=== PATIENT | female | born 1940 ===

== ENCOUNTER 2017-12-05 07:24 | Day surgery (SDC) | payer MEDICARE, OTHER ==
[2017-12-05 07:55] VITALS: BMI 37.1
[2017-12-05] MEDS ORDERED: Propofol 10 mg/ml Inj (20 ML) ONE ×2 (09:05→09:24)
[2017-12-05 10:34] VITALS: TEMP 97.5
[2017-12-05 10:35] VITALS: PULSE 70
[2017-12-05 10:47] VITALS: O2SAT 98
[2017-12-05 11:53] VITALS: BP 149/63; RESP 16
== END 2017-12-05 11:30 | disposition home or self-care (01) ==
LOC: C.ENDO 07:24
PROVIDERS: ATTEND Internal Medicine Gastroenterology
DX: Z12.11 Encounter for screening for malignant neoplasm of colon (principal); D3A.8 Other benign neuroendocrine tumors; K57.30 Diverticulosis of large intestine without perforation or abscess without bleeding; K64.1 Second degree hemorrhoids; K21.0 Gastro-esophageal reflux disease with esophagitis; K29.70 Gastritis, unspecified, without bleeding
CPT/HCPCS: 43239; 45378; 88305; 88312; 88313; 88342; J2001; J2704; J3010

== ENCOUNTER 2017-12-16 06:07 | Inpatient (IN) | payer MEDICARE, OTHER ==
[2017-12-16] MEDS ORDERED: Lactated Ringer's 1,000 ML IV ONE (07:45)
[2017-12-16] MEDS ORDERED: Simethicone 40 mg/0.6 ml Liquid (30 ml) ONE (08:02)
[2017-12-16] MEDS ORDERED: ePHEDrine 50 mg/ml Inj ONE (08:06)
[2017-12-16] MEDS ORDERED: Propofol 10 mg/ml Inj (20 ML) ONE ×2 (08:06→08:45)
[2017-12-16] MEDS ORDERED: Midazolam 2 MG/2 ML VIAL ONE (08:06)
[2017-12-16] MEDS ORDERED: Pantoprazole 80 MG in Sodium Chloride 0.9% 100 ML IV ONE (09:30)
[2017-12-16] MEDS ORDERED: Morphine 4 MG/ML VIAL IV PRN (09:36)
--- NOTE | 2017-12-16 09:48 | CP.PCM.CON ---
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 During the procedure, patient experienced a significant amount of bleeding which was treated with a combination of clipping , electrocautery and epinephrine. Bleeding was significantly reduced however patient was subsequently admitted for close observation. She had underwent EGD/ Colonoscopy on 12/05/17 due to worsening reflux symptoms with progressive substernal burning that started approximately 2 months prior. At that time, EGD/ Colonsocopy was significant for duodenal nodule that was biopsied and revealed well differentiated neuroendocrine tumor. Prior to todays procedure, patient denied chest pain, palpitations, SOB, abdominal pain, nausea, vomiting, fever, chills, cough. 12point ROS as per above otherwise negative PMH: as stated above PSH: lumpectomy Allergies: passion fruit Family hx: no reported family Hx of GI malignancy Social Hx: denies alcohol and illicit drug use Endoscopic Hx: Underwent EGD/Colonoscopy on 12/05/17; Colonoscopy revealed poor prep and diverticulosis; EGD revealed duodenal nodule that was biopsed and significant for well differentiated neuroendocrine tumor Past Patient History - Past Medical History & Family History Past Medical History?: Yes - Past Social History Smoking Status: Former Smoker - CARDIAC Hx Cardiac Disorders: Yes Hx Hypertension: Yes (PT DENIES THOUGH NOT ON MEDS) - PULMONARY Hx Respiratory Disorders: Yes Hx Asthma: Yes Hx Chronic Obstructive Pulmonary Disease (COPD): Yes - NEUROLOGICAL Hx Neurological Disorder: No - HEENT Hx HEENT Problems: Yes Hx Cataracts: Yes (RT EYE) - RENAL Hx Chronic Kidney Disease: No - ENDOCRINE/METABOLIC Hx Endocrine Disorders: No - HEMATOLOGICAL/ONCOLOGICAL Hx Blood Disorders: No - INTEGUMENTARY Hx Dermatological Problems: No - MUSCULOSKELETAL/RHEUMATOLOGICAL Hx Musculoskeletal Disorders: Yes Hx Back Pain: Yes Hx Degenerative Joint Disease: Yes Hx Falls: Yes Hx Fractures: Yes (LEFT FOOT) Other/Comment: SCIATICA - GASTROINTESTINAL Hx Gastrointestinal Disorders: Yes Hx Gall Bladder Disease: Yes - GENITOURINARY/GYNECOLOGICAL Hx Genitourinary Disorders: No - PSYCHIATRIC Hx Psychophysiologic Disorder: Yes Hx Anxiety: Yes Hx Depression: Yes - SURGICAL HISTORY Hx Surgeries: Yes Hx Breast Biopsy: Yes (X2 RT BREAST) Hx [place]: Yes [place] Hx Herniorrhaphy: Yes (RT INGUINAL X3) Hx Joint Replacement: Yes (BILATERAL KNEE ) Hx Orthopedic Surgery: Yes (SCREW RT FOOT) - ANESTHESIA Hx Anesthesia: Yes Hx Anesthesia Reactions: No Hx Malignant Hyperthermia: No Has any member of the family had a problem w/ anesthesia?: No Meds Allergies/Adverse Reactions: Allergies Allergy/AdvReac Type Severity Reaction Status Date / Time PASSION FRUIT Allergy Severe ANAPHYLAXIS Uncoded 11/03/13 11:17 - Medications Medications: Current Medications Piperacillin Sod/Tazobactam Sod (Zosyn 3.375 Gm Iv Premix) 3.375 gm in 50 mls @ 100 mls/hr IVPB Q6H FESTUS PRN Reason: Protocol Sodium Chloride (Sodium Chloride 0.9%) 1,000 mls @ 100 mls/hr IV .Q10H FESTUS Pantoprazole Sodium 80 mg/ (Sodium Chloride) 100 mls @ 10 mls/hr IV .Q10H FESTUS PRN Reason: 8 MG/HR Morphine Sulfate (Morphine) 2 mg IV Q4 PRN PRN Reason: Pain, moderate (4-7) Physical Exam - Constitutional Appears: No Acute Distress - Head Exam Head Exam: ATRAUMATIC, NORMOCEPHALIC - Eye Exam Eye Exam: EOMI Pupil Exam: PERRL - ENT Exam ENT Exam: Mucous Membranes Moist - Respiratory Exam Respiratory Exam: absent: Rales, Rhonchi, Wheezes - Cardiovascular Exam Cardiovascular Exam: +S1, +S2. absent: Gallop, Rubs - GI/Abdominal Exam GI & Abdominal Exam: Soft. absent: Distended, Firm, Rebound, Tenderness - Neurological Exam Neurological exam: Alert, Oriented x3 - Psychiatric Exam Psychiatric exam: Normal Affect, Normal Mood - Skin Skin Exam: Dry, Intact, Normal Color, Warm Results - Vital Signs Recent Vital Signs: Last Vital Signs Temp 97.8 F 12/16/17 08:10 Pulse 76 12/16/17 08:10 Resp 19 12/16/17 08:10 BP 121/52 L 12/16/17 08:10 Pulse Ox 98 12/16/17 08:10 - Labs Labs: Laboratory Results - last 24 hr 12/16/17 09:12 Blood Type O POSITIVE Assessment & Plan - Assessment and Plan (Free Text) Plan: 77yo female with history of HTN, asthma/copd, breast ca s/p lumpectomy admitted for GI bleed s/p 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 Flynn <Andrew Flynn - Last Filed: 12/16/17 14:12> Meds - Medications Medications: Current Medications Albuterol/Ipratropium (Duoneb 3 Mg/0.5 Mg (3 Ml) Ud) 3 ml INH RQ4 PRN PRN Reason: Shortness of Breath Dextrose (Dextrose 50% Inj) 0 ml IV STAT PRN; Protocol PRN Reason: Hypoglycemia Protocol Dextrose (Glutose 15) 15 gm PO ONCE PRN; Protocol PRN Reason: Hypoglycemia Protocol Glucagon (Glucagen Diagnostic Kit) 1 mg IM STAT PRN; Protocol PRN Reason: Hypoglycemia Protocol Hydromorphone HCl (Dilaudid) 1 mg IVP Q4H PRN PRN Reason: Pain, severe (8-10) Piperacillin Sod/Tazobactam Sod (Zosyn 3.375 Gm Iv Premix) 3.375 gm in 50 mls @ 100 mls/hr IVPB Q6H FESTUS PRN Reason: Protocol Sodium Chloride (Sodium Chloride 0.9%) 1,000 mls @ 100 mls/hr IV .Q10H FESTUS Pantoprazole Sodium 80 mg/ (Sodium Chloride) 100 mls @ 10 mls/hr IV .Q10H FESTUS PRN Reason: 8 MG/HR Last Admin: 12/16/17 11:03 Dose: 10 mls/hr Nicardipine HCl 25 mg/ Sodium (Chloride) 250 mls @ 25 mls/hr IV .Q10H FESTUS; 2.5 MG/HR PRN Reason: Protocol Last Titration: 12/16/17 12:43 Dose: 0 mg/hr, 0 mls/hr Dextrose (Dextrose 5% In Water 1000 Ml) 1,000 mls @ 0 mls/hr IV .Q0M PRN; Protocol; Per Protocol PRN Reason: Hypoglycemia Protocol Insulin Human Regular (Novolin R) 0 unit SC ACHS FESTUS PRN Reason: Protocol Results - Vital Signs Recent Vital Signs: Last Vital Signs Temp 97.3 F L 12/16/17 10:20 Pulse 67 12/16/17 10:20 Resp 24 12/16/17 10:20 BP 214/81 H 12/16/17 10:20 Pulse Ox 99 12/16/17 10:20 - Labs Result Diagrams: 12/16/17 11:25 12/16/17 11:25 Labs: Laboratory Results - last 24 hr 12/16/17 12/16/17 12/16/17 09:12 11:25 11:25 WBC 12.5 H D RBC 4.73 Hgb 13.5 Hct 41.6 MCV 88.0 MCH 28.5 MCHC 32.3 L RDW 13.9 Plt Count 135 MPV 10.7 Neut % (Auto) 82.0 H Lymph % (Auto) 11.4 L [place] % (Auto) 5.5 Eos % (Auto) 0.8 Baso % (Auto) 0.3 Neut # (Auto) 10.3 H Lymph # (Auto) 1.4 [place] # (Auto) 0.7 Eos # (Auto) 0.1 Baso # (Auto) 0.0 PT 11.6 INR 1.1 Sodium Potassium Chloride Carbon Dioxide Anion Gap BUN Creatinine Est GFR ( Amer) Est GFR (Non-Af Amer) Random Glucose Calcium Total Bilirubin AST ALT Alkaline Phosphatase Total Protein Albumin Globulin Albumin/Globulin Ratio Blood Type O POSITIVE Antibody Screen Negative 12/16/17 11:25 WBC RBC Hgb Hct MCV MCH MCHC RDW Plt Count MPV Neut % (Auto) Lymph % (Auto) [place] % (Auto) Eos % (Auto) Baso % (Auto) Neut # (Auto) Lymph # (Auto) [place] # (Auto) Eos # (Auto) Baso # (Auto) PT INR Sodium 141 Potassium 4.0 Chloride 104 Carbon Dioxide 25 Anion Gap 16 BUN 18 H Creatinine 1.2 Est GFR ( Amer) 52 Est GFR (Non-Af Amer) 43 Random Glucose 203 H Calcium 8.4 L Total Bilirubin 0.7 AST 56 H ALT 48 Alkaline Phosphatase 78 Total Protein 7.0 Albumin 4.0 Globulin 3.0 Albumin/Globulin Ratio 1.3 Blood Type Antibody Screen Attending/Attestation - Attestation I have personally seen and examined this patient.: Yes I have fully participated in the care of the patient.: Yes I have reviewed all pertinent clinical information: Yes Notes (Text): 12/16/17 14:10 77 year old female with h/o duodenal neuroendoscrine tumor s/p EGD/EUS with EMR today c/b bleeding and perforation s/p clip placement x 7, epi injection, and bipolar cautery. She is now admitted to ICU, she has abdominal pain, but is hemodynamically stable, Hgb was 13.5 on admission. Would repeat cbc at 3 pm. Obtain surgical eval with Dr. Alatorre. Recommend IV zosyn. Pain control. Bowel rest/NPO. IV hydration. Will follow.
[2017-12-16] MEDS ORDERED: HYDROmorphone 0.5 mg/0.5 ml ISec IVP PRN (09:58)
[2017-12-16] MEDS: Piperacill/Tazo 3.375gm in Dex 3.375 GM/50 ML BAG IVPB SCH ×3 (10:00→21:27)
[2017-12-16] MEDS: Pantoprazole 80 MG in Sodium Chloride 0.9% 100 ML IV SCH ×2 (11:03→20:15)
--- NOTE | 2017-12-16 11:21 | CP.PCM.CON ---
History of Present Illness - History of Present Illness History of Present Illness: Critical Care Consult Note History retrieved from GI's consult note, as patient is in immense pain and does not want to answer any questions. 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 During the procedure, patient experienced a significant amount of bleeding which was treated with a combination of clipping , electrocautery and epinephrine. Bleeding was significantly reduced however patient was subsequently admitted to ICU for close observation. She had underwent EGD/Colonoscopy on 12/05/17 due to worsening reflux symptoms with progressive substernal burning that started approximately 2 months prior. At that time, EGD/Colonsocopy was significant for duodenal nodule that was biopsied and revealed well differentiated neuroendocrine tumor. Currently monitoring H/H and BP with a Cardene drip. PMH: as stated above PSH: lumpectomy Allergies: passion fruit Family hx: no reported family Hx of GI malignancy Social Hx: denies alcohol and illicit drug use Endoscopic Hx: Underwent EGD/Colonoscopy on 12/05/17; Colonoscopy revealed poor prep and diverticulosis; EGD revealed duodenal nodule that was biopsed and significant for well differentiated neuroendocrine tumor Past Patient History - Past Medical History & Family History Past Medical History?: Yes - Past Social History Smoking Status: Former Smoker - CARDIAC Hx Cardiac Disorders: Yes Hx Hypertension: Yes (PT DENIES THOUGH NOT ON MEDS) - PULMONARY Hx Respiratory Disorders: Yes Hx Asthma: Yes Hx Chronic Obstructive Pulmonary Disease (COPD): Yes - NEUROLOGICAL Hx Neurological Disorder: No - HEENT Hx HEENT Problems: Yes Hx Cataracts: Yes (RT EYE) - RENAL Hx Chronic Kidney Disease: No - ENDOCRINE/METABOLIC Hx Endocrine Disorders: No - HEMATOLOGICAL/ONCOLOGICAL Hx Blood Disorders: No - INTEGUMENTARY Hx Dermatological Problems: No - MUSCULOSKELETAL/RHEUMATOLOGICAL Hx Musculoskeletal Disorders: Yes Hx Back Pain: Yes Hx Degenerative Joint Disease: Yes Hx Falls: Yes Hx Fractures: Yes (LEFT FOOT) Other/Comment: SCIATICA - GASTROINTESTINAL Hx Gastrointestinal Disorders: Yes Hx Gall Bladder Disease: Yes - GENITOURINARY/GYNECOLOGICAL Hx Genitourinary Disorders: No - PSYCHIATRIC Hx Psychophysiologic Disorder: Yes Hx Anxiety: Yes Hx Depression: Yes - SURGICAL HISTORY Hx Surgeries: Yes Hx Breast Biopsy: Yes (X2 RT BREAST) Hx Cholecystectomy: Yes (IN [place]) Hx Herniorrhaphy: Yes (RT INGUINAL X3) Hx Joint Replacement: Yes (BILATERAL KNEE ) Hx Orthopedic Surgery: Yes (SCREW RT FOOT) - ANESTHESIA Hx Anesthesia: Yes Hx Anesthesia Reactions: No Hx Malignant Hyperthermia: No Has any member of the family had a problem w/ anesthesia?: No Meds Allergies/Adverse Reactions: Allergies Allergy/AdvReac Type Severity Reaction Status Date / Time PASSION FRUIT Allergy Severe ANAPHYLAXIS Uncoded 11/03/13 11:17 - Medications Medications: Current Medications Hydromorphone HCl (Dilaudid) 1 mg IVP Q4H PRN PRN Reason: Pain, severe (8-10) Piperacillin Sod/Tazobactam Sod (Zosyn 3.375 Gm Iv Premix) 3.375 gm in 50 mls @ 100 mls/hr IVPB Q6H FESTUS PRN Reason: Protocol Sodium Chloride (Sodium Chloride 0.9%) 1,000 mls @ 100 mls/hr IV .Q10H FESTUS Pantoprazole Sodium 80 mg/ (Sodium Chloride) 100 mls @ 10 mls/hr IV .Q10H FESTUS PRN Reason: 8 MG/HR Last Admin: 12/16/17 11:03 Dose: 10 mls/hr Nicardipine HCl 25 mg/ Sodium (Chloride) 250 mls @ 25 mls/hr IV .Q10H FESTSU; 2.5 MG/HR PRN Reason: Protocol Physical Exam - Constitutional Appears: No Acute Distress - Head Exam Head Exam: ATRAUMATIC, NORMAL INSPECTION, NORMOCEPHALIC - Eye Exam Eye Exam: EOMI, Normal appearance, PERRL Pupil Exam: NORMAL ACCOMODATION - ENT Exam ENT Exam: Mucous Membranes Moist - Respiratory Exam Respiratory Exam: Clear to Auscultation Bilateral, NORMAL BREATHING PATTERN - Cardiovascular Exam Cardiovascular Exam: Tachycardia - GI/Abdominal Exam GI & Abdominal Exam: Normal Bowel Sounds, Soft, Tenderness - Extremities Exam Extremities exam: Positive for: normal inspection, pedal pulses present. Negative for: pedal edema, tenderness - Neurological Exam Neurological exam: Alert, CN II-XII Intact, Oriented x3 - Psychiatric Exam Psychiatric exam: Normal Affect, Normal Mood - Skin Skin Exam: Dry, Intact, Normal Color, Warm Results - Vital Signs Recent Vital Signs: Last Vital Signs Temp 97.3 F L 12/16/17 10:20 Pulse 67 12/16/17 10:20 Resp 24 12/16/17 10:20 BP 214/81 H 12/16/17 10:20 Pulse Ox 99 12/16/17 10:20 - Labs Result Diagrams: 12/16/17 11:25 12/16/17 11:25 Labs: Laboratory Results - last 24 hr 12/16/17 09:12 Blood Type O POSITIVE Antibody Screen Negative Assessment & Plan - Assessment and Plan (Free Text) Assessment: This is a 77yo female with history of hypertension, COPD, breast cancer s/p lumpectomy that presented to same day 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 During the procedure, patient experienced a significant amount of bleeding which was treated with a combination of clipping , electrocautery and epinephrine. Bleeding was significantly reduced however patient was subsequently admitted to ICU for close observation. She had underwent EGD/Colonoscopy on 12/05/17 due to worsening reflux symptoms with progressive substernal burning that started approximately 2 months prior. At that time, EGD/Colonsocopy was significant for duodenal nodule that was biopsied and revealed well differentiated neuroendocrine tumor. Currently monitoring H/H and BP with a Cardene drip. Plan: Neuro: GCS15 Cardio: A: Hypertension - Started on Cardene Drip - will titrate and continue to monitor Pulm: A: COPD - Duonebs Q4 PRN GI: A: duodenal carcinoid tumor- S/P endoscopic mucosal resection 12/16/17 GI - Dr Flynn - Previous hemorrhage - stabilized with a combination of clipping, electrocautery and epinephrine. - Started on PPI drip, IVF - Zosyn as per GI - Will continue to monitor Heme/ Onc: A: Hx breast cancer s/p lumpectomy Protonix - Protonix Drip - SCDs, VTE c/i post op / concern for bleeding DW Dr. Dao, Estefania Veliz DO, PGY-1
[2017-12-16 11:28] LABS: BASO % 0.3 % (0.0-2.0); EOS # 0.1 K/uL (0.0-0.7); EOS % 0.8 % (0.0-4.0); HEMOGLOBIN 13.5 g/dL (11.0-16.0); LYMPH # 1.4 K/uL (1.0-4.3); LYMPH % 11.4 % (20.0-40.0); MEAN CORPUSCULAR HEMOGLOBIN 28.5 pg (27.0-31.0); MEAN CORPUSCULAR HGB CONC 32.3 g/dL (33.0-37.0); MEAN PLATELET VOLUME 10.7 fL (7.2-11.7); MONO # 0.7 K/uL (0.0-0.8); MONO % 5.5 % (0.0-10.0); NEUT # 10.3 K/uL (1.8-7.0); RBC 4.73 Mil/uL (3.80-5.20); RED CELL DISTRIBUTION WIDTH 13.9 % (11.5-14.5); WHITE BLOOD COUNT 12.5 K/uL (4.8-10.8)
[2017-12-16 11:39] LABS: INR 1.1; PROTHROMBIN TIME 11.6 SECONDS (9.7-12.2)
[2017-12-16 11:42] LABS: ALB/GLOB RATIO 1.3 (1.0-2.1); CALCIUM 8.4 mg/dl (8.6-10.4)
[2017-12-16] MEDS: niCARdipine IV 25 MG in Sodium Chloride 0.9% 240 ML IV SCH ×2 (11:44→21:29)
--- NOTE | 2017-12-16 11:59 | CP.PCM.HP ---
<Estefania Veliz - Last Filed: 12/16/17 12:10> History of Present Illness - History of Present Illness History of Present Illness: History retrieved from GI's consult note, as patient is in immense pain and does not want to answer any questions. 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 During the procedure, patient experienced a significant amount of bleeding which was treated with a combination of clipping , electrocautery and epinephrine. Bleeding was significantly reduced however patient was subsequently admitted to ICU for close observation. She had underwent EGD/Colonoscopy on 12/05/17 due to worsening reflux symptoms with progressive substernal burning that started approximately 2 months prior. At that time, EGD/Colonsocopy was significant for duodenal nodule that was biopsied and revealed well differentiated neuroendocrine tumor. Currently monitoring H/H and BP with a Cardene drip. PMH: as stated above PSH: lumpectomy Allergies: passion fruit Family hx: no reported family Hx of GI malignancy Social Hx: denies alcohol and illicit drug use Endoscopic Hx: Underwent EGD/Colonoscopy on 12/05/17; Colonoscopy revealed poor prep and diverticulosis; EGD revealed duodenal nodule that was biopsed and significant for well differentiated neuroendocrine tumor Present on Admission - Present on Admission Any Indicators Present on Admission: No Past Patient History - Past Medical History & Family History Past Medical History?: Yes - Past Social History Smoking Status: Former Smoker - CARDIAC Hx Cardiac Disorders: Yes Hx Hypertension: Yes (PT DENIES THOUGH NOT ON MEDS) - PULMONARY Hx Respiratory Disorders: Yes Hx Asthma: Yes Hx Chronic Obstructive Pulmonary Disease (COPD): Yes - NEUROLOGICAL Hx Neurological Disorder: No - HEENT Hx HEENT Problems: Yes Hx Cataracts: Yes (RT EYE) - RENAL Hx Chronic Kidney Disease: No - ENDOCRINE/METABOLIC Hx Endocrine Disorders: No - HEMATOLOGICAL/ONCOLOGICAL Hx Blood Disorders: No - INTEGUMENTARY Hx Dermatological Problems: No - MUSCULOSKELETAL/RHEUMATOLOGICAL Hx Musculoskeletal Disorders: Yes Hx Back Pain: Yes Hx Degenerative Joint Disease: Yes Hx Falls: Yes Hx Fractures: Yes (LEFT FOOT) Other/Comment: SCIATICA - GASTROINTESTINAL Hx Gastrointestinal Disorders: Yes Hx Gall Bladder Disease: Yes - GENITOURINARY/GYNECOLOGICAL Hx Genitourinary Disorders: No - PSYCHIATRIC Hx Psychophysiologic Disorder: Yes Hx Anxiety: Yes Hx Depression: Yes - SURGICAL HISTORY Hx Surgeries: Yes Hx Breast Biopsy: Yes (X2 RT BREAST) Hx Cholecystectomy: Yes (IN [place]) Hx Herniorrhaphy: Yes (RT INGUINAL X3) Hx Joint Replacement: Yes (BILATERAL KNEE ) Hx Orthopedic Surgery: Yes (SCREW RT FOOT) - ANESTHESIA Hx Anesthesia: Yes Hx Anesthesia Reactions: No Hx Malignant Hyperthermia: No Has any member of the family had a problem w/ anesthesia?: No Meds Allergies/Adverse Reactions: Allergies Allergy/AdvReac Type Severity Reaction Status Date / Time PASSION FRUIT Allergy Severe ANAPHYLAXIS Uncoded 11/03/13 11:17 Physical Exam - Constitutional Appears: No Acute Distress - Head Exam Head Exam: ATRAUMATIC, NORMAL INSPECTION, NORMOCEPHALIC - Eye Exam Eye Exam: EOMI, Normal appearance, PERRL Pupil Exam: NORMAL ACCOMODATION - ENT Exam ENT Exam: Mucous Membranes Moist - Respiratory Exam Respiratory Exam: Clear to Auscultation Bilateral - Cardiovascular Exam Cardiovascular Exam: Tachycardia - GI/Abdominal Exam GI & Abdominal Exam: Normal Bowel Sounds, Soft, Tenderness. absent: Distended - Extremities Exam Extremities exam: Positive for: normal inspection, pedal pulses present. Negative for: pedal edema, tenderness - Back Exam Back exam: NORMAL INSPECTION - Neurological Exam Neurological exam: Alert, CN II-XII Intact, Oriented x3 - Psychiatric Exam Psychiatric exam: Normal Affect, Normal Mood - Skin Skin Exam: Dry, Intact, Normal Color, Warm Results - Vital Signs Recent Vital Signs: Last Vital Signs Temp 97.3 F L 12/16/17 10:20 Pulse 67 12/16/17 10:20 Resp 24 12/16/17 10:20 BP 214/81 H 12/16/17 10:20 Pulse Ox 99 12/16/17 10:20 - Labs Result Diagrams: 12/16/17 11:25 12/16/17 11:25 Labs: Laboratory Results - last 24 hr 12/16/17 12/16/17 12/16/17 09:12 11:25 11:25 WBC 12.5 H D RBC 4.73 Hgb 13.5 Hct 41.6 MCV 88.0 MCH 28.5 MCHC 32.3 L RDW 13.9 Plt Count 135 MPV 10.7 Neut % (Auto) 82.0 H Lymph % (Auto) 11.4 L [place] % (Auto) 5.5 Eos % (Auto) 0.8 Baso % (Auto) 0.3 Neut # (Auto) 10.3 H Lymph # (Auto) 1.4 [place] # (Auto) 0.7 Eos # (Auto) 0.1 Baso # (Auto) 0.0 PT 11.6 INR 1.1 Sodium Potassium Chloride Carbon Dioxide Anion Gap BUN Creatinine Est GFR ( Amer) Est GFR (Non-Af Amer) Random Glucose Calcium Total Bilirubin AST ALT Alkaline Phosphatase Total Protein Albumin Globulin Albumin/Globulin Ratio Blood Type O POSITIVE Antibody Screen Negative 12/16/17 11:25 WBC RBC Hgb Hct MCV MCH MCHC RDW Plt Count MPV Neut % (Auto) Lymph % (Auto) [place] % (Auto) Eos % (Auto) Baso % (Auto) Neut # (Auto) Lymph # (Auto) [place] # (Auto) Eos # (Auto) Baso # (Auto) PT INR Sodium 141 Potassium 4.0 Chloride 104 Carbon Dioxide 25 Anion Gap 16 BUN 18 H Creatinine 1.2 Est GFR ( Amer) 52 Est GFR (Non-Af Amer) 43 Random Glucose 203 H Calcium 8.4 L Total Bilirubin 0.7 AST 56 H ALT 48 Alkaline Phosphatase 78 Total Protein 7.0 Albumin 4.0 Globulin 3.0 Albumin/Globulin Ratio 1.3 Blood Type Antibody Screen Assessment & Plan - Assessment and Plan (Free Text) Assessment: This is a 77yo female with history of hypertension, COPD, breast cancer s/p lumpectomy that presented to same day 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 During the procedure, patient experienced a significant amount of bleeding which was treated with a combination of clipping , electrocautery and epinephrine. Bleeding was significantly reduced however patient was subsequently admitted to ICU for close observation. She had underwent EGD/Colonoscopy on 12/05/17 due to worsening reflux symptoms with progressive substernal burning that started approximately 2 months prior. At that time, EGD/Colonsocopy was significant for duodenal nodule that was biopsied and revealed well differentiated neuroendocrine tumor. Currently monitoring H/H and BP with a Cardene drip. Plan: Neuro: GCS15 Cardio: A: Hypertension - Started on Cardene Drip - will titrate and continue to monitor Pulm: A: COPD - Duonebs Q4 PRN GI: A: duodenal carcinoid tumor- S/P endoscopic mucosal resection 12/16/17 GI - Dr Flynn - Previous hemorrhage - stabilized with a combination of clipping, electrocautery and epinephrine. - Started on PPI drip, IVF - Zosyn as per GI - Will continue to monitor Heme/ Onc: A: Hx breast cancer s/p lumpectomy Protonix - Protonix Drip - SCDs, VTE c/i post op / concern for bleeding DW Dr. Hong, Estefania Veliz DO, PGY-1 <Silvano Hong - Last Filed: 12/16/17 14:12> Results - Vital Signs Recent Vital Signs: Last Vital Signs Temp 97.3 F L 12/16/17 10:20 Pulse 67 12/16/17 10:20 Resp 24 12/16/17 10:20 BP 214/81 H 12/16/17 10:20 Pulse Ox 99 12/16/17 10:20 - Labs Result Diagrams: 12/16/17 11:25 12/16/17 11:25 Labs: Laboratory Results - last 24 hr 12/16/17 12/16/17 12/16/17 09:12 11:25 11:25 WBC 12.5 H D RBC 4.73 Hgb 13.5 Hct 41.6 MCV 88.0 MCH 28.5 MCHC 32.3 L RDW 13.9 Plt Count 135 MPV 10.7 Neut % (Auto) 82.0 H Lymph % (Auto) 11.4 L [place] % (Auto) 5.5 Eos % (Auto) 0.8 Baso % (Auto) 0.3 Neut # (Auto) 10.3 H Lymph # (Auto) 1.4 [place] # (Auto) 0.7 Eos # (Auto) 0.1 Baso # (Auto) 0.0 PT 11.6 INR 1.1 Sodium Potassium Chloride Carbon Dioxide Anion Gap BUN Creatinine Est GFR ( Amer) Est GFR (Non-Af Amer) Random Glucose Calcium Total Bilirubin AST ALT Alkaline Phosphatase Total Protein Albumin Globulin Albumin/Globulin Ratio Blood Type O POSITIVE Antibody Screen Negative 12/16/17 11:25 WBC RBC Hgb Hct MCV MCH MCHC RDW Plt Count MPV Neut % (Auto) Lymph % (Auto) [place]res % (Auto) Eos % (Auto) Baso % (Auto) Neut # (Auto) Lymph # (Auto) [place] # (Auto) Eos # (Auto) Baso # (Auto) PT INR Sodium 141 Potassium 4.0 Chloride 104 Carbon Dioxide 25 Anion Gap 16 BUN 18 H Creatinine 1.2 Est GFR ( Amer) 52 Est GFR (Non-Af Amer) 43 Random Glucose 203 H Calcium 8.4 L Total Bilirubin 0.7 AST 56 H ALT 48 Alkaline Phosphatase 78 Total Protein 7.0 Albumin 4.0 Globulin 3.0 Albumin/Globulin Ratio 1.3 Blood Type Antibody Screen Attending/Attestation - Attestation I have personally seen and examined this patient.: Yes I have fully participated in the care of the patient.: Yes I have reviewed all pertinent clinical information: Yes Notes (Text): Medical attending: Patient was seen and examined by me. Agree with the medical driver's note The patient was still drowsy when I saw her. She has just came out of same day surgery. The blood pressure is still very high and she is on a cardene ggt at this moment. The patient has just had removal of a carcinoid tumor and probably the elevated HTN is a reflection of this. 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
[2017-12-16] MEDS ORDERED: Glucagon Recombinant 1 mg Inj IM PRN (12:08)
[2017-12-16] MEDS ORDERED: Dextrose 50% SYRINGE Inj (50 ml) IV PRN (12:08)
--- NOTE | 2017-12-16 13:21 | CT ---
PROCEDURE: CT Abdomen and Pelvis without intravenous contrast HISTORY: r/o perforation COMPARISON: None. TECHNIQUE: Without contrast.. Contrast dose: 0 Radiation dose: Total exam DLP = 1144.19 mGy-cm. This CT exam was performed using one or more of the following dose reduction techniques: Automated exposure control, adjustment of the mA and/or kV according to patient size, and/or use of iterative reconstruction technique. FINDINGS: LOWER THORAX: Left lower lobe linear scar/ atelectasis. Minimal bilateral lower lobe dependent pleural thickening. LIVER: Normal size and contour. Mild diffusely diminished attenuation consistent with fatty infiltration. Smooth contour. No mass. No biliary dilatation. GALLBLADDER AND BILE DUCTS: Status post cholecystectomy. Surgical clips in gallbladder fossa. PANCREAS: Unremarkable. No gross lesion or ductal dilatation. SPLEEN: Unremarkable. ADRENALS: Unremarkable. No mass. KIDNEYS AND URETERS: Unremarkable. No hydronephrosis. No solid mass. VASCULATURE: Unremarkable. No aortic aneurysm. BOWEL: No bowel obstruction. Diverticulosis of descending and sigmoid colon without evidence of diverticulitis. APPENDIX: Not identified. No secondary findings to suggest appendicitis peer PERITONEUM: There is free intraperitoneal air seen lateral to the 1st and 2nd portions of the duodenum extending into the gallbladder fossa and nasim hepatis region. There is also some gas seen in the right perinephric space abutting the right kidney, within Gerota's fascia. Question is raised as to whether introitus fascia has been violated. No evidence of hemoperitoneum. No generalized pneumoperitoneum. LYMPH NODES: Unremarkable. No enlarged lymph nodes. BLADDER: Unremarkable. REPRODUCTIVE: Normal postmenopausal uterus BONES: No acute fracture. Grade 1 retrolisthesis at L 2-3 and L3-4, likely degenerative in origin. No spondylolysis. OTHER FINDINGS: None. IMPRESSION: Intraperitoneal air about 1st and 2nd duodenum extending into gallbladder fossa/ nasim hepatis. There is also seen adjacent to the right kidney, laterally, in the perinephric space. See above. No hemoperitoneum. No other acute abnormality. These findings were discussed by telephone with Dr. Bucio at 1:16 p.m. on 12/16/2017.
[2017-12-16] MEDS: Sodium Chloride 0.9% 1,000 ML IV SCH ×2 (13:25→19:37)
[2017-12-16] MEDS: Albuterol-Ipratrop 3 mg / 0.5 (3 ml) UD INH PRN (14:24)
[2017-12-16 15:37] LABS: BASO % 0.3 % (0.0-2.0); EOS % 0.1 % (0.0-4.0); HEMOGLOBIN 13.1 g/dL (11.0-16.0); LYMPH # 0.7 K/uL (1.0-4.3); LYMPH % 7.3 % (20.0-40.0); MEAN CELL VOLUME 87.8 fL (81.0-99.0); MEAN CORPUSCULAR HEMOGLOBIN 28.9 pg (27.0-31.0); MEAN CORPUSCULAR HGB CONC 32.9 g/dL (33.0-37.0); MEAN PLATELET VOLUME 10.2 fL (7.2-11.7); MONO # 0.8 K/uL (0.0-0.8); MONO % 7.5 % (0.0-10.0); NEUT # 8.6 K/uL (1.8-7.0); NEUT % 84.8 % (50.0-75.0); NRBC % 0.1 % (0.0-2.0); PLATELET COUNT 147 K/uL (130-400); RBC 4.55 Mil/uL (3.80-5.20); WHITE BLOOD COUNT 10.2 K/uL (4.8-10.8)
[2017-12-16 15:56] LABS: HDL CHOLESTEROL 53 mg/dL (30-70)
[2017-12-16] MEDS: HYDROmorphone 0.5 mg/0.5 ml ISec IVP PRN ×2 (16:01→20:05)
[2017-12-16 16:03] LABS: LYMPHOCYTE 11 % (20-40); MONOCYTE 6 % (0-10); NEUTROPHIL 83 % (50-75); PLATELET ESTIMATE NORMAL (NORMAL); TOTAL CELLS COUNTED 100
[2017-12-16 16:06] LABS: LDL CHOLESTEROL 114 mg/dL (0-129)
[2017-12-16] MEDS: (Novolin R) Insulin Human Regular 100 units/ml vial SC SCH ×2 (16:30→21:30)
--- NOTE | 2017-12-16 16:43 | CP.PCM.CON ---
<Peewee [place] - Last Filed: 12/16/17 16:40> History of Present Illness - History of Present Illness History of Present Illness: General Surgery Consult for Dr. 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 During the procedure she experienced significant bleeding which was managed through clipping, electrocautery and epinephrine. The carcinoid tumor was discovered on 12/05/17 when she went in for an endoscopy and colonoscopy scheduled for other unrelated reasons. At bedside she is tired and in pain, through agreeable to answering several questions. She describes her pain as being localized to her throat and epigastrium. She also complains of a cough and sciatic pain. She has no other complaints at this time. PMH: HTN, COPD, breast cancer s/p lumpectomy x2, asthma, cataracts of right eye , sciatica, anxiety, depression SMH: Lumpectomy x2 (as stated above), cholecystectomy, right inguinal hernia repair x3, b/l knee replacement FMH: Denies (No history of GI malignancies) Social: ~10 year remote history of tobacco use (quit 25-30 years ago); denies use of alcohol and drugs Allergies: Passion fruit Review of Systems - Review of Systems All systems: reviewed and no additional remarkable complaints except - Constitutional Constitutional: absent: Chills, Fever - EENT Eyes: absent: Blurred Vision, Change in Vision - Cardiovascular Cardiovascular: absent: Chest Pain, Palpitations - Respiratory Respiratory: Dyspnea, Pain on Inspiration - Gastrointestinal Gastrointestinal: Abdominal Pain. absent: Vomiting Past Patient History - Past Medical History & Family History Past Medical History?: Yes - Past Social History Smoking Status: Former Smoker - CARDIAC Hx Cardiac Disorders: Yes Hx Hypertension: Yes (PT DENIES THOUGH NOT ON MEDS) - PULMONARY Hx Respiratory Disorders: Yes Hx Asthma: Yes Hx Chronic Obstructive Pulmonary Disease (COPD): Yes - NEUROLOGICAL Hx Neurological Disorder: No - HEENT Hx HEENT Problems: Yes Hx Cataracts: Yes (RT EYE) - RENAL Hx Chronic Kidney Disease: No - ENDOCRINE/METABOLIC Hx Endocrine Disorders: No - HEMATOLOGICAL/ONCOLOGICAL Hx Blood Disorders: No - INTEGUMENTARY Hx Dermatological Problems: No - MUSCULOSKELETAL/RHEUMATOLOGICAL Hx Musculoskeletal Disorders: Yes Hx Back Pain: Yes Hx Degenerative Joint Disease: Yes Hx Falls: Yes Hx Fractures: Yes (LEFT FOOT) Other/Comment: SCIATICA - GASTROINTESTINAL Hx Gastrointestinal Disorders: Yes Hx Gall Bladder Disease: Yes - GENITOURINARY/GYNECOLOGICAL Hx Genitourinary Disorders: No - PSYCHIATRIC Hx Psychophysiologic Disorder: Yes Hx Anxiety: Yes Hx Depression: Yes - SURGICAL HISTORY Hx Surgeries: Yes Hx Breast Biopsy: Yes (X2 RT BREAST) Hx [place]olecystectomy: Yes ([place]) Hx Herniorrhaphy: Yes (RT INGUINAL X3) Hx Joint Replacement: Yes (BILATERAL KNEE ) Hx Orthopedic Surgery: Yes (SCREW RT FOOT) - ANESTHESIA Hx Anesthesia: Yes Hx Anesthesia Reactions: No Hx Malignant Hyperthermia: No Has any member of the family had a problem w/ anesthesia?: No Meds Allergies/Adverse Reactions: Allergies Allergy/AdvReac Type Severity Reaction Status Date / Time PASSION FRUIT Allergy Severe ANAPHYLAXIS Uncoded 11/03/13 11:17 - Medications Medications: Current Medications Albuterol/Ipratropium (Duoneb 3 Mg/0.5 Mg (3 Ml) Ud) 3 ml INH RQ4 PRN PRN Reason: Shortness of Breath Last Admin: 12/16/17 14:24 Dose: 3 ml Dextrose (Dextrose 50% Inj) 0 ml IV STAT PRN; Protocol PRN Reason: Hypoglycemia Protocol Dextrose (Glutose 15) 15 gm PO ONCE PRN; Protocol PRN Reason: Hypoglycemia Protocol Glucagon (Glucagen Diagnostic Kit) 1 mg IM STAT PRN; Protocol PRN Reason: Hypoglycemia Protocol Hydralazine HCl (Apresoline) 10 mg IVP Q6H PRN PRN Reason: Sore Throat Hydromorphone HCl (Dilaudid) 1 mg IVP Q4H PRN PRN Reason: Pain, severe (8-10) Last Admin: 12/16/17 16:01 Dose: 1 mg Piperacillin Sod/Tazobactam Sod (Zosyn 3.375 Gm Iv Premix) 3.375 gm in 50 mls @ 100 mls/hr IVPB Q6H FESTUS PRN Reason: Protocol Last Admin: 12/16/17 15:36 Dose: 100 mls/hr Sodium Chloride (Sodium Chloride 0.9%) 1,000 mls @ 100 mls/hr IV .Q10H FESTUS Pantoprazole Sodium 80 mg/ (Sodium Chloride) 100 mls @ 10 mls/hr IV .Q10H FESTUS PRN Reason: 8 MG/HR Last Admin: 12/16/17 11:03 Dose: 10 mls/hr Nicardipine HCl 25 mg/ Sodium (Chloride) 250 mls @ 25 mls/hr IV .Q10H FESTUS; 2.5 MG/HR PRN Reason: Protocol Last Titration: 12/16/17 12:43 Dose: 0 mg/hr, 0 mls/hr Dextrose (Dextrose 5% In Water 1000 Ml) 1,000 mls @ 0 mls/hr IV .Q0M PRN; Protocol; Per Protocol PRN Reason: Hypoglycemia Protocol Insulin Human Regular (Novolin R) 0 unit SC ACHS FESTUS PRN Reason: Protocol Physical Exam - Constitutional Appears: No Acute Distress - Head Exam Head Exam: ATRAUMATIC, NORMOCEPHALIC - Eye Exam Eye Exam: EOMI, Normal appearance - ENT Exam ENT Exam: Mucous Membranes Moist - Respiratory Exam Respiratory Exam: NORMAL BREATHING PATTERN - Cardiovascular Exam Cardiovascular Exam: +S1, +S2 - GI/Abdominal Exam GI & Abdominal Exam: Soft. absent: Distended, Firm, Guarding, Hernia Additional comments: Localized tenderness to the epigastrium - Neurological Exam Neurological exam: Alert, Oriented x3 - Psychiatric Exam Psychiatric exam: Normal Affect, Normal Mood - Skin Skin Exam: Intact, Warm Results - Vital Signs Recent Vital Signs: Last Vital Signs Temp 97.3 F L 12/16/17 10:20 Pulse 76 12/16/17 14:25 Resp 24 12/16/17 10:20 BP 214/81 H 12/16/17 10:20 Pulse Ox 99 12/16/17 10:20 - Labs Result Diagrams: 12/16/17 15:34 12/16/17 11:25 Labs: Laboratory Results - last 24 hr 12/16/17 12/16/17 12/16/17 09:12 11:25 11:25 WBC 12.5 H D RBC 4.73 Hgb 13.5 Hct 41.6 MCV 88.0 MCH 28.5 MCHC 32.3 L RDW 13.9 Plt Count 135 MPV 10.7 Neut % (Auto) 82.0 H Lymph % (Auto) 11.4 L Lee % (Auto) 5.5 Eos % (Auto) 0.8 Baso % (Auto) 0.3 Neut # (Auto) 10.3 H Lymph # (Auto) 1.4 Lee # (Auto) 0.7 Eos # (Auto) 0.1 Baso # (Auto) 0.0 Neutrophils % (Manual) Lymphocytes % (Manual) Monocytes % (Manual) Platelet Estimate PT 11.6 INR 1.1 Sodium Potassium Chloride Carbon Dioxide Anion Gap BUN Creatinine Est GFR ( Amer) Est GFR (Non-Af Amer) Random Glucose Hemoglobin A1c Calcium Total Bilirubin AST ALT Alkaline Phosphatase Total Protein Albumin Globulin Albumin/Globulin Ratio Triglycerides Cholesterol LDL Cholesterol Direct HDL Cholesterol Blood Type O POSITIVE Antibody Screen Negative 12/16/17 12/16/17 12/16/17 11:25 15:34 15:34 WBC RBC Hgb Hct MCV MCH MCHC RDW Plt Count MPV Neut % (Auto) Lymph % (Auto) Lee % (Auto) Eos % (Auto) Baso % (Auto) Neut # (Auto) Lymph # (Auto) Lee # (Auto) Eos # (Auto) Baso # (Auto) Neutrophils % (Manual) Lymphocytes % (Manual) Monocytes % (Manual) Platelet Estimate PT INR Sodium 141 Potassium 4.0 Chloride 104 Carbon Dioxide 25 Anion Gap 16 BUN 18 H Creatinine 1.2 Est GFR ( Amer) 52 Est GFR (Non-Af Amer) 43 Random Glucose 203 H Hemoglobin A1c 5.9 Calcium 8.4 L Total Bilirubin 0.7 AST 56 H ALT 48 Alkaline Phosphatase 78 Total Protein 7.0 Albumin 4.0 Globulin 3.0 Albumin/Globulin Ratio 1.3 Triglycerides 78 Cholesterol 183 LDL Cholesterol Direct 114 HDL Cholesterol 53 Blood Type Antibody Screen 12/16/17 15:34 WBC 10.2 RBC 4.55 Hgb 13.1 Hct 39.9 MCV 87.8 MCH 28.9 MCHC 32.9 L RDW 14.0 Plt Count 147 MPV 10.2 Neut % (Auto) 84.8 H Lymph % (Auto) 7.3 L Lee % (Auto) 7.5 Eos % (Auto) 0.1 Baso % (Auto) 0.3 Neut # (Auto) 8.6 H Lymph # (Auto) 0.7 L Lee # (Auto) 0.8 Eos # (Auto) 0.0 Baso # (Auto) 0.0 Neutrophils % (Manual) 83 H Lymphocytes % (Manual) 11 L Monocytes % (Manual) 6 Platelet Estimate Normal PT INR Sodium Potassium Chloride Carbon Dioxide Anion Gap BUN Creatinine Est GFR ( Amer) Est GFR (Non-Af Amer) Random Glucose Hemoglobin A1c Calcium Total Bilirubin AST ALT Alkaline Phosphatase Total Protein Albumin Globulin Albumin/Globulin Ratio Triglycerides Cholesterol LDL Cholesterol Direct HDL Cholesterol Blood Type Antibody Screen - Imaging and Cardiology CT scan - abdomen Status: Image reviewed by me, Report reviewed by me Assessment & Plan - Assessment and Plan (Free Text) Assessment: 77F s/p EMR of carcinoid with free air on CT Plan: NGT to suction NPO Upper GI series 72 hours post proceedure IVF Further recs per Dr. Celi [place] PGY2 <Deion Alatorre B - Last Filed: 12/16/17 21:27> Meds - Medications Medications: Current Medications Albuterol/Ipratropium (Duoneb 3 Mg/0.5 Mg (3 Ml) Ud) 3 ml INH RQ4 PRN PRN Reason: Shortness of Breath Last Admin: 12/16/17 14:24 Dose: 3 ml Dextrose (Dextrose 50% Inj) 0 ml IV STAT PRN; Protocol PRN Reason: Hypoglycemia Protocol Dextrose (Glutose 15) 15 gm PO ONCE PRN; Protocol PRN Reason: Hypoglycemia Protocol Glucagon (Glucagen Diagnostic Kit) 1 mg IM STAT PRN; Protocol PRN Reason: Hypoglycemia Protocol Hydralazine HCl (Apresoline) 10 mg IVP Q6H PRN PRN Reason: Sore Throat Last Admin: 12/16/17 19:24 Dose: 10 mg Hydromorphone HCl (Dilaudid) 1 mg IVP Q4H PRN PRN Reason: Pain, severe (8-10) Piperacillin Sod/Tazobactam Sod (Zosyn 3.375 Gm Iv Premix) 3.375 gm in 50 mls @ 100 mls/hr IVPB Q6H FESTUS PRN Reason: Protocol Last Admin: 12/16/17 15:36 Dose: 100 mls/hr Sodium Chloride (Sodium Chloride 0.9%) 1,000 mls @ 100 mls/hr IV .Q10H FESTUS Last Admin: 12/16/17 19:37 Dose: Not Given Pantoprazole Sodium 80 mg/ (Sodium Chloride) 100 mls @ 10 mls/hr IV .Q10H FESTUS PRN Reason: 8 MG/HR Last Admin: 12/16/17 20:15 Dose: 10 mls/hr Nicardipine HCl 25 mg/ Sodium (Chloride) 250 mls @ 25 mls/hr IV .Q10H FESTUS; 2.5 MG/HR PRN Reason: Protocol Last Titration: 12/16/17 12:43 Dose: 0 mg/hr, 0 mls/hr Dextrose (Dextrose 5% In Water 1000 Ml) 1,000 mls @ 0 mls/hr IV .Q0M PRN; Protocol; Per Protocol PRN Reason: Hypoglycemia Protocol Insulin Human Regular (Novolin R) 0 unit SC ACHS FESTUS PRN Reason: Protocol Last Admin: 12/16/17 16:30 Dose: Not Given Results - Vital Signs Recent Vital Signs: Last Vital Signs Temp 98.4 F 12/16/17 16:00 Pulse 70 12/16/17 18:50 Resp 18 12/16/17 16:00 BP 161/65 H 12/16/17 18:50 Pulse Ox 100 12/16/17 16:00 - Labs Result Diagrams: 12/16/17 21:03 12/16/17 11:25 Labs: Laboratory Results - last 24 hr 12/16/17 12/16/17 12/16/17 09:12 11:25 11:25 WBC 12.5 H D RBC 4.73 Hgb 13.5 Hct 41.6 MCV 88.0 MCH 28.5 MCHC 32.3 L RDW 13.9 Plt Count 135 MPV 10.7 Neut % (Auto) 82.0 H Lymph % (Auto) 11.4 L Lee % (Auto) 5.5 Eos % (Auto) 0.8 Baso % (Auto) 0.3 Neut # (Auto) 10.3 H Lymph # (Auto) 1.4 Lee # (Auto) 0.7 Eos # (Auto) 0.1 Baso # (Auto) 0.0 Neutrophils % (Manual) Lymphocytes % (Manual) Monocytes % (Manual) Platelet Estimate PT 11.6 INR 1.1 Sodium Potassium Chloride Carbon Dioxide Anion Gap BUN Creatinine Est GFR ( Amer) Est GFR (Non-Af Amer) POC Glucose (mg/dL) Random Glucose Hemoglobin A1c Calcium Total Bilirubin AST ALT Alkaline Phosphatase Total Protein Albumin Globulin Albumin/Globulin Ratio Triglycerides Cholesterol LDL Cholesterol Direct HDL Cholesterol Blood Type O POSITIVE Antibody Screen Negative 12/16/17 12/16/17 12/16/17 11:25 15:34 15:34 WBC RBC Hgb Hct MCV MCH MCHC RDW Plt Count MPV Neut % (Auto) Lymph % (Auto) Lee % (Auto) Eos % (Auto) Baso % (Auto) Neut # (Auto) Lymph # (Auto) Lee # (Auto) Eos # (Auto) Baso # (Auto) Neutrophils % (Manual) Lymphocytes % (Manual) Monocytes % (Manual) Platelet Estimate PT INR Sodium 141 Potassium 4.0 Chloride 104 Carbon Dioxide 25 Anion Gap 16 BUN 18 H Creatinine 1.2 Est GFR ( Amer) 52 Est GFR (Non-Af Amer) 43 POC Glucose (mg/dL) Random Glucose 203 H Hemoglobin A1c 5.9 Calcium 8.4 L Total Bilirubin 0.7 AST 56 H ALT 48 Alkaline Phosphatase 78 Total Protein 7.0 Albumin 4.0 Globulin 3.0 Albumin/Globulin Ratio 1.3 Triglycerides 78 Cholesterol 183 LDL Cholesterol Direct 114 HDL Cholesterol 53 Blood Type Antibody Screen 12/16/17 12/16/17 12/16/17 15:34 16:29 21:03 WBC 10.2 12.1 H RBC 4.55 4.86 Hgb 13.1 13.7 Hct 39.9 42.6 MCV 87.8 87.8 MCH 28.9 28.1 MCHC 32.9 L 32.0 L RDW 14.0 13.9 Plt Count 147 153 MPV 10.2 10.2 Neut % (Auto) 84.8 H Lymph % (Auto) 7.3 L Lee % (Auto) 7.5 Eos % (Auto) 0.1 Baso % (Auto) 0.3 Neut # (Auto) 8.6 H Lymph # (Auto) 0.7 L Lee # (Auto) 0.8 Eos # (Auto) 0.0 Baso # (Auto) 0.0 Neutrophils % (Manual) 83 H Lymphocytes % (Manual) 11 L Monocytes % (Manual) 6 Platelet Estimate Normal PT INR Sodium Potassium Chloride Carbon Dioxide Anion Gap BUN Creatinine Est GFR ( Amer) Est GFR (Non-Af Amer) POC Glucose (mg/dL) 136 H Random Glucose Hemoglobin A1c Calcium Total Bilirubin AST ALT Alkaline Phosphatase Total Protein Albumin Globulin Albumin/Globulin Ratio Triglycerides Cholesterol LDL Cholesterol Direct HDL Cholesterol Blood Type Antibody Screen Attending/Attestation - Attestation I have personally seen and examined this patient.: Yes I have fully participated in the care of the patient.: Yes I have reviewed all pertinent clinical information: Yes Notes (Text): Pt was seen and examined at bedside Agree with above note and assessment Pt with abdominal pain and mild tenderness C/o abdominal pain Abdomen: Soft, Mild tender, distended Labs and radiology reviewed Ass: Duodenal perforation s/p EGD and Carcinoid resection Plan: NPO, IVF IV antibiotics Upper GI series after 72 hours. c.w current mx Plan d.w pt in detail Risk and benefit explained in detail.
[2017-12-16 21:08] LABS: HEMOGLOBIN 13.7 g/dL (11.0-16.0); MEAN CELL VOLUME 87.8 fL (81.0-99.0); MEAN CORPUSCULAR HEMOGLOBIN 28.1 pg (27.0-31.0); MEAN PLATELET VOLUME 10.2 fL (7.2-11.7); RBC 4.86 Mil/uL (3.80-5.20); RED CELL DISTRIBUTION WIDTH 13.9 % (11.5-14.5); WHITE BLOOD COUNT 12.1 K/uL (4.8-10.8)
[2017-12-17] MEDS: HYDROmorphone 1 mg/ml ISec IVP PRN ×2 (00:15→04:50)
[2017-12-17] MEDS: Piperacill/Tazo 3.375gm in Dex 3.375 GM/50 ML BAG IVPB SCH ×4 (03:03→21:19)
[2017-12-17] MEDS: Sodium Chloride 0.9% 1,000 ML IV SCH ×4 (06:03→20:15)
[2017-12-17] MEDS: Pantoprazole 80 MG in Sodium Chloride 0.9% 100 ML IV SCH ×2 (06:04→16:13)
[2017-12-17 06:36] LABS: BASO % 0.1 % (0.0-2.0); LYMPH # 0.4 K/uL (1.0-4.3); LYMPH % 5.2 % (20.0-40.0); MEAN CELL VOLUME 88.2 fL (81.0-99.0); MEAN CORPUSCULAR HEMOGLOBIN 29.2 pg (27.0-31.0); MEAN CORPUSCULAR HGB CONC 33.2 g/dL (33.0-37.0); MONO # 0.7 K/uL (0.0-0.8); MONO % 8.2 % (0.0-10.0); NEUT # 7.2 K/uL (1.8-7.0); NEUT % 86.5 % (50.0-75.0); PLATELET COUNT 176 K/uL (130-400); RBC 5.12 Mil/uL (3.80-5.20); WHITE BLOOD COUNT 8.3 K/uL (4.8-10.8)
[2017-12-17 06:56] LABS: ALB/GLOB RATIO 1.4 (1.0-2.1); ALBUMIN 3.9 g/dL (3.5-5.0); CALCIUM 7.4 mg/dl (8.6-10.4)
[2017-12-17] MEDS: niCARdipine IV 25 MG in Sodium Chloride 0.9% 240 ML IV SCH (07:02)
[2017-12-17 08:34] LABS: BANDS 10 % (0-2); LYMPHOCYTE 6 % (20-40); MONOCYTE 9 % (0-10); NEUTROPHIL 75 % (50-75); PLATELET ESTIMATE NORMAL (NORMAL); TOTAL CELLS COUNTED 100
[2017-12-17] MEDS: (Novolin R) Insulin Human Regular 100 units/ml vial SC SCH ×4 (08:41→23:08)
--- NOTE | 2017-12-17 09:18 | CP.PCM.PN ---
<Benita Hurst - Last Filed: 12/17/17 09:29> Subjective - Date & Time of Evaluation Date of Evaluation: 12/17/17 Time of Evaluation: 07:30 - Subjective Subjective: GI Fellow PGY4 Progress Note Pt seen and evaluated at bedside, pt doing okay and reports abdominal pain with any movement. Per nursing, pt required increased dosing of Dilaudid q4hrs for abdominal pain. No BM, no flatus per pt. Pt hemodynamically stable, BP elevated only during episodes of pain. No GI bleeding. NGT placed by surgery this am. ROS:A 12pt ROS was negative except as above. Objective - Vital Signs/Intake and Output Vital Signs (last 24 hours): Temp Pulse Resp BP Pulse Ox 99 F 102 H 21 109/65 96 12/17/17 08:00 12/17/17 09:00 12/17/17 09:00 12/17/17 09:00 12/17/17 09:00 Intake and Output: 12/17/17 12/17/17 06:59 18:59 Intake Total 1320 220 Output Total 500 Balance 820 220 - Medications Medications: Current Medications Albuterol/Ipratropium (Duoneb 3 Mg/0.5 Mg (3 Ml) Ud) 3 ml INH RQ4 PRN PRN Reason: Shortness of Breath Last Admin: 12/16/17 14:24 Dose: 3 ml Dextrose (Dextrose 50% Inj) 0 ml IV STAT PRN; Protocol PRN Reason: Hypoglycemia Protocol Dextrose (Glutose 15) 15 gm PO ONCE PRN; Protocol PRN Reason: Hypoglycemia Protocol Glucagon (Glucagen Diagnostic Kit) 1 mg IM STAT PRN; Protocol PRN Reason: Hypoglycemia Protocol Hydralazine HCl (Apresoline) 10 mg IVP Q6H PRN PRN Reason: Sore Throat Last Admin: 12/16/17 19:24 Dose: 10 mg Hydromorphone HCl (Dilaudid) 1 mg IVP Q4H PRN PRN Reason: Pain, severe (8-10) Last Admin: 12/17/17 04:50 Dose: 1 mg Piperacillin Sod/Tazobactam Sod (Zosyn 3.375 Gm Iv Premix) 3.375 gm in 50 mls @ 100 mls/hr IVPB Q6H FESTUS PRN Reason: Protocol Last Admin: 12/17/17 03:03 Dose: 100 mls/hr Sodium Chloride (Sodium Chloride 0.9%) 1,000 mls @ 100 mls/hr IV .Q10H FESTUS Last Admin: 12/17/17 06:03 Dose: Not Given Pantoprazole Sodium 80 mg/ (Sodium Chloride) 100 mls @ 10 mls/hr IV .Q10H FESTUS PRN Reason: 8 MG/HR Last Admin: 12/17/17 06:04 Dose: 10 mls/hr Nicardipine HCl 25 mg/ Sodium (Chloride) 250 mls @ 25 mls/hr IV .Q10H FESTUS; 2.5 MG/HR PRN Reason: Protocol Last Admin: 12/17/17 07:02 Dose: Not Given Dextrose (Dextrose 5% In Water 1000 Ml) 1,000 mls @ 0 mls/hr IV .Q0M PRN; Protocol; Per Protocol PRN Reason: Hypoglycemia Protocol Insulin Human Regular (Novolin R) 0 unit SC ACHS FESTUS PRN Reason: Protocol Last Admin: 12/17/17 08:41 Dose: Not Given - Labs Labs: 12/17/17 06:28 12/17/17 06:27 PT 11.6 SECONDS (9.7-12.2) 12/16/17 11:25 INR 1.1 12/16/17 11:25 - Constitutional Appears: Non-toxic, No Acute Distress - Head Exam Head Exam: ATRAUMATIC, NORMAL INSPECTION, NORMOCEPHALIC - Eye Exam Eye Exam: EOMI, Normal appearance, PERRL Pupil Exam: PERRL - ENT Exam ENT Exam: Mucous Membranes Dry Additional comments: NGT - Neck Exam Neck Exam: Full ROM - Respiratory Exam Respiratory Exam: Decreased Breath Sounds, NORMAL BREATHING PATTERN - Cardiovascular Exam Cardiovascular Exam: Tachycardia, REGULAR RHYTHM, +S1 - GI/Abdominal Exam GI & Abdominal Exam: Distended, Soft, Tenderness, Hypoactive Bowel Sounds. absent: Organomegaly - Rectal Exam Rectal Exam: Deferred - Neurological Exam Neurological Exam: Alert, Awake, Oriented x3 - Psychiatric Exam Psychiatric exam: Normal Affect, Normal Mood - Skin Skin Exam: Dry, Intact, Normal Color, Warm Assessment and Plan - Assessment and Plan (Free Text) Assessment: This is a 77 year old female with past medical history of hypertension, COPD, breast cancer s/p lumpectomy that presented to same day 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 Pt is s/p EGD/EUS with EMR complicated by bleeding and perforation s/p clip placement x 7, epi injection, and bipolar cautery. 1. Duodenal perforation 2. GI bleeding 3. EMR of carcinoid tumor in duodenum Plan: -Continue supportive care with pain control - Pt with NGT, will discuss with surgery for possible discontinuation of NGT with no bilious outpt - EMR of duodenal carcinoid tumor complicated by bleed that was treated with a combination of clipping, electrocautery and epinephrine - CT A/P reviewed with free intraperitoneal air, consistent with duodenal perforation - Pt clinically and hemodynamically stable - Hgb stable with no acute blood loss anemia, not requiring transfusion - Monitor Hgb, labs daily - Protonix drip - IV abx Zosyn - IVF hydration - NPO - Appreciate surgical consult, plan for upper GI series within 72 hrs - Will continue to follow pt closely <Thomas Cline - Last Filed: 12/17/17 11:55> Objective - Vital Signs/Intake and Output Vital Signs (last 24 hours): Temp Pulse Resp BP Pulse Ox 99 F 102 H 21 109/65 96 12/17/17 08:00 12/17/17 09:00 12/17/17 09:00 12/17/17 09:00 12/17/17 09:00 Intake and Output: 12/17/17 12/17/17 06:59 18:59 Intake Total 1320 220 Output Total 500 Balance 820 220 - Medications Medications: Current Medications Albuterol/Ipratropium (Duoneb 3 Mg/0.5 Mg (3 Ml) Ud) 3 ml INH RQ4 PRN PRN Reason: Shortness of Breath Last Admin: 12/16/17 14:24 Dose: 3 ml Dextrose (Dextrose 50% Inj) 0 ml IV STAT PRN; Protocol PRN Reason: Hypoglycemia Protocol Dextrose (Glutose 15) 15 gm PO ONCE PRN; Protocol PRN Reason: Hypoglycemia Protocol Glucagon (Glucagen Diagnostic Kit) 1 mg IM STAT PRN; Protocol PRN Reason: Hypoglycemia Protocol Hydralazine HCl (Apresoline) 10 mg IVP Q6H PRN PRN Reason: Sore Throat Last Admin: 12/16/17 19:24 Dose: 10 mg Hydromorphone HCl (Dilaudid) 0.5 mg IVP Q4H PRN PRN Reason: Pain, severe (8-10) Last Admin: 12/17/17 10:27 Dose: 0.5 mg Piperacillin Sod/Tazobactam Sod (Zosyn 3.375 Gm Iv Premix) 3.375 gm in 50 mls @ 100 mls/hr IVPB Q6H FESTUS PRN Reason: Protocol Last Admin: 12/17/17 10:05 Dose: 100 mls/hr Sodium Chloride (Sodium Chloride 0.9%) 1,000 mls @ 100 mls/hr IV .Q10H FESTUS Last Admin: 12/17/17 10:04 Dose: 100 mls/hr Pantoprazole Sodium 80 mg/ (Sodium Chloride) 100 mls @ 10 mls/hr IV .Q10H FESTUS PRN Reason: 8 MG/HR Last Admin: 12/17/17 06:04 Dose: 10 mls/hr Dextrose (Dextrose 5% In Water 1000 Ml) 1,000 mls @ 0 mls/hr IV .Q0M PRN; Protocol; Per Protocol PRN Reason: Hypoglycemia Protocol Insulin Human Regular (Novolin R) 0 unit SC ACHS FESTUS PRN Reason: Protocol Last Admin: 12/17/17 08:41 Dose: Not Given - Labs Labs: 12/17/17 06:28 12/17/17 06:27 PT 11.6 SECONDS (9.7-12.2) 12/16/17 11:25 INR 1.1 12/16/17 11:25 Attending/Attestation - Attestation I have personally seen and examined this patient.: Yes I have fully participated in the care of the patient.: Yes I have reviewed all pertinent clinical information, including history, physical exam and plan: Yes Notes (Text): 12/17/17 11:48 I have seen and examined patient with GI fellow and medical administrative assistant. She is seen resting in bed comfortably, though continues to endorse epigastric abdominal pain requiring constant medication. She denies nausea, vomiting, fever/chills, bowel movements. Review of vitals from today shows tachycardia. COPD HTN History of breast cancer Duodenal carcinoid tumor s/p EMR yesterday complicated by perforation s/p endoclip placement - NPO - H/H stable, continue to monitor - Continue with PPI therapy - Continue with antibiotic therapy - Follow up surgical recommendations, can likely remove NGT - no clear clinical indication - Transaminitis noted, obtain viral hepatitis panel and continue to monitor LFTs - Obtain abdominal US
--- NOTE | 2017-12-17 09:21 | CP.PCM.PN ---
<Peewee [place] - Last Filed: 12/17/17 09:18> Subjective - Date & Time of Evaluation Date of Evaluation: 12/17/17 Time of Evaluation: 06:00 - Subjective Subjective: general Surgery Progress Note for Dr. Alatorre This 77F was seen and examined this AM at bedside. Yesterday nurse reports the patinet refused NGT. One was placed this AM during morning rounds. She reports that her pain is improving. She denies any flatus or BM. She deneis any chest pain or SOB. Objective - Vital Signs/Intake and Output Vital Signs (last 24 hours): Temp Pulse Resp BP Pulse Ox 99 F 102 H 21 109/65 96 12/17/17 08:00 12/17/17 09:00 12/17/17 09:00 12/17/17 09:00 12/17/17 09:00 Intake and Output: 12/17/17 12/17/17 06:59 18:59 Intake Total 1320 220 Output Total 500 Balance 820 220 - Medications Medications: Current Medications Albuterol/Ipratropium (Duoneb 3 Mg/0.5 Mg (3 Ml) Ud) 3 ml INH RQ4 PRN PRN Reason: Shortness of Breath Last Admin: 12/16/17 14:24 Dose: 3 ml Dextrose (Dextrose 50% Inj) 0 ml IV STAT PRN; Protocol PRN Reason: Hypoglycemia Protocol Dextrose (Glutose 15) 15 gm PO ONCE PRN; Protocol PRN Reason: Hypoglycemia Protocol Glucagon (Glucagen Diagnostic Kit) 1 mg IM STAT PRN; Protocol PRN Reason: Hypoglycemia Protocol Hydralazine HCl (Apresoline) 10 mg IVP Q6H PRN PRN Reason: Sore Throat Last Admin: 12/16/17 19:24 Dose: 10 mg Hydromorphone HCl (Dilaudid) 1 mg IVP Q4H PRN PRN Reason: Pain, severe (8-10) Last Admin: 12/17/17 04:50 Dose: 1 mg Piperacillin Sod/Tazobactam Sod (Zosyn 3.375 Gm Iv Premix) 3.375 gm in 50 mls @ 100 mls/hr IVPB Q6H FESTUS PRN Reason: Protocol Last Admin: 12/17/17 03:03 Dose: 100 mls/hr Sodium Chloride (Sodium Chloride 0.9%) 1,000 mls @ 100 mls/hr IV .Q10H FESTUS Last Admin: 12/17/17 06:03 Dose: Not Given Pantoprazole Sodium 80 mg/ (Sodium Chloride) 100 mls @ 10 mls/hr IV .Q10H FESTUS PRN Reason: 8 MG/HR Last Admin: 12/17/17 06:04 Dose: 10 mls/hr Nicardipine HCl 25 mg/ Sodium (Chloride) 250 mls @ 25 mls/hr IV .Q10H FESTUS; 2.5 MG/HR PRN Reason: Protocol Last Admin: 12/17/17 07:02 Dose: Not Given Dextrose (Dextrose 5% In Water 1000 Ml) 1,000 mls @ 0 mls/hr IV .Q0M PRN; Protocol; Per Protocol PRN Reason: Hypoglycemia Protocol Insulin Human Regular (Novolin R) 0 unit SC ACHS FESTUS PRN Reason: Protocol Last Admin: 12/17/17 08:41 Dose: Not Given - Labs Labs: 12/17/17 06:28 12/17/17 06:27 PT 11.6 SECONDS (9.7-12.2) 12/16/17 11:25 INR 1.1 12/16/17 11:25 - Constitutional Appears: Non-toxic, No Acute Distress - Head Exam Head Exam: ATRAUMATIC, NORMOCEPHALIC - Eye Exam Eye Exam: EOMI - ENT Exam ENT Exam: Mucous Membranes Moist - Cardiovascular Exam Cardiovascular Exam: +S1, +S2 - GI/Abdominal Exam GI & Abdominal Exam: Soft. 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 Celi [place] PGY2 <Deion Alatorre - Last Filed: 12/21/17 00:18> Objective - Vital Signs/Intake and Output Vital Signs (last 24 hours): Temp Pulse Resp BP Pulse Ox 98.8 F 108 H 13 101/53 L 100 12/20/17 19:00 12/21/17 00:00 12/20/17 19:00 12/20/17 23:54 12/21/17 00:00 Intake and Output: 12/20/17 12/21/17 18:59 06:59 Intake Total 2356.4 1758.2 Output Total 515 65 Balance 1841.4 1693.2 - Medications Medications: Current Medications Acetaminophen (Tylenol 650 Mg Supp) 650 mg TN Q4 PRN PRN Reason: Fever >100.4 F Albuterol/Ipratropium (Duoneb 3 Mg/0.5 Mg (3 Ml) Ud) 3 ml INH RQ4 PRN PRN Reason: Shortness of Breath Last Admin: 12/18/17 20:12 Dose: 3 ml Dextrose (Dextrose 50% Inj) 0 ml IV STAT PRN; Protocol PRN Reason: Hypoglycemia Protocol Dextrose (Glutose 15) 15 gm PO ONCE PRN; Protocol PRN Reason: Hypoglycemia Protocol Glucagon (Glucagen Diagnostic Kit) 1 mg IM STAT PRN; Protocol PRN Reason: Hypoglycemia Protocol Heparin Sodium (Porcine) (Heparin) 5,000 units SC Q8 FESTUS Last Admin: 12/20/17 14:30 Dose: Not Given Hydromorphone HCl (Dilaudid) 0.5 mg IVP Q4H PRN PRN Reason: Pain, severe (8-10) Last Admin: 12/18/17 13:04 Dose: 0.5 mg Pantoprazole Sodium 80 mg/ (Sodium Chloride) 100 mls @ 10 mls/hr IV .Q10H FESTUS PRN Reason: 8 MG/HR Last Admin: 12/20/17 17:49 Dose: 10 mls/hr Dextrose (Dextrose 5% In Water 1000 Ml) 1,000 mls @ 0 mls/hr IV .Q0M PRN; Protocol; Per Protocol PRN Reason: Hypoglycemia Protocol Meropenem 500 mg/ Sodium (Chloride) 100 mls @ 100 mls/hr IVPB Q12 FESTUS PRN Reason: Protocol Last Admin: 12/20/17 21:02 Dose: 100 mls/hr BUPIVACAINE 0.125%/0.9% NACL (Bupivacaine-Ns 0.125% On-Q Intranet Developer) 600 mls @ 4 mls/ hr IJ ONCE ONE Stop: 12/24/17 21:59 Last Admin: 12/18/17 18:20 Dose: Not Given Sodium Bicarbonate 150 meq/ (Dextrose) 1,150 mls @ 80 mls/hr IV .[id number] FESTUS Last Admin: 12/20/17 18:03 Dose: 80 mls/hr Fentanyl Citrate 2,500 mcg/ (Sodium Chloride) 250 mls @ 21.31 mls/hr IV .[id number] FESTUS; 2 MCG/KG/HR PRN Reason: Protocol Last Admin: 12/20/17 20:59 Dose: 1 mcg/kg/hr, 10.65 mls/hr Multivitamins/Vitamin C 10 ml/ (Amino Acids) 1,010 mls @ 84 mls/hr IV .Q12H2M FESTUS Stop: 12/21/17 06:00 Last Admin: 12/20/17 17:50 Dose: 84 mls/hr Amino Acids (Clinimix 4.25/5 % "E" (1000 Ml)) 1,000 mls @ 84 mls/hr IV .[id number] ONE Stop: 12/21/17 18:24 Micafungin Sodium 100 mg/ (Sodium Chloride) 100 mls @ 100 mls/hr IV Q24H FESTUS PRN Reason: Protocol Linezolid (Zyvox 600mg/300ml D5w) 600 mg in 300 mls @ 200 mls/hr IVPB Q12 FESTUS PRN Reason: Protocol Last Admin: 12/20/17 21:00 Dose: 200 mls/hr Insulin Human Regular (Novolin R) 0 unit SC Q6 EFSTUS PRN Reason: Protocol Last Admin: 12/20/17 18:07 Dose: Not Given Ondansetron HCl (Zofran Inj) 4 mg IVP Q4 PRN PRN Reason: Nausea/Vomiting - Labs Labs: 12/20/17 07:46 12/20/17 06:30 PT 15.9 SECONDS (9.7-12.2) H 12/18/17 12:39 INR 1.5 12/18/17 12:39 APTT 40 SECONDS (21-34) H 12/18/17 12:39 Attending/Attestation - Attestation I have personally seen and examined this patient.: Yes I have fully participated in the care of the patient.: Yes I have reviewed all pertinent clinical information, including history, physical exam and plan: Yes Notes (Text): Pt was seen and examined at bedside Agree with above note and assessment Pt with Duodenal perforation s/o endoscopic clip placement At present pt is stable with no abdominal pain and mild tenderness Labs and radiology reviewed Plan: Upper GI series tomorrow NPO, IVF IV antibiotics C/w current ICU management Plan d.w pt in detail Risk and benefit explained in detail.
[2017-12-17] MEDS: HYDROmorphone 0.5 mg/0.5 ml ISec IVP PRN ×2 (10:27→20:12)
--- NOTE | 2017-12-17 11:37 | RAD ---
HISTORY: NGT placement COMPARISON: Comparison chest wall 09/25/2015 FINDINGS: In situ NGT, the tip of which is not included on this film though distal aspect does lie well below EG junction at Poor to the right of midline. LUNGS: Mild bibasilar atelectasis left greater than right. Developing lower lobe infiltrate could be excluded followup radiographs. PLEURA: No significant pleural effusion identified, no pneumothorax apparent. CARDIOVASCULAR: Cardiomegaly. OSSEOUS STRUCTURES: No significant abnormalities. VISUALIZED UPPER ABDOMEN: Normal. OTHER FINDINGS: None. IMPRESSION: Mild bibasilar atelectasis left greater than right. Developing lower lobe infiltrate could be excluded followup radiographs.
--- NOTE | 2017-12-17 12:05 | CP.CCUPN ---
Addendum entered and electronically signed by Estefania Veliz DO 12/17/17 13:55 : Renal: A: Acute Renal Failure - 1.4--> 2.3 - Renal US to rule out obstruction - Urine electrolytes Original Note: <Estefania Veliz - Last Filed: 12/17/17 12:02> CCU Subjective - Physician Review Subjective (Free Text): Patient seen and examined at bedside. Patient reports she has not passed flatus or had a BM. Her pain is well controlled. CCU Objective - Vital Signs / Intake & Output Vital Signs (Last 4 hours): Vital Signs Pulse Resp BP Pulse Ox 12/17/17 09:00 102 H 21 109/65 96 Intake and Output (Last 8hrs): Intake & Output 12/16/17 12/17/17 12/17/17 22:59 06:59 14:59 Intake Total 880 880 220 Output Total 500 Balance 880 380 220 Weight 225 lb Intake: Intake, IV Amount 880 880 220 Left Hand 400 Right Antecubital 80 80 20 Rt AC 400 800 200 Oral 0 0 0 Output: Urine 500 Urine, Voided 500 Other: # Voids Urine, Voided 0 1 # Bowel Movements 0 - Physical Exam Head: Positive for: Atraumatic, Normocephalic, Ecchymosis Extroacular Muscles: Positive for: EOMI Conjunctiva: Positive for: Normal Mouth: Positive for: Other (NGT in place with 0 output ) Respiratory/Chest: Positive for: Clear to Auscultation. Negative for: Decreased Breath Sounds Cardiovascular: Positive for: Regular Rate and Rhythm Abdomen: Positive for: Tenderness, Normal Bowel Sounds. Negative for: Distention Upper Extremity: Positive for: Normal Inspection, NORMAL PULSES, Neurovascularly Intact, Capillary Refill < 2s Lower Extremity: Positive for: Normal Inspection, NORMAL PULSES, Neurovascularly Intact, Capillary Refill < 2 s Neurological: Positive for: GCS=15, CN II-XII Intact Skin: Positive for: Warm, Dry, Normal Color Psychiatric: Positive for: Alert, Oriented x 3, Normal Insight, Normal Concentration - Medications Active Medications: Active Medications Generic Name Dose Route Start Last Admin Trade Name Freq PRN Reason Stop Dose Admin Albuterol/Ipratropium 3 ml 12/16/17 12:03 12/16/17 14:24 Duoneb 3 Mg/0.5 Mg (3 Ml) Ud INH 3 ml RQ4 PRN Administration Shortness of Breath Dextrose 0 ml 12/16/17 12:08 Dextrose 50% Inj IV STAT PRN Hypoglycemia Protocol Protocol Dextrose 15 gm 12/16/17 12:08 Glutose 15 PO ONCE PRN Hypoglycemia Protocol Protocol Glucagon 1 mg 12/16/17 12:08 Glucagen Diagnostic Kit IM STAT PRN Hypoglycemia Protocol Protocol Hydralazine HCl 10 mg 12/16/17 15:00 12/16/17 19:24 Apresoline IVP 10 mg Q6H PRN Administration Sore Throat Hydromorphone HCl 0.5 mg 12/17/17 09:53 12/17/17 10:27 Dilaudid IVP 0.5 mg Q4H PRN Administration Pain, severe (8-10) Piperacillin Sod/Tazobactam Sod 3.375 gm in 50 mls @ 100 mls/hr 12/16/17 10: 00 12/17/17 10:05 Zosyn 3.375 Gm Iv Premix IVPB 100 mls/hr Q6H FESTUS Administration Protocol Sodium Chloride 1,000 mls @ 100 mls/hr 12/16/17 09:30 12/17/17 10:04 Sodium Chloride 0.9% IV 100 mls/hr .Q10H FESTUS Administration Pantoprazole Sodium 80 mg/ 100 mls @ 10 mls/hr 12/16/17 09:35 12/17/17 06:04 Sodium Chloride IV 10 mls/hr .Q10H FESTUS Administration 8 MG/HR Dextrose 1,000 mls @ 0 mls/hr 12/16/17 12:08 Dextrose 5% In Water 1000 Ml IV .Q0M PRN Hypoglycemia Protocol Protocol Per Protocol Insulin Human Regular 0 unit 12/16/17 16:30 12/17/17 08:41 Novolin R SC Not Given ACHS FESTUS Protocol - Patient Studies Lab Studies: Lab Studies 12/17/17 12/17/17 12/17/17 Range/Units 07:32 06:28 06:27 WBC 8.3 (4.8-10.8) K/uL RBC 5.12 (3.80-5.20) Mil/uL Hgb 15.0 (11.0-16.0) g/dL Hct 45.1 (34.0-47.0) % MCV 88.2 (81.0-99.0) fL MCH 29.2 (27.0-31.0) pg MCHC 33.2 (33.0-37.0) g/dL RDW 14.0 (11.5-14.5) % Plt Count 176 (130-400) K/uL MPV 11.0 (7.2-11.7) fL Neut % (Auto) 86.5 H (50.0-75.0) % Lymph % (Auto) 5.2 L (20.0-40.0) % Antelope % (Auto) 8.2 (0.0-10.0) % Eos % (Auto) 0.0 (0.0-4.0) % Baso % (Auto) 0.1 (0.0-2.0) % Neut # (Auto) 7.2 H (1.8-7.0) K/uL Lymph # (Auto) 0.4 L (1.0-4.3) K/uL Antelope # (Auto) 0.7 (0.0-0.8) K/uL Eos # (Auto) 0.0 (0.0-0.7) K/uL Baso # (Auto) 0.0 (0.0-0.2) K/uL Neutrophils % (Manual) 75 (50-75) % Band Neutrophils % 10 H (0-2) % Lymphocytes % (Manual) 6 L (20-40) % Monocytes % (Manual) 9 (0-10) % Platelet Estimate Normal (NORMAL) Sodium 140 (132-148) mmol/L Potassium 4.5 (3.6-5.2) mmol/L Chloride 104 (98-107) mmol/L Carbon Dioxide 20 L (22-30) mmol/L Anion Gap 21 H (10-20) BUN 26 H (7-17) mg/dL Creatinine 1.4 H (0.7-1.2) mg/dL Est GFR ( Amer) 44 Est GFR (Non-Af Amer) 36 POC Glucose (mg/dL) 154 H (65-110) mg/dL Random Glucose 143 H (65-105) mg/dL Hemoglobin A1c (4.2-6.5) % Calcium 7.4 L (8.6-10.4) mg/dl Phosphorus 3.4 (2.5-4.5) mg/dL Magnesium 1.7 (1.6-2.3) mg/dL Total Bilirubin 1.5 H (0.2-1.3) mg/dL AST 129 H D (14-36) U/L ALT 155 H D (9-52) U/L Alkaline Phosphatase 75 (38-126) U/L Total Protein 6.6 (6.3-8.3) g/dL Albumin 3.9 (3.5-5.0) g/dL Globulin 2.8 (2.2-3.9) gm/dL Albumin/Globulin Ratio 1.4 (1.0-2.1) Triglycerides (0-149) mg/dL Cholesterol (0-199) mg/dL LDL Cholesterol Direct (0-129) mg/dL HDL Cholesterol (30-70) mg/dL 12/16/17 12/16/17 12/16/17 Range/Units 21:05 21:03 16:29 WBC 12.1 H (4.8-10.8) K/uL RBC 4.86 (3.80-5.20) Mil/uL Hgb 13.7 (11.0-16.0) g/dL Hct 42.6 (34.0-47.0) % MCV 87.8 (81.0-99.0) fL MCH 28.1 (27.0-31.0) pg MCHC 32.0 L (33.0-37.0) g/dL RDW 13.9 (11.5-14.5) % Plt Count 153 (130-400) K/uL MPV 10.2 (7.2-11.7) fL Neut % (Auto) (50.0-75.0) % Lymph % (Auto) (20.0-40.0) % Antelope % (Auto) (0.0-10.0) % Eos % (Auto) (0.0-4.0) % Baso % (Auto) (0.0-2.0) % Neut # (Auto) (1.8-7.0) K/uL Lymph # (Auto) (1.0-4.3) K/uL Antelope # (Auto) (0.0-0.8) K/uL Eos # (Auto) (0.0-0.7) K/uL Baso # (Auto) (0.0-0.2) K/uL Neutrophils % (Manual) (50-75) % Band Neutrophils % (0-2) % Lymphocytes % (Manual) (20-40) % Monocytes % (Manual) (0-10) % Platelet Estimate (NORMAL) Sodium (132-148) mmol/L Potassium (3.6-5.2) mmol/L Chloride (98-107) mmol/L Carbon Dioxide (22-30) mmol/L Anion Gap (10-20) BUN (7-17) mg/dL Creatinine (0.7-1.2) mg/dL Est GFR ( Amer) Est GFR (Non-Af Amer) POC Glucose (mg/dL) 129 H 136 H (65-110) mg/dL Random Glucose (65-105) mg/dL Hemoglobin A1c (4.2-6.5) % Calcium (8.6-10.4) mg/dl Phosphorus (2.5-4.5) mg/dL Magnesium (1.6-2.3) mg/dL Total Bilirubin (0.2-1.3) mg/dL AST (14-36) U/L ALT (9-52) U/L Alkaline Phosphatase (38-126) U/L Total Protein (6.3-8.3) g/dL Albumin (3.5-5.0) g/dL Globulin (2.2-3.9) gm/dL Albumin/Globulin Ratio (1.0-2.1) Triglycerides (0-149) mg/dL Cholesterol (0-199) mg/dL LDL Cholesterol Direct (0-129) mg/dL HDL Cholesterol (30-70) mg/dL 12/16/17 12/16/17 12/16/17 Range/Units 15:34 15:34 15:34 WBC 10.2 (4.8-10.8) K/uL RBC 4.55 (3.80-5.20) Mil/uL Hgb 13.1 (11.0-16.0) g/dL Hct 39.9 (34.0-47.0) % MCV 87.8 (81.0-99.0) fL MCH 28.9 (27.0-31.0) pg MCHC 32.9 L (33.0-37.0) g/dL RDW 14.0 (11.5-14.5) % Plt Count 147 (130-400) K/uL MPV 10.2 (7.2-11.7) fL Neut % (Auto) 84.8 H (50.0-75.0) % Lymph % (Auto) 7.3 L (20.0-40.0) % Antelope % (Auto) 7.5 (0.0-10.0) % Eos % (Auto) 0.1 (0.0-4.0) % Baso % (Auto) 0.3 (0.0-2.0) % Neut # (Auto) 8.6 H (1.8-7.0) K/uL Lymph # (Auto) 0.7 L (1.0-4.3) K/uL Antelope # (Auto) 0.8 (0.0-0.8) K/uL Eos # (Auto) 0.0 (0.0-0.7) K/uL Baso # (Auto) 0.0 (0.0-0.2) K/uL Neutrophils % (Manual) 83 H (50-75) % Band Neutrophils % (0-2) % Lymphocytes % (Manual) 11 L (20-40) % Monocytes % (Manual) 6 (0-10) % Platelet Estimate Normal (NORMAL) Sodium (132-148) mmol/L Potassium (3.6-5.2) mmol/L Chloride (98-107) mmol/L Carbon Dioxide (22-30) mmol/L Anion Gap (10-20) BUN (7-17) mg/dL Creatinine (0.7-1.2) mg/dL Est GFR ( Amer) Est GFR (Non-Af Amer) POC Glucose (mg/dL) (65-110) mg/dL Random Glucose (65-105) mg/dL Hemoglobin A1c 5.9 (4.2-6.5) % Calcium (8.6-10.4) mg/dl Phosphorus (2.5-4.5) mg/dL Magnesium (1.6-2.3) mg/dL Total Bilirubin (0.2-1.3) mg/dL AST (14-36) U/L ALT (9-52) U/L Alkaline Phosphatase (38-126) U/L Total Protein (6.3-8.3) g/dL Albumin (3.5-5.0) g/dL Globulin (2.2-3.9) gm/dL Albumin/Globulin Ratio (1.0-2.1) Triglycerides 78 (0-149) mg/dL Cholesterol 183 (0-199) mg/dL LDL Cholesterol Direct 114 (0-129) mg/dL HDL Cholesterol 53 (30-70) mg/dL Laboratory Results - last 24 hr 12/16/17 12/16/17 12/16/17 15:34 15:34 15:34 WBC 10.2 RBC 4.55 Hgb 13.1 Hct 39.9 MCV 87.8 MCH 28.9 MCHC 32.9 L RDW 14.0 Plt Count 147 MPV 10.2 Neut % (Auto) 84.8 H Lymph % (Auto) 7.3 L Antelope % (Auto) 7.5 Eos % (Auto) 0.1 Baso % (Auto) 0.3 Neut # (Auto) 8.6 H Lymph # (Auto) 0.7 L Antelope # (Auto) 0.8 Eos # (Auto) 0.0 Baso # (Auto) 0.0 Neutrophils % (Manual) 83 H Band Neutrophils % Lymphocytes % (Manual) 11 L Monocytes % (Manual) 6 Platelet Estimate Normal Sodium Potassium Chloride Carbon Dioxide Anion Gap BUN Creatinine Est GFR ( Amer) Est GFR (Non-Af Amer) POC Glucose (mg/dL) Random Glucose Hemoglobin A1c 5.9 Calcium Phosphorus Magnesium Total Bilirubin AST ALT Alkaline Phosphatase Total Protein Albumin Globulin Albumin/Globulin Ratio Triglycerides 78 Cholesterol 183 LDL Cholesterol Direct 114 HDL Cholesterol 53 12/16/17 12/16/17 12/16/17 16:29 21:03 21:05 WBC 12.1 H RBC 4.86 Hgb 13.7 Hct 42.6 MCV 87.8 MCH 28.1 MCHC 32.0 L RDW 13.9 Plt Count 153 MPV 10.2 Neut % (Auto) Lymph % (Auto) Antelope % (Auto) Eos % (Auto) Baso % (Auto) Neut # (Auto) Lymph # (Auto) Antelope # (Auto) Eos # (Auto) Baso # (Auto) Neutrophils % (Manual) Band Neutrophils % Lymphocytes % (Manual) Monocytes % (Manual) Platelet Estimate Sodium Potassium Chloride Carbon Dioxide Anion Gap BUN Creatinine Est GFR ( Amer) Est GFR (Non-Af Amer) POC Glucose (mg/dL) 136 H 129 H Random Glucose Hemoglobin A1c Calcium Phosphorus Magnesium Total Bilirubin AST ALT Alkaline Phosphatase Total Protein Albumin Globulin Albumin/Globulin Ratio Triglycerides Cholesterol LDL Cholesterol Direct HDL Cholesterol 12/17/17 12/17/17 12/17/17 06:27 06:28 07:32 WBC 8.3 RBC 5.12 Hgb 15.0 Hct 45.1 MCV 88.2 MCH 29.2 MCHC 33.2 RDW 14.0 Plt Count 176 MPV 11.0 Neut % (Auto) 86.5 H Lymph % (Auto) 5.2 L Antelope % (Auto) 8.2 Eos % (Auto) 0.0 Baso % (Auto) 0.1 Neut # (Auto) 7.2 H Lymph # (Auto) 0.4 L Antelope # (Auto) 0.7 Eos # (Auto) 0.0 Baso # (Auto) 0.0 Neutrophils % (Manual) 75 Band Neutrophils % 10 H Lymphocytes % (Manual) 6 L Monocytes % (Manual) 9 Platelet Estimate Normal Sodium 140 Potassium 4.5 Chloride 104 Carbon Dioxide 20 L Anion Gap 21 H BUN 26 H Creatinine 1.4 H Est GFR ( Amer) 44 Est GFR (Non-Af Amer) 36 POC Glucose (mg/dL) 154 H Random Glucose 143 H Hemoglobin A1c Calcium 7.4 L Phosphorus 3.4 Magnesium 1.7 Total Bilirubin 1.5 H AST 129 H D ALT 155 H D Alkaline Phosphatase 75 Total Protein 6.6 Albumin 3.9 Globulin 2.8 Albumin/Globulin Ratio 1.4 Triglycerides Cholesterol LDL Cholesterol Direct HDL Cholesterol Fingerstick Blood Sugar Results: 136 Critical Care Progress Note - Nutrition Nutrition: Nutrition Category Date Time Status NPO Diet [DIET] Diets 12/16/17 Breakfast Active Assessment/Plan - Assessment and Plan (Free Text) Assessment: This is a 77yo female with history of hypertension, COPD, breast cancer s/p lumpectomy that presented to same day 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 During the procedure, patient experienced a significant amount of bleeding which was treated with a combination of clipping , electrocautery and epinephrine. Bleeding was significantly reduced however patient was subsequently admitted to ICU for close observation. She had underwent EGD/Colonoscopy on 12/05/17 due to worsening reflux symptoms with progressive substernal burning that started approximately 2 months prior. At that time, EGD/Colonsocopy was significant for duodenal nodule that was biopsied and revealed well differentiated neuroendocrine tumor. 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 Alatorre - Previous hemorrhage - stabilized with a combination of clipping, electrocautery and epinephrine. - Started on PPI drip, IVF - Zosyn as per GI - Plan for Upper GI series 12/18/17 - Will continue to monitor A: Transaminitis, Elevated T. Bili - Viral panel ordered - Abominal US A: IGT - HgA1c 5.9 ID: A: Bandemia - Afebrile, vitals stable, no leukocytosis, no source of infection - Procal, pending repeat labs Heme/ Onc: A: Hx breast cancer s/p lumpectomy Protonix - Protonix Drip - SCDs, VTE c/i post op / concern for bleeding DW Dr. Ferrera, Estefania Veliz DO, PGY-1 <Tom Ferrera - Last Filed: 12/17/17 14:15> CCU Objective - Vital Signs / Intake & Output Intake and Output (Last 8hrs): Intake & Output 12/16/17 12/17/17 12/17/17 22:59 06:59 14:59 Intake Total 880 880 220 Output Total 500 Balance 880 380 220 Weight 225 lb Intake: Intake, IV Amount 880 880 220 Left Hand 400 Right Antecubital 80 80 20 Rt AC 400 800 200 Oral 0 0 0 Output: Urine 500 Urine, Voided 500 Other: # Voids Urine, Voided 0 1 # Bowel Movements 0 - Medications Active Medications: Active Medications Generic Name Dose Route Start Last Admin Trade Name Freq PRN Reason Stop Dose Admin Albuterol/Ipratropium 3 ml 12/16/17 12:03 12/16/17 14:24 Duoneb 3 Mg/0.5 Mg (3 Ml) Ud INH 3 ml RQ4 PRN Administration Shortness of Breath Dextrose 0 ml 12/16/17 12:08 Dextrose 50% Inj IV STAT PRN Hypoglycemia Protocol Protocol Dextrose 15 gm 12/16/17 12:08 Glutose 15 PO ONCE PRN Hypoglycemia Protocol Protocol Glucagon 1 mg 12/16/17 12:08 Glucagen Diagnostic Kit IM STAT PRN Hypoglycemia Protocol Protocol Hydralazine HCl 10 mg 12/17/17 12:05 Apresoline IVP Q6H PRN Systolic Blood Pressure Hydromorphone HCl 0.5 mg 12/17/17 09:53 12/17/17 10:27 Dilaudid IVP 0.5 mg Q4H PRN Administration Pain, severe (8-10) Piperacillin Sod/Tazobactam Sod 3.375 gm in 50 mls @ 100 mls/hr 12/16/17 10: 00 12/17/17 10:05 Zosyn 3.375 Gm Iv Premix IVPB 100 mls/hr Q6H FESTUS Administration Protocol Sodium Chloride 1,000 mls @ 100 mls/hr 12/16/17 09:30 12/17/17 10:04 Sodium Chloride 0.9% IV 100 mls/hr .Q10H FESTUS Administration Pantoprazole Sodium 80 mg/ 100 mls @ 10 mls/hr 12/16/17 09:35 12/17/17 06:04 Sodium Chloride IV 10 mls/hr .Q10H FESTUS Administration 8 MG/HR Dextrose 1,000 mls @ 0 mls/hr 12/16/17 12:08 Dextrose 5% In Water 1000 Ml IV .Q0M PRN Hypoglycemia Protocol Protocol Per Protocol Insulin Human Regular 0 unit 12/16/17 16:30 12/17/17 08:41 Novolin R SC Not Given ACHS FESTUS Protocol - Patient Studies Lab Studies: Microbiology Studies 12/16/17 11:33 MRSA Culture (Admit) - Final Naris MRSA NOT DETECTED Lab Studies 12/17/17 12/17/17 12/17/17 Range/Units 12:37 12:37 12:37 WBC 7.5 (4.8-10.8) K/uL RBC 5.15 (3.80-5.20) Mil/uL Hgb 14.8 (11.0-16.0) g/dL Hct 45.2 (34.0-47.0) % MCV 87.8 (81.0-99.0) fL MCH 28.8 (27.0-31.0) pg MCHC 32.8 L (33.0-37.0) g/dL RDW 14.1 (11.5-14.5) % Plt Count 177 (130-400) K/uL MPV 10.9 (7.2-11.7) fL Neut % (Auto) 83.1 H (50.0-75.0) % Lymph % (Auto) 7.2 L (20.0-40.0) % Antelope % (Auto) 9.6 (0.0-10.0) % Eos % (Auto) 0.0 (0.0-4.0) % Baso % (Auto) 0.1 (0.0-2.0) % Neut # (Auto) 6.2 (1.8-7.0) K/uL Lymph # (Auto) 0.5 L (1.0-4.3) K/uL Antelope # (Auto) 0.7 (0.0-0.8) K/uL Eos # (Auto) 0.0 (0.0-0.7) K/uL Baso # (Auto) 0.0 (0.0-0.2) K/uL Neutrophils % (Manual) 40 L (50-75) % Band Neutrophils % 37 H* (0-2) % Lymphocytes % (Manual) 10 L (20-40) % Monocytes % (Manual) 12 H (0-10) % Basophils % (Manual) 1 (0-2) % Platelet Estimate Normal (NORMAL) Sodium 142 (132-148) mmol/L Potassium 4.7 (3.6-5.2) mmol/L Chloride 106 (98-107) mmol/L Carbon Dioxide 22 (22-30) mmol/L Anion Gap 19 (10-20) BUN 36 H (7-17) mg/dL Creatinine 2.3 H (0.7-1.2) mg/dL Est GFR ( Amer) 25 Est GFR (Non-Af Amer) 20 POC Glucose (mg/dL) (65-110) mg/dL Random Glucose 143 H (65-105) mg/dL Hemoglobin A1c (4.2-6.5) % Calcium 6.9 L (8.6-10.4) mg/dl Phosphorus 3.2 (2.5-4.5) mg/dL Magnesium 1.7 (1.6-2.3) mg/dL Total Bilirubin 1.6 H (0.2-1.3) mg/dL AST 103 H D (14-36) U/L ALT 126 H (9-52) U/L Alkaline Phosphatase 65 (38-126) U/L Total Protein 6.6 (6.3-8.3) g/dL Albumin 3.7 (3.5-5.0) g/dL Globulin 2.9 (2.2-3.9) gm/dL Albumin/Globulin Ratio 1.3 (1.0-2.1) Triglycerides (0-149) mg/dL Cholesterol (0-199) mg/dL LDL Cholesterol Direct (0-129) mg/dL HDL Cholesterol (30-70) mg/dL Hepatitis A IgM Ab Negative (NEGATIVE) Hep Bs Antigen Negative (NEGATIVE) Hep B Core IgM Ab Negative (NEGATIVE) Hepatitis C Antibody Negative (NEGATIVE) 12/17/17 12/17/17 12/17/17 Range/Units 11:55 07:32 06:28 WBC 8.3 (4.8-10.8) K/uL RBC 5.12 (3.80-5.20) Mil/uL Hgb 15.0 (11.0-16.0) g/dL Hct 45.1 (34.0-47.0) % MCV 88.2 (81.0-99.0) fL MCH 29.2 (27.0-31.0) pg MCHC 33.2 (33.0-37.0) g/dL RDW 14.0 (11.5-14.5) % Plt Count 176 (130-400) K/uL MPV 11.0 (7.2-11.7) fL Neut % (Auto) 86.5 H (50.0-75.0) % Lymph % (Auto) 5.2 L (20.0-40.0) % Antelope % (Auto) 8.2 (0.0-10.0) % Eos % (Auto) 0.0 (0.0-4.0) % Baso % (Auto) 0.1 (0.0-2.0) % Neut # (Auto) 7.2 H (1.8-7.0) K/uL Lymph # (Auto) 0.4 L (1.0-4.3) K/uL Antelope # (Auto) 0.7 (0.0-0.8) K/uL Eos # (Auto) 0.0 (0.0-0.7) K/uL Baso # (Auto) 0.0 (0.0-0.2) K/uL Neutrophils % (Manual) 75 (50-75) % Band Neutrophils % 10 H (0-2) % Lymphocytes % (Manual) 6 L (20-40) % Monocytes % (Manual) 9 (0-10) % Basophils % (Manual) (0-2) % Platelet Estimate Normal (NORMAL) Sodium (132-148) mmol/L Potassium (3.6-5.2) mmol/L Chloride (98-107) mmol/L Carbon Dioxide (22-30) mmol/L Anion Gap (10-20) BUN (7-17) mg/dL Creatinine (0.7-1.2) mg/dL Est GFR ( Amer) Est GFR (Non-Af Amer) POC Glucose (mg/dL) 157 H 154 H (65-110) mg/dL Random Glucose (65-105) mg/dL Hemoglobin A1c (4.2-6.5) % Calcium (8.6-10.4) mg/dl Phosphorus (2.5-4.5) mg/dL Magnesium (1.6-2.3) mg/dL Total Bilirubin (0.2-1.3) mg/dL AST (14-36) U/L ALT (9-52) U/L Alkaline Phosphatase (38-126) U/L Total Protein (6.3-8.3) g/dL Albumin (3.5-5.0) g/dL Globulin (2.2-3.9) gm/dL Albumin/Globulin Ratio (1.0-2.1) Triglycerides (0-149) mg/dL Cholesterol (0-199) mg/dL LDL Cholesterol Direct (0-129) mg/dL HDL Cholesterol (30-70) mg/dL Hepatitis A IgM Ab (NEGATIVE) Hep Bs Antigen (NEGATIVE) Hep B Core IgM Ab (NEGATIVE) Hepatitis C Antibody (NEGATIVE) 12/17/17 12/16/1718 Range/Units 06:27 21:05 21:03 WBC 12.1 H (4.8-10.8) K/uL RBC 4.86 (3.80-5.20) Mil/uL Hgb 13.7 (11.0-16.0) g/dL Hct 42.6 (34.0-47.0) % MCV 87.8 (81.0-99.0) fL MCH 28.1 (27.0-31.0) pg MCHC 32.0 L (33.0-37.0) g/dL RDW 13.9 (11.5-14.5) % Plt Count 153 (130-400) K/uL MPV 10.2 (7.2-11.7) fL Neut % (Auto) (50.0-75.0) % Lymph % (Auto) (20.0-40.0) % Antelope % (Auto) (0.0-10.0) % Eos % (Auto) (0.0-4.0) % Baso % (Auto) (0.0-2.0) % Neut # (Auto) (1.8-7.0) K/uL Lymph # (Auto) (1.0-4.3) K/uL Antelope # (Auto) (0.0-0.8) K/uL Eos # (Auto) (0.0-0.7) K/uL Baso # (Auto) (0.0-0.2) K/uL Neutrophils % (Manual) (50-75) % Band Neutrophils % (0-2) % Lymphocytes % (Manual) (20-40) % Monocytes % (Manual) (0-10) % Basophils % (Manual) (0-2) % Platelet Estimate (NORMAL) Sodium 140 (132-148) mmol/L Potassium 4.5 (3.6-5.2) mmol/L Chloride 104 (98-107) mmol/L Carbon Dioxide 20 L (22-30) mmol/L Anion Gap 21 H (10-20) BUN 26 H (7-17) mg/dL Creatinine 1.4 H (0.7-1.2) mg/dL Est GFR ( Amer) 44 Est GFR (Non-Af Amer) 36 POC Glucose (mg/dL) 129 H (65-110) mg/dL Random Glucose 143 H (65-105) mg/dL Hemoglobin A1c (4.2-6.5) % Calcium 7.4 L (8.6-10.4) mg/dl Phosphorus 3.4 (2.5-4.5) mg/dL Magnesium 1.7 (1.6-2.3) mg/dL Total Bilirubin 1.5 H (0.2-1.3) mg/dL AST 129 H D (14-36) U/L ALT 155 H D (9-52) U/L Alkaline Phosphatase 75 (38-126) U/L Total Protein 6.6 (6.3-8.3) g/dL Albumin 3.9 (3.5-5.0) g/dL Globulin 2.8 (2.2-3.9) gm/dL Albumin/Globulin Ratio 1.4 (1.0-2.1) Triglycerides (0-149) mg/dL Cholesterol (0-199) mg/dL LDL Cholesterol Direct (0-129) mg/dL HDL Cholesterol (30-70) mg/dL Hepatitis A IgM Ab (NEGATIVE) Hep Bs Antigen (NEGATIVE) Hep B Core IgM Ab (NEGATIVE) Hepatitis C Antibody (NEGATIVE) 12/16/17 12/16/17 12/16/17 Range/Units 16:29 15:34 15:34 WBC 10.2 (4.8-10.8) K/uL RBC 4.55 (3.80-5.20) Mil/uL Hgb 13.1 (11.0-16.0) g/dL Hct 39.9 (34.0-47.0) % MCV 87.8 (81.0-99.0) fL MCH 28.9 (27.0-31.0) pg MCHC 32.9 L (33.0-37.0) g/dL RDW 14.0 (11.5-14.5) % Plt Count 147 (130-400) K/uL MPV 10.2 (7.2-11.7) fL Neut % (Auto) 84.8 H (50.0-75.0) % Lymph % (Auto) 7.3 L (20.0-40.0) % Antelope % (Auto) 7.5 (0.0-10.0) % Eos % (Auto) 0.1 (0.0-4.0) % Baso % (Auto) 0.3 (0.0-2.0) % Neut # (Auto) 8.6 H (1.8-7.0) K/uL Lymph # (Auto) 0.7 L (1.0-4.3) K/uL Antelope # (Auto) 0.8 (0.0-0.8) K/uL Eos # (Auto) 0.0 (0.0-0.7) K/uL Baso # (Auto) 0.0 (0.0-0.2) K/uL Neutrophils % (Manual) 83 H (50-75) % Band Neutrophils % (0-2) % Lymphocytes % (Manual) 11 L (20-40) % Monocytes % (Manual) 6 (0-10) % Basophils % (Manual) (0-2) % Platelet Estimate Normal (NORMAL) Sodium (132-148) mmol/L Potassium (3.6-5.2) mmol/L Chloride (98-107) mmol/L Carbon Dioxide (22-30) mmol/L Anion Gap (10-20) BUN (7-17) mg/dL Creatinine (0.7-1.2) mg/dL Est GFR ( Amer) Est GFR (Non-Af Amer) POC Glucose (mg/dL) 136 H (65-110) mg/dL Random Glucose (65-105) mg/dL Hemoglobin A1c 5.9 (4.2-6.5) % Calcium (8.6-10.4) mg/dl Phosphorus (2.5-4.5) mg/dL Magnesium (1.6-2.3) mg/dL Total Bilirubin (0.2-1.3) mg/dL AST (14-36) U/L ALT (9-52) U/L Alkaline Phosphatase (38-126) U/L Total Protein (6.3-8.3) g/dL Albumin (3.5-5.0) g/dL Globulin (2.2-3.9) gm/dL Albumin/Globulin Ratio (1.0-2.1) Triglycerides (0-149) mg/dL Cholesterol (0-199) mg/dL LDL Cholesterol Direct (0-129) mg/dL HDL Cholesterol (30-70) mg/dL Hepatitis A IgM Ab (NEGATIVE) Hep Bs Antigen (NEGATIVE) Hep B Core IgM Ab (NEGATIVE) Hepatitis C Antibody (NEGATIVE) 12/16/17 Range/Units 15:34 WBC (4.8-10.8) K/uL RBC (3.80-5.20) Mil/uL Hgb (11.0-16.0) g/dL Hct (34.0-47.0) % MCV (81.0-99.0) fL MCH (27.0-31.0) pg MCHC (33.0-37.0) g/dL RDW (11.5-14.5) % Plt Count (130-400) K/uL MPV (7.2-11.7) fL Neut % (Auto) (50.0-75.0) % Lymph % (Auto) (20.0-40.0) % Antelope % (Auto) (0.0-10.0) % Eos % (Auto) (0.0-4.0) % Baso % (Auto) (0.0-2.0) % Neut # (Auto) (1.8-7.0) K/uL Lymph # (Auto) (1.0-4.3) K/uL Antelope # (Auto) (0.0-0.8) K/uL Eos # (Auto) (0.0-0.7) K/uL Baso # (Auto) (0.0-0.2) K/uL Neutrophils % (Manual) (50-75) % Band Neutrophils % (0-2) % Lymphocytes % (Manual) (20-40) % Monocytes % (Manual) (0-10) % Basophils % (Manual) (0-2) % Platelet Estimate (NORMAL) Sodium (132-148) mmol/L Potassium (3.6-5.2) mmol/L Chloride (98-107) mmol/L Carbon Dioxide (22-30) mmol/L Anion Gap (10-20) BUN (7-17) mg/dL Creatinine (0.7-1.2) mg/dL Est GFR ( Amer) Est GFR (Non-Af Amer) POC Glucose (mg/dL) (65-110) mg/dL Random Glucose (65-105) mg/dL Hemoglobin A1c (4.2-6.5) % Calcium (8.6-10.4) mg/dl Phosphorus (2.5-4.5) mg/dL Magnesium (1.6-2.3) mg/dL Total Bilirubin (0.2-1.3) mg/dL AST (14-36) U/L ALT (9-52) U/L Alkaline Phosphatase (38-126) U/L Total Protein (6.3-8.3) g/dL Albumin (3.5-5.0) g/dL Globulin (2.2-3.9) gm/dL Albumin/Globulin Ratio (1.0-2.1) Triglycerides 78 (0-149) mg/dL Cholesterol 183 (0-199) mg/dL LDL Cholesterol Direct 114 (0-129) mg/dL HDL Cholesterol 53 (30-70) mg/dL Hepatitis A IgM Ab (NEGATIVE) Hep Bs Antigen (NEGATIVE) Hep B Core IgM Ab (NEGATIVE) Hepatitis C Antibody (NEGATIVE) Laboratory Results - last 24 hr 12/16/17 12/16/17 12/16/17 15:34 15:34 15:34 WBC 10.2 RBC 4.55 Hgb 13.1 Hct 39.9 MCV 87.8 MCH 28.9 MCHC 32.9 L RDW 14.0 Plt Count 147 MPV 10.2 Neut % (Auto) 84.8 H Lymph % (Auto) 7.3 L Antelope % (Auto) 7.5 Eos % (Auto) 0.1 Baso % (Auto) 0.3 Neut # (Auto) 8.6 H Lymph # (Auto) 0.7 L Antelope # (Auto) 0.8 Eos # (Auto) 0.0 Baso # (Auto) 0.0 Neutrophils % (Manual) 83 H Band Neutrophils % Lymphocytes % (Manual) 11 L Monocytes % (Manual) 6 Basophils % (Manual) Platelet Estimate Normal Sodium Potassium Chloride Carbon Dioxide Anion Gap BUN Creatinine Est GFR ( Amer) Est GFR (Non-Af Amer) POC Glucose (mg/dL) Random Glucose Hemoglobin A1c 5.9 Calcium Phosphorus Magnesium Total Bilirubin AST ALT Alkaline Phosphatase Total Protein Albumin Globulin Albumin/Globulin Ratio Triglycerides 78 Cholesterol 183 LDL Cholesterol Direct 114 HDL Cholesterol 53 Hepatitis A IgM Ab Hep Bs Antigen Hep B Core IgM Ab Hepatitis C Antibody 12/16/17 12/16/17 12/16/17 16:29 21:03 21:05 WBC 12.1 H RBC 4.86 Hgb 13.7 Hct 42.6 MCV 87.8 MCH 28.1 MCHC 32.0 L RDW 13.9 Plt Count 153 MPV 10.2 Neut % (Auto) Lymph % (Auto) Antelope % (Auto) Eos % (Auto) Baso % (Auto) Neut # (Auto) Lymph # (Auto) Antelope # (Auto) Eos # (Auto) Baso # (Auto) Neutrophils % (Manual) Band Neutrophils % Lymphocytes % (Manual) Monocytes % (Manual) Basophils % (Manual) Platelet Estimate Sodium Potassium Chloride Carbon Dioxide Anion Gap BUN Creatinine Est GFR ( Amer) Est GFR (Non-Af Amer) POC Glucose (mg/dL) 136 H 129 H Random Glucose Hemoglobin A1c Calcium Phosphorus Magnesium Total Bilirubin AST ALT Alkaline Phosphatase Total Protein Albumin Globulin Albumin/Globulin Ratio Triglycerides Cholesterol LDL Cholesterol Direct HDL Cholesterol Hepatitis A IgM Ab Hep Bs Antigen Hep B Core IgM Ab Hepatitis C Antibody 12/17/17 12/17/17 12/17/17 06:27 06:28 07:32 WBC 8.3 RBC 5.12 Hgb 15.0 Hct 45.1 MCV 88.2 MCH 29.2 MCHC 33.2 RDW 14.0 Plt Count 176 MPV 11.0 Neut % (Auto) 86.5 H Lymph % (Auto) 5.2 L Antelope % (Auto) 8.2 Eos % (Auto) 0.0 Baso % (Auto) 0.1 Neut # (Auto) 7.2 H Lymph # (Auto) 0.4 L Antelope # (Auto) 0.7 Eos # (Auto) 0.0 Baso # (Auto) 0.0 Neutrophils % (Manual) 75 Band Neutrophils % 10 H Lymphocytes % (Manual) 6 L Monocytes % (Manual) 9 Basophils % (Manual) Platelet Estimate Normal Sodium 140 Potassium 4.5 Chloride 104 Carbon Dioxide 20 L Anion Gap 21 H BUN 26 H Creatinine 1.4 H Est GFR ( Amer) 44 Est GFR (Non-Af Amer) 36 POC Glucose (mg/dL) 154 H Random Glucose 143 H Hemoglobin A1c Calcium 7.4 L Phosphorus 3.4 Magnesium 1.7 Total Bilirubin 1.5 H AST 129 H D ALT 155 H D Alkaline Phosphatase 75 Total Protein 6.6 Albumin 3.9 Globulin 2.8 Albumin/Globulin Ratio 1.4 Triglycerides Cholesterol LDL Cholesterol Direct HDL Cholesterol Hepatitis A IgM Ab Hep Bs Antigen Hep B Core IgM Ab Hepatitis C Antibody 12/17/17 12/17/17 12/17/17 11:55 12:37 12:37 WBC 7.5 RBC 5.15 Hgb 14.8 Hct 45.2 MCV 87.8 MCH 28.8 MCHC 32.8 L RDW 14.1 Plt Count 177 MPV 10.9 Neut % (Auto) 83.1 H Lymph % (Auto) 7.2 L Antelope % (Auto) 9.6 Eos % (Auto) 0.0 Baso % (Auto) 0.1 Neut # (Auto) 6.2 Lymph # (Auto) 0.5 L Antelope # (Auto) 0.7 Eos # (Auto) 0.0 Baso # (Auto) 0.0 Neutrophils % (Manual) 40 L Band Neutrophils % 37 H* Lymphocytes % (Manual) 10 L Monocytes % (Manual) 12 H Basophils % (Manual) 1 Platelet Estimate Normal Sodium 142 Potassium 4.7 Chloride 106 Carbon Dioxide 22 Anion Gap 19 BUN 36 H Creatinine 2.3 H Est GFR ( Amer) 25 Est GFR (Non-Af Amer) 20 POC Glucose (mg/dL) 157 H Random Glucose 143 H Hemoglobin A1c Calcium 6.9 L Phosphorus 3.2 Magnesium 1.7 Total Bilirubin 1.6 H AST 103 H D ALT 126 H Alkaline Phosphatase 65 Total Protein 6.6 Albumin 3.7 Globulin 2.9 Albumin/Globulin Ratio 1.3 Triglycerides Cholesterol LDL Cholesterol Direct HDL Cholesterol Hepatitis A IgM Ab Hep Bs Antigen Hep B Core IgM Ab Hepatitis C Antibody 12/17/17 12:37 WBC RBC Hgb Hct MCV MCH MCHC RDW Plt Count MPV Neut % (Auto) Lymph % (Auto) Antelope % (Auto) Eos % (Auto) Baso % (Auto) Neut # (Auto) Lymph # (Auto) Antelope # (Auto) Eos # (Auto) Baso # (Auto) Neutrophils % (Manual) Band Neutrophils % Lymphocytes % (Manual) Monocytes % (Manual) Basophils % (Manual) Platelet Estimate Sodium Potassium Chloride Carbon Dioxide Anion Gap BUN Creatinine Est GFR ( Amer) Est GFR (Non-Af Amer) POC Glucose (mg/dL) Random Glucose Hemoglobin A1c Calcium Phosphorus Magnesium Total Bilirubin AST ALT Alkaline Phosphatase Total Protein Albumin Globulin Albumin/Globulin Ratio Triglycerides Cholesterol LDL Cholesterol Direct HDL Cholesterol Hepatitis A IgM Ab Negative Hep Bs Antigen Negative Hep B Core IgM Ab Negative Hepatitis C Antibody Negative Critical Care Progress Note - Nutrition Nutrition: Nutrition Category Date Time Status NPO Diet [DIET] Diets 12/16/17 Breakfast Active Attending/Attestation - Attestation I have personally seen and examined this patient.: Yes I have fully participated in the care of the patient.: Yes I have reviewed all pertinent clinical information: Yes Notes (Text): 12/17/17 14:10 Today: Sunday, December 17, 2017 The Patient was seen and examined at the bedside, Medical records reviewed, and management issues were discussed and formulated with the house staff. I have reviewed all the relevant clinical, laboratory, hemodynamic, radiographic data and medications Events reviewed Patient admitted for post operative care Pain better controlled Sepsis and acute kidney injury in progress Agree with above resident's assessment and treatment plans of care as transcribed in Dr. Veliz note.
[2017-12-17 12:45] LABS: BASO % 0.1 % (0.0-2.0); HEMOGLOBIN 14.8 g/dL (11.0-16.0); LYMPH # 0.5 K/uL (1.0-4.3); LYMPH % 7.2 % (20.0-40.0); MEAN CELL VOLUME 87.8 fL (81.0-99.0); MEAN CORPUSCULAR HEMOGLOBIN 28.8 pg (27.0-31.0); MEAN CORPUSCULAR HGB CONC 32.8 g/dL (33.0-37.0); MEAN PLATELET VOLUME 10.9 fL (7.2-11.7); MONO # 0.7 K/uL (0.0-0.8); MONO % 9.6 % (0.0-10.0); NEUT # 6.2 K/uL (1.8-7.0); NEUT % 83.1 % (50.0-75.0); PLATELET COUNT 177 K/uL (130-400); RBC 5.15 Mil/uL (3.80-5.20); RED CELL DISTRIBUTION WIDTH 14.1 % (11.5-14.5); WHITE BLOOD COUNT 7.5 K/uL (4.8-10.8)
[2017-12-17 13:07] LABS: BANDS 37 % (0-2); BASOPHIL 1 % (0-2); MONOCYTE 12 % (0-10); TOTAL CELLS COUNTED 100
[2017-12-17 13:08] LABS: LYMPHOCYTE 10 % (20-40); NEUTROPHIL 40 % (50-75); PLATELET ESTIMATE NORMAL (NORMAL)
--- NOTE | 2017-12-17 13:21 | CP.PCM.PN ---
Subjective - Date & Time of Evaluation Date of Evaluation: 12/17/17 Time of Evaluation: 13:00 - Subjective Subjective: Patient was seen and examined by me. She was not in any acute distress She is now off of the cardene ggt. The patient's BP is now in the 110s systolic range. Hgb is stable. Objective - Vital Signs/Intake and Output Vital Signs (last 24 hours): Temp Pulse Resp BP Pulse Ox 99 F 102 H 21 109/65 96 12/17/17 08:00 12/17/17 09:00 12/17/17 09:00 12/17/17 09:00 12/17/17 09:00 Intake and Output: 12/17/17 12/17/17 06:59 18:59 Intake Total 1320 220 Output Total 500 Balance 820 220 - Medications Medications: Current Medications Albuterol/Ipratropium (Duoneb 3 Mg/0.5 Mg (3 Ml) Ud) 3 ml INH RQ4 PRN PRN Reason: Shortness of Breath Last Admin: 12/16/17 14:24 Dose: 3 ml Dextrose (Dextrose 50% Inj) 0 ml IV STAT PRN; Protocol PRN Reason: Hypoglycemia Protocol Dextrose (Glutose 15) 15 gm PO ONCE PRN; Protocol PRN Reason: Hypoglycemia Protocol Glucagon (Glucagen Diagnostic Kit) 1 mg IM STAT PRN; Protocol PRN Reason: Hypoglycemia Protocol Hydralazine HCl (Apresoline) 10 mg IVP Q6H PRN PRN Reason: Systolic Blood Pressure Hydromorphone HCl (Dilaudid) 0.5 mg IVP Q4H PRN PRN Reason: Pain, severe (8-10) Last Admin: 12/17/17 10:27 Dose: 0.5 mg Piperacillin Sod/Tazobactam Sod (Zosyn 3.375 Gm Iv Premix) 3.375 gm in 50 mls @ 100 mls/hr IVPB Q6H [facility] PRN Reason: Protocol Last Admin: 12/17/17 10:05 Dose: 100 mls/hr Sodium Chloride (Sodium Chloride 0.9%) 1,000 mls @ 100 mls/hr IV .Q10H [facility] Last Admin: 12/17/17 10:04 Dose: 100 mls/hr Pantoprazole Sodium 80 mg/ (Sodium Chloride) 100 mls @ 10 mls/hr IV .Q10H [facility] PRN Reason: 8 MG/HR Last Admin: 12/17/17 06:04 Dose: 10 mls/hr Dextrose (Dextrose 5% In Water 1000 Ml) 1,000 mls @ 0 mls/hr IV .Q0M PRN; Protocol; Per Protocol PRN Reason: Hypoglycemia Protocol Insulin Human Regular (Novolin R) 0 unit SC ACHS [facility] PRN Reason: Protocol Last Admin: 12/17/17 08:41 Dose: Not Given - Labs Labs: 12/17/17 12:37 12/17/17 06:27 PT 11.6 SECONDS (9.7-12.2) 12/16/17 11:25 INR 1.1 12/16/17 11:25 - Constitutional Appears: No Acute Distress, Unkempt, Chronically Ill - Head Exam Head Exam: NORMAL INSPECTION - Eye Exam Eye Exam: EOMI, Normal appearance - ENT Exam ENT Exam: Mucous Membranes Moist - Cardiovascular Exam Cardiovascular Exam: REGULAR RHYTHM - GI/Abdominal Exam GI & Abdominal Exam: Soft, Tenderness. absent: Distended, Firm, Guarding, Rigid - Neurological Exam Neurological Exam: Alert, Awake, Oriented x3 Neuro motor strength exam: Left Upper Extremity: 5, Right Upper Extremity: 5, Left Lower Extremity: 5, Right Lower Extremity: 5 - Psychiatric Exam Psychiatric exam: Normal Affect, Normal Mood - Skin Skin Exam: Normal Color, Warm Assessment and Plan - Assessment and Plan (Free Text) Assessment: Hypertension 12/17: Now off of the cardene ggt. Her BP systolics have been stable since yesterday afternoon. Probably the very elevated numbers were from the carcinoid tumour that is now removed. 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 COPD - stable at this moment. Continue with 12/17: Heme/ Onc: A: Hx breast cancer s/p lumpectomy Protonix - Protonix Drip - SCDs, VTE c/i post op / concern for bleeding
[2017-12-17 13:22] LABS: ALB/GLOB RATIO 1.3 (1.0-2.1); ALBUMIN 3.7 g/dL (3.5-5.0); CALCIUM 6.9 mg/dl (8.6-10.4)
--- NOTE | 2017-12-17 13:29 | CP.PCM.PN ---
Subjective - Date & Time of Evaluation Date of Evaluation: 12/17/17 Time of Evaluation: 13:20 - Subjective Subjective: 77 yo female s/p EGD-EUS with bleeding/perforation (clipping and cautery) 106/62 99 rr 18 96% SIS2, RRR CTA BL AAO x 3 Airway patent, Cardio stable No nausea - vomiting Pt. complaing of abdomal pain. 11/14, Pain will continue to be Treated by ICU Pt will continue to be monitored by the ICu and Surgical team. Objective - Vital Signs/Intake and Output Vital Signs (last 24 hours): Temp Pulse Resp BP Pulse Ox 99 F 102 H 21 109/65 96 12/17/17 08:00 12/17/17 09:00 12/17/17 09:00 12/17/17 09:00 12/17/17 09:00 Intake and Output: 12/17/17 12/17/17 06:59 18:59 Intake Total 1320 220 Output Total 500 Balance 820 220 - Medications Medications: Current Medications Albuterol/Ipratropium (Duoneb 3 Mg/0.5 Mg (3 Ml) Ud) 3 ml INH RQ4 PRN PRN Reason: Shortness of Breath Last Admin: 12/16/17 14:24 Dose: 3 ml Dextrose (Dextrose 50% Inj) 0 ml IV STAT PRN; Protocol PRN Reason: Hypoglycemia Protocol Dextrose (Glutose 15) 15 gm PO ONCE PRN; Protocol PRN Reason: Hypoglycemia Protocol Glucagon (Glucagen Diagnostic Kit) 1 mg IM STAT PRN; Protocol PRN Reason: Hypoglycemia Protocol Hydralazine HCl (Apresoline) 10 mg IVP Q6H PRN PRN Reason: Systolic Blood Pressure Hydromorphone HCl (Dilaudid) 0.5 mg IVP Q4H PRN PRN Reason: Pain, severe (8-10) Last Admin: 12/17/17 10:27 Dose: 0.5 mg Piperacillin Sod/Tazobactam Sod (Zosyn 3.375 Gm Iv Premix) 3.375 gm in 50 mls @ 100 mls/hr IVPB Q6H [facility] PRN Reason: Protocol Last Admin: 12/17/17 10:05 Dose: 100 mls/hr Sodium Chloride (Sodium Chloride 0.9%) 1,000 mls @ 100 mls/hr IV .Q10H [facility] Last Admin: 12/17/17 10:04 Dose: 100 mls/hr Pantoprazole Sodium 80 mg/ (Sodium Chloride) 100 mls @ 10 mls/hr IV .Q10H [facility] PRN Reason: 8 MG/HR Last Admin: 12/17/17 06:04 Dose: 10 mls/hr Dextrose (Dextrose 5% In Water 1000 Ml) 1,000 mls @ 0 mls/hr IV .Q0M PRN; Protocol; Per Protocol PRN Reason: Hypoglycemia Protocol Insulin Human Regular (Novolin R) 0 unit SC ACHS [facility] PRN Reason: Protocol Last Admin: 12/17/17 08:41 Dose: Not Given - Labs Labs: 12/17/17 12:37 12/17/17 06:27 PT 11.6 SECONDS (9.7-12.2) 12/16/17 11:25 INR 1.1 12/16/17 11:25
[2017-12-17 13:32] LABS: HEPATITIS B SURFACE AG Negative (NEGATIVE)
[2017-12-17 13:38] LABS: HEPATITIS A IGM NEGATIVE (NEGATIVE); HEPATITIS B CORE AB NEGATIVE (NEGATIVE)
[2017-12-17 13:49] LABS: HEPATITIS C ANTIBODY NEGATIVE (NEGATIVE)
[2017-12-17] MEDS ORDERED: DOPamine 400mg/250ml D5W 400 MG/250 ML BAG IV PRN (16:35)
--- NOTE | 2017-12-17 17:06 | US ---
HISTORY: abdominal pain, elevated LFTs COMPARISON: CT abdomen and pelvis from 12/16/2017. TECHNIQUE: Sonographic evaluation of the abdomen. FINDINGS: LIVER: Measures 15.0 cm. There is diffuse increased echogenicity of the liver parenchyma. No mass. No intrahepatic bile duct dilatation. GALLBLADDER: Surgically absent. COMMON BILE DUCT: Measures 4.0 mm. No stones. No dilatation. PANCREAS: Unremarkable as visualized. No mass. No ductal dilatation. RIGHT KIDNEY: Measures 10.5cm. Normal echogenicity. No calculus, mass, or hydronephrosis. LEFT KIDNEY: Measures 11.1cm. Normal echogenicity. No calculus, mass, or hydronephrosis. SPLEEN: Normal in size and contour. No mass. AORTA: No aneurysmal dilatation. IVC: Unremarkable. OTHER FINDINGS: There is mild perihepatic ascites. IMPRESSION: Diffuse increased echogenicity in the liver may reflect hepatic steatosis however parenchymal infectious/ inflammatory etiologies cannot be entirely excluded. Clinical and laboratory correlation is advised. Mild perihepatic ascites.
[2017-12-18] MEDS: Pantoprazole 80 MG in Sodium Chloride 0.9% 100 ML IV SCH ×4 (01:52→21:51)
[2017-12-18] MEDS: Sodium Chloride 0.9% 1,000 ML IV SCH ×3 (04:27→21:51)
[2017-12-18] MEDS: Piperacill/Tazo 3.375gm in Dex 3.375 GM/50 ML BAG IVPB SCH (04:28)
[2017-12-18] MEDS: HYDROmorphone 0.5 mg/0.5 ml ISec IVP PRN ×2 (05:55→13:04)
[2017-12-18 06:23] LABS: BASO % 0.1 % (0.0-2.0); HEMOGLOBIN 14.2 g/dL (11.0-16.0); LYMPH # 0.8 K/uL (1.0-4.3); MEAN CELL VOLUME 87.9 fL (81.0-99.0); MEAN CORPUSCULAR HEMOGLOBIN 28.7 pg (27.0-31.0); MEAN CORPUSCULAR HGB CONC 32.7 g/dL (33.0-37.0); MEAN PLATELET VOLUME 11.7 fL (7.2-11.7); MONO # 0.6 K/uL (0.0-0.8); MONO % 6.9 % (0.0-10.0); PLATELET COUNT 175 K/uL (130-400); RBC 4.95 Mil/uL (3.80-5.20); RED CELL DISTRIBUTION WIDTH 14.2 % (11.5-14.5); WHITE BLOOD COUNT 8.4 K/uL (4.8-10.8)
[2017-12-18 06:40] LABS: ALB/GLOB RATIO 1.1 (1.0-2.1); ALBUMIN 3.2 g/dL (3.5-5.0); CALCIUM 5.6 mg/dl (8.6-10.4)
[2017-12-18] MEDS: (Novolin R) Insulin Human Regular 100 units/ml vial SC SCH ×4 (07:34→23:45)
[2017-12-18] MEDS ORDERED: Sodium Chloride 0.9% 500 ML IV ONE ×3 (07:39→19:42)
--- NOTE | 2017-12-18 08:22 | CP.PCM.PN ---
Subjective - Date & Time of Evaluation Date of Evaluation: 12/18/17 Time of Evaluation: 08:00 - Subjective Subjective: Patient was seen and examined by me. We are getting a ABG shock panel as well as a stat CT of the abdomen and pelvis without contrast. She is still having abdominal pain, this morning almost guarding like exam of the right abdomen. There was only 50 cc from the NGT so far these past 12 hrs The serum bicarb went from 22 to just 14. There is an elevated procalcitonin - still pending blood cultures and urine cultures from yesterday The creatine also continues to climb as well. The urine output was - they just re-inserted bruce. Ideally would be better to get an CT of abd and pelivis with IV contrast but her creatine is elevated. Objective - Vital Signs/Intake and Output Vital Signs (last 24 hours): Temp Pulse Resp BP Pulse Ox 98.4 F 109 H 17 109/68 96 12/18/17 04:00 12/18/17 06:58 12/18/17 06:58 12/18/17 06:58 12/18/17 06:58 Intake and Output: 12/18/17 12/18/17 06:59 18:59 Intake Total 1555 Output Total 300 Balance 1255 - Medications Medications: Current Medications Albuterol/Ipratropium (Duoneb 3 Mg/0.5 Mg (3 Ml) Ud) 3 ml INH RQ4 PRN PRN Reason: Shortness of Breath Last Admin: 12/16/17 14:24 Dose: 3 ml Dextrose (Dextrose 50% Inj) 0 ml IV STAT PRN; Protocol PRN Reason: Hypoglycemia Protocol Dextrose (Glutose 15) 15 gm PO ONCE PRN; Protocol PRN Reason: Hypoglycemia Protocol Glucagon (Glucagen Diagnostic Kit) 1 mg IM STAT PRN; Protocol PRN Reason: Hypoglycemia Protocol Hydralazine HCl (Apresoline) 10 mg IVP Q6H PRN PRN Reason: Systolic Blood Pressure Hydromorphone HCl (Dilaudid) 0.5 mg IVP Q4H PRN PRN Reason: Pain, severe (8-10) Last Admin: 12/18/17 05:55 Dose: 0.5 mg Piperacillin Sod/Tazobactam Sod (Zosyn 3.375 Gm Iv Premix) 3.375 gm in 50 mls @ 100 mls/hr IVPB Q6H [facility] PRN Reason: Protocol Last Admin: 12/18/17 04:28 Dose: 100 mls/hr Sodium Chloride (Sodium Chloride 0.9%) 1,000 mls @ 100 mls/hr IV .Q10H [facility] Last Admin: 12/18/17 04:27 Dose: Not Given Pantoprazole Sodium 80 mg/ (Sodium Chloride) 100 mls @ 10 mls/hr IV .Q10H [facility] PRN Reason: 8 MG/HR Last Admin: 12/18/17 01:52 Dose: 10 mls/hr Dextrose (Dextrose 5% In Water 1000 Ml) 1,000 mls @ 0 mls/hr IV .Q0M PRN; Protocol; Per Protocol PRN Reason: Hypoglycemia Protocol Calcium Gluconate 2,000 mg/ (Sodium Chloride) 270 mls @ 100 mls/hr IVPB ONCE ONE Stop: 12/18/17 10:41 Last Admin: 12/18/17 07:42 Dose: 100 mls/hr Insulin Human Regular (Novolin R) 0 unit SC ACHS [facility] PRN Reason: Protocol Last Admin: 12/18/17 07:34 Dose: Not Given - Labs Labs: 12/18/17 06:07 12/18/17 06:04 PT 11.6 SECONDS (9.7-12.2) 12/16/17 11:25 INR 1.1 12/16/17 11:25 - Constitutional Appears: Toxic, Chronically Ill - Head Exam Head Exam: NORMAL INSPECTION, NORMOCEPHALIC - Eye Exam Eye Exam: EOMI - ENT Exam ENT Exam: Mucous Membranes Moist - Respiratory Exam Respiratory Exam: Decreased Breath Sounds, Clear to Ausculation Bilateral - Cardiovascular Exam Cardiovascular Exam: REGULAR RHYTHM - GI/Abdominal Exam GI & Abdominal Exam: Soft, Tenderness - Neurological Exam Neurological Exam: Alert, Awake, Oriented x3 Neuro motor strength exam: Left Upper Extremity: 4, Right Upper Extremity: 4, Left Lower Extremity: 4, Right Lower Extremity: 4 - Psychiatric Exam Psychiatric exam: Normal Affect, Normal Mood - Skin Skin Exam: Normal Color, Warm Assessment and Plan - Assessment and Plan (Free Text) Assessment: Metabolic acidosis possibly from sepsis or abdominal complications. 12/18: Serum bicarb was 22 yesterday now 14 this morning. Check ABG as well as a repeat CT scan of the chest abdomen and pelvis. She is on abx, however this may need to be changed if the cultures come back positive. Procalcitonin was high but the WBC was low. Afebrile. The first CT done on 12/16 reported that there was some intrapertoneal air about the 1st and 2nd duodenum extending into gall bladder fossa No hemopertinium. Acute Kidney Injury 12/18: Rising creatine, pending ABG shock panel. Maybe sepsis related or abdominal complications. Hypertension 12/18: Currently systolic in the low 100s. Off of cardene ggt. 12/17: Now off of the cardene ggt. Her BP systolics have been stable since yesterday afternoon. Probably the very elevated numbers were from the carcinoid tumour that is now removed. 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 COPD - stable at this moment. Continue with 12/17: Heme/ Onc: A: Hx breast cancer s/p lumpectomy Protonix
[2017-12-18 08:49] LABS: ABG ALLEN TEST POS; ARTERIAL BLOOD GAS HCO3 17.9 mmol/L (21-28); ARTERIAL BLOOD GAS O2 SAT 96.7 % (95-98); ARTERIAL BLOOD GAS PCO2 31 mm/Hg (35-45); ARTERIAL BLOOD GAS PH 7.32 (7.35-7.45); ARTERIAL BLOOD GAS PO2 73 mm/Hg (80-100)
[2017-12-18 08:50] LABS: BANDS 61 % (0-2); LYMPHOCYTE 12 % (20-40); MONOCYTE 1 % (0-10); NEUTROPHIL 24 % (50-75); REACTIVE LYMPHOCYTES 2 % (0-0); TOTAL CELLS COUNTED 100
[2017-12-18 08:51] LABS: PLATELET ESTIMATE NORMAL (NORMAL)
[2017-12-18 08:57] LABS: CREATININE, RANDOM URINE 105.8 mg/dL; SQUAMOUS EPITHIAL < 1 /hpf (0-5); URINE BILIRUBIN NEGATIVE (NEGATIVE); URINE BLOOD NEGATIVE (NEGATIVE); URINE CLARITY Hazy (Clear); URINE COLOR Amber (YELLOW); URINE GLUCOSE (UA) 1+ mg/dL (Normal); URINE LEUKOCYTE ESTERASE NEG Leu/uL (Negative); URINE PROTEIN 1+ mg/dL (NEGATIVE); URINE UROBILINOGEN NORMAL mg/dL (0.2-1.0)
[2017-12-18 10:05] LABS: URINE BACTERIA RARE (<OCC)
--- NOTE | 2017-12-18 10:05 | CP.PCM.PN ---
<Benita Hurst - Last Filed: 12/18/17 10:17> Subjective - Date & Time of Evaluation Date of Evaluation: 12/18/17 Time of Evaluation: 07:00 - Subjective Subjective: GI Fellow PGY4 Progress Note Pt seen and evaluated at bedside, pt doing okay and reports abdominal pain with any movement. Per nursing, pt requiring Dilaudid q4hrs for abdominal pain. No BM , no flatus per pt. Pt hemodynamically stable, but BP low yesterday and now SBP 109. Urine outpt 250cc/hr No GI bleeding. NGT placed by surgery this am. ROS:A 12pt ROS was negative except as above. Objective - Vital Signs/Intake and Output Vital Signs (last 24 hours): Temp Pulse Resp BP Pulse Ox 98.5 F 102 H 19 129/79 95 12/18/17 08:00 12/18/17 08:00 12/18/17 08:00 12/18/17 08:00 12/18/17 08:00 Intake and Output: 12/18/17 12/18/17 06:59 18:59 Intake Total 1555 210 Output Total 300 185 Balance 1255 25 - Medications Medications: Current Medications Albuterol/Ipratropium (Duoneb 3 Mg/0.5 Mg (3 Ml) Ud) 3 ml INH RQ4 PRN PRN Reason: Shortness of Breath Last Admin: 12/16/17 14:24 Dose: 3 ml Dextrose (Dextrose 50% Inj) 0 ml IV STAT PRN; Protocol PRN Reason: Hypoglycemia Protocol Dextrose (Glutose 15) 15 gm PO ONCE PRN; Protocol PRN Reason: Hypoglycemia Protocol Glucagon (Glucagen Diagnostic Kit) 1 mg IM STAT PRN; Protocol PRN Reason: Hypoglycemia Protocol Hydralazine HCl (Apresoline) 10 mg IVP Q6H PRN PRN Reason: Systolic Blood Pressure Hydromorphone HCl (Dilaudid) 0.5 mg IVP Q4H PRN PRN Reason: Pain, severe (8-10) Last Admin: 12/18/17 05:55 Dose: 0.5 mg Sodium Chloride (Sodium Chloride 0.9%) 1,000 mls @ 100 mls/hr IV .Q10H [facility] Last Admin: 12/18/17 04:27 Dose: Not Given Pantoprazole Sodium 80 mg/ (Sodium Chloride) 100 mls @ 10 mls/hr IV .Q10H [facility] PRN Reason: 8 MG/HR Last Admin: 12/18/17 01:52 Dose: 10 mls/hr Dextrose (Dextrose 5% In Water 1000 Ml) 1,000 mls @ 0 mls/hr IV .Q0M PRN; Protocol; Per Protocol PRN Reason: Hypoglycemia Protocol Calcium Gluconate 2,000 mg/ (Sodium Chloride) 270 mls @ 100 mls/hr IVPB ONCE ONE Stop: 12/18/17 10:41 Last Admin: 12/18/17 07:42 Dose: 100 mls/hr Sodium Chloride (Sodium Chloride 0.9%) 500 mls @ 1,000 mls/hr IV .Q30M ONE Stop: 12/18/17 10:00 Meropenem 500 mg/ Sodium (Chloride) 100 mls @ 100 mls/hr IVPB Q12 [facility] PRN Reason: Protocol Insulin Human Regular (Novolin R) 0 unit SC ACHS [facility] PRN Reason: Protocol Last Admin: 12/18/17 07:34 Dose: Not Given - Labs Labs: 12/18/17 06:07 12/18/17 06:04 PT 11.6 SECONDS (9.7-12.2) 12/16/17 11:25 INR 1.1 12/16/17 11:25 - Constitutional Appears: Non-toxic, No Acute Distress - Head Exam Head Exam: ATRAUMATIC, NORMAL INSPECTION, NORMOCEPHALIC - Eye Exam Eye Exam: EOMI, Normal appearance, PERRL Pupil Exam: PERRL - ENT Exam ENT Exam: Mucous Membranes Moist, Normal Exam Additional comments: ENT - Neck Exam Neck Exam: Full ROM, Normal Inspection - Respiratory Exam Respiratory Exam: Decreased Breath Sounds, NORMAL BREATHING PATTERN - Cardiovascular Exam Cardiovascular Exam: Tachycardia, +S1, +S2 - GI/Abdominal Exam GI & Abdominal Exam: Soft, Tenderness, Hypoactive Bowel Sounds. absent: Normal Bowel Sounds, Organomegaly - Rectal Exam Rectal Exam: Deferred - Extremities Exam Extremities Exam: Full ROM, Normal Inspection - Back Exam Back Exam: NORMAL INSPECTION - Neurological Exam Neurological Exam: Alert, Awake, Oriented x3 - Psychiatric Exam Psychiatric exam: Normal Affect, Normal Mood - Skin Skin Exam: Dry, Intact, Normal Color, Warm Assessment and Plan - Assessment and Plan (Free Text) Assessment: This is a 77 year old female with past medical history of hypertension, COPD, breast cancer s/p lumpectomy that presented to same day 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 Pt is s/p EGD/EUS with EMR complicated by bleeding and perforation s/p clip placement x 7, epi injection, and bipolar cautery. 1. Duodenal perforation 2. GI bleeding 3. EMR of carcinoid tumor in duodenum 4. Elevated LFTs 5. MANFRED possible ATN Plan: -Continue supportive care with pain control - Pt with NGT per surgery, minimal bilious outpt - EMR of duodenal carcinoid tumor complicated by bleed that was treated with a combination of clipping, electrocautery and epinephrine - CT A/P reviewed with free intraperitoneal air, consistent with duodenal perforation - Hgb stable with no acute blood loss anemia, not requiring transfusion - Monitor Hgb, labs daily - Protonix drip - IV abx Zosyn - Pt clinically hemodynamically stable, BP on the lower side - MANFRED likely ATN, recommend nephrology cs, renal us, urine electrolytes - Metabolic acidosis likely from MANFRED - IVF hydration and bolus - NPO - Appreciate surgical consult, plan for upper GI series within 72 hrs - Will continue to follow pt closely <Andrew Flynn - Last Filed: 12/18/17 16:43> Objective - Vital Signs/Intake and Output Vital Signs (last 24 hours): Temp Pulse Resp BP Pulse Ox 98.8 F 115 H 18 149/112 H 95 12/18/17 12:00 12/18/17 13:00 12/18/17 13:00 12/18/17 13:00 12/18/17 13:00 Intake and Output: 12/18/17 12/18/17 06:59 18:59 Intake Total 1555 1610 Output Total 300 245 Balance 1255 1365 - Medications Medications: Current Medications Albuterol/Ipratropium (Duoneb 3 Mg/0.5 Mg (3 Ml) Ud) 3 ml INH RQ4 PRN PRN Reason: Shortness of Breath Last Admin: 12/16/17 14:24 Dose: 3 ml Dextrose (Dextrose 50% Inj) 0 ml IV STAT PRN; Protocol PRN Reason: Hypoglycemia Protocol Dextrose (Glutose 15) 15 gm PO ONCE PRN; Protocol PRN Reason: Hypoglycemia Protocol Glucagon (Glucagen Diagnostic Kit) 1 mg IM STAT PRN; Protocol PRN Reason: Hypoglycemia Protocol Hydralazine HCl (Apresoline) 10 mg IVP Q6H PRN PRN Reason: Systolic Blood Pressure Hydromorphone HCl (Dilaudid) 0.5 mg IVP Q4H PRN PRN Reason: Pain, severe (8-10) Last Admin: 12/18/17 13:04 Dose: 0.5 mg Sodium Chloride (Sodium Chloride 0.9%) 1,000 mls @ 100 mls/hr IV .Q10H [facility] Last Admin: 12/18/17 12:16 Dose: Not Given Pantoprazole Sodium 80 mg/ (Sodium Chloride) 100 mls @ 10 mls/hr IV .Q10H [facility] PRN Reason: 8 MG/HR Last Admin: 12/18/17 13:38 Dose: 10 mls/hr Dextrose (Dextrose 5% In Water 1000 Ml) 1,000 mls @ 0 mls/hr IV .Q0M PRN; Protocol; Per Protocol PRN Reason: Hypoglycemia Protocol Meropenem 500 mg/ Sodium (Chloride) 100 mls @ 100 mls/hr IVPB Q12 [facility] PRN Reason: Protocol Last Admin: 12/18/17 11:49 Dose: 100 mls/hr BUPIVACAINE 0.125%/0.9% NACL (Bupivacaine-Ns 0.125% On-Q [employer]) 600 mls @ 4 mls/ hr IJ ONCE ONE Stop: 12/24/17 21:59 Insulin Human Regular (Novolin R) 0 unit SC ACHS [facility] PRN Reason: Protocol Last Admin: 12/18/17 12:15 Dose: Not Given - Labs Labs: 12/18/17 06:07 12/18/17 06:04 PT 15.9 SECONDS (9.7-12.2) H 12/18/17 12:39 INR 1.5 12/18/17 12:39 APTT 40 SECONDS (21-34) H 12/18/17 12:39 Attending/Attestation - Attestation I have personally seen and examined this patient.: Yes I have fully participated in the care of the patient.: Yes I have reviewed all pertinent clinical information, including history, physical exam and plan: Yes Notes (Text): 12/18/17 16:41 77 year old female with h/o obesity, HTN s/p EUS/EMR of duodenal carcinoid complicated by bleeding and perforation s/p hemoclip placement x 7. Bleeding stopped during procedure, but perforation appears not have been closed based on follow up CT and UGI series. She also has developed MANFRED possibly due to ATN in the setting of rapid lowering of bp post operatively from 200s to 100s. Nephrology has been consulted and she may need dialysis. She is going to OR today for repair/closure of perforation. Continue broad spectrum abx. NPO/NG decompression. Will follow.
[2017-12-18] MEDS ORDERED: Iohexol 240 200 ML ONE (10:08)
--- NOTE | 2017-12-18 10:33 | CT ---
PROCEDURE: CT Chest, Abdomen and Pelvis without intravenous contrast HISTORY: ab pain, guarding s/p EUS resection of carcinoid COMPARISON: None. TECHNIQUE: Radiation dose: Total exam DLP = 1907.24 mGy-cm. This CT exam was performed using one or more of the following dose reduction techniques: Automated exposure control, adjustment of the mA and/or kV according to patient size, and/or use of iterative reconstruction technique. FINDINGS: CT CHEST WITHOUT CONTRAST: LUNGS: No pulmonary infiltrate. No pulmonary mass. Linear scar/ atelectasis in both lower lobes. Trace right pleural effusion. Right lower lobe subsegmental atelectasis. MEDIASTINUM: Normal heart size. No pericardial effusion. No thoracic aortic aneurysm. Normal caliber of main pulmonary artery. No lymphadenopathy. There is a 1.9 cm mass in the lower pole of the left thyroid lobe. Correlate with thyroid ultrasound examination. A nasogastric tube traverses the esophagus to the abdomen. LYMPH NODES: Unremarkable. PLEURA: As above BONES: Unremarkable. OTHER FINDINGS: None. CT ABDOMEN AND PELVIS: LIVER: Normal size and contour. Mild diffuse fatty infiltration. Smooth contour. No mass. No biliary dilatation. GALLBLADDER AND BILE DUCTS: Status post cholecystectomy. Mild dilatation of common bile duct consistent with age and prior cholecystectomy. PANCREAS: There is mild peripancreatic fluid which may be related to more generalized intraperitoneal and retroperitoneal fluid. However, cannot rule out pancreatitis. Please correlate with laboratory and clinical evaluation. Questionable 9 mm rounded fluid density mass in the pancreatic body. This was not clearly appreciated on prior CT examination of 12/16/2017. Further evaluation is advised when clinically feasible with multiphasic contrast-enhanced CT. SPLEEN: Unremarkable. ADRENALS: Unremarkable. No mass. KIDNEYS AND URETERS: Right perinephric fluid not appreciated previously. Right perinephric as well as paranephric gas. Fluid in right posterior para renal space not appreciated previously. Likely violation of the perineum on the right side. Likely violation of Gerota's fascia. No renal mass, calculus or hydronephrosis. VASCULATURE: Unremarkable. No aortic aneurysm. BOWEL: Sigmoid diverticulosis. No bowel obstruction. No diverticulitis. APPENDIX: Normal appendix. PERITONEUM: Mild ascites. Pneumoperitoneum slightly increased when compared to prior CT examination. Extensive gas in the region of the 2nd portion of the duodenum extending into the nasim hepatis region. This is similar in appearance to the prior CT examination. LYMPH NODES: Unremarkable. No enlarged lymph nodes. BLADDER: Nondistended. Esteban catheter balloon. REPRODUCTIVE: Postmenopausal uterus. BONES: No acute fracture OTHER FINDINGS: None IMPRESSION: Mild increase in the extent of pneumoperitoneum. Increasing ascites. Extensive gas adjacent to 2nd duodenum and nasim hepatis. Status post cholecystectomy. Nasogastric tube. Fluid in retroperitoneum and gas in perinephric space on right side. Cannot rule out pancreatitis. Please correlate. Trace right pleural effusion. No pulmonary infiltrate.
--- NOTE | 2017-12-18 11:31 | CP.CCUPN ---
<Estefania Veliz - Last Filed: 12/18/17 12:06> CCU Subjective - Physician Review Subjective (Free Text): Patient seen and examined at bedside. Patient reports she has not passed flatus or had a BM. Patient appears toxic with guarding on abdominal exam. She had 250cc urine output last night. Bruce inserted with <250cc output. Last 1-2 hours 10-20 cc/hr. 12/18/17 11:58 CCU Objective - Vital Signs / Intake & Output Vital Signs (Last 4 hours): Vital Signs Temp Pulse Resp BP Pulse Ox 12/18/17 08:00 98.5 F 102 H 19 129/79 95 Intake and Output (Last 8hrs): Intake & Output 12/17/17 12/18/17 12/18/17 22:59 06:59 14:59 Intake Total 880 1115 210 Output Total 300 185 Balance 880 815 25 Weight 232 lb 8 oz Intake: Intake, IV Amount 880 1115 210 Left Hand 125 Right Antecubital 80 90 10 Rt AC 800 900 200 Output: Gastric Amount 50 Left Nares 50 Urine 250 185 Urethral (Bruce) 185 Urine, Voided 250 Other: # Bowel Movements 0 0 - Physical Exam Head: Positive for: Atraumatic, Normocephalic, Ecchymosis Extroacular Muscles: Positive for: EOMI Conjunctiva: Positive for: Normal Mouth: Positive for: Other (NGT in place with 100cc output ) Respiratory/Chest: Positive for: Clear to Auscultation. Negative for: Decreased Breath Sounds Cardiovascular: Positive for: Regular Rate and Rhythm Abdomen: Positive for: Tenderness, Normal Bowel Sounds, Guarding. Negative for : Distention Upper Extremity: Positive for: Normal Inspection, NORMAL PULSES, Neurovascularly Intact, Capillary Refill < 2s Lower Extremity: Positive for: Normal Inspection, NORMAL PULSES, Neurovascularly Intact, Capillary Refill < 2 s Neurological: Positive for: GCS=15, CN II-XII Intact Skin: Positive for: Warm, Dry, Normal Color Psychiatric: Positive for: Alert, Oriented x 3, Normal Insight, Normal Concentration - Medications Active Medications: Active Medications Generic Name Dose Route Start Last Admin Trade Name Freq PRN Reason Stop Dose Admin Albuterol/Ipratropium 3 ml 12/16/17 12:03 12/16/17 14:24 Duoneb 3 Mg/0.5 Mg (3 Ml) Ud INH 3 ml RQ4 PRN Administration Shortness of Breath Dextrose 0 ml 12/16/17 12:08 Dextrose 50% Inj IV STAT PRN Hypoglycemia Protocol Protocol Dextrose 15 gm 12/16/17 12:08 Glutose 15 PO ONCE PRN Hypoglycemia Protocol Protocol Glucagon 1 mg 12/16/17 12:08 Glucagen Diagnostic Kit IM STAT PRN Hypoglycemia Protocol Protocol Hydralazine HCl 10 mg 12/17/17 12:05 Apresoline IVP Q6H PRN Systolic Blood Pressure Hydromorphone HCl 0.5 mg 12/17/17 09:53 12/18/17 05:55 Dilaudid IVP 0.5 mg Q4H PRN Administration Pain, severe (8-10) Sodium Chloride 1,000 mls @ 100 mls/hr 12/16/17 09:30 12/18/17 04:27 Sodium Chloride 0.9% IV Not Given .Q10H FESTUS Pantoprazole Sodium 80 mg/ 100 mls @ 10 mls/hr 12/16/17 09:35 12/18/17 01:52 Sodium Chloride IV 10 mls/hr .Q10H FESTUS Administration 8 MG/HR Dextrose 1,000 mls @ 0 mls/hr 12/16/17 12:08 Dextrose 5% In Water 1000 Ml IV .Q0M PRN Hypoglycemia Protocol Protocol Per Protocol Meropenem 500 mg/ Sodium 100 mls @ 100 mls/hr 12/18/17 10:00 Chloride IVPB Q12 [facility] Protocol Insulin Human Regular 0 unit 12/16/17 16:30 12/18/17 07:34 Novolin R SC Not Given [facility] Protocol - Patient Studies Lab Studies: Microbiology Studies 12/16/17 11:33 MRSA Culture (Admit) - Final Naris MRSA NOT DETECTED Lab Studies 12/18/17 12/18/17 12/18/17 Range/Units 08:45 08:27 08:27 WBC (4.8-10.8) K/uL RBC (3.80-5.20) Mil/uL Hgb (11.0-16.0) g/dL Hct (34.0-47.0) % MCV (81.0-99.0) fL MCH (27.0-31.0) pg MCHC (33.0-37.0) g/dL RDW (11.5-14.5) % Plt Count (130-400) K/uL MPV (7.2-11.7) fL Neut % (Auto) (50.0-75.0) % Lymph % (Auto) (20.0-40.0) % [place] % (Auto) (0.0-10.0) % Eos % (Auto) (0.0-4.0) % Baso % (Auto) (0.0-2.0) % Neut # (Auto) (1.8-7.0) K/uL Lymph # (Auto) (1.0-4.3) K/uL [place] # (Auto) (0.0-0.8) K/uL Eos # (Auto) (0.0-0.7) K/uL Baso # (Auto) (0.0-0.2) K/uL Neutrophils % (Manual) (50-75) % Band Neutrophils % (0-2) % Lymphocytes % (Manual) (20-40) % Reactive Lymphs % (0-0) % Monocytes % (Manual) (0-10) % Basophils % (Manual) (0-2) % Platelet Estimate (NORMAL) Puncture Site Rra pCO2 31 L (35-45) mm/Hg pO2 73 L (80-100) mm/Hg HCO3 17.9 L (21-28) mmol/L ABG pH 7.32 L (7.35-7.45) ABG Total CO2 17.0 L (22-28) mmol/L ABG O2 Saturation 96.7 (95-98) % ABG Base Excess -8.9 L (-2.0-3.0) mmol/L Richard Test Pos ABG Potassium 4.3 (3.6-5.2) mmol/L Glucose 140 H (65-105) mg/dl Lactate 1.7 (0.7-2.1) mmol/L Sodium 138.0 (132-148) mmol/L Potassium (3.6-5.2) mmol/L Chloride 109.0 H (98-107) mmol/L Carbon Dioxide (22-30) mmol/L Anion Gap (10-20) BUN (7-17) mg/dL Creatinine (0.7-1.2) mg/dL Est GFR ( Amer) Est GFR (Non-Af Amer) POC Glucose (mg/dL) (65-110) mg/dL Random Glucose (65-105) mg/dL Serum Osmolality (272-300) mosm/kg Lactic Acid (0.7-2.1) mmol/L Calcium (8.6-10.4) mg/dl Phosphorus (2.5-4.5) mg/dL Magnesium (1.6-2.3) mg/dL Total Bilirubin (0.2-1.3) mg/dL AST (14-36) U/L ALT (9-52) U/L Alkaline Phosphatase (38-126) U/L Total Creatine Kinase (30-135) U/L Total Protein (6.3-8.3) g/dL Albumin (3.5-5.0) g/dL Globulin (2.2-3.9) gm/dL Albumin/Globulin Ratio (1.0-2.1) Procalcitonin (0.19-0.49) NG/ML Arterial Blood Potassium 4.3 (3.6-5.2) mmol/L Urine Color [place] (YELLOW) Urine Clarity Hazy (Clear) Urine pH 5.0 (5.0-8.0) Ur Specific [place] 1.020 (1.003-1.030) Urine Protein 1+ H (NEGATIVE) mg/dL Urine Glucose (UA) 1+ (Normal) mg/dL Urine Ketones Trace (NEGATIVE) mg/dL Urine Blood Negative (NEGATIVE) Urine Nitrate Negative (NEGATIVE) Urine Bilirubin Negative (NEGATIVE) Urine Urobilinogen Normal (0.2-1.0) mg/dL Ur Leukocyte Esterase Neg (Negative) Orin/uL Urine WBC (Auto) 3 (0-5) /hpf Urine RBC (Auto) 5 H (0-3) /hpf Ur Squamous Epith Cells < 1 (0-5) /hpf Urine Bacteria Rare (<OCC) Urine Yeast (Budding) Few H (NEGATIVE) /hpf Urine Eosinophils (NEGATIVE) Urine Osmolality 549 (300-1000) mosm/kg Ur Random Creatinine 105.8 mg/dL Ur Random Sodium 126 mmol/L Hepatitis A IgM Ab (NEGATIVE) Hep Bs Antigen (NEGATIVE) Hep B Core IgM Ab (NEGATIVE) Hepatitis C Antibody (NEGATIVE) 06/13/18 06/13/18 06/13/18 Range/Units 08:27 07:14 06:07 WBC 8.4 (4.8-10.8) K/uL RBC 4.95 (3.80-5.20) Mil/uL Hgb 14.2 (11.0-16.0) g/dL Hct 43.5 (34.0-47.0) % MCV 87.9 (81.0-99.0) fL MCH 28.7 (27.0-31.0) pg MCHC 32.7 L (33.0-37.0) g/dL RDW 14.2 (11.5-14.5) % Plt Count 175 (130-400) K/uL MPV 11.7 (7.2-11.7) fL Neut % (Auto) 84.0 H (50.0-75.0) % Lymph % (Auto) 9.0 L (20.0-40.0) % [place] % (Auto) 6.9 (0.0-10.0) % Eos % (Auto) 0.0 (0.0-4.0) % Baso % (Auto) 0.1 (0.0-2.0) % Neut # (Auto) 7.0 (1.8-7.0) K/uL Lymph # (Auto) 0.8 L (1.0-4.3) K/uL [place] # (Auto) 0.6 (0.0-0.8) K/uL Eos # (Auto) 0.0 (0.0-0.7) K/uL Baso # (Auto) 0.0 (0.0-0.2) K/uL Neutrophils % (Manual) 24 L (50-75) % Band Neutrophils % 61 H* (0-2) % Lymphocytes % (Manual) 12 L (20-40) % Reactive Lymphs % 2 H (0-0) % Monocytes % (Manual) 1 (0-10) % Basophils % (Manual) (0-2) % Platelet Estimate Normal (NORMAL) Puncture Site pCO2 (35-45) mm/Hg pO2 (80-100) mm/Hg HCO3 (21-28) mmol/L ABG pH (7.35-7.45) ABG Total CO2 (22-28) mmol/L ABG O2 Saturation (95-98) % ABG Base Excess (-2.0-3.0) mmol/L Richard Test ABG Potassium (3.6-5.2) mmol/L Glucose (65-105) mg/dl Lactate (0.7-2.1) mmol/L Sodium (132-148) mmol/L Potassium (3.6-5.2) mmol/L Chloride (98-107) mmol/L Carbon Dioxide (22-30) mmol/L Anion Gap (10-20) BUN (7-17) mg/dL Creatinine (0.7-1.2) mg/dL Est GFR ( Amer) Est GFR (Non-Af Amer) POC Glucose (mg/dL) 131 H (65-110) mg/dL Random Glucose (65-105) mg/dL Serum Osmolality (272-300) mosm/kg Lactic Acid (0.7-2.1) mmol/L Calcium (8.6-10.4) mg/dl Phosphorus (2.5-4.5) mg/dL Magnesium (1.6-2.3) mg/dL Total Bilirubin (0.2-1.3) mg/dL AST (14-36) U/L ALT (9-52) U/L Alkaline Phosphatase (38-126) U/L Total Creatine Kinase (30-135) U/L Total Protein (6.3-8.3) g/dL Albumin (3.5-5.0) g/dL Globulin (2.2-3.9) gm/dL Albumin/Globulin Ratio (1.0-2.1) Procalcitonin (0.19-0.49) NG/ML Arterial Blood Potassium (3.6-5.2) mmol/L Urine Color (YELLOW) Urine Clarity (Clear) Urine pH (5.0-8.0) Ur Specific [place] (1.003-1.030) Urine Protein (NEGATIVE) mg/dL Urine Glucose (UA) (Normal) mg/dL Urine Ketones (NEGATIVE) mg/dL Urine Blood (NEGATIVE) Urine Nitrate (NEGATIVE) Urine Bilirubin (NEGATIVE) Urine Urobilinogen (0.2-1.0) mg/dL Ur Leukocyte Esterase (Negative) Orin/uL Urine WBC (Auto) (0-5) /hpf Urine RBC (Auto) (0-3) /hpf Ur Squamous Epith Cells (0-5) /hpf Urine Bacteria (<OCC) Urine Yeast (Budding) (NEGATIVE) /hpf Urine Eosinophils Negative (NEGATIVE) Urine Osmolality (300-1000) mosm/kg Ur Random Creatinine mg/dL Ur Random Sodium mmol/L Hepatitis A IgM Ab (NEGATIVE) Hep Bs Antigen (NEGATIVE) Hep B Core IgM Ab (NEGATIVE) Hepatitis C Antibody (NEGATIVE) 12/18/17 12/17/17 12/17/17 Range/Units 06:04 21:14 16:05 WBC (4.8-10.8) K/uL RBC (3.80-5.20) Mil/uL Hgb (11.0-16.0) g/dL Hct (34.0-47.0) % MCV (81.0-99.0) fL MCH (27.0-31.0) pg MCHC (33.0-37.0) g/dL RDW (11.5-14.5) % Plt Count (130-400) K/uL MPV (7.2-11.7) fL Neut % (Auto) (50.0-75.0) % Lymph % (Auto) (20.0-40.0) % [place] % (Auto) (0.0-10.0) % Eos % (Auto) (0.0-4.0) % Baso % (Auto) (0.0-2.0) % Neut # (Auto) (1.8-7.0) K/uL Lymph # (Auto) (1.0-4.3) K/uL [place] # (Auto) (0.0-0.8) K/uL Eos # (Auto) (0.0-0.7) K/uL Baso # (Auto) (0.0-0.2) K/uL Neutrophils % (Manual) (50-75) % Band Neutrophils % (0-2) % Lymphocytes % (Manual) (20-40) % Reactive Lymphs % (0-0) % Monocytes % (Manual) (0-10) % Basophils % (Manual) (0-2) % Platelet Estimate (NORMAL) Puncture Site pCO2 (35-45) mm/Hg pO2 (80-100) mm/Hg HCO3 (21-28) mmol/L ABG pH (7.35-7.45) ABG Total CO2 (22-28) mmol/L ABG O2 Saturation (95-98) % ABG Base Excess (-2.0-3.0) mmol/L Richard Test ABG Potassium (3.6-5.2) mmol/L Glucose (65-105) mg/dl Lactate (0.7-2.1) mmol/L Sodium 140 (132-148) mmol/L Potassium 4.7 (3.6-5.2) mmol/L Chloride 110 H (98-107) mmol/L Carbon Dioxide 14 L (22-30) mmol/L Anion Gap 21 H (10-20) BUN 56 H (7-17) mg/dL Creatinine 3.7 H (0.7-1.2) mg/dL Est GFR ( Amer) 14 Est GFR (Non-Af Amer) 12 POC Glucose (mg/dL) 129 H 150 H (65-110) mg/dL Random Glucose 134 H (65-105) mg/dL Serum Osmolality (272-300) mosm/kg Lactic Acid (0.7-2.1) mmol/L Calcium 5.6 L* (8.6-10.4) mg/dl Phosphorus 2.9 (2.5-4.5) mg/dL Magnesium 1.7 (1.6-2.3) mg/dL Total Bilirubin 1.1 (0.2-1.3) mg/dL AST 60 H D (14-36) U/L ALT 85 H D (9-52) U/L Alkaline Phosphatase 45 (38-126) U/L Total Creatine Kinase (30-135) U/L Total Protein 6.2 L (6.3-8.3) g/dL Albumin 3.2 L (3.5-5.0) g/dL Globulin 3.0 (2.2-3.9) gm/dL Albumin/Globulin Ratio 1.1 (1.0-2.1) Procalcitonin (0.19-0.49) NG/ML Arterial Blood Potassium (3.6-5.2) mmol/L Urine Color (YELLOW) Urine Clarity (Clear) Urine pH (5.0-8.0) Ur Specific [place] (1.003-1.030) Urine Protein (NEGATIVE) mg/dL Urine Glucose (UA) (Normal) mg/dL Urine Ketones (NEGATIVE) mg/dL Urine Blood (NEGATIVE) Urine Nitrate (NEGATIVE) Urine Bilirubin (NEGATIVE) Urine Urobilinogen (0.2-1.0) mg/dL Ur Leukocyte Esterase (Negative) Orin/uL Urine WBC (Auto) (0-5) /hpf Urine RBC (Auto) (0-3) /hpf Ur Squamous Epith Cells (0-5) /hpf Urine Bacteria (<OCC) Urine Yeast (Budding) (NEGATIVE) /hpf Urine Eosinophils (NEGATIVE) Urine Osmolality (300-1000) mosm/kg Ur Random Creatinine mg/dL Ur Random Sodium mmol/L Hepatitis A IgM Ab (NEGATIVE) Hep Bs Antigen (NEGATIVE) Hep B Core IgM Ab (NEGATIVE) Hepatitis C Antibody (NEGATIVE) 12/17/17 12/17/17 12/17/17 Range/Units 14:16 14:16 14:16 WBC (4.8-10.8) K/uL RBC (3.80-5.20) Mil/uL Hgb (11.0-16.0) g/dL Hct (34.0-47.0) % MCV (81.0-99.0) fL MCH (27.0-31.0) pg MCHC (33.0-37.0) g/dL RDW (11.5-14.5) % Plt Count (130-400) K/uL MPV (7.2-11.7) fL Neut % (Auto) (50.0-75.0) % Lymph % (Auto) (20.0-40.0) % [place] % (Auto) (0.0-10.0) % Eos % (Auto) (0.0-4.0) % Baso % (Auto) (0.0-2.0) % Neut # (Auto) (1.8-7.0) K/uL Lymph # (Auto) (1.0-4.3) K/uL [place] # (Auto) (0.0-0.8) K/uL Eos # (Auto) (0.0-0.7) K/uL Baso # (Auto) (0.0-0.2) K/uL Neutrophils % (Manual) (50-75) % Band Neutrophils % (0-2) % Lymphocytes % (Manual) (20-40) % Reactive Lymphs % (0-0) % Monocytes % (Manual) (0-10) % Basophils % (Manual) (0-2) % Platelet Estimate (NORMAL) Puncture Site pCO2 (35-45) mm/Hg pO2 (80-100) mm/Hg HCO3 (21-28) mmol/L ABG pH (7.35-7.45) ABG Total CO2 (22-28) mmol/L ABG O2 Saturation (95-98) % ABG Base Excess (-2.0-3.0) mmol/L Richard Test ABG Potassium (3.6-5.2) mmol/L Glucose (65-105) mg/dl Lactate (0.7-2.1) mmol/L Sodium (132-148) mmol/L Potassium (3.6-5.2) mmol/L Chloride (98-107) mmol/L Carbon Dioxide (22-30) mmol/L Anion Gap (10-20) BUN (7-17) mg/dL Creatinine (0.7-1.2) mg/dL Est GFR ( Amer) Est GFR (Non-Af Amer) POC Glucose (mg/dL) (65-110) mg/dL Random Glucose (65-105) mg/dL Serum Osmolality 304 H (272-300) mosm/kg Lactic Acid 2.4 H (0.7-2.1) mmol/L Calcium (8.6-10.4) mg/dl Phosphorus (2.5-4.5) mg/dL Magnesium (1.6-2.3) mg/dL Total Bilirubin (0.2-1.3) mg/dL AST (14-36) U/L ALT (9-52) U/L Alkaline Phosphatase (38-126) U/L Total Creatine Kinase 328 H (30-135) U/L Total Protein (6.3-8.3) g/dL Albumin (3.5-5.0) g/dL Globulin (2.2-3.9) gm/dL Albumin/Globulin Ratio (1.0-2.1) Procalcitonin (0.19-0.49) NG/ML Arterial Blood Potassium (3.6-5.2) mmol/L Urine Color (YELLOW) Urine Clarity (Clear) Urine pH (5.0-8.0) Ur Specific [place] (1.003-1.030) Urine Protein (NEGATIVE) mg/dL Urine Glucose (UA) (Normal) mg/dL Urine Ketones (NEGATIVE) mg/dL Urine Blood (NEGATIVE) Urine Nitrate (NEGATIVE) Urine Bilirubin (NEGATIVE) Urine Urobilinogen (0.2-1.0) mg/dL Ur Leukocyte Esterase (Negative) Orin/uL Urine WBC (Auto) (0-5) /hpf Urine RBC (Auto) (0-3) /hpf Ur Squamous Epith Cells (0-5) /hpf Urine Bacteria (<OCC) Urine Yeast (Budding) (NEGATIVE) /hpf Urine Eosinophils (NEGATIVE) Urine Osmolality (300-1000) mosm/kg Ur Random Creatinine mg/dL Ur Random Sodium mmol/L Hepatitis A IgM Ab (NEGATIVE) Hep Bs Antigen (NEGATIVE) Hep B Core IgM Ab (NEGATIVE) Hepatitis C Antibody (NEGATIVE) 12/17/17 12/17/17 12/17/17 Range/Units 12:37 12:37 12:37 WBC 7.5 (4.8-10.8) K/uL RBC 5.15 (3.80-5.20) Mil/uL Hgb 14.8 (11.0-16.0) g/dL Hct 45.2 (34.0-47.0) % MCV 87.8 (81.0-99.0) fL MCH 28.8 (27.0-31.0) pg MCHC 32.8 L (33.0-37.0) g/dL RDW 14.1 (11.5-14.5) % Plt Count 177 (130-400) K/uL MPV 10.9 (7.2-11.7) fL Neut % (Auto) 83.1 H (50.0-75.0) % Lymph % (Auto) 7.2 L (20.0-40.0) % [place] % (Auto) 9.6 (0.0-10.0) % Eos % (Auto) 0.0 (0.0-4.0) % Baso % (Auto) 0.1 (0.0-2.0) % Neut # (Auto) 6.2 (1.8-7.0) K/uL Lymph # (Auto) 0.5 L (1.0-4.3) K/uL [place] # (Auto) 0.7 (0.0-0.8) K/uL Eos # (Auto) 0.0 (0.0-0.7) K/uL Baso # (Auto) 0.0 (0.0-0.2) K/uL Neutrophils % (Manual) 40 L (50-75) % Band Neutrophils % 37 H* (0-2) % Lymphocytes % (Manual) 10 L (20-40) % Reactive Lymphs % (0-0) % Monocytes % (Manual) 12 H (0-10) % Basophils % (Manual) 1 (0-2) % Platelet Estimate Normal (NORMAL) Puncture Site pCO2 (35-45) mm/Hg pO2 (80-100) mm/Hg HCO3 (21-28) mmol/L ABG pH (7.35-7.45) ABG Total CO2 (22-28) mmol/L ABG O2 Saturation (95-98) % ABG Base Excess (-2.0-3.0) mmol/L Richard Test ABG Potassium (3.6-5.2) mmol/L Glucose (65-105) mg/dl Lactate (0.7-2.1) mmol/L Sodium 142 (132-148) mmol/L Potassium 4.7 (3.6-5.2) mmol/L Chloride 106 (98-107) mmol/L Carbon Dioxide 22 (22-30) mmol/L Anion Gap 19 (10-20) BUN 36 H (7-17) mg/dL Creatinine 2.3 H (0.7-1.2) mg/dL Est GFR ( Amer) 25 Est GFR (Non-Af Amer) 20 POC Glucose (mg/dL) (65-110) mg/dL Random Glucose 143 H (65-105) mg/dL Serum Osmolality (272-300) mosm/kg Lactic Acid (0.7-2.1) mmol/L Calcium 6.9 L (8.6-10.4) mg/dl Phosphorus 3.2 (2.5-4.5) mg/dL Magnesium 1.7 (1.6-2.3) mg/dL Total Bilirubin 1.6 H (0.2-1.3) mg/dL AST 103 H D (14-36) U/L ALT 126 H (9-52) U/L Alkaline Phosphatase 65 (38-126) U/L Total Creatine Kinase (30-135) U/L Total Protein 6.6 (6.3-8.3) g/dL Albumin 3.7 (3.5-5.0) g/dL Globulin 2.9 (2.2-3.9) gm/dL Albumin/Globulin Ratio 1.3 (1.0-2.1) Procalcitonin (0.19-0.49) NG/ML Arterial Blood Potassium (3.6-5.2) mmol/L Urine Color (YELLOW) Urine Clarity (Clear) Urine pH (5.0-8.0) Ur Specific [place] (1.003-1.030) Urine Protein (NEGATIVE) mg/dL Urine Glucose (UA) (Normal) mg/dL Urine Ketones (NEGATIVE) mg/dL Urine Blood (NEGATIVE) Urine Nitrate (NEGATIVE) Urine Bilirubin (NEGATIVE) Urine Urobilinogen (0.2-1.0) mg/dL Ur Leukocyte Esterase (Negative) Orin/uL Urine WBC (Auto) (0-5) /hpf Urine RBC (Auto) (0-3) /hpf Ur Squamous Epith Cells (0-5) /hpf Urine Bacteria (<OCC) Urine Yeast (Budding) (NEGATIVE) /hpf Urine Eosinophils (NEGATIVE) Urine Osmolality (300-1000) mosm/kg Ur Random Creatinine mg/dL Ur Random Sodium mmol/L Hepatitis A IgM Ab Negative (NEGATIVE) Hep Bs Antigen Negative (NEGATIVE) Hep B Core IgM Ab Negative (NEGATIVE) Hepatitis C Antibody Negative (NEGATIVE) 12/17/17 12/17/17 Range/Units 11:55 10:24 WBC (4.8-10.8) K/uL RBC (3.80-5.20) Mil/uL Hgb (11.0-16.0) g/dL Hct (34.0-47.0) % MCV (81.0-99.0) fL MCH (27.0-31.0) pg MCHC (33.0-37.0) g/dL RDW (11.5-14.5) % Plt Count (130-400) K/uL MPV (7.2-11.7) fL Neut % (Auto) (50.0-75.0) % Lymph % (Auto) (20.0-40.0) % [place] % (Auto) (0.0-10.0) % Eos % (Auto) (0.0-4.0) % Baso % (Auto) (0.0-2.0) % Neut # (Auto) (1.8-7.0) K/uL Lymph # (Auto) (1.0-4.3) K/uL [place] # (Auto) (0.0-0.8) K/uL Eos # (Auto) (0.0-0.7) K/uL Baso # (Auto) (0.0-0.2) K/uL Neutrophils % (Manual) (50-75) % Band Neutrophils % (0-2) % Lymphocytes % (Manual) (20-40) % Reactive Lymphs % (0-0) % Monocytes % (Manual) (0-10) % Basophils % (Manual) (0-2) % Platelet Estimate (NORMAL) Puncture Site pCO2 (35-45) mm/Hg pO2 (80-100) mm/Hg HCO3 (21-28) mmol/L ABG pH (7.35-7.45) ABG Total CO2 (22-28) mmol/L ABG O2 Saturation (95-98) % ABG Base Excess (-2.0-3.0) mmol/L Richard Test ABG Potassium (3.6-5.2) mmol/L Glucose (65-105) mg/dl Lactate (0.7-2.1) mmol/L Sodium (132-148) mmol/L Potassium (3.6-5.2) mmol/L Chloride (98-107) mmol/L Carbon Dioxide (22-30) mmol/L Anion Gap (10-20) BUN (7-17) mg/dL Creatinine (0.7-1.2) mg/dL Est GFR ( Amer) Est GFR (Non-Af Amer) POC Glucose (mg/dL) 157 H (65-110) mg/dL Random Glucose (65-105) mg/dL Serum Osmolality (272-300) mosm/kg Lactic Acid (0.7-2.1) mmol/L Calcium (8.6-10.4) mg/dl Phosphorus (2.5-4.5) mg/dL Magnesium (1.6-2.3) mg/dL Total Bilirubin (0.2-1.3) mg/dL AST (14-36) U/L ALT (9-52) U/L Alkaline Phosphatase (38-126) U/L Total Creatine Kinase (30-135) U/L Total Protein (6.3-8.3) g/dL Albumin (3.5-5.0) g/dL Globulin (2.2-3.9) gm/dL Albumin/Globulin Ratio (1.0-2.1) Procalcitonin 12.04 H (0.19-0.49) NG/ML Arterial Blood Potassium (3.6-5.2) mmol/L Urine Color (YELLOW) Urine Clarity (Clear) Urine pH (5.0-8.0) Ur Specific [place] (1.003-1.030) Urine Protein (NEGATIVE) mg/dL Urine Glucose (UA) (Normal) mg/dL Urine Ketones (NEGATIVE) mg/dL Urine Blood (NEGATIVE) Urine Nitrate (NEGATIVE) Urine Bilirubin (NEGATIVE) Urine Urobilinogen (0.2-1.0) mg/dL Ur Leukocyte Esterase (Negative) Orin/uL Urine WBC (Auto) (0-5) /hpf Urine RBC (Auto) (0-3) /hpf Ur Squamous Epith Cells (0-5) /hpf Urine Bacteria (<OCC) Urine Yeast (Budding) (NEGATIVE) /hpf Urine Eosinophils (NEGATIVE) Urine Osmolality (300-1000) mosm/kg Ur Random Creatinine mg/dL Ur Random Sodium mmol/L Hepatitis A IgM Ab (NEGATIVE) Hep Bs Antigen (NEGATIVE) Hep B Core IgM Ab (NEGATIVE) Hepatitis C Antibody (NEGATIVE) Laboratory Results - last 24 hr 12/17/17 12/17/17 12/17/17 10:24 11:55 12:37 WBC 7.5 RBC 5.15 Hgb 14.8 Hct 45.2 MCV 87.8 MCH 28.8 MCHC 32.8 L RDW 14.1 Plt Count 177 MPV 10.9 Neut % (Auto) 83.1 H Lymph % (Auto) 7.2 L [place] % (Auto) 9.6 Eos % (Auto) 0.0 Baso % (Auto) 0.1 Neut # (Auto) 6.2 Lymph # (Auto) 0.5 L [place] # (Auto) 0.7 Eos # (Auto) 0.0 Baso # (Auto) 0.0 Neutrophils % (Manual) 40 L Band Neutrophils % 37 H* Lymphocytes % (Manual) 10 L Reactive Lymphs % Monocytes % (Manual) 12 H Basophils % (Manual) 1 Platelet Estimate Normal Puncture Site pCO2 pO2 HCO3 ABG pH ABG Total CO2 ABG O2 Saturation ABG Base Excess Richard Test ABG Potassium Glucose Lactate Sodium Potassium Chloride Carbon Dioxide Anion Gap BUN Creatinine Est GFR ( Amer) Est GFR (Non-Af Amer) POC Glucose (mg/dL) 157 H Random Glucose Serum Osmolality Lactic Acid Calcium Phosphorus Magnesium Total Bilirubin AST ALT Alkaline Phosphatase Total Creatine Kinase Total Protein Albumin Globulin Albumin/Globulin Ratio Procalcitonin 12.04 H Arterial Blood Potassium Urine Color Urine Clarity Urine pH Ur Specific [place] Urine Protein Urine Glucose (UA) Urine Ketones Urine Blood Urine Nitrate Urine Bilirubin Urine Urobilinogen Ur Leukocyte Esterase Urine WBC (Auto) Urine RBC (Auto) Ur Squamous Epith Cells Urine Bacteria Urine Yeast (Budding) Urine Eosinophils Urine Osmolality Ur Random Creatinine Ur Random Sodium Hepatitis A IgM Ab Hep Bs Antigen Hep B Core IgM Ab Hepatitis C Antibody 12/17/17 12/17/17 12/17/17 12:37 12:37 14:16 WBC RBC Hgb Hct MCV MCH MCHC RDW Plt Count MPV Neut % (Auto) Lymph % (Auto) [place] % (Auto) Eos % (Auto) Baso % (Auto) Neut # (Auto) Lymph # (Auto) [place] # (Auto) Eos # (Auto) Baso # (Auto) Neutrophils % (Manual) Band Neutrophils % Lymphocytes % (Manual) Reactive Lymphs % Monocytes % (Manual) Basophils % (Manual) Platelet Estimate Puncture Site pCO2 pO2 HCO3 ABG pH ABG Total CO2 ABG O2 Saturation ABG Base Excess Richard Test ABG Potassium Glucose Lactate Sodium 142 Potassium 4.7 Chloride 106 Carbon Dioxide 22 Anion Gap 19 BUN 36 H Creatinine 2.3 H Est GFR ( Amer) 25 Est GFR (Non-Af Amer) 20 POC Glucose (mg/dL) Random Glucose 143 H Serum Osmolality Lactic Acid Calcium 6.9 L Phosphorus 3.2 Magnesium 1.7 Total Bilirubin 1.6 H AST 103 H D ALT 126 H Alkaline Phosphatase 65 Total Creatine Kinase 328 H Total Protein 6.6 Albumin 3.7 Globulin 2.9 Albumin/Globulin Ratio 1.3 Procalcitonin Arterial Blood Potassium Urine Color Urine Clarity Urine pH Ur Specific [place] Urine Protein Urine Glucose (UA) Urine Ketones Urine Blood Urine Nitrate Urine Bilirubin Urine Urobilinogen Ur Leukocyte Esterase Urine WBC (Auto) Urine RBC (Auto) Ur Squamous Epith Cells Urine Bacteria Urine Yeast (Budding) Urine Eosinophils Urine Osmolality Ur Random Creatinine Ur Random Sodium Hepatitis A IgM Ab Negative Hep Bs Antigen Negative Hep B Core IgM Ab Negative Hepatitis C Antibody Negative 12/17/17 12/17/17 12/17/17 14:16 14:16 16:05 WBC RBC Hgb Hct MCV MCH MCHC RDW Plt Count MPV Neut % (Auto) Lymph % (Auto) [place] % (Auto) Eos % (Auto) Baso % (Auto) Neut # (Auto) Lymph # (Auto) [place] # (Auto) Eos # (Auto) Baso # (Auto) Neutrophils % (Manual) Band Neutrophils % Lymphocytes % (Manual) Reactive Lymphs % Monocytes % (Manual) Basophils % (Manual) Platelet Estimate Puncture Site pCO2 pO2 HCO3 ABG pH ABG Total CO2 ABG O2 Saturation ABG Base Excess Richard Test ABG Potassium Glucose Lactate Sodium Potassium Chloride Carbon Dioxide Anion Gap BUN Creatinine Est GFR ( Amer) Est GFR (Non-Af Amer) POC Glucose (mg/dL) 150 H Random Glucose Serum Osmolality 304 H Lactic Acid 2.4 H Calcium Phosphorus Magnesium Total Bilirubin AST ALT Alkaline Phosphatase Total Creatine Kinase Total Protein Albumin Globulin Albumin/Globulin Ratio Procalcitonin Arterial Blood Potassium Urine Color Urine Clarity Urine pH Ur Specific [place] Urine Protein Urine Glucose (UA) Urine Ketones Urine Blood Urine Nitrate Urine Bilirubin Urine Urobilinogen Ur Leukocyte Esterase Urine WBC (Auto) Urine RBC (Auto) Ur Squamous Epith Cells Urine Bacteria Urine Yeast (Budding) Urine Eosinophils Urine Osmolality Ur Random Creatinine Ur Random Sodium Hepatitis A IgM Ab Hep Bs Antigen Hep B Core IgM Ab Hepatitis C Antibody 12/17/17 12/18/17 12/18/17 21:14 06:04 06:07 WBC 8.4 RBC 4.95 Hgb 14.2 Hct 43.5 MCV 87.9 MCH 28.7 MCHC 32.7 L RDW 14.2 Plt Count 175 MPV 11.7 Neut % (Auto) 84.0 H Lymph % (Auto) 9.0 L [place] % (Auto) 6.9 Eos % (Auto) 0.0 Baso % (Auto) 0.1 Neut # (Auto) 7.0 Lymph # (Auto) 0.8 L [place] # (Auto) 0.6 Eos # (Auto) 0.0 Baso # (Auto) 0.0 Neutrophils % (Manual) 24 L Band Neutrophils % 61 H* Lymphocytes % (Manual) 12 L Reactive Lymphs % 2 H Monocytes % (Manual) 1 Basophils % (Manual) Platelet Estimate Normal Puncture Site pCO2 pO2 HCO3 ABG pH ABG Total CO2 ABG O2 Saturation ABG Base Excess Richard Test ABG Potassium Glucose Lactate Sodium 140 Potassium 4.7 Chloride 110 H Carbon Dioxide 14 L Anion Gap 21 H BUN 56 H Creatinine 3.7 H Est GFR ( Amer) 14 Est GFR (Non-Af Amer) 12 POC Glucose (mg/dL) 129 H Random Glucose 134 H Serum Osmolality Lactic Acid Calcium 5.6 L* Phosphorus 2.9 Magnesium 1.7 Total Bilirubin 1.1 AST 60 H D ALT 85 H D Alkaline Phosphatase 45 Total Creatine Kinase Total Protein 6.2 L Albumin 3.2 L Globulin 3.0 Albumin/Globulin Ratio 1.1 Procalcitonin Arterial Blood Potassium Urine Color Urine Clarity Urine pH Ur Specific [place] Urine Protein Urine Glucose (UA) Urine Ketones Urine Blood Urine Nitrate Urine Bilirubin Urine Urobilinogen Ur Leukocyte Esterase Urine WBC (Auto) Urine RBC (Auto) Ur Squamous Epith Cells Urine Bacteria Urine Yeast (Budding) Urine Eosinophils Urine Osmolality Ur Random Creatinine Ur Random Sodium Hepatitis A IgM Ab Hep Bs Antigen Hep B Core IgM Ab Hepatitis C Antibody 12/18/17 12/18/17 12/18/17 07:14 08:27 08:27 WBC RBC Hgb Hct MCV MCH MCHC RDW Plt Count MPV Neut % (Auto) Lymph % (Auto) [place] % (Auto) Eos % (Auto) Baso % (Auto) Neut # (Auto) Lymph # (Auto) [place] # (Auto) Eos # (Auto) Baso # (Auto) Neutrophils % (Manual) Band Neutrophils % Lymphocytes % (Manual) Reactive Lymphs % Monocytes % (Manual) Basophils % (Manual) Platelet Estimate Puncture Site pCO2 pO2 HCO3 ABG pH ABG Total CO2 ABG O2 Saturation ABG Base Excess Richard Test ABG Potassium Glucose Lactate Sodium Potassium Chloride Carbon Dioxide Anion Gap BUN Creatinine Est GFR ( Amer) Est GFR (Non-Af Amer) POC Glucose (mg/dL) 131 H Random Glucose Serum Osmolality Lactic Acid Calcium Phosphorus Magnesium Total Bilirubin AST ALT Alkaline Phosphatase Total Creatine Kinase Total Protein Albumin Globulin Albumin/Globulin Ratio Procalcitonin Arterial Blood Potassium Urine Color Urine Clarity Urine pH Ur Specific [place] Urine Protein Urine Glucose (UA) Urine Ketones Urine Blood Urine Nitrate Urine Bilirubin Urine Urobilinogen Ur Leukocyte Esterase Urine WBC (Auto) Urine RBC (Auto) Ur Squamous Epith Cells Urine Bacteria Urine Yeast (Budding) Urine Eosinophils Negative Urine Osmolality 549 Ur Random Creatinine 105.8 Ur Random Sodium 126 Hepatitis A IgM Ab Hep Bs Antigen Hep B Core IgM Ab Hepatitis C Antibody 12/18/17 12/18/17 08:27 08:45 WBC RBC Hgb Hct MCV MCH MCHC RDW Plt Count MPV Neut % (Auto) Lymph % (Auto) [place] % (Auto) Eos % (Auto) Baso % (Auto) Neut # (Auto) Lymph # (Auto) [place] # (Auto) Eos # (Auto) Baso # (Auto) Neutrophils % (Manual) Band Neutrophils % Lymphocytes % (Manual) Reactive Lymphs % Monocytes % (Manual) Basophils % (Manual) Platelet Estimate Puncture Site Rra pCO2 31 L pO2 73 L HCO3 17.9 L ABG pH 7.32 L ABG Total CO2 17.0 L ABG O2 Saturation 96.7 ABG Base Excess -8.9 L Richard Test Pos ABG Potassium 4.3 Glucose 140 H Lactate 1.7 Sodium 138.0 Potassium Chloride 109.0 H Carbon Dioxide Anion Gap BUN Creatinine Est GFR ( Amer) Est GFR (Non-Af Amer) POC Glucose (mg/dL) Random Glucose Serum Osmolality Lactic Acid Calcium Phosphorus Magnesium Total Bilirubin AST ALT Alkaline Phosphatase Total Creatine Kinase Total Protein Albumin Globulin Albumin/Globulin Ratio Procalcitonin Arterial Blood Potassium 4.3 Urine Color Annetta Urine Clarity Hazy Urine pH 5.0 Ur Specific [place] 1.020 Urine Protein 1+ H Urine Glucose (UA) 1+ Urine Ketones Trace Urine Blood Negative Urine Nitrate Negative Urine Bilirubin Negative Urine Urobilinogen Normal Ur Leukocyte Esterase Neg Urine WBC (Auto) 3 Urine RBC (Auto) 5 H Ur Squamous Epith Cells < 1 Urine Bacteria Rare Urine Yeast (Budding) Few H Urine Eosinophils Urine Osmolality Ur Random Creatinine Ur Random Sodium Hepatitis A IgM Ab Hep Bs Antigen Hep B Core IgM Ab Hepatitis C Antibody Fingerstick Blood Sugar Results: 131 Critical Care Progress Note - Nutrition Nutrition: Nutrition Category Date Time Status NPO Diet [DIET] Diets 12/16/17 Breakfast Active Assessment/Plan - Assessment and Plan (Free Text) Assessment: This is a 77yo female with history of hypertension, COPD, breast cancer s/p lumpectomy that presented to same day 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 During the procedure, patient experienced a significant amount of bleeding which was treated with a combination of clipping , electrocautery and epinephrine. Bleeding was significantly reduced however patient was subsequently admitted to ICU for close observation. She had underwent EGD/Colonoscopy on 12/05/17 due to worsening reflux symptoms with progressive substernal burning that started approximately 2 months prior. At that time, EGD/Colonsocopy was significant for duodenal nodule that was biopsied and revealed well differentiated neuroendocrine tumor. Patient was admitted to ICU due to SBP 220/140s initially on cardene drip x 1 - 2 hours- now normotensive; patient now in ATN with CRE of 3.7, bandemia with elevated procal, lactate initially 2.4 now 1.7. Patient is for OR today 2/2 increasing free air noted on repeat CT scan. 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 Alatorre - Previous hemorrhage - stabilized with a combination of clipping, electrocautery and epinephrine. - Started on PPI drip, IVF - Zosyn as per GI switched to Merro 500MG Q12 (renal dose) 12/18/17 - Ct chest, abdomen, pelvis 2/2 abdominal pain and guarding on exam: Mild increase in the extent of pneumoperitoneum. Increasing ascites. Extensive gas adjacent to 2nd duodenum and ansim hepatis. Status post cholecystectomy. Nasogastric tube. Fluid in retroperitoneum and gas in perinephric space on right side. Cannot rule out pancreatitis. Please correlate. Trace right pleural effusion. No pulmonary infiltrate. - Upper GI series - Free air noted - As per surgery patient is for OR due to increasing free air A: Pancreatic nodule - Questionable 9 mm rounded fluid density mass in the pancreatic body. This was not clearly appreciated on prior CT examination of 12/16/2017. Further evaluation is advised when clinically feasible with multiphasic contrast- enhanced CT. A: Transaminitis, Elevated T. Bili - downtrending - Viral hepatitis - negative - Abominal US - Diffuse increased echogenicity in the liver may reflect hepatic steatosis however parenchymal infectious/ inflammatory etiologies cannot be entirely excluded. Clinical and laboratory correlation is advised. Mild perihepatic ascites. Endo: A: Thyroid Nodule - There is a 1.9 cm mass in the lower pole of the left thyroid lobe. - Correlate with thyroid ultrasound examination. A: IGT - HgA1c 5.9 Renal: A: ATN - 2/2 to fluctuation in BP? ABX? - Abdominal US- no sign of renal obstruction - Changed zosyn to Merro renally dosed - Fluid bolused 1L - Inserted bruce - minimal urine output ID: A: Bandemia - Afebrile, vitals stable, no leukocytosis, no source of infection - Patient was prince-cultured 12/17/17 - Bandemia increasing- 61, Procal - 12.04, lactate 2.4--> 1.7 - Changed zosyn to Meropenem renally dosed Heme/ Onc: A: Hx breast cancer s/p lumpectomy Protonix - Protonix Drip - SCDs, VTE c/i post op / concern for bleeding DW Dr. Shelton, Estefania Veliz DO, PGY-1 <Delgado Shelton S - Last Filed: 12/18/17 17:36> CCU Objective - Vital Signs / Intake & Output Intake and Output (Last 8hrs): Intake & Output 12/18/17 12/18/17 12/18/17 06:59 14:59 22:59 Intake Total 1115 1610 Output Total 300 245 Balance 815 1365 Weight 232 lb 8 oz Intake: IV 0 Intake, IV Amount 1115 1610 Left Distal Port Hand 60 Left Hand 125 1550 Right Antecubital 90 Rt AC 900 Output: Gastric Amount 50 Left Nares 50 Urine 250 245 Urethral (Bruce) 245 Urine, Voided 250 Other: # Bowel Movements 0 - Medications Active Medications: Active Medications Generic Name Dose Route Start Last Admin Trade Name Freq PRN Reason Stop Dose Admin Albuterol/Ipratropium 3 ml 12/16/17 12:03 12/16/17 14:24 Duoneb 3 Mg/0.5 Mg (3 Ml) Ud INH 3 ml RQ4 PRN Administration Shortness of Breath Dextrose 0 ml 12/16/17 12:08 Dextrose 50% Inj IV STAT PRN Hypoglycemia Protocol Protocol Dextrose 15 gm 12/16/17 12:08 Glutose 15 PO ONCE PRN Hypoglycemia Protocol Protocol Glucagon 1 mg 12/16/17 12:08 Glucagen Diagnostic Kit IM STAT PRN Hypoglycemia Protocol Protocol Hydralazine HCl 10 mg 12/17/17 12:05 Apresoline IVP Q6H PRN Systolic Blood Pressure Hydromorphone HCl 0.5 mg 12/17/17 09:53 12/18/17 13:04 Dilaudid IVP 0.5 mg Q4H PRN Administration Pain, severe (8-10) Sodium Chloride 1,000 mls @ 100 mls/hr 12/16/17 09:30 12/18/17 12:16 Sodium Chloride 0.9% IV Not Given .Q10H FESTUS Pantoprazole Sodium 80 mg/ 100 mls @ 10 mls/hr 12/16/17 09:35 12/18/17 13:38 Sodium Chloride IV 10 mls/hr .Q10H FESTUS Administration 8 MG/HR Dextrose 1,000 mls @ 0 mls/hr 12/16/17 12:08 Dextrose 5% In Water 1000 Ml IV .Q0M PRN Hypoglycemia Protocol Protocol Per Protocol Meropenem 500 mg/ Sodium 100 mls @ 100 mls/hr 12/18/17 10:00 12/18/17 11:49 Chloride IVPB 100 mls/hr Q12 FESTUS Administration Protocol BUPIVACAINE 0.125%/0.9% NACL 600 mls @ 4 mls/hr 12/18/17 16:00 Bupivacaine-Ns 0.125% On-Q Cargo Bracer IJ 12/24/17 21:59 ONCE ONE Insulin Human Regular 0 unit 12/16/17 16:30 12/18/17 12:15 Novolin R SC Not Given ACHS FESTUS Protocol - Patient Studies Lab Studies: Microbiology Studies 12/17/17 16:00 Blood Culture - Preliminary Blood-Venous NO GROWTH AFTER 24 HOURS 12/17/17 16:40 Blood Culture - Preliminary Blood-Venous NO GROWTH AFTER 24 HOURS Lab Studies 12/18/17 12/18/17 12/18/17 Range/Units 12:39 11:34 08:45 WBC (4.8-10.8) K/uL RBC (3.80-5.20) Mil/uL Hgb (11.0-16.0) g/dL Hct (34.0-47.0) % MCV (81.0-99.0) fL MCH (27.0-31.0) pg MCHC (33.0-37.0) g/dL RDW (11.5-14.5) % Plt Count (130-400) K/uL MPV (7.2-11.7) fL Neut % (Auto) (50.0-75.0) % Lymph % (Auto) (20.0-40.0) % [place] % (Auto) (0.0-10.0) % Eos % (Auto) (0.0-4.0) % Baso % (Auto) (0.0-2.0) % Neut # (Auto) (1.8-7.0) K/uL Lymph # (Auto) (1.0-4.3) K/uL [place] # (Auto) (0.0-0.8) K/uL Eos # (Auto) (0.0-0.7) K/uL Baso # (Auto) (0.0-0.2) K/uL Neutrophils % (Manual) (50-75) % Band Neutrophils % (0-2) % Lymphocytes % (Manual) (20-40) % Reactive Lymphs % (0-0) % Monocytes % (Manual) (0-10) % Platelet Estimate (NORMAL) PT 15.9 H (9.7-12.2) SECONDS INR 1.5 APTT 40 H (21-34) SECONDS Puncture Site Rra pCO2 31 L (35-45) mm/Hg pO2 73 L (80-100) mm/Hg HCO3 17.9 L (21-28) mmol/L ABG pH 7.32 L (7.35-7.45) ABG Total CO2 17.0 L (22-28) mmol/L ABG O2 Saturation 96.7 (95-98) % ABG Base Excess -8.9 L (-2.0-3.0) mmol/L Richard Test Pos ABG Potassium 4.3 (3.6-5.2) mmol/L Glucose 140 H (65-105) mg/dl Lactate 1.7 (0.7-2.1) mmol/L Sodium 138.0 (132-148) mmol/L Potassium (3.6-5.2) mmol/L Chloride 109.0 H (98-107) mmol/L Carbon Dioxide (22-30) mmol/L Anion Gap (10-20) BUN (7-17) mg/dL Creatinine (0.7-1.2) mg/dL Est GFR ( Amer) Est GFR (Non-Af Amer) POC Glucose (mg/dL) 130 H (65-110) mg/dL Random Glucose (65-105) mg/dL Calcium (8.6-10.4) mg/dl Phosphorus (2.5-4.5) mg/dL Magnesium (1.6-2.3) mg/dL Total Bilirubin (0.2-1.3) mg/dL AST (14-36) U/L ALT (9-52) U/L Alkaline Phosphatase (38-126) U/L Total Protein (6.3-8.3) g/dL Albumin (3.5-5.0) g/dL Globulin (2.2-3.9) gm/dL Albumin/Globulin Ratio (1.0-2.1) Arterial Blood Potassium 4.3 (3.6-5.2) mmol/L Urine Color (YELLOW) Urine Clarity (Clear) Urine pH (5.0-8.0) Ur Specific [place] (1.003-1.030) Urine Protein (NEGATIVE) mg/dL Urine Glucose (UA) (Normal) mg/dL Urine Ketones (NEGATIVE) mg/dL Urine Blood (NEGATIVE) Urine Nitrate (NEGATIVE) Urine Bilirubin (NEGATIVE) Urine Urobilinogen (0.2-1.0) mg/dL Ur Leukocyte Esterase (Negative) Orin/uL Urine WBC (Auto) (0-5) /hpf Urine RBC (Auto) (0-3) /hpf Ur Squamous Epith Cells (0-5) /hpf Urine Bacteria (<OCC) Urine Yeast (Budding) (NEGATIVE) /hpf Urine Eosinophils (NEGATIVE) Urine Osmolality (300-1000) mosm/kg Ur Random Creatinine mg/dL Ur Random Sodium mmol/L 12/18/17 12/18/17 12/18/17 Range/Units 08:27 08:27 08:27 WBC (4.8-10.8) K/uL RBC (3.80-5.20) Mil/uL Hgb (11.0-16.0) g/dL Hct (34.0-47.0) % MCV (81.0-99.0) fL MCH (27.0-31.0) pg MCHC (33.0-37.0) g/dL RDW (11.5-14.5) % Plt Count (130-400) K/uL MPV (7.2-11.7) fL Neut % (Auto) (50.0-75.0) % Lymph % (Auto) (20.0-40.0) % [place] % (Auto) (0.0-10.0) % Eos % (Auto) (0.0-4.0) % Baso % (Auto) (0.0-2.0) % Neut # (Auto) (1.8-7.0) K/uL Lymph # (Auto) (1.0-4.3) K/uL [place] # (Auto) (0.0-0.8) K/uL Eos # (Auto) (0.0-0.7) K/uL Baso # (Auto) (0.0-0.2) K/uL Neutrophils % (Manual) (50-75) % Band Neutrophils % (0-2) % Lymphocytes % (Manual) (20-40) % Reactive Lymphs % (0-0) % Monocytes % (Manual) (0-10) % Platelet Estimate (NORMAL) PT (9.7-12.2) SECONDS INR APTT (21-34) SECONDS Puncture Site pCO2 (35-45) mm/Hg pO2 (80-100) mm/Hg HCO3 (21-28) mmol/L ABG pH (7.35-7.45) ABG Total CO2 (22-28) mmol/L ABG O2 Saturation (95-98) % ABG Base Excess (-2.0-3.0) mmol/L Richard Test ABG Potassium (3.6-5.2) mmol/L Glucose (65-105) mg/dl Lactate (0.7-2.1) mmol/L Sodium (132-148) mmol/L Potassium (3.6-5.2) mmol/L Chloride (98-107) mmol/L Carbon Dioxide (22-30) mmol/L Anion Gap (10-20) BUN (7-17) mg/dL Creatinine (0.7-1.2) mg/dL Est GFR ( Amer) Est GFR (Non-Af Amer) POC Glucose (mg/dL) (65-110) mg/dL Random Glucose (65-105) mg/dL Calcium (8.6-10.4) mg/dl Phosphorus (2.5-4.5) mg/dL Magnesium (1.6-2.3) mg/dL Total Bilirubin (0.2-1.3) mg/dL AST (14-36) U/L ALT (9-52) U/L Alkaline Phosphatase (38-126) U/L Total Protein (6.3-8.3) g/dL Albumin (3.5-5.0) g/dL Globulin (2.2-3.9) gm/dL Albumin/Globulin Ratio (1.0-2.1) Arterial Blood Potassium (3.6-5.2) mmol/L Urine Color [place] (YELLOW) Urine Clarity Hazy (Clear) Urine pH 5.0 (5.0-8.0) Ur Specific [place] 1.020 (1.003-1.030) Urine Protein 1+ H (NEGATIVE) mg/dL Urine Glucose (UA) 1+ (Normal) mg/dL Urine Ketones Trace (NEGATIVE) mg/dL Urine Blood Negative (NEGATIVE) Urine Nitrate Negative (NEGATIVE) Urine Bilirubin Negative (NEGATIVE) Urine Urobilinogen Normal (0.2-1.0) mg/dL Ur Leukocyte Esterase Neg (Negative) Orin/uL Urine WBC (Auto) 3 (0-5) /hpf Urine RBC (Auto) 5 H (0-3) /hpf Ur Squamous Epith Cells < 1 (0-5) /hpf Urine Bacteria Rare (<OCC) Urine Yeast (Budding) Few H (NEGATIVE) /hpf Urine Eosinophils Negative (NEGATIVE) Urine Osmolality 549 (300-1000) mosm/kg Ur Random Creatinine 105.8 mg/dL Ur Random Sodium 126 mmol/L 12/18/17 12/18/17 12/18/17 Range/Units 07:14 06:07 06:04 WBC 8.4 (4.8-10.8) K/uL RBC 4.95 (3.80-5.20) Mil/uL Hgb 14.2 (11.0-16.0) g/dL Hct 43.5 (34.0-47.0) % MCV 87.9 (81.0-99.0) fL MCH 28.7 (27.0-31.0) pg MCHC 32.7 L (33.0-37.0) g/dL RDW 14.2 (11.5-14.5) % Plt Count 175 (130-400) K/uL MPV 11.7 (7.2-11.7) fL Neut % (Auto) 84.0 H (50.0-75.0) % Lymph % (Auto) 9.0 L (20.0-40.0) % [place] % (Auto) 6.9 (0.0-10.0) % Eos % (Auto) 0.0 (0.0-4.0) % Baso % (Auto) 0.1 (0.0-2.0) % Neut # (Auto) 7.0 (1.8-7.0) K/uL Lymph # (Auto) 0.8 L (1.0-4.3) K/uL [place] # (Auto) 0.6 (0.0-0.8) K/uL Eos # (Auto) 0.0 (0.0-0.7) K/uL Baso # (Auto) 0.0 (0.0-0.2) K/uL Neutrophils % (Manual) 24 L (50-75) % Band Neutrophils % 61 H* (0-2) % Lymphocytes % (Manual) 12 L (20-40) % Reactive Lymphs % 2 H (0-0) % Monocytes % (Manual) 1 (0-10) % Platelet Estimate Normal (NORMAL) PT (9.7-12.2) SECONDS INR APTT (21-34) SECONDS Puncture Site pCO2 (35-45) mm/Hg pO2 (80-100) mm/Hg HCO3 (21-28) mmol/L ABG pH (7.35-7.45) ABG Total CO2 (22-28) mmol/L ABG O2 Saturation (95-98) % ABG Base Excess (-2.0-3.0) mmol/L Richard Test ABG Potassium (3.6-5.2) mmol/L Glucose (65-105) mg/dl Lactate (0.7-2.1) mmol/L Sodium 140 (132-148) mmol/L Potassium 4.7 (3.6-5.2) mmol/L Chloride 110 H (98-107) mmol/L Carbon Dioxide 14 L (22-30) mmol/L Anion Gap 21 H (10-20) BUN 56 H (7-17) mg/dL Creatinine 3.7 H (0.7-1.2) mg/dL Est GFR ( Amer) 14 Est GFR (Non-Af Amer) 12 POC Glucose (mg/dL) 131 H (65-110) mg/dL Random Glucose 134 H (65-105) mg/dL Calcium 5.6 L* (8.6-10.4) mg/dl Phosphorus 2.9 (2.5-4.5) mg/dL Magnesium 1.7 (1.6-2.3) mg/dL Total Bilirubin 1.1 (0.2-1.3) mg/dL AST 60 H D (14-36) U/L ALT 85 H D (9-52) U/L Alkaline Phosphatase 45 (38-126) U/L Total Protein 6.2 L (6.3-8.3) g/dL Albumin 3.2 L (3.5-5.0) g/dL Globulin 3.0 (2.2-3.9) gm/dL Albumin/Globulin Ratio 1.1 (1.0-2.1) Arterial Blood Potassium (3.6-5.2) mmol/L Urine Color (YELLOW) Urine Clarity (Clear) Urine pH (5.0-8.0) Ur Specific [place] (1.003-1.030) Urine Protein (NEGATIVE) mg/dL Urine Glucose (UA) (Normal) mg/dL Urine Ketones (NEGATIVE) mg/dL Urine Blood (NEGATIVE) Urine Nitrate (NEGATIVE) Urine Bilirubin (NEGATIVE) Urine Urobilinogen (0.2-1.0) mg/dL Ur Leukocyte Esterase (Negative) Orin/uL Urine WBC (Auto) (0-5) /hpf Urine RBC (Auto) (0-3) /hpf Ur Squamous Epith Cells (0-5) /hpf Urine Bacteria (<OCC) Urine Yeast (Budding) (NEGATIVE) /hpf Urine Eosinophils (NEGATIVE) Urine Osmolality (300-1000) mosm/kg Ur Random Creatinine mg/dL Ur Random Sodium mmol/L 12/17/17 Range/Units 21:14 WBC (4.8-10.8) K/uL RBC (3.80-5.20) Mil/uL Hgb (11.0-16.0) g/dL Hct (34.0-47.0) % MCV (81.0-99.0) fL MCH (27.0-31.0) pg MCHC (33.0-37.0) g/dL RDW (11.5-14.5) % Plt Count (130-400) K/uL MPV (7.2-11.7) fL Neut % (Auto) (50.0-75.0) % Lymph % (Auto) (20.0-40.0) % [place] % (Auto) (0.0-10.0) % Eos % (Auto) (0.0-4.0) % Baso % (Auto) (0.0-2.0) % Neut # (Auto) (1.8-7.0) K/uL Lymph # (Auto) (1.0-4.3) K/uL [place] # (Auto) (0.0-0.8) K/uL Eos # (Auto) (0.0-0.7) K/uL Baso # (Auto) (0.0-0.2) K/uL Neutrophils % (Manual) (50-75) % Band Neutrophils % (0-2) % Lymphocytes % (Manual) (20-40) % Reactive Lymphs % (0-0) % Monocytes % (Manual) (0-10) % Platelet Estimate (NORMAL) PT (9.7-12.2) SECONDS INR APTT (21-34) SECONDS Puncture Site pCO2 (35-45) mm/Hg pO2 (80-100) mm/Hg HCO3 (21-28) mmol/L ABG pH (7.35-7.45) ABG Total CO2 (22-28) mmol/L ABG O2 Saturation (95-98) % ABG Base Excess (-2.0-3.0) mmol/L Richard Test ABG Potassium (3.6-5.2) mmol/L Glucose (65-105) mg/dl Lactate (0.7-2.1) mmol/L Sodium (132-148) mmol/L Potassium (3.6-5.2) mmol/L Chloride (98-107) mmol/L Carbon Dioxide (22-30) mmol/L Anion Gap (10-20) BUN (7-17) mg/dL Creatinine (0.7-1.2) mg/dL Est GFR ( Amer) Est GFR (Non-Af Amer) POC Glucose (mg/dL) 129 H (65-110) mg/dL Random Glucose (65-105) mg/dL Calcium (8.6-10.4) mg/dl Phosphorus (2.5-4.5) mg/dL Magnesium (1.6-2.3) mg/dL Total Bilirubin (0.2-1.3) mg/dL AST (14-36) U/L ALT (9-52) U/L Alkaline Phosphatase (38-126) U/L Total Protein (6.3-8.3) g/dL Albumin (3.5-5.0) g/dL Globulin (2.2-3.9) gm/dL Albumin/Globulin Ratio (1.0-2.1) Arterial Blood Potassium (3.6-5.2) mmol/L Urine Color (YELLOW) Urine Clarity (Clear) Urine pH (5.0-8.0) Ur Specific [place] (1.003-1.030) Urine Protein (NEGATIVE) mg/dL Urine Glucose (UA) (Normal) mg/dL Urine Ketones (NEGATIVE) mg/dL Urine Blood (NEGATIVE) Urine Nitrate (NEGATIVE) Urine Bilirubin (NEGATIVE) Urine Urobilinogen (0.2-1.0) mg/dL Ur Leukocyte Esterase (Negative) Orin/uL Urine WBC (Auto) (0-5) /hpf Urine RBC (Auto) (0-3) /hpf Ur Squamous Epith Cells (0-5) /hpf Urine Bacteria (<OCC) Urine Yeast (Budding) (NEGATIVE) /hpf Urine Eosinophils (NEGATIVE) Urine Osmolality (300-1000) mosm/kg Ur Random Creatinine mg/dL Ur Random Sodium mmol/L Laboratory Results - last 24 hr 12/17/17 12/18/17 12/18/17 21:14 06:04 06:07 WBC 8.4 RBC 4.95 Hgb 14.2 Hct 43.5 MCV 87.9 MCH 28.7 MCHC 32.7 L RDW 14.2 Plt Count 175 MPV 11.7 Neut % (Auto) 84.0 H Lymph % (Auto) 9.0 L [place] % (Auto) 6.9 Eos % (Auto) 0.0 Baso % (Auto) 0.1 Neut # (Auto) 7.0 Lymph # (Auto) 0.8 L [place] # (Auto) 0.6 Eos # (Auto) 0.0 Baso # (Auto) 0.0 Neutrophils % (Manual) 24 L Band Neutrophils % 61 H* Lymphocytes % (Manual) 12 L Reactive Lymphs % 2 H Monocytes % (Manual) 1 Platelet Estimate Normal PT INR APTT Puncture Site pCO2 pO2 HCO3 ABG pH ABG Total CO2 ABG O2 Saturation ABG Base Excess Richard Test ABG Potassium Glucose Lactate Sodium 140 Potassium 4.7 Chloride 110 H Carbon Dioxide 14 L Anion Gap 21 H BUN 56 H Creatinine 3.7 H Est GFR ( Amer) 14 Est GFR (Non-Af Amer) 12 POC Glucose (mg/dL) 129 H Random Glucose 134 H Calcium 5.6 L* Phosphorus 2.9 Magnesium 1.7 Total Bilirubin 1.1 AST 60 H D ALT 85 H D Alkaline Phosphatase 45 Total Protein 6.2 L Albumin 3.2 L Globulin 3.0 Albumin/Globulin Ratio 1.1 Arterial Blood Potassium Urine Color Urine Clarity Urine pH Ur Specific [place] Urine Protein Urine Glucose (UA) Urine Ketones Urine Blood Urine Nitrate Urine Bilirubin Urine Urobilinogen Ur Leukocyte Esterase Urine WBC (Auto) Urine RBC (Auto) Ur Squamous Epith Cells Urine Bacteria Urine Yeast (Budding) Urine Eosinophils Urine Osmolality Ur Random Creatinine Ur Random Sodium 12/18/17 12/18/17 12/18/17 07:14 08:27 08:27 WBC RBC Hgb Hct MCV MCH MCHC RDW Plt Count MPV Neut % (Auto) Lymph % (Auto) [place] % (Auto) Eos % (Auto) Baso % (Auto) Neut # (Auto) Lymph # (Auto) [place] # (Auto) Eos # (Auto) Baso # (Auto) Neutrophils % (Manual) Band Neutrophils % Lymphocytes % (Manual) Reactive Lymphs % Monocytes % (Manual) Platelet Estimate PT INR APTT Puncture Site pCO2 pO2 HCO3 ABG pH ABG Total CO2 ABG O2 Saturation ABG Base Excess Richard Test ABG Potassium Glucose Lactate Sodium Potassium Chloride Carbon Dioxide Anion Gap BUN Creatinine Est GFR ( Amer) Est GFR (Non-Af Amer) POC Glucose (mg/dL) 131 H Random Glucose Calcium Phosphorus Magnesium Total Bilirubin AST ALT Alkaline Phosphatase Total Protein Albumin Globulin Albumin/Globulin Ratio Arterial Blood Potassium Urine Color Urine Clarity Urine pH Ur Specific [place] Urine Protein Urine Glucose (UA) Urine Ketones Urine Blood Urine Nitrate Urine Bilirubin Urine Urobilinogen Ur Leukocyte Esterase Urine WBC (Auto) Urine RBC (Auto) Ur Squamous Epith Cells Urine Bacteria Urine Yeast (Budding) Urine Eosinophils Negative Urine Osmolality 549 Ur Random Creatinine 105.8 Ur Random Sodium 126 12/18/17 12/18/17 12/18/17 08:27 08:45 11:34 WBC RBC Hgb Hct MCV MCH MCHC RDW Plt Count MPV Neut % (Auto) Lymph % (Auto) [place] % (Auto) Eos % (Auto) Baso % (Auto) Neut # (Auto) Lymph # (Auto) [place] # (Auto) Eos # (Auto) Baso # (Auto) Neutrophils % (Manual) Band Neutrophils % Lymphocytes % (Manual) Reactive Lymphs % Monocytes % (Manual) Platelet Estimate PT INR APTT Puncture Site Rra pCO2 31 L pO2 73 L HCO3 17.9 L ABG pH 7.32 L ABG Total CO2 17.0 L ABG O2 Saturation 96.7 ABG Base Excess -8.9 L Richard Test Pos ABG Potassium 4.3 Glucose 140 H Lactate 1.7 Sodium 138.0 Potassium Chloride 109.0 H Carbon Dioxide Anion Gap BUN Creatinine Est GFR ( Amer) Est GFR (Non-Af Amer) POC Glucose (mg/dL) 130 H Random Glucose Calcium Phosphorus Magnesium Total Bilirubin AST ALT Alkaline Phosphatase Total Protein Albumin Globulin Albumin/Globulin Ratio Arterial Blood Potassium 4.3 Urine Color [place] Urine Clarity Hazy Urine pH 5.0 Ur Specific [place] 1.020 Urine Protein 1+ H Urine Glucose (UA) 1+ Urine Ketones Trace Urine Blood Negative Urine Nitrate Negative Urine Bilirubin Negative Urine Urobilinogen Normal Ur Leukocyte Esterase Neg Urine WBC (Auto) 3 Urine RBC (Auto) 5 H Ur Squamous Epith Cells < 1 Urine Bacteria Rare Urine Yeast (Budding) Few H Urine Eosinophils Urine Osmolality Ur Random Creatinine Ur Random Sodium 12/18/17 12:39 WBC RBC Hgb Hct MCV MCH MCHC RDW Plt Count MPV Neut % (Auto) Lymph % (Auto) [place] % (Auto) Eos % (Auto) Baso % (Auto) Neut # (Auto) Lymph # (Auto) [place] # (Auto) Eos # (Auto) Baso # (Auto) Neutrophils % (Manual) Band Neutrophils % Lymphocytes % (Manual) Reactive Lymphs % Monocytes % (Manual) Platelet Estimate PT 15.9 H INR 1.5 APTT 40 H Puncture Site pCO2 pO2 HCO3 ABG pH ABG Total CO2 ABG O2 Saturation ABG Base Excess Richard Test ABG Potassium Glucose Lactate Sodium Potassium Chloride Carbon Dioxide Anion Gap BUN Creatinine Est GFR ( Amer) Est GFR (Non-Af Amer) POC Glucose (mg/dL) Random Glucose Calcium Phosphorus Magnesium Total Bilirubin AST ALT Alkaline Phosphatase Total Protein Albumin Globulin Albumin/Globulin Ratio Arterial Blood Potassium Urine Color Urine Clarity Urine pH Ur Specific [place] Urine Protein Urine Glucose (UA) Urine Ketones Urine Blood Urine Nitrate Urine Bilirubin Urine Urobilinogen Ur Leukocyte Esterase Urine WBC (Auto) Urine RBC (Auto) Ur Squamous Epith Cells Urine Bacteria Urine Yeast (Budding) Urine Eosinophils Urine Osmolality Ur Random Creatinine Ur Random Sodium EKG/Cardiology Studies: Cardiology / EKG Studies 12/18/17 12:21 EKG [ELECTROCARDIOGRAM] Stat Comment: Mode Of Transportation: Reason For Exam: preop Critical Care Progress Note - Nutrition Nutrition: Nutrition Category Date Time Status NPO Diet [DIET] Diets 12/16/17 Breakfast Active Attending/Attestation - Attestation I have personally seen and examined this patient.: Yes I have fully participated in the care of the patient.: Yes I have reviewed all pertinent clinical information: Yes Notes (Text): 12/18/17 17:36 patient seen and examined in the intensive care unit. Patient was admitted to ICU due to SBP 220/140s initially on cardene drip x 1 - 2 hours- now normotensive; patient now in ATN with CRE of 3.7, bandemia with elevated procal, lactate initially 2.4 now 1.7. Patient is for OR today 2/2 increasing free air noted on repeat CT scan.
--- NOTE | 2017-12-18 11:43 | RAD ---
HISTORY: s/p EUS resection of carcinoid tumor COMPARISON: None. TECHNIQUE: Water-soluble contrast upper GI series was performed. Fluoroscopy time: 1.5 minutes. Cumulative Dose: 126.74 mGy FINDINGS: Preliminary fluoroscopic manager assisted living image demonstrates indwelling enteric tube with tip in the stomach, right upper quadrant surgical clips and cluster of patchy free air adjacent to the surgical clips, as seen on recent CT scans of the abdomen and pelvis. Following administration of water-soluble contrast via the indwelling enteric tube, a small amount of extraluminal contrast is seen lateral to the duodenal bulb, in the region of the surgical clips. Throughout the duration of the exam, this focus of external contrast does not change in position. Contrast moves freely from the stomach through the small bowel, across the duodenal sweep and into left upper quadrant jejunum. The patient tolerated the procedure well. IMPRESSION: Limited upper GI series performed with water-soluble contrast demonstrated focal contained extravasation of contrast in the region of the known duodenal bulb perforation.
[2017-12-18] MEDS: Meropenem 500 MG in Sodium Chloride 0.9% 100 ML IVPB SCH ×2 (11:49→22:10)
[2017-12-18 12:55] LABS: INR 1.5
[2017-12-18 13:01] LABS: PROTHROMBIN TIME 15.9 SECONDS (9.7-12.2)
[2017-12-18] MEDS ORDERED: Midazolam 2 MG/2 ML VIAL ONE (13:56)
[2017-12-18] MEDS ORDERED: Etomidate 20 mg/10ml Inj IV ONE (13:56)
[2017-12-18] MEDS ORDERED: Propofol 10 mg/ml Inj (20 ML) ONE (13:56)
[2017-12-18] MEDS ORDERED: Succinylcholine Chloride 20 mg/ml Syr (5 ml) IV ONE (13:58)
[2017-12-18] MEDS ORDERED: Rocuronium 10 mg/ml (10 ml) ONE (13:58)
[2017-12-18] MEDS ORDERED: metroNIDAZOLE IV 500 mg/100 ml 500 MG/100 ML BAG ONE (14:23)
[2017-12-18] MEDS ORDERED: ceFAZolin 1 gm in NS 2 GM/200 ML BAG IVPB ONE (14:23)
[2017-12-18] MEDS ORDERED: Bupivacaine HCl 0.25% PF (30 ml) Inj ONE (14:25)
[2017-12-18] MEDS ORDERED: Lidocaine/Epinephrine 1% 1:100000 10 ML IJ ONE (14:25)
--- NOTE | 2017-12-18 15:19 | CP.PCM.CON ---
History of Present Illness - History of Present Illness History of Present Illness: Nephrology Consultation Note: Assessment: critical oliguric Acute Kidney Injury (N17.9) likely hemodynamic injury leading to ATN HAGMA with respi compensation, hypocalcemia carcinoid HTN crisis s/p resection now resolved acute abdomen with perforation hypertension, COPD, breast cancer s/p lumpectomy and duodenal neuroendocrine tumor Plan No acute need for renal replacement therapy at this time but may need soon and will need close follow up supportive management for now. No ACEI/ARB due to MANFRED. BP on low side. maintain hemodynamics stable. Monitor Input/Output, daily weights and renal function with basic metabolic panel continue with IVF as normal saline. can give IV bicarb if needed for pH<7.2. unable to give PO bicarb as pt NPO agree with IV calcium gluconate supplementation surgery team following Dose meds/antibiotics for reduced GFR. Avoid fleets enema/magnesium based laxatives. Avoid nephrotoxins/NSAIDs/ iodinated contrast (unless needed emergently) Glycemic control Further work up/management as per primary team Thanks for allowing me to participate in care of your patient. Will follow patient with you. Please call if any Qs. 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 she also had HTN crisis which was treated with cardene drip. renal consult for MANFRED eval. also found to have free air in abdomen Denies OTC/herbal meds or NSAIDs No recent iodinated contrast exposure. Noted obvious episodes of low BP (89/51). ROS: Cardiovascular: No chest pain. Pulmonary: No shortness of breath Gastrointestinal: c/o abdominal pain No nausea. No vomiting. Genitourinary: No pain while urinating. Denies blood in urine. All other negative except as mentioned in HPI Physical Examination: General Appearance: uncomfortable, in no acute respiratory distress, co- operative . ill appearing Vitals reviewed and noted as below Head; Atraumatic, normocephalic ENT: no ulcers no thrush. Tongue is midline. Oropharynx: no rash or ulcers. EYES: Pupils are equal, round and reactive to light accommodation. Eye muscles and extraocular movement intact. Sclera is anicteric. Neck; supple no lymphadenopathy, no thyromegaly or bruit Lungs: Normal respiratory rate/effort. Breath sounds bilateral equal and clear Heart: Normal rate. s1s2 normal. No rub or gallop. Extremities: no edema. No varicose veins Neurological: Patient is alert, awake and oriented to person, place and time. No focal deficit. Strength bilateral appropriate and equal Skin: Warm and dry. Normal turgor. No rash. Palpitation: Normal elasticity for age Abdomen: There is epigastric and periumblical abdominal tenderness with guarding but no rigidity no organomegaly Psych: normal insight and normal affect/mood MSK: no joint tenderness or swelling. Digits and nails normal, no deformity : kidney or bladder not palpable. has bruce Labs/imaging reviewed. Past medical history, past surgical history, family history, social history, allergy reviewed and noted as below Family hx: no hx of CKD. Rest non-contributory renal imaging: WNL FeNa 0.7% UA 1+ protein no blood Past Patient History - Past Medical History & Family History Past Medical History?: Yes - Past Social History Smoking Status: Former Smoker - CARDIAC Hx Cardiac Disorders: Yes Hx Hypertension: Yes (PT DENIES THOUGH NOT ON MEDS) - PULMONARY Hx Respiratory Disorders: Yes Hx Asthma: Yes Hx Chronic Obstructive Pulmonary Disease (COPD): Yes - NEUROLOGICAL Hx Neurological Disorder: No - HEENT Hx HEENT Problems: Yes Hx Cataracts: Yes (RT EYE) - RENAL Hx Chronic Kidney Disease: No - ENDOCRINE/METABOLIC Hx Endocrine Disorders: No - HEMATOLOGICAL/ONCOLOGICAL Hx Blood Disorders: No - INTEGUMENTARY Hx Dermatological Problems: No - MUSCULOSKELETAL/RHEUMATOLOGICAL Hx Musculoskeletal Disorders: Yes Hx Back Pain: Yes Hx Degenerative Joint Disease: Yes Hx Falls: Yes Hx Fractures: Yes (LEFT FOOT) Other/Comment: SCIATICA - GASTROINTESTINAL Hx Gastrointestinal Disorders: Yes Hx Gall Bladder Disease: Yes - GENITOURINARY/GYNECOLOGICAL Hx Genitourinary Disorders: No - PSYCHIATRIC Hx Psychophysiologic Disorder: Yes Hx Anxiety: Yes Hx Depression: Yes - SURGICAL HISTORY Hx Surgeries: Yes Hx Breast Biopsy: Yes (X2 RT BREAST) Hx [place]olecystectomy: Yes ([place]) Hx Herniorrhaphy: Yes (RT INGUINAL X3) Hx Joint Replacement: Yes (BILATERAL KNEE ) Hx Orthopedic Surgery: Yes (SCREW RT FOOT) - ANESTHESIA Hx Anesthesia: Yes Hx Anesthesia Reactions: No Hx Malignant Hyperthermia: No Has any member of the family had a problem w/ anesthesia?: No Meds Allergies/Adverse Reactions: Allergies Allergy/AdvReac Type Severity Reaction Status Date / Time PASSION FRUIT Allergy Severe ANAPHYLAXIS Uncoded 11/03/13 11:17 - Medications Medications: Current Medications Albuterol/Ipratropium (Duoneb 3 Mg/0.5 Mg (3 Ml) Ud) 3 ml INH RQ4 PRN PRN Reason: Shortness of Breath Last Admin: 12/16/17 14:24 Dose: 3 ml Dextrose (Dextrose 50% Inj) 0 ml IV STAT PRN; Protocol PRN Reason: Hypoglycemia Protocol Dextrose (Glutose 15) 15 gm PO ONCE PRN; Protocol PRN Reason: Hypoglycemia Protocol Glucagon (Glucagen Diagnostic Kit) 1 mg IM STAT PRN; Protocol PRN Reason: Hypoglycemia Protocol Hydralazine HCl (Apresoline) 10 mg IVP Q6H PRN PRN Reason: Systolic Blood Pressure Hydromorphone HCl (Dilaudid) 0.5 mg IVP Q4H PRN PRN Reason: Pain, severe (8-10) Last Admin: 12/18/17 13:04 Dose: 0.5 mg Sodium Chloride (Sodium Chloride 0.9%) 1,000 mls @ 100 mls/hr IV .Q10H FESTUS Last Admin: 12/18/17 12:16 Dose: Not Given Pantoprazole Sodium 80 mg/ (Sodium Chloride) 100 mls @ 10 mls/hr IV .Q10H FESTUS PRN Reason: 8 MG/HR Last Admin: 12/18/17 13:38 Dose: 10 mls/hr Dextrose (Dextrose 5% In Water 1000 Ml) 1,000 mls @ 0 mls/hr IV .Q0M PRN; Protocol; Per Protocol PRN Reason: Hypoglycemia Protocol Meropenem 500 mg/ Sodium (Chloride) 100 mls @ 100 mls/hr IVPB Q12 FESTUS PRN Reason: Protocol Last Admin: 12/18/17 11:49 Dose: 100 mls/hr BUPIVACAINE 0.125%/0.9% NACL (Bupivacaine-Ns 0.125% On-Q Flasher Adjuster) 600 mls @ 4 mls/ hr IJ ONCE ONE Stop: 12/24/17 20:14 Insulin Human Regular (Novolin R) 0 unit SC ACHS FESTUS PRN Reason: Protocol Last Admin: 12/18/17 12:15 Dose: Not Given Results - Vital Signs Recent Vital Signs: Last Vital Signs Temp 98.8 F 12/18/17 12:00 Pulse 115 H 12/18/17 13:00 Resp 18 12/18/17 13:00 BP 149/112 H 12/18/17 13:00 Pulse Ox 95 12/18/17 13:00 - Labs Result Diagrams: 12/18/17 06:07 12/18/17 06:04 Labs: Laboratory Results - last 24 hr 12/17/17 12/17/17 12/18/17 16:05 21:14 06:04 WBC RBC Hgb Hct MCV MCH MCHC RDW Plt Count MPV Neut % (Auto) Lymph % (Auto) Dent % (Auto) Eos % (Auto) Baso % (Auto) Neut # (Auto) Lymph # (Auto) Dent # (Auto) Eos # (Auto) Baso # (Auto) Neutrophils % (Manual) Band Neutrophils % Lymphocytes % (Manual) Reactive Lymphs % Monocytes % (Manual) Platelet Estimate PT INR APTT Puncture Site pCO2 pO2 HCO3 ABG pH ABG Total CO2 ABG O2 Saturation ABG Base Excess Richard Test ABG Potassium Glucose Lactate Sodium 140 Potassium 4.7 Chloride 110 H Carbon Dioxide 14 L Anion Gap 21 H BUN 56 H Creatinine 3.7 H Est GFR ( Amer) 14 Est GFR (Non-Af Amer) 12 POC Glucose (mg/dL) 150 H 129 H Random Glucose 134 H Calcium 5.6 L* Phosphorus 2.9 Magnesium 1.7 Total Bilirubin 1.1 AST 60 H D ALT 85 H D Alkaline Phosphatase 45 Total Protein 6.2 L Albumin 3.2 L Globulin 3.0 Albumin/Globulin Ratio 1.1 Arterial Blood Potassium Urine Color Urine Clarity Urine pH Ur Specific [place] Urine Protein Urine Glucose (UA) Urine Ketones Urine Blood Urine Nitrate Urine Bilirubin Urine Urobilinogen Ur Leukocyte Esterase Urine WBC (Auto) Urine RBC (Auto) Ur Squamous Epith Cells Urine Bacteria Urine Yeast (Budding) Urine Eosinophils Urine Osmolality Ur Random Creatinine Ur Random Sodium 12/18/17 12/18/17 12/18/17 06:07 07:14 08:27 WBC 8.4 RBC 4.95 Hgb 14.2 Hct 43.5 MCV 87.9 MCH 28.7 MCHC 32.7 L RDW 14.2 Plt Count 175 MPV 11.7 Neut % (Auto) 84.0 H Lymph % (Auto) 9.0 L Dent % (Auto) 6.9 Eos % (Auto) 0.0 Baso % (Auto) 0.1 Neut # (Auto) 7.0 Lymph # (Auto) 0.8 L Dent # (Auto) 0.6 Eos # (Auto) 0.0 Baso # (Auto) 0.0 Neutrophils % (Manual) 24 L Band Neutrophils % 61 H* Lymphocytes % (Manual) 12 L Reactive Lymphs % 2 H Monocytes % (Manual) 1 Platelet Estimate Normal PT INR APTT Puncture Site pCO2 pO2 HCO3 ABG pH ABG Total CO2 ABG O2 Saturation ABG Base Excess Richard Test ABG Potassium Glucose Lactate Sodium Potassium Chloride Carbon Dioxide Anion Gap BUN Creatinine Est GFR ( Amer) Est GFR (Non-Af Amer) POC Glucose (mg/dL) 131 H Random Glucose Calcium Phosphorus Magnesium Total Bilirubin AST ALT Alkaline Phosphatase Total Protein Albumin Globulin Albumin/Globulin Ratio Arterial Blood Potassium Urine Color Urine Clarity Urine pH Ur Specific [place] Urine Protein Urine Glucose (UA) Urine Ketones Urine Blood Urine Nitrate Urine Bilirubin Urine Urobilinogen Ur Leukocyte Esterase Urine WBC (Auto) Urine RBC (Auto) Ur Squamous Epith Cells Urine Bacteria Urine Yeast (Budding) Urine Eosinophils Negative Urine Osmolality Ur Random Creatinine Ur Random Sodium 12/18/17 12/18/17 12/18/17 08:27 08:27 08:45 WBC RBC Hgb Hct MCV MCH MCHC RDW Plt Count MPV Neut % (Auto) Lymph % (Auto) Dent % (Auto) Eos % (Auto) Baso % (Auto) Neut # (Auto) Lymph # (Auto) Dent # (Auto) Eos # (Auto) Baso # (Auto) Neutrophils % (Manual) Band Neutrophils % Lymphocytes % (Manual) Reactive Lymphs % Monocytes % (Manual) Platelet Estimate PT INR APTT Puncture Site Rra pCO2 31 L pO2 73 L HCO3 17.9 L ABG pH 7.32 L ABG Total CO2 17.0 L ABG O2 Saturation 96.7 ABG Base Excess -8.9 L Richard Test Pos ABG Potassium 4.3 Glucose 140 H Lactate 1.7 Sodium 138.0 Potassium Chloride 109.0 H Carbon Dioxide Anion Gap BUN Creatinine Est GFR ( Amer) Est GFR (Non-Af Amer) POC Glucose (mg/dL) Random Glucose Calcium Phosphorus Magnesium Total Bilirubin AST ALT Alkaline Phosphatase Total Protein Albumin Globulin Albumin/Globulin Ratio Arterial Blood Potassium 4.3 Urine Color Annetta Urine Clarity Hazy Urine pH 5.0 Ur Specific [place] 1.020 Urine Protein 1+ H Urine Glucose (UA) 1+ Urine Ketones Trace Urine Blood Negative Urine Nitrate Negative Urine Bilirubin Negative Urine Urobilinogen Normal Ur Leukocyte Esterase Neg Urine WBC (Auto) 3 Urine RBC (Auto) 5 H Ur Squamous Epith Cells < 1 Urine Bacteria Rare Urine Yeast (Budding) Few H Urine Eosinophils Urine Osmolality 549 Ur Random Creatinine 105.8 Ur Random Sodium 126 12/18/17 12/18/17 11:34 12:39 WBC RBC Hgb Hct MCV MCH MCHC RDW Plt Count MPV Neut % (Auto) Lymph % (Auto) Dent % (Auto) Eos % (Auto) Baso % (Auto) Neut # (Auto) Lymph # (Auto) Dent # (Auto) Eos # (Auto) Baso # (Auto) Neutrophils % (Manual) Band Neutrophils % Lymphocytes % (Manual) Reactive Lymphs % Monocytes % (Manual) Platelet Estimate PT 15.9 H INR 1.5 APTT 40 H Puncture Site pCO2 pO2 HCO3 ABG pH ABG Total CO2 ABG O2 Saturation ABG Base Excess Richard Test ABG Potassium Glucose Lactate Sodium Potassium Chloride Carbon Dioxide Anion Gap BUN Creatinine Est GFR ( Amer) Est GFR (Non-Af Amer) POC Glucose (mg/dL) 130 H Random Glucose Calcium Phosphorus Magnesium Total Bilirubin AST ALT Alkaline Phosphatase Total Protein Albumin Globulin Albumin/Globulin Ratio Arterial Blood Potassium Urine Color Urine Clarity Urine pH Ur Specific [place] Urine Protein Urine Glucose (UA) Urine Ketones Urine Blood Urine Nitrate Urine Bilirubin Urine Urobilinogen Ur Leukocyte Esterase Urine WBC (Auto) Urine RBC (Auto) Ur Squamous Epith Cells Urine Bacteria Urine Yeast (Budding) Urine Eosinophils Urine Osmolality Ur Random Creatinine Ur Random Sodium
[2017-12-18] MEDS ORDERED: Bupivacaine HCl 0.25% PF (10 ml) Inj INFIL ONE (15:26)
[2017-12-18] MEDS ORDERED: Methylene Blue 10 mg/mL(10ml) IV ONE (15:54)
[2017-12-18] MEDS ORDERED: BUPIVACAINE 0.125%/0.9% NACL 600 ML IJ ONE (16:00)
[2017-12-18] MEDS ORDERED: Neostigmine Methylsulfate 3mg/3ml Syringe IV ONE (16:38)
--- NOTE | 2017-12-18 18:01 | PCM.SURG1 ---
Surgeon's Initial Post Op Note - Surgeon's Notes Surgeon: Dr. Alatorre Director Product: Oly Duarte PGY2 [place] Type of Anesthesia: General Endo, Other Anesthesia Administered By: Kenan Pre-Operative Diagnosis: Duodenal perforation Operative Findings: duodenla perforation 2x1cm. exposed clips, bile spillage Post-Operative Diagnosis: Duodenoal perforation Operation Performed: ex lap primary repair of duodenal perforation, jourdan patch. omentectomy Specimen/Specimens Removed: omentum, clips x5 Estimated Blood Loss: EBL {In ML}: 100 Blood Products Given: N/A Drains Used: Cullen Post-Op Condition: Fair Date of Surgery/Procedure: 12/18/17 Time of Surgery/Procedure: 18:01
[2017-12-18 18:55] LABS: BASO % 0.6 % (0.0-2.0); EOS % 0.1 % (0.0-4.0); LYMPH # 1.1 K/uL (1.0-4.3); LYMPH % 17.1 % (20.0-40.0); MEAN CORPUSCULAR HEMOGLOBIN 28.3 pg (27.0-31.0); MEAN CORPUSCULAR HGB CONC 31.1 g/dL (33.0-37.0); MEAN PLATELET VOLUME 10.1 fL (7.2-11.7); MONO # 0.3 K/uL (0.0-0.8); MONO % 5.6 % (0.0-10.0); NEUT # 4.8 K/uL (1.8-7.0); NEUT % 76.6 % (50.0-75.0); PLATELET COUNT 182 K/uL (130-400); WHITE BLOOD COUNT 6.3 K/uL (4.8-10.8)
[2017-12-18 19:04] LABS: HEMOGLOBIN 11.9 g/dL (11.0-16.0); MEAN CELL VOLUME 90.8 fL (81.0-99.0)
[2017-12-18 19:07] LABS: ARTERIAL BLOOD GAS HCO3 12.6 mmol/L (21-28); ARTERIAL BLOOD GAS HEMOGLOBIN 14.5 g/dL (11.7-17.4); ARTERIAL BLOOD GAS O2 SAT 99.6 % (95-98); ARTERIAL BLOOD GAS PCO2 38 mm/Hg (35-45); ARTERIAL BLOOD GAS PH 7.13 (7.35-7.45); ARTERIAL BLOOD GAS PO2 119 mm/Hg (80-100); ARTERIAL BLOOD GAS TCO2 13.8 mmol/L (22-28)
[2017-12-18 19:18] LABS: ALB/GLOB RATIO 0.9 (1.0-2.1); ALBUMIN 1.7 g/dL (3.5-5.0); ALT/SGPT 100 U/L (9-52); AST/SGOT 130 U/L (14-36); BLOOD UREA NITROGEN 47 mg/dL (7-17); CALCIUM 3.9 mg/dl (8.6-10.4); GFR AFRICAN-AMERICAN 18; GFR NON-AFRICAN AMERICAN 14
[2017-12-18 19:21] LABS: BANDS 43 % (0-2); MONOCYTE 8 % (0-10); NEUTROPHIL 19 % (50-75); TOTAL CELLS COUNTED 100
[2017-12-18 19:22] LABS: ANISOCYTOSIS SLIGHT; HYPOCHROMIC SLIGHT; LYMPHOCYTE 20 % (20-40); PLATELET ESTIMATE NORMAL (NORMAL); POIKILOCYTOSIS SLIGHT
[2017-12-18 19:23] LABS: BURR CELLS SLIGHT; TARGET CELLS SLIGHT
[2017-12-18] MEDS: Albuterol-Ipratrop 3 mg / 0.5 (3 ml) UD INH PRN (20:12)
[2017-12-18 20:24] LABS: ALBUMIN 2.7 g/dL (3.5-5.0); CALCIUM 5.2 mg/dl (8.6-10.4)
[2017-12-18] MEDS ORDERED: Sodium Bicarbonate 8.4% 150 MEQ in Dextrose 5% In Water 1,000 ML IV SCH (21:00)
[2017-12-18 22:09] LABS: ARTERIAL BLOOD GAS HCO3 14.5 mmol/L (21-28); ARTERIAL BLOOD GAS O2 SAT 100.2 % (95-98); ARTERIAL BLOOD GAS PCO2 32 mm/Hg (35-45); ARTERIAL BLOOD GAS PH 7.22 (7.35-7.45); ARTERIAL BLOOD GAS PO2 219 mm/Hg (80-100); ARTERIAL BLOOD GAS TCO2 14.1 mmol/L (22-28)
[2017-12-19 05:26] LABS: ABG ALLEN TEST POS; ARTERIAL BLOOD GAS HCO3 16.9 mmol/L (21-28); ARTERIAL BLOOD GAS O2 SAT 99.8 % (95-98); ARTERIAL BLOOD GAS PCO2 34 mm/Hg (35-45); ARTERIAL BLOOD GAS PH 7.27 (7.35-7.45); ARTERIAL BLOOD GAS PO2 158 mm/Hg (80-100); ARTERIAL BLOOD GAS TCO2 16.6 mmol/L (22-28)
[2017-12-19] MEDS: HYDROmorphone 1 mg/ml ISec IM PRN ×2 (06:24→12:24)
[2017-12-19] MEDS: Pantoprazole 80 MG in Sodium Chloride 0.9% 100 ML IV SCH ×3 (06:24→17:09)
[2017-12-19] MEDS: (Novolin R) Insulin Human Regular 100 units/ml vial SC SCH ×4 (06:25→23:30)
[2017-12-19 06:34] LABS: BASO % 0.1 % (0.0-2.0); EOS % 0.1 % (0.0-4.0); HEMOGLOBIN 12.2 g/dL (11.0-16.0); LYMPH # 0.7 K/uL (1.0-4.3); LYMPH % 9.7 % (20.0-40.0); MEAN CORPUSCULAR HEMOGLOBIN 28.3 pg (27.0-31.0); MEAN CORPUSCULAR HGB CONC 32.2 g/dL (33.0-37.0); MONO # 0.5 K/uL (0.0-0.8); MONO % 6.8 % (0.0-10.0); NEUT # 5.9 K/uL (1.8-7.0); NEUT % 83.3 % (50.0-75.0); NRBC % 0.2 % (0.0-2.0); PLATELET COUNT 170 K/uL (130-400); RBC 4.29 Mil/uL (3.80-5.20); RED CELL DISTRIBUTION WIDTH 14.5 % (11.5-14.5)
[2017-12-19 06:57] LABS: ALB/GLOB RATIO 0.9 (1.0-2.1); ALBUMIN 2.7 g/dL (3.5-5.0); CALCIUM 4.8 mg/dl (8.6-10.4)
[2017-12-19] MEDS: Sodium Chloride 0.9% 1,000 ML IV SCH (08:09)
[2017-12-19 08:52] LABS: BANDS 24 % (0-2); BASOPHIL 1 % (0-2); LYMPHOCYTE 13 % (20-40); MONOCYTE 7 % (0-10); NEUTROPHIL 55 % (50-75); PLATELET ESTIMATE NORMAL (NORMAL); TOTAL CELLS COUNTED 100
--- NOTE | 2017-12-19 08:55 | CP.PCM.PN ---
<Benita Hurst - Last Filed: 12/19/17 08:58> Subjective - Date & Time of Evaluation Date of Evaluation: 12/19/17 Time of Evaluation: 06:45 - Subjective Subjective: GI Fellow PGY4 Progress Note Pt seen and evaluated at bedside, pt intubated s/p repair of perforation. Per nursing, pt requiring Dilaudid but not on any sedation, following commands. 2 liquid BM overnight. Pt hemodynamically stable, with no pressor support. With minimal urine outpt overnight. NGT 350cc bilious outpt, surgical drains with 400cc of serosanguinous outpt. ROS:A 12pt ROS was negative except as above. Objective - Vital Signs/Intake and Output Vital Signs (last 24 hours): Temp Pulse Resp BP Pulse Ox 97.9 F 119 H 23 112/49 L 98 12/19/17 08:00 12/19/17 08:00 12/19/17 08:00 12/19/17 08:00 12/19/17 08:00 Intake and Output: 12/19/17 12/19/17 06:59 18:59 Intake Total 2070 370 Output Total 660 140 Balance 1410 230 - Medications Medications: Current Medications Acetaminophen (Tylenol 650 Mg Supp) 650 mg GA Q4 PRN PRN Reason: Fever >100.4 F Albuterol/Ipratropium (Duoneb 3 Mg/0.5 Mg (3 Ml) Ud) 3 ml INH RQ4 PRN PRN Reason: Shortness of Breath Last Admin: 12/18/17 20:12 Dose: 3 ml Dextrose (Dextrose 50% Inj) 0 ml IV STAT PRN; Protocol PRN Reason: Hypoglycemia Protocol Dextrose (Glutose 15) 15 gm PO ONCE PRN; Protocol PRN Reason: Hypoglycemia Protocol Glucagon (Glucagen Diagnostic Kit) 1 mg IM STAT PRN; Protocol PRN Reason: Hypoglycemia Protocol Hydralazine HCl (Apresoline) 10 mg IVP Q6H PRN PRN Reason: Systolic Blood Pressure Hydromorphone HCl (Dilaudid) 0.5 mg IVP Q4H PRN PRN Reason: Pain, severe (8-10) Last Admin: 12/18/17 13:04 Dose: 0.5 mg Hydromorphone HCl (Dilaudid) 1 mg IM Q4H PRN PRN Reason: Pain, severe (8-10) Last Admin: 12/19/17 06:24 Dose: 1 mg Sodium Chloride (Sodium Chloride 0.9%) 1,000 mls @ 100 mls/hr IV .Q10H FESTUS Last Admin: 12/19/17 08:09 Dose: Not Given Pantoprazole Sodium 80 mg/ (Sodium Chloride) 100 mls @ 10 mls/hr IV .Q10H FESTUS PRN Reason: 8 MG/HR Last Admin: 12/19/17 08:08 Dose: Not Given Dextrose (Dextrose 5% In Water 1000 Ml) 1,000 mls @ 0 mls/hr IV .Q0M PRN; Protocol; Per Protocol PRN Reason: Hypoglycemia Protocol Meropenem 500 mg/ Sodium (Chloride) 100 mls @ 100 mls/hr IVPB Q12 FESTUS PRN Reason: Protocol Last Admin: 12/18/17 22:10 Dose: 100 mls/hr BUPIVACAINE 0.125%/0.9% NACL (Bupivacaine-Ns 0.125% On-Q Tractor Operator Battery) 600 mls @ 4 mls/ hr IJ ONCE ONE Stop: 12/24/17 21:59 Last Admin: 12/18/17 18:20 Dose: Not Given Sodium Bicarbonate 150 meq/ (Dextrose) 1,150 mls @ 75 mls/hr IV .[id number] FESTUS Last Admin: 12/18/17 21:15 Dose: 75 mls/hr Insulin Human Regular (Novolin R) 0 unit SC Q6 FESTUS PRN Reason: Protocol Last Admin: 12/19/17 06:25 Dose: Not Given Ondansetron HCl (Zofran Inj) 4 mg IVP Q4 PRN PRN Reason: Nausea/Vomiting - Labs Labs: 12/19/17 06:24 12/19/17 06:24 PT 15.9 SECONDS (9.7-12.2) H 12/18/17 12:39 INR 1.5 12/18/17 12:39 APTT 40 SECONDS (21-34) H 12/18/17 12:39 - Constitutional Appears: No Acute Distress, Chronically Ill - Head Exam Head Exam: ATRAUMATIC, NORMAL INSPECTION, NORMOCEPHALIC - Eye Exam Eye Exam: Normal appearance, PERRL - ENT Exam ENT Exam: Mucous Membranes Dry Additional comments: ett, ngt - Neck Exam Neck Exam: Normal Inspection - Respiratory Exam Respiratory Exam: Decreased Breath Sounds Additional comments: intubated - Cardiovascular Exam Cardiovascular Exam: Tachycardia, +S1, +S2 - GI/Abdominal Exam GI & Abdominal Exam: Distended, Soft, Hypoactive Bowel Sounds. 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 Pt is s/p EGD/EUS with EMR complicated by bleeding and perforation s/p clip placement x 7, epi injection, and bipolar cautery. 1. Duodenal perforation s/p surgical repair POD#1 2. Metabolic acidosis 3. EMR of carcinoid tumor in duodenum 4. Elevated LFTs 5. MANFRED possible ATN 6. Sepsis 7. VDRF 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 and perforation that was treated with a combination of clipping, electrocautery and epinephrine - Duodenal perforation with no closure seen on repeat CT and UpperGI series, pt taken to OR with repair of perforation with jourdan patch POD#1 - Hgb stable with no acute blood loss anemia, not requiring transfusion - Protonix drip - IV abx - Pt clinically hemodynamically stable, BP on the lower side - ARF likely ATN, worsening urine output and ARF, appreciate nephrology consult , may need permath cath and HD - Metabolic acidosis likely from ARF - IVF hydration and Bicarb - NPO, NGT with bilious output - Appreciate surgical consult - Will continue to follow pt closely <Thomas Cline - Last Filed: 12/19/17 17:32> Objective - Vital Signs/Intake and Output Vital Signs (last 24 hours): Temp Pulse Resp BP Pulse Ox 97.6 F 119 H 23 103/46 L 97 12/19/17 16:00 12/19/17 16:00 12/19/17 16:00 12/19/17 16:00 12/19/17 16:00 Intake and Output: 12/19/17 12/19/17 06:59 18:59 Intake Total 2069 2034 Output Total 660 425 Balance 1410 1610 - Medications Medications: Current Medications Acetaminophen (Tylenol 650 Mg Supp) 650 mg GA Q4 PRN PRN Reason: Fever >100.4 F Acetylcysteine (Acetylcysteine 20%) 6 ml PO Q12H FESTUS Stop: 12/20/17 21:16 Last Admin: 12/19/17 10:54 Dose: 6 ml Albuterol/Ipratropium (Duoneb 3 Mg/0.5 Mg (3 Ml) Ud) 3 ml INH RQ4 PRN PRN Reason: Shortness of Breath Last Admin: 12/18/17 20:12 Dose: 3 ml Calcitriol (Rocaltrol) 0.5 mcg GT DAILY FESTUS Last Admin: 12/19/17 11:14 Dose: 0.5 mcg Calcium/Vitamin D (Oyster Shell Calcium/Vitamin D 500 Mg-200 Iu) 1 tab PO BID FESTUS Dextrose (Dextrose 50% Inj) 0 ml IV STAT PRN; Protocol PRN Reason: Hypoglycemia Protocol Dextrose (Glutose 15) 15 gm PO ONCE PRN; Protocol PRN Reason: Hypoglycemia Protocol Glucagon (Glucagen Diagnostic Kit) 1 mg IM STAT PRN; Protocol PRN Reason: Hypoglycemia Protocol Hydromorphone HCl (Dilaudid) 0.5 mg IVP Q4H PRN PRN Reason: Pain, severe (8-10) Last Admin: 12/18/17 13:04 Dose: 0.5 mg Pantoprazole Sodium 80 mg/ (Sodium Chloride) 100 mls @ 10 mls/hr IV .Q10H FESTUS PRN Reason: 8 MG/HR Last Admin: 12/19/17 17:09 Dose: 10 mls/hr Dextrose (Dextrose 5% In Water 1000 Ml) 1,000 mls @ 0 mls/hr IV .Q0M PRN; Protocol; Per Protocol PRN Reason: Hypoglycemia Protocol Meropenem 500 mg/ Sodium (Chloride) 100 mls @ 100 mls/hr IVPB Q12 FESTUS PRN Reason: Protocol Last Admin: 12/19/17 09:57 Dose: 100 mls/hr BUPIVACAINE 0.125%/0.9% NACL (Bupivacaine-Ns 0.125% On-Q Tractor Operator Battery) 600 mls @ 4 mls/ hr IJ ONCE ONE Stop: 12/24/17 21:59 Last Admin: 12/18/17 18:20 Dose: Not Given Sodium Bicarbonate 150 meq/ (Dextrose) 1,150 mls @ 80 mls/hr IV .[id number] [facility] Last Admin: 12/19/17 10:42 Dose: 80 mls/hr Multivitamins/Vitamin C 10 ml/ (Amino Acids) 1,010 mls @ 84 mls/hr IV .Q12H2M FESTUS Stop: 12/20/17 06:01 Amino Acids (Clinimix 4.25/5 % "E" (1000 Ml)) 1,000 mls @ 84 mls/hr IV .[id number] [facility] Stop: 12/20/17 17:59 Insulin Human Regular (Novolin R) 0 unit SC Q6 FESTUS PRN Reason: Protocol Last Admin: 12/19/17 12:02 Dose: Not Given Ondansetron HCl (Zofran Inj) 4 mg IVP Q4 PRN PRN Reason: Nausea/Vomiting - Labs Labs: 12/19/17 06:24 12/19/17 06:24 PT 15.9 SECONDS (9.7-12.2) H 12/18/17 12:39 INR 1.5 12/18/17 12:39 APTT 40 SECONDS (21-34) H 12/18/17 12:39 Attending/Attestation - Attestation I have personally seen and examined this patient.: Yes I have fully participated in the care of the patient.: Yes I have reviewed all pertinent clinical information, including history, physical exam and plan: Yes Notes (Text): 12/19/17 17:28 I have seen and examined patient with GI fellow. She remains in critical care unit, intubated, s/p surgical repair of duodenal perforation. She had two small bowel movements overnight, no reported nausea, vomiting. Approximately 300 cc bilious output via NGT overnight. Review of vitals from today shows tachycardia. Minimal urine output noted over last nursing shift. HTN COPD History of breast cancer Duodenal carcinoid tumor s/p EMR complicated by duodenal perforation, POD #1 of surgical repair Acute renal insufficiency - NPO - Continue to monitor NGT output - Continue with broad spectrum antibiotic therapy, monitor blood culture results - Continue with PPI therapy - Monitor urine output, follow up nephrology recommendations. Currently no dialysis suggested, continue observation. - Follow up surgical recommendations - Will continue to monitor patient clinical course
[2017-12-19] MEDS ORDERED: Acetylcysteine 20% Inhal Soln (4ml) PO SCH (09:15)
[2017-12-19] MEDS: Meropenem 500 MG in Sodium Chloride 0.9% 100 ML IVPB SCH ×2 (09:57→22:54)
[2017-12-19] MEDS ORDERED: Calcium-Vit D 250 mg-125 Units Tab UD PO SCH (10:00)
[2017-12-19 10:29] LABS: URINE BILIRUBIN NEGATIVE (NEGATIVE); URINE BLOOD 2+ (NEGATIVE); URINE CLARITY Hazy (Clear); URINE COLOR Blue (YELLOW); URINE GLUCOSE (UA) 1+ mg/dL (Normal); URINE PROTEIN 2+ mg/dL (NEGATIVE); URINE UROBILINOGEN NORMAL mg/dL (0.2-1.0)
[2017-12-19] MEDS: Sodium Bicarbonate 8.4% 150 MEQ in Dextrose 5% In Water 1,000 ML IV SCH ×2 (10:42→23:45)
[2017-12-19 10:47] LABS: URINE LEUKOCYTE ESTERASE NEGATIVE Leu/uL (Negative)
[2017-12-19] MEDS ORDERED: Calcitriol 1 mcg/ml Oral Soln (15 ml) GT SCH (11:00)
--- NOTE | 2017-12-19 11:06 | RAD ---
HISTORY: intubated post-op COMPARISON: Portable chest 12/17/2017. FINDINGS: LUNGS: Endotracheal and nasogastric tubes are not significantly changed in position. The images captured at a latter phase of expiration. Limited medial basilar atelectasis left base identified. Remaining lung olsen appear clear. PLEURA: No significant pleural effusion identified, no pneumothorax apparent. CARDIOVASCULAR: Stable cardiomegaly. No pulmonary vascular congestion. OSSEOUS STRUCTURES: No significant abnormalities. VISUALIZED UPPER ABDOMEN: Normal. OTHER FINDINGS: None. IMPRESSION: Limited medial basilar atelectasis with diminished pulmonary volume appreciated bilaterally. No right-sided airspace disease appreciable. Stable cardiomegaly.
--- NOTE | 2017-12-19 11:20 | RAD ---
HISTORY: intubated COMPARISON: Portable chest 12/18/2017. FINDINGS: Endotracheal and nasogastric tubes do not appear significantly changed in position. LUNGS: Improved aeration bilaterally limited linear atelectasis is appreciate the medial right base with limited patchy density at the left perihilar space. Medial basilar patchy density has resolved. PLEURA: Interval trace right pleural effusion difficult to exclude. No left pleural effusion identified, no pneumothorax apparent. CARDIOVASCULAR: Prominent cardiac silhouette remains with no definite pulmonary vascular congestion. OSSEOUS STRUCTURES: No significant abnormalities. VISUALIZED UPPER ABDOMEN: Normal. OTHER FINDINGS: None. IMPRESSION: Mixed pattern of improved medial left basilar airspace disease with left perihilar patchy density identified. Linear atelectasis medial right base. Trace right pleural effusion difficult to exclude. Stable cardiomegaly. No pulmonary vascular congestion.
--- NOTE | 2017-12-19 11:50 | CP.CCUPN ---
<Estefania Veliz - Last Filed: 12/19/17 12:41> CCU Subjective - Physician Review Subjective (Free Text): Patient seen and examined at bedside. Patient is intubated on PRVC current settings: 14/60/500/ 5. Poor urine output (30 cc) overnight. No dialysis at this time. CCU Objective - Vital Signs / Intake & Output Vital Signs (Last 4 hours): Vital Signs Temp Pulse Resp BP Pulse Ox 12/19/17 11:00 119 H 21 112/50 L 96 12/19/17 10:00 118 H 20 114/40 L 96 12/19/17 09:00 118 H 23 131/54 L 98 12/19/17 08:00 97.9 F 119 H 23 112/49 L 98 Intake and Output (Last 8hrs): Intake & Output 12/18/17 12/19/17 12/19/17 22:59 06:59 14:59 Intake Total 1490 1080 885 Output Total 750 280 220 Balance 740 800 665 Weight 235 lb Intake: IV 400 Intake, IV Amount 1090 1080 885 Left Distal Port Hand 40 80 50 Left Hand 900 400 450 Rt AC 150 600 385 Output: Gastric Amount 200 Left Nares 200 Drainage 380 280 220 KORI 1 240 160 115 KORI 2 140 120 105 Urine 170 Urethral (Bruce) 20 Urine, Voided 0 Other: # Bowel Movements 1 - Physical Exam Head: Positive for: Atraumatic, Normocephalic, Ecchymosis Extroacular Muscles: Positive for: EOMI Conjunctiva: Positive for: Normal Mouth: Positive for: Other (INTUBATED) Nose (External): Positive for: Other (NGT in place ) Respiratory/Chest: Positive for: Clear to Auscultation. Negative for: Decreased Breath Sounds Cardiovascular: Positive for: Regular Rate and Rhythm Abdomen: Positive for: Tenderness, Normal Bowel Sounds, Guarding. Negative for : Distention Upper Extremity: Positive for: Normal Inspection, NORMAL PULSES, Neurovascularly Intact, Capillary Refill < 2s Lower Extremity: Positive for: Normal Inspection, NORMAL PULSES, Neurovascularly Intact, Capillary Refill < 2 s Neurological: Positive for: GCS=15, CN II-XII Intact Skin: Positive for: Warm, Dry, Normal Color Psychiatric: Positive for: Alert, Oriented x 3, Normal Insight, Normal Concentration - Medications Active Medications: Active Medications Generic Name Dose Route Start Last Admin Trade Name Freq PRN Reason Stop Dose Admin Acetaminophen 650 mg 12/18/17 18:04 Tylenol 650 Mg Supp AR Q4 PRN Fever >100.4 F Acetylcysteine 6 ml 12/19/17 09:15 12/19/17 10:54 Acetylcysteine 20% PO 12/20/17 21:16 6 ml Q12H FESTUS Administration Albuterol/Ipratropium 3 ml 12/16/17 12:03 12/18/17 20:12 Duoneb 3 Mg/0.5 Mg (3 Ml) Ud INH 3 ml RQ4 PRN Administration Shortness of Breath Calcitriol 0.5 mcg 12/19/17 11:00 12/19/17 11:14 Rocaltrol GT 0.5 mcg DAILY FESTUS Administration Calcium/Vitamin D 2 tab 12/19/17 10:00 12/19/17 10:53 Oscal-D 250 Mg-125 Units Tab PO 2 tab BID FESTUS Administration Dextrose 0 ml 12/16/17 12:08 Dextrose 50% Inj IV STAT PRN Hypoglycemia Protocol Protocol Dextrose 15 gm 12/16/17 12:08 Glutose 15 PO ONCE PRN Hypoglycemia Protocol Protocol Glucagon 1 mg 12/16/17 12:08 Glucagen Diagnostic Kit IM STAT PRN Hypoglycemia Protocol Protocol Hydromorphone HCl 0.5 mg 12/17/17 09:53 12/18/17 13:04 Dilaudid IVP 0.5 mg Q4H PRN Administration Pain, severe (8-10) Hydromorphone HCl 1 mg 12/18/17 18:02 12/19/17 06:24 Dilaudid IM 1 mg Q4H PRN Administration Pain, severe (8-10) Pantoprazole Sodium 80 mg/ 100 mls @ 10 mls/hr 12/16/17 09:35 12/19/17 08:08 Sodium Chloride IV Not Given .Q10H FESTUS 8 MG/HR Dextrose 1,000 mls @ 0 mls/hr 12/16/17 12:08 Dextrose 5% In Water 1000 Ml IV .Q0M PRN Hypoglycemia Protocol Protocol Per Protocol Meropenem 500 mg/ Sodium 100 mls @ 100 mls/hr 12/18/17 10:00 12/19/17 09:57 Chloride IVPB 100 mls/hr Q12 FESTUS Administration Protocol BUPIVACAINE 0.125%/0.9% NACL 600 mls @ 4 mls/hr 12/18/17 16:00 12/18/17 18:20 Bupivacaine-Ns 0.125% On-Q Educational Consultant IJ 12/24/17 21:59 Not Given ONCE ONE Sodium Bicarbonate 150 meq/ 1,150 mls @ 80 mls/hr 12/19/17 09:30 12/19/17 10: 42 Dextrose IV 80 mls/hr .[id number] FESTUS Administration Calcium Gluconate 2,000 mg/ 270 mls @ 100 mls/hr 12/19/17 10:00 12/19/17 10: 43 Sodium Chloride IVPB 12/19/17 12:41 100 mls/hr ONCE ONE Administration Calcium Gluconate 2,000 mg/ 270 mls @ 100 mls/hr 12/19/17 12:00 Sodium Chloride IVPB 12/19/17 14:41 ONCE ONE Insulin Human Regular 0 unit 12/19/17 00:00 12/19/17 06:25 Novolin R SC Not Given Q6 [facility] Protocol Ondansetron HCl 4 mg 12/18/17 18:03 Zofran Inj IVP Q4 PRN Nausea/Vomiting - Patient Studies Lab Studies: Microbiology Studies 12/18/17 08:27 Urine Culture - Final Urine No Growth (<1,000 CFU/ML) 12/17/17 16:00 Blood Culture - Preliminary Blood-Venous NO GROWTH AFTER 24 HOURS 12/17/17 16:40 Blood Culture - Preliminary Blood-Venous NO GROWTH AFTER 24 HOURS Lab Studies 12/19/17 12/19/17 12/19/17 Range/Units 10:05 06:24 06:24 WBC 7.0 (4.8-10.8) K/uL RBC 4.29 (3.80-5.20) Mil/uL Hgb 12.2 (11.0-16.0) g/dL Hct 37.8 (34.0-47.0) % MCV 88.0 D (81.0-99.0) fL MCH 28.3 (27.0-31.0) pg MCHC 32.2 L (33.0-37.0) g/dL RDW 14.5 (11.5-14.5) % Plt Count 170 (130-400) K/uL MPV 11.0 (7.2-11.7) fL Neut % (Auto) 83.3 H (50.0-75.0) % Lymph % (Auto) 9.7 L (20.0-40.0) % Meigs % (Auto) 6.8 (0.0-10.0) % Eos % (Auto) 0.1 (0.0-4.0) % Baso % (Auto) 0.1 (0.0-2.0) % Neut # (Auto) 5.9 (1.8-7.0) K/uL Lymph # (Auto) 0.7 L (1.0-4.3) K/uL Meigs # (Auto) 0.5 (0.0-0.8) K/uL Eos # (Auto) 0.0 (0.0-0.7) K/uL Baso # (Auto) 0.0 (0.0-0.2) K/uL Neutrophils % (Manual) 55 (50-75) % Band Neutrophils % 24 H* (0-2) % Lymphocytes % (Manual) 13 L (20-40) % Monocytes % (Manual) 7 (0-10) % Basophils % (Manual) 1 (0-2) % Platelet Estimate Normal (NORMAL) Hypochromasia (manual) Poikilocytosis (manual Anisocytosis (manual) Target Cells [place] Cells PT (9.7-12.2) SECONDS INR APTT (21-34) SECONDS Puncture Site pCO2 (35-45) mm/Hg pO2 (80-100) mm/Hg HCO3 (21-28) mmol/L ABG pH (7.35-7.45) ABG Total CO2 (22-28) mmol/L ABG O2 Saturation (95-98) % ABG Base Excess (-2.0-3.0) mmol/L ABG Hemoglobin (11.7-17.4) g/dL ABG Carboxyhemoglobin (0.5-1.5) % POC ABG HHb (Measured) (0.0-5.0) % ABG Methemoglobin (0.0-3.0) % Richard Test ABG Potassium (3.6-5.2) mmol/L A-a O2 Difference mm/Hg Respiratory Index Hgb O2 Saturation (95.0-98.0) % Glucose (65-105) mg/dl Lactate (0.7-2.1) mmol/L Vent Mode Mechanical Rate FiO2 % Tidal Volume PEEP Crit Value Called To Crit Value Called By Crit Value Read Back Blood Gas Notified Time Sodium 143 (132-148) mmol/L Potassium 5.0 (3.6-5.2) mmol/L Chloride 111 H (98-107) mmol/L Carbon Dioxide 16 L (22-30) mmol/L Anion Gap 21 H (10-20) BUN 66 H (7-17) mg/dL Creatinine 4.5 H (0.7-1.2) mg/dL Est GFR ( Amer) 11 Est GFR (Non-Af Amer) 9 POC Glucose (mg/dL) (65-110) mg/dL Random Glucose 123 H (65-105) mg/dL Calcium 4.8 L* (8.6-10.4) mg/dl Phosphorus 3.9 (2.5-4.5) mg/dL Magnesium 1.5 L (1.6-2.3) mg/dL Total Bilirubin 1.0 (0.2-1.3) mg/dL AST 139 H D (14-36) U/L ALT 84 H D (9-52) U/L Alkaline Phosphatase 23 L D (38-126) U/L Total Protein 5.6 L (6.3-8.3) g/dL Albumin 2.7 L (3.5-5.0) g/dL Globulin 2.9 (2.2-3.9) gm/dL Albumin/Globulin Ratio 0.9 L (1.0-2.1) Lipase 329 H (23-300) U/L Arterial Blood Potassium (3.6-5.2) mmol/L Urine Color Blue (YELLOW) Urine Clarity Hazy (Clear) Urine pH 5.0 (5.0-8.0) Ur Specific Carpenter 1.020 (1.003-1.030) Urine Protein 2+ H (NEGATIVE) mg/dL Urine Glucose (UA) 1+ (Normal) mg/dL Urine Ketones Trace (NEGATIVE) mg/dL Urine Blood 2+ H (NEGATIVE) Urine Nitrate Negative (NEGATIVE) Urine Bilirubin Negative (NEGATIVE) Urine Urobilinogen Normal (0.2-1.0) mg/dL Ur Leukocyte Esterase Negative (Negative) Orin/uL Urine WBC (Auto) 2 (0-5) /hpf Urine RBC (Auto) 47 H (0-3) /hpf Urine Chloride (32-290) mmol/L Blood Type Antibody Screen 12/19/17 12/19/17 12/18/17 Range/Units 05:30 05:00 23:44 WBC (4.8-10.8) K/uL RBC (3.80-5.20) Mil/uL Hgb (11.0-16.0) g/dL Hct (34.0-47.0) % MCV (81.0-99.0) fL MCH (27.0-31.0) pg MCHC (33.0-37.0) g/dL RDW (11.5-14.5) % Plt Count (130-400) K/uL MPV (7.2-11.7) fL Neut % (Auto) (50.0-75.0) % Lymph % (Auto) (20.0-40.0) % Meigs % (Auto) (0.0-10.0) % Eos % (Auto) (0.0-4.0) % Baso % (Auto) (0.0-2.0) % Neut # (Auto) (1.8-7.0) K/uL Lymph # (Auto) (1.0-4.3) K/uL Meigs # (Auto) (0.0-0.8) K/uL Eos # (Auto) (0.0-0.7) K/uL Baso # (Auto) (0.0-0.2) K/uL Neutrophils % (Manual) (50-75) % Band Neutrophils % (0-2) % Lymphocytes % (Manual) (20-40) % Monocytes % (Manual) (0-10) % Basophils % (Manual) (0-2) % Platelet Estimate (NORMAL) Hypochromasia (manual) Poikilocytosis (manual Anisocytosis (manual) Target Cells [place] Cells PT (9.7-12.2) SECONDS INR APTT (21-34) SECONDS Puncture Site Rr pCO2 34 L (35-45) mm/Hg pO2 158 H (80-100) mm/Hg HCO3 16.9 L (21-28) mmol/L ABG pH 7.27 L (7.35-7.45) ABG Total CO2 16.6 L (22-28) mmol/L ABG O2 Saturation 99.8 H (95-98) % ABG Base Excess -10.3 L (-2.0-3.0) mmol/L ABG Hemoglobin (11.7-17.4) g/dL ABG Carboxyhemoglobin (0.5-1.5) % POC ABG HHb (Measured) (0.0-5.0) % ABG Methemoglobin (0.0-3.0) % Richard Test Pos ABG Potassium 4.1 (3.6-5.2) mmol/L A-a O2 Difference 513.0 mm/Hg Respiratory Index 3.2 Hgb O2 Saturation (95.0-98.0) % Glucose 151 H (65-105) mg/dl Lactate 2.1 (0.7-2.1) mmol/L Vent Mode Prvc Mechanical Rate 14 FiO2 100.0 % Tidal Volume 500 PEEP 5 Crit Value Called To Crit Value Called By Crit Value Read Back Blood Gas Notified Time Sodium 138.0 (132-148) mmol/L Potassium (3.6-5.2) mmol/L Chloride 108.0 H (98-107) mmol/L Carbon Dioxide (22-30) mmol/L Anion Gap (10-20) BUN (7-17) mg/dL Creatinine (0.7-1.2) mg/dL Est GFR ( Amer) Est GFR (Non-Af Amer) POC Glucose (mg/dL) 154 H 149 H (65-110) mg/dL Random Glucose (65-105) mg/dL Calcium (8.6-10.4) mg/dl Phosphorus (2.5-4.5) mg/dL Magnesium (1.6-2.3) mg/dL Total Bilirubin (0.2-1.3) mg/dL AST (14-36) U/L ALT (9-52) U/L Alkaline Phosphatase (38-126) U/L Total Protein (6.3-8.3) g/dL Albumin (3.5-5.0) g/dL Globulin (2.2-3.9) gm/dL Albumin/Globulin Ratio (1.0-2.1) Lipase (23-300) U/L Arterial Blood Potassium 4.1 (3.6-5.2) mmol/L Urine Color (YELLOW) Urine Clarity (Clear) Urine pH (5.0-8.0) Ur Specific [place] (1.003-1.030) Urine Protein (NEGATIVE) mg/dL Urine Glucose (UA) (Normal) mg/dL Urine Ketones (NEGATIVE) mg/dL Urine Blood (NEGATIVE) Urine Nitrate (NEGATIVE) Urine Bilirubin (NEGATIVE) Urine Urobilinogen (0.2-1.0) mg/dL Ur Leukocyte Esterase (Negative) Orin/uL Urine WBC (Auto) (0-5) /hpf Urine RBC (Auto) (0-3) /hpf Urine Chloride (32-290) mmol/L Blood Type Antibody Screen 12/18/17 12/18/17 12/18/17 Range/Units 21:58 19:59 19:02 WBC (4.8-10.8) K/uL RBC (3.80-5.20) Mil/uL Hgb (11.0-16.0) g/dL Hct (34.0-47.0) % MCV (81.0-99.0) fL MCH (27.0-31.0) pg MCHC (33.0-37.0) g/dL RDW (11.5-14.5) % Plt Count (130-400) K/uL MPV (7.2-11.7) fL Neut % (Auto) (50.0-75.0) % Lymph % (Auto) (20.0-40.0) % Meigs % (Auto) (0.0-10.0) % Eos % (Auto) (0.0-4.0) % Baso % (Auto) (0.0-2.0) % Neut # (Auto) (1.8-7.0) K/uL Lymph # (Auto) (1.0-4.3) K/uL Meigs # (Auto) (0.0-0.8) K/uL Eos # (Auto) (0.0-0.7) K/uL Baso # (Auto) (0.0-0.2) K/uL Neutrophils % (Manual) (50-75) % Band Neutrophils % (0-2) % Lymphocytes % (Manual) (20-40) % Monocytes % (Manual) (0-10) % Basophils % (Manual) (0-2) % Platelet Estimate (NORMAL) Hypochromasia (manual) Poikilocytosis (manual Anisocytosis (manual) Target Cells [place] Cells PT (9.7-12.2) SECONDS INR APTT (21-34) SECONDS Puncture Site Rba Rba pCO2 32 L 38 (35-45) mm/Hg pO2 219 H 119 H (80-100) mm/Hg HCO3 14.5 L 12.6 L (21-28) mmol/L ABG pH 7.22 L 7.13 L* (7.35-7.45) ABG Total CO2 14.1 L 13.8 L (22-28) mmol/L ABG O2 Saturation 100.2 H 99.6 H (95-98) % ABG Base Excess -13.4 L -15.8 L (-2.0-3.0) mmol/L ABG Hemoglobin 14.5 (11.7-17.4) g/dL ABG Carboxyhemoglobin 1.5 (0.5-1.5) % POC ABG HHb (Measured) 0.4 (0.0-5.0) % ABG Methemoglobin 1.0 (0.0-3.0) % Richard Test Na Na ABG Potassium 4.1 (3.6-5.2) mmol/L A-a O2 Difference 454.0 547.0 mm/Hg Respiratory Index 2.1 4.6 Hgb O2 Saturation 97.0 (95.0-98.0) % Glucose 146 H (65-105) mg/dl Lactate 2.5 H (0.7-2.1) mmol/L Vent Mode Prvc Prvc Mechanical Rate 14 FiO2 100.0 100.0 % Tidal Volume 500 500 PEEP 5 5 Crit Value Called To [facility] agricultural commodities inspector Crit Value Called By Mandeep Crit Value Read Back Y Blood Gas Notified Time 1906 Sodium 138.0 142 (132-148) mmol/L Potassium 4.5 (3.6-5.2) mmol/L Chloride 111.0 H 112 H (98-107) mmol/L Carbon Dioxide 14 L (22-30) mmol/L Anion Gap 20 (10-20) BUN 61 H (7-17) mg/dL Creatinine 4.6 H (0.7-1.2) mg/dL Est GFR ( Amer) 11 Est GFR (Non-Af Amer) 9 POC Glucose (mg/dL) (65-110) mg/dL Random Glucose 127 H (65-105) mg/dL Calcium 5.2 L* D (8.6-10.4) mg/dl Phosphorus 5.2 H (2.5-4.5) mg/dL Magnesium 1.5 L (1.6-2.3) mg/dL Total Bilirubin 0.7 (0.2-1.3) mg/dL AST 188 H D (14-36) U/L ALT 119 H (9-52) U/L Alkaline Phosphatase 34 L D (38-126) U/L Total Protein 5.3 L (6.3-8.3) g/dL Albumin 2.7 L D (3.5-5.0) g/dL Globulin 2.6 (2.2-3.9) gm/dL Albumin/Globulin Ratio 1.0 (1.0-2.1) Lipase (23-300) U/L Arterial Blood Potassium 4.1 (3.6-5.2) mmol/L Urine Color (YELLOW) Urine Clarity (Clear) Urine pH (5.0-8.0) Ur Specific [place] (1.003-1.030) Urine Protein (NEGATIVE) mg/dL Urine Glucose (UA) (Normal) mg/dL Urine Ketones (NEGATIVE) mg/dL Urine Blood (NEGATIVE) Urine Nitrate (NEGATIVE) Urine Bilirubin (NEGATIVE) Urine Urobilinogen (0.2-1.0) mg/dL Ur Leukocyte Esterase (Negative) Orin/uL Urine WBC (Auto) (0-5) /hpf Urine RBC (Auto) (0-3) /hpf Urine Chloride (32-290) mmol/L Blood Type Antibody Screen 12/18/17 12/18/17 12/18/17 Range/Units 18:57 18:44 18:44 WBC 6.3 (4.8-10.8) K/uL RBC 4.20 (3.80-5.20) Mil/uL Hgb 11.9 D (11.0-16.0) g/dL Hct 38.2 (34.0-47.0) % MCV 90.8 D (81.0-99.0) fL MCH 28.3 (27.0-31.0) pg MCHC 31.1 L (33.0-37.0) g/dL RDW 15.0 H (11.5-14.5) % Plt Count 182 (130-400) K/uL MPV 10.1 (7.2-11.7) fL Neut % (Auto) 76.6 H (50.0-75.0) % Lymph % (Auto) 17.1 L (20.0-40.0) % [place] % (Auto) 5.6 (0.0-10.0) % Eos % (Auto) 0.1 (0.0-4.0) % Baso % (Auto) 0.6 (0.0-2.0) % Neut # (Auto) 4.8 (1.8-7.0) K/uL Lymph # (Auto) 1.1 (1.0-4.3) K/uL [place] # (Auto) 0.3 (0.0-0.8) K/uL Eos # (Auto) 0.0 (0.0-0.7) K/uL Baso # (Auto) 0.0 (0.0-0.2) K/uL Neutrophils % (Manual) 19 L (50-75) % Band Neutrophils % 43 H* (0-2) % Lymphocytes % (Manual) 20 (20-40) % Monocytes % (Manual) 8 (0-10) % Basophils % (Manual) (0-2) % Platelet Estimate Normal (NORMAL) Hypochromasia (manual) Slight Poikilocytosis (manual Slight Anisocytosis (manual) Slight Target Cells Slight [place] Cells Slight PT (9.7-12.2) SECONDS INR APTT (21-34) SECONDS Puncture Site pCO2 (35-45) mm/Hg pO2 (80-100) mm/Hg HCO3 (21-28) mmol/L ABG pH (7.35-7.45) ABG Total CO2 (22-28) mmol/L ABG O2 Saturation (95-98) % ABG Base Excess (-2.0-3.0) mmol/L ABG Hemoglobin (11.7-17.4) g/dL ABG Carboxyhemoglobin (0.5-1.5) % POC ABG HHb (Measured) (0.0-5.0) % ABG Methemoglobin (0.0-3.0) % Richard Test ABG Potassium (3.6-5.2) mmol/L A-a O2 Difference mm/Hg Respiratory Index Hgb O2 Saturation (95.0-98.0) % Glucose (65-105) mg/dl Lactate (0.7-2.1) mmol/L Vent Mode Mechanical Rate FiO2 % Tidal Volume PEEP Crit Value Called To Crit Value Called By Crit Value Read Back Blood Gas Notified Time Sodium 144 (132-148) mmol/L Potassium 3.7 (3.6-5.2) mmol/L Chloride 120 H (98-107) mmol/L Carbon Dioxide 12 L (22-30) mmol/L Anion Gap 17 (10-20) BUN 47 H (7-17) mg/dL Creatinine 3.1 H (0.7-1.2) mg/dL Est GFR ( Amer) 18 Est GFR (Non-Af Amer) 14 POC Glucose (mg/dL) 150 H (65-110) mg/dL Random Glucose 95 (65-105) mg/dL Calcium 3.9 L* D (8.6-10.4) mg/dl Phosphorus 3.4 (2.5-4.5) mg/dL Magnesium 1.2 L (1.6-2.3) mg/dL Total Bilirubin 0.6 (0.2-1.3) mg/dL AST 130 H D (14-36) U/L ALT 100 H (9-52) U/L Alkaline Phosphatase < 20 L D (38-126) U/L Total Protein 3.7 L (6.3-8.3) g/dL Albumin 1.7 L D (3.5-5.0) g/dL Globulin 1.9 L (2.2-3.9) gm/dL Albumin/Globulin Ratio 0.9 L (1.0-2.1) Lipase (23-300) U/L Arterial Blood Potassium (3.6-5.2) mmol/L Urine Color (YELLOW) Urine Clarity (Clear) Urine pH (5.0-8.0) Ur Specific [place] (1.003-1.030) Urine Protein (NEGATIVE) mg/dL Urine Glucose (UA) (Normal) mg/dL Urine Ketones (NEGATIVE) mg/dL Urine Blood (NEGATIVE) Urine Nitrate (NEGATIVE) Urine Bilirubin (NEGATIVE) Urine Urobilinogen (0.2-1.0) mg/dL Ur Leukocyte Esterase (Negative) Orin/uL Urine WBC (Auto) (0-5) /hpf Urine RBC (Auto) (0-3) /hpf Urine Chloride (32-290) mmol/L Blood Type Antibody Screen 12/18/17 12/18/17 12/18/17 Range/Units 12:39 11:34 08:32 WBC (4.8-10.8) K/uL RBC (3.80-5.20) Mil/uL Hgb (11.0-16.0) g/dL Hct (34.0-47.0) % MCV (81.0-99.0) fL MCH (27.0-31.0) pg MCHC (33.0-37.0) g/dL RDW (11.5-14.5) % Plt Count (130-400) K/uL MPV (7.2-11.7) fL Neut % (Auto) (50.0-75.0) % Lymph % (Auto) (20.0-40.0) % [place] % (Auto) (0.0-10.0) % Eos % (Auto) (0.0-4.0) % Baso % (Auto) (0.0-2.0) % Neut # (Auto) (1.8-7.0) K/uL Lymph # (Auto) (1.0-4.3) K/uL [place] # (Auto) (0.0-0.8) K/uL Eos # (Auto) (0.0-0.7) K/uL Baso # (Auto) (0.0-0.2) K/uL Neutrophils % (Manual) (50-75) % Band Neutrophils % (0-2) % Lymphocytes % (Manual) (20-40) % Monocytes % (Manual) (0-10) % Basophils % (Manual) (0-2) % Platelet Estimate (NORMAL) Hypochromasia (manual) Poikilocytosis (manual Anisocytosis (manual) Target Cells [place] Cells PT 15.9 H (9.7-12.2) SECONDS INR 1.5 APTT 40 H (21-34) SECONDS Puncture Site pCO2 (35-45) mm/Hg pO2 (80-100) mm/Hg HCO3 (21-28) mmol/L ABG pH (7.35-7.45) ABG Total CO2 (22-28) mmol/L ABG O2 Saturation (95-98) % ABG Base Excess (-2.0-3.0) mmol/L ABG Hemoglobin (11.7-17.4) g/dL ABG Carboxyhemoglobin (0.5-1.5) % POC ABG HHb (Measured) (0.0-5.0) % ABG Methemoglobin (0.0-3.0) % Richard Test ABG Potassium (3.6-5.2) mmol/L A-a O2 Difference mm/Hg Respiratory Index Hgb O2 Saturation (95.0-98.0) % Glucose (65-105) mg/dl Lactate (0.7-2.1) mmol/L Vent Mode Mechanical Rate FiO2 % Tidal Volume PEEP Crit Value Called To Crit Value Called By Crit Value Read Back Blood Gas Notified Time Sodium (132-148) mmol/L Potassium (3.6-5.2) mmol/L Chloride (98-107) mmol/L Carbon Dioxide (22-30) mmol/L Anion Gap (10-20) BUN (7-17) mg/dL Creatinine (0.7-1.2) mg/dL Est GFR ( Amer) Est GFR (Non-Af Amer) POC Glucose (mg/dL) 130 H (65-110) mg/dL Random Glucose (65-105) mg/dL Calcium (8.6-10.4) mg/dl Phosphorus (2.5-4.5) mg/dL Magnesium (1.6-2.3) mg/dL Total Bilirubin (0.2-1.3) mg/dL AST (14-36) U/L ALT (9-52) U/L Alkaline Phosphatase (38-126) U/L Total Protein (6.3-8.3) g/dL Albumin (3.5-5.0) g/dL Globulin (2.2-3.9) gm/dL Albumin/Globulin Ratio (1.0-2.1) Lipase (23-300) U/L Arterial Blood Potassium (3.6-5.2) mmol/L Urine Color (YELLOW) Urine Clarity (Clear) Urine pH (5.0-8.0) Ur Specific Carpenter (1.003-1.030) Urine Protein (NEGATIVE) mg/dL Urine Glucose (UA) (Normal) mg/dL Urine Ketones (NEGATIVE) mg/dL Urine Blood (NEGATIVE) Urine Nitrate (NEGATIVE) Urine Bilirubin (NEGATIVE) Urine Urobilinogen (0.2-1.0) mg/dL Ur Leukocyte Esterase (Negative) Orin/uL Urine WBC (Auto) (0-5) /hpf Urine RBC (Auto) (0-3) /hpf Urine Chloride 112 (32-290) mmol/L Blood Type Antibody Screen 12/16/17 Range/Units 09:12 WBC (4.8-10.8) K/uL RBC (3.80-5.20) Mil/uL Hgb (11.0-16.0) g/dL Hct (34.0-47.0) % MCV (81.0-99.0) fL MCH (27.0-31.0) pg MCHC (33.0-37.0) g/dL RDW (11.5-14.5) % Plt Count (130-400) K/uL MPV (7.2-11.7) fL Neut % (Auto) (50.0-75.0) % Lymph % (Auto) (20.0-40.0) % [place] % (Auto) (0.0-10.0) % Eos % (Auto) (0.0-4.0) % Baso % (Auto) (0.0-2.0) % Neut # (Auto) (1.8-7.0) K/uL Lymph # (Auto) (1.0-4.3) K/uL [place] # (Auto) (0.0-0.8) K/uL Eos # (Auto) (0.0-0.7) K/uL Baso # (Auto) (0.0-0.2) K/uL Neutrophils % (Manual) (50-75) % Band Neutrophils % (0-2) % Lymphocytes % (Manual) (20-40) % Monocytes % (Manual) (0-10) % Basophils % (Manual) (0-2) % Platelet Estimate (NORMAL) Hypochromasia (manual) Poikilocytosis (manual Anisocytosis (manual) Target Cells Nancy Cells PT (9.7-12.2) SECONDS INR APTT (21-34) SECONDS Puncture Site pCO2 (35-45) mm/Hg pO2 (80-100) mm/Hg HCO3 (21-28) mmol/L ABG pH (7.35-7.45) ABG Total CO2 (22-28) mmol/L ABG O2 Saturation (95-98) % ABG Base Excess (-2.0-3.0) mmol/L ABG Hemoglobin (11.7-17.4) g/dL ABG Carboxyhemoglobin (0.5-1.5) % POC ABG HHb (Measured) (0.0-5.0) % ABG Methemoglobin (0.0-3.0) % Richard Test ABG Potassium (3.6-5.2) mmol/L A-a O2 Difference mm/Hg Respiratory Index Hgb O2 Saturation (95.0-98.0) % Glucose (65-105) mg/dl Lactate (0.7-2.1) mmol/L Vent Mode Mechanical Rate FiO2 % Tidal Volume PEEP Crit Value Called To Crit Value Called By Crit Value Read Back Blood Gas Notified Time Sodium (132-148) mmol/L Potassium (3.6-5.2) mmol/L Chloride (98-107) mmol/L Carbon Dioxide (22-30) mmol/L Anion Gap (10-20) BUN (7-17) mg/dL Creatinine (0.7-1.2) mg/dL Est GFR ( Amer) Est GFR (Non-Af Amer) POC Glucose (mg/dL) (65-110) mg/dL Random Glucose (65-105) mg/dL Calcium (8.6-10.4) mg/dl Phosphorus (2.5-4.5) mg/dL Magnesium (1.6-2.3) mg/dL Total Bilirubin (0.2-1.3) mg/dL AST (14-36) U/L ALT (9-52) U/L Alkaline Phosphatase (38-126) U/L Total Protein (6.3-8.3) g/dL Albumin (3.5-5.0) g/dL Globulin (2.2-3.9) gm/dL Albumin/Globulin Ratio (1.0-2.1) Lipase (23-300) U/L Arterial Blood Potassium (3.6-5.2) mmol/L Urine Color (YELLOW) Urine Clarity (Clear) Urine pH (5.0-8.0) Ur Specific [place] (1.003-1.030) Urine Protein (NEGATIVE) mg/dL Urine Glucose (UA) (Normal) mg/dL Urine Ketones (NEGATIVE) mg/dL Urine Blood (NEGATIVE) Urine Nitrate (NEGATIVE) Urine Bilirubin (NEGATIVE) Urine Urobilinogen (0.2-1.0) mg/dL Ur Leukocyte Esterase (Negative) Orin/uL Urine WBC (Auto) (0-5) /hpf Urine RBC (Auto) (0-3) /hpf Urine Chloride (32-290) mmol/L Blood Type O POSITIVE Antibody Screen Negative Laboratory Results - last 24 hr 12/16/17 12/18/17 12/18/17 09:12 08:32 11:34 WBC RBC Hgb Hct MCV MCH MCHC RDW Plt Count MPV Neut % (Auto) Lymph % (Auto) Me[place] % (Auto) Eos % (Auto) Baso % (Auto) Neut # (Auto) Lymph # (Auto) [place] # (Auto) Eos # (Auto) Baso # (Auto) Neutrophils % (Manual) Band Neutrophils % Lymphocytes % (Manual) Monocytes % (Manual) Basophils % (Manual) Platelet Estimate Hypochromasia (manual) Poikilocytosis (manual Anisocytosis (manual) Target Cells [place] Cells PT INR APTT Puncture Site pCO2 pO2 HCO3 ABG pH ABG Total CO2 ABG O2 Saturation ABG Base Excess ABG Hemoglobin ABG Carboxyhemoglobin POC ABG HHb (Measured) ABG Methemoglobin Richard Test ABG Potassium A-a O2 Difference Respiratory Index Hgb O2 Saturation Glucose Lactate Vent Mode Mechanical Rate FiO2 Tidal Volume PEEP Crit Value Called To Crit Value Called By Crit Value Read Back Blood Gas Notified Time Sodium Potassium Chloride Carbon Dioxide Anion Gap BUN Creatinine Est GFR ( Amer) Est GFR (Non-Af Amer) POC Glucose (mg/dL) 130 H Random Glucose Calcium Phosphorus Magnesium Total Bilirubin AST ALT Alkaline Phosphatase Total Protein Albumin Globulin Albumin/Globulin Ratio Lipase Arterial Blood Potassium Urine Color Urine Clarity Urine pH Ur Specific Carpenter Urine Protein Urine Glucose (UA) Urine Ketones Urine Blood Urine Nitrate Urine Bilirubin Urine Urobilinogen Ur Leukocyte Esterase Urine WBC (Auto) Urine RBC (Auto) Urine Chloride 112 Blood Type O POSITIVE Antibody Screen Negative 12/18/17 12/18/17 12/18/17 12:39 18:44 18:44 WBC 6.3 RBC 4.20 Hgb 11.9 D Hct 38.2 MCV 90.8 D MCH 28.3 MCHC 31.1 L RDW 15.0 H Plt Count 182 MPV 10.1 Neut % (Auto) 76.6 H Lymph % (Auto) 17.1 L Meigs % (Auto) 5.6 Eos % (Auto) 0.1 Baso % (Auto) 0.6 Neut # (Auto) 4.8 Lymph # (Auto) 1.1 [place] # (Auto) 0.3 Eos # (Auto) 0.0 Baso # (Auto) 0.0 Neutrophils % (Manual) 19 L Band Neutrophils % 43 H* Lymphocytes % (Manual) 20 Monocytes % (Manual) 8 Basophils % (Manual) Platelet Estimate Normal Hypochromasia (manual) Slight Poikilocytosis (manual Slight Anisocytosis (manual) Slight Target Cells Slight Nancy Cells Slight PT 15.9 H INR 1.5 APTT 40 H Puncture Site pCO2 pO2 HCO3 ABG pH ABG Total CO2 ABG O2 Saturation ABG Base Excess ABG Hemoglobin ABG Carboxyhemoglobin POC ABG HHb (Measured) ABG Methemoglobin Richard Test ABG Potassium A-a O2 Difference Respiratory Index Hgb O2 Saturation Glucose Lactate Vent Mode Mechanical Rate FiO2 Tidal Volume PEEP Crit Value Called To Crit Value Called By Crit Value Read Back Blood Gas Notified Time Sodium 144 Potassium 3.7 Chloride 120 H Carbon Dioxide 12 L Anion Gap 17 BUN 47 H Creatinine 3.1 H Est GFR ( Amer) 18 Est GFR (Non-Af Amer) 14 POC Glucose (mg/dL) Random Glucose 95 Calcium 3.9 L* D Phosphorus 3.4 Magnesium 1.2 L Total Bilirubin 0.6 AST 130 H D ALT 100 H Alkaline Phosphatase < 20 L D Total Protein 3.7 L Albumin 1.7 L D Globulin 1.9 L Albumin/Globulin Ratio 0.9 L Lipase Arterial Blood Potassium Urine Color Urine Clarity Urine pH Ur Specific Carpenter Urine Protein Urine Glucose (UA) Urine Ketones Urine Blood Urine Nitrate Urine Bilirubin Urine Urobilinogen Ur Leukocyte Esterase Urine WBC (Auto) Urine RBC (Auto) Urine Chloride Blood Type Antibody Screen 12/18/17 12/18/17 12/18/17 18:57 19:02 19:59 WBC RBC Hgb Hct MCV MCH MCHC RDW Plt Count MPV Neut % (Auto) Lymph % (Auto) [place] % (Auto) Eos % (Auto) Baso % (Auto) Neut # (Auto) Lymph # (Auto) [place] # (Auto) Eos # (Auto) Baso # (Auto) Neutrophils % (Manual) Band Neutrophils % Lymphocytes % (Manual) Monocytes % (Manual) Basophils % (Manual) Platelet Estimate Hypochromasia (manual) Poikilocytosis (manual Anisocytosis (manual) Target Cells [place] Cells PT INR APTT Puncture Site Rba pCO2 38 pO2 119 H HCO3 12.6 L ABG pH 7.13 L* ABG Total CO2 13.8 L ABG O2 Saturation 99.6 H ABG Base Excess -15.8 L ABG Hemoglobin 14.5 ABG Carboxyhemoglobin 1.5 POC ABG HHb (Measured) 0.4 ABG Methemoglobin 1.0 Richard Test Na ABG Potassium A-a O2 Difference 547.0 Respiratory Index 4.6 Hgb O2 Saturation 97.0 Glucose Lactate Vent Mode Prvc Mechanical Rate FiO2 100.0 Tidal Volume 500 PEEP 5 Crit Value Called To [facility] agricultural commodities inspector Crit Value Called By Mandeep Crit Value Read Back Y Blood Gas Notified Time 1906 Sodium 142 Potassium 4.5 Chloride 112 H Carbon Dioxide 14 L Anion Gap 20 BUN 61 H Creatinine 4.6 H Est GFR ( Amer) 11 Est GFR (Non-Af Amer) 9 POC Glucose (mg/dL) 150 H Random Glucose 127 H Calcium 5.2 L* D Phosphorus 5.2 H Magnesium 1.5 L Total Bilirubin 0.7 AST 188 H D ALT 119 H Alkaline Phosphatase 34 L D Total Protein 5.3 L Albumin 2.7 L D Globulin 2.6 Albumin/Globulin Ratio 1.0 Lipase Arterial Blood Potassium Urine Color Urine Clarity Urine pH Ur Specific [place] Urine Protein Urine Glucose (UA) Urine Ketones Urine Blood Urine Nitrate Urine Bilirubin Urine Urobilinogen Ur Leukocyte Esterase Urine WBC (Auto) Urine RBC (Auto) Urine Chloride Blood Type Antibody Screen 12/18/17 12/18/17 12/19/17 21:58 23:44 05:00 WBC RBC Hgb Hct MCV MCH MCHC RDW Plt Count MPV Neut % (Auto) Lymph % (Auto) [place] % (Auto) Eos % (Auto) Baso % (Auto) Neut # (Auto) Lymph # (Auto) [place] # (Auto) Eos # (Auto) Baso # (Auto) Neutrophils % (Manual) Band Neutrophils % Lymphocytes % (Manual) Monocytes % (Manual) Basophils % (Manual) Platelet Estimate Hypochromasia (manual) Poikilocytosis (manual Anisocytosis (manual) Target Cells [place] Cells PT INR APTT Puncture Site Rba Rr pCO2 32 L 34 L pO2 219 H 158 H HCO3 14.5 L 16.9 L ABG pH 7.22 L 7.27 L ABG Total CO2 14.1 L 16.6 L ABG O2 Saturation 100.2 H 99.8 H ABG Base Excess -13.4 L -10.3 L ABG Hemoglobin ABG Carboxyhemoglobin POC ABG HHb (Measured) ABG Methemoglobin Richard Test Na Pos ABG Potassium 4.1 4.1 A-a O2 Difference 454.0 513.0 Respiratory Index 2.1 3.2 Hgb O2 Saturation Glucose 146 H 151 H Lactate 2.5 H 2.1 Vent Mode Prvc Prvc Mechanical Rate 14 14 FiO2 100.0 100.0 Tidal Volume 500 500 PEEP 5 5 Crit Value Called To Crit Value Called By Crit Value Read Back Blood Gas Notified Time Sodium 138.0 138.0 Potassium Chloride 111.0 H 108.0 H Carbon Dioxide Anion Gap BUN Creatinine Est GFR ( Amer) Est GFR (Non-Af Amer) POC Glucose (mg/dL) 149 H Random Glucose Calcium Phosphorus Magnesium Total Bilirubin AST ALT Alkaline Phosphatase Total Protein Albumin Globulin Albumin/Globulin Ratio Lipase Arterial Blood Potassium 4.1 4.1 Urine Color Urine Clarity Urine pH Ur Specific [place] Urine Protein Urine Glucose (UA) Urine Ketones Urine Blood Urine Nitrate Urine Bilirubin Urine Urobilinogen Ur Leukocyte Esterase Urine WBC (Auto) Urine RBC (Auto) Urine Chloride Blood Type Antibody Screen 12/19/17 12/19/17 12/19/17 05:30 06:24 06:24 WBC 7.0 RBC 4.29 Hgb 12.2 Hct 37.8 MCV 88.0 D MCH 28.3 MCHC 32.2 L RDW 14.5 Plt Count 170 MPV 11.0 Neut % (Auto) 83.3 H Lymph % (Auto) 9.7 L [place] % (Auto) 6.8 Eos % (Auto) 0.1 Baso % (Auto) 0.1 Neut # (Auto) 5.9 Lymph # (Auto) 0.7 L [place] # (Auto) 0.5 Eos # (Auto) 0.0 Baso # (Auto) 0.0 Neutrophils % (Manual) 55 Band Neutrophils % 24 H* Lymphocytes % (Manual) 13 L Monocytes % (Manual) 7 Basophils % (Manual) 1 Platelet Estimate Normal Hypochromasia (manual) Poikilocytosis (manual Anisocytosis (manual) Target Cells [place] Cells PT INR APTT Puncture Site pCO2 pO2 HCO3 ABG pH ABG Total CO2 ABG O2 Saturation ABG Base Excess ABG Hemoglobin ABG Carboxyhemoglobin POC ABG HHb (Measured) ABG Methemoglobin Richard Test ABG Potassium A-a O2 Difference Respiratory Index Hgb O2 Saturation Glucose Lactate Vent Mode Mechanical Rate FiO2 Tidal Volume PEEP Crit Value Called To Crit Value Called By Crit Value Read Back Blood Gas Notified Time Sodium 143 Potassium 5.0 Chloride 111 H Carbon Dioxide 16 L Anion Gap 21 H BUN 66 H Creatinine 4.5 H Est GFR ( Amer) 11 Est GFR (Non-Af Amer) 9 POC Glucose (mg/dL) 154 H Random Glucose 123 H Calcium 4.8 L* Phosphorus 3.9 Magnesium 1.5 L Total Bilirubin 1.0 AST 139 H D ALT 84 H D Alkaline Phosphatase 23 L D Total Protein 5.6 L Albumin 2.7 L Globulin 2.9 Albumin/Globulin Ratio 0.9 L Lipase 329 H Arterial Blood Potassium Urine Color Urine Clarity Urine pH Ur Specific [place] Urine Protein Urine Glucose (UA) Urine Ketones Urine Blood Urine Nitrate Urine Bilirubin Urine Urobilinogen Ur Leukocyte Esterase Urine WBC (Auto) Urine RBC (Auto) Urine Chloride Blood Type Antibody Screen 12/19/17 10:05 WBC RBC Hgb Hct MCV MCH MCHC RDW Plt Count MPV Neut % (Auto) Lymph % (Auto) [place] % (Auto) Eos % (Auto) Baso % (Auto) Neut # (Auto) Lymph # (Auto) [place] # (Auto) Eos # (Auto) Baso # (Auto) Neutrophils % (Manual) Band Neutrophils % Lymphocytes % (Manual) Monocytes % (Manual) Basophils % (Manual) Platelet Estimate Hypochromasia (manual) Poikilocytosis (manual Anisocytosis (manual) Target Cells [place] Cells PT INR APTT Puncture Site pCO2 pO2 HCO3 ABG pH ABG Total CO2 ABG O2 Saturation ABG Base Excess ABG Hemoglobin ABG Carboxyhemoglobin POC ABG HHb (Measured) ABG Methemoglobin Richard Test ABG Potassium A-a O2 Difference Respiratory Index Hgb O2 Saturation Glucose Lactate Vent Mode Mechanical Rate FiO2 Tidal Volume PEEP Crit Value Called To Crit Value Called By Crit Value Read Back Blood Gas Notified Time Sodium Potassium Chloride Carbon Dioxide Anion Gap BUN Creatinine Est GFR ( Amer) Est GFR (Non-Af Amer) POC Glucose (mg/dL) Random Glucose Calcium Phosphorus Magnesium Total Bilirubin AST ALT Alkaline Phosphatase Total Protein Albumin Globulin Albumin/Globulin Ratio Lipase Arterial Blood Potassium Urine Color Blue Urine Clarity Hazy Urine pH 5.0 Ur Specific [place] 1.020 Urine Protein 2+ H Urine Glucose (UA) 1+ Urine Ketones Trace Urine Blood 2+ H Urine Nitrate Negative Urine Bilirubin Negative Urine Urobilinogen Normal Ur Leukocyte Esterase Negative Urine WBC (Auto) 2 Urine RBC (Auto) 47 H Urine Chloride Blood Type Antibody Screen EKG/Cardiology Studies: Cardiology / EKG Studies 12/18/17 12:21 EKG [ELECTROCARDIOGRAM] Stat Comment: Mode Of Transportation: Reason For Exam: preop Fingerstick Blood Sugar Results: 130 Critical Care Progress Note - Nutrition Nutrition: Nutrition Category Date Time Status NPO Diet [DIET] Diets 12/19/17 Breakfast Active Assessment/Plan - Assessment and Plan (Free Text) Assessment: This is a 77yo female with history of hypertension, COPD, breast cancer s/p lumpectomy that presented to same day 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 During the procedure, patient experienced a significant amount of bleeding which was treated with a combination of clipping , electrocautery and epinephrine. Bleeding was significantly reduced however patient was subsequently admitted to ICU for close observation. She had underwent EGD/Colonoscopy on 12/05/17 due to worsening reflux symptoms with progressive substernal burning that started approximately 2 months prior. At that time, EGD/Colonsocopy was significant for duodenal nodule that was biopsied and revealed well differentiated neuroendocrine tumor. Patient was admitted to ICU due to SBP 220/140s initially on cardene drip x 1 - 2 hours- now normotensive; patient now in ATN with CRE of 4.5, bandemia downtrending with elevated procal, lactate initially 2.4 now 1.7. Returned to OR 12/18/17 due to increasing free air noted on repeat CT scan ; s/p ex lap primary repair of duodenal perforation, jourdan patch. Omentectomy. 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 Alatorre - Previous hemorrhage - stabilized with a combination of clipping, electrocautery and epinephrine. - Started on PPI drip, IVF - Zosyn as per GI switched to Merro 500MG Q12 (renal dose) 12/18/17 - Ct chest, abdomen, pelvis 2/2 abdominal pain and guarding on exam: Mild increase in the extent of pneumoperitoneum. Increasing ascites. Extensive gas adjacent to 2nd duodenum and nasim hepatis. Status post cholecystectomy. Nasogastric tube. Fluid in retroperitoneum and gas in perinephric space on right side. Cannot rule out pancreatitis. Please correlate. Trace right pleural effusion. No pulmonary infiltrate. - Upper GI series - Free air noted - As per surgery patient is for OR due to increasing free air ; s/p ex lap primary repair of duodenal perforation, jourdan patch. Omentectomy. 12/18 A: Pancreatic nodule - Questionable 9 mm rounded fluid density mass in the pancreatic body. This was not clearly appreciated on prior CT examination of 12/16/2017. Further evaluation is advised when clinically feasible with multiphasic contrast- enhanced CT. A: Transaminitis, Elevated T. Bili - downtrending - Viral hepatitis - negative - Abominal US - Diffuse increased echogenicity in the liver may reflect hepatic steatosis however parenchymal infectious/ inflammatory etiologies cannot be entirely excluded. Clinical and laboratory correlation is advised. Mild perihepatic ascites. Endo: A: Thyroid Nodule - There is a 1.9 cm mass in the lower pole of the left thyroid lobe. - Correlate with thyroid ultrasound examination. A: Hypocalcemia - Calcium Carbonate/ Vitamin D 2 tab PO BID, Calcitriol 0.5 mg PO daily A: IGT - HgA1c 5.9 Renal: A: ATN - 2/2 to fluctuation in BP? ABX? - Abdominal US- no sign of renal obstruction - Changed zosyn to Merro renally dosed - Inserted bruce - minimal urine output - Mucomyst 1200mg PO Q12 x 4 doses - Bumex 2mg IV x1, Calcium Gluconate x 4 grams ID: A: Bandemia - Afebrile, vitals stable, no leukocytosis, no source of infection - Patient was prince-cultured 12/17/17 - all negative - Bandemia increasing- 61, Procal - 12.04, lactate 2.4--> 1.7 - Changed zosyn to Meropenem renally dosed Heme/ Onc: A: Hx breast cancer s/p lumpectomy Protonix - Protonix Drip - SCDs, VTE c/i post op / concern for bleeding Disposition: Continue to monitor renal function, Urine Output, maintain permissive HTN DW Dr. Milton Garcia, Estefania Veliz DO, PGY-1 <Milton Garcia M - Last Filed: 12/19/17 18:31> CCU Subjective - Physician Review Critical Care Time Spent (in minutes): 45 CCU Objective - Vital Signs / Intake & Output Vital Signs (Last 4 hours): Vital Signs Temp Pulse Resp BP Pulse Ox 12/19/17 16:00 97.6 F 119 H 23 103/46 L 97 12/19/17 15:00 110 H 21 126/48 L 97 Intake and Output (Last 8hrs): Intake & Output 12/19/17 12/19/17 12/19/17 06:59 14:59 22:59 Intake Total 1080 1515 520 Output Total 280 355 70 Balance 800 1160 450 Weight 235 lb Intake: Intake, IV Amount 1080 1315 520 Left Distal Port Hand 80 70 30 Left Hand 400 700 250 Rt AC 600 545 240 Other 200 Output: Drainage 280 340 KORI 1 160 145 KORI 2 120 195 Urine 15 70 Urethral (Bruce) 15 70 - Medications Active Medications: Active Medications Generic Name Dose Route Start Last Admin Trade Name Freq PRN Reason Stop Dose Admin Acetaminophen 650 mg 06/13/18 18:04 Tylenol 650 Mg Supp AR Q4 PRN Fever >100.4 F Albumin Human 25 gm 12/19/17 18:15 Albumin Human 25% (12.5 Gm/50 Ml) IV 12/21/17 00:16 Q6H FESTUS Albuterol/Ipratropium 3 ml 12/16/17 12:03 12/18/17 20:12 Duoneb 3 Mg/0.5 Mg (3 Ml) Ud INH 3 ml RQ4 PRN Administration Shortness of Breath Dextrose 0 ml 12/16/17 12:08 Dextrose 50% Inj IV STAT PRN Hypoglycemia Protocol Protocol Dextrose 15 gm 12/16/17 12:08 Glutose 15 PO ONCE PRN Hypoglycemia Protocol Protocol Glucagon 1 mg 12/16/17 12:08 Glucagen Diagnostic Kit IM STAT PRN Hypoglycemia Protocol Protocol Hydromorphone HCl 0.5 mg 12/17/17 09:53 12/18/17 13:04 Dilaudid IVP 0.5 mg Q4H PRN Administration Pain, severe (8-10) Pantoprazole Sodium 80 mg/ 100 mls @ 10 mls/hr 12/16/17 09:35 12/19/17 17:09 Sodium Chloride IV 10 mls/hr .Q10H FESTUS Administration 8 MG/HR Dextrose 1,000 mls @ 0 mls/hr 12/16/17 12:08 Dextrose 5% In Water 1000 Ml IV .Q0M PRN Hypoglycemia Protocol Protocol Per Protocol Meropenem 500 mg/ Sodium 100 mls @ 100 mls/hr 12/18/17 10:00 12/19/17 09:57 Chloride IVPB 100 mls/hr Q12 FESTUS Administration Protocol BUPIVACAINE 0.125%/0.9% NACL 600 mls @ 4 mls/hr 12/18/17 16:00 12/18/17 18:20 Bupivacaine-Ns 0.125% On-Q Educational Consultant IJ 12/24/17 21:59 Not Given ONCE ONE Sodium Bicarbonate 150 meq/ 1,150 mls @ 80 mls/hr 12/19/17 09:30 12/19/17 10: 42 Dextrose IV 80 mls/hr .[id number] FESTUS Administration Multivitamins/Vitamin C 10 ml/ 1,010 mls @ 84 mls/hr 12/19/17 18:00 12/19/17 17:38 Amino Acids IV 12/20/17 06:01 84 mls/hr .[id number] FESTUS Administration Amino Acids 1,000 mls @ 84 mls/hr 12/20/17 06:02 Clinimix 4.25/5 % "E" (1000 Ml) IV 12/20/17 17:59 .[id number] FESTUS Lactated Ringer's 1,000 mls @ 1,000 mls/hr 12/19/17 18:07 Lactated Ringer's IV 12/19/17 19:06 .Q1H ONE Insulin Human Regular 0 unit 12/19/17 00:00 12/19/17 17:37 Novolin R SC Not Given Q6 [facility] Protocol Ondansetron HCl 4 mg 12/18/17 18:03 Zofran Inj IVP Q4 PRN Nausea/Vomiting - Patient Studies Lab Studies: Microbiology Studies 12/17/17 16:00 Blood Culture - Preliminary Blood-Venous NO GROWTH AFTER 48 HOURS 12/17/17 16:40 Blood Culture - Preliminary Blood-Venous NO GROWTH AFTER 48 HOURS 12/18/17 08:27 Urine Culture - Final Urine No Growth (<1,000 CFU/ML) Lab Studies 12/19/17 12/19/17 12/19/17 Range/Units 17:28 11:36 10:45 WBC (4.8-10.8) K/uL RBC (3.80-5.20) Mil/uL Hgb (11.0-16.0) g/dL Hct (34.0-47.0) % MCV (81.0-99.0) fL MCH (27.0-31.0) pg MCHC (33.0-37.0) g/dL RDW (11.5-14.5) % Plt Count (130-400) K/uL MPV (7.2-11.7) fL Neut % (Auto) (50.0-75.0) % Lymph % (Auto) (20.0-40.0) % [place] % (Auto) (0.0-10.0) % Eos % (Auto) (0.0-4.0) % Baso % (Auto) (0.0-2.0) % Neut # (Auto) (1.8-7.0) K/uL Lymph # (Auto) (1.0-4.3) K/uL [place] # (Auto) (0.0-0.8) K/uL Eos # (Auto) (0.0-0.7) K/uL Baso # (Auto) (0.0-0.2) K/uL Neutrophils % (Manual) (50-75) % Band Neutrophils % (0-2) % Lymphocytes % (Manual) (20-40) % Monocytes % (Manual) (0-10) % Basophils % (Manual) (0-2) % Platelet Estimate (NORMAL) Hypochromasia (manual) Poikilocytosis (manual Anisocytosis (manual) Target Cells Nancy Cells Puncture Site pCO2 (35-45) mm/Hg pO2 (80-100) mm/Hg HCO3 (21-28) mmol/L ABG pH (7.35-7.45) ABG Total CO2 (22-28) mmol/L ABG O2 Saturation (95-98) % ABG Base Excess (-2.0-3.0) mmol/L ABG Hemoglobin (11.7-17.4) g/dL ABG Carboxyhemoglobin (0.5-1.5) % POC ABG HHb (Measured) (0.0-5.0) % ABG Methemoglobin (0.0-3.0) % Richard Test ABG Potassium (3.6-5.2) mmol/L A-a O2 Difference mm/Hg Respiratory Index Hgb O2 Saturation (95.0-98.0) % Glucose (65-105) mg/dl Lactate (0.7-2.1) mmol/L Vent Mode Mechanical Rate FiO2 % Tidal Volume PEEP Crit Value Called To Crit Value Called By Crit Value Read Back Blood Gas Notified Time Sodium (132-148) mmol/L Potassium (3.6-5.2) mmol/L Chloride (98-107) mmol/L Carbon Dioxide (22-30) mmol/L Anion Gap (10-20) BUN (7-17) mg/dL Creatinine (0.7-1.2) mg/dL Est GFR ( Amer) Est GFR (Non-Af Amer) POC Glucose (mg/dL) 109 133 H (65-110) mg/dL Random Glucose (65-105) mg/dL Calcium (8.6-10.4) mg/dl Phosphorus (2.5-4.5) mg/dL Magnesium (1.6-2.3) mg/dL Total Bilirubin (0.2-1.3) mg/dL AST (14-36) U/L ALT (9-52) U/L Alkaline Phosphatase (38-126) U/L Total Protein (6.3-8.3) g/dL Albumin (3.5-5.0) g/dL Globulin (2.2-3.9) gm/dL Albumin/Globulin Ratio (1.0-2.1) Lipase (23-300) U/L 25-OH Vitamin D Total 23.7 L (30.0-100.0) NG/ML Arterial Blood Potassium (3.6-5.2) mmol/L Urine Color (YELLOW) Urine Clarity (Clear) Urine pH (5.0-8.0) Ur Specific [place] (1.003-1.030) Urine Protein (NEGATIVE) mg/dL Urine Glucose (UA) (Normal) mg/dL Urine Ketones (NEGATIVE) mg/dL Urine Blood (NEGATIVE) Urine Nitrate (NEGATIVE) Urine Bilirubin (NEGATIVE) Urine Urobilinogen (0.2-1.0) mg/dL Ur Leukocyte Esterase (Negative) Orin/uL Urine WBC (Auto) (0-5) /hpf Urine RBC (Auto) (0-3) /hpf Urine Chloride (32-290) mmol/L Blood Type Antibody Screen 12/19/17 12/19/17 12/19/17 Range/Units 10:05 06:24 06:24 WBC 7.0 (4.8-10.8) K/uL RBC 4.29 (3.80-5.20) Mil/uL Hgb 12.2 (11.0-16.0) g/dL Hct 37.8 (34.0-47.0) % MCV 88.0 D (81.0-99.0) fL MCH 28.3 (27.0-31.0) pg MCHC 32.2 L (33.0-37.0) g/dL RDW 14.5 (11.5-14.5) % Plt Count 170 (130-400) K/uL MPV 11.0 (7.2-11.7) fL Neut % (Auto) 83.3 H (50.0-75.0) % Lymph % (Auto) 9.7 L (20.0-40.0) % [place] % (Auto) 6.8 (0.0-10.0) % Eos % (Auto) 0.1 (0.0-4.0) % Baso % (Auto) 0.1 (0.0-2.0) % Neut # (Auto) 5.9 (1.8-7.0) K/uL Lymph # (Auto) 0.7 L (1.0-4.3) K/uL [place] # (Auto) 0.5 (0.0-0.8) K/uL Eos # (Auto) 0.0 (0.0-0.7) K/uL Baso # (Auto) 0.0 (0.0-0.2) K/uL Neutrophils % (Manual) 55 (50-75) % Band Neutrophils % 24 H* (0-2) % Lymphocytes % (Manual) 13 L (20-40) % Monocytes % (Manual) 7 (0-10) % Basophils % (Manual) 1 (0-2) % Platelet Estimate Normal (NORMAL) Hypochromasia (manual) Poikilocytosis (manual Anisocytosis (manual) Target Cells [place] Cells Puncture Site pCO2 (35-45) mm/Hg pO2 (80-100) mm/Hg HCO3 (21-28) mmol/L ABG pH (7.35-7.45) ABG Total CO2 (22-28) mmol/L ABG O2 Saturation (95-98) % ABG Base Excess (-2.0-3.0) mmol/L ABG Hemoglobin (11.7-17.4) g/dL ABG Carboxyhemoglobin (0.5-1.5) % POC ABG HHb (Measured) (0.0-5.0) % ABG Methemoglobin (0.0-3.0) % Richard Test ABG Potassium (3.6-5.2) mmol/L A-a O2 Difference mm/Hg Respiratory Index Hgb O2 Saturation (95.0-98.0) % Glucose (65-105) mg/dl Lactate (0.7-2.1) mmol/L Vent Mode Mechanical Rate FiO2 % Tidal Volume PEEP Crit Value Called To Crit Value Called By Crit Value Read Back Blood Gas Notified Time Sodium 143 (132-148) mmol/L Potassium 5.0 (3.6-5.2) mmol/L Chloride 111 H (98-107) mmol/L Carbon Dioxide 16 L (22-30) mmol/L Anion Gap 21 H (10-20) BUN 66 H (7-17) mg/dL Creatinine 4.5 H (0.7-1.2) mg/dL Est GFR ( Amer) 11 Est GFR (Non-Af Amer) 9 POC Glucose (mg/dL) (65-110) mg/dL Random Glucose 123 H (65-105) mg/dL Calcium 4.8 L* (8.6-10.4) mg/dl Phosphorus 3.9 (2.5-4.5) mg/dL Magnesium 1.5 L (1.6-2.3) mg/dL Total Bilirubin 1.0 (0.2-1.3) mg/dL AST 139 H D (14-36) U/L ALT 84 H D (9-52) U/L Alkaline Phosphatase 23 L D (38-126) U/L Total Protein 5.6 L (6.3-8.3) g/dL Albumin 2.7 L (3.5-5.0) g/dL Globulin 2.9 (2.2-3.9) gm/dL Albumin/Globulin Ratio 0.9 L (1.0-2.1) Lipase 329 H (23-300) U/L 25-OH Vitamin D Total (30.0-100.0) NG/ML Arterial Blood Potassium (3.6-5.2) mmol/L Urine Color Blue (YELLOW) Urine Clarity Hazy (Clear) Urine pH 5.0 (5.0-8.0) Ur Specific [place] 1.020 (1.003-1.030) Urine Protein 2+ H (NEGATIVE) mg/dL Urine Glucose (UA) 1+ (Normal) mg/dL Urine Ketones Trace (NEGATIVE) mg/dL Urine Blood 2+ H (NEGATIVE) Urine Nitrate Negative (NEGATIVE) Urine Bilirubin Negative (NEGATIVE) Urine Urobilinogen Normal (0.2-1.0) mg/dL Ur Leukocyte Esterase Negative (Negative) Orin/uL Urine WBC (Auto) 2 (0-5) /hpf Urine RBC (Auto) 47 H (0-3) /hpf Urine Chloride (32-290) mmol/L Blood Type Antibody Screen 12/19/17 12/19/17 12/18/17 Range/Units 05:30 05:00 23:44 WBC (4.8-10.8) K/uL RBC (3.80-5.20) Mil/uL Hgb (11.0-16.0) g/dL Hct (34.0-47.0) % MCV (81.0-99.0) fL MCH (27.0-31.0) pg MCHC (33.0-37.0) g/dL RDW (11.5-14.5) % Plt Count (130-400) K/uL MPV (7.2-11.7) fL Neut % (Auto) (50.0-75.0) % Lymph % (Auto) (20.0-40.0) % [place] % (Auto) (0.0-10.0) % Eos % (Auto) (0.0-4.0) % Baso % (Auto) (0.0-2.0) % Neut # (Auto) (1.8-7.0) K/uL Lymph # (Auto) (1.0-4.3) K/uL [place] # (Auto) (0.0-0.8) K/uL Eos # (Auto) (0.0-0.7) K/uL Baso # (Auto) (0.0-0.2) K/uL Neutrophils % (Manual) (50-75) % Band Neutrophils % (0-2) % Lymphocytes % (Manual) (20-40) % Monocytes % (Manual) (0-10) % Basophils % (Manual) (0-2) % Platelet Estimate (NORMAL) Hypochromasia (manual) Poikilocytosis (manual Anisocytosis (manual) Target Cells Nancy Cells Puncture Site Rr pCO2 34 L (35-45) mm/Hg pO2 158 H (80-100) mm/Hg HCO3 16.9 L (21-28) mmol/L ABG pH 7.27 L (7.35-7.45) ABG Total CO2 16.6 L (22-28) mmol/L ABG O2 Saturation 99.8 H (95-98) % ABG Base Excess -10.3 L (-2.0-3.0) mmol/L ABG Hemoglobin (11.7-17.4) g/dL ABG Carboxyhemoglobin (0.5-1.5) % POC ABG HHb (Measured) (0.0-5.0) % ABG Methemoglobin (0.0-3.0) % Richard Test Pos ABG Potassium 4.1 (3.6-5.2) mmol/L A-a O2 Difference 513.0 mm/Hg Respiratory Index 3.2 Hgb O2 Saturation (95.0-98.0) % Glucose 151 H (65-105) mg/dl Lactate 2.1 (0.7-2.1) mmol/L Vent Mode Prvc Mechanical Rate 14 FiO2 100.0 % Tidal Volume 500 PEEP 5 Crit Value Called To Crit Value Called By Crit Value Read Back Blood Gas Notified Time Sodium 138.0 (132-148) mmol/L Potassium (3.6-5.2) mmol/L Chloride 108.0 H (98-107) mmol/L Carbon Dioxide (22-30) mmol/L Anion Gap (10-20) BUN (7-17) mg/dL Creatinine (0.7-1.2) mg/dL Est GFR ( Amer) Est GFR (Non-Af Amer) POC Glucose (mg/dL) 154 H 149 H (65-110) mg/dL Random Glucose (65-105) mg/dL Calcium (8.6-10.4) mg/dl Phosphorus (2.5-4.5) mg/dL Magnesium (1.6-2.3) mg/dL Total Bilirubin (0.2-1.3) mg/dL AST (14-36) U/L ALT (9-52) U/L Alkaline Phosphatase (38-126) U/L Total Protein (6.3-8.3) g/dL Albumin (3.5-5.0) g/dL Globulin (2.2-3.9) gm/dL Albumin/Globulin Ratio (1.0-2.1) Lipase (23-300) U/L 25-OH Vitamin D Total (30.0-100.0) NG/ML Arterial Blood Potassium 4.1 (3.6-5.2) mmol/L Urine Color (YELLOW) Urine Clarity (Clear) Urine pH (5.0-8.0) Ur Specific Carpenter (1.003-1.030) Urine Protein (NEGATIVE) mg/dL Urine Glucose (UA) (Normal) mg/dL Urine Ketones (NEGATIVE) mg/dL Urine Blood (NEGATIVE) Urine Nitrate (NEGATIVE) Urine Bilirubin (NEGATIVE) Urine Urobilinogen (0.2-1.0) mg/dL Ur Leukocyte Esterase (Negative) Orin/uL Urine WBC (Auto) (0-5) /hpf Urine RBC (Auto) (0-3) /hpf Urine Chloride (32-290) mmol/L Blood Type Antibody Screen 12/18/17 12/18/17 12/18/17 Range/Units 21:58 19:59 19:02 WBC (4.8-10.8) K/uL RBC (3.80-5.20) Mil/uL Hgb (11.0-16.0) g/dL Hct (34.0-47.0) % MCV (81.0-99.0) fL MCH (27.0-31.0) pg MCHC (33.0-37.0) g/dL RDW (11.5-14.5) % Plt Count (130-400) K/uL MPV (7.2-11.7) fL Neut % (Auto) (50.0-75.0) % Lymph % (Auto) (20.0-40.0) % Meigs % (Auto) (0.0-10.0) % Eos % (Auto) (0.0-4.0) % Baso % (Auto) (0.0-2.0) % Neut # (Auto) (1.8-7.0) K/uL Lymph # (Auto) (1.0-4.3) K/uL Meigs # (Auto) (0.0-0.8) K/uL Eos # (Auto) (0.0-0.7) K/uL Baso # (Auto) (0.0-0.2) K/uL Neutrophils % (Manual) (50-75) % Band Neutrophils % (0-2) % Lymphocytes % (Manual) (20-40) % Monocytes % (Manual) (0-10) % Basophils % (Manual) (0-2) % Platelet Estimate (NORMAL) Hypochromasia (manual) Poikilocytosis (manual Anisocytosis (manual) Target Cells Nancy Cells Puncture Site Rba Rba pCO2 32 L 38 (35-45) mm/Hg pO2 219 H 119 H (80-100) mm/Hg HCO3 14.5 L 12.6 L (21-28) mmol/L ABG pH 7.22 L 7.13 L* (7.35-7.45) ABG Total CO2 14.1 L 13.8 L (22-28) mmol/L ABG O2 Saturation 100.2 H 99.6 H (95-98) % ABG Base Excess -13.4 L -15.8 L (-2.0-3.0) mmol/L ABG Hemoglobin 14.5 (11.7-17.4) g/dL ABG Carboxyhemoglobin 1.5 (0.5-1.5) % POC ABG HHb (Measured) 0.4 (0.0-5.0) % ABG Methemoglobin 1.0 (0.0-3.0) % Richard Test Na Na ABG Potassium 4.1 (3.6-5.2) mmol/L A-a O2 Difference 454.0 547.0 mm/Hg Respiratory Index 2.1 4.6 Hgb O2 Saturation 97.0 (95.0-98.0) % Glucose 146 H (65-105) mg/dl Lactate 2.5 H (0.7-2.1) mmol/L Vent Mode Prvc Prvc Mechanical Rate 14 FiO2 100.0 100.0 % Tidal Volume 500 500 PEEP 5 5 Crit Value Called To [facility] agricultural commodities inspector Crit Value Called By Mandeep Crit Value Read Back Y Blood Gas Notified Time 1906 Sodium 138.0 142 (132-148) mmol/L Potassium 4.5 (3.6-5.2) mmol/L Chloride 111.0 H 112 H (98-107) mmol/L Carbon Dioxide 14 L (22-30) mmol/L Anion Gap 20 (10-20) BUN 61 H (7-17) mg/dL Creatinine 4.6 H (0.7-1.2) mg/dL Est GFR ( Amer) 11 Est GFR (Non-Af Amer) 9 POC Glucose (mg/dL) (65-110) mg/dL Random Glucose 127 H (65-105) mg/dL Calcium 5.2 L* D (8.6-10.4) mg/dl Phosphorus 5.2 H (2.5-4.5) mg/dL Magnesium 1.5 L (1.6-2.3) mg/dL Total Bilirubin 0.7 (0.2-1.3) mg/dL AST 188 H D (14-36) U/L ALT 119 H (9-52) U/L Alkaline Phosphatase 34 L D (38-126) U/L Total Protein 5.3 L (6.3-8.3) g/dL Albumin 2.7 L D (3.5-5.0) g/dL Globulin 2.6 (2.2-3.9) gm/dL Albumin/Globulin Ratio 1.0 (1.0-2.1) Lipase (23-300) U/L 25-OH Vitamin D Total (30.0-100.0) NG/ML Arterial Blood Potassium 4.1 (3.6-5.2) mmol/L Urine Color (YELLOW) Urine Clarity (Clear) Urine pH (5.0-8.0) Ur Specific [place] (1.003-1.030) Urine Protein (NEGATIVE) mg/dL Urine Glucose (UA) (Normal) mg/dL Urine Ketones (NEGATIVE) mg/dL Urine Blood (NEGATIVE) Urine Nitrate (NEGATIVE) Urine Bilirubin (NEGATIVE) Urine Urobilinogen (0.2-1.0) mg/dL Ur Leukocyte Esterase (Negative) Orin/uL Urine WBC (Auto) (0-5) /hpf Urine RBC (Auto) (0-3) /hpf Urine Chloride (32-290) mmol/L Blood Type Antibody Screen 12/18/17 12/18/17 12/18/17 Range/Units 18:57 18:44 18:44 WBC 6.3 (4.8-10.8) K/uL RBC 4.20 (3.80-5.20) Mil/uL Hgb 11.9 D (11.0-16.0) g/dL Hct 38.2 (34.0-47.0) % MCV 90.8 D (81.0-99.0) fL MCH 28.3 (27.0-31.0) pg MCHC 31.1 L (33.0-37.0) g/dL RDW 15.0 H (11.5-14.5) % Plt Count 182 (130-400) K/uL MPV 10.1 (7.2-11.7) fL Neut % (Auto) 76.6 H (50.0-75.0) % Lymph % (Auto) 17.1 L (20.0-40.0) % [place] % (Auto) 5.6 (0.0-10.0) % Eos % (Auto) 0.1 (0.0-4.0) % Baso % (Auto) 0.6 (0.0-2.0) % Neut # (Auto) 4.8 (1.8-7.0) K/uL Lymph # (Auto) 1.1 (1.0-4.3) K/uL [place] # (Auto) 0.3 (0.0-0.8) K/uL Eos # (Auto) 0.0 (0.0-0.7) K/uL Baso # (Auto) 0.0 (0.0-0.2) K/uL Neutrophils % (Manual) 19 L (50-75) % Band Neutrophils % 43 H* (0-2) % Lymphocytes % (Manual) 20 (20-40) % Monocytes % (Manual) 8 (0-10) % Basophils % (Manual) (0-2) % Platelet Estimate Normal (NORMAL) Hypochromasia (manual) Slight Poikilocytosis (manual Slight Anisocytosis (manual) Slight Target Cells Slight [place] Cells Slight Puncture Site pCO2 (35-45) mm/Hg pO2 (80-100) mm/Hg HCO3 (21-28) mmol/L ABG pH (7.35-7.45) ABG Total CO2 (22-28) mmol/L ABG O2 Saturation (95-98) % ABG Base Excess (-2.0-3.0) mmol/L ABG Hemoglobin (11.7-17.4) g/dL ABG Carboxyhemoglobin (0.5-1.5) % POC ABG HHb (Measured) (0.0-5.0) % ABG Methemoglobin (0.0-3.0) % Richard Test ABG Potassium (3.6-5.2) mmol/L A-a O2 Difference mm/Hg Respiratory Index Hgb O2 Saturation (95.0-98.0) % Glucose (65-105) mg/dl Lactate (0.7-2.1) mmol/L Vent Mode Mechanical Rate FiO2 % Tidal Volume PEEP Crit Value Called To Crit Value Called By Crit Value Read Back Blood Gas Notified Time Sodium 144 (132-148) mmol/L Potassium 3.7 (3.6-5.2) mmol/L Chloride 120 H (98-107) mmol/L Carbon Dioxide 12 L (22-30) mmol/L Anion Gap 17 (10-20) BUN 47 H (7-17) mg/dL Creatinine 3.1 H (0.7-1.2) mg/dL Est GFR ( Amer) 18 Est GFR (Non-Af Amer) 14 POC Glucose (mg/dL) 150 H (65-110) mg/dL Random Glucose 95 (65-105) mg/dL Calcium 3.9 L* D (8.6-10.4) mg/dl Phosphorus 3.4 (2.5-4.5) mg/dL Magnesium 1.2 L (1.6-2.3) mg/dL Total Bilirubin 0.6 (0.2-1.3) mg/dL AST 130 H D (14-36) U/L ALT 100 H (9-52) U/L Alkaline Phosphatase < 20 L D (38-126) U/L Total Protein 3.7 L (6.3-8.3) g/dL Albumin 1.7 L D (3.5-5.0) g/dL Globulin 1.9 L (2.2-3.9) gm/dL Albumin/Globulin Ratio 0.9 L (1.0-2.1) Lipase (23-300) U/L 25-OH Vitamin D Total (30.0-100.0) NG/ML Arterial Blood Potassium (3.6-5.2) mmol/L Urine Color (YELLOW) Urine Clarity (Clear) Urine pH (5.0-8.0) Ur Specific [place] (1.003-1.030) Urine Protein (NEGATIVE) mg/dL Urine Glucose (UA) (Normal) mg/dL Urine Ketones (NEGATIVE) mg/dL Urine Blood (NEGATIVE) Urine Nitrate (NEGATIVE) Urine Bilirubin (NEGATIVE) Urine Urobilinogen (0.2-1.0) mg/dL Ur Leukocyte Esterase (Negative) Orin/uL Urine WBC (Auto) (0-5) /hpf Urine RBC (Auto) (0-3) /hpf Urine Chloride (32-290) mmol/L Blood Type Antibody Screen 12/18/17 12/16/17 Range/Units 08:32 09:12 WBC (4.8-10.8) K/uL RBC (3.80-5.20) Mil/uL Hgb (11.0-16.0) g/dL Hct (34.0-47.0) % MCV (81.0-99.0) fL MCH (27.0-31.0) pg MCHC (33.0-37.0) g/dL RDW (11.5-14.5) % Plt Count (130-400) K/uL MPV (7.2-11.7) fL Neut % (Auto) (50.0-75.0) % Lymph % (Auto) (20.0-40.0) % [place] % (Auto) (0.0-10.0) % Eos % (Auto) (0.0-4.0) % Baso % (Auto) (0.0-2.0) % Neut # (Auto) (1.8-7.0) K/uL Lymph # (Auto) (1.0-4.3) K/uL [place] # (Auto) (0.0-0.8) K/uL Eos # (Auto) (0.0-0.7) K/uL Baso # (Auto) (0.0-0.2) K/uL Neutrophils % (Manual) (50-75) % Band Neutrophils % (0-2) % Lymphocytes % (Manual) (20-40) % Monocytes % (Manual) (0-10) % Basophils % (Manual) (0-2) % Platelet Estimate (NORMAL) Hypochromasia (manual) Poikilocytosis (manual Anisocytosis (manual) Target Cells Nancy Cells Puncture Site pCO2 (35-45) mm/Hg pO2 (80-100) mm/Hg HCO3 (21-28) mmol/L ABG pH (7.35-7.45) ABG Total CO2 (22-28) mmol/L ABG O2 Saturation (95-98) % ABG Base Excess (-2.0-3.0) mmol/L ABG Hemoglobin (11.7-17.4) g/dL ABG Carboxyhemoglobin (0.5-1.5) % POC ABG HHb (Measured) (0.0-5.0) % ABG Methemoglobin (0.0-3.0) % Richard Test ABG Potassium (3.6-5.2) mmol/L A-a O2 Difference mm/Hg Respiratory Index Hgb O2 Saturation (95.0-98.0) % Glucose (65-105) mg/dl Lactate (0.7-2.1) mmol/L Vent Mode Mechanical Rate FiO2 % Tidal Volume PEEP Crit Value Called To Crit Value Called By Crit Value Read Back Blood Gas Notified Time Sodium (132-148) mmol/L Potassium (3.6-5.2) mmol/L Chloride (98-107) mmol/L Carbon Dioxide (22-30) mmol/L Anion Gap (10-20) BUN (7-17) mg/dL Creatinine (0.7-1.2) mg/dL Est GFR ( Amer) Est GFR (Non-Af Amer) POC Glucose (mg/dL) (65-110) mg/dL Random Glucose (65-105) mg/dL Calcium (8.6-10.4) mg/dl Phosphorus (2.5-4.5) mg/dL Magnesium (1.6-2.3) mg/dL Total Bilirubin (0.2-1.3) mg/dL AST (14-36) U/L ALT (9-52) U/L Alkaline Phosphatase (38-126) U/L Total Protein (6.3-8.3) g/dL Albumin (3.5-5.0) g/dL Globulin (2.2-3.9) gm/dL Albumin/Globulin Ratio (1.0-2.1) Lipase (23-300) U/L 25-OH Vitamin D Total (30.0-100.0) NG/ML Arterial Blood Potassium (3.6-5.2) mmol/L Urine Color (YELLOW) Urine Clarity (Clear) Urine pH (5.0-8.0) Ur Specific [place] (1.003-1.030) Urine Protein (NEGATIVE) mg/dL Urine Glucose (UA) (Normal) mg/dL Urine Ketones (NEGATIVE) mg/dL Urine Blood (NEGATIVE) Urine Nitrate (NEGATIVE) Urine Bilirubin (NEGATIVE) Urine Urobilinogen (0.2-1.0) mg/dL Ur Leukocyte Esterase (Negative) Orin/uL Urine WBC (Auto) (0-5) /hpf Urine RBC (Auto) (0-3) /hpf Urine Chloride 112 (32-290) mmol/L Blood Type O POSITIVE Antibody Screen Negative Laboratory Results - last 24 hr 12/16/17 12/18/17 12/18/17 09:12 08:32 18:44 WBC 6.3 RBC 4.20 Hgb 11.9 D Hct 38.2 MCV 90.8 D MCH 28.3 MCHC 31.1 L RDW 15.0 H Plt Count 182 MPV 10.1 Neut % (Auto) 76.6 H Lymph % (Auto) 17.1 L [place] % (Auto) 5.6 Eos % (Auto) 0.1 Baso % (Auto) 0.6 Neut # (Auto) 4.8 Lymph # (Auto) 1.1 [place] # (Auto) 0.3 Eos # (Auto) 0.0 Baso # (Auto) 0.0 Neutrophils % (Manual) 19 L Band Neutrophils % 43 H* Lymphocytes % (Manual) 20 Monocytes % (Manual) 8 Basophils % (Manual) Platelet Estimate Normal Hypochromasia (manual) Slight Poikilocytosis (manual Slight Anisocytosis (manual) Slight Target Cells Slight [place] Cells Slight Puncture Site pCO2 pO2 HCO3 ABG pH ABG Total CO2 ABG O2 Saturation ABG Base Excess ABG Hemoglobin ABG Carboxyhemoglobin POC ABG HHb (Measured) ABG Methemoglobin Richard Test ABG Potassium A-a O2 Difference Respiratory Index Hgb O2 Saturation Glucose Lactate Vent Mode Mechanical Rate FiO2 Tidal Volume PEEP Crit Value Called To Crit Value Called By Crit Value Read Back Blood Gas Notified Time Sodium Potassium Chloride Carbon Dioxide Anion Gap BUN Creatinine Est GFR ( Amer) Est GFR (Non-Af Amer) POC Glucose (mg/dL) Random Glucose Calcium Phosphorus Magnesium Total Bilirubin AST ALT Alkaline Phosphatase Total Protein Albumin Globulin Albumin/Globulin Ratio Lipase 25-OH Vitamin D Total Arterial Blood Potassium Urine Color Urine Clarity Urine pH Ur Specific [place] Urine Protein Urine Glucose (UA) Urine Ketones Urine Blood Urine Nitrate Urine Bilirubin Urine Urobilinogen Ur Leukocyte Esterase Urine WBC (Auto) Urine RBC (Auto) Urine Chloride 112 Blood Type O POSITIVE Antibody Screen Negative 12/18/17 12/18/17 12/18/17 18:44 18:57 19:02 WBC RBC Hgb Hct MCV MCH MCHC RDW Plt Count MPV Neut % (Auto) Lymph % (Auto) [place] % (Auto) Eos % (Auto) Baso % (Auto) Neut # (Auto) Lymph # (Auto) [place] # (Auto) Eos # (Auto) Baso # (Auto) Neutrophils % (Manual) Band Neutrophils % Lymphocytes % (Manual) Monocytes % (Manual) Basophils % (Manual) Platelet Estimate Hypochromasia (manual) Poikilocytosis (manual Anisocytosis (manual) Target Cells Nancy Cells Puncture Site Rba pCO2 38 pO2 119 H HCO3 12.6 L ABG pH 7.13 L* ABG Total CO2 13.8 L ABG O2 Saturation 99.6 H ABG Base Excess -15.8 L ABG Hemoglobin 14.5 ABG Carboxyhemoglobin 1.5 POC ABG HHb (Measured) 0.4 ABG Methemoglobin 1.0 Richard Test Na ABG Potassium A-a O2 Difference 547.0 Respiratory Index 4.6 Hgb O2 Saturation 97.0 Glucose Lactate Vent Mode Prvc Mechanical Rate FiO2 100.0 Tidal Volume 500 PEEP 5 Crit Value 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 Value Read Back Y Blood Gas Notified Time 1906 Sodium 144 Potassium 3.7 Chloride 120 H Carbon Dioxide 12 L Anion Gap 17 BUN 47 H Creatinine 3.1 H Est GFR ( Amer) 18 Est GFR (Non-Af Amer) 14 POC Glucose (mg/dL) 150 H Random Glucose 95 Calcium 3.9 L* D Phosphorus 3.4 Magnesium 1.2 L Total Bilirubin 0.6 AST 130 H D ALT 100 H Alkaline Phosphatase < 20 L D Total Protein 3.7 L Albumin 1.7 L D Globulin 1.9 L Albumin/Globulin Ratio 0.9 L Lipase 25-OH Vitamin D Total Arterial Blood Potassium Urine Color Urine Clarity Urine pH Ur Specific [place] Urine Protein Urine Glucose (UA) Urine Ketones Urine Blood Urine Nitrate Urine Bilirubin Urine Urobilinogen Ur Leukocyte Esterase Urine WBC (Auto) Urine RBC (Auto) Urine Chloride Blood Type Antibody Screen 12/18/17 12/18/17 12/18/17 19:59 21:58 23:44 WBC RBC Hgb Hct MCV MCH MCHC RDW Plt Count MPV Neut % (Auto) Lymph % (Auto) [place] % (Auto) Eos % (Auto) Baso % (Auto) Neut # (Auto) Lymph # (Auto) [place] # (Auto) Eos # (Auto) Baso # (Auto) Neutrophils % (Manual) Band Neutrophils % Lymphocytes % (Manual) Monocytes % (Manual) Basophils % (Manual) Platelet Estimate Hypochromasia (manual) Poikilocytosis (manual Anisocytosis (manual) Target Cells [place] Cells Puncture Site Rba pCO2 32 L pO2 219 H HCO3 14.5 L ABG pH 7.22 L ABG Total CO2 14.1 L ABG O2 Saturation 100.2 H ABG Base Excess -13.4 L ABG Hemoglobin ABG Carboxyhemoglobin POC ABG HHb (Measured) ABG Methemoglobin Richard Test Na ABG Potassium 4.1 A-a O2 Difference 454.0 Respiratory Index 2.1 Hgb O2 Saturation Glucose 146 H Lactate 2.5 H Vent Mode Prvc Mechanical Rate 14 FiO2 100.0 Tidal Volume 500 PEEP 5 Crit Value Called To Crit Value Called By Crit Value Read Back Blood Gas Notified Time Sodium 142 138.0 Potassium 4.5 Chloride 112 H 111.0 H Carbon Dioxide 14 L Anion Gap 20 BUN 61 H Creatinine 4.6 H Est GFR ( Amer) 11 Est GFR (Non-Af Amer) 9 POC Glucose (mg/dL) 149 H Random Glucose 127 H Calcium 5.2 L* D Phosphorus 5.2 H Magnesium 1.5 L Total Bilirubin 0.7 AST 188 H D ALT 119 H Alkaline Phosphatase 34 L D Total Protein 5.3 L Albumin 2.7 L D Globulin 2.6 Albumin/Globulin Ratio 1.0 Lipase 25-OH Vitamin D Total Arterial Blood Potassium 4.1 Urine Color Urine Clarity Urine pH Ur Specific [place] Urine Protein Urine Glucose (UA) Urine Ketones Urine Blood Urine Nitrate Urine Bilirubin Urine Urobilinogen Ur Leukocyte Esterase Urine WBC (Auto) Urine RBC (Auto) Urine Chloride Blood Type Antibody Screen 12/19/17 12/19/17 12/19/17 05:00 05:30 06:24 WBC 7.0 RBC 4.29 Hgb 12.2 Hct 37.8 MCV 88.0 D MCH 28.3 MCHC 32.2 L RDW 14.5 Plt Count 170 MPV 11.0 Neut % (Auto) 83.3 H Lymph % (Auto) 9.7 L [place] % (Auto) 6.8 Eos % (Auto) 0.1 Baso % (Auto) 0.1 Neut # (Auto) 5.9 Lymph # (Auto) 0.7 L [place] # (Auto) 0.5 Eos # (Auto) 0.0 Baso # (Auto) 0.0 Neutrophils % (Manual) 55 Band Neutrophils % 24 H* Lymphocytes % (Manual) 13 L Monocytes % (Manual) 7 Basophils % (Manual) 1 Platelet Estimate Normal Hypochromasia (manual) Poikilocytosis (manual Anisocytosis (manual) Target Cells [place] Cells Puncture Site Rr pCO2 34 L pO2 158 H HCO3 16.9 L ABG pH 7.27 L ABG Total CO2 16.6 L ABG O2 Saturation 99.8 H ABG Base Excess -10.3 L ABG Hemoglobin ABG Carboxyhemoglobin POC ABG HHb (Measured) ABG Methemoglobin Richard Test Pos ABG Potassium 4.1 A-a O2 Difference 513.0 Respiratory Index 3.2 Hgb O2 Saturation Glucose 151 H Lactate 2.1 Vent Mode Prvc Mechanical Rate 14 FiO2 100.0 Tidal Volume 500 PEEP 5 Crit Value Called To Crit Value Called By Crit Value Read Back Blood Gas Notified Time Sodium 138.0 Potassium Chloride 108.0 H Carbon Dioxide Anion Gap BUN Creatinine Est GFR ( Amer) Est GFR (Non-Af Amer) POC Glucose (mg/dL) 154 H Random Glucose Calcium Phosphorus Magnesium Total Bilirubin AST ALT Alkaline Phosphatase Total Protein Albumin Globulin Albumin/Globulin Ratio Lipase 25-OH Vitamin D Total Arterial Blood Potassium 4.1 Urine Color Urine Clarity Urine pH Ur Specific [place] Urine Protein Urine Glucose (UA) Urine Ketones Urine Blood Urine Nitrate Urine Bilirubin Urine Urobilinogen Ur Leukocyte Esterase Urine WBC (Auto) Urine RBC (Auto) Urine Chloride Blood Type Antibody Screen 12/19/17 12/19/17 12/19/17 06:24 10:05 10:45 WBC RBC Hgb Hct MCV MCH MCHC RDW Plt Count MPV Neut % (Auto) Lymph % (Auto) [place] % (Auto) Eos % (Auto) Baso % (Auto) Neut # (Auto) Lymph # (Auto) [place] # (Auto) Eos # (Auto) Baso # (Auto) Neutrophils % (Manual) Band Neutrophils % Lymphocytes % (Manual) Monocytes % (Manual) Basophils % (Manual) Platelet Estimate Hypochromasia (manual) Poikilocytosis (manual Anisocytosis (manual) Target Cells Nancy Cells Puncture Site pCO2 pO2 HCO3 ABG pH ABG Total CO2 ABG O2 Saturation ABG Base Excess ABG Hemoglobin ABG Carboxyhemoglobin POC ABG HHb (Measured) ABG Methemoglobin Richard Test ABG Potassium A-a O2 Difference Respiratory Index Hgb O2 Saturation Glucose Lactate Vent Mode Mechanical Rate FiO2 Tidal Volume PEEP Crit Value Called To Crit Value Called By Crit Value Read Back Blood Gas Notified Time Sodium 143 Potassium 5.0 Chloride 111 H Carbon Dioxide 16 L Anion Gap 21 H BUN 66 H Creatinine 4.5 H Est GFR ( Amer) 11 Est GFR (Non-Af Amer) 9 POC Glucose (mg/dL) Random Glucose 123 H Calcium 4.8 L* Phosphorus 3.9 Magnesium 1.5 L Total Bilirubin 1.0 AST 139 H D ALT 84 H D Alkaline Phosphatase 23 L D Total Protein 5.6 L Albumin 2.7 L Globulin 2.9 Albumin/Globulin Ratio 0.9 L Lipase 329 H 25-OH Vitamin D Total 23.7 L Arterial Blood Potassium Urine Color Blue Urine Clarity Hazy Urine pH 5.0 Ur Specific [place] 1.020 Urine Protein 2+ H Urine Glucose (UA) 1+ Urine Ketones Trace Urine Blood 2+ H Urine Nitrate Negative Urine Bilirubin Negative Urine Urobilinogen Normal Ur Leukocyte Esterase Negative Urine WBC (Auto) 2 Urine RBC (Auto) 47 H Urine Chloride Blood Type Antibody Screen 12/19/17 12/19/17 11:36 17:28 WBC RBC Hgb Hct MCV MCH MCHC RDW Plt Count MPV Neut % (Auto) Lymph % (Auto) [place] % (Auto) Eos % (Auto) Baso % (Auto) Neut # (Auto) Lymph # (Auto) [place] # (Auto) Eos # (Auto) Baso # (Auto) Neutrophils % (Manual) Band Neutrophils % Lymphocytes % (Manual) Monocytes % (Manual) Basophils % (Manual) Platelet Estimate Hypochromasia (manual) Poikilocytosis (manual Anisocytosis (manual) Target Cells [place] Cells Puncture Site pCO2 pO2 HCO3 ABG pH ABG Total CO2 ABG O2 Saturation ABG Base Excess ABG Hemoglobin ABG Carboxyhemoglobin POC ABG HHb (Measured) ABG Methemoglobin Richard Test ABG Potassium A-a O2 Difference Respiratory Index Hgb O2 Saturation Glucose Lactate Vent Mode Mechanical Rate FiO2 Tidal Volume PEEP Crit Value Called To Crit Value Called By Crit Value Read Back Blood Gas Notified Time Sodium Potassium Chloride Carbon Dioxide Anion Gap BUN Creatinine Est GFR ( Amer) Est GFR (Non-Af Amer) POC Glucose (mg/dL) 133 H 109 Random Glucose Calcium Phosphorus Magnesium Total Bilirubin AST ALT Alkaline Phosphatase Total Protein Albumin Globulin Albumin/Globulin Ratio Lipase 25-OH Vitamin D Total Arterial Blood Potassium Urine Color Urine Clarity Urine pH Ur Specific [place] Urine Protein Urine Glucose (UA) Urine Ketones Urine Blood Urine Nitrate Urine Bilirubin Urine Urobilinogen Ur Leukocyte Esterase Urine WBC (Auto) Urine RBC (Auto) Urine Chloride Blood Type Antibody Screen Critical Care Progress Note - Nutrition Nutrition: Nutrition Category Date Time Status NPO Diet [DIET] Diets 12/19/17 Breakfast Active Assessment/Plan - Assessment and Plan (Free Text) Plan: Patient seen and examined at bedside. Patient underwent prolonged hospital course. 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 During endoscopy, patient had blood loss requiring epi injection. Post procedure, patient was hypertensive requireing ICu monitoring. Patient developed free air requiring surgical intervention. -Surgical omental patch repair of posterior duodenum: intraop, patient noted to have significant bile in peritoneum. continue NG tube to suction, monitor KORI drains, strict NPO by NG tube --NG tube to low intermintent suction, start IV PPN/TPN allow omental patch to repair. -Hypocalcemia: suspect saponification of omental fat due to bile, will replace calcium by IV, low vitamin D, will replace IV/IM -ARF: continue IVF resustation, suspect ATN 2nd sepsis/large fluid shift, continue to monitor urine output, keep MAP > 65, avoid nephrotoxic drugs, continue to monitor, clinically fluid overloaded as fio2 high 60% on ventilator -Acute sepsis with left shift: currently on meropenem (broad gram neg and anerobic), will add linezolid (GPC coverage) and micafungin (fungal coverage) - - gross abdominal spillage, de-escalate as per intra-op cultures, ID input -Malnutrition: will benfit from IV TPN - dedicated PICC line tomorrow -BGM q6hrs, ISS aspart -dvt ppx SCD (start heparin once hemostasis ascertained by surgical team) -PUD ppx protonix -Patient currently getting ~168 ml of IVF + albumin (+) balance by 10 liters since admission, may require HD cc time spent 45 minutes -d/w Dr. Escobar, ICU team/nurse -check CMP/mag/phos and replace - Date & Time Date: 12/19/17 Time: 18:31
--- NOTE | 2017-12-19 12:31 | CP.PCM.PN ---
<GeraldOly - Last Filed: 12/19/17 13:07> Subjective - Date & Time of Evaluation Date of Evaluation: 12/19/17 Time of Evaluation: 12:42 - Subjective Subjective: Surgery Pt seen and examined. Intubated. Response to pain stimuli. Doesn't follow verbal commands. Pt underwent surgery yesterday. NGT in place to low cont suction. Drain 800cc SS and bilious output/24hrs. Minimal urine output. Pt had BM overnight Objective - Vital Signs/Intake and Output Vital Signs (last 24 hours): Temp Pulse Resp BP Pulse Ox 97.9 F 119 H 21 112/50 L 96 12/19/17 08:00 12/19/17 11:00 12/19/17 11:00 12/19/17 11:00 12/19/17 11:00 Intake and Output: 12/19/17 12/19/17 06:59 18:59 Intake Total 2070 885 Output Total 660 220 Balance 1410 665 - Medications Medications: Current Medications Acetaminophen (Tylenol 650 Mg Supp) 650 mg HI Q4 PRN PRN Reason: Fever >100.4 F Acetylcysteine (Acetylcysteine 20%) 6 ml PO Q12H [facility]STUS Stop: 12/20/17 21:16 Last Admin: 12/19/17 10:54 Dose: 6 ml Albuterol/Ipratropium (Duoneb 3 Mg/0.5 Mg (3 Ml) Ud) 3 ml INH RQ4 PRN PRN Reason: Shortness of Breath Last Admin: 12/18/17 20:12 Dose: 3 ml Calcitriol (Rocaltrol) 0.5 mcg GT DAILY [facility] Last Admin: 12/19/17 11:14 Dose: 0.5 mcg Calcium/Vitamin D (Oscal-D 250 Mg-125 Units Tab) 2 tab PO BID FESTUS Last Admin: 12/19/17 10:53 Dose: 2 tab Dextrose (Dextrose 50% Inj) 0 ml IV STAT PRN; Protocol PRN Reason: Hypoglycemia Protocol Dextrose (Glutose 15) 15 gm PO ONCE PRN; Protocol PRN Reason: Hypoglycemia Protocol Glucagon (Glucagen Diagnostic Kit) 1 mg IM STAT PRN; Protocol PRN Reason: Hypoglycemia Protocol Hydromorphone HCl (Dilaudid) 0.5 mg IVP Q4H PRN PRN Reason: Pain, severe (8-10) Last Admin: 12/18/17 13:04 Dose: 0.5 mg Hydromorphone HCl (Dilaudid) 1 mg IM Q4H PRN PRN Reason: Pain, severe (8-10) Last Admin: 12/19/17 12:24 Dose: 1 mg Pantoprazole Sodium 80 mg/ (Sodium Chloride) 100 mls @ 10 mls/hr IV .Q10H FESTUS PRN Reason: 8 MG/HR Last Admin: 12/19/17 08:08 Dose: Not Given Dextrose (Dextrose 5% In Water 1000 Ml) 1,000 mls @ 0 mls/hr IV .Q0M PRN; Protocol; Per Protocol PRN Reason: Hypoglycemia Protocol Meropenem 500 mg/ Sodium (Chloride) 100 mls @ 100 mls/hr IVPB Q12 [facility] PRN Reason: Protocol Last Admin: 12/19/17 09:57 Dose: 100 mls/hr BUPIVACAINE 0.125%/0.9% NACL (Bupivacaine-Ns 0.125% On-Q [employer] Storage [employer]) 600 mls @ 4 mls/ hr IJ ONCE ONE Stop: 12/24/17 21:59 Last Admin: 12/18/17 18:20 Dose: Not Given Sodium Bicarbonate 150 meq/ (Dextrose) 1,150 mls @ 80 mls/hr IV .[id number] FESTUS Last Admin: 12/19/17 10:42 Dose: 80 mls/hr Calcium Gluconate 2,000 mg/ (Sodium Chloride) 270 mls @ 100 mls/hr IVPB ONCE ONE Stop: 12/19/17 12:41 Last Admin: 12/19/17 10:43 Dose: 100 mls/hr Calcium Gluconate 2,000 mg/ (Sodium Chloride) 270 mls @ 100 mls/hr IVPB ONCE ONE Stop: 12/19/17 14:41 Dextrose/ Amino Acids 1,000 mls @ 84 mls/hr IV .[id number] [facility] Insulin Human Regular (Novolin R) 0 unit SC Q6 [facility]US PRN Reason: Protocol Last Admin: 12/19/17 12:02 Dose: Not Given Ondansetron HCl (Zofran Inj) 4 mg IVP Q4 PRN PRN Reason: Nausea/Vomiting - Labs Labs: 12/19/17 06:24 12/19/17 06:24 PT 15.9 SECONDS (9.7-12.2) H 12/18/17 12:39 INR 1.5 12/18/17 12:39 APTT 40 SECONDS (21-34) H 12/18/17 12:39 - Constitutional Appears: In Acute Distress - Head Exam Head Exam: ATRAUMATIC, NORMAL INSPECTION, NORMOCEPHALIC - Eye Exam Eye Exam: Normal appearance, PERRL - ENT Exam ENT Exam: Mucous Membranes Moist, Normal Exam - Neck Exam Neck Exam: Full ROM, Normal Inspection. absent: Lymphadenopathy - Respiratory Exam Additional comments: Intubated. 100% FiO2 PRVC - Cardiovascular Exam Cardiovascular Exam: Tachycardia, REGULAR RHYTHM, +S1, +S2. absent: Murmur - GI/Abdominal Exam GI & Abdominal Exam: Soft, Tenderness, Normal Bowel Sounds. absent: Distended, Firm, Guarding, Rigid Additional comments: Incision dressing C/D/I. Drain in place SS mild bilious fluids x2. - Exam Additional comments: Esteban green urine - Extremities Exam Extremities Exam: Normal Capillary Refill, Normal Inspection. absent: Joint Swelling, Pedal Edema - Back Exam Back Exam: NORMAL INSPECTION - Neurological Exam Neurological Exam: Altered. 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 Pt is s/p EGD/EUS with EMR complicated by bleeding and perforation s/p clip placement x 7, epi injection, and bipolar cautery. POD 1 s/p exploraty laparotomy primary repair of duodenal perf and grahm patch Metabolic acidosis Elevated LFTs MANFRED possible ATN Sepsis VDRF -NPO -PPN -ICU management -Labs -PTX -Pain control -I & O -ABX -Possible HD cath if HD needed Will FINN Alatorre <Deion Alatorre - Last Filed: 12/21/17 00:42> Objective - Vital Signs/Intake and Output Vital Signs (last 24 hours): Temp Pulse Resp BP Pulse Ox 98.8 F 108 H 13 101/53 L 100 12/20/17 19:00 12/21/17 00:00 12/20/17 19:00 12/20/17 23:54 12/21/17 00:00 Intake and Output: 12/20/17 12/21/17 18:59 06:59 Intake Total 2356.4 1758.2 Output Total 515 65 Balance 1841.4 1693.2 - Medications Medications: Current Medications Acetaminophen (Tylenol 650 Mg Supp) 650 mg HI Q4 PRN PRN Reason: Fever >100.4 F Albuterol/Ipratropium (Duoneb 3 Mg/0.5 Mg (3 Ml) Ud) 3 ml INH RQ4 PRN PRN Reason: Shortness of Breath Last Admin: 12/18/17 20:12 Dose: 3 ml Dextrose (Dextrose 50% Inj) 0 ml IV STAT PRN; Protocol PRN Reason: Hypoglycemia Protocol Dextrose (Glutose 15) 15 gm PO ONCE PRN; Protocol PRN Reason: Hypoglycemia Protocol Glucagon (Glucagen Diagnostic Kit) 1 mg IM STAT PRN; Protocol PRN Reason: Hypoglycemia Protocol Heparin Sodium (Porcine) (Heparin) 5,000 units SC Q8 [facility] Last Admin: 12/20/17 14:30 Dose: Not Given Hydromorphone HCl (Dilaudid) 0.5 mg IVP Q4H PRN PRN Reason: Pain, severe (8-10) Last Admin: 12/18/17 13:04 Dose: 0.5 mg Pantoprazole Sodium 80 mg/ (Sodium Chloride) 100 mls @ 10 mls/hr IV .Q10H FESTUS PRN Reason: 8 MG/HR Last Admin: 12/20/17 17:49 Dose: 10 mls/hr Dextrose (Dextrose 5% In Water 1000 Ml) 1,000 mls @ 0 mls/hr IV .Q0M PRN; Protocol; Per Protocol PRN Reason: Hypoglycemia Protocol Meropenem 500 mg/ Sodium (Chloride) 100 mls @ 100 mls/hr IVPB Q12 [facility]US PRN Reason: Protocol Last Admin: 12/20/17 21:02 Dose: 100 mls/hr BUPIVACAINE 0.125%/0.9% NACL (Bupivacaine-Ns 0.125% On-Q [employer]) 600 mls @ 4 mls/ hr IJ ONCE ONE Stop: 12/24/17 21:59 Last Admin: 12/18/17 18:20 Dose: Not Given Sodium Bicarbonate 150 meq/ (Dextrose) 1,150 mls @ 80 mls/hr IV .[id number] [facility]ST[facility] Last Admin: 12/20/17 18:03 Dose: 80 mls/hr Fentanyl Citrate 2,500 mcg/ (Sodium Chloride) 250 mls @ 21.31 mls/hr IV .[id number] FESTUS; 2 MCG/KG/HR PRN Reason: Protocol Last Admin: 12/20/17 20:59 Dose: 1 mcg/kg/hr, 10.65 mls/hr Multivitamins/Vitamin C 10 ml/ (Amino Acids) 1,010 mls @ 84 mls/hr IV .Q12H2M FESTUS Stop: 12/21/17 06:00 Last Admin: 12/20/17 17:50 Dose: 84 mls/hr Amino Acids (Clinimix 4.25/5 % "E" (1000 Ml)) 1,000 mls @ 84 mls/hr IV .[id number] ONE Stop: 12/21/17 18:24 Micafungin Sodium 100 mg/ (Sodium Chloride) 100 mls @ 100 mls/hr IV Q24H FESTUS PRN Reason: Protocol Linezolid (Zyvox 600mg/300ml D5w) 600 mg in 300 mls @ 200 mls/hr IVPB Q12 FESTUS PRN Reason: Protocol Last Admin: 12/20/17 21:00 Dose: 200 mls/hr Insulin Human Regular (Novolin R) 0 unit SC Q6 FESTUS PRN Reason: Protocol Last Admin: 12/20/17 18:07 Dose: Not Given Ondansetron HCl (Zofran Inj) 4 mg IVP Q4 PRN PRN Reason: Nausea/Vomiting - Labs Labs: 12/20/17 07:46 12/20/17 06:30 PT 15.9 SECONDS (9.7-12.2) H 12/18/17 12:39 INR 1.5 12/18/17 12:39 APTT 40 SECONDS (21-34) H 12/18/17 12:39 Attending/Attestation - Attestation I have personally seen and examined this patient.: Yes I have fully participated in the care of the patient.: Yes I have reviewed all pertinent clinical information, including history, physical exam and plan: Yes Notes (Text): Pt was seen and examined at bedside Agree with above note and assessment Pt is stable clinically Keep NG to LIS PPN/TPN High out put renal failure Dialysis catheter placement if needed IV antibiotics C.w current mx Plan d.w ICU attending and nurse in detail
--- NOTE | 2017-12-19 14:08 | CP.PCM.PN ---
Subjective - Date & Time of Evaluation Date of Evaluation: 12/19/17 Time of Evaluation: 08:30 - Subjective Subjective: Patient was seen and examined by me earlier in the morning. Patient yesterday afternoon went to the OR POD 1. She had an exploratory laparotomy and repair of duodenal perforation and patch Currently she is intubated on PRVC settings Her creatine remains elevated, the urine out put was recorded as 415 cc Blood cultures negative, very large bandemia Family member at bedside Objective - Vital Signs/Intake and Output Vital Signs (last 24 hours): Temp Pulse Resp BP Pulse Ox 97.7 F 116 H 18 116/51 L 97 12/19/17 12:00 12/19/17 13:00 12/19/17 13:00 12/19/17 13:00 12/19/17 13:00 Intake and Output: 12/19/17 12/19/17 06:59 18:59 Intake Total 2070 975 Output Total 660 340 Balance 1410 635 - Medications Medications: Current Medications Acetaminophen (Tylenol 650 Mg Supp) 650 mg MS Q4 PRN PRN Reason: Fever >100.4 F Acetylcysteine (Acetylcysteine 20%) 6 ml PO Q12H FESTUS Stop: 12/20/17 21:16 Last Admin: 12/19/17 10:54 Dose: 6 ml Albuterol/Ipratropium (Duoneb 3 Mg/0.5 Mg (3 Ml) Ud) 3 ml INH RQ4 PRN PRN Reason: Shortness of Breath Last Admin: 12/18/17 20:12 Dose: 3 ml Calcitriol (Rocaltrol) 0.5 mcg GT DAILY [facility] Last Admin: 12/19/17 11:14 Dose: 0.5 mcg Calcium/Vitamin D (Oscal-D 250 Mg-125 Units Tab) 2 tab PO BID FESTUS Last Admin: 12/19/17 10:53 Dose: 2 tab Dextrose (Dextrose 50% Inj) 0 ml IV STAT PRN; Protocol PRN Reason: Hypoglycemia Protocol Dextrose (Glutose 15) 15 gm PO ONCE PRN; Protocol PRN Reason: Hypoglycemia Protocol Glucagon (Glucagen Diagnostic Kit) 1 mg IM STAT PRN; Protocol PRN Reason: Hypoglycemia Protocol Hydromorphone HCl (Dilaudid) 0.5 mg IVP Q4H PRN PRN Reason: Pain, severe (8-10) Last Admin: 12/18/17 13:04 Dose: 0.5 mg Pantoprazole Sodium 80 mg/ (Sodium Chloride) 100 mls @ 10 mls/hr IV .Q10H FESTUS PRN Reason: 8 MG/HR Last Admin: 12/19/17 08:08 Dose: Not Given Dextrose (Dextrose 5% In Water 1000 Ml) 1,000 mls @ 0 mls/hr IV .Q0M PRN; Protocol; Per Protocol PRN Reason: Hypoglycemia Protocol Meropenem 500 mg/ Sodium (Chloride) 100 mls @ 100 mls/hr IVPB Q12 FESTUS PRN Reason: Protocol Last Admin: 12/19/17 09:57 Dose: 100 mls/hr BUPIVACAINE 0.125%/0.9% NACL (Bupivacaine-Ns 0.125% On-Q Nursery Supervisor) 600 mls @ 4 mls/ hr IJ ONCE ONE Stop: 12/24/17 21:59 Last Admin: 12/18/17 18:20 Dose: Not Given Sodium Bicarbonate 150 meq/ (Dextrose) 1,150 mls @ 80 mls/hr IV .[id number] [facility] Last Admin: 12/19/17 10:42 Dose: 80 mls/hr Calcium Gluconate 2,000 mg/ (Sodium Chloride) 270 mls @ 100 mls/hr IVPB ONCE ONE Stop: 12/19/17 14:41 Last Admin: 12/19/17 12:57 Dose: 100 mls/hr Multivitamins/Vitamin C 10 ml/ (Amino Acids) 1,010 mls @ 84 mls/hr IV .Q12H2M [facility] Stop: 12/20/17 06:01 Amino Acids (Clinimix 4.25/5 % "E" (1000 Ml)) 1,000 mls @ 84 mls/hr IV .[id number] [facility] Stop: 12/20/17 17:59 Insulin Human Regular (Novolin R) 0 unit SC Q6 [facility] PRN Reason: Protocol Last Admin: 12/19/17 12:02 Dose: Not Given Ondansetron HCl (Zofran Inj) 4 mg IVP Q4 PRN PRN Reason: Nausea/Vomiting - Labs Labs: 12/19/17 06:24 12/19/17 06:24 PT 15.9 SECONDS (9.7-12.2) H 12/18/17 12:39 INR 1.5 06/13/18 12:39 APTT 40 SECONDS (21-34) H 12/18/17 12:39 - Constitutional Appears: Chronically Ill - ENT Exam ENT Exam: Mucous Membranes Moist - Respiratory Exam Additional comments: Currently intubated - GI/Abdominal Exam Additional comments: There are two drains present. 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 During the procedure, patient experienced a significant amount of bleeding which was treated with a combination of clipping , electrocautery and epinephrine. Bleeding was significantly reduced however patient was subsequently admitted to ICU for close observation. She had underwent EGD/Colonoscopy on 12/05/17 due to worsening reflux symptoms with progressive substernal burning that started approximately 2 months prior. At that time, EGD/Colonsocopy was significant for duodenal nodule that was biopsied and revealed well differentiated neuroendocrine tumor. Patient was admitted to ICU due to SBP 220/140s initially on cardene drip x 1 - 2 hours- now normotensive; patient now in ATN with CRE of 4.5, bandemia downtrending with elevated procal, lactate initially 2.4 now 1.7. Returned to OR 12/18/17 due to increasing free air noted on repeat CT scan ; s/p ex lap primary repair of duodenal perforation, jourdan patch. Omentectomy." Metabolic acidosis from sepsis, duodenal perforation, acute kidney injury. 12/19: Today the serum bicarb is 16. The pH on ABG was 7.27, she is on D5W with NaBicarb @ 150 cc / hr 12/18: Serum bicarb was 22 yesterday now 14 this morning. Check ABG as well as a repeat CT scan of the chest abdomen and pelvis. She is on abx, however this may need to be changed if the cultures come back positive. Procalcitonin was high but the WBC was low. Afebrile. The first CT done on 12/16 reported that there was some intrapertoneal air about the 1st and 2nd duodenum extending into gall bladder fossa No hemopertinium. Acute Kidney Injury 12/19: Creatine remains elevated, urine out put recorded was 415 12/18: Rising creatine, pending ABG shock panel. Maybe sepsis related or abdominal complications. Hypertension 12/18: Currently systolic in the low 100s. Off of cardene ggt. 12/17: Now off of the cardene ggt. Her BP systolics have been stable since yesterday afternoon. Probably the very elevated numbers were from the carcinoid tumour that is now removed. - Started on Cardene Drip - will titrate and continue to monitor Duodenal carcinoid tumor- S/P endoscopic mucosal resection 12/16/1712/19: Patient is POD 1 of exploratormy lapartomy and repair of perforation. 12/17: Blood pressures now stable, Hgb is also stable as well. COPD - stable at this moment. 12/19: Currently intubated at this time 12/17: Heme/ Onc: A: Hx breast cancer s/p lumpectomy Protonix
--- NOTE | 2017-12-19 16:08 | CP.PCM.PN ---
Subjective - Date & Time of Evaluation Date of Evaluation: 12/19/17 Time of Evaluation: 16:04 - Subjective Subjective: Nephrology Consultation Note: Assessment: critical oliguric Acute Kidney Injury (N17.9) likely hemodynamic injury leading to ATN HAGMA with respi compensation, hypocalcemia carcinoid HTN crisis s/p resection now resolved acute abdomen with perforation s/p repair 12/18/17 (ex lap) hypertension, COPD, breast cancer s/p lumpectomy and duodenal neuroendocrine tumor Plan No acute need for renal replacement therapy at this time but may need soon and will need close follow up. overall maintaining O2 sat, K 5.0 and serum Cr platueing. anticipate spontaneous renal recovery. supportive management for now. No ACEI/ARB due to MANFRED. BP on low side. maintain hemodynamics stable. Monitor Input/Output, daily weights and renal function with basic metabolic panel continue with IVF as Bicarb drip agree with IV calcium gluconate supplementation N-acetylcysteine not indicated from renal perspective Dose meds/antibiotics for reduced GFR. Avoid fleets enema/magnesium based laxatives. Avoid nephrotoxins/NSAIDs/ iodinated contrast (unless needed emergently) Glycemic control Further work up/management as per primary team Thanks for allowing me to participate in care of your patient. Will follow patient with you. Please call if any Qs. 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 she also had HTN crisis which was treated with cardene drip. renal consult for MANFRED eval. also found to have free air in abdomen Denies OTC/herbal meds or NSAIDs No recent iodinated contrast exposure. Noted obvious episodes of low BP (89/51). ROS: unable as pt intubated Physical Examination: General Appearance: comfortable, in no acute respiratory distress, co-operative . ill appearing Vitals reviewed and noted as below Head; Atraumatic, normocephalic ENT: orally intubated EYES: Pupils are equal, round and reactive to light accommodation. Eye muscles and extraocular movement intact. Sclera is anicteric. Neck; supple no lymphadenopathy, no thyromegaly or bruit Lungs: Normal respiratory rate/effort. Breath sounds bilateral equal and few rales + Heart: Normal rate. s1s2 normal. No rub or gallop. Extremities: no edema. No varicose veins Neurological: Patient is sedated Skin: Warm and dry. Normal turgor. No rash. Palpitation: Normal elasticity for age Abdomen: no abdominal tenderness with out guarding but no rigidity no organomegaly s/p exlap Psych: unable MSK: no joint tenderness or swelling. Digits and nails normal, no deformity : kidney or bladder not palpable. has bruce with bluish/green color urine ? dye Labs/imaging reviewed. Past medical history, past surgical history, family history, social history, allergy reviewed and noted as below Family hx: no hx of CKD. Rest non-contributory renal imaging: WNL FeNa 0.7% UA 1+ protein no blood Objective - Vital Signs/Intake and Output Vital Signs (last 24 hours): Temp Pulse Resp BP Pulse Ox 97.7 F 110 H 21 126/48 L 97 12/19/17 12:00 12/19/17 15:00 12/19/17 15:00 12/19/17 15:00 12/19/17 15:00 Intake and Output: 12/19/17 12/19/17 06:59 18:59 Intake Total 2070 1855 Output Total 660 370 Balance 1410 1485 - Medications Medications: Current Medications Acetaminophen (Tylenol 650 Mg Supp) 650 mg PA Q4 PRN PRN Reason: Fever >100.4 F Acetylcysteine (Acetylcysteine 20%) 6 ml PO Q12H [facility] Stop: 12/20/17 21:16 Last Admin: 12/19/17 10:54 Dose: 6 ml Albuterol/Ipratropium (Duoneb 3 Mg/0.5 Mg (3 Ml) Ud) 3 ml INH RQ4 PRN PRN Reason: Shortness of Breath Last Admin: 12/18/17 20:12 Dose: 3 ml Calcitriol (Rocaltrol) 0.5 mcg GT DAILY [facility] Last Admin: 12/19/17 11:14 Dose: 0.5 mcg Calcium/Vitamin D (Oyster Shell Calcium/Vitamin D 500 Mg-200 Iu) 1 tab PO BID FEST[facility] Dextrose (Dextrose 50% Inj) 0 ml IV STAT PRN; Protocol PRN Reason: Hypoglycemia Protocol Dextrose (Glutose 15) 15 gm PO ONCE PRN; Protocol PRN Reason: Hypoglycemia Protocol Glucagon (Glucagen Diagnostic Kit) 1 mg IM STAT PRN; Protocol PRN Reason: Hypoglycemia Protocol Hydromorphone HCl (Dilaudid) 0.5 mg IVP Q4H PRN PRN Reason: Pain, severe (8-10) Last Admin: 12/18/17 13:04 Dose: 0.5 mg Pantoprazole Sodium 80 mg/ (Sodium Chloride) 100 mls @ 10 mls/hr IV .Q10H [facility]STUS PRN Reason: 8 MG/HR Last Admin: 12/19/17 08:08 Dose: Not Given Dextrose (Dextrose 5% In Water 1000 Ml) 1,000 mls @ 0 mls/hr IV .Q0M PRN; Protocol; Per Protocol PRN Reason: Hypoglycemia Protocol Meropenem 500 mg/ Sodium (Chloride) 100 mls @ 100 mls/hr IVPB Q12 [facility] PRN Reason: Protocol Last Admin: 12/19/17 09:57 Dose: 100 mls/hr BUPIVACAINE 0.125%/0.9% NACL (Bupivacaine-Ns 0.125% On-Q Wax Pourer) 600 mls @ 4 mls/ hr IJ ONCE ONE Stop: 12/24/17 21:59 Last Admin: 12/18/17 18:20 Dose: Not Given Sodium Bicarbonate 150 meq/ (Dextrose) 1,150 mls @ 80 mls/hr IV .[id number] [facility] Last Admin: 12/19/17 10:42 Dose: 80 mls/hr Multivitamins/Vitamin C 10 ml/ (Amino Acids) 1,010 mls @ 84 mls/hr IV .Q12H2M [facility] Stop: 12/20/17 06:01 Amino Acids (Clinimix 4.25/5 % "E" (1000 Ml)) 1,000 mls @ 84 mls/hr IV .[id number] [facility] Stop: 12/20/17 17:59 Insulin Human Regular (Novolin R) 0 unit SC Q6 [facility] PRN Reason: Protocol Last Admin: 12/19/17 12:02 Dose: Not Given Ondansetron HCl (Zofran Inj) 4 mg IVP Q4 PRN PRN Reason: Nausea/Vomiting - Labs Labs: 12/19/17 06:24 12/19/17 06:24 PT 15.9 SECONDS (9.7-12.2) H 12/18/17 12:39 INR 1.5 12/18/17 12:39 APTT 40 SECONDS (21-34) H 12/18/17 12:39
[2017-12-19] MEDS ORDERED: Calcium-Vit D 500 mg-200 Units Tab UD PO SCH (18:00)
[2017-12-19] MEDS ORDERED: **PPN #1 IV SCH (18:00)
[2017-12-19] MEDS ORDERED: Lactated Ringer's 1,000 ML IV ONE (18:07)
--- NOTE | 2017-12-19 18:24 | CARD ---
APPROVED REPORT EKG Measurement Heart [id number] CT [id number] <Conclusion> Sinus tachycardia Otherwise normal ECG
[2017-12-19] MEDS: Albumin Human 25% (12.5 gm/50 ml) IV SCH (18:27)
[2017-12-19 18:55] LABS: ALB/GLOB RATIO 1.1 (1.0-2.1); ALBUMIN 2.6 g/dL (3.5-5.0); CALCIUM 5.6 mg/dl (8.6-10.4)
[2017-12-19] MEDS: Magnesium Sulfate 1 gm in D5W 1 GM/100 ML BAG IVPB SCH ×2 (21:19→21:20)
[2017-12-20] MEDS: Albumin Human 25% (12.5 gm/50 ml) IV SCH ×5 (00:15→23:36)
[2017-12-20 05:39] LABS: ABG ALLEN TEST POS; ARTERIAL BLOOD GAS HCO3 19.9 mmol/L (21-28); ARTERIAL BLOOD GAS HEMOGLOBIN 10.2 g/dL (11.7-17.4); ARTERIAL BLOOD GAS O2 SAT 97.9 % (95-98); ARTERIAL BLOOD GAS PCO2 37 mm/Hg (35-45); ARTERIAL BLOOD GAS PH 7.32 (7.35-7.45); ARTERIAL BLOOD GAS PO2 85 mm/Hg (80-100); ARTERIAL BLOOD GAS TCO2 20.2 mmol/L (22-28)
[2017-12-20] MEDS: Pantoprazole 80 MG in Sodium Chloride 0.9% 100 ML IV SCH ×3 (05:42→17:49)
[2017-12-20] MEDS: (Novolin R) Insulin Human Regular 100 units/ml vial SC SCH ×3 (06:21→18:07)
[2017-12-20] MEDS: **PPN #2 IV SCH ×2 (06:21→17:51)
[2017-12-20 06:32] LABS: LYMPH # 0.6 K/uL (1.0-4.3); MONO # 0.6 K/uL (0.0-0.8); NRBC % 0.1 % (0.0-2.0); WHITE BLOOD COUNT 5.2 K/uL (4.8-10.8)
[2017-12-20 06:54] LABS: ALB/GLOB RATIO 1.4 (1.0-2.1); ALBUMIN 3.2 g/dL (3.5-5.0); CALCIUM 6.1 mg/dl (8.6-10.4)
[2017-12-20 07:15] LABS: BASO % 0.3 % (0.0-2.0); EOS % 0.2 % (0.0-4.0); LYMPH % 11.7 % (20.0-40.0); MEAN CELL VOLUME 85.5 fL (81.0-99.0); MEAN CORPUSCULAR HEMOGLOBIN 28.8 pg (27.0-31.0); MEAN CORPUSCULAR HGB CONC 33.7 g/dL (33.0-37.0); MEAN PLATELET VOLUME 10.9 fL (7.2-11.7); MONO % 10.7 % (0.0-10.0); NEUT % 77.1 % (50.0-75.0); RBC 2.93 Mil/uL (3.80-5.20); RED CELL DISTRIBUTION WIDTH 14.5 % (11.5-14.5)
[2017-12-20 07:26] LABS: HEMOGLOBIN 8.5 g/dL (11.0-16.0)
--- NOTE | 2017-12-20 07:40 | CP.PCM.PN ---
<GeraldRashidyazmin - Last Filed: 12/20/17 07:37> Subjective - Date & Time of Evaluation Date of Evaluation: 12/20/17 Time of Evaluation: 07:37 - Subjective Subjective: Surgery PT seen and examined. Pt pulled out NGT overnight. 100cc bilious output before pulling out overnight. 250cc/24hrs prior to DC ing NGT. Currently pt is on vent at 60% FiO2 and on fentanyl drip. Doesn't response to pain stimuli or verbal stimuli. No pressors. Urine output is picking up. 500cc/24hrs. Objective - Vital Signs/Intake and Output Vital Signs (last 24 hours): Temp Pulse Resp BP Pulse Ox 98.6 F 106 H 22 134/61 98 12/20/17 04:00 12/20/17 07:07 12/19/17 18:00 12/20/17 07:07 12/20/17 07:07 Intake and Output: 12/20/17 12/20/17 06:59 18:59 Intake Total 2843.6 234.7 Output Total 520 210 Balance 2323.6 24.7 - Medications Medications: Current Medications Acetaminophen (Tylenol 650 Mg Supp) 650 mg W[place] Q4 PRN PRN Reason: Fever >100.4 F Albumin Human (Albumin Human 25% (12.5 Gm/50 Ml)) 25 gm IV Q6H FESTUS Stop: 12/21/17 00:16 Last Admin: 12/20/17 05:44 Dose: 25 gm Albuterol/Ipratropium (Duoneb 3 Mg/0.5 Mg (3 Ml) Ud) 3 ml INH RQ4 PRN PRN Reason: Shortness of Breath Last Admin: 12/18/17 20:12 Dose: 3 ml Dextrose (Dextrose 50% Inj) 0 ml IV STAT PRN; Protocol PRN Reason: Hypoglycemia Protocol Dextrose (Glutose 15) 15 gm PO ONCE PRN; Protocol PRN Reason: Hypoglycemia Protocol Glucagon (Glucagen Diagnostic Kit) 1 mg IM STAT PRN; Protocol PRN Reason: Hypoglycemia Protocol Heparin Sodium (Porcine) (Heparin) 5,000 units SC Q8 FESTUS Last Admin: 12/20/17 05:43 Dose: 5,000 units Hydromorphone HCl (Dilaudid) 0.5 mg IVP Q4H PRN PRN Reason: Pain, severe (8-10) Last Admin: 12/18/17 13:04 Dose: 0.5 mg Pantoprazole Sodium 80 mg/ (Sodium Chloride) 100 mls @ 10 mls/hr IV .Q10H FESTUS PRN Reason: 8 MG/HR Last Admin: 12/20/17 05:42 Dose: 10 mls/hr Dextrose (Dextrose 5% In Water 1000 Ml) 1,000 mls @ 0 mls/hr IV .Q0M PRN; Protocol; Per Protocol PRN Reason: Hypoglycemia Protocol Meropenem 500 mg/ Sodium (Chloride) 100 mls @ 100 mls/hr IVPB Q12 FESTUS PRN Reason: Protocol Last Admin: 12/19/17 22:54 Dose: 100 mls/hr BUPIVACAINE 0.125%/0.9% NACL (Bupivacaine-Ns 0.125% On-Q Vp Security) 600 mls @ 4 mls/ hr IJ ONCE ONE Stop: 12/24/17 21:59 Last Admin: 12/18/17 18:20 Dose: Not Given Sodium Bicarbonate 150 meq/ (Dextrose) 1,150 mls @ 80 mls/hr IV .[id number] FESTUS Last Admin: 12/19/17 23:45 Dose: Not Given Amino Acids (Clinimix 4.25/5 % "E" (1000 Ml)) 1,000 mls @ 84 mls/hr IV .[id number] FESTUS Stop: 12/20/17 17:59 Last Admin: 12/20/17 06:21 Dose: 84 mls/hr Fentanyl Citrate 2,500 mcg/ (Sodium Chloride) 250 mls @ 21.31 mls/hr IV .[id number] FESTUS; 2 MCG/KG/HR PRN Reason: Protocol Last Titration: 12/19/17 22:55 Dose: 1 mcg/kg/hr, 10.65 mls/hr Insulin Human Regular (Novolin R) 0 unit SC Q6 FESTUS PRN Reason: Protocol Last Admin: 12/20/17 06:21 Dose: Not Given Ondansetron HCl (Zofran Inj) 4 mg IVP Q4 PRN PRN Reason: Nausea/Vomiting - Labs Labs: 12/20/17 06:26 12/20/17 06:30 PT 15.9 SECONDS (9.7-12.2) H 12/18/17 12:39 INR 1.5 12/18/17 12:39 APTT 40 SECONDS (21-34) H 12/18/17 12:39 - Constitutional Appears: In Acute Distress - Head Exam Head Exam: ATRAUMATIC, NORMAL INSPECTION, NORMOCEPHALIC - Eye Exam Eye Exam: PERRL - ENT Exam ENT Exam: Mucous Membranes Moist, Normal Exam Additional comments: on vent. NGT DC ed - Neck Exam Neck Exam: Normal Inspection - Respiratory Exam Respiratory Exam: Respiratory Distress Additional comments: on vent 60% FiO2 - Cardiovascular Exam Cardiovascular Exam: REGULAR RHYTHM, +S1, +S2. absent: Murmur - GI/Abdominal Exam GI & Abdominal Exam: Soft, Normal Bowel Sounds. absent: Distended, Firm, Guarding, Rigid, Tenderness Additional comments: Incision C/D/I Drain 80cc overnight sero bilious - Extremities Exam Additional comments: heel boots in place. - Back Exam Back Exam: NORMAL INSPECTION - Neurological Exam Neurological Exam: Altered. 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 Pt is s/p EGD/EUS with EMR complicated by bleeding and perforation s/p clip placement x 7, epi injection, and bipolar cautery. POD 2 s/p exploraty laparotomy primary repair of duodenal perf and grahm patch NGT pulled overnight 100cc bilious /ON, 250cc/24hrs Urine 500cc/24hrs MANFRED possible ATN : Picking up urine output. VDRF -NPO -PPN -ICU management -Labs -PTX -Pain control -I & O -ABX -Possible HD cath if HD needed Will DW Dr. Alatorre <Deion Alatorre - Last Filed: 12/21/17 00:46> Objective - Vital Signs/Intake and Output Vital Signs (last 24 hours): Temp Pulse Resp BP Pulse Ox 98.8 F 108 H 13 101/53 L 100 12/20/17 19:00 12/21/17 00:00 12/20/17 19:00 12/20/17 23:54 12/21/17 00:00 Intake and Output: 12/20/17 12/21/17 18:59 06:59 Intake Total 2356.4 1758.2 Output Total 515 65 Balance 1841.4 1693.2 - Medications Medications: Current Medications Acetaminophen (Tylenol 650 Mg Supp) 650 mg WV Q4 PRN PRN Reason: Fever >100.4 F Albuterol/Ipratropium (Duoneb 3 Mg/0.5 Mg (3 Ml) Ud) 3 ml INH RQ4 PRN PRN Reason: Shortness of Breath Last Admin: 12/18/17 20:12 Dose: 3 ml Dextrose (Dextrose 50% Inj) 0 ml IV STAT PRN; Protocol PRN Reason: Hypoglycemia Protocol Dextrose (Glutose 15) 15 gm PO ONCE PRN; Protocol PRN Reason: Hypoglycemia Protocol Glucagon (Glucagen Diagnostic Kit) 1 mg IM STAT PRN; Protocol PRN Reason: Hypoglycemia Protocol Heparin Sodium (Porcine) (Heparin) 5,000 units SC Q8 FESTUS Last Admin: 12/20/17 14:30 Dose: Not Given Hydromorphone HCl (Dilaudid) 0.5 mg IVP Q4H PRN PRN Reason: Pain, severe (8-10) Last Admin: 12/18/17 13:04 Dose: 0.5 mg Pantoprazole Sodium 80 mg/ (Sodium Chloride) 100 mls @ 10 mls/hr IV .Q10H FESTUS PRN Reason: 8 MG/HR Last Admin: 12/20/17 17:49 Dose: 10 mls/hr Dextrose (Dextrose 5% In Water 1000 Ml) 1,000 mls @ 0 mls/hr IV .Q0M PRN; Protocol; Per Protocol PRN Reason: Hypoglycemia Protocol Meropenem 500 mg/ Sodium (Chloride) 100 mls @ 100 mls/hr IVPB Q12 FESTUS PRN Reason: Protocol Last Admin: 12/20/17 21:02 Dose: 100 mls/hr BUPIVACAINE 0.125%/0.9% NACL (Bupivacaine-Ns 0.125% On-Q Vp Security) 600 mls @ 4 mls/ hr IJ ONCE ONE Stop: 12/24/17 21:59 Last Admin: 12/18/17 18:20 Dose: Not Given Sodium Bicarbonate 150 meq/ (Dextrose) 1,150 mls @ 80 mls/hr IV .[id number] FESTUS Last Admin: 12/20/17 18:03 Dose: 80 mls/hr Fentanyl Citrate 2,500 mcg/ (Sodium Chloride) 250 mls @ 21.31 mls/hr IV .[id number] FESTUS; 2 MCG/KG/HR PRN Reason: Protocol Last Admin: 12/20/17 20:59 Dose: 1 mcg/kg/hr, 10.65 mls/hr Multivitamins/Vitamin C 10 ml/ (Amino Acids) 1,010 mls @ 84 mls/hr IV .Q12H2M FESTUS Stop: 12/21/17 06:00 Last Admin: 12/20/17 17:50 Dose: 84 mls/hr Amino Acids (Clinimix 4.25/5 % "E" (1000 Ml)) 1,000 mls @ 84 mls/hr IV .[id number] ONE Stop: 12/21/17 18:24 Micafungin Sodium 100 mg/ (Sodium Chloride) 100 mls @ 100 mls/hr IV Q24H FESTUS PRN Reason: Protocol Linezolid (Zyvox 600mg/300ml D5w) 600 mg in 300 mls @ 200 mls/hr IVPB Q12 FESTUS PRN Reason: Protocol Last Admin: 12/20/17 21:00 Dose: 200 mls/hr Insulin Human Regular (Novolin R) 0 unit SC Q6 FESTUS PRN Reason: Protocol Last Admin: 12/20/17 18:07 Dose: Not Given Ondansetron HCl (Zofran Inj) 4 mg IVP Q4 PRN PRN Reason: Nausea/Vomiting - Labs Labs: 12/20/17 07:46 12/20/17 06:30 PT 15.9 SECONDS (9.7-12.2) H 12/18/17 12:39 INR 1.5 12/18/17 12:39 APTT 40 SECONDS (21-34) H 12/18/17 12:39 Attending/Attestation - Attestation I have personally seen and examined this patient.: Yes I have fully participated in the care of the patient.: Yes I have reviewed all pertinent clinical information, including history, physical exam and plan: Yes Notes (Text): Pt is intubated and sedated Replace NG tube Place HD catheter as per ICU attending Consent NPO, IVF, PPN IV antibiotics Plan d.w primary team in detail
--- NOTE | 2017-12-20 07:49 | CP.PCM.PN ---
<Benita Hurst - Last Filed: 12/20/17 07:57> Subjective - Date & Time of Evaluation Date of Evaluation: 12/20/17 Time of Evaluation: 06:30 - Subjective Subjective: GI Fellow PGY4 Progress Note Pt seen and evaluated at bedside, pt intubated s/p repair of perforation. Pt unable to be weaned last night, very agitated, started on fentanyl drip and pt pulled out NGT. Pt spiked a Tmax 101.6 and started on PPN by ICU team. 1 liquid BM overnight. Pt hemodynamically stable, with no pressor support. With minimal urine outpt overnight, 250cc after Bumex, +5L. Surgical drains with 250cc of serosanguinous outpt. ROS:A 12pt ROS was unable to be obtained due to AMS Objective - Vital Signs/Intake and Output Vital Signs (last 24 hours): Temp Pulse Resp BP Pulse Ox 98.6 F 106 H 22 134/61 98 12/20/17 04:00 12/20/17 07:07 12/19/17 18:00 12/20/17 07:07 12/20/17 07:07 Intake and Output: 12/20/17 12/20/17 06:59 18:59 Intake Total 2843.6 234.7 Output Total 520 210 Balance 2323.6 24.7 - Medications Medications: Current Medications Acetaminophen (Tylenol 650 Mg Supp) 650 mg [place] Q4 PRN PRN Reason: Fever >100.4 F Albumin Human (Albumin Human 25% (12.5 Gm/50 Ml)) 25 gm IV Q6H [facility] Stop: 12/21/17 00:16 Last Admin: 12/20/17 05:44 Dose: 25 gm Albuterol/Ipratropium (Duoneb 3 Mg/0.5 Mg (3 Ml) Ud) 3 ml INH RQ4 PRN PRN Reason: Shortness of Breath Last Admin: 12/18/17 20:12 Dose: 3 ml Dextrose (Dextrose 50% Inj) 0 ml IV STAT PRN; Protocol PRN Reason: Hypoglycemia Protocol Dextrose (Glutose 15) 15 gm PO ONCE PRN; Protocol PRN Reason: Hypoglycemia Protocol Glucagon (Glucagen Diagnostic Kit) 1 mg IM STAT PRN; Protocol PRN Reason: Hypoglycemia Protocol Heparin Sodium (Porcine) (Heparin) 5,000 units SC Q8 FESTUS Last Admin: 12/20/17 05:43 Dose: 5,000 units Hydromorphone HCl (Dilaudid) 0.5 mg IVP Q4H PRN PRN Reason: Pain, severe (8-10) Last Admin: 12/18/17 13:04 Dose: 0.5 mg Pantoprazole Sodium 80 mg/ (Sodium Chloride) 100 mls @ 10 mls/hr IV .Q10H FESTUS PRN Reason: 8 MG/HR Last Admin: 12/20/17 05:42 Dose: 10 mls/hr Dextrose (Dextrose 5% In Water 1000 Ml) 1,000 mls @ 0 mls/hr IV .Q0M PRN; Protocol; Per Protocol PRN Reason: Hypoglycemia Protocol Meropenem 500 mg/ Sodium (Chloride) 100 mls @ 100 mls/hr IVPB Q12 FESTUS PRN Reason: Protocol Last Admin: 12/19/17 22:54 Dose: 100 mls/hr BUPIVACAINE 0.125%/0.9% NACL (Bupivacaine-Ns 0.125% On-Q [place]man Operator) 600 mls @ 4 mls/ hr IJ ONCE ONE Stop: 12/24/17 21:59 Last Admin: 12/18/17 18:20 Dose: Not Given Sodium Bicarbonate 150 meq/ (Dextrose) 1,150 mls @ 80 mls/hr IV .[id number] FESTUS Last Admin: 12/19/17 23:45 Dose: Not Given Amino Acids (Clinimix 4.25/5 % "E" (1000 Ml)) 1,000 mls @ 84 mls/hr IV .[id number] FESTUS Stop: 12/20/17 17:59 Last Admin: 12/20/17 06:21 Dose: 84 mls/hr Fentanyl Citrate 2,500 mcg/ (Sodium Chloride) 250 mls @ 21.31 mls/hr IV .[id number] FESTUS; 2 MCG/KG/HR PRN Reason: Protocol Last Titration: 12/19/17 22:55 Dose: 1 mcg/kg/hr, 10.65 mls/hr Insulin Human Regular (Novolin R) 0 unit SC Q6 FESTUS PRN Reason: Protocol Last Admin: 12/20/17 06:21 Dose: Not Given Ondansetron HCl (Zofran Inj) 4 mg IVP Q4 PRN PRN Reason: Nausea/Vomiting - Labs Labs: 12/20/17 06:26 12/20/17 06:30 PT 15.9 SECONDS (9.7-12.2) H 12/18/17 12:39 INR 1.5 12/18/17 12:39 APTT 40 SECONDS (21-34) H 12/18/17 12:39 - Constitutional Appears: Toxic, In Acute Distress - Head Exam Head Exam: ATRAUMATIC, NORMAL INSPECTION, NORMOCEPHALIC - Eye Exam Eye Exam: PERRL - ENT Exam ENT Exam: Mucous Membranes Dry Additional comments: ETT - Neck Exam Neck Exam: Normal Inspection - Respiratory Exam Respiratory Exam: Rhonchi, Respiratory Distress - Cardiovascular Exam Cardiovascular Exam: Tachycardia, +S1, +S2 - GI/Abdominal Exam GI & Abdominal Exam: Distended, Soft, Hypoactive Bowel Sounds. 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 Pt is s/p EGD/EUS with EMR complicated by bleeding and perforation s/p clip placement x 7, epi injection, and bipolar cautery. 1. Duodenal perforation s/p surgical repair POD#1 2. 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 Metabolic acidosis 4. Elevated LFTs 5. ARF possible ATN 6. Sepsis 7. VDRF 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 and perforation that was treated with a combination of clipping, electrocautery and epinephrine - Duodenal perforation with no closure seen on repeat CT and UpperGI series, pt taken to OR with repair of perforation with jourdan patch POD#2 - Hgb stable with no acute blood loss anemia, not requiring transfusion - Protonix drip - IV abx - Pt clinically hemodynamically stable, BP on the lower side - ARF likely ATN, worsening urine output and ARF, appreciate nephrology consult , pt's Cr is worsening with minimal outpt after Bumex, pt is heading towards dialysis - Will discuss with surgery and nephrology about possible permacath for HD - Pt may benefit from TLC instead of PICC line in setting of ARF and need for HD - Metabolic acidosis likely from ARF - IVF hydration and Bicarb/Calcium - NPO - Pt started on PPN by ICU team, will discuss with surgery on plans for starting nutritional support with tube feeds instead of PPN - Appreciate surgical consult - Will continue to follow pt closely <Andrew Flynn - Last Filed: 12/20/17 09:20> Objective - Vital Signs/Intake and Output Vital Signs (last 24 hours): Temp Pulse Resp BP Pulse Ox 98.6 F 106 H 22 109/49 L 99 12/20/17 04:00 12/20/17 08:11 12/19/17 18:00 12/20/17 08:11 12/20/17 08:11 Intake and Output: 12/20/17 12/20/17 06:59 18:59 Intake Total 2843.6 419.4 Output Total 520 225 Balance 2323.6 194.4 - Medications Medications: Current Medications Acetaminophen (Tylenol 650 Mg Supp) 650 mg ME Q4 PRN PRN Reason: Fever >100.4 F Albumin Human (Albumin Human 25% (12.5 Gm/50 Ml)) 25 gm IV Q6H FESTUS Stop: 12/21/17 00:16 Last Admin: 12/20/17 05:44 Dose: 25 gm Albuterol/Ipratropium (Duoneb 3 Mg/0.5 Mg (3 Ml) Ud) 3 ml INH RQ4 PRN PRN Reason: Shortness of Breath Last Admin: 12/18/17 20:12 Dose: 3 ml Dextrose (Dextrose 50% Inj) 0 ml IV STAT PRN; Protocol PRN Reason: Hypoglycemia Protocol Dextrose (Glutose 15) 15 gm PO ONCE PRN; Protocol PRN Reason: Hypoglycemia Protocol Glucagon (Glucagen Diagnostic Kit) 1 mg IM STAT PRN; Protocol PRN Reason: Hypoglycemia Protocol Heparin Sodium (Porcine) (Heparin) 5,000 units SC Q8 FESTUS Last Admin: 12/20/17 05:43 Dose: 5,000 units Hydromorphone HCl (Dilaudid) 0.5 mg IVP Q4H PRN PRN Reason: Pain, severe (8-10) Last Admin: 12/18/17 13:04 Dose: 0.5 mg Pantoprazole Sodium 80 mg/ (Sodium Chloride) 100 mls @ 10 mls/hr IV .Q10H FESTUS PRN Reason: 8 MG/HR Last Admin: 12/20/17 05:42 Dose: 10 mls/hr Dextrose (Dextrose 5% In Water 1000 Ml) 1,000 mls @ 0 mls/hr IV .Q0M PRN; Protocol; Per Protocol PRN Reason: Hypoglycemia Protocol Meropenem 500 mg/ Sodium (Chloride) 100 mls @ 100 mls/hr IVPB Q12 FESTUS PRN Reason: Protocol Last Admin: 12/19/17 22:54 Dose: 100 mls/hr BUPIVACAINE 0.125%/0.9% NACL (Bupivacaine-Ns 0.125% On-Q [place] Operator) 600 mls @ 4 mls/ hr IJ ONCE ONE Stop: 12/24/17 21:59 Last Admin: 12/18/17 18:20 Dose: Not Given Sodium Bicarbonate 150 meq/ (Dextrose) 1,150 mls @ 80 mls/hr IV .[id number] FESTUS Last Admin: 12/19/17 23:45 Dose: Not Given Amino Acids (Clinimix 4.25/5 % "E" (1000 Ml)) 1,000 mls @ 84 mls/hr IV .[id number] FESTUS Stop: 12/20/17 17:59 Last Admin: 12/20/17 06:21 Dose: 84 mls/hr Fentanyl Citrate 2,500 mcg/ (Sodium Chloride) 250 mls @ 21.31 mls/hr IV .[id number] FESTUS; 2 MCG/KG/HR PRN Reason: Protocol Last Titration: 12/19/17 22:55 Dose: 1 mcg/kg/hr, 10.65 mls/hr Calcium Gluconate 2,000 mg/ (Sodium Chloride) 270 mls @ 42 mls/hr IVPB ONCE ONE PRN Reason: Per Protocol Stop: 12/20/17 14:55 Insulin Human Regular (Novolin R) 0 unit SC Q6 FESTUS PRN Reason: Protocol Last Admin: 12/20/17 06:21 Dose: Not Given Ondansetron HCl (Zofran Inj) 4 mg IVP Q4 PRN PRN Reason: Nausea/Vomiting - Labs Labs: 12/20/17 07:46 12/20/17 06:30 PT 15.9 SECONDS (9.7-12.2) H 12/18/17 12:39 INR 1.5 12/18/17 12:39 APTT 40 SECONDS (21-34) H 12/18/17 12:39 Attending/Attestation - Attestation I have personally seen and examined this patient.: Yes I have fully participated in the care of the patient.: Yes I have reviewed all pertinent clinical information, including history, physical exam and plan: Yes Notes (Text): 12/20/17 09:19 77 year old female with duodenal carcinoid s/p EMR c/b perforation now s/p laparotomy with jourdan patch closure of defect, course complicated by MANFRED 2/2 ATN. She remains critically ill in ICU on vent. Renal failure does not appear to be improving. Would recommend hemodialysis per nephrology. Wean from vent as tolerated. Continue broad spectrum abx. Appreciate surgical recs post op.
[2017-12-20 07:54] LABS: HEMOGLOBIN 8.1 g/dL (11.0-16.0); MEAN CELL VOLUME 85.9 fL (81.0-99.0); MEAN CORPUSCULAR HEMOGLOBIN 28.6 pg (27.0-31.0); MEAN CORPUSCULAR HGB CONC 33.3 g/dL (33.0-37.0); MEAN PLATELET VOLUME 9.6 fL (7.2-11.7); RBC 2.83 Mil/uL (3.80-5.20); RED CELL DISTRIBUTION WIDTH 14.1 % (11.5-14.5); WHITE BLOOD COUNT 4.6 K/uL (4.8-10.8)
--- NOTE | 2017-12-20 08:17 | RAD ---
PROCEDURE: CHEST RADIOGRAPH, 1 VIEW HISTORY: check ET position COMPARISON: 12/18/2017. FINDINGS: Endotracheal tube terminates 1.7 cm proximal to the kathy. LUNGS: There are low lung volumes. No focal consolidation. PLEURA: No pneumothorax or pleural fluid seen. CARDIOVASCULAR: Normal. OSSEOUS STRUCTURES: No significant abnormalities. VISUALIZED UPPER ABDOMEN: Normal. OTHER FINDINGS: None. IMPRESSION: Stable position of endotracheal tube. Low lung volumes may be related to poor inspiratory effort. No acute findings.
--- NOTE | 2017-12-20 08:36 | RAD ---
HISTORY: intubated COMPARISON: 12/19/2017. FINDINGS: The endotracheal tube terminates 1.5 cm proximal to the kathy. LUNGS: The lungs are well inflated. There is moderate pulmonary venous congestion. PLEURA: No significant pleural effusion identified, no pneumothorax apparent. CARDIOVASCULAR: There is persistent mild cardiomegaly and prominent central vasculature. OSSEOUS STRUCTURES: No significant abnormalities. VISUALIZED UPPER ABDOMEN: Normal. OTHER FINDINGS: None. IMPRESSION: Endotracheal tube terminates 1.5 cm proximal to the kathy. Persistent mild cardiomegaly and moderate pulmonary venous congestion.
[2017-12-20] MEDS ORDERED: PPN#4 IV ONE (11:15)
--- NOTE | 2017-12-20 11:56 | CP.PCM.PN ---
Subjective - Date & Time of Evaluation Date of Evaluation: 12/20/17 Time of Evaluation: 11:51 - Subjective Subjective: Nephrology Consultation Note: Assessment: critical oliguric Acute Kidney Injury (N17.9) likely hemodynamic injury leading to ATN with Pulmonary congestion HAGMA with respi compensation, hypocalcemia carcinoid HTN crisis s/p resection now resolved acute abdomen with perforation s/p repair 12/18/17 (ex lap) hypertension, COPD, breast cancer s/p lumpectomy and duodenal neuroendocrine tumor Plan due to worsening renal parameters, oliguric state and pulmonary congestion, renal replacement therapy indicated at this time. Eventually, anticipate spontaneous renal recovery. d/w ICU to consult surgery for temporary dialysis catheter. called daughter to obtain consent for dialysis, left message no answer yet. had spoken to other family members yesterday who had agreed verbally for dialysis when needed. supportive management for now. No ACEI/ARB due to MANFRED. BP on low side. maintain hemodynamics stable. Monitor Input/Output, daily weights and renal function with basic metabolic panel minimize IVF agree with IV calcium gluconate supplementation anemia: PRBC as needed Dose meds/antibiotics for reduced GFR. Avoid fleets enema/magnesium based laxatives. Avoid nephrotoxins/NSAIDs/ iodinated contrast (unless needed emergently) Glycemic control Further work up/management as per primary team Thanks for allowing me to participate in care of your patient. Will follow patient with you. Please call if any Qs. 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 she also had HTN crisis which was treated with cardene drip. renal consult for MANFRED eval. also found to have free air in abdomen Denies OTC/herbal meds or NSAIDs No recent iodinated contrast exposure. Noted obvious episodes of low BP (89/51). ROS: unable as pt intubated Physical Examination: General Appearance: remains intubated, ill appearing Vitals reviewed and noted as below Head; Atraumatic, normocephalic ENT: orally intubated EYES: Pupils are equal, round and reactive to light accommodation. Eye muscles and extraocular movement intact. Sclera is anicteric. Neck; supple no lymphadenopathy, no thyromegaly or bruit Lungs: Normal respiratory rate/effort. Breath sounds bilateral equal and bilateral rales + Heart: Normal rate. s1s2 normal. No rub or gallop. Extremities: no edema. No varicose veins Neurological: Patient is sedated Skin: Warm and dry. Normal turgor. No rash. Palpitation: Normal elasticity for age Abdomen: no abdominal tenderness with out guarding but no rigidity no organomegaly s/p exlap Psych: unable MSK: no joint tenderness or swelling. Digits and nails normal, no deformity : kidney or bladder not palpable. has bruce with bluish/green color urine ? due to methylene blue dye Labs/imaging reviewed. Past medical history, past surgical history, family history, social history, allergy reviewed and noted as below Family hx: no hx of CKD. Rest non-contributory renal imaging: WNL FeNa 0.7% UA 1+ protein no blood Objective - Vital Signs/Intake and Output Vital Signs (last 24 hours): Temp Pulse Resp BP Pulse Ox 98.6 F 100 H 22 130/60 99 12/20/17 04:00 12/20/17 11:00 12/19/17 18:00 12/20/17 10:41 12/20/17 11:00 Intake and Output: 12/20/17 12/20/17 06:59 18:59 Intake Total 2843.6 813.5 Output Total 820 260 Balance 2023.6 553.5 - Medications Medications: Current Medications Acetaminophen (Tylenol 650 Mg Supp) 650 mg ND Q4 PRN PRN Reason: Fever >100.4 F Albumin Human (Albumin Human 25% (12.5 Gm/50 Ml)) 25 gm IV Q6H FESTUS Stop: 12/21/17 00:16 Last Admin: 12/20/17 05:44 Dose: 25 gm Albuterol/Ipratropium (Duoneb 3 Mg/0.5 Mg (3 Ml) Ud) 3 ml INH RQ4 PRN PRN Reason: Shortness of Breath Last Admin: 12/18/17 20:12 Dose: 3 ml Dextrose (Dextrose 50% Inj) 0 ml IV STAT PRN; Protocol PRN Reason: Hypoglycemia Protocol Dextrose (Glutose 15) 15 gm PO ONCE PRN; Protocol PRN Reason: Hypoglycemia Protocol Glucagon (Glucagen Diagnostic Kit) 1 mg IM STAT PRN; Protocol PRN Reason: Hypoglycemia Protocol Heparin Sodium (Porcine) (Heparin) 5,000 units SC Q8 FESTUS Last Admin: 12/20/17 05:43 Dose: 5,000 units Hydromorphone HCl (Dilaudid) 0.5 mg IVP Q4H PRN PRN Reason: Pain, severe (8-10) Last Admin: 12/18/17 13:04 Dose: 0.5 mg Pantoprazole Sodium 80 mg/ (Sodium Chloride) 100 mls @ 10 mls/hr IV .Q10H FESTUS PRN Reason: 8 MG/HR Last Admin: 12/20/17 05:42 Dose: 10 mls/hr Dextrose (Dextrose 5% In Water 1000 Ml) 1,000 mls @ 0 mls/hr IV .Q0M PRN; Protocol; Per Protocol PRN Reason: Hypoglycemia Protocol Meropenem 500 mg/ Sodium (Chloride) 100 mls @ 100 mls/hr IVPB Q12 FESTUS PRN Reason: Protocol Last Admin: 12/19/17 22:54 Dose: 100 mls/hr BUPIVACAINE 0.125%/0.9% NACL (Bupivacaine-Ns 0.125% On-Q [employer]) 600 mls @ 4 mls/ hr IJ ONCE ONE Stop: 12/24/17 21:59 Last Admin: 12/18/17 18:20 Dose: Not Given Sodium Bicarbonate 150 meq/ (Dextrose) 1,150 mls @ 80 mls/hr IV .[id number] ON LICENSE OF [facility] Last Admin: 12/19/17 23:45 Dose: Not Given Amino Acids (Clinimix 4.25/5 % "E" (1000 Ml)) 1,000 mls @ 84 mls/hr IV .[id number] FESTUS Stop: 12/20/17 17:59 Last Admin: 12/20/17 06:21 Dose: 84 mls/hr Fentanyl Citrate 2,500 mcg/ (Sodium Chloride) 250 mls @ 21.31 mls/hr IV .[id number] FESTUS; 2 MCG/KG/HR PRN Reason: Protocol Last Titration: 12/19/17 22:55 Dose: 1 mcg/kg/hr, 10.65 mls/hr Calcium Gluconate 2,000 mg/ (Sodium Chloride) 270 mls @ 42 mls/hr IVPB ONCE ONE PRN Reason: Per Protocol Stop: 12/20/17 14:55 Last Admin: 12/20/17 09:33 Dose: 42 mls/hr Multivitamins/Vitamin C 10 ml/ (Amino Acids) 1,010 mls @ 84 mls/hr IV .Q12H2M FESTUS Stop: 12/21/17 06:00 Amino Acids (Clinimix 4.25/5 % "E" (1000 Ml)) 1,000 mls @ 84 mls/hr IV .[id number] ONE Stop: 12/21/17 18:24 Insulin Human Regular (Novolin R) 0 unit SC Q6 FESTUS PRN Reason: Protocol Last Admin: 12/20/17 06:21 Dose: Not Given Ondansetron HCl (Zofran Inj) 4 mg IVP Q4 PRN PRN Reason: Nausea/Vomiting - Labs Labs: 12/20/17 07:46 12/20/17 06:30 PT 15.9 SECONDS (9.7-12.2) H 12/18/17 12:39 INR 1.5 12/18/17 12:39 APTT 40 SECONDS (21-34) H 12/18/17 12:39
--- NOTE | 2017-12-20 12:06 | CP.PCM.PN ---
Subjective - Date & Time of Evaluation Date of Evaluation: 12/20/17 Time of Evaluation: 12:00 - Subjective Subjective: Patient remains intubated at this time. Currently on PS support settings The patient was able to open her eyes when I called her name Overnight she pulled out her NGT She was started on PPN Clinimix Objective - Vital Signs/Intake and Output Vital Signs (last 24 hours): Temp Pulse Resp BP Pulse Ox 98.6 F 100 H 22 130/60 99 12/20/17 04:00 12/20/17 11:00 12/19/17 18:00 12/20/17 10:41 12/20/17 11:00 Intake and Output: 12/20/17 12/20/17 06:59 18:59 Intake Total 2843.6 813.5 Output Total 820 260 Balance 2023.6 553.5 - Medications Medications: Current Medications Acetaminophen (Tylenol 650 Mg Supp) 650 mg CO Q4 PRN PRN Reason: Fever >100.4 F Albumin Human (Albumin Human 25% (12.5 Gm/50 Ml)) 25 gm IV Q6H FESTUS Stop: 12/21/17 00:16 Last Admin: 12/20/17 05:44 Dose: 25 gm Albuterol/Ipratropium (Duoneb 3 Mg/0.5 Mg (3 Ml) Ud) 3 ml INH RQ4 PRN PRN Reason: Shortness of Breath Last Admin: 12/18/17 20:12 Dose: 3 ml Dextrose (Dextrose 50% Inj) 0 ml IV STAT PRN; Protocol PRN Reason: Hypoglycemia Protocol Dextrose (Glutose 15) 15 gm PO ONCE PRN; Protocol PRN Reason: Hypoglycemia Protocol Glucagon (Glucagen Diagnostic Kit) 1 mg IM STAT PRN; Protocol PRN Reason: Hypoglycemia Protocol Heparin Sodium (Porcine) (Heparin) 5,000 units SC Q8 FESTUS Last Admin: 12/20/17 05:43 Dose: 5,000 units Hydromorphone HCl (Dilaudid) 0.5 mg IVP Q4H PRN PRN Reason: Pain, severe (8-10) Last Admin: 12/18/17 13:04 Dose: 0.5 mg Pantoprazole Sodium 80 mg/ (Sodium Chloride) 100 mls @ 10 mls/hr IV .Q10H FESTUS PRN Reason: 8 MG/HR Last Admin: 12/20/17 05:42 Dose: 10 mls/hr Dextrose (Dextrose 5% In Water 1000 Ml) 1,000 mls @ 0 mls/hr IV .Q0M PRN; Protocol; Per Protocol PRN Reason: Hypoglycemia Protocol Meropenem 500 mg/ Sodium (Chloride) 100 mls @ 100 mls/hr IVPB Q12 FESTUS PRN Reason: Protocol Last Admin: 12/19/17 22:54 Dose: 100 mls/hr BUPIVACAINE 0.125%/0.9% NACL (Bupivacaine-Ns 0.125% On-Q [employer]) 600 mls @ 4 mls/ hr IJ ONCE ONE Stop: 12/24/17 21:59 Last Admin: 12/18/17 18:20 Dose: Not Given Sodium Bicarbonate 150 meq/ (Dextrose) 1,150 mls @ 80 mls/hr IV .[id number] [facility] Last Admin: 12/19/17 23:45 Dose: Not Given Amino Acids (Clinimix 4.25/5 % "E" (1000 Ml)) 1,000 mls @ 84 mls/hr IV .[id number] [facility] Stop: 12/20/17 17:59 Last Admin: 12/20/17 06:21 Dose: 84 mls/hr Fentanyl Citrate 2,500 mcg/ (Sodium Chloride) 250 mls @ 21.31 mls/hr IV .[id number] FESTUS; 2 MCG/KG/HR PRN Reason: Protocol Last Titration: 12/19/17 22:55 Dose: 1 mcg/kg/hr, 10.65 mls/hr Calcium Gluconate 2,000 mg/ (Sodium Chloride) 270 mls @ 42 mls/hr IVPB ONCE ONE PRN Reason: Per Protocol Stop: 12/20/17 14:55 Last Admin: 12/20/17 09:33 Dose: 42 mls/hr Multivitamins/Vitamin C 10 ml/ (Amino Acids) 1,010 mls @ 84 mls/hr IV .Q12H2M FESTUS Stop: 12/21/17 06:00 Amino Acids (Clinimix 4.25/5 % "E" (1000 Ml)) 1,000 mls @ 84 mls/hr IV .[id number] ONE Stop: 12/21/17 18:24 Insulin Human Regular (Novolin R) 0 unit SC Q6 FESTUS PRN Reason: Protocol Last Admin: 12/20/17 06:21 Dose: Not Given Ondansetron HCl (Zofran Inj) 4 mg IVP Q4 PRN PRN Reason: Nausea/Vomiting - Labs Labs: 12/20/17 07:46 12/20/17 06:30 PT 15.9 SECONDS (9.7-12.2) H 12/18/17 12:39 INR 1.5 12/18/17 12:39 APTT 40 SECONDS (21-34) H 12/18/17 12:39 - Constitutional Appears: Toxic, Chronically Ill - ENT Exam ENT Exam: Mucous Membranes Moist - Respiratory Exam Respiratory Exam: Decreased Breath Sounds Additional comments: Intubated - GI/Abdominal Exam GI & Abdominal Exam: Soft Additional comments: Patient has two KORI with dark serosangenious color liquid Also what appears to be a bupivicane pump The dressing over abdomen appears dry at this moment - Neurological Exam Neuro motor strength exam: Left Upper Extremity: 4, Right Upper Extremity: 4 - Skin Skin Exam: Pallor, Warm Assessment and Plan - Assessment and Plan (Free Text) Assessment: Overall: "This is a 77yo female with history of hypertension, COPD, breast cancer s/p lumpectomy that presented to same day 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 During the procedure, patient experienced a significant amount of bleeding which was treated with a combination of clipping , electrocautery and epinephrine. Bleeding was significantly reduced however patient was subsequently admitted to ICU for close observation. She had underwent EGD/Colonoscopy on 12/05/17 due to worsening reflux symptoms with progressive substernal burning that started approximately 2 months prior. At that time, EGD/Colonsocopy was significant for duodenal nodule that was biopsied and revealed well differentiated neuroendocrine tumor. Patient was admitted to ICU due to SBP 220/140s initially on cardene drip x 1 - 2 hours- now normotensive; patient now in ATN with CRE of 4.5, bandemia downtrending with elevated procal, lactate initially 2.4 now 1.7. Returned to OR 12/18/17 due to increasing free air noted on repeat CT scan ; s/p ex lap primary repair of duodenal perforation, jourdan patch. Omentectomy." Metabolic acidosis from sepsis, duodenal perforation, acute kidney injury. 12/20: Remains on the bicarb ggt at this time. The serum bicarb was better this morning. 12/19: Today the serum bicarb is 16. The pH on ABG was 7.27, she is on D5W with NaBicarb @ 150 cc / hr 12/18: Serum bicarb was 22 yesterday now 14 this morning. Check ABG as well as a repeat CT scan of the chest abdomen and pelvis. She is on abx, however this may need to be changed if the cultures come back positive. Procalcitonin was high but the WBC was low. Afebrile. The first CT done on 12/16 reported that there was some intrapertoneal air about the 1st and 2nd duodenum extending into gall bladder fossa No hemopertinium. Acute Kidney Injury 12/20: Urine out put was about 460 cc over 24hrs. Creatine remains elevated. 12/19: Creatine remains elevated, urine out put recorded was 415 12/18: Rising creatine, pending ABG shock panel. Maybe sepsis related or abdominal complications. Anemia: 12/20: Hgb dropped to 8.8, probably secondary to bleeding or dilutional from the IVF. Hypertension - currently hypotensive 12/18: Currently systolic in the low 100s. Off of cardene ggt. 12/17: Now off of the cardene ggt. Her BP systolics have been stable since yesterday afternoon. Probably the very elevated numbers were from the carcinoid tumour that is now removed. - Started on Cardene Drip - will titrate and continue to monitor Duodenal carcinoid tumor- S/P endoscopic mucosal resection 12/16/1712/19: Patient is POD 1 of exploratormy lapartomy and repair of perforation. 12/17: Blood pressures now stable, Hgb is also stable as well. Respiratory failure 12/20: Remains intubated at this time. Currently on PS settings 12/19: Currently intubated at this time 12/17: Heme/ Onc: A: Hx breast cancer s/p lumpectomy Protonix
--- NOTE | 2017-12-20 12:19 | RAD ---
HISTORY: s/p PICC line insertion COMPARISON: 12/20/2017 FINDINGS: LUNGS: No active pulmonary disease. PLEURA: No significant pleural effusion identified, no pneumothorax apparent. CARDIOVASCULAR: ET tube tip 12 mm above the tracheal kathy. This should be repositioned more proximally. OSSEOUS STRUCTURES: No significant abnormalities. VISUALIZED UPPER ABDOMEN: Normal. OTHER FINDINGS: None. IMPRESSION: No active disease. ET tube tip approximately 12 mm above tracheal kathy. This should be repositioned more proximally.
[2017-12-20] MEDS: Meropenem 500 MG in Sodium Chloride 0.9% 100 ML IVPB SCH ×2 (13:25→21:02)
--- NOTE | 2017-12-20 15:49 | PCM.PROC ---
Procedures Attestation:: I certify that I have explained the specified Operation(s) or Procedure(s), risks, benefits and reasonable alternatives to the Patient and/or other person responsible. The opportunity was given to ask questions and all questions answered - Central Line Placement Right Femoral Hemodialysis Access Aseptic technique was employed throughout the procedure: Hand Hygiene done prior to procedure, Full body sterile drape, Chloraprep Antiseptic: 2 minute prep for Femoral CVP Time Out Performed: Yes Pt. Placed on Pulse Ox Monitor: Yes Central Line Prep: Chlorhexidine-Alcohol Combination Local Anesthesia Used: Lidocaine 1% Amount of Anesthesia Used (mls): 5 Ultrasound Used for Placement: Yes Central Line Lumen Inserted: triple Central Line Length: 20 cm Post Procedure: Sutured in Place, Good Blood Return, All Ports Aspirated, Flushed, Capped Secured by: Suture Post procedure dressing: Clear vapor permeable Post Procedure X-Ray: No Patient Tolerated Procedure: Well Immediate Complications: None
--- NOTE | 2017-12-20 16:13 | CP.CCUPN ---
<Estefania Veliz - Last Filed: 12/20/17 16:32> CCU Subjective - Physician Review Subjective (Free Text): Patient seen and examined at bedside. Intubated on PRVC 14/60/500/5. Patient removed NGT. Patient had 500cc/24 urine output, worsening renal function. Right femoral shiley catheter inserted. Consented for dialysis. Dialysis today and tomorrow. CCU Objective - Vital Signs / Intake & Output Vital Signs (Last 4 hours): Vital Signs Pulse BP Pulse Ox 12/20/17 13:42 106 H 122/74 97 12/20/17 13:12 110 H 118/56 L 99 12/20/17 12:42 103 H 131/68 99 12/20/17 12:12 108 H 145/70 95 Intake and Output (Last 8hrs): Intake & Output 12/20/17 12/20/17 12/20/17 06:59 14:59 22:59 Intake Total 1577.6 813.5 Output Total 320 385 Balance 1257.6 428.5 Weight 235 lb Intake: Intake, IV Amount 1477.6 763.5 Left Antecubital 336 Left Foot 85.6 53.5 Left Hand 672 84 Right Antecubital 80 10 Rt AC 640 80 left AC y port 40 y port left foot 160 Blood Product 100 50 Red Blood Cells Cpd As1 0 Lr Unit [id number] Output: Drainage 180 180 KORI 1 60 60 KORI 2 120 120 Urine 140 205 Urethral (Bruce) 140 205 Other: # Bowel Movements 1 - Physical Exam Head: Positive for: Atraumatic, Normocephalic, Ecchymosis Extroacular Muscles: Positive for: EOMI Conjunctiva: Positive for: Normal Mouth: Positive for: Other (INTUBATED) Nose (External): Positive for: Other (NGT in place ) Respiratory/Chest: Positive for: Clear to Auscultation. Negative for: Decreased Breath Sounds Cardiovascular: Positive for: Regular Rate and Rhythm Abdomen: Positive for: Tenderness, Normal Bowel Sounds, Guarding. Negative for : Distention Upper Extremity: Positive for: Normal Inspection, NORMAL PULSES, Neurovascularly Intact, Capillary Refill < 2s Lower Extremity: Positive for: Normal Inspection, NORMAL PULSES, Neurovascularly Intact, Capillary Refill < 2 s Neurological: Positive for: GCS=15, CN II-XII Intact Skin: Positive for: Warm, Dry, Normal Color Psychiatric: Positive for: Alert, Oriented x 3, Normal Insight, Normal Concentration - Medications Active Medications: Active Medications Generic Name Dose Route Start Last Admin Trade Name Freq PRN Reason Stop Dose Admin Acetaminophen 650 mg 12/18/17 18:04 Tylenol 650 Mg Supp NM Q4 PRN Fever >100.4 F Albumin Human 25 gm 12/19/17 18:15 12/20/17 13:27 Albumin Human 25% (12.5 Gm/50 Ml) IV 12/21/17 00:16 25 gm Q6H FESTUS Administration Albuterol/Ipratropium 3 ml 12/16/17 12:03 12/18/17 20:12 Duoneb 3 Mg/0.5 Mg (3 Ml) Ud INH 3 ml RQ4 PRN Administration Shortness of Breath Dextrose 0 ml 12/16/17 12:08 Dextrose 50% Inj IV STAT PRN Hypoglycemia Protocol Protocol Dextrose 15 gm 12/16/17 12:08 Glutose 15 PO ONCE PRN Hypoglycemia Protocol Protocol Glucagon 1 mg 12/16/17 12:08 Glucagen Diagnostic Kit IM STAT PRN Hypoglycemia Protocol Protocol Heparin Sodium (Porcine) 5,000 units 12/20/17 06:00 12/20/17 05:43 Heparin SC 5,000 units Q8 FESTUS Administration Hydromorphone HCl 0.5 mg 12/17/17 09:53 12/18/17 13:04 Dilaudid IVP 0.5 mg Q4H PRN Administration Pain, severe (8-10) Pantoprazole Sodium 80 mg/ 100 mls @ 10 mls/hr 12/16/17 09:35 12/20/17 13:37 Sodium Chloride IV Not Given .Q10H FESTUS 8 MG/HR Dextrose 1,000 mls @ 0 mls/hr 12/16/17 12:08 Dextrose 5% In Water 1000 Ml IV .Q0M PRN Hypoglycemia Protocol Protocol Per Protocol Meropenem 500 mg/ Sodium 100 mls @ 100 mls/hr 12/18/17 10:00 12/20/17 13:25 Chloride IVPB 100 mls/hr Q12 FESTUS Administration Protocol BUPIVACAINE 0.125%/0.9% NACL 600 mls @ 4 mls/hr 12/18/17 16:00 12/18/17 18:20 Bupivacaine-Ns 0.125% On-Q [employer] IJ 06/19/18 21:59 Not Given ONCE ONE Sodium Bicarbonate 150 meq/ 1,150 mls @ 80 mls/hr 12/19/17 09:30 12/19/17 23: 45 Dextrose IV Not Given .[id number] FESTUS Amino Acids 1,000 mls @ 84 mls/hr 12/20/17 06:02 12/20/17 06:21 Clinimix 4.25/5 % "E" (1000 Ml) IV 12/20/17 17:59 84 mls/hr .[id number] FESTUS Administration Fentanyl Citrate 2,500 mcg/ 250 mls @ 21.31 mls/hr 12/19/17 22:30 12/20/17 10 :50 Sodium Chloride IV Not Given .[id number] FESTUS Protocol 2 MCG/KG/HR Multivitamins/Vitamin C 10 ml/ 1,010 mls @ 84 mls/hr 12/20/17 18:00 Amino Acids IV 12/21/17 06:00 .[id number] FESTUS Amino Acids 1,000 mls @ 84 mls/hr 12/21/17 06:30 Clinimix 4.25/5 % "E" (1000 Ml) IV 12/21/17 18:24 .[id number] ONE Insulin Human Regular 0 unit 12/19/17 00:00 12/20/17 13:00 Novolin R SC Not Given Q6 FESTUS Protocol Ondansetron HCl 4 mg 12/18/17 18:03 Zofran Inj IVP Q4 PRN Nausea/Vomiting - Patient Studies Lab Studies: Microbiology Studies 12/17/17 16:00 Blood Culture - Preliminary Blood-Venous NO GROWTH AFTER 48 HOURS 12/17/17 16:40 Blood Culture - Preliminary Blood-Venous NO GROWTH AFTER 48 HOURS Lab Studies 12/20/17 12/20/17 12/20/17 Range/Units 11:52 09:30 07:46 WBC 4.6 L (4.8-10.8) K/uL RBC 2.83 L (3.80-5.20) Mil/uL Hgb 8.1 L (11.0-16.0) g/dL Hct 24.3 L (34.0-47.0) % MCV 85.9 (81.0-99.0) fL MCH 28.6 (27.0-31.0) pg MCHC 33.3 (33.0-37.0) g/dL RDW 14.1 (11.5-14.5) % Plt Count 132 (130-400) K/uL MPV 9.6 (7.2-11.7) fL Neut % (Auto) (50.0-75.0) % Lymph % (Auto) (20.0-40.0) % [place] % (Auto) (0.0-10.0) % Eos % (Auto) (0.0-4.0) % Baso % (Auto) (0.0-2.0) % Neut # (Auto) (1.8-7.0) K/uL Lymph # (Auto) (1.0-4.3) K/uL [place] # (Auto) (0.0-0.8) K/uL Eos # (Auto) (0.0-0.7) K/uL Baso # (Auto) (0.0-0.2) K/uL Puncture Site pCO2 (35-45) mm/Hg pO2 (80-100) mm/Hg HCO3 (21-28) mmol/L ABG pH (7.35-7.45) ABG Total CO2 (22-28) mmol/L ABG O2 Saturation (95-98) % ABG Base Excess (-2.0-3.0) mmol/L ABG Hemoglobin (11.7-17.4) g/dL ABG Carboxyhemoglobin (0.5-1.5) % POC ABG HHb (Measured) (0.0-5.0) % ABG Methemoglobin (0.0-3.0) % Richard Test A-a O2 Difference mm/Hg Respiratory Index Hgb O2 Saturation (95.0-98.0) % Vent Mode Mechanical Rate FiO2 % Tidal Volume PEEP Sodium (132-148) mmol/L Potassium (3.6-5.2) mmol/L Chloride (98-107) mmol/L Carbon Dioxide (22-30) mmol/L Anion Gap (10-20) BUN (7-17) mg/dL Creatinine (0.7-1.2) mg/dL Est GFR ( Amer) Est GFR (Non-Af Amer) POC Glucose (mg/dL) 109 (65-110) mg/dL Random Glucose (65-105) mg/dL Calcium (8.6-10.4) mg/dl Phosphorus (2.5-4.5) mg/dL Magnesium (1.6-2.3) mg/dL Total Bilirubin (0.2-1.3) mg/dL AST (14-36) U/L ALT (9-52) U/L Alkaline Phosphatase (38-126) U/L Total Protein (6.3-8.3) g/dL Albumin (3.5-5.0) g/dL Globulin (2.2-3.9) gm/dL Albumin/Globulin Ratio (1.0-2.1) Blood Type O POSITIVE Antibody Screen Negative 12/20/17 12/20/17 12/20/17 Range/Units 06:30 06:26 06:11 WBC 5.2 (4.8-10.8) K/uL RBC 2.93 L (3.80-5.20) Mil/uL Hgb 8.5 L D (11.0-16.0) g/dL Hct 25.1 L (34.0-47.0) % MCV 85.5 D (81.0-99.0) fL MCH 28.8 (27.0-31.0) pg MCHC 33.7 (33.0-37.0) g/dL RDW 14.5 (11.5-14.5) % Plt Count 137 (130-400) K/uL MPV 10.9 (7.2-11.7) fL Neut % (Auto) 77.1 H (50.0-75.0) % Lymph % (Auto) 11.7 L (20.0-40.0) % [place] % (Auto) 10.7 H (0.0-10.0) % Eos % (Auto) 0.2 (0.0-4.0) % Baso % (Auto) 0.3 (0.0-2.0) % Neut # (Auto) 4.0 (1.8-7.0) K/uL Lymph # (Auto) 0.6 L (1.0-4.3) K/uL [place] # (Auto) 0.6 (0.0-0.8) K/uL Eos # (Auto) 0.0 (0.0-0.7) K/uL Baso # (Auto) 0.0 (0.0-0.2) K/uL Puncture Site pCO2 (35-45) mm/Hg pO2 (80-100) mm/Hg HCO3 (21-28) mmol/L ABG pH (7.35-7.45) ABG Total CO2 (22-28) mmol/L ABG O2 Saturation (95-98) % ABG Base Excess (-2.0-3.0) mmol/L ABG Hemoglobin (11.7-17.4) g/dL ABG Carboxyhemoglobin (0.5-1.5) % POC ABG HHb (Measured) (0.0-5.0) % ABG Methemoglobin (0.0-3.0) % Richard Test A-a O2 Difference mm/Hg Respiratory Index Hgb O2 Saturation (95.0-98.0) % Vent Mode Mechanical Rate FiO2 % Tidal Volume PEEP Sodium 143 (132-148) mmol/L Potassium 4.2 (3.6-5.2) mmol/L Chloride 106 (98-107) mmol/L Carbon Dioxide 21 L (22-30) mmol/L Anion Gap 20 (10-20) BUN 80 H (7-17) mg/dL Creatinine 6.8 H (0.7-1.2) mg/dL Est GFR ( Amer) 7 Est GFR (Non-Af Amer) 6 POC Glucose (mg/dL) 116 H (65-110) mg/dL Random Glucose 108 H (65-105) mg/dL Calcium 6.1 L (8.6-10.4) mg/dl Phosphorus 4.2 (2.5-4.5) mg/dL Magnesium 2.2 (1.6-2.3) mg/dL Total Bilirubin 0.7 (0.2-1.3) mg/dL AST 58 H D (14-36) U/L ALT 38 (9-52) U/L Alkaline Phosphatase 30 L (38-126) U/L Total Protein 5.5 L (6.3-8.3) g/dL Albumin 3.2 L D (3.5-5.0) g/dL Globulin 2.2 (2.2-3.9) gm/dL Albumin/Globulin Ratio 1.4 (1.0-2.1) Blood Type Antibody Screen 12/20/17 12/19/17 12/19/17 Range/Units 05:00 23:29 18:20 WBC (4.8-10.8) K/uL RBC (3.80-5.20) Mil/uL Hgb (11.0-16.0) g/dL Hct (34.0-47.0) % MCV (81.0-99.0) fL MCH (27.0-31.0) pg MCHC (33.0-37.0) g/dL RDW (11.5-14.5) % Plt Count (130-400) K/uL MPV (7.2-11.7) fL Neut % (Auto) (50.0-75.0) % Lymph % (Auto) (20.0-40.0) % [place] % (Auto) (0.0-10.0) % Eos % (Auto) (0.0-4.0) % Baso % (Auto) (0.0-2.0) % Neut # (Auto) (1.8-7.0) K/uL Lymph # (Auto) (1.0-4.3) K/uL [place] # (Auto) (0.0-0.8) K/uL Eos # (Auto) (0.0-0.7) K/uL Baso # (Auto) (0.0-0.2) K/uL Puncture Site Rr pCO2 37 (35-45) mm/Hg pO2 85 (80-100) mm/Hg HCO3 19.9 L (21-28) mmol/L ABG pH 7.32 L (7.35-7.45) ABG Total CO2 20.2 L (22-28) mmol/L ABG O2 Saturation 97.9 (95-98) % ABG Base Excess -6.4 L (-2.0-3.0) mmol/L ABG Hemoglobin 10.2 L (11.7-17.4) g/dL ABG Carboxyhemoglobin 1.5 (0.5-1.5) % POC ABG HHb (Measured) 2.0 (0.0-5.0) % ABG Methemoglobin 1.4 (0.0-3.0) % Richard Test Pos A-a O2 Difference 297.0 mm/Hg Respiratory Index 3.5 Hgb O2 Saturation 95.1 (95.0-98.0) % Vent Mode Prvc Mechanical Rate 14 FiO2 60.0 % Tidal Volume 500 PEEP 5 Sodium 142 (132-148) mmol/L Potassium 4.1 (3.6-5.2) mmol/L Chloride 108 H (98-107) mmol/L Carbon Dioxide 19 L (22-30) mmol/L Anion Gap 20 (10-20) BUN 74 H (7-17) mg/dL Creatinine 5.8 H (0.7-1.2) mg/dL Est GFR ( Amer) 9 Est GFR (Non-Af Amer) 7 POC Glucose (mg/dL) 145 H (65-110) mg/dL Random Glucose 126 H (65-105) mg/dL Calcium 5.6 L* (8.6-10.4) mg/dl Phosphorus (2.5-4.5) mg/dL Magnesium (1.6-2.3) mg/dL Total Bilirubin 0.6 (0.2-1.3) mg/dL AST 81 H D (14-36) U/L ALT 62 H D (9-52) U/L Alkaline Phosphatase 35 L D (38-126) U/L Total Protein 5.1 L (6.3-8.3) g/dL Albumin 2.6 L (3.5-5.0) g/dL Globulin 2.5 (2.2-3.9) gm/dL Albumin/Globulin Ratio 1.1 (1.0-2.1) Blood Type Antibody Screen 12/19/17 Range/Units 17:28 WBC (4.8-10.8) K/uL RBC (3.80-5.20) Mil/uL Hgb (11.0-16.0) g/dL Hct (34.0-47.0) % MCV (81.0-99.0) fL MCH (27.0-31.0) pg MCHC (33.0-37.0) g/dL RDW (11.5-14.5) % Plt Count (130-400) K/uL MPV (7.2-11.7) fL Neut % (Auto) (50.0-75.0) % Lymph % (Auto) (20.0-40.0) % [place] % (Auto) (0.0-10.0) % Eos % (Auto) (0.0-4.0) % Baso % (Auto) (0.0-2.0) % Neut # (Auto) (1.8-7.0) K/uL Lymph # (Auto) (1.0-4.3) K/uL [place] # (Auto) (0.0-0.8) K/uL Eos # (Auto) (0.0-0.7) K/uL Baso # (Auto) (0.0-0.2) K/uL Puncture Site pCO2 (35-45) mm/Hg pO2 (80-100) mm/Hg HCO3 (21-28) mmol/L ABG pH (7.35-7.45) ABG Total CO2 (22-28) mmol/L ABG O2 Saturation (95-98) % ABG Base Excess (-2.0-3.0) mmol/L ABG Hemoglobin (11.7-17.4) g/dL ABG Carboxyhemoglobin (0.5-1.5) % POC ABG HHb (Measured) (0.0-5.0) % ABG Methemoglobin (0.0-3.0) % Richard Test A-a O2 Difference mm/Hg Respiratory Index Hgb O2 Saturation (95.0-98.0) % Vent Mode Mechanical Rate FiO2 % Tidal Volume PEEP Sodium (132-148) mmol/L Potassium (3.6-5.2) mmol/L Chloride (98-107) mmol/L Carbon Dioxide (22-30) mmol/L Anion Gap (10-20) BUN (7-17) mg/dL Creatinine (0.7-1.2) mg/dL Est GFR ( Amer) Est GFR (Non-Af Amer) POC Glucose (mg/dL) 109 (65-110) mg/dL Random Glucose (65-105) mg/dL Calcium (8.6-10.4) mg/dl Phosphorus (2.5-4.5) mg/dL Magnesium (1.6-2.3) mg/dL Total Bilirubin (0.2-1.3) mg/dL AST (14-36) U/L ALT (9-52) U/L Alkaline Phosphatase (38-126) U/L Total Protein (6.3-8.3) g/dL Albumin (3.5-5.0) g/dL Globulin (2.2-3.9) gm/dL Albumin/Globulin Ratio (1.0-2.1) Blood Type Antibody Screen Laboratory Results - last 24 hr 12/19/17 12/19/17 12/19/17 17:28 18:20 23:29 WBC RBC Hgb Hct MCV MCH MCHC RDW Plt Count MPV Neut % (Auto) Lymph % (Auto) [place] % (Auto) Eos % (Auto) Baso % (Auto) Neut # (Auto) Lymph # (Auto) [place] # (Auto) Eos # (Auto) Baso # (Auto) Puncture Site pCO2 pO2 HCO3 ABG pH ABG Total CO2 ABG O2 Saturation ABG Base Excess ABG Hemoglobin ABG Carboxyhemoglobin POC ABG HHb (Measured) ABG Methemoglobin Richard Test A-a O2 Difference Respiratory Index Hgb O2 Saturation Vent Mode Mechanical Rate FiO2 Tidal Volume PEEP Sodium 142 Potassium 4.1 Chloride 108 H Carbon Dioxide 19 L Anion Gap 20 BUN 74 H Creatinine 5.8 H Est GFR ( Amer) 9 Est GFR (Non-Af Amer) 7 POC Glucose (mg/dL) 109 145 H Random Glucose 126 H Calcium 5.6 L* Phosphorus Magnesium Total Bilirubin 0.6 AST 81 H D ALT 62 H D Alkaline Phosphatase 35 L D Total Protein 5.1 L Albumin 2.6 L Globulin 2.5 Albumin/Globulin Ratio 1.1 Blood Type Antibody Screen 12/20/17 12/20/17 12/20/17 05:00 06:11 06:26 WBC 5.2 RBC 2.93 L Hgb 8.5 L D Hct 25.1 L MCV 85.5 D MCH 28.8 MCHC 33.7 RDW 14.5 Plt Count 137 MPV 10.9 Neut % (Auto) 77.1 H Lymph % (Auto) 11.7 L [place] % (Auto) 10.7 H Eos % (Auto) 0.2 Baso % (Auto) 0.3 Neut # (Auto) 4.0 Lymph # (Auto) 0.6 L [place] # (Auto) 0.6 Eos # (Auto) 0.0 Baso # (Auto) 0.0 Puncture Site Rr pCO2 37 pO2 85 HCO3 19.9 L ABG pH 7.32 L ABG Total CO2 20.2 L ABG O2 Saturation 97.9 ABG Base Excess -6.4 L ABG Hemoglobin 10.2 L ABG Carboxyhemoglobin 1.5 POC ABG HHb (Measured) 2.0 ABG Methemoglobin 1.4 Richard Test Pos A-a O2 Difference 297.0 Respiratory Index 3.5 Hgb O2 Saturation 95.1 Vent Mode Prvc Mechanical Rate 14 FiO2 60.0 Tidal Volume 500 PEEP 5 Sodium Potassium Chloride Carbon Dioxide Anion Gap BUN Creatinine Est GFR ( Amer) Est GFR (Non-Af Amer) POC Glucose (mg/dL) 116 H Random Glucose Calcium Phosphorus Magnesium Total Bilirubin AST ALT Alkaline Phosphatase Total Protein Albumin Globulin Albumin/Globulin Ratio Blood Type Antibody Screen 12/20/17 12/20/17 12/20/17 06:30 07:46 09:30 WBC 4.6 L RBC 2.83 L Hgb 8.1 L Hct 24.3 L MCV 85.9 MCH 28.6 MCHC 33.3 RDW 14.1 Plt Count 132 MPV 9.6 Neut % (Auto) Lymph % (Auto) [place] % (Auto) Eos % (Auto) Baso % (Auto) Neut # (Auto) Lymph # (Auto) [place] # (Auto) Eos # (Auto) Baso # (Auto) Puncture Site pCO2 pO2 HCO3 ABG pH ABG Total CO2 ABG O2 Saturation ABG Base Excess ABG Hemoglobin ABG Carboxyhemoglobin POC ABG HHb (Measured) ABG Methemoglobin Richard Test A-a O2 Difference Respiratory Index Hgb O2 Saturation Vent Mode Mechanical Rate FiO2 Tidal Volume PEEP Sodium 143 Potassium 4.2 Chloride 106 Carbon Dioxide 21 L Anion Gap 20 BUN 80 H Creatinine 6.8 H Est GFR ( Amer) 7 Est GFR (Non-Af Amer) 6 POC Glucose (mg/dL) Random Glucose 108 H Calcium 6.1 L Phosphorus 4.2 Magnesium 2.2 Total Bilirubin 0.7 AST 58 H D ALT 38 Alkaline Phosphatase 30 L Total Protein 5.5 L Albumin 3.2 L D Globulin 2.2 Albumin/Globulin Ratio 1.4 Blood Type O POSITIVE Antibody Screen Negative 12/20/17 11:52 WBC RBC Hgb Hct MCV MCH MCHC RDW Plt Count MPV Neut % (Auto) Lymph % (Auto) [place] % (Auto) Eos % (Auto) Baso % (Auto) Neut # (Auto) Lymph # (Auto) [place] # (Auto) Eos # (Auto) Baso # (Auto) Puncture Site pCO2 pO2 HCO3 ABG pH ABG Total CO2 ABG O2 Saturation ABG Base Excess ABG Hemoglobin ABG Carboxyhemoglobin POC ABG HHb (Measured) ABG Methemoglobin Richard Test A-a O2 Difference Respiratory Index Hgb O2 Saturation Vent Mode Mechanical Rate FiO2 Tidal Volume PEEP Sodium Potassium Chloride Carbon Dioxide Anion Gap BUN Creatinine Est GFR ( Amer) Est GFR (Non-Af Amer) POC Glucose (mg/dL) 109 Random Glucose Calcium Phosphorus Magnesium Total Bilirubin AST ALT Alkaline Phosphatase Total Protein Albumin Globulin Albumin/Globulin Ratio Blood Type Antibody Screen Fingerstick Blood Sugar Results: 109 Critical Care Progress Note - Nutrition Nutrition: Nutrition Category Date Time Status NPO Diet [DIET] Diets 12/20/17 Dinner Active Assessment/Plan - Assessment and Plan (Free Text) Assessment: This is a 77yo female with history of hypertension, COPD, breast cancer s/p lumpectomy that presented to same day 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 During the procedure, patient experienced a significant amount of bleeding which was treated with a combination of clipping , electrocautery and epinephrine. Bleeding was significantly reduced however patient was subsequently admitted to ICU for close observation. Patient was admitted to ICU due to SBP 220/140s initially on cardene drip x 1 - 2 hours- now normotensive; patient now in ATN with CRE of 6.8. Returned to OR 12/18/17 due to increasing free air noted on repeat CT scan ; s/p ex lap primary repair of duodenal perforation, jourdan patch. Omentectomy. Right shiley catheter placed - 12/20. Dialysis today and tomorrow. 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 Celi - Previous hemorrhage - stabilized with a combination of clipping, electrocautery and epinephrine. - Started on PPI drip, IVF - Zosyn as per GI switched to Merro 500MG Q12 (renal dose) 12/18/17 - Ct chest, abdomen, pelvis 2/2 abdominal pain and guarding on exam: Mild increase in the extent of pneumoperitoneum. Increasing ascites. Extensive gas adjacent to 2nd duodenum and nasim hepatis. Status post cholecystectomy. Nasogastric tube. Fluid in retroperitoneum and gas in perinephric space on right side. Cannot rule out pancreatitis. Please correlate. Trace right pleural effusion. No pulmonary infiltrate. - Upper GI series - Free air noted - As per surgery patient is for OR due to increasing free air ; s/p ex lap primary repair of duodenal perforation, jourdan patch. Omentectomy. 12/18 A: Pancreatic nodule - Questionable 9 mm rounded fluid density mass in the pancreatic body. This was not clearly appreciated on prior CT examination of 12/16/2017. Further evaluation is advised when clinically feasible with multiphasic contrast- enhanced CT. A: Transaminitis, Elevated T. Bili - downtrending - Viral hepatitis - negative - Abominal US - Diffuse increased echogenicity in the liver may reflect hepatic steatosis however parenchymal infectious/ inflammatory etiologies cannot be entirely excluded. Clinical and laboratory correlation is advised. Mild perihepatic ascites. Endo: A: Thyroid Nodule - There is a 1.9 cm mass in the lower pole of the left thyroid lobe. - Correlate with thyroid ultrasound examination. A: Hypocalcemia - Repleting IV A: IGT - HgA1c 5.9 Renal: A: ARF - 2/2 ATN - Avoid nephrotoxic drugs - Abdominal US- no sign of renal obstruction - Changed zosyn to Merro renally dosed - Inserted bruce - Right Shiley catheter inserted 12/20 - Scheduled for dialysis today and tomorrow ID: A: Bandemia - resolving ID Consulted - Dr. Quinonez - Afebrile, vitals stable, no leukocytosis, no source of infection - Patient was prince-cultured 12/17/17 - all negative - Bandemia increasing- 61, Procal - 12.04, lactate 2.4--> 1.7 - Changed zosyn to Meropenem renally dosed - will add linezolid (GPC coverage) and micafungin (fungal coverage) -- gross abdominal spillage, de-escalate as per intra-op cultures Heme/ Onc: A: Anemia - Hemoglobin baseline 13-14 - CT chest, ab, pelvis - no evidence of internal hemorrhage - Currently 8.1, will transfuse 1 unit - Continue to monitor A: Hx breast cancer s/p lumpectomy Prophylaxis - Protonix Drip - SCDs, VTE c/i post op / concern for bleeding - Right PICC line, Right shiley cath inserted 12/20 - Currently on PPN DW Estefania Sosa DO, PGY-1 <Milton Garcia - Last Filed: 12/20/17 18:55> CCU Subjective - Physician Review Critical Care Time Spent (in minutes): 35 CCU Objective - Vital Signs / Intake & Output Vital Signs (Last 4 hours): Vital Signs Temp Pulse Pulse Resp BP BP Pulse Ox 12/20/17 18:45 93/62 L 12/20/17 18:30 107/51 L 12/20/17 18:25 106 H 107/51 L 100 12/20/17 18:15 95/58 L 12/20/17 18:10 106 H 95/58 L 100 12/20/17 18:07 111 H 19 105/55 L 12/20/17 18:00 106 H 113/48 L 100 12/20/17 17:55 110 H 113/48 L 100 12/20/17 17:45 106/44 L 12/20/17 17:40 108 H 106/44 L 100 12/20/17 17:30 111/54 L 12/20/17 17:25 111 H 111/54 L 96 12/20/17 17:20 98.9 F 111 H 20 118/61 96 12/20/17 17:15 113/69 12/20/17 17:10 112 H 113/69 96 12/20/17 17:02 113 H 126/51 L 95 12/20/17 17:00 98.9 F 113 H 111 H 19 126/51 L 95 12/20/17 16:55 98.9 F 111 H 19 105/55 L 12/20/17 16:42 114 H 105/55 L 95 12/20/17 16:20 98.7 F 110 H 18 122/50 L 12/20/17 16:12 111 H 122/50 L 96 12/20/17 16:00 111 H 97 12/20/17 15:41 116 H 105/50 L 97 12/20/17 15:14 98.7 F 114 H 27 H 105/73 12/20/17 15:12 116 H 105/73 86 L 12/20/17 15:00 120 H 91 L Intake and Output (Last 8hrs): Intake & Output 12/20/17 12/20/17 12/20/17 06:59 14:59 22:59 Intake Total 1577.6 823.5 740 Output Total 320 385 Balance 1257.6 438.5 740 Weight 235 lb 235 lb 7.612 oz Intake: Intake, IV Amount 1477.6 773.5 90 Left Antecubital 336 Left Foot 85.6 53.5 Left Hand 672 84 Right Antecubital 80 10 Right PICC 10 90 Rt AC 640 80 left AC y port 40 y port left foot 160 Blood Product 100 50 650 Red Blood Cells Cpd As1 0 325 Lr Unit [id number] Output: Drainage 180 180 KORI 1 60 60 KORI 2 120 120 Urine 140 205 Urethral (Bruce) 140 205 Other: # Bowel Movements 1 - Medications Active Medications: Active Medications Generic Name Dose Route Start Last Admin Trade Name Freq PRN Reason Stop Dose Admin Acetaminophen 650 mg 12/18/17 18:04 Tylenol 650 Mg Supp NM Q4 PRN Fever >100.4 F Albumin Human 25 gm 12/19/17 18:15 12/20/17 18:22 Albumin Human 25% (12.5 Gm/50 Ml) IV 12/21/17 00:16 25 gm Q6H FESTUS Administration Albuterol/Ipratropium 3 ml 12/16/17 12:03 12/18/17 20:12 Duoneb 3 Mg/0.5 Mg (3 Ml) Ud INH 3 ml RQ4 PRN Administration Shortness of Breath Dextrose 0 ml 12/16/17 12:08 Dextrose 50% Inj IV STAT PRN Hypoglycemia Protocol Protocol Dextrose 15 gm 12/16/17 12:08 Glutose 15 PO ONCE PRN Hypoglycemia Protocol Protocol Glucagon 1 mg 12/16/17 12:08 Glucagen Diagnostic Kit IM STAT PRN Hypoglycemia Protocol Protocol Heparin Sodium (Porcine) 5,000 units 12/20/17 06:00 12/20/17 14:30 Heparin SC Not Given Q8 FESTUS Hydromorphone HCl 0.5 mg 12/17/17 09:53 12/18/17 13:04 Dilaudid IVP 0.5 mg Q4H PRN Administration Pain, severe (8-10) Pantoprazole Sodium 80 mg/ 100 mls @ 10 mls/hr 12/16/17 09:35 12/20/17 17:49 Sodium Chloride IV 10 mls/hr .Q10H FESTUS Administration 8 MG/HR Dextrose 1,000 mls @ 0 mls/hr 12/16/17 12:08 Dextrose 5% In Water 1000 Ml IV .Q0M PRN Hypoglycemia Protocol Protocol Per Protocol Meropenem 500 mg/ Sodium 100 mls @ 100 mls/hr 12/18/17 10:00 12/20/17 13:25 Chloride IVPB 100 mls/hr Q12 FESTUS Administration Protocol BUPIVACAINE 0.125%/0.9% NACL 600 mls @ 4 mls/hr 12/18/17 16:00 12/18/17 18:20 Bupivacaine-Ns 0.125% On-Q [employer] IJ 12/24/17 21:59 Not Given ONCE ONE Sodium Bicarbonate 150 meq/ 1,150 mls @ 80 mls/hr 12/19/17 09:30 12/20/17 18: 03 Dextrose IV 80 mls/hr .[id number] FESTUS Administration Fentanyl Citrate 2,500 mcg/ 250 mls @ 21.31 mls/hr 12/19/17 22:30 12/20/17 10 :50 Sodium Chloride IV Not Given .[id number] FESTUS Protocol 2 MCG/KG/HR Multivitamins/Vitamin C 10 ml/ 1,010 mls @ 84 mls/hr 12/20/17 18:00 12/20/17 17:50 Amino Acids IV 12/21/17 06:00 84 mls/hr .[id number] FESTUS Administration Amino Acids 1,000 mls @ 84 mls/hr 12/21/17 06:30 Clinimix 4.25/5 % "E" (1000 Ml) IV 12/21/17 18:24 .[id number] ONE Micafungin Sodium 100 mg/ 100 mls @ 100 mls/hr 12/21/17 10:00 Sodium Chloride IV Q24H FESTUS Protocol Linezolid 600 mg in 300 mls @ 200 mls/hr 12/20/17 22:00 Zyvox 600mg/300ml D5w IVPB Q12 [facility] Protocol Insulin Human Regular 0 unit 12/19/17 00:00 12/20/17 18:07 Novolin R SC Not Given Q6 [facility] Protocol Ondansetron HCl 4 mg 12/18/17 18:03 Zofran Inj IVP Q4 PRN Nausea/Vomiting - Patient Studies Lab Studies: Microbiology Studies 12/17/17 16:00 Blood Culture - Preliminary Blood-Venous NO GROWTH AFTER 3 DAYS 12/17/17 16:40 Blood Culture - Preliminary Blood-Venous NO GROWTH AFTER 3 DAYS Lab Studies 12/20/17 12/20/17 12/20/17 Range/Units 17:46 11:52 09:30 WBC (4.8-10.8) K/uL RBC (3.80-5.20) Mil/uL Hgb (11.0-16.0) g/dL Hct (34.0-47.0) % MCV (81.0-99.0) fL MCH (27.0-31.0) pg MCHC (33.0-37.0) g/dL RDW (11.5-14.5) % Plt Count (130-400) K/uL MPV (7.2-11.7) fL Neut % (Auto) (50.0-75.0) % Lymph % (Auto) (20.0-40.0) % [place] % (Auto) (0.0-10.0) % Eos % (Auto) (0.0-4.0) % Baso % (Auto) (0.0-2.0) % Neut # (Auto) (1.8-7.0) K/uL Lymph # (Auto) (1.0-4.3) K/uL [place] # (Auto) (0.0-0.8) K/uL Eos # (Auto) (0.0-0.7) K/uL Baso # (Auto) (0.0-0.2) K/uL Puncture Site pCO2 (35-45) mm/Hg pO2 (80-100) mm/Hg HCO3 (21-28) mmol/L ABG pH (7.35-7.45) ABG Total CO2 (22-28) mmol/L ABG O2 Saturation (95-98) % ABG Base Excess (-2.0-3.0) mmol/L ABG Hemoglobin (11.7-17.4) g/dL ABG Carboxyhemoglobin (0.5-1.5) % POC ABG HHb (Measured) (0.0-5.0) % ABG Methemoglobin (0.0-3.0) % Richard Test A-a O2 Difference mm/Hg Respiratory Index Hgb O2 Saturation (95.0-98.0) % Vent Mode Mechanical Rate FiO2 % Tidal Volume PEEP Sodium (132-148) mmol/L Potassium (3.6-5.2) mmol/L Chloride (98-107) mmol/L Carbon Dioxide (22-30) mmol/L Anion Gap (10-20) BUN (7-17) mg/dL Creatinine (0.7-1.2) mg/dL Est GFR ( Amer) Est GFR (Non-Af Amer) POC Glucose (mg/dL) 109 109 (65-110) mg/dL Random Glucose (65-105) mg/dL Calcium (8.6-10.4) mg/dl Phosphorus (2.5-4.5) mg/dL Magnesium (1.6-2.3) mg/dL Total Bilirubin (0.2-1.3) mg/dL AST (14-36) U/L ALT (9-52) U/L Alkaline Phosphatase (38-126) U/L Total Protein (6.3-8.3) g/dL Albumin (3.5-5.0) g/dL Globulin (2.2-3.9) gm/dL Albumin/Globulin Ratio (1.0-2.1) Blood Type O POSITIVE Antibody Screen Negative 12/20/17 12/20/17 12/20/17 Range/Units 07:46 06:30 06:26 WBC 4.6 L 5.2 (4.8-10.8) K/uL RBC 2.83 L 2.93 L (3.80-5.20) Mil/uL Hgb 8.1 L 8.5 L D (11.0-16.0) g/dL Hct 24.3 L 25.1 L (34.0-47.0) % MCV 85.9 85.5 D (81.0-99.0) fL MCH 28.6 28.8 (27.0-31.0) pg MCHC 33.3 33.7 (33.0-37.0) g/dL RDW 14.1 14.5 (11.5-14.5) % Plt Count 132 137 (130-400) K/uL MPV 9.6 10.9 (7.2-11.7) fL Neut % (Auto) 77.1 H (50.0-75.0) % Lymph % (Auto) 11.7 L (20.0-40.0) % [place] % (Auto) 10.7 H (0.0-10.0) % Eos % (Auto) 0.2 (0.0-4.0) % Baso % (Auto) 0.3 (0.0-2.0) % Neut # (Auto) 4.0 (1.8-7.0) K/uL Lymph # (Auto) 0.6 L (1.0-4.3) K/uL [place] # (Auto) 0.6 (0.0-0.8) K/uL Eos # (Auto) 0.0 (0.0-0.7) K/uL Baso # (Auto) 0.0 (0.0-0.2) K/uL Puncture Site pCO2 (35-45) mm/Hg pO2 (80-100) mm/Hg HCO3 (21-28) mmol/L ABG pH (7.35-7.45) ABG Total CO2 (22-28) mmol/L ABG O2 Saturation (95-98) % ABG Base Excess (-2.0-3.0) mmol/L ABG Hemoglobin (11.7-17.4) g/dL ABG Carboxyhemoglobin (0.5-1.5) % POC ABG HHb (Measured) (0.0-5.0) % ABG Methemoglobin (0.0-3.0) % Richard Test A-a O2 Difference mm/Hg Respiratory Index Hgb O2 Saturation (95.0-98.0) % Vent Mode Mechanical Rate FiO2 % Tidal Volume PEEP Sodium 143 (132-148) mmol/L Potassium 4.2 (3.6-5.2) mmol/L Chloride 106 (98-107) mmol/L Carbon Dioxide 21 L (22-30) mmol/L Anion Gap 20 (10-20) BUN 80 H (7-17) mg/dL Creatinine 6.8 H (0.7-1.2) mg/dL Est GFR ( Amer) 7 Est GFR (Non-Af Amer) 6 POC Glucose (mg/dL) (65-110) mg/dL Random Glucose 108 H (65-105) mg/dL Calcium 6.1 L (8.6-10.4) mg/dl Phosphorus 4.2 (2.5-4.5) mg/dL Magnesium 2.2 (1.6-2.3) mg/dL Total Bilirubin 0.7 (0.2-1.3) mg/dL AST 58 H D (14-36) U/L ALT 38 (9-52) U/L Alkaline Phosphatase 30 L (38-126) U/L Total Protein 5.5 L (6.3-8.3) g/dL Albumin 3.2 L D (3.5-5.0) g/dL Globulin 2.2 (2.2-3.9) gm/dL Albumin/Globulin Ratio 1.4 (1.0-2.1) Blood Type Antibody Screen 12/20/17 12/20/17 12/19/17 Range/Units 06:11 05:00 23:29 WBC (4.8-10.8) K/uL RBC (3.80-5.20) Mil/uL Hgb (11.0-16.0) g/dL Hct (34.0-47.0) % MCV (81.0-99.0) fL MCH (27.0-31.0) pg MCHC (33.0-37.0) g/dL RDW (11.5-14.5) % Plt Count (130-400) K/uL MPV (7.2-11.7) fL Neut % (Auto) (50.0-75.0) % Lymph % (Auto) (20.0-40.0) % [place] % (Auto) (0.0-10.0) % Eos % (Auto) (0.0-4.0) % Baso % (Auto) (0.0-2.0) % Neut # (Auto) (1.8-7.0) K/uL Lymph # (Auto) (1.0-4.3) K/uL [place] # (Auto) (0.0-0.8) K/uL Eos # (Auto) (0.0-0.7) K/uL Baso # (Auto) (0.0-0.2) K/uL Puncture Site Rr pCO2 37 (35-45) mm/Hg pO2 85 (80-100) mm/Hg HCO3 19.9 L (21-28) mmol/L ABG pH 7.32 L (7.35-7.45) ABG Total CO2 20.2 L (22-28) mmol/L ABG O2 Saturation 97.9 (95-98) % ABG Base Excess -6.4 L (-2.0-3.0) mmol/L ABG Hemoglobin 10.2 L (11.7-17.4) g/dL ABG Carboxyhemoglobin 1.5 (0.5-1.5) % POC ABG HHb (Measured) 2.0 (0.0-5.0) % ABG Methemoglobin 1.4 (0.0-3.0) % Richard Test Pos A-a O2 Difference 297.0 mm/Hg Respiratory Index 3.5 Hgb O2 Saturation 95.1 (95.0-98.0) % Vent Mode Prvc Mechanical Rate 14 FiO2 60.0 % Tidal Volume 500 PEEP 5 Sodium (132-148) mmol/L Potassium (3.6-5.2) mmol/L Chloride (98-107) mmol/L Carbon Dioxide (22-30) mmol/L Anion Gap (10-20) BUN (7-17) mg/dL Creatinine (0.7-1.2) mg/dL Est GFR ( Amer) Est GFR (Non-Af Amer) POC Glucose (mg/dL) 116 H 145 H (65-110) mg/dL Random Glucose (65-105) mg/dL Calcium (8.6-10.4) mg/dl Phosphorus (2.5-4.5) mg/dL Magnesium (1.6-2.3) mg/dL Total Bilirubin (0.2-1.3) mg/dL AST (14-36) U/L ALT (9-52) U/L Alkaline Phosphatase (38-126) U/L Total Protein (6.3-8.3) g/dL Albumin (3.5-5.0) g/dL Globulin (2.2-3.9) gm/dL Albumin/Globulin Ratio (1.0-2.1) Blood Type Antibody Screen 12/19/17 Range/Units 18:20 WBC (4.8-10.8) K/uL RBC (3.80-5.20) Mil/uL Hgb (11.0-16.0) g/dL Hct (34.0-47.0) % MCV (81.0-99.0) fL MCH (27.0-31.0) pg MCHC (33.0-37.0) g/dL RDW (11.5-14.5) % Plt Count (130-400) K/uL MPV (7.2-11.7) fL Neut % (Auto) (50.0-75.0) % Lymph % (Auto) (20.0-40.0) % [place] % (Auto) (0.0-10.0) % Eos % (Auto) (0.0-4.0) % Baso % (Auto) (0.0-2.0) % Neut # (Auto) (1.8-7.0) K/uL Lymph # (Auto) (1.0-4.3) K/uL [place] # (Auto) (0.0-0.8) K/uL Eos # (Auto) (0.0-0.7) K/uL Baso # (Auto) (0.0-0.2) K/uL Puncture Site pCO2 (35-45) mm/Hg pO2 (80-100) mm/Hg HCO3 (21-28) mmol/L ABG pH (7.35-7.45) ABG Total CO2 (22-28) mmol/L ABG O2 Saturation (95-98) % ABG Base Excess (-2.0-3.0) mmol/L ABG Hemoglobin (11.7-17.4) g/dL ABG Carboxyhemoglobin (0.5-1.5) % POC ABG HHb (Measured) (0.0-5.0) % ABG Methemoglobin (0.0-3.0) % Richard Test A-a O2 Difference mm/Hg Respiratory Index Hgb O2 Saturation (95.0-98.0) % Vent Mode Mechanical Rate FiO2 % Tidal Volume PEEP Sodium 142 (132-148) mmol/L Potassium 4.1 (3.6-5.2) mmol/L Chloride 108 H (98-107) mmol/L Carbon Dioxide 19 L (22-30) mmol/L Anion Gap 20 (10-20) BUN 74 H (7-17) mg/dL Creatinine 5.8 H (0.7-1.2) mg/dL Est GFR ( Amer) 9 Est GFR (Non-Af Amer) 7 POC Glucose (mg/dL) (65-110) mg/dL Random Glucose 126 H (65-105) mg/dL Calcium 5.6 L* (8.6-10.4) mg/dl Phosphorus (2.5-4.5) mg/dL Magnesium (1.6-2.3) mg/dL Total Bilirubin 0.6 (0.2-1.3) mg/dL AST 81 H D (14-36) U/L ALT 62 H D (9-52) U/L Alkaline Phosphatase 35 L D (38-126) U/L Total Protein 5.1 L (6.3-8.3) g/dL Albumin 2.6 L (3.5-5.0) g/dL Globulin 2.5 (2.2-3.9) gm/dL Albumin/Globulin Ratio 1.1 (1.0-2.1) Blood Type Antibody Screen Laboratory Results - last 24 hr 12/19/17 12/19/17 12/20/17 18:20 23:29 05:00 WBC RBC Hgb Hct MCV MCH MCHC RDW Plt Count MPV Neut % (Auto) Lymph % (Auto) [place] % (Auto) Eos % (Auto) Baso % (Auto) Neut # (Auto) Lymph # (Auto) [place] # (Auto) Eos # (Auto) Baso # (Auto) Puncture Site Rr pCO2 37 pO2 85 HCO3 19.9 L ABG pH 7.32 L ABG Total CO2 20.2 L ABG O2 Saturation 97.9 ABG Base Excess -6.4 L ABG Hemoglobin 10.2 L ABG Carboxyhemoglobin 1.5 POC ABG HHb (Measured) 2.0 ABG Methemoglobin 1.4 Richard Test Pos A-a O2 Difference 297.0 Respiratory Index 3.5 Hgb O2 Saturation 95.1 Vent Mode Prvc Mechanical Rate 14 FiO2 60.0 Tidal Volume 500 PEEP 5 Sodium 142 Potassium 4.1 Chloride 108 H Carbon Dioxide 19 L Anion Gap 20 BUN 74 H Creatinine 5.8 H Est GFR ( Amer) 9 Est GFR (Non-Af Amer) 7 POC Glucose (mg/dL) 145 H Random Glucose 126 H Calcium 5.6 L* Phosphorus Magnesium Total Bilirubin 0.6 AST 81 H D ALT 62 H D Alkaline Phosphatase 35 L D Total Protein 5.1 L Albumin 2.6 L Globulin 2.5 Albumin/Globulin Ratio 1.1 Blood Type Antibody Screen 12/20/17 12/20/17 12/20/17 06:11 06:26 06:30 WBC 5.2 RBC 2.93 L Hgb 8.5 L D Hct 25.1 L MCV 85.5 D MCH 28.8 MCHC 33.7 RDW 14.5 Plt Count 137 MPV 10.9 Neut % (Auto) 77.1 H Lymph % (Auto) 11.7 L [place] % (Auto) 10.7 H Eos % (Auto) 0.2 Baso % (Auto) 0.3 Neut # (Auto) 4.0 Lymph # (Auto) 0.6 L [place] # (Auto) 0.6 Eos # (Auto) 0.0 Baso # (Auto) 0.0 Puncture Site pCO2 pO2 HCO3 ABG pH ABG Total CO2 ABG O2 Saturation ABG Base Excess ABG Hemoglobin ABG Carboxyhemoglobin POC ABG HHb (Measured) ABG Methemoglobin Richard Test A-a O2 Difference Respiratory Index Hgb O2 Saturation Vent Mode Mechanical Rate FiO2 Tidal Volume PEEP Sodium 143 Potassium 4.2 Chloride 106 Carbon Dioxide 21 L Anion Gap 20 BUN 80 H Creatinine 6.8 H Est GFR ( Amer) 7 Est GFR (Non-Af Amer) 6 POC Glucose (mg/dL) 116 H Random Glucose 108 H Calcium 6.1 L Phosphorus 4.2 Magnesium 2.2 Total Bilirubin 0.7 AST 58 H D ALT 38 Alkaline Phosphatase 30 L Total Protein 5.5 L Albumin 3.2 L D Globulin 2.2 Albumin/Globulin Ratio 1.4 Blood Type Antibody Screen 12/20/17 12/20/17 12/20/17 07:46 09:30 11:52 WBC 4.6 L RBC 2.83 L Hgb 8.1 L Hct 24.3 L MCV 85.9 MCH 28.6 MCHC 33.3 RDW 14.1 Plt Count 132 MPV 9.6 Neut % (Auto) Lymph % (Auto) [place] % (Auto) Eos % (Auto) Baso % (Auto) Neut # (Auto) Lymph # (Auto) [place] # (Auto) Eos # (Auto) Baso # (Auto) Puncture Site pCO2 pO2 HCO3 ABG pH ABG Total CO2 ABG O2 Saturation ABG Base Excess ABG Hemoglobin ABG Carboxyhemoglobin POC ABG HHb (Measured) ABG Methemoglobin Richard Test A-a O2 Difference Respiratory Index Hgb O2 Saturation Vent Mode Mechanical Rate FiO2 Tidal Volume PEEP Sodium Potassium Chloride Carbon Dioxide Anion Gap BUN Creatinine Est GFR ( Amer) Est GFR (Non-Af Amer) POC Glucose (mg/dL) 109 Random Glucose Calcium Phosphorus Magnesium Total Bilirubin AST ALT Alkaline Phosphatase Total Protein Albumin Globulin Albumin/Globulin Ratio Blood Type O POSITIVE Antibody Screen Negative 12/20/17 17:46 WBC RBC Hgb Hct MCV MCH MCHC RDW Plt Count MPV Neut % (Auto) Lymph % (Auto) [place] % (Auto) Eos % (Auto) Baso % (Auto) Neut # (Auto) Lymph # (Auto) [place] # (Auto) Eos # (Auto) Baso # (Auto) Puncture Site pCO2 pO2 HCO3 ABG pH ABG Total CO2 ABG O2 Saturation ABG Base Excess ABG Hemoglobin ABG Carboxyhemoglobin POC ABG HHb (Measured) ABG Methemoglobin Richard Test A-a O2 Difference Respiratory Index Hgb O2 Saturation Vent Mode Mechanical Rate FiO2 Tidal Volume PEEP Sodium Potassium Chloride Carbon Dioxide Anion Gap BUN Creatinine Est GFR ( Amer) Est GFR (Non-Af Amer) POC Glucose (mg/dL) 109 Random Glucose Calcium Phosphorus Magnesium Total Bilirubin AST ALT Alkaline Phosphatase Total Protein Albumin Globulin Albumin/Globulin Ratio Blood Type Antibody Screen Critical Care Progress Note - Nutrition Nutrition: Nutrition Category Date Time Status NPO Diet [DIET] Diets 12/20/17 Dinner Active Assessment/Plan - Assessment and Plan (Free Text) Plan: Patient seen and examined at bedside. Patient underwent prolonged hospital course. 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 During endoscopy, patient had blood loss requiring epi injection. Post procedure, patient was hypertensive requireing ICu monitoring. Patient developed free air requiring surgical intervention. [facility] resident documents my clinical findings and management -hypoxic respiratory failure -sepsis -MANFRED/CKD- requriing HD -acute anemia: check CT abd.pelvis, trasnfuse 1 unit blood -hypocalcemia - malnutrition -prognosis guarded cc time 35 minutes - Date & Time Date: 12/20/17 Time: 18:55
--- NOTE | 2017-12-20 16:23 | CT ---
PROCEDURE: CT Chest, Abdomen and Pelvis without intravenous contrast HISTORY: acute anemia, concern for bleed s/p OR 12/18/17 COMPARISON: 12/18/2017 TECHNIQUE: Radiation dose: Total exam DLP = 1841.89 mGy-cm. This CT exam was performed using one or more of the following dose reduction techniques: Automated exposure control, adjustment of the mA and/or kV according to patient size, and/or use of iterative reconstruction technique. FINDINGS: CT CHEST WITHOUT CONTRAST: LUNGS: No pulmonary infiltrate. Bilateral lower lobe subsegmental atelectasis. No pulmonary mass. Trace right pleural effusion. MEDIASTINUM: Unremarkable. Normal caliber aorta and pulmonary arterial trunk. Normal size heart. Endotracheal tube noted, terminating approximately 3.5 cm above the tracheal kathy. LYMPH NODES: Unremarkable. PLEURA: As above BONES: Unremarkable. OTHER FINDINGS: None. CT ABDOMEN AND PELVIS: LIVER: Unremarkable. No gross lesion or ductal dilatation. GALLBLADDER AND BILE DUCTS: Status post cholecystectomy. PANCREAS: Trace peripancreatic fluid about the head and proximal pancreatic body. 10 mm low attenuation mass in the body of pancreas unchanged. Cannot rule out pancreatitis. SPLEEN: Unremarkable. ADRENALS: Mild adrenal hypertrophy. No adrenal mass. KIDNEYS AND URETERS: Unremarkable. No hydronephrosis. No solid mass. VASCULATURE: Unremarkable. No aortic aneurysm. BOWEL: No bowel obstruction. Sigmoid diverticulosis. Status post interval laparotomy. Surgical drain inserted through right lateral abdominal wall extends to left upper quadrant of abdomen. There is a 2nd drainage catheter inserted through the right lateral abdominal wall extending to the right side of the abdomen. APPENDIX: Not identified PERITONEUM: No ascites. Previously identified pneumoperitoneum has resolved. There is trace retroperitoneal fluid sitting atop the right psoas muscle. There is a small right rectus sheath hematoma, in retrospect present on prior examination of 12/18 but decreased in extent. LYMPH NODES: Unremarkable. No enlarged lymph nodes. BLADDER: Unremarkable. REPRODUCTIVE: Normal postmenopausal uterus BONES: No acute fracture. OTHER FINDINGS: None. IMPRESSION: Resolved pneumoperitoneum. No significant ascites. Trace peripancreatic fluid. Cannot rule out pancreatitis. Interval laparotomy. Two surgical drainage catheters noted as described. There is a right rectus sheath hematoma decreased in extent compared to the prior examination, in retrospect.
--- NOTE | 2017-12-20 17:30 | CP.PCM.CON ---
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 During the procedure she experienced significant bleeding which was managed through clipping, electrocautery and epinephrine. The carcinoid tumor was discovered on 12/05/17 when she went in for an endoscopy and colonoscopy scheduled for other unrelated reasons. Her hospital course was complicated by respiratory failure, perforation of viscus requiring re-exploration and sepsis with renal failure ID was consulted today for antibiotic management at this time pt is obtunded on vent with first HD Rx in progress PMH: HTN, COPD, breast cancer s/p lumpectomy x2, asthma, cataracts of right eye , sciatica, anxiety, depression SMH: Lumpectomy x2 (as stated above), cholecystectomy, right inguinal hernia repair x3, b/l knee replacement FMH: Denies (No history of GI malignancies) Social: ~10 year remote history of tobacco use (quit 25-30 years ago); denies use of alcohol and drugs Allergies: Passion fruit Review of Systems - Review of Systems unable to provide All systems: reviewed and no additional remarkable complaints except Past Patient History - Past Medical History & Family History Past Medical History?: Yes - Past Social History Smoking Status: Former Smoker - CARDIAC Hx Cardiac Disorders: Yes Hx Hypertension: Yes (PT DENIES THOUGH NOT ON MEDS) - PULMONARY Hx Respiratory Disorders: Yes Hx Asthma: Yes Hx Chronic Obstructive Pulmonary Disease (COPD): Yes - NEUROLOGICAL Hx Neurological Disorder: No - HEENT Hx HEENT Problems: Yes Hx Cataracts: Yes (RT EYE) - RENAL Hx Chronic Kidney Disease: No - ENDOCRINE/METABOLIC Hx Endocrine Disorders: No - HEMATOLOGICAL/ONCOLOGICAL Hx Blood Disorders: No - INTEGUMENTARY Hx Dermatological Problems: No - MUSCULOSKELETAL/RHEUMATOLOGICAL Hx Musculoskeletal Disorders: Yes Hx Back Pain: Yes Hx Degenerative Joint Disease: Yes Hx Falls: Yes Hx Fractures: Yes (LEFT FOOT) Other/Comment: SCIATICA - GASTROINTESTINAL Hx Gastrointestinal Disorders: Yes Hx Gall Bladder Disease: Yes - GENITOURINARY/GYNECOLOGICAL Hx Genitourinary Disorders: No - PSYCHIATRIC Hx Psychophysiologic Disorder: Yes Hx Anxiety: Yes Hx Depression: Yes - SURGICAL HISTORY Hx Surgeries: Yes Hx Breast Biopsy: Yes (X2 RT BREAST) Hx Cholecystectomy: Yes (IN [place]) Hx Herniorrhaphy: Yes (RT INGUINAL X3) Hx Joint Replacement: Yes (BILATERAL KNEE ) Hx Orthopedic Surgery: Yes (SCREW RT FOOT) - ANESTHESIA Hx Anesthesia: Yes Hx Anesthesia Reactions: No Hx Malignant Hyperthermia: No Has any member of the family had a problem w/ anesthesia?: No Meds Allergies/Adverse Reactions: Allergies Allergy/AdvReac Type Severity Reaction Status Date / Time PASSION FRUIT Allergy Severe ANAPHYLAXIS Uncoded 11/03/13 11:17 - Medications Medications: Current Medications Acetaminophen (Tylenol 650 Mg Supp) 650 mg [place] Q4 PRN PRN Reason: Fever >100.4 F Albumin Human (Albumin Human 25% (12.5 Gm/50 Ml)) 25 gm IV Q6H FESTUS Stop: 12/21/17 00:16 Last Admin: 12/20/17 13:27 Dose: 25 gm Albuterol/Ipratropium (Duoneb 3 Mg/0.5 Mg (3 Ml) Ud) 3 ml INH RQ4 PRN PRN Reason: Shortness of Breath Last Admin: 12/18/17 20:12 Dose: 3 ml Dextrose (Dextrose 50% Inj) 0 ml IV STAT PRN; Protocol PRN Reason: Hypoglycemia Protocol Dextrose (Glutose 15) 15 gm PO ONCE PRN; Protocol PRN Reason: Hypoglycemia Protocol Glucagon (Glucagen Diagnostic Kit) 1 mg IM STAT PRN; Protocol PRN Reason: Hypoglycemia Protocol Heparin Sodium (Porcine) (Heparin) 5,000 units SC Q8 FESTUS Last Admin: 12/20/17 14:30 Dose: Not Given Hydromorphone HCl (Dilaudid) 0.5 mg IVP Q4H PRN PRN Reason: Pain, severe (8-10) Last Admin: 12/18/17 13:04 Dose: 0.5 mg Pantoprazole Sodium 80 mg/ (Sodium Chloride) 100 mls @ 10 mls/hr IV .Q10H FESTUS PRN Reason: 8 MG/HR Last Admin: 12/20/17 13:37 Dose: Not Given Dextrose (Dextrose 5% In Water 1000 Ml) 1,000 mls @ 0 mls/hr IV .Q0M PRN; Protocol; Per Protocol PRN Reason: Hypoglycemia Protocol Meropenem 500 mg/ Sodium (Chloride) 100 mls @ 100 mls/hr IVPB Q12 FESTUS PRN Reason: Protocol Last Admin: 12/20/17 13:25 Dose: 100 mls/hr BUPIVACAINE 0.125%/0.9% NACL (Bupivacaine-Ns 0.125% On-Q [employer]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) 600 mls @ 4 mls/ hr IJ ONCE ONE Stop: 12/24/17 21:59 Last Admin: 12/18/17 18:20 Dose: Not Given Sodium Bicarbonate 150 meq/ (Dextrose) 1,150 mls @ 80 mls/hr IV .[id number] FESTUS Last Admin: 12/19/17 23:45 Dose: Not Given Amino Acids (Clinimix 4.25/5 % "E" (1000 Ml)) 1,000 mls @ 84 mls/hr IV .[id number] FESTUS Stop: 12/20/17 17:59 Last Admin: 12/20/17 06:21 Dose: 84 mls/hr Fentanyl Citrate 2,500 mcg/ (Sodium Chloride) 250 mls @ 21.31 mls/hr IV .[id number] FESTUS; 2 MCG/KG/HR PRN Reason: Protocol Last Admin: 12/20/17 10:50 Dose: Not Given Multivitamins/Vitamin C 10 ml/ (Amino Acids) 1,010 mls @ 84 mls/hr IV .Q12H2M FESTUS Stop: 12/21/17 06:00 Amino Acids (Clinimix 4.25/5 % "E" (1000 Ml)) 1,000 mls @ 84 mls/hr IV .[id number] ONE Stop: 12/21/17 18:24 Insulin Human Regular (Novolin R) 0 unit SC Q6 FESTUS PRN Reason: Protocol Last Admin: 12/20/17 13:00 Dose: Not Given Ondansetron HCl (Zofran Inj) 4 mg IVP Q4 PRN PRN Reason: Nausea/Vomiting Physical Exam - Constitutional Appears: In Acute Distress, Confused - Head Exam Head Exam: NORMOCEPHALIC - Eye Exam Eye Exam: absent: Scleral icterus - ENT Exam ENT Exam: Mucous Membranes Dry Additional comments: ETT + - Neck Exam Neck exam: Negative for: Lymphadenopathy - Respiratory Exam Respiratory Exam: Decreased Breath Sounds, Prolonged Expiratory Phase, Rales, Rhonchi - Cardiovascular Exam Cardiovascular Exam: Tachycardia, REGULAR RHYTHM, +S1, +S2 - GI/Abdominal Exam GI & Abdominal Exam: Diminished Bowel Sounds, Distended, Firm. absent: Guarding , Rebound, Rigid - Rectal Exam Rectal Exam: Deferred - Exam Exam: NORMAL INSPECTION - Extremities Exam Extremities exam: Positive for: pedal edema. Negative for: calf tenderness, tenderness, pedal pulses present - Back Exam Back exam: absent: CVA tenderness (L), CVA tenderness (R), paraspinal tenderness , rash noted - Neurological Exam Neurological exam: Altered - Psychiatric Exam Psychiatric exam: Depressed - Skin Skin Exam: Dry Results - Vital Signs Recent Vital Signs: Last Vital Signs Temp 98.9 F 12/20/17 17:00 Pulse 111 H 12/20/17 17:00 Resp 19 12/20/17 17:00 BP 113/69 12/20/17 17:15 Pulse Ox 96 12/20/17 17:00 - Labs Result Diagrams: 12/20/17 07:46 12/20/17 06:30 Labs: Laboratory Results - last 24 hr 12/19/17 12/19/17 12/19/17 17:28 18:20 23:29 WBC RBC Hgb Hct MCV MCH MCHC RDW Plt Count MPV Neut % (Auto) Lymph % (Auto) Young % (Auto) Eos % (Auto) Baso % (Auto) Neut # (Auto) Lymph # (Auto) Young # (Auto) Eos # (Auto) Baso # (Auto) Puncture Site pCO2 pO2 HCO3 ABG pH ABG Total CO2 ABG O2 Saturation ABG Base Excess ABG Hemoglobin ABG Carboxyhemoglobin POC ABG HHb (Measured) ABG Methemoglobin Richard Test A-a O2 Difference Respiratory Index Hgb O2 Saturation Vent Mode Mechanical Rate FiO2 Tidal Volume PEEP Sodium 142 Potassium 4.1 Chloride 108 H Carbon Dioxide 19 L Anion Gap 20 BUN 74 H Creatinine 5.8 H Est GFR ( Amer) 9 Est GFR (Non-Af Amer) 7 POC Glucose (mg/dL) 109 145 H Random Glucose 126 H Calcium 5.6 L* Phosphorus Magnesium Total Bilirubin 0.6 AST 81 H D ALT 62 H D Alkaline Phosphatase 35 L D Total Protein 5.1 L Albumin 2.6 L Globulin 2.5 Albumin/Globulin Ratio 1.1 Blood Type Antibody Screen 12/20/17 12/20/17 12/20/17 05:00 06:11 06:26 WBC 5.2 RBC 2.93 L Hgb 8.5 L D Hct 25.1 L MCV 85.5 D MCH 28.8 MCHC 33.7 RDW 14.5 Plt Count 137 MPV 10.9 Neut % (Auto) 77.1 H Lymph % (Auto) 11.7 L Young % (Auto) 10.7 H Eos % (Auto) 0.2 Baso % (Auto) 0.3 Neut # (Auto) 4.0 Lymph # (Auto) 0.6 L Young # (Auto) 0.6 Eos # (Auto) 0.0 Baso # (Auto) 0.0 Puncture Site Rr pCO2 37 pO2 85 HCO3 19.9 L ABG pH 7.32 L ABG Total CO2 20.2 L ABG O2 Saturation 97.9 ABG Base Excess -6.4 L ABG Hemoglobin 10.2 L ABG Carboxyhemoglobin 1.5 POC ABG HHb (Measured) 2.0 ABG Methemoglobin 1.4 Richard Test Pos A-a O2 Difference 297.0 Respiratory Index 3.5 Hgb O2 Saturation 95.1 Vent Mode Prvc Mechanical Rate 14 FiO2 60.0 Tidal Volume 500 PEEP 5 Sodium Potassium Chloride Carbon Dioxide Anion Gap BUN Creatinine Est GFR ( Amer) Est GFR (Non-Af Amer) POC Glucose (mg/dL) 116 H Random Glucose Calcium Phosphorus Magnesium Total Bilirubin AST ALT Alkaline Phosphatase Total Protein Albumin Globulin Albumin/Globulin Ratio Blood Type Antibody Screen 12/20/17 12/20/17 12/20/17 06:30 07:46 09:30 WBC 4.6 L RBC 2.83 L Hgb 8.1 L Hct 24.3 L MCV 85.9 MCH 28.6 MCHC 33.3 RDW 14.1 Plt Count 132 MPV 9.6 Neut % (Auto) Lymph % (Auto) Young % (Auto) Eos % (Auto) Baso % (Auto) Neut # (Auto) Lymph # (Auto) Young # (Auto) Eos # (Auto) Baso # (Auto) Puncture Site pCO2 pO2 HCO3 ABG pH ABG Total CO2 ABG O2 Saturation ABG Base Excess ABG Hemoglobin ABG Carboxyhemoglobin POC ABG HHb (Measured) ABG Methemoglobin Richard Test A-a O2 Difference Respiratory Index Hgb O2 Saturation Vent Mode Mechanical Rate FiO2 Tidal Volume PEEP Sodium 143 Potassium 4.2 Chloride 106 Carbon Dioxide 21 L Anion Gap 20 BUN 80 H Creatinine 6.8 H Est GFR ( Amer) 7 Est GFR (Non-Af Amer) 6 POC Glucose (mg/dL) Random Glucose 108 H Calcium 6.1 L Phosphorus 4.2 Magnesium 2.2 Total Bilirubin 0.7 AST 58 H D ALT 38 Alkaline Phosphatase 30 L Total Protein 5.5 L Albumin 3.2 L D Globulin 2.2 Albumin/Globulin Ratio 1.4 Blood Type O POSITIVE Antibody Screen Negative 12/20/17 11:52 WBC RBC Hgb Hct MCV MCH MCHC RDW Plt Count MPV Neut % (Auto) Lymph % (Auto) Young % (Auto) Eos % (Auto) Baso % (Auto) Neut # (Auto) Lymph # (Auto) Young # (Auto) Eos # (Auto) Baso # (Auto) Puncture Site pCO2 pO2 HCO3 ABG pH ABG Total CO2 ABG O2 Saturation ABG Base Excess ABG Hemoglobin ABG Carboxyhemoglobin POC ABG HHb (Measured) ABG Methemoglobin Richard Test A-a O2 Difference Respiratory Index Hgb O2 Saturation Vent Mode Mechanical Rate FiO2 Tidal Volume PEEP Sodium Potassium Chloride Carbon Dioxide Anion Gap BUN Creatinine Est GFR ( Amer) Est GFR (Non-Af Amer) POC Glucose (mg/dL) 109 Random Glucose Calcium Phosphorus Magnesium Total Bilirubin AST ALT Alkaline Phosphatase Total Protein Albumin Globulin Albumin/Globulin Ratio Blood Type Antibody Screen Assessment & Plan - Assessment and Plan (Free Text) Assessment: 77yo female with history of hypertension, COPD, breast cancer s/p lumpectomy that presented to same day 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 During the procedure, patient experienced a significant amount of bleeding which was treated with a combination of clipping , electrocautery and epinephrine. Bleeding was significantly reduced however patient was subsequently admitted to ICU for close observation. Patient was admitted to ICU due to SBP 220/140s initially on cardene drip x 1 - 2 hours- now normotensive; patient now in ATN with CRE of 6.8. Returned to OR 12/18/17 due to increasing free air noted on repeat CT scan ; s/p ex lap primary repair of duodenal perforation, jourdan patch. Omentectomy. Right shiley catheter placed - 12/20. Dialysis today and tomorrow. - Changed zosyn to Meropenem renally dosed for coverage of anaerobes and gram negatives - added linezolid (GPC coverage/ enterococcus ) and micafungin (fungal coverage) -- gross abdominal spillage
[2017-12-20] MEDS ORDERED: PPN#3 IV ONE (18:00)
[2017-12-20] MEDS ORDERED: TPN#3 IV ONE (18:00)
[2017-12-20] MEDS ORDERED: PPN#3 IV SCH (18:00)
[2017-12-20] MEDS: Sodium Bicarbonate 8.4% 150 MEQ in Dextrose 5% In Water 1,000 ML IV SCH (18:03)
[2017-12-20] MEDS: Linezolid 600 mg in D5W 300 ml 600 MG/300 ML BAG IVPB SCH (21:00)
[2017-12-21] MEDS: Pantoprazole 80 MG in Sodium Chloride 0.9% 100 ML IV SCH ×4 (03:39→21:20)
--- NOTE | 2017-12-21 05:31 | CP.PCM.PN ---
<ArisBenita - Last Filed: 12/21/17 11:53> Subjective - Date & Time of Evaluation Date of Evaluation: 12/21/17 Time of Evaluation: 09:00 - Subjective Subjective: GI Fellow PGY4 Progress Note Pt seen and evaluated at bedside, pt intubated s/p repair of perforation. Pt intubated off fentanyl drip. Pt on PPN by ICU team, 1 liquid BM overnight. Pt hemodynamically stable, with no pressor support. With urine outpt overnight, 285cc. Surgical drains with 295cc of serosanguinous outpt. Pt with right femoral shiely placed by surgery and initiation of HD with 1.8L of fluid removed. Anemia s/p 1 U PRBC. ROS:A 12pt ROS was unable to be obtained due to AMS Objective - Vital Signs/Intake and Output Vital Signs (last 24 hours): Temp Pulse Resp BP Pulse Ox 98.1 F 104 H 13 117/51 L 100 12/21/17 04:00 12/21/17 04:00 12/20/17 19:00 12/21/17 03:55 12/21/17 04:00 Intake and Output: 12/20/17 12/21/17 18:59 06:59 Intake Total 2356.4 2597.0 Output Total 515 65 Balance 1841.4 2532.0 - Medications Medications: Current Medications Acetaminophen (Tylenol 650 Mg Supp) 650 mg [place] Q4 PRN PRN Reason: Fever >100.4 F Albuterol/Ipratropium (Duoneb 3 Mg/0.5 Mg (3 Ml) Ud) 3 ml INH RQ4 PRN PRN Reason: Shortness of Breath Last Admin: 12/18/17 20:12 Dose: 3 ml Dextrose (Dextrose 50% Inj) 0 ml IV STAT PRN; Protocol PRN Reason: Hypoglycemia Protocol Dextrose (Glutose 15) 15 gm PO ONCE PRN; Protocol PRN Reason: Hypoglycemia Protocol Glucagon (Glucagen Diagnostic Kit) 1 mg IM STAT PRN; Protocol PRN Reason: Hypoglycemia Protocol Heparin Sodium (Porcine) (Heparin) 5,000 units SC Q8 FESTUS Last Admin: 12/20/17 14:30 Dose: Not Given Hydromorphone HCl (Dilaudid) 0.5 mg IVP Q4H PRN PRN Reason: Pain, severe (8-10) Last Admin: 12/18/17 13:04 Dose: 0.5 mg Pantoprazole Sodium 80 mg/ (Sodium Chloride) 100 mls @ 10 mls/hr IV .Q10H FESTUS PRN Reason: 8 MG/HR Last Admin: 12/21/17 03:39 Dose: 10 mls/hr Dextrose (Dextrose 5% In Water 1000 Ml) 1,000 mls @ 0 mls/hr IV .Q0M PRN; Protocol; Per Protocol PRN Reason: Hypoglycemia Protocol Meropenem 500 mg/ Sodium (Chloride) 100 mls @ 100 mls/hr IVPB Q12 FESTUS PRN Reason: Protocol Last Admin: 12/20/17 21:02 Dose: 100 mls/hr BUPIVACAINE 0.125%/0.9% NACL (Bupivacaine-Ns 0.125% On-Q [employer]) 600 mls @ 4 mls/ hr IJ ONCE ONE Stop: 12/24/17 21:59 Last Admin: 12/18/17 18:20 Dose: Not Given Sodium Bicarbonate 150 meq/ (Dextrose) 1,150 mls @ 80 mls/hr IV .[id number] FESTUS Last Admin: 12/20/17 18:03 Dose: 80 mls/hr Fentanyl Citrate 2,500 mcg/ (Sodium Chloride) 250 mls @ 21.31 mls/hr IV .[id number] FESTUS; 2 MCG/KG/HR PRN Reason: Protocol Last Admin: 12/20/17 20:59 Dose: 1 mcg/kg/hr, 10.65 mls/hr Multivitamins/Vitamin C 10 ml/ (Amino Acids) 1,010 mls @ 84 mls/hr IV .Q12H2M FESTUS Stop: 12/21/17 06:00 Last Admin: 12/20/17 17:50 Dose: 84 mls/hr Amino Acids (Clinimix 4.25/5 % "E" (1000 Ml)) 1,000 mls @ 84 mls/hr IV .[id number] ONE Stop: 12/21/17 18:24 Micafungin Sodium 100 mg/ (Sodium Chloride) 100 mls @ 100 mls/hr IV Q24H FESTUS PRN Reason: Protocol Linezolid (Zyvox 600mg/300ml D5w) 600 mg in 300 mls @ 200 mls/hr IVPB Q12 FESTUS PRN Reason: Protocol Last Admin: 12/20/17 21:00 Dose: 200 mls/hr Insulin Human Regular (Novolin R) 0 unit SC Q6 FESTUS PRN Reason: Protocol Last Admin: 12/21/17 00:00 Dose: Not Given Ondansetron HCl (Zofran Inj) 4 mg IVP Q4 PRN PRN Reason: Nausea/Vomiting - Labs Labs: 12/20/17 07:46 12/20/17 06:30 PT 15.9 SECONDS (9.7-12.2) H 12/18/17 12:39 INR 1.5 12/18/17 12:39 APTT 40 SECONDS (21-34) H 12/18/17 12:39 - Constitutional Appears: Non-toxic, No Acute Distress - Head Exam Head Exam: ATRAUMATIC, NORMAL INSPECTION, NORMOCEPHALIC - Eye Exam Eye Exam: Normal appearance, PERRL - ENT Exam ENT Exam: Mucous Membranes Dry Additional comments: ETT - Neck Exam Neck Exam: Normal Inspection - Respiratory Exam Respiratory Exam: Rhonchi Additional comments: VDRF - Cardiovascular Exam Cardiovascular Exam: Tachycardia, +S1, +S2 - GI/Abdominal Exam GI & Abdominal Exam: Distended, Soft, Hypoactive Bowel Sounds Additional comments: ex lap, surgical scar, 2 drains - Rectal Exam Rectal Exam: Deferred - Extremities Exam Extremities Exam: Full ROM, Normal Inspection Additional comments: right hd cath - Neurological Exam Neurological Exam: Oriented x3 - Psychiatric Exam Additional comments: on fentanyl - Skin Skin Exam: Dry, Intact, Normal Color, Warm Assessment and Plan - Assessment and Plan (Free Text) Assessment: This is a 77 year old female with past medical history of hypertension, COPD, breast cancer s/p lumpectomy that presented to same day 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 Pt is s/p EGD/EUS with EMR complicated by bleeding and perforation s/p clip placement x 7, epi injection, and bipolar cautery. 1. Duodenal perforation s/p surgical repair POD#1 2. 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 Metabolic acidosis 4. Elevated LFTs 5. ARF possible ATN 6. Sepsis 7. VDRF 8. Anemia 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 and perforation that was treated with a combination of clipping, electrocautery and epinephrine - Duodenal perforation with no closure seen on repeat CT and UpperGI series, pt taken to OR with repair of perforation with jourdan patch POD#2 - Acute anemia, s/p 1 U PRBC, monitor H/H, no active GI bleeding - Protonix drip - IV abx meropenema, linezolid and micfungin by ID - Pt clinically hemodynamically stable, BP on the lower side - ARF likely ATN, s/p initiation of HD 12/20/17, monitor renal function - Metabolic acidosis likely from ARF - IVF hydration and Bicarb/Calcium - NPO - Pt started on PPN by ICU team, will discuss with surgery on plans for starting nutritional support with tube feeds instead of PPN - Appreciate surgical consult - Will continue to follow pt closely <Johnna Tovar - Last Filed: 12/21/17 12:36> Objective - Vital Signs/Intake and Output Vital Signs (last 24 hours): Temp Pulse Resp BP Pulse Ox 101.2 F H 103 H 16 118/54 L 99 12/21/17 12:00 12/21/17 12:00 12/21/17 12:00 12/21/17 12:00 12/21/17 12:00 Intake and Output: 12/21/17 12/21/17 06:59 18:59 Intake Total 3151.1 940.7 Output Total 2145 Balance 1006.1 940.7 - Medications Medications: Current Medications Acetaminophen (Tylenol 650 Mg Supp) 650 mg [place] Q4 PRN PRN Reason: Fever >100.4 F Last Admin: 12/21/17 12:23 Dose: 650 mg Albuterol/Ipratropium (Duoneb 3 Mg/0.5 Mg (3 Ml) Ud) 3 ml INH RQ4 PRN PRN Reason: Shortness of Breath Last Admin: 12/21/17 07:10 Dose: 3 ml Dextrose (Dextrose 50% Inj) 0 ml IV STAT PRN; Protocol PRN Reason: Hypoglycemia Protocol Dextrose (Glutose 15) 15 gm PO ONCE PRN; Protocol PRN Reason: Hypoglycemia Protocol Glucagon (Glucagen Diagnostic Kit) 1 mg IM STAT PRN; Protocol PRN Reason: Hypoglycemia Protocol Heparin Sodium (Porcine) (Heparin) 5,000 units SC Q8 FESTUS Last Admin: 12/20/17 14:30 Dose: Not Given Hydromorphone HCl (Dilaudid) 0.5 mg IVP Q4H PRN PRN Reason: Pain, severe (8-10) Last Admin: 12/18/17 13:04 Dose: 0.5 mg Pantoprazole Sodium 80 mg/ (Sodium Chloride) 100 mls @ 10 mls/hr IV .Q10H FESTUS PRN Reason: 8 MG/HR Last Admin: 12/21/17 03:39 Dose: 10 mls/hr Dextrose (Dextrose 5% In Water 1000 Ml) 1,000 mls @ 0 mls/hr IV .Q0M PRN; Protocol; Per Protocol PRN Reason: Hypoglycemia Protocol Meropenem 500 mg/ Sodium (Chloride) 100 mls @ 100 mls/hr IVPB Q12 FESTUS PRN Reason: Protocol Last Admin: 12/21/17 09:34 Dose: 100 mls/hr BUPIVACAINE 0.125%/0.9% NACL (Bupivacaine-Ns 0.125% On-Q [employer] Professional) 600 mls @ 4 mls/ hr IJ ONCE ONE Stop: 12/24/17 21:59 Last Admin: 12/18/17 18:20 Dose: Not Given Amino Acids (Clinimix 4.25/5 % "E" (1000 Ml)) 1,000 mls @ 84 mls/hr IV .[id number] ONE Stop: 12/21/17 18:24 Last Admin: 12/21/17 06:22 Dose: 84 mls/hr Micafungin Sodium 100 mg/ (Sodium Chloride) 100 mls @ 100 mls/hr IV Q24H FESTUS PRN Reason: Protocol Last Admin: 12/21/17 09:33 Dose: 100 mls/hr Linezolid (Zyvox 600mg/300ml D5w) 600 mg in 300 mls @ 200 mls/hr IVPB Q12 FESTUS PRN Reason: Protocol Last Admin: 12/21/17 09:36 Dose: 200 mls/hr Calcium Gluconate 2,000 mg/ (Sodium Chloride) 120 mls @ 42 mls/hr IVPB ONCE ONE Stop: 12/21/17 12:51 Last Admin: 12/21/17 10:58 Dose: 42 mls/hr BUPIVACAINE 0.125%/0.9% NACL (Bupivacaine-Ns 0.125% On-Q [employer] Professional) 600 mls @ 4 mls/ hr IJ ONCE ONE Stop: 12/27/17 15:59 Last Admin: 12/21/17 10:08 Dose: 4 mls/hr Propofol (Diprivan) 1,000 mg in 100 mls @ 3.225 mls/hr IVP .Q24H PRN; Protocol ; 5 MCG/KG/MIN PRN Reason: TITRATE PER MD ORDER Multivitamins/Vitamin C 10 ml/ (Amino Acids) 1,010 mls @ 42 mls/hr IV .Q24H ONE Stop: 12/22/17 17:59 Insulin Human Regular (Novolin R) 0 unit SC Q6 FESTUS PRN Reason: Protocol Last Admin: 12/21/17 06:22 Dose: Not Given Ondansetron HCl (Zofran Inj) 4 mg IVP Q4 PRN PRN Reason: Nausea/Vomiting - Labs Labs: 12/21/17 06:13 12/21/17 06:13 PT 15.9 SECONDS (9.7-12.2) H 12/18/17 12:39 INR 1.5 12/18/17 12:39 APTT 40 SECONDS (21-34) H 12/18/17 12:39 Attending/Attestation - Attestation I have personally seen and examined this patient.: Yes I have fully participated in the care of the patient.: Yes I have reviewed all pertinent clinical information, including history, physical exam and plan: Yes Notes (Text): 12/21/17 12:34 77 year old female with duodenal carcinoid s/p EMR c/b perforation now s/p laparotomy with jourdan patch closure of defect, course complicated by MANFRED 2/2 ATN now on HD but off pressors. She remains critically ill in ICU on vent. Renal failure appears to be improving. Wean from vent as tolerated. Continue broad spectrum abx. Appreciate surgical recs post op. Rest of care as per MICU
[2017-12-21 05:33] LABS: ABG ALLEN TEST POS; ARTERIAL BLOOD GAS HCO3 22.9 mmol/L (21-28); ARTERIAL BLOOD GAS HEMOGLOBIN 8.8 g/dL (11.7-17.4); ARTERIAL BLOOD GAS O2 SAT 99.1 % (95-98); ARTERIAL BLOOD GAS PCO2 47 mm/Hg (35-45); ARTERIAL BLOOD GAS PH 7.31 (7.35-7.45); ARTERIAL BLOOD GAS PO2 103 mm/Hg (80-100); ARTERIAL BLOOD GAS TCO2 25.1 mmol/L (22-28)
[2017-12-21] MEDS: Sodium Bicarbonate 8.4% 150 MEQ in Dextrose 5% In Water 1,000 ML IV SCH (06:21)
[2017-12-21] MEDS: (Novolin R) Insulin Human Regular 100 units/ml vial SC SCH ×3 (06:22→12:00)
[2017-12-21 06:26] LABS: BASO % 0.1 % (0.0-2.0); EOS # 0.1 K/uL (0.0-0.7); EOS % 1.6 % (0.0-4.0); HEMOGLOBIN 8.3 g/dL (11.0-16.0); LYMPH # 0.6 K/uL (1.0-4.3); LYMPH % 7.6 % (20.0-40.0); MEAN CELL VOLUME 85.1 fL (81.0-99.0); MEAN CORPUSCULAR HEMOGLOBIN 29.3 pg (27.0-31.0); MEAN CORPUSCULAR HGB CONC 34.4 g/dL (33.0-37.0); MEAN PLATELET VOLUME 10.6 fL (7.2-11.7); MONO # 0.3 K/uL (0.0-0.8); MONO % 4.5 % (0.0-10.0); NEUT # 6.5 K/uL (1.8-7.0); NEUT % 86.2 % (50.0-75.0); PLATELET COUNT 127 K/uL (130-400); RBC 2.85 Mil/uL (3.80-5.20); RED CELL DISTRIBUTION WIDTH 14.3 % (11.5-14.5); WHITE BLOOD COUNT 7.6 K/uL (4.8-10.8)
[2017-12-21] MEDS ORDERED: PPN#4 IV ONE ×2 (06:30)
[2017-12-21 06:44] LABS: ALB/GLOB RATIO 1.6 (1.0-2.1); ALBUMIN 3.6 g/dL (3.5-5.0); CALCIUM 6.2 mg/dl (8.6-10.4)
[2017-12-21] MEDS: Albuterol-Ipratrop 3 mg / 0.5 (3 ml) UD INH PRN ×2 (07:10→14:05)
--- NOTE | 2017-12-21 08:02 | OP ---
PROCEDURE DATE: 12/18/2017 PREOPERATIVE DIAGNOSES: 1. Duodenal perforation, status post endoscopic resection of the duodenal carcinoid. 2. Acute abdomen. 3. Severe sepsis. 4. Acute renal failure. POSTOPERATIVE DIAGNOSES: 1. Duodenal perforation of inferior border of first part of duodenum. 2. Extensive bilious peritonitis with multiple collection. 3. Extensive retroperitoneal necrosis and retroperitoneal collection. 4. Foreign body clips at the site of perforation. 5. Abdominal wall bilious contamination as well as necrosis. PROCEDURE DONE: 1. Exploratory laparotomy. 2. Repair of the first part of the duodenum, inferior portion with Carlos patch. 3. Drainage of intraabdominal multiple bilious collections. 4. Partial omentectomy. 5. Peritoneal biopsy closed by perforation site. 6. Debridement of the retroperitoneum with drainage of retroperitoneal collection. 7. Mobilization of the right colon with kocherization of the duodenum. 8. Abdominal wall debridement. 9. Removal of foreign body, the endoscopy clips 5. 10.Bilateral On-Q pain catheter pump placement. SURGEON: Deion Alatorre MD EMISSIONS TECHNICIAN: LAWANDA Jones; and Shirin, PGY-2 resident. TYPE OF ANESTHESIA: General endotracheal tube anesthesia. ESTIMATED BLOOD LOSS: Around 400 mL. DRAINS: Two drains were placed. One in the retroperitoneum. The second drain was placed into the pelvis. COMPLICATIONS: None. INTRAOPERATIVE FINDINGS: 1. The patient had duodenal perforation with necrosis of the first part of duodenum inferiorly. 2. The patient had multiple intraabdominal collection due to the bilious peritonitis. 3. The patient had gross retroperitoneal necrosis as well as bilious contamination with extensive bilious collections. 4. The patient also had abdominal wall bilious contamination with necrosis surprisingly and due to morbid obesity, due to the extensive nature of the disease, it took approximately 80 to 120 minutes extra for the routine procedure. DESCRIPTION OF PROCEDURE: On intraoperative steps, this is a 77-year-old female who underwent endoscopic resection of the duodenal carcinoid, and the patient found to have postprocedure perforation of the duodenum and the patient was managed endoscopically with a clip placement, and the patient was admitted in the ICU. For initial plus 2 days, the patient did well but on the third day, the patient was showing signs of sepsis as well as severe sepsis and upper GI series was suggestive of leak at the site of clip placement of duodenal perforation, and the patient and family was consented for exploratory laparotomy and possible bowel resection, possible repair of the perforation and drainage of collection, and the patient was brought to the OR, placed supine on operating table. After induction of the anesthesia, the abdomen was prepped and draped in usual sterile fashion. The midline laparotomy was done from the xiphisternum up to the infraumbilical area. After incising the skin, subcutaneous tissue, and the fascia, the patient was found to have bilious contamination of the preperitoneal space, and the bile was drained, and abdominal wall was debrided, and the peritoneal cavity was entered. The omentum appeared to be adhesed as well as involved into the collections and multiple intraabdominal collections were drained, and now, the mobilization of the right colon was done, and the Bookwalter was used for the retraction. First, the right colon was mobilized completely and the retroperitoneum was entered, and the patient was found to have complete necrosis as well as multiple collection into the retroperitoneum and approximately 2 to 3 liter of bile was drained and debridement of the retroperitoneal area was done, and after that, the perforation was identified after kocherization of the duodenum, and there was a thick tissue surrounding the duodenal perforation and peritoneal biopsy was done to rule out the carcinoid, and there was necrosis on the duodenal wall that was bluntly debrided. The duodenal perforation was repaired with 2-0 silk interrupted sutures and making sure the posterior wall does not get involved into the repair, and post repair, methylene blue was injected into the stomach to check for the leaks as well as air leak test, and there was no leak identified. There was no methylene blue identified into the repair site, and after that, the partial omentectomy was done and omentum was prepared for the Carlos patch, and the omentum was sutured to the repair site, and after that, the abdominal washout was done with 5 liter of fluid. One drain was placed into the retroperitoneum, another drain was placed into the pelvis. The bilateral On-Q pain catheter pump was placed, and it was connected to the chambers and the abdominal cavity was closed with #1 loop PDS and another abdominal wall debridement was done due to the bilious contamination of the preperitoneal space, and 0 Prolene was used for interrupted closure. The skin was approximated with gayle and dry sterile dressing was applied. The patient tolerated the procedure well. Count of instrument and gauze was correct. There were no apparent complications. The patient was kept intubated, and was sent to the postanesthesia care unit in stable condition. Deion Alatorre MD MTDPatrice
--- NOTE | 2017-12-21 08:07 | CP.PCM.PN ---
Subjective - Date & Time of Evaluation Date of Evaluation: 12/21/17 Time of Evaluation: 07:00 - Subjective Subjective: SURGERY NOTE FOR DR. GILMORE 77F seen and examined at bedside. Patient received shiley and dialysis yesterday. No acute events overnight. Objective - Vital Signs/Intake and Output Vital Signs (last 24 hours): Temp Pulse Resp BP Pulse Ox 98.1 F 108 H 13 121/52 L 100 12/21/17 04:00 12/21/17 06:00 12/20/17 19:00 12/21/17 05:54 12/21/17 06:00 Intake and Output: 12/21/17 12/21/17 06:59 18:59 Intake Total 3151.1 Output Total 2145 Balance 1006.1 - Medications Medications: Current Medications Acetaminophen (Tylenol 650 Mg Supp) 650 mg NM Q4 PRN PRN Reason: Fever >100.4 F Albuterol/Ipratropium (Duoneb 3 Mg/0.5 Mg (3 Ml) Ud) 3 ml INH RQ4 PRN PRN Reason: Shortness of Breath Last Admin: 12/21/17 07:10 Dose: 3 ml Dextrose (Dextrose 50% Inj) 0 ml IV STAT PRN; Protocol PRN Reason: Hypoglycemia Protocol Dextrose (Glutose 15) 15 gm PO ONCE PRN; Protocol PRN Reason: Hypoglycemia Protocol Glucagon (Glucagen Diagnostic Kit) 1 mg IM STAT PRN; Protocol PRN Reason: Hypoglycemia Protocol Heparin Sodium (Porcine) (Heparin) 5,000 units SC Q8 FESTUS Last Admin: 12/20/17 14:30 Dose: Not Given Hydromorphone HCl (Dilaudid) 0.5 mg IVP Q4H PRN PRN Reason: Pain, severe (8-10) Last Admin: 12/18/17 13:04 Dose: 0.5 mg Pantoprazole Sodium 80 mg/ (Sodium Chloride) 100 mls @ 10 mls/hr IV .Q10H FESTUS PRN Reason: 8 MG/HR Last Admin: 12/21/17 03:39 Dose: 10 mls/hr Dextrose (Dextrose 5% In Water 1000 Ml) 1,000 mls @ 0 mls/hr IV .Q0M PRN; Protocol; Per Protocol PRN Reason: Hypoglycemia Protocol Meropenem 500 mg/ Sodium (Chloride) 100 mls @ 100 mls/hr IVPB Q12 FESTUS PRN Reason: Protocol Last Admin: 12/20/17 21:02 Dose: 100 mls/hr BUPIVACAINE 0.125%/0.9% NACL (Bupivacaine-Ns 0.125% On-Q Hearing Instrument Specialist) 600 mls @ 4 mls/ hr IJ ONCE ONE Stop: 12/24/17 21:59 Last Admin: 12/18/17 18:20 Dose: Not Given Sodium Bicarbonate 150 meq/ (Dextrose) 1,150 mls @ 80 mls/hr IV .[id number] FESTUS Last Admin: 12/21/17 06:21 Dose: 80 mls/hr Fentanyl Citrate 2,500 mcg/ (Sodium Chloride) 250 mls @ 21.31 mls/hr IV .[id number] FESTUS; 2 MCG/KG/HR PRN Reason: Protocol Last Admin: 12/20/17 20:59 Dose: 1 mcg/kg/hr, 10.65 mls/hr Amino Acids (Clinimix 4.25/5 % "E" (1000 Ml)) 1,000 mls @ 84 mls/hr IV .[id number] ONE Stop: 12/21/17 18:24 Last Admin: 12/21/17 06:22 Dose: 84 mls/hr Micafungin Sodium 100 mg/ (Sodium Chloride) 100 mls @ 100 mls/hr IV Q24H FESTUS PRN Reason: Protocol Linezolid (Zyvox 600mg/300ml D5w) 600 mg in 300 mls @ 200 mls/hr IVPB Q12 FESTUS PRN Reason: Protocol Last Admin: 12/20/17 21:00 Dose: 200 mls/hr Calcium Gluconate 2,000 mg/ (Sodium Chloride) 270 mls @ 42 mls/hr IVPB ONCE ONE Stop: 12/21/17 16:25 Insulin Human Regular (Novolin R) 0 unit SC Q6 FESTUS PRN Reason: Protocol Last Admin: 12/21/17 06:22 Dose: Not Given Ondansetron HCl (Zofran Inj) 4 mg IVP Q4 PRN PRN Reason: Nausea/Vomiting - Labs Labs: 12/21/17 06:13 12/21/17 06:13 PT 15.9 SECONDS (9.7-12.2) H 06/13/18 12:39 INR 1.5 12/18/17 12:39 APTT 40 SECONDS (21-34) H 12/18/17 12:39 - Constitutional Appears: Other (intubated, on fentanyl) - Respiratory Exam Respiratory Exam: Clear to Ausculation Bilateral, NORMAL BREATHING PATTERN Additional comments: intubated, on PRVC 60/5/14/500 - Cardiovascular Exam Cardiovascular Exam: REGULAR RHYTHM, +S1, +S2 - GI/Abdominal Exam GI & Abdominal Exam: Soft. absent: Distended, Firm, Guarding, Rigid, Rebound Additional comments: Dressing CDI KORI drain - 60/20, dark serous bile tinged fluid - Extremities Exam Extremities Exam: Tenderness. 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 Pt is s/p EGD/EUS with EMR complicated by bleeding and perforation s/p clip placement x 7, epi injection, and bipolar cautery. POD 3 s/p exploratory laparotomy primary repair of duodenal perf and jourdan patch Urine 150cc/24hrs Plan: NPO NGT placement Monitor dressing KORI outputs Replace on-Q ball Switch to TPN Dialysis per nephro Further recs discuss with Dr. Gutierrez Fitzpatrick, PGY2
--- NOTE | 2017-12-21 08:10 | CP.CCUPN ---
<Estefania Veliz - Last Filed: 12/21/17 08:02> CCU Subjective - Physician Review Subjective (Free Text): Patient seen and examined at bedside. Intubated on PRVC 14/60/500/5 on fentanyl drip. Right femoral shiley catheter inserted. Consented for dialysis. Dialysis 12/20 and 12/21. CCU Objective - Vital Signs / Intake & Output Vital Signs (Last 4 hours): Vital Signs Pulse BP Pulse Ox 12/21/17 06:00 108 H 100 12/21/17 05:54 121/52 L 12/21/17 05:00 103 H 100 12/21/17 04:54 125/50 L Intake and Output (Last 8hrs): Intake & Output 12/20/17 12/21/17 12/21/17 22:59 06:59 14:59 Intake Total 2237.6 2062.3 Output Total 2045 230 Balance 192.6 1832.3 Weight 235 lb 7.612 oz 237 lb Intake: IV 250 Intake, IV Amount 1337.6 2062.3 Left Distal Port Forearm 100 400 Left Forearm 32.1 96.3 Right Distal Port PICC 30 90 Right PICC 420 720 left AC y port 53.5 right picc 2nd port 702 756 Blood Product 650 Red Blood Cells Cpd As1 325 Lr Unit [id number] Output: Drainage 115 80 KORI 1 55 60 KORI 2 60 20 Urine 80 150 Urethral (Bruce) 80 150 Other 1850 Other: # Bowel Movements 1 1 - Physical Exam Head: Positive for: Atraumatic, Normocephalic, Ecchymosis Extroacular Muscles: Positive for: EOMI Conjunctiva: Positive for: Normal Mouth: Positive for: Other (INTUBATED) Nose (External): Positive for: Other (NGT in place ) Respiratory/Chest: Positive for: Clear to Auscultation. Negative for: Decreased Breath Sounds Cardiovascular: Positive for: Regular Rate and Rhythm Abdomen: Positive for: Tenderness, Normal Bowel Sounds, Guarding. Negative for : Distention Upper Extremity: Positive for: Normal Inspection, NORMAL PULSES, Neurovascularly Intact, Capillary Refill < 2s Lower Extremity: Positive for: Normal Inspection, NORMAL PULSES, Neurovascularly Intact, Capillary Refill < 2 s Neurological: Positive for: GCS=15, CN II-XII Intact Skin: Positive for: Warm, Dry, Normal Color Psychiatric: Positive for: Alert, Oriented x 3, Normal Insight, Normal Concentration - Medications Active Medications: Active Medications Generic Name Dose Route Start Last Admin Trade Name Freq PRN Reason Stop Dose Admin Acetaminophen 650 mg 12/18/17 18:04 Tylenol 650 Mg Supp SC Q4 PRN Fever >100.4 F Albuterol/Ipratropium 3 ml 12/16/17 12:03 12/21/17 07:10 Duoneb 3 Mg/0.5 Mg (3 Ml) Ud INH 3 ml RQ4 PRN Administration Shortness of Breath Dextrose 0 ml 12/16/17 12:08 Dextrose 50% Inj IV STAT PRN Hypoglycemia Protocol Protocol Dextrose 15 gm 12/16/17 12:08 Glutose 15 PO ONCE PRN Hypoglycemia Protocol Protocol Glucagon 1 mg 12/16/17 12:08 Glucagen Diagnostic Kit IM STAT PRN Hypoglycemia Protocol Protocol Heparin Sodium (Porcine) 5,000 units 12/20/17 06:00 12/20/17 14:30 Heparin SC Not Given Q8 FESTUS Hydromorphone HCl 0.5 mg 12/17/17 09:53 12/18/17 13:04 Dilaudid IVP 0.5 mg Q4H PRN Administration Pain, severe (8-10) Pantoprazole Sodium 80 mg/ 100 mls @ 10 mls/hr 12/16/17 09:35 12/21/17 03:39 Sodium Chloride IV 10 mls/hr .Q10H FESTUS Administration 8 MG/HR Dextrose 1,000 mls @ 0 mls/hr 12/16/17 12:08 Dextrose 5% In Water 1000 Ml IV .Q0M PRN Hypoglycemia Protocol Protocol Per Protocol Meropenem 500 mg/ Sodium 100 mls @ 100 mls/hr 12/18/17 10:00 12/20/17 21:02 Chloride IVPB 100 mls/hr Q12 FESTUS Administration Protocol BUPIVACAINE 0.125%/0.9% NACL 600 mls @ 4 mls/hr 12/18/17 16:00 12/18/17 18:20 Bupivacaine-Ns 0.125% On-Q Roll Forming Machine Set Up Operator IJ 12/24/17 21:59 Not Given ONCE ONE Sodium Bicarbonate 150 meq/ 1,150 mls @ 80 mls/hr 12/19/17 09:30 12/21/17 06: 21 Dextrose IV 80 mls/hr .[id number] FESTUS Administration Fentanyl Citrate 2,500 mcg/ 250 mls @ 21.31 mls/hr 12/19/17 22:30 12/20/17 20 :59 Sodium Chloride IV 1 mcg/kg/hr .[id number] FESTUS 10.65 mls/hr Protocol Administration 2 MCG/KG/HR Amino Acids 1,000 mls @ 84 mls/hr 12/21/17 06:30 12/21/17 06:22 Clinimix 4.25/5 % "E" (1000 Ml) IV 12/21/17 18:24 84 mls/hr .[id number] ONE Administration Micafungin Sodium 100 mg/ 100 mls @ 100 mls/hr 12/21/17 10:00 Sodium Chloride IV Q24H [facility] Protocol Linezolid 600 mg in 300 mls @ 200 mls/hr 12/20/17 22:00 12/20/17 21:00 Zyvox 600mg/300ml D5w IVPB 200 mls/hr Q12 FESTUS Administration Protocol Calcium Gluconate 2,000 mg/ 270 mls @ 42 mls/hr 12/21/17 10:00 Sodium Chloride IVPB 12/21/17 16:25 ONCE ONE Insulin Human Regular 0 unit 12/19/17 00:00 12/21/17 06:22 Novolin R SC Not Given Q6 [facility] Protocol Ondansetron HCl 4 mg 12/18/17 18:03 Zofran Inj IVP Q4 PRN Nausea/Vomiting - Patient Studies Lab Studies: Microbiology Studies 12/17/17 16:00 Blood Culture - Preliminary Blood-Venous NO GROWTH AFTER 3 DAYS 12/17/17 16:40 Blood Culture - Preliminary Blood-Venous NO GROWTH AFTER 3 DAYS Lab Studies 12/21/17 12/21/17 12/21/17 Range/Units 06:13 06:13 05:05 WBC 7.6 D (4.8-10.8) K/uL RBC 2.85 L (3.80-5.20) Mil/uL Hgb 8.3 L (11.0-16.0) g/dL Hct 24.3 L (34.0-47.0) % MCV 85.1 (81.0-99.0) fL MCH 29.3 (27.0-31.0) pg MCHC 34.4 (33.0-37.0) g/dL RDW 14.3 (11.5-14.5) % Plt Count 127 L (130-400) K/uL MPV 10.6 (7.2-11.7) fL Neut % (Auto) 86.2 H (50.0-75.0) % Lymph % (Auto) 7.6 L (20.0-40.0) % [place] % (Auto) 4.5 (0.0-10.0) % Eos % (Auto) 1.6 (0.0-4.0) % Baso % (Auto) 0.1 (0.0-2.0) % Neut # (Auto) 6.5 (1.8-7.0) K/uL Lymph # (Auto) 0.6 L (1.0-4.3) K/uL [place] # (Auto) 0.3 (0.0-0.8) K/uL Eos # (Auto) 0.1 (0.0-0.7) K/uL Baso # (Auto) 0.0 (0.0-0.2) K/uL Puncture Site Rr pCO2 47 H (35-45) mm/Hg pO2 103 H (80-100) mm/Hg HCO3 22.9 (21-28) mmol/L ABG pH 7.31 L (7.35-7.45) ABG Total CO2 25.1 (22-28) mmol/L ABG O2 Saturation 99.1 H (95-98) % ABG Base Excess -2.6 L (-2.0-3.0) mmol/L ABG Hemoglobin 8.8 L (11.7-17.4) g/dL ABG Carboxyhemoglobin 1.5 (0.5-1.5) % POC ABG HHb (Measured) 0.9 (0.0-5.0) % ABG Methemoglobin 1.3 (0.0-3.0) % Richard Test Pos A-a O2 Difference 266.0 mm/Hg Respiratory Index 2.6 Hgb O2 Saturation 96.2 (95.0-98.0) % Vent Mode Prvc Mechanical Rate 14 FiO2 60.0 % Tidal Volume 500 PEEP 5 Sodium 143 (132-148) mmol/L Potassium 4.2 (3.6-5.2) mmol/L Chloride 102 (98-107) mmol/L Carbon Dioxide 22 (22-30) mmol/L Anion Gap 23 H (10-20) BUN 80 H (7-17) mg/dL Creatinine 6.0 H (0.7-1.2) mg/dL Est GFR ( Amer) 8 Est GFR (Non-Af Amer) 7 POC Glucose (mg/dL) (65-110) mg/dL Random Glucose 96 (65-105) mg/dL Calcium 6.2 L (8.6-10.4) mg/dl Phosphorus 4.9 H (2.5-4.5) mg/dL Magnesium 2.2 (1.6-2.3) mg/dL Total Bilirubin 0.7 (0.2-1.3) mg/dL AST 47 H (14-36) U/L ALT 27 (9-52) U/L Alkaline Phosphatase 32 L (38-126) U/L Total Protein 5.8 L (6.3-8.3) g/dL Albumin 3.6 (3.5-5.0) g/dL Globulin 2.2 (2.2-3.9) gm/dL Albumin/Globulin Ratio 1.6 (1.0-2.1) Blood Type Antibody Screen 12/21/17 12/20/17 12/20/17 Range/Units 04:45 23:31 17:46 WBC (4.8-10.8) K/uL RBC (3.80-5.20) Mil/uL Hgb (11.0-16.0) g/dL Hct (34.0-47.0) % MCV (81.0-99.0) fL MCH (27.0-31.0) pg MCHC (33.0-37.0) g/dL RDW (11.5-14.5) % Plt Count (130-400) K/uL MPV (7.2-11.7) fL Neut % (Auto) (50.0-75.0) % Lymph % (Auto) (20.0-40.0) % [place] % (Auto) (0.0-10.0) % Eos % (Auto) (0.0-4.0) % Baso % (Auto) (0.0-2.0) % Neut # (Auto) (1.8-7.0) K/uL Lymph # (Auto) (1.0-4.3) K/uL [place] # (Auto) (0.0-0.8) K/uL Eos # (Auto) (0.0-0.7) K/uL Baso # (Auto) (0.0-0.2) K/uL Puncture Site pCO2 (35-45) mm/Hg pO2 (80-100) mm/Hg HCO3 (21-28) mmol/L ABG pH (7.35-7.45) ABG Total CO2 (22-28) mmol/L ABG O2 Saturation (95-98) % ABG Base Excess (-2.0-3.0) mmol/L ABG Hemoglobin (11.7-17.4) g/dL ABG Carboxyhemoglobin (0.5-1.5) % POC ABG HHb (Measured) (0.0-5.0) % ABG Methemoglobin (0.0-3.0) % Richard Test A-a O2 Difference mm/Hg Respiratory Index Hgb O2 Saturation (95.0-98.0) % Vent Mode Mechanical Rate FiO2 % Tidal Volume PEEP Sodium (132-148) mmol/L Potassium (3.6-5.2) mmol/L Chloride (98-107) mmol/L Carbon Dioxide (22-30) mmol/L Anion Gap (10-20) BUN (7-17) mg/dL Creatinine (0.7-1.2) mg/dL Est GFR ( Amer) Est GFR (Non-Af Amer) POC Glucose (mg/dL) 121 H 133 H 109 (65-110) mg/dL Random Glucose (65-105) mg/dL Calcium (8.6-10.4) mg/dl Phosphorus (2.5-4.5) mg/dL Magnesium (1.6-2.3) mg/dL Total Bilirubin (0.2-1.3) mg/dL AST (14-36) U/L ALT (9-52) U/L Alkaline Phosphatase (38-126) U/L Total Protein (6.3-8.3) g/dL Albumin (3.5-5.0) g/dL Globulin (2.2-3.9) gm/dL Albumin/Globulin Ratio (1.0-2.1) Blood Type Antibody Screen 12/20/17 12/20/17 Range/Units 11:52 09:30 WBC (4.8-10.8) K/uL RBC (3.80-5.20) Mil/uL Hgb (11.0-16.0) g/dL Hct (34.0-47.0) % MCV (81.0-99.0) fL MCH (27.0-31.0) pg MCHC (33.0-37.0) g/dL RDW (11.5-14.5) % Plt Count (130-400) K/uL MPV (7.2-11.7) fL Neut % (Auto) (50.0-75.0) % Lymph % (Auto) (20.0-40.0) % [place] % (Auto) (0.0-10.0) % Eos % (Auto) (0.0-4.0) % Baso % (Auto) (0.0-2.0) % Neut # (Auto) (1.8-7.0) K/uL Lymph # (Auto) (1.0-4.3) K/uL [place] # (Auto) (0.0-0.8) K/uL Eos # (Auto) (0.0-0.7) K/uL Baso # (Auto) (0.0-0.2) K/uL Puncture Site pCO2 (35-45) mm/Hg pO2 (80-100) mm/Hg HCO3 (21-28) mmol/L ABG pH (7.35-7.45) ABG Total CO2 (22-28) mmol/L ABG O2 Saturation (95-98) % ABG Base Excess (-2.0-3.0) mmol/L ABG Hemoglobin (11.7-17.4) g/dL ABG Carboxyhemoglobin (0.5-1.5) % POC ABG HHb (Measured) (0.0-5.0) % ABG Methemoglobin (0.0-3.0) % Richard Test A-a O2 Difference mm/Hg Respiratory Index Hgb O2 Saturation (95.0-98.0) % Vent Mode Mechanical Rate FiO2 % Tidal Volume PEEP Sodium (132-148) mmol/L Potassium (3.6-5.2) mmol/L Chloride (98-107) mmol/L Carbon Dioxide (22-30) mmol/L Anion Gap (10-20) BUN (7-17) mg/dL Creatinine (0.7-1.2) mg/dL Est GFR ( Amer) Est GFR (Non-Af Amer) POC Glucose (mg/dL) 109 (65-110) mg/dL Random Glucose (65-105) mg/dL Calcium (8.6-10.4) mg/dl Phosphorus (2.5-4.5) mg/dL Magnesium (1.6-2.3) mg/dL Total Bilirubin (0.2-1.3) mg/dL AST (14-36) U/L ALT (9-52) U/L Alkaline Phosphatase (38-126) U/L Total Protein (6.3-8.3) g/dL Albumin (3.5-5.0) g/dL Globulin (2.2-3.9) gm/dL Albumin/Globulin Ratio (1.0-2.1) Blood Type O POSITIVE Antibody Screen Negative Laboratory Results - last 24 hr 12/20/17 12/20/17 12/20/17 09:30 11:52 17:46 WBC RBC Hgb Hct MCV MCH MCHC RDW Plt Count MPV Neut % (Auto) Lymph % (Auto) [place] % (Auto) Eos % (Auto) Baso % (Auto) Neut # (Auto) Lymph # (Auto) [place] # (Auto) Eos # (Auto) Baso # (Auto) Puncture Site pCO2 pO2 HCO3 ABG pH ABG Total CO2 ABG O2 Saturation ABG Base Excess ABG Hemoglobin ABG Carboxyhemoglobin POC ABG HHb (Measured) ABG Methemoglobin Richard Test A-a O2 Difference Respiratory Index Hgb O2 Saturation Vent Mode Mechanical Rate FiO2 Tidal Volume PEEP Sodium Potassium Chloride Carbon Dioxide Anion Gap BUN Creatinine Est GFR ( Amer) Est GFR (Non-Af Amer) POC Glucose (mg/dL) 109 109 Random Glucose Calcium Phosphorus Magnesium Total Bilirubin AST ALT Alkaline Phosphatase Total Protein Albumin Globulin Albumin/Globulin Ratio Blood Type O POSITIVE Antibody Screen Negative 12/20/17 12/21/17 12/21/17 23:31 04:45 05:05 WBC RBC Hgb Hct MCV MCH MCHC RDW Plt Count MPV Neut % (Auto) Lymph % (Auto) [place] % (Auto) Eos % (Auto) Baso % (Auto) Neut # (Auto) Lymph # (Auto) [place] # (Auto) Eos # (Auto) Baso # (Auto) Puncture Site Rr pCO2 47 H pO2 103 H HCO3 22.9 ABG pH 7.31 L ABG Total CO2 25.1 ABG O2 Saturation 99.1 H ABG Base Excess -2.6 L ABG Hemoglobin 8.8 L ABG Carboxyhemoglobin 1.5 POC ABG HHb (Measured) 0.9 ABG Methemoglobin 1.3 Richard Test Pos A-a O2 Difference 266.0 Respiratory Index 2.6 Hgb O2 Saturation 96.2 Vent Mode Prvc Mechanical Rate 14 FiO2 60.0 Tidal Volume 500 PEEP 5 Sodium Potassium Chloride Carbon Dioxide Anion Gap BUN Creatinine Est GFR ( Amer) Est GFR (Non-Af Amer) POC Glucose (mg/dL) 133 H 121 H Random Glucose Calcium Phosphorus Magnesium Total Bilirubin AST ALT Alkaline Phosphatase Total Protein Albumin Globulin Albumin/Globulin Ratio Blood Type Antibody Screen 12/21/17 12/21/17 06:13 06:13 WBC 7.6 D RBC 2.85 L Hgb 8.3 L Hct 24.3 L MCV 85.1 MCH 29.3 MCHC 34.4 RDW 14.3 Plt Count 127 L MPV 10.6 Neut % (Auto) 86.2 H Lymph % (Auto) 7.6 L [place] % (Auto) 4.5 Eos % (Auto) 1.6 Baso % (Auto) 0.1 Neut # (Auto) 6.5 Lymph # (Auto) 0.6 L [place] # (Auto) 0.3 Eos # (Auto) 0.1 Baso # (Auto) 0.0 Puncture Site pCO2 pO2 HCO3 ABG pH ABG Total CO2 ABG O2 Saturation ABG Base Excess ABG Hemoglobin ABG Carboxyhemoglobin POC ABG HHb (Measured) ABG Methemoglobin Richard Test A-a O2 Difference Respiratory Index Hgb O2 Saturation Vent Mode Mechanical Rate FiO2 Tidal Volume PEEP Sodium 143 Potassium 4.2 Chloride 102 Carbon Dioxide 22 Anion Gap 23 H BUN 80 H Creatinine 6.0 H Est GFR ( Amer) 8 Est GFR (Non-Af Amer) 7 POC Glucose (mg/dL) Random Glucose 96 Calcium 6.2 L Phosphorus 4.9 H Magnesium 2.2 Total Bilirubin 0.7 AST 47 H ALT 27 Alkaline Phosphatase 32 L Total Protein 5.8 L Albumin 3.6 Globulin 2.2 Albumin/Globulin Ratio 1.6 Blood Type Antibody Screen Fingerstick Blood Sugar Results: 109 Critical Care Progress Note - Nutrition Nutrition: Nutrition Category Date Time Status NPO Diet [DIET] Diets 12/20/17 Dinner Active Assessment/Plan - Assessment and Plan (Free Text) Assessment: This is a 77yo female with history of hypertension, COPD, breast cancer s/p lumpectomy that presented to same day 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 During the procedure, patient experienced a significant amount of bleeding which was treated with a combination of clipping , electrocautery and epinephrine. Bleeding was significantly reduced however patient was subsequently admitted to ICU for close observation. Patient was admitted to ICU due to SBP 220/140s initially on cardene drip x 1 - 2 hours- now normotensive; patient now in ATN with CRE of 6.8. Returned to OR 12/18/17 due to increasing free air noted on repeat CT scan ; s/p ex lap primary repair of duodenal perforation, jourdan patch. Omentectomy. Right shiley catheter placed - 12/20. Dialysis 12/20 and 12/21. 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 Alatorre - Previous hemorrhage - stabilized with a combination of clipping, electrocautery and epinephrine. - Started on PPI drip, IVF - Ct chest, abdomen, pelvis 2/2 abdominal pain and guarding on exam: Mild increase in the extent of pneumoperitoneum. Increasing ascites. Extensive gas adjacent to 2nd duodenum and nasim hepatis. Status post cholecystectomy. Nasogastric tube. Fluid in retroperitoneum and gas in perinephric space on right side. Cannot rule out pancreatitis. Please correlate. Trace right pleural effusion. No pulmonary infiltrate. - Upper GI series - Free air noted - As per surgery patient is for OR due to increasing free air ; s/p ex lap primary repair of duodenal perforation, jourdan patch. Omentectomy. 12/18 A: Pancreatic nodule - Questionable 9 mm rounded fluid density mass in the pancreatic body. This was not clearly appreciated on prior CT examination of 12/16/2017. Further evaluation is advised when clinically feasible with multiphasic contrast- enhanced CT. A: Transaminitis, Elevated T. Bili - downtrending - Viral hepatitis - negative - Abominal US - Diffuse increased echogenicity in the liver may reflect hepatic steatosis however parenchymal infectious/ inflammatory etiologies cannot be entirely excluded. Clinical and laboratory correlation is advised. Mild perihepatic ascites. Endo: A: Thyroid Nodule - There is a 1.9 cm mass in the lower pole of the left thyroid lobe. - Correlate with thyroid ultrasound examination. A: Hypocalcemia - Repleting IV A: IGT - HgA1c 5.9 Renal: A: ARF - Improving with HD - 2/2 ATN - Avoid nephrotoxic drugs - Abdominal US- no sign of renal obstruction - Changed zosyn to Merro renally dosed - Inserted bruce - Right Shiley catheter inserted 12/20 - Scheduled for dialysis 12/20 and 12/21 ID: A: Bandemia - resolving ID Consulted - Dr. Quinonez - Afebrile, vitals stable, no leukocytosis, no source of infection - Patient was prince-cultured 12/17/17 - all negative - Bandemia increasing- 61, Procal - 12.04, lactate 2.4--> 1.7 - Changed zosyn to Meropenem renally dosed - Started 12/20/17 linezolid (GPC coverage) and micafungin 12/21 (fungal coverage ) -- gross abdominal spillage, de-escalate as per intra-op cultures Heme/ Onc: A: Anemia - Hemoglobin baseline 13-14 - CT chest, ab, pelvis - no evidence of internal hemorrhage - s/p 1 unit 12/20 - Continue to monitor A: Hx breast cancer s/p lumpectomy Prophylaxis - Protonix Drip - SCDs, VTE c/i post op / concern for bleeding - Right PICC line, Right shiley cath inserted 12/20 - Currently on PPN DW Dr. Christine GarciaEstefania zavala DO, PGY-1 <Milton Garcia M - Last Filed: 12/21/17 14:50> CCU Objective - Vital Signs / Intake & Output Vital Signs (Last 4 hours): Vital Signs Temp Pulse Resp BP Pulse Ox 12/21/17 13:00 104 H 15 123/55 L 96 12/21/17 12:00 101.2 F H 103 H 16 118/54 L 97 12/21/17 11:00 105 H 15 132/54 L 96 Intake and Output (Last 8hrs): Intake & Output 12/20/17 12/21/17 12/21/17 22:59 06:59 14:59 Intake Total 2237.6 2062.3 1134.7 Output Total 2045 230 Balance 192.6 1832.3 1134.7 Weight 235 lb 7.612 oz 237 lb Intake: IV 250 Intake, IV Amount 1337.6 2062.3 1134.7 Left Distal Port Forearm 100 400 Left Forearm 32.1 96.3 10.7 Right Distal Port PICC 30 90 60 Right PICC 420 720 560 left AC y port 53.5 right picc 2nd port 702 756 504 Blood Product 650 Red Blood Cells Cpd As1 325 Lr Unit [id number] Output: Drainage 115 80 KORI 1 55 60 KORI 2 60 20 Urine 80 150 Urethral (Bruce) 80 150 Other 1850 Other: # Bowel Movements 1 1 - Medications Active Medications: Active Medications Generic Name Dose Route Start Last Admin Trade Name Freq PRN Reason Stop Dose Admin Acetaminophen 650 mg 12/18/17 18:04 12/21/17 12:23 Tylenol 650 Mg Supp SC 650 mg Q4 PRN Administration Fever >100.4 F Albuterol/Ipratropium 3 ml 12/16/17 12:03 12/21/17 14:05 Duoneb 3 Mg/0.5 Mg (3 Ml) Ud INH 3 ml RQ4 PRN Administration Shortness of Breath Dextrose 0 ml 12/16/17 12:08 Dextrose 50% Inj IV STAT PRN Hypoglycemia Protocol Protocol Dextrose 15 gm 12/16/17 12:08 Glutose 15 PO ONCE PRN Hypoglycemia Protocol Protocol Glucagon 1 mg 12/16/17 12:08 Glucagen Diagnostic Kit IM STAT PRN Hypoglycemia Protocol Protocol Heparin Sodium (Porcine) 5,000 units 12/20/17 06:00 12/20/17 14:30 Heparin SC Not Given Q8 FESTUS Hydromorphone HCl 0.5 mg 12/17/17 09:53 12/18/17 13:04 Dilaudid IVP 0.5 mg Q4H PRN Administration Pain, severe (8-10) Pantoprazole Sodium 80 mg/ 100 mls @ 10 mls/hr 12/16/17 09:35 12/21/17 03:39 Sodium Chloride IV 10 mls/hr .Q10H FESTUS Administration 8 MG/HR Dextrose 1,000 mls @ 0 mls/hr 12/16/17 12:08 Dextrose 5% In Water 1000 Ml IV .Q0M PRN Hypoglycemia Protocol Protocol Per Protocol Meropenem 500 mg/ Sodium 100 mls @ 100 mls/hr 12/18/17 10:00 12/21/17 09:34 Chloride IVPB 100 mls/hr Q12 FESTUS Administration Protocol BUPIVACAINE 0.125%/0.9% NACL 600 mls @ 4 mls/hr 12/18/17 16:00 12/18/17 18:20 Bupivacaine-Ns 0.125% On-Q Roll Forming Machine Set Up Operator IJ 12/24/17 21:59 Not Given ONCE ONE Amino Acids 1,000 mls @ 84 mls/hr 12/21/17 06:30 12/21/17 06:22 Clinimix 4.25/5 % "E" (1000 Ml) IV 12/21/17 18:24 84 mls/hr .[id number] ONE Administration Micafungin Sodium 100 mg/ 100 mls @ 100 mls/hr 12/21/17 10:00 12/21/17 09:33 Sodium Chloride IV 100 mls/hr Q24H FESTUS Administration Protocol Linezolid 600 mg in 300 mls @ 200 mls/hr 12/20/17 22:00 12/21/17 09:36 Zyvox 600mg/300ml D5w IVPB 200 mls/hr Q12 FESTUS Administration Protocol BUPIVACAINE 0.125%/0.9% NACL 600 mls @ 4 mls/hr 12/21/17 10:00 12/21/17 10:08 Bupivacaine-Ns 0.125% On-Q Roll Forming Machine Set Up Operator IJ 12/27/17 15:59 4 mls/hr ONCE ONE Administration Propofol 1,000 mg in 100 mls @ 3.225 mls/hr 12/21/17 09:24 Diprivan IVP .Q24H PRN TITRATE PER MD ORDER Protocol 5 MCG/KG/MIN Multivitamins/Vitamin C 10 ml/ 1,010 mls @ 42 mls/hr 12/21/17 18:00 Amino Acids IV 12/22/17 17:59 .Q24H ONE Insulin Human Regular 0 unit 12/19/17 00:00 12/21/17 06:22 Novolin R SC Not Given Q6 [facility] Protocol Ondansetron HCl 4 mg 12/18/17 18:03 Zofran Inj IVP Q4 PRN Nausea/Vomiting - Patient Studies Lab Studies: Microbiology Studies 12/17/17 16:00 Blood Culture - Preliminary Blood-Venous NO GROWTH AFTER 3 DAYS 12/17/17 16:40 Blood Culture - Preliminary Blood-Venous NO GROWTH AFTER 3 DAYS Lab Studies 12/21/17 12/21/17 12/21/17 Range/Units 12:04 06:13 06:13 WBC 7.6 D (4.8-10.8) K/uL RBC 2.85 L (3.80-5.20) Mil/uL Hgb 8.3 L (11.0-16.0) g/dL Hct 24.3 L (34.0-47.0) % MCV 85.1 (81.0-99.0) fL MCH 29.3 (27.0-31.0) pg MCHC 34.4 (33.0-37.0) g/dL RDW 14.3 (11.5-14.5) % Plt Count 127 L (130-400) K/uL MPV 10.6 (7.2-11.7) fL Neut % (Auto) 86.2 H (50.0-75.0) % Lymph % (Auto) 7.6 L (20.0-40.0) % [place] % (Auto) 4.5 (0.0-10.0) % Eos % (Auto) 1.6 (0.0-4.0) % Baso % (Auto) 0.1 (0.0-2.0) % Neut # (Auto) 6.5 (1.8-7.0) K/uL Lymph # (Auto) 0.6 L (1.0-4.3) K/uL [place] # (Auto) 0.3 (0.0-0.8) K/uL Eos # (Auto) 0.1 (0.0-0.7) K/uL Baso # (Auto) 0.0 (0.0-0.2) K/uL Neutrophils % (Manual) 59 (50-75) % Band Neutrophils % 23 H* (0-2) % Lymphocytes % (Manual) 13 L (20-40) % Monocytes % (Manual) 3 (0-10) % Eosinophils % (Manual) 1 (0-4) % Plasma Cell % (Manual) 1 H (0-0) Toxic Granulation Present Platelet Estimate Normal (NORMAL) Large Platelets Present Polychromasia Slight Hypochromasia (manual) Slight Poikilocytosis (manual Slight Basophilic Stippling Slight Anisocytosis (manual) Slight Target Cells Slight Ovalocytes Slight Puncture Site pCO2 (35-45) mm/Hg pO2 (80-100) mm/Hg HCO3 (21-28) mmol/L ABG pH (7.35-7.45) ABG Total CO2 (22-28) mmol/L ABG O2 Saturation (95-98) % ABG Base Excess (-2.0-3.0) mmol/L ABG Hemoglobin (11.7-17.4) g/dL ABG Carboxyhemoglobin (0.5-1.5) % POC ABG HHb (Measured) (0.0-5.0) % ABG Methemoglobin (0.0-3.0) % Richard Test A-a O2 Difference mm/Hg Respiratory Index Hgb O2 Saturation (95.0-98.0) % Vent Mode Mechanical Rate FiO2 % Tidal Volume PEEP Sodium 143 (132-148) mmol/L Potassium 4.2 (3.6-5.2) mmol/L Chloride 102 (98-107) mmol/L Carbon Dioxide 22 (22-30) mmol/L Anion Gap 23 H (10-20) BUN 80 H (7-17) mg/dL Creatinine 6.0 H (0.7-1.2) mg/dL Est GFR ( Amer) 8 Est GFR (Non-Af Amer) 7 POC Glucose (mg/dL) 110 (65-110) mg/dL Random Glucose 96 (65-105) mg/dL Calcium 6.2 L (8.6-10.4) mg/dl Phosphorus 4.9 H (2.5-4.5) mg/dL Magnesium 2.2 (1.6-2.3) mg/dL Total Bilirubin 0.7 (0.2-1.3) mg/dL AST 47 H (14-36) U/L ALT 27 (9-52) U/L Alkaline Phosphatase 32 L (38-126) U/L Total Protein 5.8 L (6.3-8.3) g/dL Albumin 3.6 (3.5-5.0) g/dL Globulin 2.2 (2.2-3.9) gm/dL Albumin/Globulin Ratio 1.6 (1.0-2.1) 12/21/17 12/21/17 12/20/17 Range/Units 05:05 04:45 23:31 WBC (4.8-10.8) K/uL RBC (3.80-5.20) Mil/uL Hgb (11.0-16.0) g/dL Hct (34.0-47.0) % MCV (81.0-99.0) fL MCH (27.0-31.0) pg MCHC (33.0-37.0) g/dL RDW (11.5-14.5) % Plt Count (130-400) K/uL MPV (7.2-11.7) fL Neut % (Auto) (50.0-75.0) % Lymph % (Auto) (20.0-40.0) % [place] % (Auto) (0.0-10.0) % Eos % (Auto) (0.0-4.0) % Baso % (Auto) (0.0-2.0) % Neut # (Auto) (1.8-7.0) K/uL Lymph # (Auto) (1.0-4.3) K/uL [place] # (Auto) (0.0-0.8) K/uL Eos # (Auto) (0.0-0.7) K/uL Baso # (Auto) (0.0-0.2) K/uL Neutrophils % (Manual) (50-75) % Band Neutrophils % (0-2) % Lymphocytes % (Manual) (20-40) % Monocytes % (Manual) (0-10) % Eosinophils % (Manual) (0-4) % Plasma Cell % (Manual) (0-0) Toxic Granulation Platelet Estimate (NORMAL) Large Platelets Polychromasia Hypochromasia (manual) Poikilocytosis (manual Basophilic Stippling Anisocytosis (manual) Target Cells Ovalocytes Puncture Site Rr pCO2 47 H (35-45) mm/Hg pO2 103 H (80-100) mm/Hg HCO3 22.9 (21-28) mmol/L ABG pH 7.31 L (7.35-7.45) ABG Total CO2 25.1 (22-28) mmol/L ABG O2 Saturation 99.1 H (95-98) % ABG Base Excess -2.6 L (-2.0-3.0) mmol/L ABG Hemoglobin 8.8 L (11.7-17.4) g/dL ABG Carboxyhemoglobin 1.5 (0.5-1.5) % POC ABG HHb (Measured) 0.9 (0.0-5.0) % ABG Methemoglobin 1.3 (0.0-3.0) % Richard Test Pos A-a O2 Difference 266.0 mm/Hg Respiratory Index 2.6 Hgb O2 Saturation 96.2 (95.0-98.0) % Vent Mode Prvc Mechanical Rate 14 FiO2 60.0 % Tidal Volume 500 PEEP 5 Sodium (132-148) mmol/L Potassium (3.6-5.2) mmol/L Chloride (98-107) mmol/L Carbon Dioxide (22-30) mmol/L Anion Gap (10-20) BUN (7-17) mg/dL Creatinine (0.7-1.2) mg/dL Est GFR ( Amer) Est GFR (Non-Af Amer) POC Glucose (mg/dL) 121 H 133 H (65-110) mg/dL Random Glucose (65-105) mg/dL Calcium (8.6-10.4) mg/dl Phosphorus (2.5-4.5) mg/dL Magnesium (1.6-2.3) mg/dL Total Bilirubin (0.2-1.3) mg/dL AST (14-36) U/L ALT (9-52) U/L Alkaline Phosphatase (38-126) U/L Total Protein (6.3-8.3) g/dL Albumin (3.5-5.0) g/dL Globulin (2.2-3.9) gm/dL Albumin/Globulin Ratio (1.0-2.1) 12/20/17 Range/Units 17:46 WBC (4.8-10.8) K/uL RBC (3.80-5.20) Mil/uL Hgb (11.0-16.0) g/dL Hct (34.0-47.0) % MCV (81.0-99.0) fL MCH (27.0-31.0) pg MCHC (33.0-37.0) g/dL RDW (11.5-14.5) % Plt Count (130-400) K/uL MPV (7.2-11.7) fL Neut % (Auto) (50.0-75.0) % Lymph % (Auto) (20.0-40.0) % [place] % (Auto) (0.0-10.0) % Eos % (Auto) (0.0-4.0) % Baso % (Auto) (0.0-2.0) % Neut # (Auto) (1.8-7.0) K/uL Lymph # (Auto) (1.0-4.3) K/uL [place] # (Auto) (0.0-0.8) K/uL Eos # (Auto) (0.0-0.7) K/uL Baso # (Auto) (0.0-0.2) K/uL Neutrophils % (Manual) (50-75) % Band Neutrophils % (0-2) % Lymphocytes % (Manual) (20-40) % Monocytes % (Manual) (0-10) % Eosinophils % (Manual) (0-4) % Plasma Cell % (Manual) (0-0) Toxic Granulation Platelet Estimate (NORMAL) Large Platelets Polychromasia Hypochromasia (manual) Poikilocytosis (manual Basophilic Stippling Anisocytosis (manual) Target Cells Ovalocytes Puncture Site pCO2 (35-45) mm/Hg pO2 (80-100) mm/Hg HCO3 (21-28) mmol/L ABG pH (7.35-7.45) ABG Total CO2 (22-28) mmol/L ABG O2 Saturation (95-98) % ABG Base Excess (-2.0-3.0) mmol/L ABG Hemoglobin (11.7-17.4) g/dL ABG Carboxyhemoglobin (0.5-1.5) % POC ABG HHb (Measured) (0.0-5.0) % ABG Methemoglobin (0.0-3.0) % Richard Test A-a O2 Difference mm/Hg Respiratory Index Hgb O2 Saturation (95.0-98.0) % Vent Mode Mechanical Rate FiO2 % Tidal Volume PEEP Sodium (132-148) mmol/L Potassium (3.6-5.2) mmol/L Chloride (98-107) mmol/L Carbon Dioxide (22-30) mmol/L Anion Gap (10-20) BUN (7-17) mg/dL Creatinine (0.7-1.2) mg/dL Est GFR ( Amer) Est GFR (Non-Af Amer) POC Glucose (mg/dL) 109 (65-110) mg/dL Random Glucose (65-105) mg/dL Calcium (8.6-10.4) mg/dl Phosphorus (2.5-4.5) mg/dL Magnesium (1.6-2.3) mg/dL Total Bilirubin (0.2-1.3) mg/dL AST (14-36) U/L ALT (9-52) U/L Alkaline Phosphatase (38-126) U/L Total Protein (6.3-8.3) g/dL Albumin (3.5-5.0) g/dL Globulin (2.2-3.9) gm/dL Albumin/Globulin Ratio (1.0-2.1) Laboratory Results - last 24 hr 12/20/17 12/20/17 12/21/17 17:46 23:31 04:45 WBC RBC Hgb Hct MCV MCH MCHC RDW Plt Count MPV Neut % (Auto) Lymph % (Auto) [place] % (Auto) Eos % (Auto) Baso % (Auto) Neut # (Auto) Lymph # (Auto) [place] # (Auto) Eos # (Auto) Baso # (Auto) Neutrophils % (Manual) Band Neutrophils % Lymphocytes % (Manual) Monocytes % (Manual) Eosinophils % (Manual) Plasma Cell % (Manual) Toxic Granulation Platelet Estimate Large Platelets Polychromasia Hypochromasia (manual) Poikilocytosis (manual Basophilic Stippling Anisocytosis (manual) Target Cells Ovalocytes Puncture Site pCO2 pO2 HCO3 ABG pH ABG Total CO2 ABG O2 Saturation ABG Base Excess ABG Hemoglobin ABG Carboxyhemoglobin POC ABG HHb (Measured) ABG Methemoglobin Richard Test A-a O2 Difference Respiratory Index Hgb O2 Saturation Vent Mode Mechanical Rate FiO2 Tidal Volume PEEP Sodium Potassium Chloride Carbon Dioxide Anion Gap BUN Creatinine Est GFR ( Amer) Est GFR (Non-Af Amer) POC Glucose (mg/dL) 109 133 H 121 H Random Glucose Calcium Phosphorus Magnesium Total Bilirubin AST ALT Alkaline Phosphatase Total Protein Albumin Globulin Albumin/Globulin Ratio 12/21/17 12/21/17 12/21/17 05:05 06:13 06:13 WBC 7.6 D RBC 2.85 L Hgb 8.3 L Hct 24.3 L MCV 85.1 MCH 29.3 MCHC 34.4 RDW 14.3 Plt Count 127 L MPV 10.6 Neut % (Auto) 86.2 H Lymph % (Auto) 7.6 L [place] % (Auto) 4.5 Eos % (Auto) 1.6 Baso % (Auto) 0.1 Neut # (Auto) 6.5 Lymph # (Auto) 0.6 L [place] # (Auto) 0.3 Eos # (Auto) 0.1 Baso # (Auto) 0.0 Neutrophils % (Manual) 59 Band Neutrophils % 23 H* Lymphocytes % (Manual) 13 L Monocytes % (Manual) 3 Eosinophils % (Manual) 1 Plasma Cell % (Manual) 1 H Toxic Granulation Present Platelet Estimate Normal Large Platelets Present Polychromasia Slight Hypochromasia (manual) Slight Poikilocytosis (manual Slight Basophilic Stippling Slight Anisocytosis (manual) Slight Target Cells Slight Ovalocytes Slight Puncture Site Rr pCO2 47 H pO2 103 H HCO3 22.9 ABG pH 7.31 L ABG Total CO2 25.1 ABG O2 Saturation 99.1 H ABG Base Excess -2.6 L ABG Hemoglobin 8.8 L ABG Carboxyhemoglobin 1.5 POC ABG HHb (Measured) 0.9 ABG Methemoglobin 1.3 Richard Test Pos A-a O2 Difference 266.0 Respiratory Index 2.6 Hgb O2 Saturation 96.2 Vent Mode Prvc Mechanical Rate 14 FiO2 60.0 Tidal Volume 500 PEEP 5 Sodium 143 Potassium 4.2 Chloride 102 Carbon Dioxide 22 Anion Gap 23 H BUN 80 H Creatinine 6.0 H Est GFR ( Amer) 8 Est GFR (Non-Af Amer) 7 POC Glucose (mg/dL) Random Glucose 96 Calcium 6.2 L Phosphorus 4.9 H Magnesium 2.2 Total Bilirubin 0.7 AST 47 H ALT 27 Alkaline Phosphatase 32 L Total Protein 5.8 L Albumin 3.6 Globulin 2.2 Albumin/Globulin Ratio 1.6 12/21/17 12:04 WBC RBC Hgb Hct MCV MCH MCHC RDW Plt Count MPV Neut % (Auto) Lymph % (Auto) [place] % (Auto) Eos % (Auto) Baso % (Auto) Neut # (Auto) Lymph # (Auto) [place] # (Auto) Eos # (Auto) Baso # (Auto) Neutrophils % (Manual) Band Neutrophils % Lymphocytes % (Manual) Monocytes % (Manual) Eosinophils % (Manual) Plasma Cell % (Manual) Toxic Granulation Platelet Estimate Large Platelets Polychromasia Hypochromasia (manual) Poikilocytosis (manual Basophilic Stippling Anisocytosis (manual) Target Cells Ovalocytes Puncture Site pCO2 pO2 HCO3 ABG pH ABG Total CO2 ABG O2 Saturation ABG Base Excess ABG Hemoglobin ABG Carboxyhemoglobin POC ABG HHb (Measured) ABG Methemoglobin Richard Test A-a O2 Difference Respiratory Index Hgb O2 Saturation Vent Mode Mechanical Rate FiO2 Tidal Volume PEEP Sodium Potassium Chloride Carbon Dioxide Anion Gap BUN Creatinine Est GFR ( Amer) Est GFR (Non-Af Amer) POC Glucose (mg/dL) 110 Random Glucose Calcium Phosphorus Magnesium Total Bilirubin AST ALT Alkaline Phosphatase Total Protein Albumin Globulin Albumin/Globulin Ratio Critical Care Progress Note - Nutrition Nutrition: Nutrition Category Date Time Status NPO Diet [DIET] Diets 12/20/17 Dinner Active Assessment/Plan - Assessment and Plan (Free Text) Plan: Patient seen and examined at bedside. Patient underwent prolonged hospital course. 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 During endoscopy, patient had blood loss requiring epi injection. Post procedure, patient was hypertensive requireing ICu monitoring. Patient developed free air requiring surgical intervention. -Surgical omental patch repair of posterior duodenum:POST OP, NG tube to be placed by surgery, Gi series to check for leaks before starting diet -hypoxic respriatory failure;tolerating CPAP trials today -Hypocalcemia: slow improvement, replace calcium today, f/u 9 pm cmp/mag/phos -ARF: 2nd ATN 2nd sepsis/large fluid shift, HD as per renal, Fio2 decrased to 40 % -Acute sepsis with left shift:continue broad spectrum abx as per ID -Malnutrition: will benfit from IV TPN - dedicated PICC line tomorrow -BGM q6hrs, ISS aspart -dvt ppx SCD (start heparin once hemostasis ascertained by surgical team) -PUD ppx protonix -sedation switched from fentanyl to propfool, off sedation (apnea statu) -Patient remains off pressors -daughter at bedside informed of current clinical status and management - Date & Time Date: 12/21/17 Time: 14:49
[2017-12-21 08:59] LABS: BANDS 23 % (0-2); EOSINOPHIL 1 % (0-4); LYMPHOCYTE 13 % (20-40); MONOCYTE 3 % (0-10); NEUTROPHIL 59 % (50-75); PLASMACYTES 1 (0-0); PLATELET ESTIMATE NORMAL (NORMAL); TOTAL CELLS COUNTED 100
[2017-12-21 09:00] LABS: ANISOCYTOSIS SLIGHT; LARGE PLATELETS PRESENT; TOXIC GRANULATION PRESENT
[2017-12-21 09:01] LABS: HYPOCHROMIC SLIGHT; POLYCHROMIC SLIGHT
[2017-12-21 09:02] LABS: TARGET CELLS SLIGHT
[2017-12-21 09:04] LABS: OVALOCYTES SLIGHT; POIKILOCYTOSIS SLIGHT
--- NOTE | 2017-12-21 09:04 | CP.PCM.PN ---
Subjective - Date & Time of Evaluation Date of Evaluation: 12/21/17 Time of Evaluation: 09:03 - Subjective Subjective: Nephrology Consultation Note: Assessment: critical oliguric Acute Kidney Injury (N17.9) likely hemodynamic injury leading to ATN with Pulmonary congestion HAGMA with respi compensation, hypocalcemia carcinoid HTN crisis s/p resection now resolved acute abdomen with perforation s/p repair 12/18/17 (ex lap) hypertension, COPD, breast cancer s/p lumpectomy and duodenal neuroendocrine tumor Plan HD 2nd session today as ordered d/c bicarb drip. pt now on TPN No ACEI/ARB due to MANFRED. BP on low side. maintain hemodynamics stable. Monitor Input/Output, daily weights and renal function with basic metabolic panel minimize IVF agree with IV calcium gluconate supplementation as needed anemia: PRBC as needed Dose meds/antibiotics for reduced GFR and dialysis status. Avoid fleets enema/ magnesium based laxatives. Avoid nephrotoxins/NSAIDs/ iodinated contrast ( unless needed emergently) Glycemic control Further work up/management as per primary team Thanks for allowing me to participate in care of your patient. Will follow patient with you. Please call if any Qs. 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 she also had HTN crisis which was treated with cardene drip. renal consult for MANFRED eval. also found to have free air in abdomen Denies OTC/herbal meds or NSAIDs No recent iodinated contrast exposure. Noted obvious episodes of low BP (89/51). ROS: unable as pt intubated Physical Examination: General Appearance: remains intubated, ill appearing Vitals reviewed and noted as below Head; Atraumatic, normocephalic ENT: orally intubated EYES: Pupils are equal, round and reactive to light accommodation. Eye muscles and extraocular movement intact. Sclera is anicteric. Neck; supple no lymphadenopathy, no thyromegaly or bruit Lungs: Normal respiratory rate/effort. Breath sounds bilateral equal and bilateral rales + Heart: Normal rate. s1s2 normal. No rub or gallop. Extremities: no edema. No varicose veins Neurological: Patient is sedated Skin: Warm and dry. Normal turgor. No rash. Palpitation: Normal elasticity for age Abdomen: no abdominal tenderness with out guarding but no rigidity no organomegaly s/p exlap Psych: unable MSK: no joint tenderness or swelling. Digits and nails normal, no deformity : kidney or bladder not palpable. has bruce with bluish/green color urine ? due to methylene blue dye Labs/imaging reviewed. Past medical history, past surgical history, family history, social history, allergy reviewed and noted as below Family hx: no hx of CKD. Rest non-contributory renal imaging: WNL FeNa 0.7% UA 1+ protein no blood Objective - Vital Signs/Intake and Output Vital Signs (last 24 hours): Temp Pulse Resp BP Pulse Ox 99.2 F 108 H 15 113/50 L 9 L 12/21/17 08:00 12/21/17 08:00 12/21/17 08:00 12/21/17 08:00 12/21/17 08:00 Intake and Output: 12/21/17 12/21/17 06:59 18:59 Intake Total 3151.1 184.7 Output Total 2145 Balance 1006.1 184.7 - Medications Medications: Current Medications Acetaminophen (Tylenol 650 Mg Supp) 650 mg MT Q4 PRN PRN Reason: Fever >100.4 F Albuterol/Ipratropium (Duoneb 3 Mg/0.5 Mg (3 Ml) Ud) 3 ml INH RQ4 PRN PRN Reason: Shortness of Breath Last Admin: 12/21/17 07:10 Dose: 3 ml Dextrose (Dextrose 50% Inj) 0 ml IV STAT PRN; Protocol PRN Reason: Hypoglycemia Protocol Dextrose (Glutose 15) 15 gm PO ONCE PRN; Protocol PRN Reason: Hypoglycemia Protocol Glucagon (Glucagen Diagnostic Kit) 1 mg IM STAT PRN; Protocol PRN Reason: Hypoglycemia Protocol Heparin Sodium (Porcine) (Heparin) 5,000 units SC Q8 FESTUS Last Admin: 12/20/17 14:30 Dose: Not Given Hydromorphone HCl (Dilaudid) 0.5 mg IVP Q4H PRN PRN Reason: Pain, severe (8-10) Last Admin: 12/18/17 13:04 Dose: 0.5 mg Pantoprazole Sodium 80 mg/ (Sodium Chloride) 100 mls @ 10 mls/hr IV .Q10H FESTUS PRN Reason: 8 MG/HR Last Admin: 12/21/17 03:39 Dose: 10 mls/hr Dextrose (Dextrose 5% In Water 1000 Ml) 1,000 mls @ 0 mls/hr IV .Q0M PRN; Protocol; Per Protocol PRN Reason: Hypoglycemia Protocol Meropenem 500 mg/ Sodium (Chloride) 100 mls @ 100 mls/hr IVPB Q12 FESTUS PRN Reason: Protocol Last Admin: 12/20/17 21:02 Dose: 100 mls/hr BUPIVACAINE 0.125%/0.9% NACL (Bupivacaine-Ns 0.125% On-Q Calibration Engineer) 600 mls @ 4 mls/ hr IJ ONCE ONE Stop: 12/24/17 21:59 Last Admin: 12/18/17 18:20 Dose: Not Given Sodium Bicarbonate 150 meq/ (Dextrose) 1,150 mls @ 80 mls/hr IV .[id number] FESTUS Last Admin: 12/21/17 06:21 Dose: 80 mls/hr Fentanyl Citrate 2,500 mcg/ (Sodium Chloride) 250 mls @ 21.31 mls/hr IV .[id number] FESTUS; 2 MCG/KG/HR PRN Reason: Protocol Last Admin: 12/20/17 20:59 Dose: 1 mcg/kg/hr, 10.65 mls/hr Amino Acids (Clinimix 4.25/5 % "E" (1000 Ml)) 1,000 mls @ 84 mls/hr IV .[id number] ONE Stop: 12/21/17 18:24 Last Admin: 12/21/17 06:22 Dose: 84 mls/hr Micafungin Sodium 100 mg/ (Sodium Chloride) 100 mls @ 100 mls/hr IV Q24H FESTUS PRN Reason: Protocol Linezolid (Zyvox 600mg/300ml D5w) 600 mg in 300 mls @ 200 mls/hr IVPB Q12 FESTUS PRN Reason: Protocol Last Admin: 12/20/17 21:00 Dose: 200 mls/hr Calcium Gluconate 2,000 mg/ (Sodium Chloride) 270 mls @ 42 mls/hr IVPB ONCE ONE Stop: 12/21/17 16:25 BUPIVACAINE 0.125%/0.9% NACL (Bupivacaine-Ns 0.125% On-Q Calibration Engineer) 600 mls @ 4 mls/ hr IJ ONCE ONE Stop: 12/27/17 14:06 Insulin Human Regular (Novolin R) 0 unit SC Q6 FESTUS PRN Reason: Protocol Last Admin: 12/21/17 06:22 Dose: Not Given Ondansetron HCl (Zofran Inj) 4 mg IVP Q4 PRN PRN Reason: Nausea/Vomiting - Labs Labs: 12/21/17 06:13 12/21/17 06:13 PT 15.9 SECONDS (9.7-12.2) H 12/18/17 12:39 INR 1.5 12/18/17 12:39 APTT 40 SECONDS (21-34) H 12/18/17 12:39
[2017-12-21] MEDS ORDERED: Propofol 10 mg/ml 1,000 MG/100 ML VIAL IVP PRN (09:24)
[2017-12-21] MEDS: Micafungin 100 MG in Sodium Chloride 0.9% 100 ML IV SCH (09:33)
[2017-12-21] MEDS: Meropenem 500 MG in Sodium Chloride 0.9% 100 ML IVPB SCH ×2 (09:34→21:07)
[2017-12-21] MEDS: Linezolid 600 mg in D5W 300 ml 600 MG/300 ML BAG IVPB SCH ×2 (09:36→21:08)
[2017-12-21] MEDS ORDERED: BUPIVACAINE 0.125%/0.9% NACL 600 ML IJ ONE (10:00)
[2017-12-21] MEDS ORDERED: Calcium Gluconate 4.65 mEq/10 ml Inj IVP ONE (12:00)
--- NOTE | 2017-12-21 12:11 | CP.PCM.PN ---
Subjective - Date & Time of Evaluation Date of Evaluation: 12/21/17 Time of Evaluation: 11:45 - Subjective Subjective: Patient remains intubated at this time. Currently on PRVC settings Family member at bedside. Patient had HD yesterday and also another one later today. The serum and ABG bicarb were better today. Urine Output was recorded as 435 cc There was some dark serosangnous fluid in the KORI drains Objective - Vital Signs/Intake and Output Vital Signs (last 24 hours): Temp Pulse Resp BP Pulse Ox 99.2 F 105 H 15 132/54 L 96 12/21/17 08:00 12/21/17 11:00 12/21/17 11:00 12/21/17 11:00 12/21/17 11:00 Intake and Output: 12/21/17 12/21/17 06:59 18:59 Intake Total 3151.1 746.7 Output Total 2145 Balance 1006.1 746.7 - Medications Medications: Current Medications Acetaminophen (Tylenol 650 Mg Supp) 650 mg IA Q4 PRN PRN Reason: Fever >100.4 F Albuterol/Ipratropium (Duoneb 3 Mg/0.5 Mg (3 Ml) Ud) 3 ml INH RQ4 PRN PRN Reason: Shortness of Breath Last Admin: 12/21/17 07:10 Dose: 3 ml Dextrose (Dextrose 50% Inj) 0 ml IV STAT PRN; Protocol PRN Reason: Hypoglycemia Protocol Dextrose (Glutose 15) 15 gm PO ONCE PRN; Protocol PRN Reason: Hypoglycemia Protocol Glucagon (Glucagen Diagnostic Kit) 1 mg IM STAT PRN; Protocol PRN Reason: Hypoglycemia Protocol Heparin Sodium (Porcine) (Heparin) 5,000 units SC Q8 FESTUS Last Admin: 12/20/17 14:30 Dose: Not Given Hydromorphone HCl (Dilaudid) 0.5 mg IVP Q4H PRN PRN Reason: Pain, severe (8-10) Last Admin: 12/18/17 13:04 Dose: 0.5 mg Pantoprazole Sodium 80 mg/ (Sodium Chloride) 100 mls @ 10 mls/hr IV .Q10H FESTUS PRN Reason: 8 MG/HR Last Admin: 12/21/17 03:39 Dose: 10 mls/hr Dextrose (Dextrose 5% In Water 1000 Ml) 1,000 mls @ 0 mls/hr IV .Q0M PRN; Protocol; Per Protocol PRN Reason: Hypoglycemia Protocol Meropenem 500 mg/ Sodium (Chloride) 100 mls @ 100 mls/hr IVPB Q12 FESTUS PRN Reason: Protocol Last Admin: 12/21/17 09:34 Dose: 100 mls/hr BUPIVACAINE 0.125%/0.9% NACL (Bupivacaine-Ns 0.125% On-Q Tag Marker) 600 mls @ 4 mls/ hr IJ ONCE ONE Stop: 12/24/17 21:59 Last Admin: 12/18/17 18:20 Dose: Not Given Amino Acids (Clinimix 4.25/5 % "E" (1000 Ml)) 1,000 mls @ 84 mls/hr IV .[id number] ONE Stop: 12/21/17 18:24 Last Admin: 12/21/17 06:22 Dose: 84 mls/hr Micafungin Sodium 100 mg/ (Sodium Chloride) 100 mls @ 100 mls/hr IV Q24H FESTUS PRN Reason: Protocol Last Admin: 12/21/17 09:33 Dose: 100 mls/hr Linezolid (Zyvox 600mg/300ml D5w) 600 mg in 300 mls @ 200 mls/hr IVPB Q12 FESTUS PRN Reason: Protocol Last Admin: 12/21/17 09:36 Dose: 200 mls/hr Calcium Gluconate 2,000 mg/ (Sodium Chloride) 120 mls @ 42 mls/hr IVPB ONCE ONE Stop: 12/21/17 12:51 Last Admin: 12/21/17 10:58 Dose: 42 mls/hr BUPIVACAINE 0.125%/0.9% NACL (Bupivacaine-Ns 0.125% On-Q Tag Marker) 600 mls @ 4 mls/ hr IJ ONCE ONE Stop: 12/27/17 15:59 Last Admin: 12/21/17 10:08 Dose: 4 mls/hr Propofol (Diprivan) 1,000 mg in 100 mls @ 3.225 mls/hr IVP .Q24H PRN; Protocol ; 5 MCG/KG/MIN PRN Reason: TITRATE PER MD ORDER Multivitamins/Vitamin C 10 ml/ (Amino Acids) 1,010 mls @ 42 mls/hr IV .Q24H ONE Stop: 12/22/17 17:59 Insulin Human Regular (Novolin R) 0 unit SC Q6 FESTUS PRN Reason: Protocol Last Admin: 12/21/17 06:22 Dose: Not Given Ondansetron HCl (Zofran Inj) 4 mg IVP Q4 PRN PRN Reason: Nausea/Vomiting - Labs Labs: 12/21/17 06:13 12/21/17 06:13 PT 15.9 SECONDS (9.7-12.2) H 12/18/17 12:39 INR 1.5 12/18/17 12:39 APTT 40 SECONDS (21-34) H 12/18/17 12:39 - Constitutional Appears: Chronically Ill - ENT Exam ENT Exam: Mucous Membranes Moist - Respiratory Exam Respiratory Exam: Clear to Ausculation Bilateral - Cardiovascular Exam Cardiovascular Exam: REGULAR RHYTHM - GI/Abdominal Exam GI & Abdominal Exam: Soft. 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 During the procedure, patient experienced a significant amount of bleeding which was treated with a combination of clipping , electrocautery and epinephrine. Bleeding was significantly reduced however patient was subsequently admitted to ICU for close observation. She had underwent EGD/Colonoscopy on 12/05/17 due to worsening reflux symptoms with progressive substernal burning that started approximately 2 months prior. At that time, EGD/Colonsocopy was significant for duodenal nodule that was biopsied and revealed well differentiated neuroendocrine tumor. Patient was admitted to ICU due to SBP 220/140s initially on cardene drip x 1 - 2 hours- now normotensive; patient now in ATN with CRE of 4.5, bandemia downtrending with elevated procal, lactate initially 2.4 now 1.7. Returned to OR 12/18/17 due to increasing free air noted on repeat CT scan ; s/p ex lap primary repair of duodenal perforation, jourdan patch. Omentectomy." Metabolic acidosis from sepsis, duodenal perforation, acute kidney injury. 12/21: Remains on the bicarb ggt at this time. The serum bicarb was better this morning. 12/19: Today the serum bicarb is 16. The pH on ABG was 7.27, she is on D5W with NaBicarb @ 150 cc / hr 12/18: Serum bicarb was 22 yesterday now 14 this morning. Check ABG as well as a repeat CT scan of the chest abdomen and pelvis. She is on abx, however this may need to be changed if the cultures come back positive. Procalcitonin was high but the WBC was low. Afebrile. The first CT done on 12/16 reported that there was some intrapertoneal air about the 1st and 2nd duodenum extending into gall bladder fossa No hemopertinium. Acute Kidney Injury 12/21: HD cathter last night, HD yesterday and again today. 12/20: Urine out put was about 460 cc over 24hrs. Creatine remains elevated. 12/19: Creatine remains elevated, urine out put recorded was 415 12/18: Rising creatine, pending ABG shock panel. Maybe sepsis related or abdominal complications. Anemia: 12/20: Hgb dropped to 8.8, probably secondary to bleeding or dilutional from the IVF. Hypertension - currently hypotensive 12/18: Currently systolic in the low 100s. Off of cardene ggt. 12/17: Now off of the cardene ggt. Her BP systolics have been stable since yesterday afternoon. Probably the very elevated numbers were from the carcinoid tumour that is now removed. - Started on Cardene Drip - will titrate and continue to monitor Duodenal carcinoid tumor- S/P endoscopic mucosal resection 12/16/1712/19: Patient is POD 1 of exploratormy lapartomy and repair of perforation. 12/17: Blood pressures now stable, Hgb is also stable as well. Respiratory failure 12/20: Remains intubated at this time. Currently on PS settings 12/19: Currently intubated at this time 12/17: Heme/ Onc: A: Hx breast cancer s/p lumpectomy
--- NOTE | 2017-12-21 12:21 | RAD ---
HISTORY: intubated COMPARISON: 12/20/2017 FINDINGS: LUNGS: Increasing opacity throughout left lung. PLEURA: No significant pleural effusion identified, no pneumothorax apparent. CARDIOVASCULAR: ET tube tip now approximately 3.8 cm above tracheal kathy. OSSEOUS STRUCTURES: No significant abnormalities. VISUALIZED UPPER ABDOMEN: Normal. OTHER FINDINGS: None. IMPRESSION: Increasing opacity in left luba thorax. Possible infiltrate. ET tube repositioned more proximally.
--- NOTE | 2017-12-21 13:45 | RAD ---
HISTORY: s/p NGT COMPARISON: 12/21/2017 FINDINGS: LUNGS: Bandlike opacity in left apex. Decreasing overall left-sided pulmonary opacity. No right-sided opacity. PLEURA: No significant pleural effusion identified, no pneumothorax apparent. CARDIOVASCULAR: ET tube unchanged. New nasogastric tube extends to left upper quadrant of abdomen. No congestive change. Normal heart size. OSSEOUS STRUCTURES: No significant abnormalities. VISUALIZED UPPER ABDOMEN: Normal. OTHER FINDINGS: None. IMPRESSION: Improving left-sided pulmonary opacity. New nasogastric tube appropriately positioned.
[2017-12-21] MEDS ORDERED: PPN#5 IV ONE (18:00)
[2017-12-22] MEDS: (Novolin R) Insulin Human Regular 100 units/ml vial SC SCH ×4 (06:18→18:00)
[2017-12-22] MEDS: Pantoprazole 80 MG in Sodium Chloride 0.9% 100 ML IV SCH ×3 (06:20→20:57)
[2017-12-22 06:31] LABS: BASO % 0.3 % (0.0-2.0); EOS # 0.2 K/uL (0.0-0.7); EOS % 1.1 % (0.0-4.0); HEMOGLOBIN 8.3 g/dL (11.0-16.0); LYMPH # 0.7 K/uL (1.0-4.3); MEAN CELL VOLUME 84.5 fL (81.0-99.0); MEAN CORPUSCULAR HEMOGLOBIN 28.7 pg (27.0-31.0); MEAN CORPUSCULAR HGB CONC 33.9 g/dL (33.0-37.0); MEAN PLATELET VOLUME 10.5 fL (7.2-11.7); MONO # 0.6 K/uL (0.0-0.8); MONO % 4.2 % (0.0-10.0); NEUT % 89.4 % (50.0-75.0); PLATELET COUNT 140 K/uL (130-400); RED CELL DISTRIBUTION WIDTH 14.1 % (11.5-14.5); WHITE BLOOD COUNT 13.4 K/uL (4.8-10.8)
[2017-12-22 06:51] LABS: ALB/GLOB RATIO 1.3 (1.0-2.1); CALCIUM 6.8 mg/dl (8.6-10.4)
[2017-12-22 08:40] LABS: BANDS 14 % (0-2); EOSINOPHIL 1 % (0-4); LYMPHOCYTE 10 % (20-40); METAMYELOCYTE 2 % (0-0); MONOCYTE 6 % (0-10); NEUTROPHIL 67 % (50-75); PLATELET ESTIMATE NORMAL (NORMAL); TOTAL CELLS COUNTED 100
[2017-12-22 08:41] LABS: ANISOCYTOSIS SLIGHT; HYPOCHROMIC SLIGHT; LARGE PLATELETS PRESENT; POLYCHROMIC SLIGHT
[2017-12-22 08:42] LABS: TOXIC GRANULATION PRESENT
--- NOTE | 2017-12-22 09:25 | CP.PCM.PN ---
<Peewee [place] - Last Filed: 12/22/17 09:32> Subjective - Date & Time of Evaluation Date of Evaluation: 12/22/17 Time of Evaluation: 09:09 - Subjective Subjective: General Surgery Progress note for Dr. Alatorre. This 77F was seen and evaluated this Am at bedside no acute events overnight. Pt remains intubated, GCS 10T ([id number]). Drains 175cc serous, with 150 from NGT. Objective - Vital Signs/Intake and Output Vital Signs (last 24 hours): Temp Pulse Resp BP Pulse Ox 100 F H 96 H 19 115/61 99 12/22/17 08:00 12/22/17 09:00 12/22/17 09:00 12/22/17 08:53 12/22/17 09:00 Intake and Output: 12/22/17 12/22/17 06:59 18:59 Intake Total 1318 52 Output Total 2595 25 Balance -1277 27 - Medications Medications: Current Medications Acetaminophen (Tylenol 650 Mg Supp) 650 mg [place] Q4 PRN PRN Reason: Fever >100.4 F Last Admin: 12/21/17 12:23 Dose: 650 mg Albuterol/Ipratropium (Duoneb 3 Mg/0.5 Mg (3 Ml) Ud) 3 ml INH RQ4 PRN PRN Reason: Shortness of Breath Last Admin: 12/21/17 14:05 Dose: 3 ml Dextrose (Dextrose 50% Inj) 0 ml IV STAT PRN; Protocol PRN Reason: Hypoglycemia Protocol Dextrose (Glutose 15) 15 gm PO ONCE PRN; Protocol PRN Reason: Hypoglycemia Protocol Glucagon (Glucagen Diagnostic Kit) 1 mg IM STAT PRN; Protocol PRN Reason: Hypoglycemia Protocol Heparin Sodium (Porcine) (Heparin) 5,000 units SC Q8 FESTUS Last Admin: 12/22/17 06:17 Dose: 5,000 units Hydromorphone HCl (Dilaudid) 0.5 mg IVP Q4H PRN PRN Reason: Pain, severe (8-10) Last Admin: 12/18/17 13:04 Dose: 0.5 mg Pantoprazole Sodium 80 mg/ (Sodium Chloride) 100 mls @ 10 mls/hr IV .Q10H FESTUS PRN Reason: 8 MG/HR Last Admin: 12/22/17 06:20 Dose: 10 mls/hr Dextrose (Dextrose 5% In Water 1000 Ml) 1,000 mls @ 0 mls/hr IV .Q0M PRN; Protocol; Per Protocol PRN Reason: Hypoglycemia Protocol Meropenem 500 mg/ Sodium (Chloride) 100 mls @ 100 mls/hr IVPB Q12 FESTUS PRN Reason: Protocol Last Admin: 12/21/17 21:07 Dose: 100 mls/hr BUPIVACAINE 0.125%/0.9% NACL (Bupivacaine-Ns 0.125% On-Q Bottle Capping Machine Operator) 600 mls @ 4 mls/ hr IJ ONCE ONE Stop: 12/24/17 21:59 Last Admin: 12/18/17 18:20 Dose: Not Given Micafungin Sodium 100 mg/ (Sodium Chloride) 100 mls @ 100 mls/hr IV Q24H FESTUS PRN Reason: Protocol Last Admin: 12/21/17 09:33 Dose: 100 mls/hr Linezolid (Zyvox 600mg/300ml D5w) 600 mg in 300 mls @ 200 mls/hr IVPB Q12 FESTUS PRN Reason: Protocol Last Admin: 12/21/17 21:08 Dose: 200 mls/hr BUPIVACAINE 0.125%/0.9% NACL (Bupivacaine-Ns 0.125% On-Q Bottle Capping Machine Operator) 600 mls @ 4 mls/ hr IJ ONCE ONE Stop: 12/27/17 15:59 Last Admin: 12/21/17 10:08 Dose: 4 mls/hr Propofol (Diprivan) 1,000 mg in 100 mls @ 3.225 mls/hr IVP .Q24H PRN; Protocol ; 5 MCG/KG/MIN PRN Reason: TITRATE PER MD ORDER Multivitamins/Vitamin C 10 ml/ (Amino Acids) 1,010 mls @ 42 mls/hr IV .Q24H ONE Stop: 12/22/17 17:59 Last Admin: 12/21/17 17:07 Dose: 42 mls/hr Insulin Human Regular (Novolin R) 0 unit SC Q6 FESTUS PRN Reason: Protocol Last Admin: 12/22/17 06:18 Dose: Not Given - Labs Labs: 12/22/17 06:21 12/22/17 06:21 PT 15.9 SECONDS (9.7-12.2) H 12/18/17 12:39 INR 1.5 12/18/17 12:39 APTT 40 SECONDS (21-34) H 12/18/17 12:39 - Constitutional Appears: Non-toxic - Head Exam Head Exam: ATRAUMATIC - Eye Exam Eye Exam: EOMI, Normal appearance - ENT Exam ENT Exam: Mucous Membranes Moist - Respiratory Exam Additional comments: Intubated - Cardiovascular Exam Cardiovascular Exam: +S1, +S2 - GI/Abdominal Exam GI & Abdominal Exam: Soft Additional comments: Dressing CDI, drains 175cc total over 24 hours, Soft, non rigid abdomen, no signs of tenderness - Neurological Exam Neurological Exam: Alert - Psychiatric Exam Additional comments: Unable to assess - Skin Skin Exam: Normal Color, Warm Assessment and Plan - Assessment and Plan (Free Text) Assessment: 77F presented to same day 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 Pt is s/p EGD/EUS with EMR complicated by bleeding and perforation s/p clip placement x 7, epi injection, and bipolar cautery. POD 4 s/p exploratory laparotomy primary repair of duodenal perf and jourdan patch Increased Leukocytosis 7.6-->13.4 Drain Output decreasing 375 --> 165/24 hr Plan: NPO NGT to suction Monitor dressing KORI outputs Continue TPN Dialysis per nephro Continue ABX per ID D/W Dr. Celi [place] PGY2 <Deion Alatorre - Last Filed: 12/23/17 18:15> Objective - Vital Signs/Intake and Output Vital Signs (last 24 hours): Temp Pulse Resp BP Pulse Ox 99.4 F 110 H 29 H 143/54 L 97 12/23/17 16:45 12/23/17 17:59 12/23/17 17:59 12/23/17 18:01 12/23/17 17:59 Intake and Output: 12/23/17 12/23/17 06:59 18:59 Intake Total 1076 1012 Output Total 850 605 Balance 226 407 - Medications Medications: Current Medications Acetaminophen (Tylenol 325mg Tab) 650 mg PO Q6 PRN PRN Reason: Fever >100.4 F Albuterol/Ipratropium (Duoneb 3 Mg/0.5 Mg (3 Ml) Ud) 3 ml INH RQ4 PRN PRN Reason: Shortness of Breath Last Admin: 12/21/17 14:05 Dose: 3 ml Dextrose (Dextrose 50% Inj) 0 ml IV STAT PRN; Protocol PRN Reason: Hypoglycemia Protocol Dextrose (Glutose 15) 15 gm PO ONCE PRN; Protocol PRN Reason: Hypoglycemia Protocol Glucagon (Glucagen Diagnostic Kit) 1 mg IM STAT PRN; Protocol PRN Reason: Hypoglycemia Protocol Heparin Sodium (Porcine) (Heparin) 5,000 units SC Q8 FESTUS Last Admin: 12/23/17 13:49 Dose: 5,000 units Hydromorphone HCl (Dilaudid) 0.5 mg IVP Q4H PRN PRN Reason: Pain, severe (8-10) Last Admin: 12/18/17 13:04 Dose: 0.5 mg Dextrose (Dextrose 5% In Water 1000 Ml) 1,000 mls @ 0 mls/hr IV .Q0M PRN; Protocol; Per Protocol PRN Reason: Hypoglycemia Protocol Meropenem 500 mg/ Sodium (Chloride) 100 mls @ 100 mls/hr IVPB Q12 FESTUS PRN Reason: Protocol Last Admin: 12/23/17 09:46 Dose: 100 mls/hr BUPIVACAINE 0.125%/0.9% NACL (Bupivacaine-Ns 0.125% On-Q Bottle Capping Machine Operator) 600 mls @ 4 mls/ hr IJ ONCE ONE Stop: 12/24/17 21:59 Last Admin: 12/18/17 18:20 Dose: Not Given Micafungin Sodium 100 mg/ (Sodium Chloride) 100 mls @ 100 mls/hr IV Q24H FESTUS PRN Reason: Protocol Last Admin: 12/23/17 10:45 Dose: 100 mls/hr Linezolid (Zyvox 600mg/300ml D5w) 600 mg in 300 mls @ 200 mls/hr IVPB Q12 FESTUS PRN Reason: Protocol Last Admin: 12/23/17 16:43 Dose: 200 mls/hr BUPIVACAINE 0.125%/0.9% NACL (Bupivacaine-Ns 0.125% On-Q Bottle Capping Machine Operator) 600 mls @ 4 mls/ hr IJ ONCE ONE Stop: 12/27/17 15:59 Last Admin: 12/21/17 10:08 Dose: 4 mls/hr Sodium Chloride 35 meq/Magnesium Sulfate 3 meq/Calcium Gluconate 4.5 meq/ Multivitamins/Vitamin C 10 ml/Heparin Sodium (Porcine) 1, 000 units/ Amino Acids 1,030.1663 mls @ 42 mls/hr IV .Q24H [facility] Stop: 12/24/17 17:59 Last Admin: 12/23/17 17:35 Dose: 42 mls/hr Insulin Human Regular (Novolin R) 0 unit SC Q6 FESTUS PRN Reason: Protocol Last Admin: 12/23/17 12:10 Dose: Not Given Pantoprazole Sodium (Protonix Inj) 40 mg IVP Q12H FESTUS Saccharomyces Boulardii (Florastor) 250 mg PO Q12 FESTUS - Labs Labs: 12/23/17 05:37 12/23/17 05:38 PT 15.9 SECONDS (9.7-12.2) H 12/18/17 12:39 INR 1.5 12/18/17 12:39 APTT 40 SECONDS (21-34) H 12/18/17 12:39 Attending/Attestation - Attestation I have fully participated in the care of the patient.: Yes I have reviewed all pertinent clinical information, including history, physical exam and plan: Yes Notes (Text): Pt is stable clinically C.w IV antibiotics Possible weaning and extubation Plan d.w pt in detail
--- NOTE | 2017-12-22 09:44 | RAD ---
HISTORY: Intubated. December 21, 2017. COMPARISON: No prior. FINDINGS: LUNGS: Stable infiltrates PLEURA: No significant pleural effusion identified, no pneumothorax apparent. CARDIOVASCULAR: Cardiomegaly. No evidence of acute, significant cardiovascular disease. OSSEOUS STRUCTURES: No significant abnormalities. VISUALIZED UPPER ABDOMEN: Normal. OTHER FINDINGS: Stable, satisfactory position ventilatory, vascular and nasogastric apparatus. IMPRESSION: No significant interval change compared to the prior examination(s).
[2017-12-22] MEDS: Meropenem 500 MG in Sodium Chloride 0.9% 100 ML IVPB SCH ×2 (10:03→21:07)
[2017-12-22] MEDS: Linezolid 600 mg in D5W 300 ml 600 MG/300 ML BAG IVPB SCH ×2 (10:04→21:06)
[2017-12-22] MEDS: Micafungin 100 MG in Sodium Chloride 0.9% 100 ML IV SCH (10:04)
--- NOTE | 2017-12-22 10:57 | CP.PCM.PN ---
Subjective - Date & Time of Evaluation Date of Evaluation: 12/22/17 Time of Evaluation: 10:30 - Subjective Subjective: Patient was seen and examined by me Family member faithfully at bedside and we talked and discussed Patient remains intubated at this time, currently on a CPAP trial. She was able to open her eyes when I called out her name. Now off of Bicarb ggt. Started on tube feeds The serum bicarb is ok today. She has been getting HD. The urine output is still low 330 cc recorded Objective - Vital Signs/Intake and Output Vital Signs (last 24 hours): Temp Pulse Resp BP Pulse Ox 100 F H 96 H 19 115/61 99 12/22/17 08:00 12/22/17 09:00 12/22/17 09:00 12/22/17 08:53 12/22/17 09:00 Intake and Output: 12/22/17 12/22/17 06:59 18:59 Intake Total 1318 52 Output Total 2595 25 Balance -1277 27 - Medications Medications: Current Medications Acetaminophen (Tylenol 650 Mg Supp) 650 mg [place] Q4 PRN PRN Reason: Fever >100.4 F Last Admin: 12/21/17 12:23 Dose: 650 mg Albuterol/Ipratropium (Duoneb 3 Mg/0.5 Mg (3 Ml) Ud) 3 ml INH RQ4 PRN PRN Reason: Shortness of Breath Last Admin: 12/21/17 14:05 Dose: 3 ml Dextrose (Dextrose 50% Inj) 0 ml IV STAT PRN; Protocol PRN Reason: Hypoglycemia Protocol Dextrose (Glutose 15) 15 gm PO ONCE PRN; Protocol PRN Reason: Hypoglycemia Protocol Glucagon (Glucagen Diagnostic Kit) 1 mg IM STAT PRN; Protocol PRN Reason: Hypoglycemia Protocol Heparin Sodium (Porcine) (Heparin) 5,000 units SC Q8 FESTUS Last Admin: 12/22/17 06:17 Dose: 5,000 units Hydromorphone HCl (Dilaudid) 0.5 mg IVP Q4H PRN PRN Reason: Pain, severe (8-10) Last Admin: 12/18/17 13:04 Dose: 0.5 mg Pantoprazole Sodium 80 mg/ (Sodium Chloride) 100 mls @ 10 mls/hr IV .Q10H FESTUS PRN Reason: 8 MG/HR Last Admin: 12/22/17 06:20 Dose: 10 mls/hr Dextrose (Dextrose 5% In Water 1000 Ml) 1,000 mls @ 0 mls/hr IV .Q0M PRN; Protocol; Per Protocol PRN Reason: Hypoglycemia Protocol Meropenem 500 mg/ Sodium (Chloride) 100 mls @ 100 mls/hr IVPB Q12 FESTUS PRN Reason: Protocol Last Admin: 12/22/17 10:03 Dose: 100 mls/hr BUPIVACAINE 0.125%/0.9% NACL (Bupivacaine-Ns 0.125% On-Q Novelty Balloon Assembler And Packer) 600 mls @ 4 mls/ hr IJ ONCE ONE Stop: 12/24/17 21:59 Last Admin: 12/18/17 18:20 Dose: Not Given Micafungin Sodium 100 mg/ (Sodium Chloride) 100 mls @ 100 mls/hr IV Q24H FESTUS PRN Reason: Protocol Last Admin: 12/22/17 10:04 Dose: 100 mls/hr Linezolid (Zyvox 600mg/300ml D5w) 600 mg in 300 mls @ 200 mls/hr IVPB Q12 FESTUS PRN Reason: Protocol Last Admin: 12/22/17 10:04 Dose: 200 mls/hr BUPIVACAINE 0.125%/0.9% NACL (Bupivacaine-Ns 0.125% On-Q Novelty Balloon Assembler [employer] Packer) 600 mls @ 4 mls/ hr IJ ONCE ONE Stop: 12/27/17 15:59 Last Admin: 12/21/17 10:08 Dose: 4 mls/hr Propofol (Diprivan) 1,000 mg in 100 mls @ 3.225 mls/hr IVP .Q24H PRN; Protocol ; 5 MCG/KG/MIN PRN Reason: TITRATE PER MD ORDER Multivitamins/Vitamin C 10 ml/ (Amino Acids) 1,010 mls @ 42 mls/hr IV .Q24H ONE Stop: 12/22/17 17:59 Last Admin: 12/21/17 17:07 Dose: 42 mls/hr Amino Acids (Clinimix 4.25/5 % "E" (1000 Ml)) 1,000 mls @ 42 mls/hr IV .[id number] ONE Stop: 12/23/17 17:48 Insulin Human Regular (Novolin R) 0 unit SC Q6 FESTUS PRN Reason: Protocol Last Admin: 12/22/17 06:18 Dose: Not Given - Labs Labs: 12/22/17 06:21 12/22/17 06:21 PT 15.9 SECONDS (9.7-12.2) H 12/18/17 12:39 INR 1.5 12/18/17 12:39 APTT 40 SECONDS (21-34) H 12/18/17 12:39 - Constitutional Appears: Unkempt, Chronically Ill - Head Exam Additional comments: Currently intubated - Eye Exam Eye Exam: Normal appearance - ENT Exam ENT Exam: Mucous Membranes Moist - Respiratory Exam Respiratory Exam: Decreased Breath Sounds - Cardiovascular Exam Cardiovascular Exam: REGULAR RHYTHM - GI/Abdominal Exam GI & Abdominal Exam: Soft. absent: Guarding, Rigid Additional comments: Patient has two KORI drains. One was empty when I saw it, other had a dark serosangious fluid color. The patient also has the bupivicaine pump for pain The dressing over the area of the exploratomvie laparotomy was changed this morning. Dry, clean, and intact. 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 During the procedure, patient experienced a significant amount of bleeding which was treated with a combination of clipping , electrocautery and epinephrine. Bleeding was significantly reduced however patient was subsequently admitted to ICU for close observation. She had underwent EGD/Colonoscopy on 12/05/17 due to worsening reflux symptoms with progressive substernal burning that started approximately 2 months prior. At that time, EGD/Colonsocopy was significant for duodenal nodule that was biopsied and revealed well differentiated neuroendocrine tumor. Patient was admitted to ICU due to SBP 220/140s initially on cardene drip x 1 - 2 hours- now normotensive; patient now in ATN with CRE of 4.5, bandemia downtrending with elevated procal, lactate initially 2.4 now 1.7. Returned to OR 12/18/17 due to increasing free air noted on repeat CT scan ; s/p ex lap primary repair of duodenal perforation, jourdan patch. Omentectomy." Metabolic acidosis from sepsis, duodenal perforation, acute kidney injury. 12/22: Now off of bicarb ggt. Serum bicarb is ok this morning. The HD probably helped a lot 12/21: Remains on the bicarb ggt at this time. The serum bicarb was better this morning. 12/19: Today the serum bicarb is 16. The pH on ABG was 7.27, she is on D5W with NaBicarb @ 150 cc / hr 12/18: Serum bicarb was 22 yesterday now 14 this morning. Check ABG as well as a repeat CT scan of the chest abdomen and pelvis. She is on abx, however this may need to be changed if the cultures come back positive. Procalcitonin was high but the WBC was low. Afebrile. The first CT done on 12/16 reported that there was some intrapertoneal air about the 1st and 2nd duodenum extending into gall bladder fossa No hemopertinium. Acute Kidney Injury from ATN 12/22: Urine output remains very low 12/21: HD cathter last night, HD yesterday and again today. 12/20: Urine out put was about 460 cc over 24hrs. Creatine remains elevated. 12/19: Creatine remains elevated, urine out put recorded was 415 12/18: Rising creatine, pending ABG shock panel. Maybe sepsis related or abdominal complications. Anemia: 12/20: Hgb dropped to 8.8, probably secondary to bleeding or dilutional from the IVF. Hypertension - currently hypotensive 12/18: Currently systolic in the low 100s. Off of cardene ggt. 12/17: Now off of the cardene ggt. Her BP systolics have been stable since yesterday afternoon. Probably the very elevated numbers were from the carcinoid tumour that is now removed. - Started on Cardene Drip - will titrate and continue to monitor Duodenal carcinoid tumor- S/P endoscopic mucosal resection 12/16/1712/19: Patient is POD 1 of exploratormy lapartomy and repair of perforation. 12/17: Blood pressures now stable, Hgb is also stable as well. Respiratory failure 12/20: Remains intubated at this time. Currently on PS settings 12/19: Currently intubated at this time 12/17: Heme/ Onc: A: Hx breast cancer s/p lumpectomy
--- NOTE | 2017-12-22 11:27 | CP.PCM.PN ---
<ArisBenita - Last Filed: 12/22/17 11:27> Subjective - Date & Time of Evaluation Date of Evaluation: 12/22/17 Time of Evaluation: 09:00 - Subjective Subjective: GI Fellow PGY4 Progress Note Pt seen and evaluated at bedside, pt intubated s/p repair of perforation. Pt with 1 liquid BM overnight. Pt hemodynamically stable, with no pressor support. NGT replaced by surgery. Pt with right femoral shiely placed by surgery and initiation of HD with 2.2L of fluid removed on second session. ROS:A 12pt ROS was unable to be obtained due to AMS Objective - Vital Signs/Intake and Output Vital Signs (last 24 hours): Temp Pulse Resp BP Pulse Ox 100 F H 96 H 19 115/61 99 12/22/17 08:00 12/22/17 09:00 12/22/17 09:00 12/22/17 08:53 12/22/17 09:00 Intake and Output: 12/22/17 12/22/17 06:59 18:59 Intake Total 1318 52 Output Total 2595 25 Balance -1277 27 - Medications Medications: Current Medications Acetaminophen (Tylenol 650 Mg Supp) 650 mg PA Q4 PRN PRN Reason: Fever >100.4 F Last Admin: 12/21/17 12:23 Dose: 650 mg Albuterol/Ipratropium (Duoneb 3 Mg/0.5 Mg (3 Ml) Ud) 3 ml INH RQ4 PRN PRN Reason: Shortness of Breath Last Admin: 12/21/17 14:05 Dose: 3 ml Dextrose (Dextrose 50% Inj) 0 ml IV STAT PRN; Protocol PRN Reason: Hypoglycemia Protocol Dextrose (Glutose 15) 15 gm PO ONCE PRN; Protocol PRN Reason: Hypoglycemia Protocol Glucagon (Glucagen Diagnostic Kit) 1 mg IM STAT PRN; Protocol PRN Reason: Hypoglycemia Protocol Heparin Sodium (Porcine) (Heparin) 5,000 units SC Q8 FESTUS Last Admin: 12/22/17 06:17 Dose: 5,000 units Hydromorphone HCl (Dilaudid) 0.5 mg IVP Q4H PRN PRN Reason: Pain, severe (8-10) Last Admin: 12/18/17 13:04 Dose: 0.5 mg Pantoprazole Sodium 80 mg/ (Sodium Chloride) 100 mls @ 10 mls/hr IV .Q10H FESTUS PRN Reason: 8 MG/HR Last Admin: 12/22/17 06:20 Dose: 10 mls/hr Dextrose (Dextrose 5% In Water 1000 Ml) 1,000 mls @ 0 mls/hr IV .Q0M PRN; Protocol; Per Protocol PRN Reason: Hypoglycemia Protocol Meropenem 500 mg/ Sodium (Chloride) 100 mls @ 100 mls/hr IVPB Q12 FESTUS PRN Reason: Protocol Last Admin: 12/22/17 10:03 Dose: 100 mls/hr BUPIVACAINE 0.125%/0.9% NACL (Bupivacaine-Ns 0.125% On-Q Slicer Machine Operator) 600 mls @ 4 mls/ hr IJ ONCE ONE Stop: 12/24/17 21:59 Last Admin: 12/18/17 18:20 Dose: Not Given Micafungin Sodium 100 mg/ (Sodium Chloride) 100 mls @ 100 mls/hr IV Q24H FESTUS PRN Reason: Protocol Last Admin: 12/22/17 10:04 Dose: 100 mls/hr Linezolid (Zyvox 600mg/300ml D5w) 600 mg in 300 mls @ 200 mls/hr IVPB Q12 FESTUS PRN Reason: Protocol Last Admin: 12/22/17 10:04 Dose: 200 mls/hr BUPIVACAINE 0.125%/0.9% NACL (Bupivacaine-Ns 0.125% On-Q Slicer Machine Operator) 600 mls @ 4 mls/ hr IJ ONCE ONE Stop: 12/27/17 15:59 Last Admin: 12/21/17 10:08 Dose: 4 mls/hr Propofol (Diprivan) 1,000 mg in 100 mls @ 3.225 mls/hr IVP .Q24H PRN; Protocol ; 5 MCG/KG/MIN PRN Reason: TITRATE PER MD ORDER Multivitamins/Vitamin C 10 ml/ (Amino Acids) 1,010 mls @ 42 mls/hr IV .Q24H ONE Stop: 12/22/17 17:59 Last Admin: 12/21/17 17:07 Dose: 42 mls/hr Amino Acids (Clinimix 4.25/5 % "E" (1000 Ml)) 1,000 mls @ 42 mls/hr IV .[id number] ONE Stop: 12/23/17 17:48 Insulin Human Regular (Novolin R) 0 unit SC Q6 FESTUS PRN Reason: Protocol Last Admin: 12/22/17 06:18 Dose: Not Given - Labs Labs: 12/22/17 06:21 12/22/17 06:21 PT 15.9 SECONDS (9.7-12.2) H 12/18/17 12:39 INR 1.5 12/18/17 12:39 APTT 40 SECONDS (21-34) H 12/18/17 12:39 - Constitutional Appears: Non-toxic, No Acute Distress - Head Exam Head Exam: ATRAUMATIC, NORMAL INSPECTION, NORMOCEPHALIC - Eye Exam Eye Exam: PERRL Pupil Exam: PERRL - ENT Exam ENT Exam: Mucous Membranes Dry Additional comments: ETT NGT - Neck Exam Neck Exam: Full ROM - Respiratory Exam Respiratory Exam: Rhonchi, Respiratory Distress - Cardiovascular Exam Cardiovascular Exam: Tachycardia - GI/Abdominal Exam GI & Abdominal Exam: Distended, Soft, Normal Bowel Sounds. 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 Pt is s/p EGD/EUS with EMR complicated by bleeding and perforation s/p clip placement x 7, epi injection, and bipolar cautery. 1. Duodenal perforation s/p surgical repair 2. 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 ARF, ATN on HD 4. Sepsis 5. VDRF 6. Anemia 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 and perforation that was treated with a combination of clipping, electrocautery and epinephrine - Duodenal perforation with no closure seen on repeat CT and UpperGI series, pt taken to OR with repair of perforation with jourdan patch - Anemia, H/H stable, monitor H/H, no active GI bleeding - Protonix drip - IV abx meropenema, linezolid and micfungin by ID - Pt clinically hemodynamically stable, BP on the lower side - ARF likely ATN, s/p initiation of HD 12/20/17, monitor renal function - NPO - Pt started on PPN by ICU team, will discuss with surgery on plans for starting nutritional support with tube feeds instead of PPN - Appreciate surgical consult - Will continue to follow pt closely <Johnna Tovar - Last Filed: 12/22/17 11:43> Objective - Vital Signs/Intake and Output Vital Signs (last 24 hours): Temp Pulse Resp BP Pulse Ox 100 F H 96 H 19 115/61 99 12/22/17 08:00 12/22/17 09:00 12/22/17 09:00 12/22/17 08:53 12/22/17 09:00 Intake and Output: 12/22/17 12/22/17 06:59 18:59 Intake Total 1318 52 Output Total 2595 25 Balance -1277 27 - Medications Medications: Current Medications Acetaminophen (Tylenol 650 Mg Supp) 650 mg PA Q4 PRN PRN Reason: Fever >100.4 F Last Admin: 12/21/17 12:23 Dose: 650 mg Albuterol/Ipratropium (Duoneb 3 Mg/0.5 Mg (3 Ml) Ud) 3 ml INH RQ4 PRN PRN Reason: Shortness of Breath Last Admin: 12/21/17 14:05 Dose: 3 ml Dextrose (Dextrose 50% Inj) 0 ml IV STAT PRN; Protocol PRN Reason: Hypoglycemia Protocol Dextrose (Glutose 15) 15 gm PO ONCE PRN; Protocol PRN Reason: Hypoglycemia Protocol Glucagon (Glucagen Diagnostic Kit) 1 mg IM STAT PRN; Protocol PRN Reason: Hypoglycemia Protocol Heparin Sodium (Porcine) (Heparin) 5,000 units SC Q8 FESTUS Last Admin: 12/22/17 06:17 Dose: 5,000 units Hydromorphone HCl (Dilaudid) 0.5 mg IVP Q4H PRN PRN Reason: Pain, severe (8-10) Last Admin: 12/18/17 13:04 Dose: 0.5 mg Pantoprazole Sodium 80 mg/ (Sodium Chloride) 100 mls @ 10 mls/hr IV .Q10H FESTUS PRN Reason: 8 MG/HR Last Admin: 12/22/17 06:20 Dose: 10 mls/hr Dextrose (Dextrose 5% In Water 1000 Ml) 1,000 mls @ 0 mls/hr IV .Q0M PRN; Protocol; Per Protocol PRN Reason: Hypoglycemia Protocol Meropenem 500 mg/ Sodium (Chloride) 100 mls @ 100 mls/hr IVPB Q12 FESTUS PRN Reason: Protocol Last Admin: 12/22/17 10:03 Dose: 100 mls/hr BUPIVACAINE 0.125%/0.9% NACL (Bupivacaine-Ns 0.125% On-Q Slicer Machine Operator) 600 mls @ 4 mls/ hr IJ ONCE ONE Stop: 12/24/17 21:59 Last Admin: 12/18/17 18:20 Dose: Not Given Micafungin Sodium 100 mg/ (Sodium Chloride) 100 mls @ 100 mls/hr IV Q24H FESTUS PRN Reason: Protocol Last Admin: 12/22/17 10:04 Dose: 100 mls/hr Linezolid (Zyvox 600mg/300ml D5w) 600 mg in 300 mls @ 200 mls/hr IVPB Q12 FESTUS PRN Reason: Protocol Last Admin: 12/22/17 10:04 Dose: 200 mls/hr BUPIVACAINE 0.125%/0.9% NACL (Bupivacaine-Ns 0.125% On-Q Slicer Machine Operator) 600 mls @ 4 mls/ hr IJ ONCE ONE Stop: 12/27/17 15:59 Last Admin: 12/21/17 10:08 Dose: 4 mls/hr Propofol (Diprivan) 1,000 mg in 100 mls @ 3.225 mls/hr IVP .Q24H PRN; Protocol ; 5 MCG/KG/MIN PRN Reason: TITRATE PER MD ORDER Multivitamins/Vitamin C 10 ml/ (Amino Acids) 1,010 mls @ 42 mls/hr IV .Q24H ONE Stop: 12/22/17 17:59 Last Admin: 12/21/17 17:07 Dose: 42 mls/hr Amino Acids (Clinimix 4.25/5 % "E" (1000 Ml)) 1,000 mls @ 42 mls/hr IV .[id number] ONE Stop: 12/23/17 17:48 Insulin Human Regular (Novolin R) 0 unit SC Q6 FESTUS PRN Reason: Protocol Last Admin: 12/22/17 06:18 Dose: Not Given - Labs Labs: 12/22/17 06:21 12/22/17 06:21 PT 15.9 SECONDS (9.7-12.2) H 12/18/17 12:39 INR 1.5 12/18/17 12:39 APTT 40 SECONDS (21-34) H 12/18/17 12:39 Attending/Attestation - Attestation I have personally seen and examined this patient.: Yes I have fully participated in the care of the patient.: Yes I have reviewed all pertinent clinical information, including history, physical exam and plan: Yes Notes (Text): 12/22/17 11:42 77 year old female with duodenal carcinoid s/p EMR c/b perforation now s/p laparotomy with jourdan patch closure of defect, course complicated by MANFRED 2/2 ATN now on HD but off pressors. She remains critically ill in ICU on vent. Renal failure appears to be improving. Wean from vent as tolerated. Continue broad spectrum abx. Appreciate surgical recs post op. Surgical recommendations for feeds. Rest of care as per MICU
--- NOTE | 2017-12-22 14:22 | CP.PCM.PN ---
Subjective - Date & Time of Evaluation Date of Evaluation: 12/22/17 Time of Evaluation: 14:21 - Subjective Subjective: Nephrology Consultation Note: Assessment: critical oliguric Acute Kidney Injury (N17.9) likely hemodynamic injury leading to ATN with Pulmonary congestion HAGMA with respi compensation, hypocalcemia carcinoid HTN crisis s/p resection now resolved acute abdomen with perforation s/p repair 12/18/17 (ex lap) hypertension, COPD, breast cancer s/p lumpectomy and duodenal neuroendocrine tumor Plan HD 3rd session tomorrow as ordered off bicarb drip. pt now on TPN No ACEI/ARB due to MANFRED. BP on low side. maintain hemodynamics stable. Monitor Input/Output, daily weights and renal function with basic metabolic panel minimize IVF agree with IV calcium gluconate supplementation as needed anemia: PRBC as needed Dose meds/antibiotics for reduced GFR and dialysis status. Avoid fleets enema/ magnesium based laxatives. Avoid nephrotoxins/NSAIDs/ iodinated contrast ( unless needed emergently) Glycemic control Further work up/management as per primary team Thanks for allowing me to participate in care of your patient. Will follow patient with you. Please call if any Qs. 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 she also had HTN crisis which was treated with cardene drip. renal consult for MANFRED eval. also found to have free air in abdomen Denies OTC/herbal meds or NSAIDs No recent iodinated contrast exposure. Noted obvious episodes of low BP (89/51). ROS: unable as pt intubated Physical Examination: General Appearance: remains intubated, ill appearing Vitals reviewed and noted as below Head; Atraumatic, normocephalic ENT: orally intubated EYES: Pupils are equal, round and reactive to light accommodation. Eye muscles and extraocular movement intact. Sclera is anicteric. Neck; supple no lymphadenopathy, no thyromegaly or bruit Lungs: Normal respiratory rate/effort. Breath sounds bilateral equal and bilateral rales + Heart: Normal rate. s1s2 normal. No rub or gallop. Extremities: no edema. No varicose veins Neurological: Patient is sedated Skin: Warm and dry. Normal turgor. No rash. Palpitation: Normal elasticity for age Abdomen: no abdominal tenderness with out guarding but no rigidity no organomegaly s/p exlap Psych: unable MSK: no joint tenderness or swelling. Digits and nails normal, no deformity : kidney or bladder not palpable. has bruce with bluish/green color urine ? due to methylene blue dye Labs/imaging reviewed. Past medical history, past surgical history, family history, social history, allergy reviewed and noted as below Family hx: no hx of CKD. Rest non-contributory renal imaging: WNL FeNa 0.7% UA 1+ protein no blood Objective - Vital Signs/Intake and Output Vital Signs (last 24 hours): Temp Pulse Resp BP Pulse Ox 100.1 F H 112 H 27 H 123/61 99 12/22/17 12:00 12/22/17 13:00 12/22/17 13:00 12/22/17 12:53 12/22/17 13:00 Intake and Output: 12/22/17 12/22/17 06:59 18:59 Intake Total 1318 812 Output Total 2595 225 Balance -1277 587 - Medications Medications: Current Medications Acetaminophen (Tylenol 650 Mg Supp) 650 mg NM Q4 PRN PRN Reason: Fever >100.4 F Last Admin: 12/21/17 12:23 Dose: 650 mg Albuterol/Ipratropium (Duoneb 3 Mg/0.5 Mg (3 Ml) Ud) 3 ml INH RQ4 PRN PRN Reason: Shortness of Breath Last Admin: 12/21/17 14:05 Dose: 3 ml Dextrose (Dextrose 50% Inj) 0 ml IV STAT PRN; Protocol PRN Reason: Hypoglycemia Protocol Dextrose (Glutose 15) 15 gm PO ONCE PRN; Protocol PRN Reason: Hypoglycemia Protocol Glucagon (Glucagen Diagnostic Kit) 1 mg IM STAT PRN; Protocol PRN Reason: Hypoglycemia Protocol Heparin Sodium (Porcine) (Heparin) 5,000 units SC Q8 FESTUS Last Admin: 12/22/17 13:20 Dose: 5,000 units Hydromorphone HCl (Dilaudid) 0.5 mg IVP Q4H PRN PRN Reason: Pain, severe (8-10) Last Admin: 12/18/17 13:04 Dose: 0.5 mg Pantoprazole Sodium 80 mg/ (Sodium Chloride) 100 mls @ 10 mls/hr IV .Q10H FESTUS PRN Reason: 8 MG/HR Last Admin: 12/22/17 06:20 Dose: 10 mls/hr Dextrose (Dextrose 5% In Water 1000 Ml) 1,000 mls @ 0 mls/hr IV .Q0M PRN; Protocol; Per Protocol PRN Reason: Hypoglycemia Protocol Meropenem 500 mg/ Sodium (Chloride) 100 mls @ 100 mls/hr IVPB Q12 FESTUS PRN Reason: Protocol Last Admin: 12/22/17 10:03 Dose: 100 mls/hr BUPIVACAINE 0.125%/0.9% NACL (Bupivacaine-Ns 0.125% On-Q Process Planner) 600 mls @ 4 mls/ hr IJ ONCE ONE Stop: 12/24/17 21:59 Last Admin: 12/18/17 18:20 Dose: Not Given Micafungin Sodium 100 mg/ (Sodium Chloride) 100 mls @ 100 mls/hr IV Q24H FESTUS PRN Reason: Protocol Last Admin: 12/22/17 10:04 Dose: 100 mls/hr Linezolid (Zyvox 600mg/300ml D5w) 600 mg in 300 mls @ 200 mls/hr IVPB Q12 FESTUS PRN Reason: Protocol Last Admin: 12/22/17 10:04 Dose: 200 mls/hr BUPIVACAINE 0.125%/0.9% NACL (Bupivacaine-Ns 0.125% On-Q Process Planner) 600 mls @ 4 mls/ hr IJ ONCE ONE Stop: 12/27/17 15:59 Last Admin: 12/21/17 10:08 Dose: 4 mls/hr Propofol (Diprivan) 1,000 mg in 100 mls @ 3.225 mls/hr IVP .Q24H PRN; Protocol ; 5 MCG/KG/MIN PRN Reason: TITRATE PER MD ORDER Multivitamins/Vitamin C 10 ml/ (Amino Acids) 1,010 mls @ 42 mls/hr IV .Q24H ONE Stop: 12/22/17 17:59 Last Admin: 12/21/17 17:07 Dose: 42 mls/hr Amino Acids (Clinimix 4.25/5 % "E" (1000 Ml)) 1,000 mls @ 42 mls/hr IV .[id number] ONE Stop: 12/23/17 17:48 Insulin Human Regular (Novolin R) 0 unit SC Q6 FESTUS PRN Reason: Protocol Last Admin: 12/22/17 12:00 Dose: Not Given - Labs Labs: 12/22/17 06:21 12/22/17 06:21 PT 15.9 SECONDS (9.7-12.2) H 12/18/17 12:39 INR 1.5 12/18/17 12:39 APTT 40 SECONDS (21-34) H 12/18/17 12:39
--- NOTE | 2017-12-22 15:24 | CP.PCM.PN ---
Subjective - Date & Time of Evaluation Date of Evaluation: 12/22/17 Time of Evaluation: 08:00 - Subjective Subjective: AFEB INTUBATED NAD Objective - Vital Signs/Intake and Output Vital Signs (last 24 hours): Temp Pulse Resp BP Pulse Ox 100.1 F H 106 H 26 H 127/64 98 12/22/17 12:00 12/22/17 15:00 12/22/17 15:00 12/22/17 14:53 12/22/17 15:00 Intake and Output: 12/22/17 12/22/17 06:59 18:59 Intake Total 1318 916 Output Total 2595 225 Balance -1277 691 - Medications Medications: Current Medications Acetaminophen (Tylenol 650 Mg Supp) 650 mg IN Q4 PRN PRN Reason: Fever >100.4 F Last Admin: 12/21/17 12:23 Dose: 650 mg Albuterol/Ipratropium (Duoneb 3 Mg/0.5 Mg (3 Ml) Ud) 3 ml INH RQ4 PRN PRN Reason: Shortness of Breath Last Admin: 12/21/17 14:05 Dose: 3 ml Dextrose (Dextrose 50% Inj) 0 ml IV STAT PRN; Protocol PRN Reason: Hypoglycemia Protocol Dextrose (Glutose 15) 15 gm PO ONCE PRN; Protocol PRN Reason: Hypoglycemia Protocol Glucagon (Glucagen Diagnostic Kit) 1 mg IM STAT PRN; Protocol PRN Reason: Hypoglycemia Protocol Heparin Sodium (Porcine) (Heparin) 5,000 units SC Q8 FESTUS Last Admin: 12/22/17 13:20 Dose: 5,000 units Hydromorphone HCl (Dilaudid) 0.5 mg IVP Q4H PRN PRN Reason: Pain, severe (8-10) Last Admin: 12/18/17 13:04 Dose: 0.5 mg Pantoprazole Sodium 80 mg/ (Sodium Chloride) 100 mls @ 10 mls/hr IV .Q10H FESTUS PRN Reason: 8 MG/HR Last Admin: 12/22/17 06:20 Dose: 10 mls/hr Dextrose (Dextrose 5% In Water 1000 Ml) 1,000 mls @ 0 mls/hr IV .Q0M PRN; Protocol; Per Protocol PRN Reason: Hypoglycemia Protocol Meropenem 500 mg/ Sodium (Chloride) 100 mls @ 100 mls/hr IVPB Q12 FESTUS PRN Reason: Protocol Last Admin: 12/22/17 10:03 Dose: 100 mls/hr BUPIVACAINE 0.125%/0.9% NACL (Bupivacaine-Ns 0.125% On-Q Financial Aid Director) 600 mls @ 4 mls/ hr IJ ONCE ONE Stop: 12/24/17 21:59 Last Admin: 12/18/17 18:20 Dose: Not Given Micafungin Sodium 100 mg/ (Sodium Chloride) 100 mls @ 100 mls/hr IV Q24H FESTUS PRN Reason: Protocol Last Admin: 12/22/17 10:04 Dose: 100 mls/hr Linezolid (Zyvox 600mg/300ml D5w) 600 mg in 300 mls @ 200 mls/hr IVPB Q12 FESTUS PRN Reason: Protocol Last Admin: 12/22/17 10:04 Dose: 200 mls/hr BUPIVACAINE 0.125%/0.9% NACL (Bupivacaine-Ns 0.125% On-Q Financial Aid Director) 600 mls @ 4 mls/ hr IJ ONCE ONE Stop: 12/27/17 15:59 Last Admin: 12/21/17 10:08 Dose: 4 mls/hr Propofol (Diprivan) 1,000 mg in 100 mls @ 3.225 mls/hr IVP .Q24H PRN; Protocol ; 5 MCG/KG/MIN PRN Reason: TITRATE PER MD ORDER Multivitamins/Vitamin C 10 ml/ (Amino Acids) 1,010 mls @ 42 mls/hr IV .Q24H ONE Stop: 12/22/17 17:59 Last Admin: 12/21/17 17:07 Dose: 42 mls/hr Amino Acids (Clinimix 4.25/5 % "E" (1000 Ml)) 1,000 mls @ 42 mls/hr IV .[id number] ONE Stop: 12/23/17 17:48 Insulin Human Regular (Novolin R) 0 unit SC Q6 FESTUS PRN Reason: Protocol Last Admin: 12/22/17 12:00 Dose: Not Given - Labs Labs: 12/22/17 06:21 12/22/17 06:21 PT 15.9 SECONDS (9.7-12.2) H 12/18/17 12:39 INR 1.5 12/18/17 12:39 APTT 40 SECONDS (21-34) H 12/18/17 12:39 - Constitutional Appears: Cachectic, Chronically Ill - Head Exam Head Exam: NORMOCEPHALIC - Eye Exam Eye Exam: PERRL. absent: Scleral icterus - ENT Exam ENT Exam: Mucous Membranes Dry - Neck Exam Neck Exam: absent: Lymphadenopathy - Respiratory Exam Respiratory Exam: Decreased Breath Sounds - Cardiovascular Exam Cardiovascular Exam: REGULAR RHYTHM - GI/Abdominal Exam GI & Abdominal Exam: Distended, Tenderness, Diminished Bowel Sounds - Rectal Exam Rectal Exam: Deferred - Exam Exam: NORMAL INSPECTION - Extremities Exam Extremities Exam: absent: Pedal Edema - Back Exam Back Exam: absent: CVA tenderness (L), CVA tenderness (R) - Neurological Exam Neurological Exam: Altered - Psychiatric Exam Psychiatric exam: Depressed - Skin Skin Exam: Dry Assessment and Plan - Assessment and Plan (Free Text) Plan: S/P PERF VISCUS SEPSIS RENAL FAILURE CULTURES NEG THUS FAR CONT IV RX AND WOUND CARE
[2017-12-22] MEDS: PPN#6 IV ONE ×2 (16:24→18:00)
--- NOTE | 2017-12-22 18:06 | CP.CCUPN ---
CCU Subjective - Physician Review Events Since Last Encounter (Free Text): 12/22/17 18:04 patient is awake and responding Opening eyes On ventilator Patient yesterday did not tolerate CPAP Subjective (Free Text): 12/22/17 18:05 responding to stimuli CCU Objective - Vital Signs / Intake & Output Vital Signs (Last 4 hours): Vital Signs Temp Pulse Resp BP Pulse Ox 12/22/17 17:46 100.4 F H 12/22/17 17:00 106 H 24 99 12/22/17 16:53 107 H 25 H 141/69 99 12/22/17 16:00 100.3 F H 105 H 25 H 133/72 99 12/22/17 15:53 104 H 25 H 133/72 99 12/22/17 15:00 106 H 26 H 98 12/22/17 14:53 104 H 27 H 127/64 98 Intake and Output (Last 8hrs): Intake & Output 12/22/17 12/22/17 12/22/17 06:59 14:59 22:59 Intake Total 852 864 156 Output Total 395 265 70 Balance 457 599 86 Weight 251 lb Intake: Intake, IV Amount 852 864 156 Right Distal Port PICC 90 70 30 Right PICC 300 500 right picc 2nd port 462 294 126 Output: Drainage 265 165 35 KORI 1 5 5 5 KORI 2 110 160 30 Right Nare 150 Urine 130 100 35 Urethral (Esteban) 130 100 35 Emesis 0 0 Other: # Bowel Movements 1 0 0 - Physical Exam Narrative Physical Exam (Free Text): 12/22/17 18:05 chest good air entry Regular heart sound Nontender abdomen Postoperatively Edema 1+ Head: Positive for: Atraumatic, Normocephalic, Ecchymosis Extroacular Muscles: Positive for: EOMI Conjunctiva: Positive for: Normal Mouth: Positive for: Other (INTUBATED) Nose (External): Positive for: Other (NGT in place ) Respiratory/Chest: Positive for: Clear to Auscultation. Negative for: Decreased Breath Sounds Cardiovascular: Positive for: Regular Rate and Rhythm Abdomen: Positive for: Tenderness, Normal Bowel Sounds, Guarding. Negative for : Distention Upper Extremity: Positive for: Normal Inspection, NORMAL PULSES, Neurovascularly Intact, Capillary Refill < 2s Lower Extremity: Positive for: Normal Inspection, NORMAL PULSES, Neurovascularly Intact, Capillary Refill < 2 s Neurological: Positive for: GCS=15, CN II-XII Intact Skin: Positive for: Warm, Dry, Normal Color Psychiatric: Positive for: Alert, Oriented x 3, Normal Insight, Normal Concentration - Medications Active Medications: Active Medications Generic Name Dose Route Start Last Admin Trade Name Freq PRN Reason Stop Dose Admin Acetaminophen 650 mg 12/18/17 18:04 12/22/17 17:46 Tylenol 650 Mg Supp [place] 650 mg Q4 PRN Administration Fever >100.4 F Albuterol/Ipratropium 3 ml 12/16/17 12:03 12/21/17 14:05 Duoneb 3 Mg/0.5 Mg (3 Ml) Ud INH 3 ml RQ4 PRN Administration Shortness of Breath Dextrose 0 ml 12/16/17 12:08 Dextrose 50% Inj IV STAT PRN Hypoglycemia Protocol Protocol Dextrose 15 gm 12/16/17 12:08 Glutose 15 PO ONCE PRN Hypoglycemia Protocol Protocol Glucagon 1 mg 12/16/17 12:08 Glucagen Diagnostic Kit IM STAT PRN Hypoglycemia Protocol Protocol Heparin Sodium (Porcine) 5,000 units 12/20/17 06:00 12/22/17 13:20 Heparin SC 5,000 units Q8 FESTUS Administration Hydromorphone HCl 0.5 mg 12/17/17 09:53 12/18/17 13:04 Dilaudid IVP 0.5 mg Q4H PRN Administration Pain, severe (8-10) Pantoprazole Sodium 80 mg/ 100 mls @ 10 mls/hr 12/16/17 09:35 12/22/17 06:20 Sodium Chloride IV 10 mls/hr .Q10H FESTUS Administration 8 MG/HR Dextrose 1,000 mls @ 0 mls/hr 12/16/17 12:08 Dextrose 5% In Water 1000 Ml IV .Q0M PRN Hypoglycemia Protocol Protocol Per Protocol Meropenem 500 mg/ Sodium 100 mls @ 100 mls/hr 12/18/17 10:00 12/22/17 10:03 Chloride IVPB 100 mls/hr Q12 FESTUS Administration Protocol BUPIVACAINE 0.125%/0.9% NACL 600 mls @ 4 mls/hr 12/18/17 16:00 12/18/17 18:20 Bupivacaine-Ns 0.125% On-Q Suspender Cutter IJ 12/24/17 21:59 Not Given ONCE ONE Micafungin Sodium 100 mg/ 100 mls @ 100 mls/hr 12/21/17 10:00 12/22/17 10:04 Sodium Chloride IV 100 mls/hr Q24H FESTUS Administration Protocol Linezolid 600 mg in 300 mls @ 200 mls/hr 12/20/17 22:00 12/22/17 10:04 Zyvox 600mg/300ml D5w IVPB 200 mls/hr Q12 FESTUS Administration Protocol BUPIVACAINE 0.125%/0.9% NACL 600 mls @ 4 mls/hr 12/21/17 10:00 12/21/17 10:08 Bupivacaine-Ns 0.125% On-Q Suspender Cutter IJ 12/27/17 15:59 4 mls/hr ONCE ONE Administration Propofol 1,000 mg in 100 mls @ 3.225 mls/hr 12/21/17 09:24 Diprivan IVP .Q24H PRN TITRATE PER MD ORDER Protocol 5 MCG/KG/MIN Amino Acids 1,000 mls @ 42 mls/hr 12/22/17 18:00 12/22/17 16:24 Clinimix 4.25/5 % "E" (1000 Ml) IV 12/23/17 17:48 42 mls/hr .[id number] ONE Administration Insulin Human Regular 0 unit 12/19/17 00:00 12/22/17 12:00 Novolin R SC Not Given Q6 [facility] Protocol - Patient Studies Lab Studies: Microbiology Studies 12/17/17 16:00 Blood Culture - Final Blood-Venous NO GROWTH AFTER 5 DAYS Gram Stain - Final TEST NOT PERFORMED 12/17/17 16:40 Blood Culture - Final Blood-Venous NO GROWTH AFTER 5 DAYS Gram Stain - Final TEST NOT PERFORMED Lab Studies 12/22/17 12/22/17 12/22/17 Range/Units 12:04 06:21 06:21 WBC 13.4 H D (4.8-10.8) K/uL RBC 2.90 L (3.80-5.20) Mil/uL Hgb 8.3 L (11.0-16.0) g/dL Hct 24.5 L (34.0-47.0) % MCV 84.5 (81.0-99.0) fL MCH 28.7 (27.0-31.0) pg MCHC 33.9 (33.0-37.0) g/dL RDW 14.1 (11.5-14.5) % Plt Count 140 (130-400) K/uL MPV 10.5 (7.2-11.7) fL Neut % (Auto) 89.4 H (50.0-75.0) % Lymph % (Auto) 5.0 L (20.0-40.0) % [place] % (Auto) 4.2 (0.0-10.0) % Eos % (Auto) 1.1 (0.0-4.0) % Baso % (Auto) 0.3 (0.0-2.0) % Neut # (Auto) 12.0 H (1.8-7.0) K/uL Lymph # (Auto) 0.7 L (1.0-4.3) K/uL [place] # (Auto) 0.6 (0.0-0.8) K/uL Eos # (Auto) 0.2 (0.0-0.7) K/uL Baso # (Auto) 0.0 (0.0-0.2) K/uL Neutrophils % (Manual) 67 (50-75) % Band Neutrophils % 14 H* (0-2) % Lymphocytes % (Manual) 10 L (20-40) % Monocytes % (Manual) 6 (0-10) % Eosinophils % (Manual) 1 (0-4) % Metamyelocytes % 2 H (0-0) % Toxic Granulation Present Platelet Estimate Normal (NORMAL) Large Platelets Present Polychromasia Slight Hypochromasia (manual) Slight Anisocytosis (manual) Slight Sodium 139 (132-148) mmol/L Potassium 3.7 (3.6-5.2) mmol/L Chloride 99 (98-107) mmol/L Carbon Dioxide 25 (22-30) mmol/L Anion Gap 18 (10-20) BUN 61 H (7-17) mg/dL Creatinine 5.0 H (0.7-1.2) mg/dL Est GFR ( Amer) 10 Est GFR (Non-Af Amer) 8 POC Glucose (mg/dL) 124 H (65-110) mg/dL Random Glucose 97 (65-105) mg/dL Calcium 6.8 L (8.6-10.4) mg/dl Phosphorus 4.2 (2.5-4.5) mg/dL Magnesium 2.1 (1.6-2.3) mg/dL Total Bilirubin 0.9 (0.2-1.3) mg/dL AST 47 H (14-36) U/L ALT 32 (9-52) U/L Alkaline Phosphatase 50 (38-126) U/L Total Protein 5.3 L (6.3-8.3) g/dL Albumin 3.0 L (3.5-5.0) g/dL Globulin 2.3 (2.2-3.9) gm/dL Albumin/Globulin Ratio 1.3 (1.0-2.1) 12/22/17 12/22/17 12/21/17 Range/Units 05:10 00:03 17:48 WBC (4.8-10.8) K/uL RBC (3.80-5.20) Mil/uL Hgb (11.0-16.0) g/dL Hct (34.0-47.0) % MCV (81.0-99.0) fL MCH (27.0-31.0) pg MCHC (33.0-37.0) g/dL RDW (11.5-14.5) % Plt Count (130-400) K/uL MPV (7.2-11.7) fL Neut % (Auto) (50.0-75.0) % Lymph % (Auto) (20.0-40.0) % [place] % (Auto) (0.0-10.0) % Eos % (Auto) (0.0-4.0) % Baso % (Auto) (0.0-2.0) % Neut # (Auto) (1.8-7.0) K/uL Lymph # (Auto) (1.0-4.3) K/uL [place] # (Auto) (0.0-0.8) K/uL Eos # (Auto) (0.0-0.7) K/uL Baso # (Auto) (0.0-0.2) K/uL Neutrophils % (Manual) (50-75) % Band Neutrophils % (0-2) % Lymphocytes % (Manual) (20-40) % Monocytes % (Manual) (0-10) % Eosinophils % (Manual) (0-4) % Metamyelocytes % (0-0) % Toxic Granulation Platelet Estimate (NORMAL) Large Platelets Polychromasia Hypochromasia (manual) Anisocytosis (manual) Sodium (132-148) mmol/L Potassium (3.6-5.2) mmol/L Chloride (98-107) mmol/L Carbon Dioxide (22-30) mmol/L Anion Gap (10-20) BUN (7-17) mg/dL Creatinine (0.7-1.2) mg/dL Est GFR ( Amer) Est GFR (Non-Af Amer) POC Glucose (mg/dL) 123 H 156 H 125 H (65-110) mg/dL Random Glucose (65-105) mg/dL Calcium (8.6-10.4) mg/dl Phosphorus (2.5-4.5) mg/dL Magnesium (1.6-2.3) mg/dL Total Bilirubin (0.2-1.3) mg/dL AST (14-36) U/L ALT (9-52) U/L Alkaline Phosphatase (38-126) U/L Total Protein (6.3-8.3) g/dL Albumin (3.5-5.0) g/dL Globulin (2.2-3.9) gm/dL Albumin/Globulin Ratio (1.0-2.1) Laboratory Results - last 24 hr 12/21/17 12/22/17 12/22/17 17:48 00:03 05:10 WBC RBC Hgb Hct MCV MCH MCHC RDW Plt Count MPV Neut % (Auto) Lymph % (Auto) [place] % (Auto) Eos % (Auto) Baso % (Auto) Neut # (Auto) Lymph # (Auto) [place] # (Auto) Eos # (Auto) Baso # (Auto) Neutrophils % (Manual) Band Neutrophils % Lymphocytes % (Manual) Monocytes % (Manual) Eosinophils % (Manual) Metamyelocytes % Toxic Granulation Platelet Estimate Large Platelets Polychromasia Hypochromasia (manual) Anisocytosis (manual) Sodium Potassium Chloride Carbon Dioxide Anion Gap BUN Creatinine Est GFR ( Amer) Est GFR (Non-Af Amer) POC Glucose (mg/dL) 125 H 156 H 123 H Random Glucose Calcium Phosphorus Magnesium Total Bilirubin AST ALT Alkaline Phosphatase Total Protein Albumin Globulin Albumin/Globulin Ratio 06/17/18 06/17/18 06/17/18 06:21 06:21 12:04 WBC 13.4 H D RBC 2.90 L Hgb 8.3 L Hct 24.5 L MCV 84.5 MCH 28.7 MCHC 33.9 RDW 14.1 Plt Count 140 MPV 10.5 Neut % (Auto) 89.4 H Lymph % (Auto) 5.0 L [place] % (Auto) 4.2 Eos % (Auto) 1.1 Baso % (Auto) 0.3 Neut # (Auto) 12.0 H Lymph # (Auto) 0.7 L [place] # (Auto) 0.6 Eos # (Auto) 0.2 Baso # (Auto) 0.0 Neutrophils % (Manual) 67 Band Neutrophils % 14 H* Lymphocytes % (Manual) 10 L Monocytes % (Manual) 6 Eosinophils % (Manual) 1 Metamyelocytes % 2 H Toxic Granulation Present Platelet Estimate Normal Large Platelets Present Polychromasia Slight Hypochromasia (manual) Slight Anisocytosis (manual) Slight Sodium 139 Potassium 3.7 Chloride 99 Carbon Dioxide 25 Anion Gap 18 BUN 61 H Creatinine 5.0 H Est GFR ( Amer) 10 Est GFR (Non-Af Amer) 8 POC Glucose (mg/dL) 124 H Random Glucose 97 Calcium 6.8 L Phosphorus 4.2 Magnesium 2.1 Total Bilirubin 0.9 AST 47 H ALT 32 Alkaline Phosphatase 50 Total Protein 5.3 L Albumin 3.0 L Globulin 2.3 Albumin/Globulin Ratio 1.3 Fingerstick Blood Sugar Results: 124 Review of Systems - Review of Systems Review of Systems: eview of system noted Critical Care Progress Note - Ventilator Checklist Head of Bed 30 Degrees: Yes Daily Sedation Vacation: Yes Daily Assessment of Readiness to Wean: Yes Daily Spontaneous Breathing Trial: Yes PUD Prophalyxis: Yes DVT Prophylaxis: Yes Oral Care with Chlorhexidine Gluconate {CHG}: Yes - Vent Settings MODE:: SPONT INTERMIT MECH VENT - Nutrition Nutrition: Nutrition Category Date Time Status NPO Diet [DIET] Diets 12/20/17 Dinner Active Assessment/Plan - Assessment and Plan (Free Text) Assessment: patient 77-year-old female with a perforation of the duodenum Status post surgery Acute respiratory Acute renal failure On dialysis CPAP trial unable to tolerate we will continue the current supportive treatment
[2017-12-23] MEDS: (Novolin R) Insulin Human Regular 100 units/ml vial SC SCH ×4 (00:15→18:35)
[2017-12-23] MEDS: Pantoprazole 80 MG in Sodium Chloride 0.9% 100 ML IV SCH ×2 (02:29→09:06)
[2017-12-23 04:25] LABS: ABG ALLEN TEST POS; ARTERIAL BLOOD GAS HCO3 23.8 mmol/L (21-28); ARTERIAL BLOOD GAS HEMOGLOBIN 8.7 g/dL (11.7-17.4); ARTERIAL BLOOD GAS O2 SAT 99.4 % (95-98); ARTERIAL BLOOD GAS PCO2 29 mm/Hg (35-45); ARTERIAL BLOOD GAS PH 7.48 (7.35-7.45); ARTERIAL BLOOD GAS PO2 115 mm/Hg (80-100); ARTERIAL BLOOD GAS TCO2 22.5 mmol/L (22-28)
[2017-12-23 05:48] LABS: BASO % 0.1 % (0.0-2.0); EOS # 0.2 K/uL (0.0-0.7); EOS % 1.2 % (0.0-4.0); HEMOGLOBIN 8.4 g/dL (11.0-16.0); LYMPH # 0.6 K/uL (1.0-4.3); LYMPH % 2.9 % (20.0-40.0); MEAN CELL VOLUME 84.9 fL (81.0-99.0); MEAN CORPUSCULAR HEMOGLOBIN 28.3 pg (27.0-31.0); MEAN CORPUSCULAR HGB CONC 33.4 g/dL (33.0-37.0); MEAN PLATELET VOLUME 10.4 fL (7.2-11.7); MONO # 0.6 K/uL (0.0-0.8); MONO % 3.2 % (0.0-10.0); NEUT # 18.2 K/uL (1.8-7.0); NEUT % 92.6 % (50.0-75.0); PLATELET COUNT 162 K/uL (130-400); RBC 2.97 Mil/uL (3.80-5.20); RED CELL DISTRIBUTION WIDTH 14.1 % (11.5-14.5); WHITE BLOOD COUNT 19.7 K/uL (4.8-10.8)
[2017-12-23 06:35] LABS: ALB/GLOB RATIO 1.2 (1.0-2.1); ALBUMIN 2.9 g/dL (3.5-5.0); CALCIUM 6.4 mg/dl (8.6-10.4)
[2017-12-23 08:35] LABS: ANISOCYTOSIS SLIGHT; BANDS 8 % (0-2); HYPOCHROMIC SLIGHT; LYMPHOCYTE 2 % (20-40); MONOCYTE 2 % (0-10); NEUTROPHIL 88 % (50-75); PLATELET ESTIMATE NORMAL (NORMAL); POIKILOCYTOSIS SLIGHT; TOTAL CELLS COUNTED 100
--- NOTE | 2017-12-23 09:21 | RAD ---
HISTORY: intubated COMPARISON: 12/22/2017 FINDINGS: LUNGS: Linear scar/ atelectasis in left apex, unchanged. No infiltrate. PLEURA: No significant pleural effusion identified, no pneumothorax apparent. CARDIOVASCULAR: Normal heart size. ET tube and NG tube unchanged. Right PICC catheter unchanged. OSSEOUS STRUCTURES: No significant abnormalities. VISUALIZED UPPER ABDOMEN: Normal. OTHER FINDINGS: None. IMPRESSION: No acute infiltrate. Left apical linear scar/ atelectasis. Tubes and lines unchanged.
--- NOTE | 2017-12-23 09:40 | CP.PCM.PN ---
<Benita Hurst - Last Filed: 12/23/17 09:40> Subjective - Date & Time of Evaluation Date of Evaluation: 12/23/17 Time of Evaluation: 07:00 - Subjective Subjective: GI Fellow PGY4 Progress Note Pt seen and evaluated at bedside, pt intubated s/p repair of perforation. Pt with BM overnight. Pt hemodynamically stable, with no pressor support. Pt for 4th session of HD today. Pt more alert, awake today, responding ot name and following commands. Discussed with ICU team plan to extubate. ROS:A 12pt ROS was unable to be obtained due to AMS Objective - Vital Signs/Intake and Output Vital Signs (last 24 hours): Temp Pulse Resp BP Pulse Ox 100.5 F H 103 H 25 H 130/57 L 100 12/23/17 08:00 12/23/17 09:00 12/23/17 09:00 12/23/17 08:53 12/23/17 09:00 Intake and Output: 12/23/17 12/23/17 06:59 18:59 Intake Total 1076 104 Output Total 850 95 Balance 226 9 - Medications Medications: Current Medications Acetaminophen (Tylenol 650 Mg Supp) 650 mg [place] Q4 PRN PRN Reason: Fever >100.4 F Last Admin: 12/22/17 17:46 Dose: 650 mg Albuterol/Ipratropium (Duoneb 3 Mg/0.5 Mg (3 Ml) Ud) 3 ml INH RQ4 PRN PRN Reason: Shortness of Breath Last Admin: 12/21/17 14:05 Dose: 3 ml Dextrose (Dextrose 50% Inj) 0 ml IV STAT PRN; Protocol PRN Reason: Hypoglycemia Protocol Dextrose (Glutose 15) 15 gm PO ONCE PRN; Protocol PRN Reason: Hypoglycemia Protocol Glucagon (Glucagen Diagnostic Kit) 1 mg IM STAT PRN; Protocol PRN Reason: Hypoglycemia Protocol Heparin Sodium (Porcine) (Heparin) 5,000 units SC Q8 FESTUS Last Admin: 12/23/17 06:09 Dose: 5,000 units Hydromorphone HCl (Dilaudid) 0.5 mg IVP Q4H PRN PRN Reason: Pain, severe (8-10) Last Admin: 12/18/17 13:04 Dose: 0.5 mg Pantoprazole Sodium 80 mg/ (Sodium Chloride) 100 mls @ 10 mls/hr IV .Q10H FESTUS PRN Reason: 8 MG/HR Last Admin: 12/23/17 09:06 Dose: 10 mls/hr Dextrose (Dextrose 5% In Water 1000 Ml) 1,000 mls @ 0 mls/hr IV .Q0M PRN; Protocol; Per Protocol PRN Reason: Hypoglycemia Protocol Meropenem 500 mg/ Sodium (Chloride) 100 mls @ 100 mls/hr IVPB Q12 FESTUS PRN Reason: Protocol Last Admin: 12/22/17 21:07 Dose: 100 mls/hr BUPIVACAINE 0.125%/0.9% NACL (Bupivacaine-Ns 0.125% On-Q Extension Division Director) 600 mls @ 4 mls/ hr IJ ONCE ONE Stop: 12/24/17 21:59 Last Admin: 12/18/17 18:20 Dose: Not Given Micafungin Sodium 100 mg/ (Sodium Chloride) 100 mls @ 100 mls/hr IV Q24H FESTUS PRN Reason: Protocol Last Admin: 12/22/17 10:04 Dose: 100 mls/hr Linezolid (Zyvox 600mg/300ml D5w) 600 mg in 300 mls @ 200 mls/hr IVPB Q12 FESTUS PRN Reason: Protocol Last Admin: 12/22/17 21:06 Dose: 200 mls/hr BUPIVACAINE 0.125%/0.9% NACL (Bupivacaine-Ns 0.125% On-Q Extension Division Director) 600 mls @ 4 mls/ hr IJ ONCE ONE Stop: 12/27/17 15:59 Last Admin: 12/21/17 10:08 Dose: 4 mls/hr Amino Acids (Clinimix 4.25/5 % "E" (1000 Ml)) 1,000 mls @ 42 mls/hr IV .[id number] ONE Stop: 12/23/17 17:48 Last Admin: 12/22/17 18:00 Dose: Not Given Multivitamins/Vitamin C 10 ml/ (Amino Acids) 1,010 mls @ 42 mls/hr IV .Q24H FESTUS Stop: 12/24/17 18:00 Insulin Human Regular (Novolin R) 0 unit SC Q6 FESTUS PRN Reason: Protocol Last Admin: 12/23/17 06:09 Dose: Not Given - Labs Labs: 12/23/17 05:37 06/18/18 05:38 PT 15.9 SECONDS (9.7-12.2) H 12/18/17 12:39 INR 1.5 12/18/17 12:39 APTT 40 SECONDS (21-34) H 12/18/17 12:39 - Constitutional Appears: Non-toxic, No Acute Distress, Chronically Ill - Head Exam Head Exam: ATRAUMATIC, NORMAL INSPECTION, NORMOCEPHALIC - Eye Exam Eye Exam: EOMI, Normal appearance, PERRL - ENT Exam ENT Exam: Mucous Membranes Dry Additional comments: ETT - Neck Exam Neck Exam: Full ROM - Respiratory Exam Respiratory Exam: Decreased Breath Sounds - Cardiovascular Exam Cardiovascular Exam: Tachycardia, +S1, +S2 - GI/Abdominal Exam GI & Abdominal Exam: Soft, Normal Bowel Sounds. 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 Pt is s/p EGD/EUS with EMR complicated by bleeding and perforation s/p clip placement x 7, epi injection, and bipolar cautery. 1. Duodenal perforation s/p surgical repair 2. 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 ARF, ATN on HD 4. Sepsis 5. VDRF 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 and perforation that was treated with a combination of clipping, electrocautery and epinephrine - Duodenal perforation with no closure seen on repeat CT and UpperGI series, pt taken to OR with repair of perforation with jourdan patch - Anemia, H/H stable, monitor H/H, no active GI bleeding - Protonix BID - IV abx meropenema, linezolid and micfungin by ID - Pt clinically hemodynamically stable, BP on the lower side - ARF likely ATN, s/p initiation of HD 12/20/17, monitor renal function - NPO - Pt on TPN by ICU team, will discuss with surgery on plans for starting nutritional support with tube feeds instead - Appreciate surgical consult - Plan to extubate today per ICU team - Will continue to follow pt closely <TovarJohnna pompa - Last Filed: 12/23/17 10:45> Objective - Vital Signs/Intake and Output Vital Signs (last 24 hours): Temp Pulse Resp BP Pulse Ox 100.5 F H 103 H 25 H 130/57 L 100 12/23/17 08:00 12/23/17 09:00 12/23/17 09:00 12/23/17 08:53 12/23/17 09:00 Intake and Output: 12/23/17 12/23/17 06:59 18:59 Intake Total 1076 104 Output Total 850 95 Balance 226 9 - Medications Medications: Current Medications Acetaminophen (Tylenol 650 Mg Supp) 650 mg [place] Q4 PRN PRN Reason: Fever >100.4 F Last Admin: 12/23/17 09:45 Dose: 650 mg Albuterol/Ipratropium (Duoneb 3 Mg/0.5 Mg (3 Ml) Ud) 3 ml INH RQ4 PRN PRN Reason: Shortness of Breath Last Admin: 12/21/17 14:05 Dose: 3 ml Dextrose (Dextrose 50% Inj) 0 ml IV STAT PRN; Protocol PRN Reason: Hypoglycemia Protocol Dextrose (Glutose 15) 15 gm PO ONCE PRN; Protocol PRN Reason: Hypoglycemia Protocol Glucagon (Glucagen Diagnostic Kit) 1 mg IM STAT PRN; Protocol PRN Reason: Hypoglycemia Protocol Heparin Sodium (Porcine) (Heparin) 5,000 units SC Q8 FESTUS Last Admin: 12/23/17 06:09 Dose: 5,000 units Hydromorphone HCl (Dilaudid) 0.5 mg IVP Q4H PRN PRN Reason: Pain, severe (8-10) Last Admin: 12/18/17 13:04 Dose: 0.5 mg Pantoprazole Sodium 80 mg/ (Sodium Chloride) 100 mls @ 10 mls/hr IV .Q10H FESTUS PRN Reason: 8 MG/HR Last Admin: 12/23/17 09:06 Dose: 10 mls/hr Dextrose (Dextrose 5% In Water 1000 Ml) 1,000 mls @ 0 mls/hr IV .Q0M PRN; Protocol; Per Protocol PRN Reason: Hypoglycemia Protocol Meropenem 500 mg/ Sodium (Chloride) 100 mls @ 100 mls/hr IVPB Q12 FESTUS PRN Reason: Protocol Last Admin: 12/23/17 09:46 Dose: 100 mls/hr BUPIVACAINE 0.125%/0.9% NACL (Bupivacaine-Ns 0.125% On-Q Extension Division Director) 600 mls @ 4 mls/ hr IJ ONCE ONE Stop: 12/24/17 21:59 Last Admin: 12/18/17 18:20 Dose: Not Given Micafungin Sodium 100 mg/ (Sodium Chloride) 100 mls @ 100 mls/hr IV Q24H FESTUS PRN Reason: Protocol Last Admin: 12/22/17 10:04 Dose: 100 mls/hr Linezolid (Zyvox 600mg/300ml D5w) 600 mg in 300 mls @ 200 mls/hr IVPB Q12 FESTUS PRN Reason: Protocol Last Admin: 12/22/17 21:06 Dose: 200 mls/hr BUPIVACAINE 0.125%/0.9% NACL (Bupivacaine-Ns 0.125% On-Q Extension Division Director) 600 mls @ 4 mls/ hr IJ ONCE ONE Stop: 12/27/17 15:59 Last Admin: 12/21/17 10:08 Dose: 4 mls/hr Amino Acids (Clinimix 4.25/5 % "E" (1000 Ml)) 1,000 mls @ 42 mls/hr IV .[id number] ONE Stop: 12/23/17 17:48 Last Admin: 12/22/17 18:00 Dose: Not Given Sodium Chloride 35 meq/Magnesium Sulfate 3 meq/Calcium Gluconate 4.5 meq/ Multivitamins/Vitamin C 10 ml/Heparin Sodium (Porcine) 1, 000 units/ Amino Acids 1,030.1663 mls @ 42 mls/hr IV .Q24H [facility] Stop: 12/24/17 17:59 Insulin Human Regular (Novolin R) 0 unit SC Q6 FESTUS PRN Reason: Protocol Last Admin: 12/23/17 06:09 Dose: Not Given - Labs Labs: 12/23/17 05:37 12/23/17 05:38 PT 15.9 SECONDS (9.7-12.2) H 12/18/17 12:39 INR 1.5 12/18/17 12:39 APTT 40 SECONDS (21-34) H 12/18/17 12:39 Attending/Attestation - Attestation I have personally seen and examined this patient.: Yes I have fully participated in the care of the patient.: Yes I have reviewed all pertinent clinical information, including history, physical exam and plan: Yes Notes (Text): 12/23/17 10:45 77 year old female with duodenal carcinoid s/p EMR c/b perforation now s/p laparotomy with jourdan patch closure of defect, course complicated by MANFRED 2/2 ATN now on HD but off pressors. She remains critically ill in ICU on vent. Renal failure appears to be improving. Wean from vent as tolerated. Continue broad spectrum abx. Appreciate surgical recs post op. Surgical recommendations for feeds. Rest of care as per MICU
[2017-12-23] MEDS: Meropenem 500 MG in Sodium Chloride 0.9% 100 ML IVPB SCH ×2 (09:46→21:08)
[2017-12-23] MEDS ORDERED: EPOETIN ALFA 4,000 UNIT/ML ML Dialysis IV ONE ×2 (10:31→15:30)
[2017-12-23] MEDS: Micafungin 100 MG in Sodium Chloride 0.9% 100 ML IV SCH (10:45)
--- NOTE | 2017-12-23 11:48 | CP.PCM.PN ---
Subjective - Date & Time of Evaluation Date of Evaluation: 12/23/17 Time of Evaluation: 10:00 - Subjective Subjective: improving afeb\\ cultures neg Objective - Vital Signs/Intake and Output Vital Signs (last 24 hours): Temp Pulse Resp BP Pulse Ox 100.5 F H 103 H 23 135/57 L 100 12/23/17 08:00 12/23/17 11:00 12/23/17 11:00 12/23/17 10:53 12/23/17 11:00 Intake and Output: 12/23/17 12/23/17 06:59 18:59 Intake Total 1076 208 Output Total 850 175 Balance 226 33 - Medications Medications: Current Medications Acetaminophen (Tylenol 650 Mg Supp) 650 mg [place] Q4 PRN PRN Reason: Fever >100.4 F Last Admin: 12/23/17 09:45 Dose: 650 mg Albuterol/Ipratropium (Duoneb 3 Mg/0.5 Mg (3 Ml) Ud) 3 ml INH RQ4 PRN PRN Reason: Shortness of Breath Last Admin: 12/21/17 14:05 Dose: 3 ml Dextrose (Dextrose 50% Inj) 0 ml IV STAT PRN; Protocol PRN Reason: Hypoglycemia Protocol Dextrose (Glutose 15) 15 gm PO ONCE PRN; Protocol PRN Reason: Hypoglycemia Protocol Glucagon (Glucagen Diagnostic Kit) 1 mg IM STAT PRN; Protocol PRN Reason: Hypoglycemia Protocol Heparin Sodium (Porcine) (Heparin) 5,000 units SC Q8 FESTUS Last Admin: 12/23/17 06:09 Dose: 5,000 units Hydromorphone HCl (Dilaudid) 0.5 mg IVP Q4H PRN PRN Reason: Pain, severe (8-10) Last Admin: 12/18/17 13:04 Dose: 0.5 mg Pantoprazole Sodium 80 mg/ (Sodium Chloride) 100 mls @ 10 mls/hr IV .Q10H FESTUS PRN Reason: 8 MG/HR Last Admin: 12/23/17 09:06 Dose: 10 mls/hr Dextrose (Dextrose 5% In Water 1000 Ml) 1,000 mls @ 0 mls/hr IV .Q0M PRN; Protocol; Per Protocol PRN Reason: Hypoglycemia Protocol Meropenem 500 mg/ Sodium (Chloride) 100 mls @ 100 mls/hr IVPB Q12 FESTUS PRN Reason: Protocol Last Admin: 12/23/17 09:46 Dose: 100 mls/hr BUPIVACAINE 0.125%/0.9% NACL (Bupivacaine-Ns 0.125% On-Q Fashion Design Professor) 600 mls @ 4 mls/ hr IJ ONCE ONE Stop: 12/24/17 21:59 Last Admin: 12/18/17 18:20 Dose: Not Given Micafungin Sodium 100 mg/ (Sodium Chloride) 100 mls @ 100 mls/hr IV Q24H FESTUS PRN Reason: Protocol Last Admin: 12/23/17 10:45 Dose: 100 mls/hr Linezolid (Zyvox 600mg/300ml D5w) 600 mg in 300 mls @ 200 mls/hr IVPB Q12 FESTUS PRN Reason: Protocol Last Admin: 12/22/17 21:06 Dose: 200 mls/hr BUPIVACAINE 0.125%/0.9% NACL (Bupivacaine-Ns 0.125% On-Q [employer]) 600 mls @ 4 mls/ hr IJ ONCE ONE Stop: 12/27/17 15:59 Last Admin: 12/21/17 10:08 Dose: 4 mls/hr Amino Acids (Clinimix 4.25/5 % "E" (1000 Ml)) 1,000 mls @ 42 mls/hr IV .[id number] ONE Stop: 12/23/17 17:48 Last Admin: 12/22/17 18:00 Dose: Not Given Sodium Chloride 35 meq/Magnesium Sulfate 3 meq/Calcium Gluconate 4.5 meq/ Multivitamins/Vitamin C 10 ml/Heparin Sodium (Porcine) 1, 000 units/ Amino Acids 1,030.1663 mls @ 42 mls/hr IV .Q24H [facility] Stop: 12/24/17 17:59 Insulin Human Regular (Novolin R) 0 unit SC Q6 FESTUS PRN Reason: Protocol Last Admin: 12/23/17 06:09 Dose: Not Given - Labs Labs: 12/23/17 05:37 12/23/17 05:38 PT 15.9 SECONDS (9.7-12.2) H 12/18/17 12:39 INR 1.5 12/18/17 12:39 APTT 40 SECONDS (21-34) H 12/18/17 12:39 - Constitutional Appears: Non-toxic, Cachectic, Chronically Ill - Head Exam Head Exam: NORMOCEPHALIC - Eye Exam Eye Exam: absent: Scleral icterus - ENT Exam ENT Exam: Mucous Membranes Dry - Neck Exam Neck Exam: absent: Lymphadenopathy - Respiratory Exam Respiratory Exam: Decreased Breath Sounds, Rhonchi - Cardiovascular Exam Cardiovascular Exam: REGULAR RHYTHM - GI/Abdominal Exam GI & Abdominal Exam: Distended - Rectal Exam Rectal Exam: Deferred - Exam Exam: NORMAL INSPECTION - Extremities Exam Extremities Exam: absent: Pedal Edema - Back Exam Back Exam: absent: CVA tenderness (L), CVA tenderness (R) Assessment and Plan (1) Peritonitis Status: Acute (2) Sepsis Status: Acute (3) Sepsis Status: Acute (4) Renal failure (ARF), acute on chronic Status: Acute (5) Renal failure (ARF), acute on chronic Status: Acute - Assessment and Plan (Free Text) Assessment: cont iv rx for now possible switch to monotherapy
--- NOTE | 2017-12-23 12:00 | CP.CCUPN ---
CCU Subjective - Physician Review Subjective (Free Text): Patient seen and examined at bedside. Intubated on PRVC 14/60/500/5, not on sedation. CPAP trials, plan for extubation. CCU Objective - Vital Signs / Intake & Output Vital Signs (Last 4 hours): Vital Signs Temp Pulse Resp BP Pulse Ox 12/23/17 11:00 103 H 23 100 12/23/17 10:53 102 H 23 135/57 L 100 12/23/17 10:00 104 H 24 100 12/23/17 09:53 101 H 23 138/63 100 12/23/17 09:00 103 H 25 H 100 12/23/17 08:53 102 H 24 130/57 L 100 12/23/17 08:00 100.5 F H 100 H 25 H 100 Intake and Output (Last 8hrs): Intake & Output 12/22/17 12/23/17 12/23/17 22:59 06:59 14:59 Intake Total 516 768 208 Output Total 365 595 175 Balance 151 173 33 Weight 253 lb Intake: Intake, IV Amount 516 768 208 Right Distal Port PICC 80 90 40 Right PICC 100 300 right picc 2nd port 336 378 168 Output: Drainage 215 280 KORI 1 5 60 KORI 2 60 70 Right Nare 150 150 Urine 150 315 175 Urethral (Bruce) 150 315 175 Emesis 0 Other: # Bowel Movements 0 1 0 - Physical Exam Head: Positive for: Atraumatic, Normocephalic, Ecchymosis Extroacular Muscles: Positive for: EOMI Conjunctiva: Positive for: Normal Mouth: Positive for: Other (INTUBATED) Nose (External): Positive for: Other (NGT in place ) Respiratory/Chest: Positive for: Clear to Auscultation. Negative for: Decreased Breath Sounds Cardiovascular: Positive for: Regular Rate and Rhythm Abdomen: Positive for: Tenderness, Normal Bowel Sounds, Guarding. Negative for : Distention Upper Extremity: Positive for: Normal Inspection, NORMAL PULSES, Neurovascularly Intact, Capillary Refill < 2s Lower Extremity: Positive for: Normal Inspection, NORMAL PULSES, Neurovascularly Intact, Capillary Refill < 2 s Neurological: Positive for: GCS=15, CN II-XII Intact Skin: Positive for: Warm, Dry, Normal Color Psychiatric: Positive for: Alert, Oriented x 3, Normal Insight, Normal Concentration - Medications Active Medications: Active Medications Generic Name Dose Route Start Last Admin Trade Name Freq PRN Reason Stop Dose Admin Acetaminophen 650 mg 12/18/17 18:04 12/23/17 09:45 Tylenol 650 Mg Supp NM 650 mg Q4 PRN Administration Fever >100.4 F Albuterol/Ipratropium 3 ml 12/16/17 12:03 12/21/17 14:05 Duoneb 3 Mg/0.5 Mg (3 Ml) Ud INH 3 ml RQ4 PRN Administration Shortness of Breath Dextrose 0 ml 12/16/17 12:08 Dextrose 50% Inj IV STAT PRN Hypoglycemia Protocol Protocol Dextrose 15 gm 12/16/17 12:08 Glutose 15 PO ONCE PRN Hypoglycemia Protocol Protocol Glucagon 1 mg 12/16/17 12:08 Glucagen Diagnostic Kit IM STAT PRN Hypoglycemia Protocol Protocol Heparin Sodium (Porcine) 5,000 units 12/20/17 06:00 12/23/17 06:09 Heparin SC 5,000 units Q8 FESTUS Administration Hydromorphone HCl 0.5 mg 12/17/17 09:53 12/18/17 13:04 Dilaudid IVP 0.5 mg Q4H PRN Administration Pain, severe (8-10) Dextrose 1,000 mls @ 0 mls/hr 12/16/17 12:08 Dextrose 5% In Water 1000 Ml IV .Q0M PRN Hypoglycemia Protocol Protocol Per Protocol Meropenem 500 mg/ Sodium 100 mls @ 100 mls/hr 12/18/17 10:00 12/23/17 09:46 Chloride IVPB 100 mls/hr Q12 FESTUS Administration Protocol BUPIVACAINE 0.125%/0.9% NACL 600 mls @ 4 mls/hr 12/18/17 16:00 12/18/17 18:20 Bupivacaine-Ns 0.125% On-Q Member Service Representative IJ 12/24/17 21:59 Not Given ONCE ONE Micafungin Sodium 100 mg/ 100 mls @ 100 mls/hr 12/21/17 10:00 12/23/17 10:45 Sodium Chloride IV 100 mls/hr Q24H FESTUS Administration Protocol Linezolid 600 mg in 300 mls @ 200 mls/hr 12/20/17 22:00 12/22/17 21:06 Zyvox 600mg/300ml D5w IVPB 200 mls/hr Q12 FESTUS Administration Protocol BUPIVACAINE 0.125%/0.9% NACL 600 mls @ 4 mls/hr 12/21/17 10:00 12/21/17 10:08 Bupivacaine-Ns 0.125% On-Q Member Service Representative IJ 12/27/17 15:59 4 mls/hr ONCE ONE Administration Amino Acids 1,000 mls @ 42 mls/hr 12/22/17 18:00 12/22/17 18:00 Clinimix 4.25/5 % "E" (1000 Ml) IV 12/23/17 17:48 Not Given .[id number] ONE Sodium Chloride 35 meq/ 1,030.1663 mls @ 42 mls/hr 12/23/17 18:00 Magnesium Sulfate 3 meq/ IV 12/24/17 17:59 Calcium Gluconate 4.5 meq/ .Q24H [facility] Multivitamins/Vitamin C 10 ml/ Heparin Sodium (Porcine) 1, 000 units/ Amino Acids Insulin Human Regular 0 unit 12/19/17 00:00 12/23/17 06:09 Novolin R SC Not Given Q6 [facility] Protocol Pantoprazole Sodium 40 mg 12/23/17 22:00 Protonix Inj IVP Q12H FESTUS - Patient Studies Lab Studies: Microbiology Studies 12/17/17 16:00 Blood Culture - Final Blood-Venous NO GROWTH AFTER 5 DAYS Gram Stain - Final TEST NOT PERFORMED 12/17/17 16:40 Blood Culture - Final Blood-Venous NO GROWTH AFTER 5 DAYS Gram Stain - Final TEST NOT PERFORMED Lab Studies 12/23/17 12/23/17 12/23/17 Range/Units 05:38 05:37 04:41 WBC 19.7 H (4.8-10.8) K/uL RBC 2.97 L (3.80-5.20) Mil/uL Hgb 8.4 L (11.0-16.0) g/dL Hct 25.2 L (34.0-47.0) % MCV 84.9 (81.0-99.0) fL MCH 28.3 (27.0-31.0) pg MCHC 33.4 (33.0-37.0) g/dL RDW 14.1 (11.5-14.5) % Plt Count 162 (130-400) K/uL MPV 10.4 (7.2-11.7) fL Neut % (Auto) 92.6 H (50.0-75.0) % Lymph % (Auto) 2.9 L (20.0-40.0) % [place] % (Auto) 3.2 (0.0-10.0) % Eos % (Auto) 1.2 (0.0-4.0) % Baso % (Auto) 0.1 (0.0-2.0) % Neut # (Auto) 18.2 H (1.8-7.0) K/uL Lymph # (Auto) 0.6 L (1.0-4.3) K/uL [place] # (Auto) 0.6 (0.0-0.8) K/uL Eos # (Auto) 0.2 (0.0-0.7) K/uL Baso # (Auto) 0.0 (0.0-0.2) K/uL Neutrophils % (Manual) 88 H (50-75) % Band Neutrophils % 8 H (0-2) % Lymphocytes % (Manual) 2 L (20-40) % Monocytes % (Manual) 2 (0-10) % Platelet Estimate Normal (NORMAL) Hypochromasia (manual) Slight Poikilocytosis (manual Slight Anisocytosis (manual) Slight Puncture Site pCO2 (35-45) mm/Hg pO2 (80-100) mm/Hg HCO3 (21-28) mmol/L ABG pH (7.35-7.45) ABG Total CO2 (22-28) mmol/L ABG O2 Saturation (95-98) % ABG Base Excess (-2.0-3.0) mmol/L ABG Hemoglobin (11.7-17.4) g/dL ABG Carboxyhemoglobin (0.5-1.5) % POC ABG HHb (Measured) (0.0-5.0) % ABG Methemoglobin (0.0-3.0) % Richard Test A-a O2 Difference mm/Hg Respiratory Index Hgb O2 Saturation (95.0-98.0) % Vent Mode Mechanical Rate FiO2 % Tidal Volume PEEP Sodium 140 (132-148) mmol/L Potassium 3.6 (3.6-5.2) mmol/L Chloride 101 (98-107) mmol/L Carbon Dioxide 24 (22-30) mmol/L Anion Gap 19 (10-20) BUN 73 H (7-17) mg/dL Creatinine 5.6 H (0.7-1.2) mg/dL Est GFR ( Amer) 9 Est GFR (Non-Af Amer) 7 POC Glucose (mg/dL) 120 H (65-110) mg/dL Random Glucose 88 (65-105) mg/dL Calcium 6.4 L (8.6-10.4) mg/dl Phosphorus 4.5 (2.5-4.5) mg/dL Magnesium 2.1 (1.6-2.3) mg/dL Total Bilirubin 0.8 (0.2-1.3) mg/dL AST 59 H D (14-36) U/L ALT 30 (9-52) U/L Alkaline Phosphatase 72 (38-126) U/L Total Protein 5.3 L (6.3-8.3) g/dL Albumin 2.9 L (3.5-5.0) g/dL Globulin 2.4 (2.2-3.9) gm/dL Albumin/Globulin Ratio 1.2 (1.0-2.1) 12/23/17 12/23/17 12/22/17 Range/Units 04:20 00:13 18:06 WBC (4.8-10.8) K/uL RBC (3.80-5.20) Mil/uL Hgb (11.0-16.0) g/dL Hct (34.0-47.0) % MCV (81.0-99.0) fL MCH (27.0-31.0) pg MCHC (33.0-37.0) g/dL RDW (11.5-14.5) % Plt Count (130-400) K/uL MPV (7.2-11.7) fL Neut % (Auto) (50.0-75.0) % Lymph % (Auto) (20.0-40.0) % [place] % (Auto) (0.0-10.0) % Eos % (Auto) (0.0-4.0) % Baso % (Auto) (0.0-2.0) % Neut # (Auto) (1.8-7.0) K/uL Lymph # (Auto) (1.0-4.3) K/uL [place] # (Auto) (0.0-0.8) K/uL Eos # (Auto) (0.0-0.7) K/uL Baso # (Auto) (0.0-0.2) K/uL Neutrophils % (Manual) (50-75) % Band Neutrophils % (0-2) % Lymphocytes % (Manual) (20-40) % Monocytes % (Manual) (0-10) % Platelet Estimate (NORMAL) Hypochromasia (manual) Poikilocytosis (manual Anisocytosis (manual) Puncture Site Rr pCO2 29 L (35-45) mm/Hg pO2 115 H (80-100) mm/Hg HCO3 23.8 (21-28) mmol/L ABG pH 7.48 H (7.35-7.45) ABG Total CO2 22.5 (22-28) mmol/L ABG O2 Saturation 99.4 H (95-98) % ABG Base Excess -1.4 (-2.0-3.0) mmol/L ABG Hemoglobin 8.7 L (11.7-17.4) g/dL ABG Carboxyhemoglobin 1.7 H (0.5-1.5) % POC ABG HHb (Measured) 0.6 (0.0-5.0) % ABG Methemoglobin 1.1 (0.0-3.0) % Richard Test Pos A-a O2 Difference 134.0 mm/Hg Respiratory Index 1.2 Hgb O2 Saturation 96.6 (95.0-98.0) % Vent Mode Prvc Mechanical Rate 14 FiO2 40.0 % Tidal Volume 500 PEEP 5 Sodium (132-148) mmol/L Potassium (3.6-5.2) mmol/L Chloride (98-107) mmol/L Carbon Dioxide (22-30) mmol/L Anion Gap (10-20) BUN (7-17) mg/dL Creatinine (0.7-1.2) mg/dL Est GFR ( Amer) Est GFR (Non-Af Amer) POC Glucose (mg/dL) 125 H 124 H (65-110) mg/dL Random Glucose (65-105) mg/dL Calcium (8.6-10.4) mg/dl Phosphorus (2.5-4.5) mg/dL Magnesium (1.6-2.3) mg/dL Total Bilirubin (0.2-1.3) mg/dL AST (14-36) U/L ALT (9-52) U/L Alkaline Phosphatase (38-126) U/L Total Protein (6.3-8.3) g/dL Albumin (3.5-5.0) g/dL Globulin (2.2-3.9) gm/dL Albumin/Globulin Ratio (1.0-2.1) // Range/Units 12:04 WBC (4.8-10.8) K/uL RBC (3.80-5.20) Mil/uL Hgb (11.0-16.0) g/dL Hct (34.0-47.0) % MCV (81.0-99.0) fL MCH (27.0-31.0) pg MCHC (33.0-37.0) g/dL RDW (11.5-14.5) % Plt Count (130-400) K/uL MPV (7.2-11.7) fL Neut % (Auto) (50.0-75.0) % Lymph % (Auto) (20.0-40.0) % [place] % (Auto) (0.0-10.0) % Eos % (Auto) (0.0-4.0) % Baso % (Auto) (0.0-2.0) % Neut # (Auto) (1.8-7.0) K/uL Lymph # (Auto) (1.0-4.3) K/uL [place] # (Auto) (0.0-0.8) K/uL Eos # (Auto) (0.0-0.7) K/uL Baso # (Auto) (0.0-0.2) K/uL Neutrophils % (Manual) (50-75) % Band Neutrophils % (0-2) % Lymphocytes % (Manual) (20-40) % Monocytes % (Manual) (0-10) % Platelet Estimate (NORMAL) Hypochromasia (manual) Poikilocytosis (manual Anisocytosis (manual) Puncture Site pCO2 (35-45) mm/Hg pO2 (80-100) mm/Hg HCO3 (21-28) mmol/L ABG pH (7.35-7.45) ABG Total CO2 (22-28) mmol/L ABG O2 Saturation (95-98) % ABG Base Excess (-2.0-3.0) mmol/L ABG Hemoglobin (11.7-17.4) g/dL ABG Carboxyhemoglobin (0.5-1.5) % POC ABG HHb (Measured) (0.0-5.0) % ABG Methemoglobin (0.0-3.0) % Richard Test A-a O2 Difference mm/Hg Respiratory Index Hgb O2 Saturation (95.0-98.0) % Vent Mode Mechanical Rate FiO2 % Tidal Volume PEEP Sodium (132-148) mmol/L Potassium (3.6-5.2) mmol/L Chloride (98-107) mmol/L Carbon Dioxide (22-30) mmol/L Anion Gap (10-20) BUN (7-17) mg/dL Creatinine (0.7-1.2) mg/dL Est GFR ( Amer) Est GFR (Non-Af Amer) POC Glucose (mg/dL) 124 H (65-110) mg/dL Random Glucose (65-105) mg/dL Calcium (8.6-10.4) mg/dl Phosphorus (2.5-4.5) mg/dL Magnesium (1.6-2.3) mg/dL Total Bilirubin (0.2-1.3) mg/dL AST (14-36) U/L ALT (9-52) U/L Alkaline Phosphatase (38-126) U/L Total Protein (6.3-8.3) g/dL Albumin (3.5-5.0) g/dL Globulin (2.2-3.9) gm/dL Albumin/Globulin Ratio (1.0-2.1) Laboratory Results - last 24 hr 12/22/17 12/22/17 12/23/17 12:04 18:06 00:13 WBC RBC Hgb Hct MCV MCH MCHC RDW Plt Count MPV Neut % (Auto) Lymph % (Auto) [place] % (Auto) Eos % (Auto) Baso % (Auto) Neut # (Auto) Lymph # (Auto) [place] # (Auto) Eos # (Auto) Baso # (Auto) Neutrophils % (Manual) Band Neutrophils % Lymphocytes % (Manual) Monocytes % (Manual) Platelet Estimate Hypochromasia (manual) Poikilocytosis (manual Anisocytosis (manual) Puncture Site pCO2 pO2 HCO3 ABG pH ABG Total CO2 ABG O2 Saturation ABG Base Excess ABG Hemoglobin ABG Carboxyhemoglobin POC ABG HHb (Measured) ABG Methemoglobin Richard Test A-a O2 Difference Respiratory Index Hgb O2 Saturation Vent Mode Mechanical Rate FiO2 Tidal Volume PEEP Sodium Potassium Chloride Carbon Dioxide Anion Gap BUN Creatinine Est GFR ( Amer) Est GFR (Non-Af Amer) POC Glucose (mg/dL) 124 H 124 H 125 H Random Glucose Calcium Phosphorus Magnesium Total Bilirubin AST ALT Alkaline Phosphatase Total Protein Albumin Globulin Albumin/Globulin Ratio 12/23/17 12/23/17 12/23/17 04:20 04:41 05:37 WBC 19.7 H RBC 2.97 L Hgb 8.4 L Hct 25.2 L MCV 84.9 MCH 28.3 MCHC 33.4 RDW 14.1 Plt Count 162 MPV 10.4 Neut % (Auto) 92.6 H Lymph % (Auto) 2.9 L [place] % (Auto) 3.2 Eos % (Auto) 1.2 Baso % (Auto) 0.1 Neut # (Auto) 18.2 H Lymph # (Auto) 0.6 L [place] # (Auto) 0.6 Eos # (Auto) 0.2 Baso # (Auto) 0.0 Neutrophils % (Manual) 88 H Band Neutrophils % 8 H Lymphocytes % (Manual) 2 L Monocytes % (Manual) 2 Platelet Estimate Normal Hypochromasia (manual) Slight Poikilocytosis (manual Slight Anisocytosis (manual) Slight Puncture Site Rr pCO2 29 L pO2 115 H HCO3 23.8 ABG pH 7.48 H ABG Total CO2 22.5 ABG O2 Saturation 99.4 H ABG Base Excess -1.4 ABG Hemoglobin 8.7 L ABG Carboxyhemoglobin 1.7 H POC ABG HHb (Measured) 0.6 ABG Methemoglobin 1.1 Richard Test Pos A-a O2 Difference 134.0 Respiratory Index 1.2 Hgb O2 Saturation 96.6 Vent Mode Prvc Mechanical Rate 14 FiO2 40.0 Tidal Volume 500 PEEP 5 Sodium Potassium Chloride Carbon Dioxide Anion Gap BUN Creatinine Est GFR ( Amer) Est GFR (Non-Af Amer) POC Glucose (mg/dL) 120 H Random Glucose Calcium Phosphorus Magnesium Total Bilirubin AST ALT Alkaline Phosphatase Total Protein Albumin Globulin Albumin/Globulin Ratio 12/23/17 05:38 WBC RBC Hgb Hct MCV MCH MCHC RDW Plt Count MPV Neut % (Auto) Lymph % (Auto) [place] % (Auto) Eos % (Auto) Baso % (Auto) Neut # (Auto) Lymph # (Auto) [place] # (Auto) Eos # (Auto) Baso # (Auto) Neutrophils % (Manual) Band Neutrophils % Lymphocytes % (Manual) Monocytes % (Manual) Platelet Estimate Hypochromasia (manual) Poikilocytosis (manual Anisocytosis (manual) Puncture Site pCO2 pO2 HCO3 ABG pH ABG Total CO2 ABG O2 Saturation ABG Base Excess ABG Hemoglobin ABG Carboxyhemoglobin POC ABG HHb (Measured) ABG Methemoglobin Richard Test A-a O2 Difference Respiratory Index Hgb O2 Saturation Vent Mode Mechanical Rate FiO2 Tidal Volume PEEP Sodium 140 Potassium 3.6 Chloride 101 Carbon Dioxide 24 Anion Gap 19 BUN 73 H Creatinine 5.6 H Est GFR ( Amer) 9 Est GFR (Non-Af Amer) 7 POC Glucose (mg/dL) Random Glucose 88 Calcium 6.4 L Phosphorus 4.5 Magnesium 2.1 Total Bilirubin 0.8 AST 59 H D ALT 30 Alkaline Phosphatase 72 Total Protein 5.3 L Albumin 2.9 L Globulin 2.4 Albumin/Globulin Ratio 1.2 Fingerstick Blood Sugar Results: 124 Critical Care Progress Note - Nutrition Nutrition: Nutrition Category Date Time Status NPO Diet [DIET] Diets 12/20/17 Dinner Active Assessment/Plan - Assessment and Plan (Free Text) Assessment: This is a 77yo female with history of hypertension, COPD, breast cancer s/p lumpectomy that presented to same day 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 During the procedure, patient experienced a significant amount of bleeding which was treated with a combination of clipping , electrocautery and epinephrine. Bleeding was significantly reduced however patient was subsequently admitted to ICU for close observation. Patient was admitted to ICU due to SBP 220/140s initially on cardene drip x 1 - 2 hours- now normotensive; patient now in ATN with CRE of 6.8. Returned to OR 12/18/17 due to increasing free air noted on repeat CT scan ; s/p ex lap primary repair of duodenal perforation, jourdan patch. Omentectomy. Right shiley catheter placed - 12/20. Dialysis 12/20 and 12/21. 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 Alatorre - Previous hemorrhage - stabilized with a combination of clipping, electrocautery and epinephrine. - PPI Q12, IVF - Ct chest, abdomen, pelvis 2/2 abdominal pain and guarding on exam: Mild increase in the extent of pneumoperitoneum. Increasing ascites. Extensive gas adjacent to 2nd duodenum and nasim hepatis. Status post cholecystectomy. Nasogastric tube. Fluid in retroperitoneum and gas in perinephric space on right side. Cannot rule out pancreatitis. Please correlate. Trace right pleural effusion. No pulmonary infiltrate. - Upper GI series - Free air noted - As per surgery patient is for OR due to increasing free air ; s/p ex lap primary repair of duodenal perforation, jourdan patch. Omentectomy. 12/18 A: Pancreatic nodule - Questionable 9 mm rounded fluid density mass in the pancreatic body. This was not clearly appreciated on prior CT examination of 12/16/2017. Further evaluation is advised when clinically feasible with multiphasic contrast- enhanced CT. A: Transaminitis, Elevated T. Bili - downtrending - Viral hepatitis - negative - Abominal US - Diffuse increased echogenicity in the liver may reflect hepatic steatosis however parenchymal infectious/ inflammatory etiologies cannot be entirely excluded. Clinical and laboratory correlation is advised. Mild perihepatic ascites. Endo: A: Thyroid Nodule - There is a 1.9 cm mass in the lower pole of the left thyroid lobe. - Correlate with thyroid ultrasound examination. A: Hypocalcemia - Repleting IV A: IGT - HgA1c 5.9 Renal: A: ARF - Improving with HD - 2/2 ATN - Avoid nephrotoxic drugs - Abdominal US- no sign of renal obstruction - Inserted bruce - Right Shiley catheter inserted 12/20 - Dialysis 12/20, 12/21, 12/23 ID: A: Bandemia - resolving ID Consulted - Dr. Quinonez - Afebrile, vitals stable, no leukocytosis, no source of infection - Patient was prince-cultured 12/17/17 - all negative - Bandemia increasing- 61, Procal - 12.04, lactate 2.4--> 1.7 - Changed zosyn to Meropenem renally dosed - Started 12/20/17 linezolid (GPC coverage) and micafungin 12/21 (fungal coverage ) -- gross abdominal spillage, de-escalate as per intra-op cultures Heme/ Onc: A: Anemia - Hemoglobin baseline -14 - CT chest, ab, pelvis - no evidence of internal hemorrhage - s/p 1 unit 12/20 - Continue to monitor A: Hx breast cancer s/p lumpectomy Prophylaxis - PPI Q12 - SCDs, VTE c/i post op / concern for bleeding - Right PICC line, Right shiley cath inserted 12/20 - Currently on TPN, with plans to extubate today DW Dr. Dao, Estefania Veliz DO, PGY-1
--- NOTE | 2017-12-23 13:01 | CP.PCM.PN ---
<Jimmy Fitzpatrick D - Last Filed: 12/23/17 12:58> Subjective - Date & Time of Evaluation Date of Evaluation: 12/23/17 Time of Evaluation: 07:00 - Subjective Subjective: SURGERY NOTE FOR DR. ALATORRE 77F seen and examined at bedside. Patient intubated, not on pressors. No acute events overnight. Plan for extubation soon. Objective - Vital Signs/Intake and Output Vital Signs (last 24 hours): Temp Pulse Resp BP Pulse Ox 100.4 F H 92 H 24 128/46 L 100 12/23/17 12:00 12/23/17 12:00 12/23/17 12:00 12/23/17 11:53 12/23/17 12:00 Intake and Output: 12/23/17 12/23/17 06:59 18:59 Intake Total 1076 260 Output Total 850 270 Balance 226 -10 - Medications Medications: Current Medications Acetaminophen (Tylenol 650 Mg Supp) 650 mg [place] Q4 PRN PRN Reason: Fever >100.4 F Last Admin: 12/23/17 09:45 Dose: 650 mg Albuterol/Ipratropium (Duoneb 3 Mg/0.5 Mg (3 Ml) Ud) 3 ml INH RQ4 PRN PRN Reason: Shortness of Breath Last Admin: 12/21/17 14:05 Dose: 3 ml Dextrose (Dextrose 50% Inj) 0 ml IV STAT PRN; Protocol PRN Reason: Hypoglycemia Protocol Dextrose (Glutose 15) 15 gm PO ONCE PRN; Protocol PRN Reason: Hypoglycemia Protocol Glucagon (Glucagen Diagnostic Kit) 1 mg IM STAT PRN; Protocol PRN Reason: Hypoglycemia Protocol Heparin Sodium (Porcine) (Heparin) 5,000 units SC Q8 FESTUS Last Admin: 12/23/17 06:09 Dose: 5,000 units Hydromorphone HCl (Dilaudid) 0.5 mg IVP Q4H PRN PRN Reason: Pain, severe (8-10) Last Admin: 12/18/17 13:04 Dose: 0.5 mg Dextrose (Dextrose 5% In Water 1000 Ml) 1,000 mls @ 0 mls/hr IV .Q0M PRN; Protocol; Per Protocol PRN Reason: Hypoglycemia Protocol Meropenem 500 mg/ Sodium (Chloride) 100 mls @ 100 mls/hr IVPB Q12 FESTUS PRN Reason: Protocol Last Admin: 12/23/17 09:46 Dose: 100 mls/hr BUPIVACAINE 0.125%/0.9% NACL (Bupivacaine-Ns 0.125% On-Q Durable Medical Equipment Repairer) 600 mls @ 4 mls/ hr IJ ONCE ONE Stop: 12/24/17 21:59 Last Admin: 12/18/17 18:20 Dose: Not Given Micafungin Sodium 100 mg/ (Sodium Chloride) 100 mls @ 100 mls/hr IV Q24H FESTUS PRN Reason: Protocol Last Admin: 12/23/17 10:45 Dose: 100 mls/hr Linezolid (Zyvox 600mg/300ml D5w) 600 mg in 300 mls @ 200 mls/hr IVPB Q12 FESTUS PRN Reason: Protocol Last Admin: 12/22/17 21:06 Dose: 200 mls/hr BUPIVACAINE 0.125%/0.9% NACL (Bupivacaine-Ns 0.125% On-Q Durable Medical Equipment Repairer) 600 mls @ 4 mls/ hr IJ ONCE ONE Stop: 12/27/17 15:59 Last Admin: 12/21/17 10:08 Dose: 4 mls/hr Amino Acids (Clinimix 4.25/5 % "E" (1000 Ml)) 1,000 mls @ 42 mls/hr IV .[id number] ONE Stop: 12/23/17 17:48 Last Admin: 12/22/17 18:00 Dose: Not Given Sodium Chloride 35 meq/Magnesium Sulfate 3 meq/Calcium Gluconate 4.5 meq/ Multivitamins/Vitamin C 10 ml/Heparin Sodium (Porcine) 1, 000 units/ Amino Acids 1,030.1663 mls @ 42 mls/hr IV .Q24H [facility] Stop: 12/24/17 17:59 Insulin Human Regular (Novolin R) 0 unit SC Q6 FESTUS PRN Reason: Protocol Last Admin: 12/23/17 12:10 Dose: Not Given Pantoprazole Sodium (Protonix Inj) 40 mg IVP Q12H FESTUS - Labs Labs: 12/23/17 05:37 12/23/17 05:38 PT 15.9 SECONDS (9.7-12.2) H 12/18/17 12:39 INR 1.5 12/18/17 12:39 APTT 40 SECONDS (21-34) H 12/18/17 12:39 - Constitutional Appears: Other (intubated) - Respiratory Exam Respiratory Exam: Clear to Ausculation Bilateral, NORMAL BREATHING PATTERN Additional comments: intubated - Cardiovascular Exam Cardiovascular Exam: REGULAR RHYTHM, +S1, +S2 - GI/Abdominal Exam GI & Abdominal Exam: Distended, Soft. absent: Firm, Guarding, Rigid - Extremities Exam Extremities Exam: absent: Pedal Edema, Tenderness - Neurological Exam Neurological Exam: Alert, Awake - Psychiatric Exam Psychiatric exam: Normal Affect, Normal Mood - Skin Skin Exam: Dry, Intact, Normal Color, Warm Assessment and Plan - Assessment and Plan (Free Text) Assessment: 77F s/p repair of duodenal perforation with jourdan patch POD 5 Plan: - Dressing change - drain management - on-Q management - wean and extubate - Dialysis as needed Further recs discuss with Dr. Celi Fitzpatrick, PGY2 <Deion Alatorre - Last Filed: 12/23/17 18:34> Objective - Vital Signs/Intake and Output Vital Signs (last 24 hours): Temp Pulse Resp BP Pulse Ox 99.4 F 110 H 29 H 143/54 L 97 12/23/17 16:45 12/23/17 17:59 12/23/17 17:59 12/23/17 18:01 12/23/17 17:59 Intake and Output: 12/23/17 12/23/17 06:59 18:59 Intake Total 1076 1012 Output Total 850 605 Balance 226 407 - Medications Medications: Current Medications Acetaminophen (Tylenol 325mg Tab) 650 mg PO Q6 PRN PRN Reason: Fever >100.4 F Albuterol/Ipratropium (Duoneb 3 Mg/0.5 Mg (3 Ml) Ud) 3 ml INH RQ4 PRN PRN Reason: Shortness of Breath Last Admin: 12/21/17 14:05 Dose: 3 ml Dextrose (Dextrose 50% Inj) 0 ml IV STAT PRN; Protocol PRN Reason: Hypoglycemia Protocol Dextrose (Glutose 15) 15 gm PO ONCE PRN; Protocol PRN Reason: Hypoglycemia Protocol Glucagon (Glucagen Diagnostic Kit) 1 mg IM STAT PRN; Protocol PRN Reason: Hypoglycemia Protocol Heparin Sodium (Porcine) (Heparin) 5,000 units SC Q8 FESTUS Last Admin: 12/23/17 13:49 Dose: 5,000 units Hydromorphone HCl (Dilaudid) 0.5 mg IVP Q4H PRN PRN Reason: Pain, severe (8-10) Last Admin: 12/18/17 13:04 Dose: 0.5 mg Dextrose (Dextrose 5% In Water 1000 Ml) 1,000 mls @ 0 mls/hr IV .Q0M PRN; Protocol; Per Protocol PRN Reason: Hypoglycemia Protocol Meropenem 500 mg/ Sodium (Chloride) 100 mls @ 100 mls/hr IVPB Q12 FESTUS PRN Reason: Protocol Last Admin: 12/23/17 09:46 Dose: 100 mls/hr BUPIVACAINE 0.125%/0.9% NACL (Bupivacaine-Ns 0.125% On-Q Durable Medical Equipment Repairer) 600 mls @ 4 mls/ hr IJ ONCE ONE Stop: 12/24/17 21:59 Last Admin: 12/18/17 18:20 Dose: Not Given Micafungin Sodium 100 mg/ (Sodium Chloride) 100 mls @ 100 mls/hr IV Q24H [facility] PRN Reason: Protocol Last Admin: 12/23/17 10:45 Dose: 100 mls/hr Linezolid (Zyvox 600mg/300ml D5w) 600 mg in 300 mls @ 200 mls/hr IVPB Q12 FESTUS PRN Reason: Protocol Last Admin: 12/23/17 16:43 Dose: 200 mls/hr BUPIVACAINE 0.125%/0.9% NACL (Bupivacaine-Ns 0.125% On-Q Durable Medical Equipment Repairer) 600 mls @ 4 mls/ hr IJ ONCE ONE Stop: 12/27/17 15:59 Last Admin: 12/21/17 10:08 Dose: 4 mls/hr Sodium Chloride 35 meq/Magnesium Sulfate 3 meq/Calcium Gluconate 4.5 meq/ Multivitamins/Vitamin C 10 ml/Heparin Sodium (Porcine) 1, 000 units/ Amino Acids 1,030.1663 mls @ 42 mls/hr IV .Q24H [facility] Stop: 12/24/17 17:59 Last Admin: 12/23/17 17:35 Dose: 42 mls/hr Insulin Human Regular (Novolin R) 0 unit SC Q6 FESTUS PRN Reason: Protocol Last Admin: 12/23/17 12:10 Dose: Not Given Pantoprazole Sodium (Protonix Inj) 40 mg IVP Q12H [facility]STUS Saccharomyces Boulardii (Florastor) 250 mg PO Q12 FESTUS - Labs Labs: 12/23/17 05:37 12/23/17 05:38 PT 15.9 SECONDS (9.7-12.2) H 12/18/17 12:39 INR 1.5 12/18/17 12:39 APTT 40 SECONDS (21-34) H 12/18/17 12:39 Attending/Attestation - Attestation I have personally seen and examined this patient.: Yes I have fully participated in the care of the patient.: Yes I have reviewed all pertinent clinical information, including history, physical exam and plan: Yes Notes (Text): Pt was seen and examined at bedside Agree with above note and assessment Pt is improving clinically Weaning to extubation C/w IV antibiotics DC On Q pump Change dressing in am c.w current mx Plan d.w ICU attending in detail
--- NOTE | 2017-12-23 13:05 | CP.PCM.PN ---
Subjective - Date & Time of Evaluation Date of Evaluation: 12/23/17 Time of Evaluation: 13:03 - Subjective Subjective: Nephrology Consultation Note: Assessment: critical oliguric Acute Kidney Injury (N17.9) likely hemodynamic injury leading to ATN with Pulmonary congestion HAGMA with respi compensation, hypocalcemia with Vit D insuff (level 23) carcinoid HTN crisis s/p resection now resolved acute abdomen with perforation s/p repair 12/18/17 (ex lap) hypertension, COPD, breast cancer s/p lumpectomy and duodenal neuroendocrine tumor Plan HD 4th session today as ordered No ACEI/ARB due to MANFRED. BP on low side. maintain hemodynamics stable. Monitor Input/Output, daily weights and renal function with basic metabolic panel minimize IVF agree with IV calcium gluconate supplementation as needed anemia: PRBC as needed will give Vit D and iron/MVI once pt on diet Dose meds/antibiotics for reduced GFR and dialysis status. Avoid fleets enema/ magnesium based laxatives. Avoid nephrotoxins/NSAIDs/ iodinated contrast ( unless needed emergently) Glycemic control Further work up/management as per primary team Thanks for allowing me to participate in care of your patient. Will follow patient with you. Please call if any Qs. 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 she also had HTN crisis which was treated with cardene drip. renal consult for MANFRED eval. also found to have free air in abdomen Denies OTC/herbal meds or NSAIDs No recent iodinated contrast exposure. Noted obvious episodes of low BP (89/51). ROS: unable as pt intubated Physical Examination: General Appearance: remains intubated, ill appearing Vitals reviewed and noted as below Head; Atraumatic, normocephalic ENT: orally intubated EYES: Pupils are equal, round and reactive to light accommodation. Eye muscles and extraocular movement intact. Sclera is anicteric. Neck; supple no lymphadenopathy, no thyromegaly or bruit Lungs: Normal respiratory rate/effort. Breath sounds bilateral equal and bilateral wheeze + Heart: Normal rate. s1s2 normal. No rub or gallop. Extremities: no edema. No varicose veins Neurological: Patient is awake Skin: Warm and dry. Normal turgor. No rash. Palpitation: Normal elasticity for age Abdomen: no abdominal tenderness with out guarding but no rigidity no organomegaly s/p exlap Psych: unable MSK: no joint tenderness or swelling. Digits and nails normal, no deformity : kidney or bladder not palpable. has bruce with bluish/green color urine ? due to methylene blue dye Labs/imaging reviewed. Past medical history, past surgical history, family history, social history, allergy reviewed and noted as below Family hx: no hx of CKD. Rest non-contributory renal imaging: WNL FeNa 0.7% UA 1+ protein no blood Objective - Vital Signs/Intake and Output Vital Signs (last 24 hours): Temp Pulse Resp BP Pulse Ox 100.4 F H 92 H 24 128/46 L 100 12/23/17 12:00 12/23/17 12:00 12/23/17 12:00 12/23/17 11:53 12/23/17 12:00 Intake and Output: 12/23/17 12/23/17 06:59 18:59 Intake Total 1076 260 Output Total 850 270 Balance 226 -10 - Medications Medications: Current Medications Acetaminophen (Tylenol 650 Mg Supp) 650 mg SD Q4 PRN PRN Reason: Fever >100.4 F Last Admin: 12/23/17 09:45 Dose: 650 mg Albuterol/Ipratropium (Duoneb 3 Mg/0.5 Mg (3 Ml) Ud) 3 ml INH RQ4 PRN PRN Reason: Shortness of Breath Last Admin: 12/21/17 14:05 Dose: 3 ml Dextrose (Dextrose 50% Inj) 0 ml IV STAT PRN; Protocol PRN Reason: Hypoglycemia Protocol Dextrose (Glutose 15) 15 gm PO ONCE PRN; Protocol PRN Reason: Hypoglycemia Protocol Glucagon (Glucagen Diagnostic Kit) 1 mg IM STAT PRN; Protocol PRN Reason: Hypoglycemia Protocol Heparin Sodium (Porcine) (Heparin) 5,000 units SC Q8 FESTUS Last Admin: 12/23/17 06:09 Dose: 5,000 units Hydromorphone HCl (Dilaudid) 0.5 mg IVP Q4H PRN PRN Reason: Pain, severe (8-10) Last Admin: 12/18/17 13:04 Dose: 0.5 mg Dextrose (Dextrose 5% In Water 1000 Ml) 1,000 mls @ 0 mls/hr IV .Q0M PRN; Protocol; Per Protocol PRN Reason: Hypoglycemia Protocol Meropenem 500 mg/ Sodium (Chloride) 100 mls @ 100 mls/hr IVPB Q12 FESTUS PRN Reason: Protocol Last Admin: 12/23/17 09:46 Dose: 100 mls/hr BUPIVACAINE 0.125%/0.9% NACL (Bupivacaine-Ns 0.125% On-Q Operating Room Assistant) 600 mls @ 4 mls/ hr IJ ONCE ONE Stop: 12/24/17 21:59 Last Admin: 12/18/17 18:20 Dose: Not Given Micafungin Sodium 100 mg/ (Sodium Chloride) 100 mls @ 100 mls/hr IV Q24H [facility]STUS PRN Reason: Protocol Last Admin: 12/23/17 10:45 Dose: 100 mls/hr Linezolid (Zyvox 600mg/300ml D5w) 600 mg in 300 mls @ 200 mls/hr IVPB Q12 FESTUS PRN Reason: Protocol Last Admin: 12/22/17 21:06 Dose: 200 mls/hr BUPIVACAINE 0.125%/0.9% NACL (Bupivacaine-Ns 0.125% On-Q Operating Room Assistant) 600 mls @ 4 mls/ hr IJ ONCE ONE Stop: 12/27/17 15:59 Last Admin: 12/21/17 10:08 Dose: 4 mls/hr Amino Acids (Clinimix 4.25/5 % "E" (1000 Ml)) 1,000 mls @ 42 mls/hr IV .[id number] ONE Stop: 12/23/17 17:48 Last Admin: 12/22/17 18:00 Dose: Not Given Sodium Chloride 35 meq/Magnesium Sulfate 3 meq/Calcium Gluconate 4.5 meq/ Multivitamins/Vitamin C 10 ml/Heparin Sodium (Porcine) 1, 000 units/ Amino Acids 1,030.1663 mls @ 42 mls/hr IV .Q24H [facility] Stop: 12/24/17 17:59 Insulin Human Regular (Novolin R) 0 unit SC Q6 FESTUS PRN Reason: Protocol Last Admin: 12/23/17 12:10 Dose: Not Given Pantoprazole Sodium (Protonix Inj) 40 mg IVP Q12H FESTUS - Labs Labs: 12/23/17 05:37 12/23/17 05:38 PT 15.9 SECONDS (9.7-12.2) H 12/18/17 12:39 INR 1.5 12/18/17 12:39 APTT 40 SECONDS (21-34) H 12/18/17 12:39
[2017-12-23] MEDS: Linezolid 600 mg in D5W 300 ml 600 MG/300 ML BAG IVPB SCH ×2 (16:43→21:08)
[2017-12-23] MEDS ORDERED: MAGNESIUM SULFATE IV SCH (18:00)
[2017-12-23] MEDS ORDERED: [UNRECOGNIZED DRUG - OTHER] IV SCH (18:00)
[2017-12-23] MEDS ORDERED: SODIUM CHLORIDE IV SCH (18:00)
[2017-12-23] MEDS ORDERED: PPN IV SCH (18:00)
[2017-12-23] MEDS: Saccharomyces Boulardi 250 mg Cap PO SCH (21:08)
[2017-12-24] MEDS: (Novolin R) Insulin Human Regular 100 units/ml vial SC SCH ×4 (00:14→18:08)
[2017-12-24] MEDS: HYDROmorphone 0.5 mg/0.5 ml ISec IVP PRN ×3 (00:21→21:46)
[2017-12-24 05:53] LABS: ABG ALLEN TEST POS; ARTERIAL BLOOD GAS HCO3 27.5 mmol/L (21-28); ARTERIAL BLOOD GAS HEMOGLOBIN 8.7 g/dL (11.7-17.4); ARTERIAL BLOOD GAS O2 SAT 98.4 % (95-98); ARTERIAL BLOOD GAS PCO2 33 mm/Hg (35-45); ARTERIAL BLOOD GAS PH 7.51 (7.35-7.45); ARTERIAL BLOOD GAS PO2 85 mm/Hg (80-100); ARTERIAL BLOOD GAS TCO2 27.3 mmol/L (22-28)
[2017-12-24 06:29] LABS: BASO % 0.1 % (0.0-2.0); EOS # 0.2 K/uL (0.0-0.7); EOS % 0.7 % (0.0-4.0); HEMOGLOBIN 8.3 g/dL (11.0-16.0); LYMPH # 0.7 K/uL (1.0-4.3); MEAN CELL VOLUME 85.4 fL (81.0-99.0); MEAN CORPUSCULAR HEMOGLOBIN 27.8 pg (27.0-31.0); MEAN CORPUSCULAR HGB CONC 32.6 g/dL (33.0-37.0); MEAN PLATELET VOLUME 10.4 fL (7.2-11.7); MONO % 4.2 % (0.0-10.0); NEUT # 21.3 K/uL (1.8-7.0); PLATELET COUNT 176 K/uL (130-400); RBC 2.98 Mil/uL (3.80-5.20); RED CELL DISTRIBUTION WIDTH 13.8 % (11.5-14.5); WHITE BLOOD COUNT 23.1 K/uL (4.8-10.8)
[2017-12-24 06:39] LABS: ALB/GLOB RATIO 1.1 (1.0-2.1); ALBUMIN 2.9 g/dL (3.5-5.0)
[2017-12-24] MEDS: Albuterol-Ipratrop 3 mg / 0.5 (3 ml) UD INH PRN (08:04)
[2017-12-24 08:32] LABS: BANDS 8 % (0-2); EOSINOPHIL 3 % (0-4); LYMPHOCYTE 5 % (20-40); MONOCYTE 4 % (0-10); NEUTROPHIL 80 % (50-75); PLATELET ESTIMATE NORMAL (NORMAL); TOTAL CELLS COUNTED 100
[2017-12-24 08:33] LABS: HYPOCHROMIC SLIGHT; TOXIC GRANULATION PRESENT
[2017-12-24 09:10] LABS: INR 1.3
--- NOTE | 2017-12-24 09:23 | RAD ---
HISTORY: intubated COMPARISON: No prior. FINDINGS: In situ ETT, tip of which lies approximately 9.4 cm above kathy. Situ NGT, the tip of which is not well delineated on this exam though does lie well below junction so far as can be determined. . No change right-sided PICC line with tip in the SVC/brachiocephalic junction LUNGS: Subsegmental atelectasis and or scarring left upper lobe/ lung apex unchanged. Bibasilar atelectasis with questionable small bilateral effusions PLEURA: As above. No pneumothorax apparent. CARDIOVASCULAR: Cardiomegaly OSSEOUS STRUCTURES: No significant abnormalities. VISUALIZED UPPER ABDOMEN: Normal. OTHER FINDINGS: None. IMPRESSION: Support lines and tubes as above. Subsegmental atelectasis and or scarring left upper lobe/ lung apex unchanged. Bibasilar atelectasis with questionable small bilateral effusions
--- NOTE | 2017-12-24 09:31 | CP.PCM.PN ---
<Benita Hurst - Last Filed: 12/24/17 09:32> Subjective - Date & Time of Evaluation Date of Evaluation: 12/24/17 Time of Evaluation: 07:00 - Subjective Subjective: GI Fellow PGY4 Progress Note Pt seen and evaluated at bedside, pt intubated s/p repair of perforation. Pt with BM overnight. Pt hemodynamically stable, with no pressor support. Pt had 4th session of HD yesterday. Pt more alert, awake today, responding to name and following commands. Discussed with ICU team plan to extubate today. ROS:A 12pt ROS was unable to be obtained due to AMS Objective - Vital Signs/Intake and Output Vital Signs (last 24 hours): Temp Pulse Resp BP Pulse Ox 101.3 F H 115 H 25 H 144/68 97 12/24/17 07:57 12/24/17 08:00 12/24/17 08:00 12/24/17 08:00 12/24/17 08:00 Intake and Output: 12/24/17 12/24/17 06:59 18:59 Intake Total 946 42 Output Total 655 10 Balance 291 32 - Medications Medications: Current Medications Acetaminophen (Tylenol 325mg Tab) 650 mg PO Q6 PRN PRN Reason: Fever >100.4 F Last Admin: 12/24/17 07:57 Dose: 650 mg Albuterol/Ipratropium (Duoneb 3 Mg/0.5 Mg (3 Ml) Ud) 3 ml INH RQ4 PRN PRN Reason: Shortness of Breath Last Admin: 12/24/17 08:04 Dose: 3 ml Dextrose (Dextrose 50% Inj) 0 ml IV STAT PRN; Protocol PRN Reason: Hypoglycemia Protocol Dextrose (Glutose 15) 15 gm PO ONCE PRN; Protocol PRN Reason: Hypoglycemia Protocol Glucagon (Glucagen Diagnostic Kit) 1 mg IM STAT PRN; Protocol PRN Reason: Hypoglycemia Protocol Heparin Sodium (Porcine) (Heparin) 5,000 units SC Q8 [facility] Last Admin: 12/24/17 05:03 Dose: 5,000 units Hydromorphone HCl (Dilaudid) 0.5 mg IVP Q4H PRN PRN Reason: Pain, severe (8-10) Last Admin: 12/24/17 00:21 Dose: 0.5 mg Dextrose (Dextrose 5% In Water 1000 Ml) 1,000 mls @ 0 mls/hr IV .Q0M PRN; Protocol; Per Protocol PRN Reason: Hypoglycemia Protocol Meropenem 500 mg/ Sodium (Chloride) 100 mls @ 100 mls/hr IVPB Q12 [facility] PRN Reason: Protocol Last Admin: 12/23/17 21:08 Dose: 100 mls/hr BUPIVACAINE 0.125%/0.9% NACL (Bupivacaine-Ns 0.125% On-Q Music Typographer) 600 mls @ 4 mls/ hr IJ ONCE ONE Stop: 12/24/17 21:59 Last Admin: 12/18/17 18:20 Dose: Not Given Micafungin Sodium 100 mg/ (Sodium Chloride) 100 mls @ 100 mls/hr IV Q24H [facility] PRN Reason: Protocol Last Admin: 12/23/17 10:45 Dose: 100 mls/hr Linezolid (Zyvox 600mg/300ml D5w) 600 mg in 300 mls @ 200 mls/hr IVPB Q12 [facility] PRN Reason: Protocol Last Admin: 12/23/17 21:08 Dose: 200 mls/hr BUPIVACAINE 0.125%/0.9% NACL (Bupivacaine-Ns 0.125% On-Q Music Typographer) 600 mls @ 4 mls/ hr IJ ONCE ONE Stop: 12/27/17 15:59 Last Admin: 12/21/17 10:08 Dose: 4 mls/hr Sodium Chloride 35 meq/Magnesium Sulfate 3 meq/Calcium Gluconate 4.5 meq/ Multivitamins/Vitamin C 10 ml/Heparin Sodium (Porcine) 1, 000 units/ Amino Acids 1,030.1663 mls @ 42 mls/hr IV .Q24H [facility] Stop: 12/24/17 17:59 Last Admin: 12/23/17 17:35 Dose: 42 mls/hr Potassium Chloride (Potassium Chloride 20 Meq/100 Ml) 20 meq in 100 mls @ 50 mls/hr IVPB ONCE ONE Stop: 12/24/17 09:43 Last Admin: 12/24/17 08:32 Dose: 50 mls/hr Potassium Chloride (Potassium Chloride 20 Meq/100 Ml) 20 meq in 100 mls @ 50 mls/hr IVPB ONCE ONE Stop: 12/24/17 12:59 Insulin Human Regular (Novolin R) 0 unit SC Q6 [facility] PRN Reason: Protocol Last Admin: 12/24/17 05:04 Dose: 1 unit Pantoprazole Sodium (Protonix Inj) 40 mg IVP Q12H [facility] Last Admin: 12/23/17 22:58 Dose: 40 mg Saccharomyces Boulardii (Florastor) 250 mg PO Q12 [facility] Last Admin: 12/23/17 21:08 Dose: 250 mg - Labs Labs: 12/24/17 06:24 12/24/17 06:14 PT 14.0 SECONDS (9.7-12.2) H 12/24/17 08:54 INR 1.3 12/24/17 08:54 APTT 40 SECONDS (21-34) H 12/18/17 12:39 - Constitutional Appears: Non-toxic, No Acute Distress - Head Exam Head Exam: ATRAUMATIC, NORMAL INSPECTION, NORMOCEPHALIC - Eye Exam Eye Exam: EOMI, Normal appearance, PERRL - ENT Exam ENT Exam: Mucous Membranes Dry Additional comments: ETT, NGT - Respiratory Exam Respiratory Exam: Respiratory Distress, NORMAL BREATHING PATTERN - Cardiovascular Exam Cardiovascular Exam: Tachycardia, +S1 - GI/Abdominal Exam GI & Abdominal Exam: Soft, Tenderness, Normal Bowel Sounds. 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 Pt is s/p EGD/EUS with EMR complicated by bleeding and perforation s/p clip placement x 7, epi injection, and bipolar cautery. 1. Duodenal perforation s/p surgical repair 2. 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 ARF, ATN on HD 4. Sepsis 5. VDRF 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 and perforation that was treated with a combination of clipping, electrocautery and epinephrine - Duodenal perforation with no closure seen on repeat CT and UpperGI series, pt taken to OR with repair of perforation with jourdan patch - Anemia, H/H stable, monitor H/H, no active GI bleeding - Protonix BID - IV abx meropenema, linezolid and micfungin by ID - Pt clinically hemodynamically stable, BP on the lower side - ARF likely ATN, s/p initiation of HD 12/20/17, monitor renal function - NPO - Pt on TPN by ICU team, per surgery plan for feeds after extubation - Appreciate surgical consult - Plan to extubate today per ICU team - Will continue to follow pt closely <Thomas Cline - Last Filed: 12/24/17 12:17> Objective - Vital Signs/Intake and Output Vital Signs (last 24 hours): Temp Pulse Resp BP Pulse Ox 101.3 F H 106 H 22 130/45 L 98 12/24/17 07:57 12/24/17 11:00 12/24/17 11:00 12/24/17 11:00 12/24/17 11:00 Intake and Output: 12/24/17 12/24/17 06:59 18:59 Intake Total 946 468 Output Total 655 30 Balance 291 438 - Medications Medications: Current Medications Acetaminophen (Tylenol 325mg Tab) 650 mg PO Q6 PRN PRN Reason: Fever >100.4 F Last Admin: 12/24/17 07:57 Dose: 650 mg Albuterol/Ipratropium (Duoneb 3 Mg/0.5 Mg (3 Ml) Ud) 3 ml INH RQ4 PRN PRN Reason: Shortness of Breath Last Admin: 12/24/17 08:04 Dose: 3 ml Dextrose (Dextrose 50% Inj) 0 ml IV STAT PRN; Protocol PRN Reason: Hypoglycemia Protocol Dextrose (Glutose 15) 15 gm PO ONCE PRN; Protocol PRN Reason: Hypoglycemia Protocol Glucagon (Glucagen Diagnostic Kit) 1 mg IM STAT PRN; Protocol PRN Reason: Hypoglycemia Protocol Heparin Sodium (Porcine) (Heparin) 5,000 units SC Q8 [facility] Last Admin: 12/24/17 05:03 Dose: 5,000 units Hydromorphone HCl (Dilaudid) 0.5 mg IVP Q4H PRN PRN Reason: Pain, severe (8-10) Last Admin: 12/24/17 00:21 Dose: 0.5 mg Dextrose (Dextrose 5% In Water 1000 Ml) 1,000 mls @ 0 mls/hr IV .Q0M PRN; Protocol; Per Protocol PRN Reason: Hypoglycemia Protocol Meropenem 500 mg/ Sodium (Chloride) 100 mls @ 100 mls/hr IVPB Q12 [facility] PRN Reason: Protocol Last Admin: 12/24/17 09:50 Dose: 100 mls/hr BUPIVACAINE 0.125%/0.9% NACL (Bupivacaine-Ns 0.125% On-Q Music Typographer) 600 mls @ 4 mls/ hr IJ ONCE ONE Stop: 12/24/17 21:59 Last Admin: 12/18/17 18:20 Dose: Not Given Micafungin Sodium 100 mg/ (Sodium Chloride) 100 mls @ 100 mls/hr IV Q24H [facility] PRN Reason: Protocol Last Admin: 12/24/17 10:41 Dose: 100 mls/hr Linezolid (Zyvox 600mg/300ml D5w) 600 mg in 300 mls @ 200 mls/hr IVPB Q12 [facility] PRN Reason: Protocol Last Admin: 12/24/17 10:53 Dose: 200 mls/hr BUPIVACAINE 0.125%/0.9% NACL (Bupivacaine-Ns 0.125% On-Q Music Typographer) 600 mls @ 4 mls/ hr IJ ONCE ONE Stop: 12/27/17 15:59 Last Admin: 12/21/17 10:08 Dose: 4 mls/hr Sodium Chloride 35 meq/Magnesium Sulfate 3 meq/Calcium Gluconate 4.5 meq/ Multivitamins/Vitamin C 10 ml/Heparin Sodium (Porcine) 1, 000 units/ Amino Acids 1,030.1663 mls @ 42 mls/hr IV .Q24H [facility] Stop: 12/24/17 17:59 Last Admin: 12/23/17 17:35 Dose: 42 mls/hr Potassium Chloride (Potassium Chloride 20 Meq/100 Ml) 20 meq in 100 mls @ 50 mls/hr IVPB ONCE ONE Stop: 12/24/17 12:59 Sodium Chloride 35 meq/Magnesium Sulfate 3 meq/Calcium Gluconate 4.5 meq/ Multivitamins/Vitamin C 10 ml/Heparin Sodium (Porcine) 1, 000 units/ Amino Acids 1,030.1663 mls @ 42 mls/hr IV .Q24H [facility] Stop: 12/25/17 17:59 Insulin Human Regular (Novolin R) 0 unit SC Q6 [facility] PRN Reason: Protocol Last Admin: 12/24/17 05:04 Dose: 1 unit Pantoprazole Sodium (Protonix Inj) 40 mg IVP Q12H [facility] Last Admin: 12/24/17 10:31 Dose: 40 mg Saccharomyces Boulardii (Florastor) 250 mg PO Q12 [facility] Last Admin: 12/24/17 10:31 Dose: 250 mg - Labs Labs: 12/24/17 06:24 12/24/17 06:14 PT 14.0 SECONDS (9.7-12.2) H 12/24/17 08:54 INR 1.3 12/24/17 08:54 APTT 40 SECONDS (21-34) H 12/18/17 12:39 Attending/Attestation - Attestation I have personally seen and examined this patient.: Yes I have fully participated in the care of the patient.: Yes I have reviewed all pertinent clinical information, including history, physical exam and plan: Yes Notes (Text): 12/24/17 12:12 I have seen and examined patient with GI fellow. No acute events overnight, she remains intubated in critical care unit. She is awake and nods head appropriately to questions. There is no reported abdominal pain, nausea, vomiting. She had one loose bowel movement this morning, remains on TPN. Review of vitals from today shows temperature of 101.5 and tachycardia. HTN COPD Duodenal carcinoid tumor s/p EGD with EMR of lesion complicated by perforation s /p duodenal surgical repair Acute renal insufficiency s/p initiation of dialysis Sepsis - Discussed with signal timer, will attempt extubation today, patient tolerating PS - Continue with antibiotic therapy, follow up ID recommendations - Repeat blood culture - H/H stable, continue to monitor - Continue with PPI therapy - Ideally would favor initiation of enteric feeding as soon as possible rather than TPN, would recommend swallow evaluation post extubation if patient able to tolerate. Will continue to monitor patient clinical course.
[2017-12-24] MEDS: Meropenem 500 MG in Sodium Chloride 0.9% 100 ML IVPB SCH ×2 (09:50→21:23)
[2017-12-24] MEDS: Saccharomyces Boulardi 250 mg Cap PO SCH ×2 (10:31→21:24)
[2017-12-24] MEDS: Micafungin 100 MG in Sodium Chloride 0.9% 100 ML IV SCH (10:41)
[2017-12-24] MEDS: Linezolid 600 mg in D5W 300 ml 600 MG/300 ML BAG IVPB SCH ×2 (10:53→21:23)
--- NOTE | 2017-12-24 12:35 | CP.PCM.PN ---
Subjective - Date & Time of Evaluation Date of Evaluation: 12/24/17 Time of Evaluation: 09:00 - Subjective Subjective: pt intubated s/p repair of perforation. Pt with BM overnight. Pt hemodynamically stable, with no pressor support. Pt had 4th session of HD yesterday. Pt more alert, awake today, responding to name and following commands. Discussed with ICU team plan to extubate today. Objective - Vital Signs/Intake and Output Vital Signs (last 24 hours): Temp Pulse Resp BP Pulse Ox 101.3 F H 106 H 22 130/45 L 98 12/24/17 07:57 12/24/17 11:00 12/24/17 11:00 12/24/17 11:00 12/24/17 11:00 Intake and Output: 12/24/17 12/24/17 06:59 18:59 Intake Total 946 468 Output Total 655 30 Balance 291 438 - Medications Medications: Current Medications Acetaminophen (Tylenol 325mg Tab) 650 mg PO Q6 PRN PRN Reason: Fever >100.4 F Last Admin: 12/24/17 07:57 Dose: 650 mg Albuterol/Ipratropium (Duoneb 3 Mg/0.5 Mg (3 Ml) Ud) 3 ml INH RQ4 PRN PRN Reason: Shortness of Breath Last Admin: 12/24/17 08:04 Dose: 3 ml Dextrose (Dextrose 50% Inj) 0 ml IV STAT PRN; Protocol PRN Reason: Hypoglycemia Protocol Dextrose (Glutose 15) 15 gm PO ONCE PRN; Protocol PRN Reason: Hypoglycemia Protocol Glucagon (Glucagen Diagnostic Kit) 1 mg IM STAT PRN; Protocol PRN Reason: Hypoglycemia Protocol Heparin Sodium (Porcine) (Heparin) 5,000 units SC Q8 [facility] Last Admin: 12/24/17 05:03 Dose: 5,000 units Hydromorphone HCl (Dilaudid) 0.5 mg IVP Q4H PRN PRN Reason: Pain, severe (8-10) Last Admin: 12/24/17 00:21 Dose: 0.5 mg Dextrose (Dextrose 5% In Water 1000 Ml) 1,000 mls @ 0 mls/hr IV .Q0M PRN; Protocol; Per Protocol PRN Reason: Hypoglycemia Protocol Meropenem 500 mg/ Sodium (Chloride) 100 mls @ 100 mls/hr IVPB Q12 [facility] PRN Reason: Protocol Last Admin: 12/24/17 09:50 Dose: 100 mls/hr BUPIVACAINE 0.125%/0.9% NACL (Bupivacaine-Ns 0.125% On-Q Tool Keeper) 600 mls @ 4 mls/ hr IJ ONCE ONE Stop: 12/24/17 21:59 Last Admin: 12/18/17 18:20 Dose: Not Given Micafungin Sodium 100 mg/ (Sodium Chloride) 100 mls @ 100 mls/hr IV Q24H [facility] PRN Reason: Protocol Last Admin: 12/24/17 10:41 Dose: 100 mls/hr Linezolid (Zyvox 600mg/300ml D5w) 600 mg in 300 mls @ 200 mls/hr IVPB Q12 [facility] PRN Reason: Protocol Last Admin: 12/24/17 10:53 Dose: 200 mls/hr BUPIVACAINE 0.125%/0.9% NACL (Bupivacaine-Ns 0.125% On-Q Tool Keeper) 600 mls @ 4 mls/ hr IJ ONCE ONE Stop: 12/27/17 15:59 Last Admin: 12/21/17 10:08 Dose: 4 mls/hr Sodium Chloride 35 meq/Magnesium Sulfate 3 meq/Calcium Gluconate 4.5 meq/ Multivitamins/Vitamin C 10 ml/Heparin Sodium (Porcine) 1, 000 units/ Amino Acids 1,030.1663 mls @ 42 mls/hr IV .Q24H [facility] Stop: 12/24/17 17:59 Last Admin: 12/23/17 17:35 Dose: 42 mls/hr Potassium Chloride (Potassium Chloride 20 Meq/100 Ml) 20 meq in 100 mls @ 50 mls/hr IVPB ONCE ONE Stop: 12/24/17 12:59 Sodium Chloride 35 meq/Magnesium Sulfate 3 meq/Calcium Gluconate 4.5 meq/ Multivitamins/Vitamin C 10 ml/Heparin Sodium (Porcine) 1, 000 units/ Amino Acids 1,030.1663 mls @ 42 mls/hr IV .Q24H [facility] Stop: 12/25/17 17:59 Insulin Human Regular (Novolin R) 0 unit SC Q6 [facility] PRN Reason: Protocol Last Admin: 12/24/17 05:04 Dose: 1 unit Pantoprazole Sodium (Protonix Inj) 40 mg IVP Q12H [facility] Last Admin: 12/24/17 10:31 Dose: 40 mg Saccharomyces Boulardii (Florastor) 250 mg PO Q12 [facility] Last Admin: 12/24/17 10:31 Dose: 250 mg - Labs Labs: 12/24/17 06:24 12/24/17 06:14 PT 14.0 SECONDS (9.7-12.2) H 12/24/17 08:54 INR 1.3 12/24/17 08:54 APTT 40 SECONDS (21-34) H 12/18/17 12:39 - Constitutional Appears: Non-toxic, Chronically Ill - Head Exam Head Exam: NORMOCEPHALIC - Eye Exam Eye Exam: PERRL - ENT Exam ENT Exam: Mucous Membranes Dry - Neck Exam Neck Exam: absent: Lymphadenopathy - Respiratory Exam Respiratory Exam: Decreased Breath Sounds - Cardiovascular Exam Cardiovascular Exam: REGULAR RHYTHM - GI/Abdominal Exam GI & Abdominal Exam: Distended - Rectal Exam Rectal Exam: Deferred - Exam Exam: NORMAL INSPECTION Assessment and Plan (1) Peritonitis Status: Acute (2) Sepsis Status: Acute (3) Sepsis Status: Acute (4) Renal failure (ARF), acute on chronic Status: Acute (5) Renal failure (ARF), acute on chronic Status: Acute - Assessment and Plan (Free Text) Assessment: pt intubated s/p repair of perforation. cultures all neg WBC persistently elevatedcont IV rx
--- NOTE | 2017-12-24 13:11 | CP.CCUPN ---
<Estefania Veliz - Last Filed: 12/24/17 13:01> CCU Subjective - Physician Review Subjective (Free Text): Patient seen and examined at bedside. Intubated on PRVC 14/40/500/5, not on sedation. CPAP trials, plan for extubation. CCU Objective - Vital Signs / Intake & Output Vital Signs (Last 4 hours): Vital Signs Pulse Resp BP Pulse Ox 12/24/17 11:00 106 H 22 130/45 L 98 12/24/17 10:00 107 H 24 130/43 L 100 Intake and Output (Last 8hrs): Intake & Output 12/23/17 12/24/17 12/24/17 22:59 06:59 14:59 Intake Total 736 678 468 Output Total 3047 598 30 Balance -2311 80 438 Weight 250 lb Intake: Intake, IV Amount 736 678 368 Right Distal Port PICC 400 300 200 right picc 2nd port 336 378 168 Other 100 Output: Drainage 265 360 KORI 1 5 0 KORI 2 110 60 Right Nare 150 300 Urine 82 153 30 Urethral (Bruce) 82 153 30 Stool 85 Other 2700 Other: # Bowel Movements 0 - Physical Exam Head: Positive for: Atraumatic, Normocephalic, Ecchymosis Extroacular Muscles: Positive for: EOMI Conjunctiva: Positive for: Normal Mouth: Positive for: Other (INTUBATED) Nose (External): Positive for: Other (NGT in place ) Respiratory/Chest: Positive for: Clear to Auscultation. Negative for: Decreased Breath Sounds Cardiovascular: Positive for: Regular Rate and Rhythm Abdomen: Positive for: Tenderness, Normal Bowel Sounds, Guarding. Negative for : Distention Upper Extremity: Positive for: Normal Inspection, NORMAL PULSES, Neurovascularly Intact, Capillary Refill < 2s Lower Extremity: Positive for: Normal Inspection, NORMAL PULSES, Neurovascularly Intact, Capillary Refill < 2 s Neurological: Positive for: GCS=15, CN II-XII Intact Skin: Positive for: Warm, Dry, Normal Color Psychiatric: Positive for: Alert, Oriented x 3, Normal Insight, Normal Concentration - Medications Active Medications: Active Medications Generic Name Dose Route Start Last Admin Trade Name Freq PRN Reason Stop Dose Admin Acetaminophen 650 mg 12/23/17 15:32 12/24/17 07:57 Tylenol 325mg Tab PO 650 mg Q6 PRN Administration Fever >100.4 F Acetaminophen 650 mg 12/24/17 14:00 Tylenol 325mg Tab PO 12/25/17 00:01 Q6 FESTUS Albuterol/Ipratropium 3 ml 12/16/17 12:03 12/24/17 08:04 Duoneb 3 Mg/0.5 Mg (3 Ml) Ud INH 3 ml RQ4 PRN Administration Shortness of Breath Dextrose 0 ml 12/16/17 12:08 Dextrose 50% Inj IV STAT PRN Hypoglycemia Protocol Protocol Dextrose 15 gm 12/16/17 12:08 Glutose 15 PO ONCE PRN Hypoglycemia Protocol Protocol Glucagon 1 mg 12/16/17 12:08 Glucagen Diagnostic Kit IM STAT PRN Hypoglycemia Protocol Protocol Heparin Sodium (Porcine) 5,000 units 12/20/17 06:00 12/24/17 05:03 Heparin SC 5,000 units Q8 FESTUS Administration Hydromorphone HCl 0.5 mg 12/17/17 09:53 12/24/17 00:21 Dilaudid IVP 0.5 mg Q4H PRN Administration Pain, severe (8-10) Dextrose 1,000 mls @ 0 mls/hr 12/16/17 12:08 Dextrose 5% In Water 1000 Ml IV .Q0M PRN Hypoglycemia Protocol Protocol Per Protocol Meropenem 500 mg/ Sodium 100 mls @ 100 mls/hr 12/18/17 10:00 12/24/17 09:50 Chloride IVPB 100 mls/hr Q12 FESTUS Administration Protocol BUPIVACAINE 0.125%/0.9% NACL 600 mls @ 4 mls/hr 12/18/17 16:00 12/18/17 18:20 Bupivacaine-Ns 0.125% On-Q Thermoforming Operator IJ 12/24/17 21:59 Not Given ONCE ONE Micafungin Sodium 100 mg/ 100 mls @ 100 mls/hr 12/21/17 10:00 12/24/17 10:41 Sodium Chloride IV 100 mls/hr Q24H FESTUS Administration Protocol Linezolid 600 mg in 300 mls @ 200 mls/hr 12/20/17 22:00 12/24/17 10:53 Zyvox 600mg/300ml D5w IVPB 200 mls/hr Q12 FESTUS Administration Protocol BUPIVACAINE 0.125%/0.9% NACL 600 mls @ 4 mls/hr 12/21/17 10:00 12/21/17 10:08 Bupivacaine-Ns 0.125% On-Q Thermoforming Operator IJ 12/27/17 15:59 4 mls/hr ONCE ONE Administration Sodium Chloride 35 meq/ 1,030.1663 mls @ 42 mls/hr 12/23/17 18:00 12/23/17 17 :35 Magnesium Sulfate 3 meq/ IV 12/24/17 17:59 42 mls/hr Calcium Gluconate 4.5 meq/ .Q24H FESTUS Administration Multivitamins/Vitamin C 10 ml/ Heparin Sodium (Porcine) 1, 000 units/ Amino Acids Sodium Chloride 35 meq/ 1,030.1663 mls @ 42 mls/hr 12/24/17 18:00 Magnesium Sulfate 3 meq/ IV 12/25/17 17:59 Calcium Gluconate 4.5 meq/ .Q24H FESTUS Multivitamins/Vitamin C 10 ml/ Heparin Sodium (Porcine) 1, 000 units/ Amino Acids Insulin Human Regular 0 unit 12/19/17 00:00 12/24/17 05:04 Novolin R SC 1 unit Q6 FESTUS Administration Protocol Pantoprazole Sodium 40 mg 12/23/17 22:00 12/24/17 10:31 Protonix Inj IVP 40 mg Q12H FESTUS Administration Saccharomyces Boulardii 250 mg 12/23/17 22:00 12/24/17 10:31 Florastor PO 250 mg Q12 FESTUS Administration - Patient Studies Lab Studies: Lab Studies 12/24/17 12/24/17 12/24/17 Range/Units 11:31 08:54 06:24 WBC 23.1 H (4.8-10.8) K/uL RBC 2.98 L (3.80-5.20) Mil/uL Hgb 8.3 L (11.0-16.0) g/dL Hct 25.5 L (34.0-47.0) % MCV 85.4 (81.0-99.0) fL MCH 27.8 (27.0-31.0) pg MCHC 32.6 L (33.0-37.0) g/dL RDW 13.8 (11.5-14.5) % Plt Count 176 (130-400) K/uL MPV 10.4 (7.2-11.7) fL Neut % (Auto) 92.0 H (50.0-75.0) % Lymph % (Auto) 3.0 L (20.0-40.0) % [place] % (Auto) 4.2 (0.0-10.0) % Eos % (Auto) 0.7 (0.0-4.0) % Baso % (Auto) 0.1 (0.0-2.0) % Neut # (Auto) 21.3 H (1.8-7.0) K/uL Lymph # (Auto) 0.7 L (1.0-4.3) K/uL [place] # (Auto) 1.0 H (0.0-0.8) K/uL Eos # (Auto) 0.2 (0.0-0.7) K/uL Baso # (Auto) 0.0 (0.0-0.2) K/uL Neutrophils % (Manual) 80 H (50-75) % Band Neutrophils % 8 H (0-2) % Lymphocytes % (Manual) 5 L (20-40) % Monocytes % (Manual) 4 (0-10) % Eosinophils % (Manual) 3 (0-4) % Toxic Granulation Present Platelet Estimate Normal (NORMAL) Hypochromasia (manual) Slight PT 14.0 H (9.7-12.2) SECONDS INR 1.3 Puncture Site pCO2 (35-45) mm/Hg pO2 (80-100) mm/Hg HCO3 (21-28) mmol/L ABG pH (7.35-7.45) ABG Total CO2 (22-28) mmol/L ABG O2 Saturation (95-98) % ABG Base Excess (-2.0-3.0) mmol/L ABG Hemoglobin (11.7-17.4) g/dL ABG Carboxyhemoglobin (0.5-1.5) % POC ABG HHb (Measured) (0.0-5.0) % ABG Methemoglobin (0.0-3.0) % Richard Test A-a O2 Difference mm/Hg Respiratory Index Hgb O2 Saturation (95.0-98.0) % Vent Mode Mechanical Rate FiO2 % Tidal Volume PEEP Sodium (132-148) mmol/L Potassium (3.6-5.2) mmol/L Chloride (98-107) mmol/L Carbon Dioxide (22-30) mmol/L Anion Gap (10-20) BUN (7-17) mg/dL Creatinine (0.7-1.2) mg/dL Est GFR ( Amer) Est GFR (Non-Af Amer) POC Glucose (mg/dL) 193 H (65-110) mg/dL Random Glucose (65-105) mg/dL Calcium (8.6-10.4) mg/dl Phosphorus (2.5-4.5) mg/dL Magnesium (1.6-2.3) mg/dL Total Bilirubin (0.2-1.3) mg/dL AST (14-36) U/L ALT (9-52) U/L Alkaline Phosphatase (38-126) U/L Total Protein (6.3-8.3) g/dL Albumin (3.5-5.0) g/dL Globulin (2.2-3.9) gm/dL Albumin/Globulin Ratio (1.0-2.1) 12/24/17 12/24/17 12/24/17 Range/Units 06:14 05:35 04:34 WBC (4.8-10.8) K/uL RBC (3.80-5.20) Mil/uL Hgb (11.0-16.0) g/dL Hct (34.0-47.0) % MCV (81.0-99.0) fL MCH (27.0-31.0) pg MCHC (33.0-37.0) g/dL RDW (11.5-14.5) % Plt Count (130-400) K/uL MPV (7.2-11.7) fL Neut % (Auto) (50.0-75.0) % Lymph % (Auto) (20.0-40.0) % [place] % (Auto) (0.0-10.0) % Eos % (Auto) (0.0-4.0) % Baso % (Auto) (0.0-2.0) % Neut # (Auto) (1.8-7.0) K/uL Lymph # (Auto) (1.0-4.3) K/uL [place] # (Auto) (0.0-0.8) K/uL Eos # (Auto) (0.0-0.7) K/uL Baso # (Auto) (0.0-0.2) K/uL Neutrophils % (Manual) (50-75) % Band Neutrophils % (0-2) % Lymphocytes % (Manual) (20-40) % Monocytes % (Manual) (0-10) % Eosinophils % (Manual) (0-4) % Toxic Granulation Platelet Estimate (NORMAL) Hypochromasia (manual) PT (9.7-12.2) SECONDS INR Puncture Site Rr pCO2 33 L (35-45) mm/Hg pO2 85 (80-100) mm/Hg HCO3 27.5 (21-28) mmol/L ABG pH 7.51 H (7.35-7.45) ABG Total CO2 27.3 (22-28) mmol/L ABG O2 Saturation 98.4 H (95-98) % ABG Base Excess 3.3 H (-2.0-3.0) mmol/L ABG Hemoglobin 8.7 L (11.7-17.4) g/dL ABG Carboxyhemoglobin 1.7 H (0.5-1.5) % POC ABG HHb (Measured) 1.5 (0.0-5.0) % ABG Methemoglobin 1.5 (0.0-3.0) % Richard Test Pos A-a O2 Difference 159.0 mm/Hg Respiratory Index 1.9 Hgb O2 Saturation 95.2 (95.0-98.0) % Vent Mode Prvc Mechanical Rate 14 FiO2 40.0 % Tidal Volume 500 PEEP 5 Sodium 145 (132-148) mmol/L Potassium 3.3 L (3.6-5.2) mmol/L Chloride 101 (98-107) mmol/L Carbon Dioxide 28 (22-30) mmol/L Anion Gap 18 (10-20) BUN 53 H (7-17) mg/dL Creatinine 4.5 H (0.7-1.2) mg/dL Est GFR ( Amer) 11 Est GFR (Non-Af Amer) 9 POC Glucose (mg/dL) 184 H (65-110) mg/dL Random Glucose 127 H (65-105) mg/dL Calcium 7.0 L (8.6-10.4) mg/dl Phosphorus 3.5 (2.5-4.5) mg/dL Magnesium 2.1 (1.6-2.3) mg/dL Total Bilirubin 0.8 (0.2-1.3) mg/dL AST 53 H (14-36) U/L ALT 27 (9-52) U/L Alkaline Phosphatase 81 (38-126) U/L Total Protein 5.5 L (6.3-8.3) g/dL Albumin 2.9 L (3.5-5.0) g/dL Globulin 2.6 (2.2-3.9) gm/dL Albumin/Globulin Ratio 1.1 (1.0-2.1) 12/23/17 12/23/17 Range/Units 23:22 18:04 WBC (4.8-10.8) K/uL RBC (3.80-5.20) Mil/uL Hgb (11.0-16.0) g/dL Hct (34.0-47.0) % MCV (81.0-99.0) fL MCH (27.0-31.0) pg MCHC (33.0-37.0) g/dL RDW (11.5-14.5) % Plt Count (130-400) K/uL MPV (7.2-11.7) fL Neut % (Auto) (50.0-75.0) % Lymph % (Auto) (20.0-40.0) % [place] % (Auto) (0.0-10.0) % Eos % (Auto) (0.0-4.0) % Baso % (Auto) (0.0-2.0) % Neut # (Auto) (1.8-7.0) K/uL Lymph # (Auto) (1.0-4.3) K/uL [place] # (Auto) (0.0-0.8) K/uL Eos # (Auto) (0.0-0.7) K/uL Baso # (Auto) (0.0-0.2) K/uL Neutrophils % (Manual) (50-75) % Band Neutrophils % (0-2) % Lymphocytes % (Manual) (20-40) % Monocytes % (Manual) (0-10) % Eosinophils % (Manual) (0-4) % Toxic Granulation Platelet Estimate (NORMAL) Hypochromasia (manual) PT (9.7-12.2) SECONDS INR Puncture Site pCO2 (35-45) mm/Hg pO2 (80-100) mm/Hg HCO3 (21-28) mmol/L ABG pH (7.35-7.45) ABG Total CO2 (22-28) mmol/L ABG O2 Saturation (95-98) % ABG Base Excess (-2.0-3.0) mmol/L ABG Hemoglobin (11.7-17.4) g/dL ABG Carboxyhemoglobin (0.5-1.5) % POC ABG HHb (Measured) (0.0-5.0) % ABG Methemoglobin (0.0-3.0) % Richard Test A-a O2 Difference mm/Hg Respiratory Index Hgb O2 Saturation (95.0-98.0) % Vent Mode Mechanical Rate FiO2 % Tidal Volume PEEP Sodium (132-148) mmol/L Potassium (3.6-5.2) mmol/L Chloride (98-107) mmol/L Carbon Dioxide (22-30) mmol/L Anion Gap (10-20) BUN (7-17) mg/dL Creatinine (0.7-1.2) mg/dL Est GFR ( Amer) Est GFR (Non-Af Amer) POC Glucose (mg/dL) 145 H 168 H (65-110) mg/dL Random Glucose (65-105) mg/dL Calcium (8.6-10.4) mg/dl Phosphorus (2.5-4.5) mg/dL Magnesium (1.6-2.3) mg/dL Total Bilirubin (0.2-1.3) mg/dL AST (14-36) U/L ALT (9-52) U/L Alkaline Phosphatase (38-126) U/L Total Protein (6.3-8.3) g/dL Albumin (3.5-5.0) g/dL Globulin (2.2-3.9) gm/dL Albumin/Globulin Ratio (1.0-2.1) Laboratory Results - last 24 hr 12/23/17 12/23/17 12/24/17 18:04 23:22 04:34 WBC RBC Hgb Hct MCV MCH MCHC RDW Plt Count MPV Neut % (Auto) Lymph % (Auto) [place] % (Auto) Eos % (Auto) Baso % (Auto) Neut # (Auto) Lymph # (Auto) [place] # (Auto) Eos # (Auto) Baso # (Auto) Neutrophils % (Manual) Band Neutrophils % Lymphocytes % (Manual) Monocytes % (Manual) Eosinophils % (Manual) Toxic Granulation Platelet Estimate Hypochromasia (manual) PT INR Puncture Site pCO2 pO2 HCO3 ABG pH ABG Total CO2 ABG O2 Saturation ABG Base Excess ABG Hemoglobin ABG Carboxyhemoglobin POC ABG HHb (Measured) ABG Methemoglobin Richard Test A-a O2 Difference Respiratory Index Hgb O2 Saturation Vent Mode Mechanical Rate FiO2 Tidal Volume PEEP Sodium Potassium Chloride Carbon Dioxide Anion Gap BUN Creatinine Est GFR ( Amer) Est GFR (Non-Af Amer) POC Glucose (mg/dL) 168 H 145 H 184 H Random Glucose Calcium Phosphorus Magnesium Total Bilirubin AST ALT Alkaline Phosphatase Total Protein Albumin Globulin Albumin/Globulin Ratio 12/24/17 12/24/17 12/24/17 05:35 06:14 06:24 WBC 23.1 H RBC 2.98 L Hgb 8.3 L Hct 25.5 L MCV 85.4 MCH 27.8 MCHC 32.6 L RDW 13.8 Plt Count 176 MPV 10.4 Neut % (Auto) 92.0 H Lymph % (Auto) 3.0 L [place] % (Auto) 4.2 Eos % (Auto) 0.7 Baso % (Auto) 0.1 Neut # (Auto) 21.3 H Lymph # (Auto) 0.7 L [place] # (Auto) 1.0 H Eos # (Auto) 0.2 Baso # (Auto) 0.0 Neutrophils % (Manual) 80 H Band Neutrophils % 8 H Lymphocytes % (Manual) 5 L Monocytes % (Manual) 4 Eosinophils % (Manual) 3 Toxic Granulation Present Platelet Estimate Normal Hypochromasia (manual) Slight PT INR Puncture Site Rr pCO2 33 L pO2 85 HCO3 27.5 ABG pH 7.51 H ABG Total CO2 27.3 ABG O2 Saturation 98.4 H ABG Base Excess 3.3 H ABG Hemoglobin 8.7 L ABG Carboxyhemoglobin 1.7 H POC ABG HHb (Measured) 1.5 ABG Methemoglobin 1.5 Richard Test Pos A-a O2 Difference 159.0 Respiratory Index 1.9 Hgb O2 Saturation 95.2 Vent Mode Prvc Mechanical Rate 14 FiO2 40.0 Tidal Volume 500 PEEP 5 Sodium 145 Potassium 3.3 L Chloride 101 Carbon Dioxide 28 Anion Gap 18 BUN 53 H Creatinine 4.5 H Est GFR ( Amer) 11 Est GFR (Non-Af Amer) 9 POC Glucose (mg/dL) Random Glucose 127 H Calcium 7.0 L Phosphorus 3.5 Magnesium 2.1 Total Bilirubin 0.8 AST 53 H ALT 27 Alkaline Phosphatase 81 Total Protein 5.5 L Albumin 2.9 L Globulin 2.6 Albumin/Globulin Ratio 1.1 12/24/17 12/24/17 08:54 11:31 WBC RBC Hgb Hct MCV MCH MCHC RDW Plt Count MPV Neut % (Auto) Lymph % (Auto) [place] % (Auto) Eos % (Auto) Baso % (Auto) Neut # (Auto) Lymph # (Auto) [place] # (Auto) Eos # (Auto) Baso # (Auto) Neutrophils % (Manual) Band Neutrophils % Lymphocytes % (Manual) Monocytes % (Manual) Eosinophils % (Manual) Toxic Granulation Platelet Estimate Hypochromasia (manual) PT 14.0 H INR 1.3 Puncture Site pCO2 pO2 HCO3 ABG pH ABG Total CO2 ABG O2 Saturation ABG Base Excess ABG Hemoglobin ABG Carboxyhemoglobin POC ABG HHb (Measured) ABG Methemoglobin Richard Test A-a O2 Difference Respiratory Index Hgb O2 Saturation Vent Mode Mechanical Rate FiO2 Tidal Volume PEEP Sodium Potassium Chloride Carbon Dioxide Anion Gap BUN Creatinine Est GFR ( Amer) Est GFR (Non-Af Amer) POC Glucose (mg/dL) 193 H Random Glucose Calcium Phosphorus Magnesium Total Bilirubin AST ALT Alkaline Phosphatase Total Protein Albumin Globulin Albumin/Globulin Ratio Fingerstick Blood Sugar Results: 168 Critical Care Progress Note - Nutrition Nutrition: Nutrition Category Date Time Status NPO Diet [DIET] Diets 12/20/17 Dinner Active Assessment/Plan - Assessment and Plan (Free Text) Assessment: This is a 77yo female with history of hypertension, COPD, breast cancer s/p lumpectomy that presented to same day 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 During the procedure, patient experienced a significant amount of bleeding which was treated with a combination of clipping , electrocautery and epinephrine. Bleeding was significantly reduced however patient was subsequently admitted to ICU for close observation. Patient was admitted to ICU due to SBP 220/140s initially on cardene drip x 1 - 2 hours- now normotensive; patient now in ATN with CRE of 6.8. Returned to OR 12/18/17 due to increasing free air noted on repeat CT scan ; s/p ex lap primary repair of duodenal perforation, jourdan patch. Omentectomy. Picc line placed 12/20/17 Right shiley catheter placed - 12/20. Dialysis 12/20 and 12/21. 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 Alatorre - Previous hemorrhage - stabilized with a combination of clipping, electrocautery and epinephrine. - PPI Q12, IVF - Ct chest, abdomen, pelvis 2/2 abdominal pain and guarding on exam: Mild increase in the extent of pneumoperitoneum. Increasing ascites. Extensive gas adjacent to 2nd duodenum and nasim hepatis. Status post cholecystectomy. Nasogastric tube. Fluid in retroperitoneum and gas in perinephric space on right side. Cannot rule out pancreatitis. Please correlate. Trace right pleural effusion. No pulmonary infiltrate. - Upper GI series - Free air noted - As per surgery patient is for OR due to increasing free air ; s/p ex lap primary repair of duodenal perforation, jourdan patch. Omentectomy. 12/18 A: Pancreatic nodule - Questionable 9 mm rounded fluid density mass in the pancreatic body. This was not clearly appreciated on prior CT examination of 12/16/2017. Further evaluation is advised when clinically feasible with multiphasic contrast- enhanced CT. A: Transaminitis, Elevated T. Bili - downtrending - Viral hepatitis - negative - Abominal US - Diffuse increased echogenicity in the liver may reflect hepatic steatosis however parenchymal infectious/ inflammatory etiologies cannot be entirely excluded. Clinical and laboratory correlation is advised. Mild perihepatic ascites. Endo: A: Thyroid Nodule - There is a 1.9 cm mass in the lower pole of the left thyroid lobe. - Correlate with thyroid ultrasound examination. A: Hypocalcemia - Repleting IV A: IGT - HgA1c 5.9 Renal: A: ARF - Improving with HD - 2/2 ATN - Avoid nephrotoxic drugs - Abdominal US- no sign of renal obstruction - Inserted bruce - Right Shiley catheter inserted 12/20- removed 12/24 - Dialysis 12/20, 12/21, 12/23 - - Possible permacath ID: A: Bandemia - resolving ID Consulted - Dr. Quinonez - Afebrile, vitals stable, no leukocytosis, no source of infection - Patient was prince-cultured 12/17/17 - all negative - Bandemia increasing- 61, Procal - 12.04, lactate 2.4--> 1.7 - Changed zosyn to Meropenem renally dosed - Started 12/20/17 linezolid (GPC coverage) and micafungin 12/21 (fungal coverage ) -- gross abdominal spillage, de-escalate as per intra-op cultures A: Fever - All Cultures negative to date - Repeat BC and catheter tip cultures sent 12/24 2/ fevers - Right dialysis catheter removed 12/24 - f/u diff, procal A: Diarrhea - Likely 08/09 to abx - Diff sent, probiotic started Heme/ Onc: A: Anemia - Hemoglobin baseline 13-14 - CT chest, ab, pelvis - no evidence of internal hemorrhage - s/p 1 unit 12/20 - Continue to monitor A: Hx breast cancer s/p lumpectomy Prophylaxis - PPI Q12 - SCDs, VTE c/i post op / concern for bleeding - Right PICC line 12/20, Right shiley cath inserted 12/20 - REMOVED 12/24 - Currently on TPN, with plans to extubate DW Estefania Schwartz DO, PGY-1 <Delgado Shelton S - Last Filed: 12/24/17 18:24> CCU Objective - Vital Signs / Intake & Output Vital Signs (Last 4 hours): Vital Signs Temp Pulse Resp BP Pulse Ox 12/24/17 17:00 95 H 24 134/52 L 100 12/24/17 16:00 101.6 F H 100 H 27 H 139/48 L 98 12/24/17 15:59 104 H 26 H 159/57 H 99 12/24/17 15:00 108 H 28 H 100 Intake and Output (Last 8hrs): Intake & Output 12/24/17 12/24/17 12/24/17 06:59 14:59 22:59 Intake Total 678 1094 126 Output Total 598 135 25 Balance 80 959 101 Weight 250 lb Intake: Intake, IV Amount 678 994 126 Left Antecubital 200 Right Distal Port PICC 300 500 right picc 2nd port 378 294 126 Other 100 Output: Drainage 360 80 KORI 1 0 0 KORI 2 60 80 Right Nare 300 Urine 153 55 25 Urethral (Bruce) 153 55 25 Stool 85 - Medications Active Medications: Active Medications Generic Name Dose Route Start Last Admin Trade Name Freq PRN Reason Stop Dose Admin Acetaminophen 650 mg 12/23/17 15:32 12/24/17 07:57 Tylenol 325mg Tab PO 650 mg Q6 PRN Administration Fever >100.4 F Acetaminophen 650 mg 12/24/17 14:00 12/24/17 14:18 Tylenol 325mg Tab PO 12/25/17 00:01 650 mg Q6 FESTUS Administration Albuterol/Ipratropium 3 ml 12/16/17 12:03 12/24/17 08:04 Duoneb 3 Mg/0.5 Mg (3 Ml) Ud INH 3 ml RQ4 PRN Administration Shortness of Breath Dextrose 0 ml 12/16/17 12:08 Dextrose 50% Inj IV STAT PRN Hypoglycemia Protocol Protocol Dextrose 15 gm 12/16/17 12:08 Glutose 15 PO ONCE PRN Hypoglycemia Protocol Protocol Epoetin Juan F 8,000 unit 12/25/17 09:00 Procrit SC 12/30/17 09:01 [facility] FESTUS Glucagon 1 mg 12/16/17 12:08 Glucagen Diagnostic Kit IM STAT PRN Hypoglycemia Protocol Protocol Heparin Sodium (Porcine) 5,000 units 12/20/17 06:00 12/24/17 14:18 Heparin SC 5,000 units Q8 FESTUS Administration Hydromorphone HCl 0.5 mg 12/17/17 09:53 12/24/17 00:21 Dilaudid IVP 0.5 mg Q4H PRN Administration Pain, severe (8-10) Dextrose 1,000 mls @ 0 mls/hr 12/16/17 12:08 Dextrose 5% In Water 1000 Ml IV .Q0M PRN Hypoglycemia Protocol Protocol Per Protocol Meropenem 500 mg/ Sodium 100 mls @ 100 mls/hr 12/18/17 10:00 12/24/17 09:50 Chloride IVPB 100 mls/hr Q12 FESTUS Administration Protocol BUPIVACAINE 0.125%/0.9% NACL 600 mls @ 4 mls/hr 12/18/17 16:00 12/18/17 18:20 Bupivacaine-Ns 0.125% On-Q Thermoforming Operator IJ 12/24/17 21:59 Not Given ONCE ONE Micafungin Sodium 100 mg/ 100 mls @ 100 mls/hr 12/21/17 10:00 12/24/17 10:41 Sodium Chloride IV 100 mls/hr Q24H FESTUS Administration Protocol Linezolid 600 mg in 300 mls @ 200 mls/hr 12/20/17 22:00 12/24/17 10:53 Zyvox 600mg/300ml D5w IVPB 200 mls/hr Q12 FESTUS Administration Protocol BUPIVACAINE 0.125%/0.9% NACL 600 mls @ 4 mls/hr 12/21/17 10:00 12/21/17 10:08 Bupivacaine-Ns 0.125% On-Q Thermoforming Operator IJ 12/27/17 15:59 4 mls/hr ONCE ONE Administration Sodium Chloride 35 meq/ 1,030.1663 mls @ 42 mls/hr 12/24/17 18:00 12/24/17 17 :39 Magnesium Sulfate 3 meq/ IV 12/25/17 17:59 42 mls/hr Calcium Gluconate 4.5 meq/ .Q24H FESTUS Administration Multivitamins/Vitamin C 10 ml/ Heparin Sodium (Porcine) 1, 000 units/ Amino Acids Insulin Human Regular 0 unit 12/19/17 00:00 12/24/17 18:08 Novolin R SC 1 unit Q6 FESTUS Administration Protocol Pantoprazole Sodium 40 mg 12/23/17 22:00 12/24/17 10:31 Protonix Inj IVP 40 mg Q12H FESTUS Administration Saccharomyces Boulardii 250 mg 12/23/17 22:00 12/24/17 10:31 Florastor PO 250 mg Q12 FESTUS Administration - Patient Studies Lab Studies: Lab Studies 12/24/17 12/24/17 12/24/17 Range/Units 17:28 16:10 11:31 WBC (4.8-10.8) K/uL RBC (3.80-5.20) Mil/uL Hgb (11.0-16.0) g/dL Hct (34.0-47.0) % MCV (81.0-99.0) fL MCH (27.0-31.0) pg MCHC (33.0-37.0) g/dL RDW (11.5-14.5) % Plt Count (130-400) K/uL MPV (7.2-11.7) fL Neut % (Auto) (50.0-75.0) % Lymph % (Auto) (20.0-40.0) % [place] % (Auto) (0.0-10.0) % Eos % (Auto) (0.0-4.0) % Baso % (Auto) (0.0-2.0) % Neut # (Auto) (1.8-7.0) K/uL Lymph # (Auto) (1.0-4.3) K/uL [place] # (Auto) (0.0-0.8) K/uL Eos # (Auto) (0.0-0.7) K/uL Baso # (Auto) (0.0-0.2) K/uL Neutrophils % (Manual) (50-75) % Band Neutrophils % (0-2) % Lymphocytes % (Manual) (20-40) % Monocytes % (Manual) (0-10) % Eosinophils % (Manual) (0-4) % Toxic Granulation Platelet Estimate (NORMAL) Hypochromasia (manual) PT (9.7-12.2) SECONDS INR Puncture Site pCO2 (35-45) mm/Hg pO2 (80-100) mm/Hg HCO3 (21-28) mmol/L ABG pH (7.35-7.45) ABG Total CO2 (22-28) mmol/L ABG O2 Saturation (95-98) % ABG Base Excess (-2.0-3.0) mmol/L ABG Hemoglobin (11.7-17.4) g/dL ABG Carboxyhemoglobin (0.5-1.5) % POC ABG HHb (Measured) (0.0-5.0) % ABG Methemoglobin (0.0-3.0) % Richard Test A-a O2 Difference mm/Hg Respiratory Index Hgb O2 Saturation (95.0-98.0) % Vent Mode Mechanical Rate FiO2 % Tidal Volume PEEP Sodium (132-148) mmol/L Potassium (3.6-5.2) mmol/L Chloride (98-107) mmol/L Carbon Dioxide (22-30) mmol/L Anion Gap (10-20) BUN (7-17) mg/dL Creatinine (0.7-1.2) mg/dL Est GFR ( Amer) Est GFR (Non-Af Amer) POC Glucose (mg/dL) 153 H 193 H (65-110) mg/dL Random Glucose (65-105) mg/dL Calcium (8.6-10.4) mg/dl Phosphorus (2.5-4.5) mg/dL Magnesium (1.6-2.3) mg/dL Total Bilirubin (0.2-1.3) mg/dL AST (14-36) U/L ALT (9-52) U/L Alkaline Phosphatase (38-126) U/L Total Protein (6.3-8.3) g/dL Albumin (3.5-5.0) g/dL Globulin (2.2-3.9) gm/dL Albumin/Globulin Ratio (1.0-2.1) Procalcitonin (0.19-0.49) NG/ML C. difficile Ag & Toxin Negative (NEGATIVE) 12/24/17 12/24/17 12/24/17 Range/Units 09:41 08:54 06:24 WBC 23.1 H (4.8-10.8) K/uL RBC 2.98 L (3.80-5.20) Mil/uL Hgb 8.3 L (11.0-16.0) g/dL Hct 25.5 L (34.0-47.0) % MCV 85.4 (81.0-99.0) fL MCH 27.8 (27.0-31.0) pg MCHC 32.6 L (33.0-37.0) g/dL RDW 13.8 (11.5-14.5) % Plt Count 176 (130-400) K/uL MPV 10.4 (7.2-11.7) fL Neut % (Auto) 92.0 H (50.0-75.0) % Lymph % (Auto) 3.0 L (20.0-40.0) % [place] % (Auto) 4.2 (0.0-10.0) % Eos % (Auto) 0.7 (0.0-4.0) % Baso % (Auto) 0.1 (0.0-2.0) % Neut # (Auto) 21.3 H (1.8-7.0) K/uL Lymph # (Auto) 0.7 L (1.0-4.3) K/uL [place] # (Auto) 1.0 H (0.0-0.8) K/uL Eos # (Auto) 0.2 (0.0-0.7) K/uL Baso # (Auto) 0.0 (0.0-0.2) K/uL Neutrophils % (Manual) 80 H (50-75) % Band Neutrophils % 8 H (0-2) % Lymphocytes % (Manual) 5 L (20-40) % Monocytes % (Manual) 4 (0-10) % Eosinophils % (Manual) 3 (0-4) % Toxic Granulation Present Platelet Estimate Normal (NORMAL) Hypochromasia (manual) Slight PT 14.0 H (9.7-12.2) SECONDS INR 1.3 Puncture Site pCO2 (35-45) mm/Hg pO2 (80-100) mm/Hg HCO3 (21-28) mmol/L ABG pH (7.35-7.45) ABG Total CO2 (22-28) mmol/L ABG O2 Saturation (95-98) % ABG Base Excess (-2.0-3.0) mmol/L ABG Hemoglobin (11.7-17.4) g/dL ABG Carboxyhemoglobin (0.5-1.5) % POC ABG HHb (Measured) (0.0-5.0) % ABG Methemoglobin (0.0-3.0) % Richard Test A-a O2 Difference mm/Hg Respiratory Index Hgb O2 Saturation (95.0-98.0) % Vent Mode Mechanical Rate FiO2 % Tidal Volume PEEP Sodium (132-148) mmol/L Potassium (3.6-5.2) mmol/L Chloride (98-107) mmol/L Carbon Dioxide (22-30) mmol/L Anion Gap (10-20) BUN (7-17) mg/dL Creatinine (0.7-1.2) mg/dL Est GFR ( Amer) Est GFR (Non-Af Amer) POC Glucose (mg/dL) (65-110) mg/dL Random Glucose (65-105) mg/dL Calcium (8.6-10.4) mg/dl Phosphorus (2.5-4.5) mg/dL Magnesium (1.6-2.3) mg/dL Total Bilirubin (0.2-1.3) mg/dL AST (14-36) U/L ALT (9-52) U/L Alkaline Phosphatase (38-126) U/L Total Protein (6.3-8.3) g/dL Albumin (3.5-5.0) g/dL Globulin (2.2-3.9) gm/dL Albumin/Globulin Ratio (1.0-2.1) Procalcitonin 20.22 H (0.19-0.49) NG/ML C. difficile Ag & Toxin (NEGATIVE) 12/24/17 12/24/17 12/24/17 Range/Units 06:14 05:35 04:34 WBC (4.8-10.8) K/uL RBC (3.80-5.20) Mil/uL Hgb (11.0-16.0) g/dL Hct (34.0-47.0) % MCV (81.0-99.0) fL MCH (27.0-31.0) pg MCHC (33.0-37.0) g/dL RDW (11.5-14.5) % Plt Count (130-400) K/uL MPV (7.2-11.7) fL Neut % (Auto) (50.0-75.0) % Lymph % (Auto) (20.0-40.0) % [place] % (Auto) (0.0-10.0) % Eos % (Auto) (0.0-4.0) % Baso % (Auto) (0.0-2.0) % Neut # (Auto) (1.8-7.0) K/uL Lymph # (Auto) (1.0-4.3) K/uL [place] # (Auto) (0.0-0.8) K/uL Eos # (Auto) (0.0-0.7) K/uL Baso # (Auto) (0.0-0.2) K/uL Neutrophils % (Manual) (50-75) % Band Neutrophils % (0-2) % Lymphocytes % (Manual) (20-40) % Monocytes % (Manual) (0-10) % Eosinophils % (Manual) (0-4) % Toxic Granulation Platelet Estimate (NORMAL) Hypochromasia (manual) PT (9.7-12.2) SECONDS INR Puncture Site Rr pCO2 33 L (35-45) mm/Hg pO2 85 (80-100) mm/Hg HCO3 27.5 (21-28) mmol/L ABG pH 7.51 H (7.35-7.45) ABG Total CO2 27.3 (22-28) mmol/L ABG O2 Saturation 98.4 H (95-98) % ABG Base Excess 3.3 H (-2.0-3.0) mmol/L ABG Hemoglobin 8.7 L (11.7-17.4) g/dL ABG Carboxyhemoglobin 1.7 H (0.5-1.5) % POC ABG HHb (Measured) 1.5 (0.0-5.0) % ABG Methemoglobin 1.5 (0.0-3.0) % Richard Test Pos A-a O2 Difference 159.0 mm/Hg Respiratory Index 1.9 Hgb O2 Saturation 95.2 (95.0-98.0) % Vent Mode Prvc Mechanical Rate 14 FiO2 40.0 % Tidal Volume 500 PEEP 5 Sodium 145 (132-148) mmol/L Potassium 3.3 L (3.6-5.2) mmol/L Chloride 101 (98-107) mmol/L Carbon Dioxide 28 (22-30) mmol/L Anion Gap 18 (10-20) BUN 53 H (7-17) mg/dL Creatinine 4.5 H (0.7-1.2) mg/dL Est GFR ( Amer) 11 Est GFR (Non-Af Amer) 9 POC Glucose (mg/dL) 184 H (65-110) mg/dL Random Glucose 127 H (65-105) mg/dL Calcium 7.0 L (8.6-10.4) mg/dl Phosphorus 3.5 (2.5-4.5) mg/dL Magnesium 2.1 (1.6-2.3) mg/dL Total Bilirubin 0.8 (0.2-1.3) mg/dL AST 53 H (14-36) U/L ALT 27 (9-52) U/L Alkaline Phosphatase 81 (38-126) U/L Total Protein 5.5 L (6.3-8.3) g/dL Albumin 2.9 L (3.5-5.0) g/dL Globulin 2.6 (2.2-3.9) gm/dL Albumin/Globulin Ratio 1.1 (1.0-2.1) Procalcitonin (0.19-0.49) NG/ML C. difficile Ag & Toxin (NEGATIVE) 12/23/17 Range/Units 23:22 WBC (4.8-10.8) K/uL RBC (3.80-5.20) Mil/uL Hgb (11.0-16.0) g/dL Hct (34.0-47.0) % MCV (81.0-99.0) fL MCH (27.0-31.0) pg MCHC (33.0-37.0) g/dL RDW (11.5-14.5) % Plt Count (130-400) K/uL MPV (7.2-11.7) fL Neut % (Auto) (50.0-75.0) % Lymph % (Auto) (20.0-40.0) % [place] % (Auto) (0.0-10.0) % Eos % (Auto) (0.0-4.0) % Baso % (Auto) (0.0-2.0) % Neut # (Auto) (1.8-7.0) K/uL Lymph # (Auto) (1.0-4.3) K/uL [place] # (Auto) (0.0-0.8) K/uL Eos # (Auto) (0.0-0.7) K/uL Baso # (Auto) (0.0-0.2) K/uL Neutrophils % (Manual) (50-75) % Band Neutrophils % (0-2) % Lymphocytes % (Manual) (20-40) % Monocytes % (Manual) (0-10) % Eosinophils % (Manual) (0-4) % Toxic Granulation Platelet Estimate (NORMAL) Hypochromasia (manual) PT (9.7-12.2) SECONDS INR Puncture Site pCO2 (35-45) mm/Hg pO2 (80-100) mm/Hg HCO3 (21-28) mmol/L ABG pH (7.35-7.45) ABG Total CO2 (22-28) mmol/L ABG O2 Saturation (95-98) % ABG Base Excess (-2.0-3.0) mmol/L ABG Hemoglobin (11.7-17.4) g/dL ABG Carboxyhemoglobin (0.5-1.5) % POC ABG HHb (Measured) (0.0-5.0) % ABG Methemoglobin (0.0-3.0) % Richard Test A-a O2 Difference mm/Hg Respiratory Index Hgb O2 Saturation (95.0-98.0) % Vent Mode Mechanical Rate FiO2 % Tidal Volume PEEP Sodium (132-148) mmol/L Potassium (3.6-5.2) mmol/L Chloride (98-107) mmol/L Carbon Dioxide (22-30) mmol/L Anion Gap (10-20) BUN (7-17) mg/dL Creatinine (0.7-1.2) mg/dL Est GFR ( Amer) Est GFR (Non-Af Amer) POC Glucose (mg/dL) 145 H (65-110) mg/dL Random Glucose (65-105) mg/dL Calcium (8.6-10.4) mg/dl Phosphorus (2.5-4.5) mg/dL Magnesium (1.6-2.3) mg/dL Total Bilirubin (0.2-1.3) mg/dL AST (14-36) U/L ALT (9-52) U/L Alkaline Phosphatase (38-126) U/L Total Protein (6.3-8.3) g/dL Albumin (3.5-5.0) g/dL Globulin (2.2-3.9) gm/dL Albumin/Globulin Ratio (1.0-2.1) Procalcitonin (0.19-0.49) NG/ML C. difficile Ag & Toxin (NEGATIVE) Laboratory Results - last 24 hr 12/23/17 12/24/17 12/24/17 23:22 04:34 05:35 WBC RBC Hgb Hct MCV MCH MCHC RDW Plt Count MPV Neut % (Auto) Lymph % (Auto) [place] % (Auto) Eos % (Auto) Baso % (Auto) Neut # (Auto) Lymph # (Auto) [place] # (Auto) Eos # (Auto) Baso # (Auto) Neutrophils % (Manual) Band Neutrophils % Lymphocytes % (Manual) Monocytes % (Manual) Eosinophils % (Manual) Toxic Granulation Platelet Estimate Hypochromasia (manual) PT INR Puncture Site Rr pCO2 33 L pO2 85 HCO3 27.5 ABG pH 7.51 H ABG Total CO2 27.3 ABG O2 Saturation 98.4 H ABG Base Excess 3.3 H ABG Hemoglobin 8.7 L ABG Carboxyhemoglobin 1.7 H POC ABG HHb (Measured) 1.5 ABG Methemoglobin 1.5 Richard Test Pos A-a O2 Difference 159.0 Respiratory Index 1.9 Hgb O2 Saturation 95.2 Vent Mode Prvc Mechanical Rate 14 FiO2 40.0 Tidal Volume 500 PEEP 5 Sodium Potassium Chloride Carbon Dioxide Anion Gap BUN Creatinine Est GFR ( Amer) Est GFR (Non-Af Amer) POC Glucose (mg/dL) 145 H 184 H Random Glucose Calcium Phosphorus Magnesium Total Bilirubin AST ALT Alkaline Phosphatase Total Protein Albumin Globulin Albumin/Globulin Ratio Procalcitonin C. difficile Ag & Toxin 12/24/17 12/24/17 12/24/17 06:14 06:24 08:54 WBC 23.1 H RBC 2.98 L Hgb 8.3 L Hct 25.5 L MCV 85.4 MCH 27.8 MCHC 32.6 L RDW 13.8 Plt Count 176 MPV 10.4 Neut % (Auto) 92.0 H Lymph % (Auto) 3.0 L [place] % (Auto) 4.2 Eos % (Auto) 0.7 Baso % (Auto) 0.1 Neut # (Auto) 21.3 H Lymph # (Auto) 0.7 L [place] # (Auto) 1.0 H Eos # (Auto) 0.2 Baso # (Auto) 0.0 Neutrophils % (Manual) 80 H Band Neutrophils % 8 H Lymphocytes % (Manual) 5 L Monocytes % (Manual) 4 Eosinophils % (Manual) 3 Toxic Granulation Present Platelet Estimate Normal Hypochromasia (manual) Slight PT 14.0 H INR 1.3 Puncture Site pCO2 pO2 HCO3 ABG pH ABG Total CO2 ABG O2 Saturation ABG Base Excess ABG Hemoglobin ABG Carboxyhemoglobin POC ABG HHb (Measured) ABG Methemoglobin Richard Test A-a O2 Difference Respiratory Index Hgb O2 Saturation Vent Mode Mechanical Rate FiO2 Tidal Volume PEEP Sodium 145 Potassium 3.3 L Chloride 101 Carbon Dioxide 28 Anion Gap 18 BUN 53 H Creatinine 4.5 H Est GFR ( Amer) 11 Est GFR (Non-Af Amer) 9 POC Glucose (mg/dL) Random Glucose 127 H Calcium 7.0 L Phosphorus 3.5 Magnesium 2.1 Total Bilirubin 0.8 AST 53 H ALT 27 Alkaline Phosphatase 81 Total Protein 5.5 L Albumin 2.9 L Globulin 2.6 Albumin/Globulin Ratio 1.1 Procalcitonin C. difficile Ag & Toxin 12/24/17 12/24/17 12/24/17 09:41 11:31 16:10 WBC RBC Hgb Hct MCV MCH MCHC RDW Plt Count MPV Neut % (Auto) Lymph % (Auto) [place] % (Auto) Eos % (Auto) Baso % (Auto) Neut # (Auto) Lymph # (Auto) [place] # (Auto) Eos # (Auto) Baso # (Auto) Neutrophils % (Manual) Band Neutrophils % Lymphocytes % (Manual) Monocytes % (Manual) Eosinophils % (Manual) Toxic Granulation Platelet Estimate Hypochromasia (manual) PT INR Puncture Site pCO2 pO2 HCO3 ABG pH ABG Total CO2 ABG O2 Saturation ABG Base Excess ABG Hemoglobin ABG Carboxyhemoglobin POC ABG HHb (Measured) ABG Methemoglobin Richard Test A-a O2 Difference Respiratory Index Hgb O2 Saturation Vent Mode Mechanical Rate FiO2 Tidal Volume PEEP Sodium Potassium Chloride Carbon Dioxide Anion Gap BUN Creatinine Est GFR ( Amer) Est GFR (Non-Af Amer) POC Glucose (mg/dL) 193 H Random Glucose Calcium Phosphorus Magnesium Total Bilirubin AST ALT Alkaline Phosphatase Total Protein Albumin Globulin Albumin/Globulin Ratio Procalcitonin 20.22 H C. difficile Ag & Toxin Negative 12/24/17 17:28 WBC RBC Hgb Hct MCV MCH MCHC RDW Plt Count MPV Neut % (Auto) Lymph % (Auto) [place] % (Auto) Eos % (Auto) Baso % (Auto) Neut # (Auto) Lymph # (Auto) [place] # (Auto) Eos # (Auto) Baso # (Auto) Neutrophils % (Manual) Band Neutrophils % Lymphocytes % (Manual) Monocytes % (Manual) Eosinophils % (Manual) Toxic Granulation Platelet Estimate Hypochromasia (manual) PT INR Puncture Site pCO2 pO2 HCO3 ABG pH ABG Total CO2 ABG O2 Saturation ABG Base Excess ABG Hemoglobin ABG Carboxyhemoglobin POC ABG HHb (Measured) ABG Methemoglobin Richard Test A-a O2 Difference Respiratory Index Hgb O2 Saturation Vent Mode Mechanical Rate FiO2 Tidal Volume PEEP Sodium Potassium Chloride Carbon Dioxide Anion Gap BUN Creatinine Est GFR ( Amer) Est GFR (Non-Af Amer) POC Glucose (mg/dL) 153 H Random Glucose Calcium Phosphorus Magnesium Total Bilirubin AST ALT Alkaline Phosphatase Total Protein Albumin Globulin Albumin/Globulin Ratio Procalcitonin C. difficile Ag & Toxin Critical Care Progress Note - Nutrition Nutrition: Nutrition Category Date Time Status NPO Diet [DIET] Diets 12/20/17 Dinner Active Attending/Attestation - Attestation I have personally seen and examined this patient.: Yes I have fully participated in the care of the patient.: Yes I have reviewed all pertinent clinical information: Yes Notes (Text): 12/24/17 18:23 patient seen and examined in the intensive care unit. Patient on CPAP requiring high pressure support and respiratory rate in the 30s with high frequency tidal volume ratio Continue antibiotics Femoral catheter discontinued because of elevated white count and fever Possible permacath insertion tomorrow Continue hemodialysis
--- NOTE | 2017-12-24 14:27 | CP.PCM.PN ---
Subjective - Date & Time of Evaluation Date of Evaluation: 12/24/17 Time of Evaluation: 14:25 - Subjective Subjective: Nephrology Consultation Note: Assessment: critical oliguric Acute Kidney Injury (N17.9) likely hemodynamic injury leading to ATN with Pulmonary congestion, started dialysis 12/20/17 HAGMA with respi compensation, hypocalcemia with Vit D insuff (level 23) carcinoid HTN crisis s/p resection now resolved acute abdomen with perforation s/p repair 12/18/17 (ex lap) hypertension, COPD, breast cancer s/p lumpectomy and duodenal neuroendocrine tumor Plan no acute need for HD today. pt febrile. can remove femoral catheter. plan to observe without HD and watch for renal recovery. defer plan for permacath for now. No ACEI/ARB due to MANFRED. ]maintain hemodynamics stable. Monitor Input/Output, daily weights and renal function with basic metabolic panel minimize IVF agree with IV calcium gluconate supplementation as needed anemia: PRBC as needed. gave epogen 8000 unit 12/24/17 will give Vit D and iron/MVI once pt on diet Dose meds/antibiotics for reduced GFR and dialysis status. Avoid fleets enema/ magnesium based laxatives. Avoid nephrotoxins/NSAIDs/ iodinated contrast ( unless needed emergently) Glycemic control Further work up/management as per primary team Thanks for allowing me to participate in care of your patient. Will follow patient with you. Please call if any Qs. 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 she also had HTN crisis which was treated with cardene drip. renal consult for MANFRED eval. also found to have free air in abdomen Denies OTC/herbal meds or NSAIDs No recent iodinated contrast exposure. Noted obvious episodes of low BP (89/51). ROS: unable as pt intubated Physical Examination: General Appearance: remains intubated, better appearing Vitals reviewed and noted as below Head; Atraumatic, normocephalic ENT: orally intubated EYES: Pupils are equal, round and reactive to light accommodation. Eye muscles and extraocular movement intact. Sclera is anicteric. Neck; supple no lymphadenopathy, no thyromegaly or bruit Lungs: Normal respiratory rate/effort. Breath sounds bilateral equal and bilateral clearer Heart: Normal rate. s1s2 normal. No rub or gallop. Extremities: no edema. No varicose veins Neurological: Patient is awake Skin: Warm and dry. Normal turgor. No rash. Palpitation: Normal elasticity for age Abdomen: no abdominal tenderness with out guarding but no rigidity no organomegaly s/p exlap Psych: unable MSK: no joint tenderness or swelling. Digits and nails normal, no deformity : kidney or bladder not palpable. has bruce with dark colored urine Labs/imaging reviewed. Past medical history, past surgical history, family history, social history, allergy reviewed and noted as below Family hx: no hx of CKD. Rest non-contributory renal imaging: WNL FeNa 0.7% UA 1+ protein no blood Objective - Vital Signs/Intake and Output Vital Signs (last 24 hours): Temp Pulse Resp BP Pulse Ox 101 F H 104 H 25 H 137/59 L 100 12/24/17 12:30 12/24/17 14:00 12/24/17 14:00 12/24/17 14:00 12/24/17 14:00 Intake and Output: 12/24/17 12/24/17 06:59 18:59 Intake Total 946 1052 Output Total 655 30 Balance 291 1022 - Medications Medications: Current Medications Acetaminophen (Tylenol 325mg Tab) 650 mg PO Q6 PRN PRN Reason: Fever >100.4 F Last Admin: 12/24/17 07:57 Dose: 650 mg Acetaminophen (Tylenol 325mg Tab) 650 mg PO Q6 [facility] Stop: 12/25/17 00:01 Albuterol/Ipratropium (Duoneb 3 Mg/0.5 Mg (3 Ml) Ud) 3 ml INH RQ4 PRN PRN Reason: Shortness of Breath Last Admin: 12/24/17 08:04 Dose: 3 ml Dextrose (Dextrose 50% Inj) 0 ml IV STAT PRN; Protocol PRN Reason: Hypoglycemia Protocol Dextrose (Glutose 15) 15 gm PO ONCE PRN; Protocol PRN Reason: Hypoglycemia Protocol Glucagon (Glucagen Diagnostic Kit) 1 mg IM STAT PRN; Protocol PRN Reason: Hypoglycemia Protocol Heparin Sodium (Porcine) (Heparin) 5,000 units SC Q8 [facility] Last Admin: 12/24/17 14:18 Dose: 5,000 units Hydromorphone HCl (Dilaudid) 0.5 mg IVP Q4H PRN PRN Reason: Pain, severe (8-10) Last Admin: 12/24/17 00:21 Dose: 0.5 mg Dextrose (Dextrose 5% In Water 1000 Ml) 1,000 mls @ 0 mls/hr IV .Q0M PRN; Protocol; Per Protocol PRN Reason: Hypoglycemia Protocol Meropenem 500 mg/ Sodium (Chloride) 100 mls @ 100 mls/hr IVPB Q12 [facility] PRN Reason: Protocol Last Admin: 12/24/17 09:50 Dose: 100 mls/hr BUPIVACAINE 0.125%/0.9% NACL (Bupivacaine-Ns 0.125% On-Q Supercalender Operator) 600 mls @ 4 mls/ hr IJ ONCE ONE Stop: 12/24/17 21:59 Last Admin: 12/18/17 18:20 Dose: Not Given Micafungin Sodium 100 mg/ (Sodium Chloride) 100 mls @ 100 mls/hr IV Q24H [facility] PRN Reason: Protocol Last Admin: 12/24/17 10:41 Dose: 100 mls/hr Linezolid (Zyvox 600mg/300ml D5w) 600 mg in 300 mls @ 200 mls/hr IVPB Q12 [facility] PRN Reason: Protocol Last Admin: 12/24/17 10:53 Dose: 200 mls/hr BUPIVACAINE 0.125%/0.9% NACL (Bupivacaine-Ns 0.125% On-Q Supercalender Operator) 600 mls @ 4 mls/ hr IJ ONCE ONE Stop: 12/27/17 15:59 Last Admin: 12/21/17 10:08 Dose: 4 mls/hr Sodium Chloride 35 meq/Magnesium Sulfate 3 meq/Calcium Gluconate 4.5 meq/ Multivitamins/Vitamin C 10 ml/Heparin Sodium (Porcine) 1, 000 units/ Amino Acids 1,030.1663 mls @ 42 mls/hr IV .Q24H [facility] Stop: 12/24/17 17:59 Last Admin: 12/23/17 17:35 Dose: 42 mls/hr Sodium Chloride 35 meq/Magnesium Sulfate 3 meq/Calcium Gluconate 4.5 meq/ Multivitamins/Vitamin C 10 ml/Heparin Sodium (Porcine) 1, 000 units/ Amino Acids 1,030.1663 mls @ 42 mls/hr IV .Q24H [facility] Stop: 12/25/17 17:59 Insulin Human Regular (Novolin R) 0 unit SC Q6 [facility] PRN Reason: Protocol Last Admin: 12/24/17 13:02 Dose: 1 unit Pantoprazole Sodium (Protonix Inj) 40 mg IVP Q12H [facility] Last Admin: 12/24/17 10:31 Dose: 40 mg Saccharomyces Boulardii (Florastor) 250 mg PO Q12 [facility] Last Admin: 12/24/17 10:31 Dose: 250 mg - Labs Labs: 12/24/17 06:24 12/24/17 06:14 PT 14.0 SECONDS (9.7-12.2) H 12/24/17 08:54 INR 1.3 12/24/17 08:54 APTT 40 SECONDS (21-34) H 12/18/17 12:39
--- NOTE | 2017-12-24 15:31 | CP.PCM.PN ---
Subjective - Date & Time of Evaluation Date of Evaluation: 12/24/17 Time of Evaluation: 15:29 - Subjective Subjective: vascular surgery PT seen and examined. Pt intubated. POssible extubation soon. SHiley in place. Getting HD. Pt follows verbal commands. Objective - Vital Signs/Intake and Output Vital Signs (last 24 hours): Temp Pulse Resp BP Pulse Ox 101.2 F H 104 H 25 H 137/59 L 100 12/24/17 14:18 12/24/17 14:00 12/24/17 14:00 12/24/17 14:00 12/24/17 14:00 Intake and Output: 12/24/17 12/24/17 06:59 18:59 Intake Total 946 1052 Output Total 655 135 Balance 291 917 - Medications Medications: Current Medications Acetaminophen (Tylenol 325mg Tab) 650 mg PO Q6 PRN PRN Reason: Fever >100.4 F Last Admin: 12/24/17 07:57 Dose: 650 mg Acetaminophen (Tylenol 325mg Tab) 650 mg PO Q6 [facility] Stop: 12/25/17 00:01 Last Admin: 12/24/17 14:18 Dose: 650 mg Albuterol/Ipratropium (Duoneb 3 Mg/0.5 Mg (3 Ml) Ud) 3 ml INH RQ4 PRN PRN Reason: Shortness of Breath Last Admin: 12/24/17 08:04 Dose: 3 ml Dextrose (Dextrose 50% Inj) 0 ml IV STAT PRN; Protocol PRN Reason: Hypoglycemia Protocol Dextrose (Glutose 15) 15 gm PO ONCE PRN; Protocol PRN Reason: Hypoglycemia Protocol Epoetin Juan F (Procrit) 8,000 unit SC MWF [facility] Stop: 12/30/17 09:01 Glucagon (Glucagen Diagnostic Kit) 1 mg IM STAT PRN; Protocol PRN Reason: Hypoglycemia Protocol Heparin Sodium (Porcine) (Heparin) 5,000 units SC Q8 [facility] Last Admin: 12/24/17 14:18 Dose: 5,000 units Hydromorphone HCl (Dilaudid) 0.5 mg IVP Q4H PRN PRN Reason: Pain, severe (8-10) Last Admin: 12/24/17 00:21 Dose: 0.5 mg Dextrose (Dextrose 5% In Water 1000 Ml) 1,000 mls @ 0 mls/hr IV .Q0M PRN; Protocol; Per Protocol PRN Reason: Hypoglycemia Protocol Meropenem 500 mg/ Sodium (Chloride) 100 mls @ 100 mls/hr IVPB Q12 [facility] PRN Reason: Protocol Last Admin: 12/24/17 09:50 Dose: 100 mls/hr BUPIVACAINE 0.125%/0.9% NACL (Bupivacaine-Ns 0.125% On-Q Political Science Instructor) 600 mls @ 4 mls/ hr IJ ONCE ONE Stop: 12/24/17 21:59 Last Admin: 12/18/17 18:20 Dose: Not Given Micafungin Sodium 100 mg/ (Sodium Chloride) 100 mls @ 100 mls/hr IV Q24H [facility] PRN Reason: Protocol Last Admin: 12/24/17 10:41 Dose: 100 mls/hr Linezolid (Zyvox 600mg/300ml D5w) 600 mg in 300 mls @ 200 mls/hr IVPB Q12 [facility] PRN Reason: Protocol Last Admin: 12/24/17 10:53 Dose: 200 mls/hr BUPIVACAINE 0.125%/0.9% NACL (Bupivacaine-Ns 0.125% On-Q Political Science Instructor) 600 mls @ 4 mls/ hr IJ ONCE ONE Stop: 12/27/17 15:59 Last Admin: 12/21/17 10:08 Dose: 4 mls/hr Sodium Chloride 35 meq/Magnesium Sulfate 3 meq/Calcium Gluconate 4.5 meq/ Multivitamins/Vitamin C 10 ml/Heparin Sodium (Porcine) 1, 000 units/ Amino Acids 1,030.1663 mls @ 42 mls/hr IV .Q24H [facility] Stop: 12/24/17 17:59 Last Admin: 12/23/17 17:35 Dose: 42 mls/hr Sodium Chloride 35 meq/Magnesium Sulfate 3 meq/Calcium Gluconate 4.5 meq/ Multivitamins/Vitamin C 10 ml/Heparin Sodium (Porcine) 1, 000 units/ Amino Acids 1,030.1663 mls @ 42 mls/hr IV .Q24H [facility] Stop: 12/25/17 17:59 Insulin Human Regular (Novolin R) 0 unit SC Q6 [facility] PRN Reason: Protocol Last Admin: 12/24/17 13:02 Dose: 1 unit Pantoprazole Sodium (Protonix Inj) 40 mg IVP Q12H [facility] Last Admin: 12/24/17 10:31 Dose: 40 mg Saccharomyces Boulardii (Florastor) 250 mg PO Q12 [facility] Last Admin: 12/24/17 10:31 Dose: 250 mg - Labs Labs: 12/24/17 06:24 12/24/17 06:14 PT 14.0 SECONDS (9.7-12.2) H 12/24/17 08:54 INR 1.3 12/24/17 08:54 APTT 40 SECONDS (21-34) H 12/18/17 12:39 - Constitutional Appears: In Acute Distress - Head Exam Head Exam: ATRAUMATIC, NORMAL INSPECTION, NORMOCEPHALIC - Eye Exam Eye Exam: EOMI, Normal appearance, PERRL Pupil Exam: NORMAL ACCOMODATION, PERRL - ENT Exam ENT Exam: Mucous Membranes Moist, Normal Exam - Neck Exam Neck Exam: Full ROM, Normal Inspection. absent: Lymphadenopathy - Respiratory Exam Additional comments: on vent. intubated. - Cardiovascular Exam Cardiovascular Exam: Tachycardia, REGULAR RHYTHM, +S1, +S2. absent: Murmur - GI/Abdominal Exam GI & Abdominal Exam: Soft, Normal Bowel Sounds. absent: Distended, Firm, Guarding, Rigid, Tenderness Additional comments: incision C/D/I stapled. Drains in place x2 SS bilious fluids - Extremities Exam Extremities Exam: Normal Inspection - Back Exam Back Exam: NORMAL INSPECTION - Neurological Exam Neurological Exam: Awake, CN II-XII Intact - Skin Skin Exam: Dry, Intact, Normal Color, Warm Assessment and Plan - Assessment and Plan (Free Text) Assessment: MANFRED needing HD temporary catheter in place. -WIll place Permacath tomorrow in [place] -NPO DW Dr. Aguilar
[2017-12-24] MEDS ORDERED: TPN#2 IV SCH (18:00)
--- NOTE | 2017-12-24 18:59 | CP.PCM.PN ---
Subjective - Date & Time of Evaluation Date of Evaluation: 12/24/17 Time of Evaluation: 18:58 - Subjective Subjective: intubated non verbal Objective - Vital Signs/Intake and Output Vital Signs (last 24 hours): Temp Pulse Resp BP Pulse Ox 101.6 F H 95 H 24 134/52 L 100 12/24/17 16:00 12/24/17 17:00 12/24/17 17:00 12/24/17 17:00 12/24/17 17:00 Intake and Output: 12/24/17 12/24/17 06:59 18:59 Intake Total 946 1220 Output Total 655 160 Balance 291 1060 - Medications Medications: Current Medications Acetaminophen (Tylenol 325mg Tab) 650 mg PO Q6 PRN PRN Reason: Fever >100.4 F Last Admin: 12/24/17 07:57 Dose: 650 mg Acetaminophen (Tylenol 325mg Tab) 650 mg PO Q6 [facility] Stop: 12/25/17 00:01 Last Admin: 12/24/17 14:18 Dose: 650 mg Albuterol/Ipratropium (Duoneb 3 Mg/0.5 Mg (3 Ml) Ud) 3 ml INH RQ4 PRN PRN Reason: Shortness of Breath Last Admin: 12/24/17 08:04 Dose: 3 ml Dextrose (Dextrose 50% Inj) 0 ml IV STAT PRN; Protocol PRN Reason: Hypoglycemia Protocol Dextrose (Glutose 15) 15 gm PO ONCE PRN; Protocol PRN Reason: Hypoglycemia Protocol Epoetin Juan F (Procrit) 8,000 unit SC MWF [facility] Stop: 12/30/17 09:01 Glucagon (Glucagen Diagnostic Kit) 1 mg IM STAT PRN; Protocol PRN Reason: Hypoglycemia Protocol Heparin Sodium (Porcine) (Heparin) 5,000 units SC Q8 [facility] Last Admin: 12/24/17 14:18 Dose: 5,000 units Hydromorphone HCl (Dilaudid) 0.5 mg IVP Q4H PRN PRN Reason: Pain, severe (8-10) Last Admin: 12/24/17 00:21 Dose: 0.5 mg Dextrose (Dextrose 5% In Water 1000 Ml) 1,000 mls @ 0 mls/hr IV .Q0M PRN; Protocol; Per Protocol PRN Reason: Hypoglycemia Protocol Meropenem 500 mg/ Sodium (Chloride) 100 mls @ 100 mls/hr IVPB Q12 [facility] PRN Reason: Protocol Last Admin: 12/24/17 09:50 Dose: 100 mls/hr BUPIVACAINE 0.125%/0.9% NACL (Bupivacaine-Ns 0.125% On-Q Gate Technician) 600 mls @ 4 mls/ hr IJ ONCE ONE Stop: 12/24/17 21:59 Last Admin: 12/18/17 18:20 Dose: Not Given Micafungin Sodium 100 mg/ (Sodium Chloride) 100 mls @ 100 mls/hr IV Q24H [facility] PRN Reason: Protocol Last Admin: 12/24/17 10:41 Dose: 100 mls/hr Linezolid (Zyvox 600mg/300ml D5w) 600 mg in 300 mls @ 200 mls/hr IVPB Q12 [facility] PRN Reason: Protocol Last Admin: 12/24/17 10:53 Dose: 200 mls/hr BUPIVACAINE 0.125%/0.9% NACL (Bupivacaine-Ns 0.125% On-Q Gate Technician) 600 mls @ 4 mls/ hr IJ ONCE ONE Stop: 12/27/17 15:59 Last Admin: 12/21/17 10:08 Dose: 4 mls/hr Sodium Chloride 35 meq/Magnesium Sulfate 3 meq/Calcium Gluconate 4.5 meq/ Multivitamins/Vitamin C 10 ml/Heparin Sodium (Porcine) 1, 000 units/ Amino Acids 1,030.1663 mls @ 42 mls/hr IV .Q24H [facility] Stop: 12/25/17 17:59 Last Admin: 12/24/17 17:39 Dose: 42 mls/hr Insulin Human Regular (Novolin R) 0 unit SC Q6 [facility] PRN Reason: Protocol Last Admin: 12/24/17 18:08 Dose: 1 unit Pantoprazole Sodium (Protonix Inj) 40 mg IVP Q12H [facility] Last Admin: 12/24/17 10:31 Dose: 40 mg Saccharomyces Boulardii (Florastor) 250 mg PO Q12 [facility] Last Admin: 12/24/17 10:31 Dose: 250 mg - Labs Labs: 12/24/17 06:24 12/24/17 06:14 PT 14.0 SECONDS (9.7-12.2) H 12/24/17 08:54 INR 1.3 12/24/17 08:54 APTT 40 SECONDS (21-34) H 12/18/17 12:39 - ENT Exam Additional comments: et tube - Respiratory Exam Respiratory Exam: absent: Clear to Ausculation Bilateral, NORMAL BREATHING PATTERN - Cardiovascular Exam Cardiovascular Exam: +S1, +S2 - GI/Abdominal Exam GI & Abdominal Exam: absent: Soft, Normal Bowel Sounds Additional comments: dec bs gayle mid abdomen - Neurological Exam Neurological Exam: absent: Alert, Awake, Oriented x3 Assessment and Plan - Assessment and Plan (Free Text) Assessment: oliguria and possible atn Fever Hemodialysis per Nephro Continue Management per ICU see note from them below 77yo female with history of hypertension, COPD, breast cancer s/p lumpectomy that presented to same day 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 During the procedure, patient experienced a significant amount of bleeding which was treated with a combination of clipping , electrocautery and epinephrine. Bleeding was significantly reduced however patient was subsequently admitted to ICU for close observation. Patient was admitted to ICU due to SBP 220/140s initially on cardene drip x 1 - 2 hours- now normotensive; patient now in ATN with CRE of 6.8. Returned to OR 12/18/17 due to increasing free air noted on repeat CT scan ; s/p ex lap primary repair of duodenal perforation, jourdan patch. Omentectomy. Right shiley catheter placed - 12/20. Dialysis 12/20 and 12/21. 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
--- NOTE | 2017-12-24 19:01 | CP.PCM.PN ---
Subjective - Date & Time of Evaluation Date of Evaluation: 12/23/17 Time of Evaluation: 18:37 - Subjective Subjective: nonverbal intubated family at bedside daughter Objective - Vital Signs/Intake and Output Vital Signs (last 24 hours): Temp Pulse Resp BP Pulse Ox 101.6 F H 95 H 24 134/52 L 100 12/24/17 16:00 12/24/17 17:00 12/24/17 17:00 12/24/17 17:00 12/24/17 17:00 Intake and Output: 12/24/17 12/24/17 06:59 18:59 Intake Total 946 1220 Output Total 655 160 Balance 291 1060 - Medications Medications: Current Medications Acetaminophen (Tylenol 325mg Tab) 650 mg PO Q6 PRN PRN Reason: Fever >100.4 F Last Admin: 12/24/17 07:57 Dose: 650 mg Acetaminophen (Tylenol 325mg Tab) 650 mg PO Q6 [facility] Stop: 12/25/17 00:01 Last Admin: 12/24/17 14:18 Dose: 650 mg Albuterol/Ipratropium (Duoneb 3 Mg/0.5 Mg (3 Ml) Ud) 3 ml INH RQ4 PRN PRN Reason: Shortness of Breath Last Admin: 12/24/17 08:04 Dose: 3 ml Dextrose (Dextrose 50% Inj) 0 ml IV STAT PRN; Protocol PRN Reason: Hypoglycemia Protocol Dextrose (Glutose 15) 15 gm PO ONCE PRN; Protocol PRN Reason: Hypoglycemia Protocol Epoetin Juan F (Procrit) 8,000 unit SC MWF [facility] Stop: 12/30/17 09:01 Glucagon (Glucagen Diagnostic Kit) 1 mg IM STAT PRN; Protocol PRN Reason: Hypoglycemia Protocol Heparin Sodium (Porcine) (Heparin) 5,000 units SC Q8 [facility] Last Admin: 12/24/17 14:18 Dose: 5,000 units Hydromorphone HCl (Dilaudid) 0.5 mg IVP Q4H PRN PRN Reason: Pain, severe (8-10) Last Admin: 12/24/17 00:21 Dose: 0.5 mg Dextrose (Dextrose 5% In Water 1000 Ml) 1,000 mls @ 0 mls/hr IV .Q0M PRN; Protocol; Per Protocol PRN Reason: Hypoglycemia Protocol Meropenem 500 mg/ Sodium (Chloride) 100 mls @ 100 mls/hr IVPB Q12 [facility] PRN Reason: Protocol Last Admin: 12/24/17 09:50 Dose: 100 mls/hr BUPIVACAINE 0.125%/0.9% NACL (Bupivacaine-Ns 0.125% On-Q Guide Winder) 600 mls @ 4 mls/ hr IJ ONCE ONE Stop: 12/24/17 21:59 Last Admin: 12/18/17 18:20 Dose: Not Given Micafungin Sodium 100 mg/ (Sodium Chloride) 100 mls @ 100 mls/hr IV Q24H [facility] PRN Reason: Protocol Last Admin: 12/24/17 10:41 Dose: 100 mls/hr Linezolid (Zyvox 600mg/300ml D5w) 600 mg in 300 mls @ 200 mls/hr IVPB Q12 [facility] PRN Reason: Protocol Last Admin: 12/24/17 10:53 Dose: 200 mls/hr BUPIVACAINE 0.125%/0.9% NACL (Bupivacaine-Ns 0.125% On-Q Guide Winder) 600 mls @ 4 mls/ hr IJ ONCE ONE Stop: 12/27/17 15:59 Last Admin: 12/21/17 10:08 Dose: 4 mls/hr Sodium Chloride 35 meq/Magnesium Sulfate 3 meq/Calcium Gluconate 4.5 meq/ Multivitamins/Vitamin C 10 ml/Heparin Sodium (Porcine) 1, 000 units/ Amino Acids 1,030.1663 mls @ 42 mls/hr IV .Q24H [facility] Stop: 12/25/17 17:59 Last Admin: 12/24/17 17:39 Dose: 42 mls/hr Insulin Human Regular (Novolin R) 0 unit SC Q6 [facility] PRN Reason: Protocol Last Admin: 12/24/17 18:08 Dose: 1 unit Pantoprazole Sodium (Protonix Inj) 40 mg IVP Q12H [facility] Last Admin: 12/24/17 10:31 Dose: 40 mg Saccharomyces Boulardii (Florastor) 250 mg PO Q12 [facility] Last Admin: 12/24/17 10:31 Dose: 250 mg - Labs Labs: 12/24/17 06:24 12/24/17 06:14 PT 14.0 SECONDS (9.7-12.2) H 12/24/17 08:54 INR 1.3 12/24/17 08:54 APTT 40 SECONDS (21-34) H 12/18/17 12:39 - ENT Exam Additional comments: et tube - Respiratory Exam Respiratory Exam: absent: Clear to Ausculation Bilateral, NORMAL BREATHING PATTERN Additional comments: bs coarse - Cardiovascular Exam Cardiovascular Exam: REGULAR RHYTHM, +S1, +S2 - GI/Abdominal Exam GI & Abdominal Exam: Tenderness. 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 During the procedure, patient experienced a significant amount of bleeding which was treated with a combination of clipping , electrocautery and epinephrine. Bleeding was significantly reduced however patient was subsequently admitted to ICU for close observation. Patient was admitted to ICU due to SBP 220/140s initially on cardene drip x 1 - 2 hours- now normotensive; patient now in ATN with CRE of 6.8. Returned to OR 12/18/17 due to increasing free air noted on repeat CT scan ; s/p ex lap primary repair of duodenal perforation, jourdan patch. Omentectomy. Right shiley catheter placed - 12/20. Dialysis 12/20 and 12/21. 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
[2017-12-25] MEDS: (Novolin R) Insulin Human Regular 100 units/ml vial SC SCH ×5 (01:17→18:30)
[2017-12-25 05:44] LABS: ABG ALLEN TEST POS; ARTERIAL BLOOD GAS HCO3 24.4 mmol/L (21-28); ARTERIAL BLOOD GAS HEMOGLOBIN 9.5 g/dL (11.7-17.4); ARTERIAL BLOOD GAS O2 SAT 99.2 % (95-98); ARTERIAL BLOOD GAS PCO2 34 mm/Hg (35-45); ARTERIAL BLOOD GAS PH 7.44 (7.35-7.45); ARTERIAL BLOOD GAS PO2 96 mm/Hg (80-100); ARTERIAL BLOOD GAS TCO2 24.1 mmol/L (22-28)
[2017-12-25 06:09] LABS: BASO % 0.2 % (0.0-2.0); EOS # 0.4 K/uL (0.0-0.7); HEMOGLOBIN 7.4 g/dL (11.0-16.0); LYMPH # 0.9 K/uL (1.0-4.3); LYMPH % 4.2 % (20.0-40.0); MEAN CELL VOLUME 98.6 fL (81.0-99.0); MEAN CORPUSCULAR HEMOGLOBIN 28.4 pg (27.0-31.0); MEAN CORPUSCULAR HGB CONC 28.7 g/dL (33.0-37.0); MEAN PLATELET VOLUME 10.7 fL (7.2-11.7); MONO # 0.9 K/uL (0.0-0.8); MONO % 4.1 % (0.0-10.0); NEUT # 18.7 K/uL (1.8-7.0); NEUT % 89.5 % (50.0-75.0); PLATELET COUNT 180 K/uL (130-400); WHITE BLOOD COUNT 20.9 K/uL (4.8-10.8)
[2017-12-25 06:49] LABS: ALB/GLOB RATIO 1.3 (1.0-2.1); ALBUMIN 2.7 g/dL (3.5-5.0); CALCIUM 6.7 mg/dl (8.6-10.4)
[2017-12-25] MEDS: Lidocaine Hydrochloride 20 ML INJ ONE ×2 (07:35→16:35)
[2017-12-25] MEDS ORDERED: HEPARIN-NS 5,000 UNITS/500 ML 5,000 UNIT/500 ML BAG IV ONE (07:35)
[2017-12-25] MEDS ORDERED: Midazolam 2 MG/2 ML VIAL ONE (07:42)
[2017-12-25] MEDS ORDERED: Phenylephrine 10 mg/ml Inj ONE (07:43)
[2017-12-25] MEDS ORDERED: Vancomycin 1 gm/D5W 200 ml 0 GM/0 ML BAG IVPB ONE (07:46)
[2017-12-25 07:48] LABS: ANISOCYTOSIS SLIGHT; BANDS 4 % (0-2); EOSINOPHIL 4 % (0-4); HYPOCHROMIC SLIGHT; LYMPHOCYTE 5 % (20-40); MONOCYTE 6 % (0-10); NEUTROPHIL 80 % (50-75); PLATELET ESTIMATE NORMAL (NORMAL); POIKILOCYTOSIS SLIGHT; REACTIVE LYMPHOCYTES 1 % (0-0); TOTAL CELLS COUNTED 100; TOXIC GRANULATION PRESENT
[2017-12-25 07:49] LABS: MICROCYTOSIS SLIGHT
[2017-12-25] MEDS ORDERED: ceFAZolin 1 gm in NS 0 GM/0 ML BAG IVPB ONE (07:50)
[2017-12-25] MEDS ORDERED: Sodium Chloride 0.9% 500 ML IV ONE (08:00)
[2017-12-25 08:14] LABS: ALBUMIN 2.8 g/dL (3.5-5.0); CALCIUM 7.1 mg/dl (8.6-10.4)
--- NOTE | 2017-12-25 08:39 | PCM.SURG1 ---
Surgeon's Initial Post Op Note - Surgeon's Notes Surgeon: norma Assistant [employer] Coach: 0 Type of Anesthesia: General Endo Anesthesia Administered By: jevon Pre-Operative Diagnosis: renal failure Operative Findings: cath to svc/ra via right jugular Post-Operative Diagnosis: same Operation Performed: permacath right jugular with us guidance and micropuncture technique Specimen/Specimens Removed: 0 Estimated Blood Loss: EBL {In ML}: 5 Blood Products Given: N/A Drains Used: No Drains Post-Op Condition: Good Date of Surgery/Procedure: 12/25/17 Time of Surgery/Procedure: 08:39
[2017-12-25] MEDS ORDERED: EPOETIN ALFA 4,000 UNIT/ML ML Dialysis SC SCH (09:00)
--- NOTE | 2017-12-25 09:34 | RAD ---
HISTORY: intubated COMPARISON: No prior. FINDINGS: In situ tracheostomy tube, tip of which lies approximately 9.9 cm above kathy. NGT is present, the tip of which has not been included on study abdominal distal aspect lies well below junction. No change right sided PICC line with tip in the SVC. LUNGS: Curvilinear subsegmental atelectasis and or scarring left upper lobe unchanged. Mild bibasilar atelectasis. PLEURA: No significant pleural effusion identified, no pneumothorax apparent. CARDIOVASCULAR: Heart remains enlarged. OSSEOUS STRUCTURES: No significant abnormalities. VISUALIZED UPPER ABDOMEN: Normal. OTHER FINDINGS: None. IMPRESSION: Support lines and tubes as above. Mild bibasilar atelectasis. Stable curvilinear atelectasis and or scarring left upper lobe
[2017-12-25] MEDS: Micafungin 100 MG in Sodium Chloride 0.9% 100 ML IV SCH (10:07)
[2017-12-25] MEDS: Meropenem 500 MG in Sodium Chloride 0.9% 100 ML IVPB SCH ×2 (10:16→21:15)
[2017-12-25] MEDS: Saccharomyces Boulardi 250 mg Cap PO SCH ×2 (10:38→21:13)
--- NOTE | 2017-12-25 10:57 | RAD ---
HISTORY: permacath placement COMPARISON: Portable chest 12/25/2017 7:29 a.m.. FINDINGS: LUNGS: Endotracheal tube terminates at the upper trachea some 12.5 cm above the kathy. Adjustment of the ET tube terminus is recommended below the clavicles as is the likely now just past the vocal cords. A nasogastric tube is unchanged in position. PLEURA: No significant pleural effusion identified, no pneumothorax apparent. CARDIOVASCULAR: Stable cardiomegaly. No pulmonary vascular congestion. Linear atelectasis is increased at the left apex and is a new finding minimally at the right perihilar region. OSSEOUS STRUCTURES: No significant abnormalities. VISUALIZED UPPER ABDOMEN: Normal. OTHER FINDINGS: None. IMPRESSION: No acute infiltrate bilaterally or pleural effusion. Increased linear atelectasis and atelectasis left apex and minimal linear atelectasis right perihilar region. Endotracheal tube in upper trachea. Advancement of the catheter antegrade is advised. Findings discussed with Nurse Beavers by telephone with written down and read back verification 12/25/2017 10:45 a.m..
--- NOTE | 2017-12-25 11:02 | RAD ---
HISTORY: oral ET advanced 3 in,verify placement COMPARISON: Portable chest 12/25/2017 8:51 a.m.. FINDINGS: LUNGS: Endotracheal tube has been advanced terminating approximate 8 cm of the kathy. Adjustment into the chest is advised follow-up by confirmation radiography. Nasonex tube unchanged in position with right PermCath identified placed terminating in the distal superior vena cava. Diminished linear atelectasis left apex with trace residual right hilar linear atelectasis present. No alveolitis bilaterally. PLEURA: No significant pleural effusion identified, no pneumothorax apparent. CARDIOVASCULAR: Normal. OSSEOUS STRUCTURES: No significant abnormalities. VISUALIZED UPPER ABDOMEN: Normal. OTHER FINDINGS: None. IMPRESSION: Improved aeration bilaterally. No alveolitis bilaterally. ET tube has been advanced but requires additional advancement further into the trachea. Findings discussed with Nurse Beavers by telephone with written down and read back verification 12/25/2017 10:45 a.m..
--- NOTE | 2017-12-25 11:05 | CP.PCM.PN ---
Subjective - Date & Time of Evaluation Date of Evaluation: 12/25/17 Time of Evaluation: 11:04 - Subjective Subjective: Nephrology Consultation Note: Assessment: critical oliguric Acute Kidney Injury (N17.9) likely hemodynamic injury leading to ATN with Pulmonary congestion, started dialysis 12/20/17 HAGMA with respi compensation, hypocalcemia with Vit D insuff (level 23) carcinoid HTN crisis s/p resection now resolved acute abdomen with perforation s/p repair 12/18/17 (ex lap) hypertension, COPD, breast cancer s/p lumpectomy and duodenal neuroendocrine tumor Plan Plan for HD today as ordered No ACEI/ARB due to MANFRED. ]maintain hemodynamics stable. Monitor Input/Output, daily weights and renal function with basic metabolic panel minimize IVF agree with IV calcium gluconate supplementation as needed anemia: PRBC as needed. ordered epogen 8000 unit 3 times a week will give Vit D and iron/MVI once pt on diet Dose meds/antibiotics for reduced GFR and dialysis status. Avoid fleets enema/ magnesium based laxatives. Avoid nephrotoxins/NSAIDs/ iodinated contrast ( unless needed emergently) Glycemic control Further work up/management as per primary team Thanks for allowing me to participate in care of your patient. Will follow patient with you. Please call if any Qs. 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 she also had HTN crisis which was treated with cardene drip. renal consult for MANFRED eval. also found to have free air in abdomen Denies OTC/herbal meds or NSAIDs No recent iodinated contrast exposure. Noted obvious episodes of low BP (89/51). ROS: unable as pt intubated Physical Examination: General Appearance: remains intubated, better appearing Vitals reviewed and noted as below Head; Atraumatic, normocephalic ENT: orally intubated EYES: Pupils are equal, round and reactive to light accommodation. Eye muscles and extraocular movement intact. Sclera is anicteric. Neck; supple no lymphadenopathy, no thyromegaly or bruit Lungs: Normal respiratory rate/effort. Breath sounds bilateral equal and bilateral clearer Heart: Normal rate. s1s2 normal. No rub or gallop. Extremities: no edema. No varicose veins Neurological: Patient is sedated Skin: Warm and dry. Normal turgor. No rash. Palpitation: Normal elasticity for age Abdomen: no abdominal tenderness with out guarding but no rigidity no organomegaly s/p exlap Psych: unable MSK: no joint tenderness or swelling. Digits and nails normal, no deformity : kidney or bladder not palpable. has bruce with dark colored urine access: permacath Labs/imaging reviewed. Past medical history, past surgical history, family history, social history, allergy reviewed and noted as below Family hx: no hx of CKD. Rest non-contributory renal imaging: WNL FeNa 0.7% UA 1+ protein no blood Objective - Vital Signs/Intake and Output Vital Signs (last 24 hours): Temp Pulse Resp BP Pulse Ox 99.9 F H 117 H 28 H 106/83 99 12/25/17 07:30 12/25/17 10:21 12/25/17 10:21 12/25/17 10:21 12/25/17 10:21 Intake and Output: 12/25/17 12/25/17 06:59 18:59 Intake Total 904 42 Output Total 580 290 Balance 324 -248 - Medications Medications: Current Medications Acetaminophen (Tylenol 325mg Tab) 650 mg PO Q6 PRN PRN Reason: Fever >100.4 F Last Admin: 12/24/17 07:57 Dose: 650 mg Albuterol/Ipratropium (Duoneb 3 Mg/0.5 Mg (3 Ml) Ud) 3 ml INH RQ4 PRN PRN Reason: Shortness of Breath Last Admin: 12/24/17 08:04 Dose: 3 ml Dextrose (Dextrose 50% Inj) 0 ml IV STAT PRN; Protocol PRN Reason: Hypoglycemia Protocol Dextrose (Glutose 15) 15 gm PO ONCE PRN; Protocol PRN Reason: Hypoglycemia Protocol Epoetin Juan F (Procrit) 8,[facility] Stop: 12/30/17 09:01 Glucagon (Glucagen Diagnostic Kit) 1 mg IM STAT PRN; Protocol PRN Reason: Hypoglycemia Protocol Heparin Sodium (Porcine) (Heparin) 5,000 units SC Q8 [facility] Last Admin: 12/25/17 05:44 Dose: Not Given Hydromorphone HCl (Dilaudid) 0.5 mg IVP Q4H PRN PRN Reason: Pain, severe (8-10) Last Admin: 12/24/17 21:46 Dose: 0.5 mg Dextrose (Dextrose 5% In Water 1000 Ml) 1,000 mls @ 0 mls/hr IV .Q0M PRN; Protocol; Per Protocol PRN Reason: Hypoglycemia Protocol Meropenem 500 mg/ Sodium (Chloride) 100 mls @ 100 mls/hr IVPB Q12 [facility] PRN Reason: Protocol Last Admin: 12/25/17 10:16 Dose: 100 mls/hr Micafungin Sodium 100 mg/ (Sodium Chloride) 100 mls @ 100 mls/hr IV Q24H [facility] PRN Reason: Protocol Last Admin: 12/25/17 10:07 Dose: 100 mls/hr Linezolid (Zyvox 600mg/300ml D5w) 600 mg in 300 mls @ 200 mls/hr IVPB Q12 [facility] PRN Reason: Protocol Last Admin: 12/24/17 21:23 Dose: 200 mls/hr BUPIVACAINE 0.125%/0.9% NACL (Bupivacaine-Ns 0.125% On-Q Furnace Keeper) 600 mls @ 4 mls/ hr IJ ONCE ONE Stop: 12/27/17 15:59 Last Admin: 12/21/17 10:08 Dose: 4 mls/hr Sodium Chloride 35 meq/Magnesium Sulfate 3 meq/Calcium Gluconate 4.5 meq/ Multivitamins/Vitamin C 10 ml/Heparin Sodium (Porcine) 1, 000 units/ Amino Acids 1,030.1663 mls @ 42 mls/hr IV .Q24H [facility] Stop: 12/25/17 17:59 Last Admin: 12/24/17 17:39 Dose: 42 mls/hr Sodium Chloride 35 meq/Magnesium Sulfate 3 meq/Calcium Gluconate 4.5 meq/ Multivitamins/Vitamin C 10 ml/Heparin Sodium (Porcine) 1, 000 units/ Amino Acids 1,030.1663 mls @ 42 mls/hr IV .Q24H [facility] Stop: 12/26/17 17:59 Insulin Human Regular (Novolin R) 0 unit SC Q6 [facility] PRN Reason: Protocol Last Admin: 12/25/17 05:44 Dose: Not Given Pantoprazole Sodium (Protonix Inj) 40 mg IVP Q12H [facility] Last Admin: 12/25/17 10:17 Dose: 40 mg Saccharomyces Boulardii (Florastor) 250 mg PO Q12 [facility] Last Admin: 12/25/17 10:38 Dose: 250 mg - Labs Labs: 12/25/17 05:56 12/25/17 07:38 PT 14.0 SECONDS (9.7-12.2) H 12/24/17 08:54 INR 1.3 12/24/17 08:54 APTT 40 SECONDS (21-34) H 12/18/17 12:39
--- NOTE | 2017-12-25 11:05 | CP.PCM.PN ---
<Peewee Colorado - Last Filed: 12/25/17 11:00> Subjective - Date & Time of Evaluation Date of Evaluation: 12/25/17 Time of Evaluation: 11:00 - Subjective Subjective: General Surgery Progress Note for Dr. Alatorre This 77F was seen and exained this AM at bedside no acute events overnight. Pt opens eyes spontaneously however not following commands for me this AM. Pt had a permacath placed this AM. She is schedules for dialysis after which she will go for a gastrographin study. Objective - Vital Signs/Intake and Output Vital Signs (last 24 hours): Temp Pulse Resp BP Pulse Ox 99.9 F H 117 H 28 H 106/83 99 12/25/17 07:30 12/25/17 10:21 12/25/17 10:21 12/25/17 10:21 12/25/17 10:21 Intake and Output: 12/25/17 12/25/17 06:59 18:59 Intake Total 904 42 Output Total 580 290 Balance 324 -248 - Medications Medications: Current Medications Acetaminophen (Tylenol 325mg Tab) 650 mg PO Q6 PRN PRN Reason: Fever >100.4 F Last Admin: 12/24/17 07:57 Dose: 650 mg Albuterol/Ipratropium (Duoneb 3 Mg/0.5 Mg (3 Ml) Ud) 3 ml INH RQ4 PRN PRN Reason: Shortness of Breath Last Admin: 12/24/17 08:04 Dose: 3 ml Dextrose (Dextrose 50% Inj) 0 ml IV STAT PRN; Protocol PRN Reason: Hypoglycemia Protocol Dextrose (Glutose 15) 15 gm PO ONCE PRN; Protocol PRN Reason: Hypoglycemia Protocol Epoetin Juan F (Procrit) 8,000 unit SC MWF [facility] Stop: 12/30/17 09:01 Glucagon (Glucagen Diagnostic Kit) 1 mg IM STAT PRN; Protocol PRN Reason: Hypoglycemia Protocol Heparin Sodium (Porcine) (Heparin) 5,000 units SC Q8 [facility] Last Admin: 12/25/17 05:44 Dose: Not Given Hydromorphone HCl (Dilaudid) 0.5 mg IVP Q4H PRN PRN Reason: Pain, severe (8-10) Last Admin: 12/24/17 21:46 Dose: 0.5 mg Dextrose (Dextrose 5% In Water 1000 Ml) 1,000 mls @ 0 mls/hr IV .Q0M PRN; Protocol; Per Protocol PRN Reason: Hypoglycemia Protocol Meropenem 500 mg/ Sodium (Chloride) 100 mls @ 100 mls/hr IVPB Q12 [facility] PRN Reason: Protocol Last Admin: 12/25/17 10:16 Dose: 100 mls/hr Micafungin Sodium 100 mg/ (Sodium Chloride) 100 mls @ 100 mls/hr IV Q24H [facility] PRN Reason: Protocol Last Admin: 12/25/17 10:07 Dose: 100 mls/hr Linezolid (Zyvox 600mg/300ml D5w) 600 mg in 300 mls @ 200 mls/hr IVPB Q12 [facility] PRN Reason: Protocol Last Admin: 12/24/17 21:23 Dose: 200 mls/hr BUPIVACAINE 0.125%/0.9% NACL (Bupivacaine-Ns 0.125% On-Q Outside Rigger) 600 mls @ 4 mls/ hr IJ ONCE ONE Stop: 12/27/17 15:59 Last Admin: 12/21/17 10:08 Dose: 4 mls/hr Sodium Chloride 35 meq/Magnesium Sulfate 3 meq/Calcium Gluconate 4.5 meq/ Multivitamins/Vitamin C 10 ml/Heparin Sodium (Porcine) 1, 000 units/ Amino Acids 1,030.1663 mls @ 42 mls/hr IV .Q24H [facility] Stop: 12/25/17 17:59 Last Admin: 12/24/17 17:39 Dose: 42 mls/hr Sodium Chloride 35 meq/Magnesium Sulfate 3 meq/Calcium Gluconate 4.5 meq/ Multivitamins/Vitamin C 10 ml/Heparin Sodium (Porcine) 1, 000 units/ Amino Acids 1,030.1663 mls @ 42 mls/hr IV .Q24H ONE Stop: 12/26/17 17:59 Insulin Human Regular (Novolin R) 0 unit SC Q6 [facility] PRN Reason: Protocol Last Admin: 12/25/17 05:44 Dose: Not Given Pantoprazole Sodium (Protonix Inj) 40 mg IVP Q12H [facility] Last Admin: 12/25/17 10:17 Dose: 40 mg Saccharomyces Boulardii (Florastor) 250 mg PO Q12 [facility] Last Admin: 12/25/17 10:38 Dose: 250 mg - Labs Labs: 12/25/17 05:56 12/25/17 07:38 PT 14.0 SECONDS (9.7-12.2) H 12/24/17 08:54 INR 1.3 12/24/17 08:54 APTT 40 SECONDS (21-34) H 12/18/17 12:39 - Constitutional Appears: Non-toxic, No Acute Distress - Head Exam Head Exam: ATRAUMATIC, NORMOCEPHALIC - Eye Exam Eye Exam: EOMI, Normal appearance - ENT Exam ENT Exam: Mucous Membranes Moist - Respiratory Exam Respiratory Exam: NORMAL BREATHING PATTERN - Cardiovascular Exam Cardiovascular Exam: +S1, +S2 - GI/Abdominal Exam GI & Abdominal Exam: Soft. absent: Distended, Firm, Guarding, Rigid, Tenderness Additional comments: Inscision well aproximated non erythematous non draining, small area of erythema around the iferior drain site, no fluctuance. Superior drain 10cc/24 Inferior drain 70cc serobilious. - Neurological Exam Neurological Exam: Alert, Awake - Psychiatric Exam Psychiatric exam: Normal Affect, Normal Mood - Skin Skin Exam: Dry, Intact Assessment and Plan - Assessment and Plan (Free Text) Assessment: 77F s/p repair of duodenal perforation with jourdan patch POD 7 Plan: - drain management - wean and extubate - Dialysis as needed - F/U gastrographin study today Further recs discuss with Dr. Celi [place] PGY2 <Deion Alatorre - Last Filed: 12/25/17 17:45> Objective - Vital Signs/Intake and Output Vital Signs (last 24 hours): Temp Pulse Resp BP Pulse Ox 98.9 F 98 H 31 H 107/46 L 99 12/25/17 16:21 12/25/17 17:05 12/25/17 17:05 12/25/17 17:05 12/25/17 17:05 Intake and Output: 12/25/17 12/25/17 06:59 18:59 Intake Total 904 1119 Output Total 580 445 Balance 324 674 - Medications Medications: Current Medications Acetaminophen (Tylenol 325mg Tab) 650 mg PO Q6 PRN PRN Reason: Fever >100.4 F Last Admin: 12/25/17 14:43 Dose: 650 mg Albuterol/Ipratropium (Duoneb 3 Mg/0.5 Mg (3 Ml) Ud) 3 ml INH RQ4 PRN PRN Reason: Shortness of Breath Last Admin: 12/24/17 08:04 Dose: 3 ml Dextrose (Dextrose 50% Inj) 0 ml IV STAT PRN; Protocol PRN Reason: Hypoglycemia Protocol Dextrose (Glutose 15) 15 gm PO ONCE PRN; Protocol PRN Reason: Hypoglycemia Protocol Epoetin Juan F (Procrit) 8,000 unit IV [facility] [place] Stop: 12/30/17 09:01 Last Admin: 12/25/17 14:39 Dose: 8,000 unit Glucagon (Glucagen Diagnostic Kit) 1 mg IM STAT PRN; Protocol PRN Reason: Hypoglycemia Protocol Heparin Sodium (Porcine) (Heparin) 5,000 units SC Q8 [facility] Last Admin: 12/25/17 13:04 Dose: 5,000 units Heparin Sodium (Porcine) (Heparin) 3,700 units IVP [facility] [place] Last Admin: 12/25/17 16:58 Dose: 3,700 units Hydromorphone HCl (Dilaudid) 0.5 mg IVP Q4H PRN PRN Reason: Pain, severe (8-10) Last Admin: 12/25/17 15:41 Dose: 0.5 mg Dextrose (Dextrose 5% In Water 1000 Ml) 1,000 mls @ 0 mls/hr IV .Q0M PRN; Protocol; Per Protocol PRN Reason: Hypoglycemia Protocol Meropenem 500 mg/ Sodium (Chloride) 100 mls @ 100 mls/hr IVPB Q12 [facility] PRN Reason: Protocol Last Admin: 12/25/17 10:16 Dose: 100 mls/hr Micafungin Sodium 100 mg/ (Sodium Chloride) 100 mls @ 100 mls/hr IV Q24H [facility] PRN Reason: Protocol Last Admin: 12/25/17 10:07 Dose: 100 mls/hr Linezolid (Zyvox 600mg/300ml D5w) 600 mg in 300 mls @ 200 mls/hr IVPB Q12 [facility] PRN Reason: Protocol Last Admin: 12/25/17 11:30 Dose: 200 mls/hr BUPIVACAINE 0.125%/0.9% NACL (Bupivacaine-Ns 0.125% On-Q Outside Rigger) 600 mls @ 4 mls/ hr IJ ONCE ONE Stop: 12/27/17 15:59 Last Admin: 12/21/17 10:08 Dose: 4 mls/hr Sodium Chloride 35 meq/Magnesium Sulfate 3 meq/Calcium Gluconate 4.5 meq/ Multivitamins/Vitamin C 10 ml/Heparin Sodium (Porcine) 1, 000 units/ Amino Acids 1,030.1663 mls @ 42 mls/hr IV .Q24H [facility] Stop: 12/25/17 17:59 Last Admin: 12/24/17 17:39 Dose: 42 mls/hr Sodium Chloride 35 meq/Magnesium Sulfate 3 meq/Calcium Gluconate 4.5 meq/ Multivitamins/Vitamin C 10 ml/Heparin Sodium (Porcine) 1, 000 units/ Amino Acids 1,030.1663 mls @ 42 mls/hr IV .Q24H ONE Stop: 12/26/17 17:59 Insulin Human Regular (Novolin R) 0 unit SC Q6 [facility] PRN Reason: Protocol Last Admin: 12/25/17 12:59 Dose: 1 unit Pantoprazole Sodium (Protonix Inj) 40 mg IVP Q12H [facility] Last Admin: 12/25/17 10:17 Dose: 40 mg Saccharomyces Boulardii (Florastor) 250 mg PO Q12 [facility] Last Admin: 12/25/17 10:38 Dose: 250 mg - Labs Labs: 12/25/17 05:56 12/25/17 07:38 PT 14.0 SECONDS (9.7-12.2) H 12/24/17 08:54 INR 1.3 12/24/17 08:54 APTT 40 SECONDS (21-34) H 12/18/17 12:39 Attending/Attestation - Attestation I have personally seen and examined this patient.: Yes I have fully participated in the care of the patient.: Yes I have reviewed all pertinent clinical information, including history, physical exam and plan: Yes Notes (Text): Pt was seen and examined at bedside Agree with above note and assessment Pt is improving clinically Abdomen: soft, tender, No peritoneal signs, Mild cellulitis around drain site with possible abscess Labs and radiology reviewed. Plan: C.w IV antibiotics I & D of abscess at bedside Consent Plan d.w pt's family and ICU attending in detail Risk and benefit explained in detail.
--- NOTE | 2017-12-25 11:08 | RAD ---
PROCEDURE: Intraoperative Fluoroscopy. HISTORY: RENAL FAILURE FINDINGS: Fluoroscopic assistance was provided for central venous dialysis catheter deployment (Perma-Cath). Please refer to the operative report from LENI Fuentes. 19.4 seconds of fluoro time was utilized with a cumulative radiation dose of 2.25 mGy.
--- NOTE | 2017-12-25 11:21 | CP.PCM.PN ---
<Benita Hurst - Last Filed: 12/25/17 11:30> Subjective - Date & Time of Evaluation Date of Evaluation: 12/25/17 Time of Evaluation: 11:00 - Subjective Subjective: GI Fellow PGY4 Progress Note Pt seen and evaluated at bedside, pt intubated s/p repair of perforation. Pt hemodynamically stable, with no pressor support. Pt with fever last night and elevated WBC on multiple abx and antifungal therapy. Pt is s/p permacath RIJ this am. Plan for HD today followed by upper GI series today. ROS:A 12pt ROS was unable to be obtained due to AMS Objective - Vital Signs/Intake and Output Vital Signs (last 24 hours): Temp Pulse Resp BP Pulse Ox 99.9 F H 117 H 28 H 106/83 99 12/25/17 07:30 12/25/17 10:21 12/25/17 10:21 12/25/17 10:21 12/25/17 10:21 Intake and Output: 12/25/17 12/25/17 06:59 18:59 Intake Total 904 42 Output Total 580 300 Balance 324 -258 - Medications Medications: Current Medications Acetaminophen (Tylenol 325mg Tab) 650 mg PO Q6 PRN PRN Reason: Fever >100.4 F Last Admin: 12/24/17 07:57 Dose: 650 mg Albuterol/Ipratropium (Duoneb 3 Mg/0.5 Mg (3 Ml) Ud) 3 ml INH RQ4 PRN PRN Reason: Shortness of Breath Last Admin: 12/24/17 08:04 Dose: 3 ml Dextrose (Dextrose 50% Inj) 0 ml IV STAT PRN; Protocol PRN Reason: Hypoglycemia Protocol Dextrose (Glutose 15) 15 gm PO ONCE PRN; Protocol PRN Reason: Hypoglycemia Protocol Epoetin Juan F (Procrit) 8,000 unit SC MWF [facility] Stop: 12/30/17 09:01 Glucagon (Glucagen Diagnostic Kit) 1 mg IM STAT PRN; Protocol PRN Reason: Hypoglycemia Protocol Heparin Sodium (Porcine) (Heparin) 5,000 units SC Q8 [facility] Last Admin: 12/25/17 05:44 Dose: Not Given Hydromorphone HCl (Dilaudid) 0.5 mg IVP Q4H PRN PRN Reason: Pain, severe (8-10) Last Admin: 12/24/17 21:46 Dose: 0.5 mg Dextrose (Dextrose 5% In Water 1000 Ml) 1,000 mls @ 0 mls/hr IV .Q0M PRN; Protocol; Per Protocol PRN Reason: Hypoglycemia Protocol Meropenem 500 mg/ Sodium (Chloride) 100 mls @ 100 mls/hr IVPB Q12 [facility] PRN Reason: Protocol Last Admin: 12/25/17 10:16 Dose: 100 mls/hr Micafungin Sodium 100 mg/ (Sodium Chloride) 100 mls @ 100 mls/hr IV Q24H [facility] PRN Reason: Protocol Last Admin: 12/25/17 10:07 Dose: 100 mls/hr Linezolid (Zyvox 600mg/300ml D5w) 600 mg in 300 mls @ 200 mls/hr IVPB Q12 [facility] PRN Reason: Protocol Last Admin: 12/24/17 21:23 Dose: 200 mls/hr BUPIVACAINE 0.125%/0.9% NACL (Bupivacaine-Ns 0.125% On-Q Tester Sound) 600 mls @ 4 mls/ hr IJ ONCE ONE Stop: 12/27/17 15:59 Last Admin: 12/21/17 10:08 Dose: 4 mls/hr Sodium Chloride 35 meq/Magnesium Sulfate 3 meq/Calcium Gluconate 4.5 meq/ Multivitamins/Vitamin C 10 ml/Heparin Sodium (Porcine) 1, 000 units/ Amino Acids 1,030.1663 mls @ 42 mls/hr IV .Q24H [facility] Stop: 12/25/17 17:59 Last Admin: 12/24/17 17:39 Dose: 42 mls/hr Sodium Chloride 35 meq/Magnesium Sulfate 3 meq/Calcium Gluconate 4.5 meq/ Multivitamins/Vitamin C 10 ml/Heparin Sodium (Porcine) 1, 000 units/ Amino Acids 1,030.1663 mls @ 42 mls/hr IV .Q24H ONE Stop: 12/26/17 17:59 Insulin Human Regular (Novolin R) 0 unit SC Q6 [facility] PRN Reason: Protocol Last Admin: 12/25/17 05:44 Dose: Not Given Pantoprazole Sodium (Protonix Inj) 40 mg IVP Q12H [facility] Last Admin: 12/25/17 10:17 Dose: 40 mg Saccharomyces Boulardii (Florastor) 250 mg PO Q12 [facility] Last Admin: 12/25/17 10:38 Dose: 250 mg - Labs Labs: 12/25/17 05:56 12/25/17 07:38 PT 14.0 SECONDS (9.7-12.2) H 12/24/17 08:54 INR 1.3 12/24/17 08:54 APTT 40 SECONDS (21-34) H 12/18/17 12:39 - Constitutional Appears: Toxic, Chronically Ill - Head Exam Head Exam: ATRAUMATIC, NORMAL INSPECTION, NORMOCEPHALIC - ENT Exam ENT Exam: Mucous Membranes Dry Additional comments: ETT - Respiratory Exam Respiratory Exam: Rhonchi, Respiratory Distress - Cardiovascular Exam Cardiovascular Exam: Tachycardia, +S1 - GI/Abdominal Exam GI & Abdominal Exam: Distended, Soft, Tenderness, Normal Bowel Sounds Additional comments: ex lap, drain - Extremities Exam Extremities Exam: Pedal Edema - Skin Skin Exam: Dry, Intact, Normal Color, Warm Assessment and Plan - Assessment and Plan (Free Text) Assessment: This is a 77 year old female with past medical history of hypertension, COPD, breast cancer s/p lumpectomy that presented to same day 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 Pt is s/p EGD/EUS with EMR complicated by bleeding and perforation s/p clip placement x 7, epi injection, and bipolar cautery. 1. Duodenal perforation s/p surgical repair 2. 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 ARF, ATN on HD 4. Sepsis 5. VDRF 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 and perforation that was treated with a combination of clipping, electrocautery and epinephrine - Duodenal perforation with no closure seen on repeat CT and UpperGI series, pt taken to OR with repair of perforation with jourdan patch - Anemia, H/H stable, monitor H/H, no active GI bleeding - Protonix BID - IV abx meropenema, linezolid and micfungin by ID - Pt clinically hemodynamically stable, no pressor - ARF likely ATN, s/p initiation of HD 12/20/17, monitor renal function - s/p RIJ permacath - Pt on TPN by ICU team would prefer enteral feedings, espically in setting of fever and elevated WBC - Pancultures - Surgery plans for gastrografin study today - Appreciate surgical consult - Will continue to follow pt closely <Andrew Flynn - Last Filed: 12/25/17 13:09> Objective - Vital Signs/Intake and Output Vital Signs (last 24 hours): Temp Pulse Resp BP Pulse Ox 99.2 F 116 H 31 H 135/55 L 100 12/25/17 09:45 12/25/17 12:30 12/25/17 12:30 12/25/17 11:34 12/25/17 12:30 Intake and Output: 12/25/17 12/25/17 06:59 18:59 Intake Total 904 326 Output Total 580 330 Balance 324 -4 - Medications Medications: Current Medications Acetaminophen (Tylenol 325mg Tab) 650 mg PO Q6 PRN PRN Reason: Fever >100.4 F Last Admin: 12/24/17 07:57 Dose: 650 mg Albuterol/Ipratropium (Duoneb 3 Mg/0.5 Mg (3 Ml) Ud) 3 ml INH RQ4 PRN PRN Reason: Shortness of Breath Last Admin: 12/24/17 08:04 Dose: 3 ml Dextrose (Dextrose 50% Inj) 0 ml IV STAT PRN; Protocol PRN Reason: Hypoglycemia Protocol Dextrose (Glutose 15) 15 gm PO ONCE PRN; Protocol PRN Reason: Hypoglycemia Protocol Epoetin Juan F (Procrit) 8,000 unit SC MWF [facility] Stop: 12/30/17 09:01 Glucagon (Glucagen Diagnostic Kit) 1 mg IM STAT PRN; Protocol PRN Reason: Hypoglycemia Protocol Heparin Sodium (Porcine) (Heparin) 5,000 units SC Q8 [facility] Last Admin: 12/25/17 13:04 Dose: 5,000 units Hydromorphone HCl (Dilaudid) 0.5 mg IVP Q4H PRN PRN Reason: Pain, severe (8-10) Last Admin: 12/24/17 21:46 Dose: 0.5 mg Dextrose (Dextrose 5% In Water 1000 Ml) 1,000 mls @ 0 mls/hr IV .Q0M PRN; Protocol; Per Protocol PRN Reason: Hypoglycemia Protocol Meropenem 500 mg/ Sodium (Chloride) 100 mls @ 100 mls/hr IVPB Q12 [facility] PRN Reason: Protocol Last Admin: 12/25/17 10:16 Dose: 100 mls/hr Micafungin Sodium 100 mg/ (Sodium Chloride) 100 mls @ 100 mls/hr IV Q24H [facility] PRN Reason: Protocol Last Admin: 12/25/17 10:07 Dose: 100 mls/hr Linezolid (Zyvox 600mg/300ml D5w) 600 mg in 300 mls @ 200 mls/hr IVPB Q12 [facility] PRN Reason: Protocol Last Admin: 12/25/17 11:30 Dose: 200 mls/hr BUPIVACAINE 0.125%/0.9% NACL (Bupivacaine-Ns 0.125% On-Q Tester Sound) 600 mls @ 4 mls/ hr IJ ONCE ONE Stop: 12/27/17 15:59 Last Admin: 12/21/17 10:08 Dose: 4 mls/hr Sodium Chloride 35 meq/Magnesium Sulfate 3 meq/Calcium Gluconate 4.5 meq/ Multivitamins/Vitamin C 10 ml/Heparin Sodium (Porcine) 1, 000 units/ Amino Acids 1,030.1663 mls @ 42 mls/hr IV .Q24H [facility] Stop: 12/25/17 17:59 Last Admin: 12/24/17 17:39 Dose: 42 mls/hr Sodium Chloride 35 meq/Magnesium Sulfate 3 meq/Calcium Gluconate 4.5 meq/ Multivitamins/Vitamin C 10 ml/Heparin Sodium (Porcine) 1, 000 units/ Amino Acids 1,030.1663 mls @ 42 mls/hr IV .Q24H ONE Stop: 12/26/17 17:59 Insulin Human Regular (Novolin R) 0 unit SC Q6 [facility] PRN Reason: Protocol Last Admin: 12/25/17 12:59 Dose: 1 unit Pantoprazole Sodium (Protonix Inj) 40 mg IVP Q12H [facility] Last Admin: 12/25/17 10:17 Dose: 40 mg Saccharomyces Boulardii (Florastor) 250 mg PO Q12 [facility] Last Admin: 12/25/17 10:38 Dose: 250 mg - Labs Labs: 12/25/17 05:56 12/25/17 07:38 PT 14.0 SECONDS (9.7-12.2) H 12/24/17 08:54 INR 1.3 12/24/17 08:54 APTT 40 SECONDS (21-34) H 12/18/17 12:39 Attending/Attestation - Attestation I have personally seen and examined this patient.: Yes I have fully participated in the care of the patient.: Yes I have reviewed all pertinent clinical information, including history, physical exam and plan: Yes Notes (Text): 12/25/17 13:08 77 year old female with h/o duodenal carcinoid s/p EMR c/b perforation s/p surgical repair, hospital course complicated by ATN requiring HD, mechanical ventilation. Wean from vent as tolerated. On tpn. UGI series to see if we can transition to enteral nutrition. Continue abx. Elevated wbc/fever, uncertain etiolgoy. ID following as well. Spoke with family.
--- NOTE | 2017-12-25 11:21 | CP.CCUPN ---
<Estefania Velzi - Last Filed: 12/25/17 11:17> CCU Subjective - Physician Review Subjective (Free Text): Patient seen and examined at bedside. Intubated on PRVC 14/40/500/5, not on sedation. CPAP trials, plan for extubation. CCU Objective - Vital Signs / Intake & Output Vital Signs (Last 4 hours): Vital Signs Temp Pulse Resp BP Pulse Ox 12/25/17 10:21 117 H 28 H 106/83 99 12/25/17 10:15 108 H 25 H 99 12/25/17 10:04 107 H 23 135/61 99 12/25/17 10:00 107 H 24 98 12/25/17 09:49 108 H 27 H 146/63 98 12/25/17 09:45 107 H 27 H 98 12/25/17 09:34 112 H 24 154/69 H 100 12/25/17 09:30 110 H 27 H 98 12/25/17 09:20 111 H 17 128/62 96 12/25/17 09:15 117 H 26 H 99 12/25/17 09:06 122 H 30 H 118/64 99 12/25/17 09:02 126 H 26 H 131/74 98 12/25/17 09:00 126 H 31 H 12/25/17 08:48 124 H 100 12/25/17 07:45 99 H 22 100 12/25/17 07:30 99.9 F H 96 H 27 H 100 Intake and Output (Last 8hrs): Intake & Output 12/24/17 12/25/17 12/25/17 22:59 06:59 14:59 Intake Total 736 336 42 Output Total 530 95 300 Balance 206 241 -258 Weight 239 lb 3.225 oz Intake: Intake, IV Amount 736 336 42 Right Distal Port PICC 400 right picc 2nd port 336 336 42 Output: Drainage 440 280 KORI 1 0 10 KORI 2 40 70 Right Nare 400 200 Urine 90 95 20 Urethral (Bruce) 90 95 20 Other: # Bowel Movements 1 - Physical Exam Head: Positive for: Atraumatic, Normocephalic, Ecchymosis Extroacular Muscles: Positive for: EOMI Conjunctiva: Positive for: Normal Mouth: Positive for: Other (INTUBATED) Nose (External): Positive for: Other (NGT in place ) Respiratory/Chest: Positive for: Clear to Auscultation. Negative for: Decreased Breath Sounds Cardiovascular: Positive for: Regular Rate and Rhythm Abdomen: Positive for: Tenderness, Normal Bowel Sounds, Guarding. Negative for : Distention Upper Extremity: Positive for: Normal Inspection, NORMAL PULSES, Neurovascularly Intact, Capillary Refill < 2s Lower Extremity: Positive for: Normal Inspection, NORMAL PULSES, Neurovascularly Intact, Capillary Refill < 2 s Neurological: Positive for: GCS=15, CN II-XII Intact Skin: Positive for: Warm, Dry, Normal Color Psychiatric: Positive for: Alert, Oriented x 3, Normal Insight, Normal Concentration - Medications Active Medications: Active Medications Generic Name Dose Route Start Last Admin Trade Name Freq PRN Reason Stop Dose Admin Acetaminophen 650 mg 12/23/17 15:32 12/24/17 07:57 Tylenol 325mg Tab PO 650 mg Q6 PRN Administration Fever >100.4 F Albuterol/Ipratropium 3 ml 12/16/17 12:03 12/24/17 08:04 Duoneb 3 Mg/0.5 Mg (3 Ml) Ud INH 3 ml RQ4 PRN Administration Shortness of Breath Dextrose 0 ml 12/16/17 12:08 Dextrose 50% Inj IV STAT PRN Hypoglycemia Protocol Protocol Dextrose 15 gm 12/16/17 12:08 Glutose 15 PO ONCE PRN Hypoglycemia Protocol Protocol Epoetin Juan F 8,000 unit 12/25/17 09:00 Procrit SC 12/30/17 09:01 MWF FESTUS Glucagon 1 mg 12/16/17 12:08 Glucagen Diagnostic Kit IM STAT PRN Hypoglycemia Protocol Protocol Heparin Sodium (Porcine) 5,000 units 12/20/17 06:00 12/25/17 05:44 Heparin SC Not Given Q8 FESTUS Hydromorphone HCl 0.5 mg 12/17/17 09:53 12/24/17 21:46 Dilaudid IVP 0.5 mg Q4H PRN Administration Pain, severe (8-10) Dextrose 1,000 mls @ 0 mls/hr 12/16/17 12:08 Dextrose 5% In Water 1000 Ml IV .Q0M PRN Hypoglycemia Protocol Protocol Per Protocol Meropenem 500 mg/ Sodium 100 mls @ 100 mls/hr 12/18/17 10:00 12/25/17 10:16 Chloride IVPB 100 mls/hr Q12 FESTUS Administration Protocol Micafungin Sodium 100 mg/ 100 mls @ 100 mls/hr 12/21/17 10:00 12/25/17 10:07 Sodium Chloride IV 100 mls/hr Q24H FESTUS Administration Protocol Linezolid 600 mg in 300 mls @ 200 mls/hr 12/20/17 22:00 12/24/17 21:23 Zyvox 600mg/300ml D5w IVPB 200 mls/hr Q12 FESTUS Administration Protocol BUPIVACAINE 0.125%/0.9% NACL 600 mls @ 4 mls/hr 12/21/17 10:00 12/21/17 10:08 Bupivacaine-Ns 0.125% On-Q Hospitality Director IJ 12/27/17 15:59 4 mls/hr ONCE ONE Administration Sodium Chloride 35 meq/ 1,030.1663 mls @ 42 mls/hr 12/24/17 18:00 12/24/17 17 :39 Magnesium Sulfate 3 meq/ IV 12/25/17 17:59 42 mls/hr Calcium Gluconate 4.5 meq/ .Q24H FESTUS Administration Multivitamins/Vitamin C 10 ml/ Heparin Sodium (Porcine) 1, 000 units/ Amino Acids Sodium Chloride 35 meq/ 1,030.1663 mls @ 42 mls/hr 12/25/17 18:00 Magnesium Sulfate 3 meq/ IV 12/26/17 17:59 Calcium Gluconate 4.5 meq/ .Q24H ONE Multivitamins/Vitamin C 10 ml/ Heparin Sodium (Porcine) 1, 000 units/ Amino Acids Insulin Human Regular 0 unit 12/19/17 00:00 12/25/17 05:44 Novolin R SC Not Given Q6 FESTUS Protocol Pantoprazole Sodium 40 mg 12/23/17 22:00 12/25/17 10:17 Protonix Inj IVP 40 mg Q12H FESTUS Administration Saccharomyces Boulardii 250 mg 12/23/17 22:00 12/25/17 10:38 Florastor PO 250 mg Q12 FESTUS Administration - Patient Studies Lab Studies: Microbiology Studies 12/24/17 09:41 Blood Culture - Preliminary Blood-Thru Central Line NO GROWTH AFTER 24 HOURS 12/24/17 12:36 Catheter Tip Culture - Preliminary Femer Right No growth. Lab Studies 12/25/17 12/25/17 12/25/17 Range/Units 09:41 07:38 05:56 WBC (4.8-10.8) K/uL RBC (3.80-5.20) Mil/uL Hgb (11.0-16.0) g/dL Hct (34.0-47.0) % MCV (81.0-99.0) fL MCH (27.0-31.0) pg MCHC (33.0-37.0) g/dL RDW (11.5-14.5) % Plt Count (130-400) K/uL MPV (7.2-11.7) fL Neut % (Auto) (50.0-75.0) % Lymph % (Auto) (20.0-40.0) % [place] % (Auto) (0.0-10.0) % Eos % (Auto) (0.0-4.0) % Baso % (Auto) (0.0-2.0) % Neut # (Auto) (1.8-7.0) K/uL Lymph # (Auto) (1.0-4.3) K/uL [place] # (Auto) (0.0-0.8) K/uL Eos # (Auto) (0.0-0.7) K/uL Baso # (Auto) (0.0-0.2) K/uL Neutrophils % (Manual) (50-75) % Band Neutrophils % (0-2) % Lymphocytes % (Manual) (20-40) % Reactive Lymphs % (0-0) % Monocytes % (Manual) (0-10) % Eosinophils % (Manual) (0-4) % Toxic Granulation Platelet Estimate (NORMAL) Hypochromasia (manual) Poikilocytosis (manual Anisocytosis (manual) Microcytosis (manual) Puncture Site pCO2 (35-45) mm/Hg pO2 (80-100) mm/Hg HCO3 (21-28) mmol/L ABG pH (7.35-7.45) ABG Total CO2 (22-28) mmol/L ABG O2 Saturation (95-98) % ABG Base Excess (-2.0-3.0) mmol/L ABG Hemoglobin (11.7-17.4) g/dL ABG Carboxyhemoglobin (0.5-1.5) % POC ABG HHb (Measured) (0.0-5.0) % ABG Methemoglobin (0.0-3.0) % [place] Test A-a O2 Difference mm/Hg Respiratory Index Hgb O2 Saturation (95.0-98.0) % Vent Mode Mechanical Rate FiO2 % Tidal Volume PEEP Sodium 141 134 (132-148) mmol/L Potassium 3.7 3.2 L (3.6-5.2) mmol/L Chloride 104 98 (98-107) mmol/L Carbon Dioxide 24 21 L (22-30) mmol/L Anion Gap 17 18 (10-20) BUN 73 H 59 H (7-17) mg/dL Creatinine 5.5 H 5.1 H (0.7-1.2) mg/dL Est GFR ( Amer) 9 10 Est GFR (Non-Af Amer) 7 8 POC Glucose (mg/dL) (65-110) mg/dL Random Glucose 133 H 1071 H* (65-105) mg/dL Calcium 7.1 L 6.7 L (8.6-10.4) mg/dl Phosphorus 3.6 (2.5-4.5) mg/dL Magnesium 2.1 (1.6-2.3) mg/dL Total Bilirubin 0.8 0.8 (0.2-1.3) mg/dL AST 41 H D 34 (14-36) U/L ALT 25 27 (9-52) U/L Alkaline Phosphatase 72 52 (38-126) U/L Total Protein 5.7 L 4.8 L (6.3-8.3) g/dL Albumin 2.8 L 2.7 L (3.5-5.0) g/dL Globulin 2.9 2.1 L (2.2-3.9) gm/dL Albumin/Globulin Ratio 1.0 1.3 (1.0-2.1) Procalcitonin (0.19-0.49) NG/ML C. difficile Ag & Toxin (NEGATIVE) Blood Type O POSITIVE Antibody Screen Negative 12/25/17 12/25/17 12/25/17 Range/Units 05:56 05:42 05:30 WBC 20.9 H (4.8-10.8) K/uL RBC 2.60 L (3.80-5.20) Mil/uL Hgb 7.4 L (11.0-16.0) g/dL Hct 25.7 L (34.0-47.0) % MCV 98.6 D (81.0-99.0) fL MCH 28.4 (27.0-31.0) pg MCHC 28.7 L (33.0-37.0) g/dL RDW 16.0 H (11.5-14.5) % Plt Count 180 (130-400) K/uL MPV 10.7 (7.2-11.7) fL Neut % (Auto) 89.5 H (50.0-75.0) % Lymph % (Auto) 4.2 L (20.0-40.0) % [place] % (Auto) 4.1 (0.0-10.0) % Eos % (Auto) 2.0 (0.0-4.0) % Baso % (Auto) 0.2 (0.0-2.0) % Neut # (Auto) 18.7 H (1.8-7.0) K/uL Lymph # (Auto) 0.9 L (1.0-4.3) K/uL [place] # (Auto) 0.9 H (0.0-0.8) K/uL Eos # (Auto) 0.4 (0.0-0.7) K/uL Baso # (Auto) 0.0 (0.0-0.2) K/uL Neutrophils % (Manual) 80 H (50-75) % Band Neutrophils % 4 H (0-2) % Lymphocytes % (Manual) 5 L (20-40) % Reactive Lymphs % 1 H (0-0) % Monocytes % (Manual) 6 (0-10) % Eosinophils % (Manual) 4 (0-4) % Toxic Granulation Present Platelet Estimate Normal (NORMAL) Hypochromasia (manual) Slight Poikilocytosis (manual Slight Anisocytosis (manual) Slight Microcytosis (manual) Slight Puncture Site Rr pCO2 34 L (35-45) mm/Hg pO2 96 (80-100) mm/Hg HCO3 24.4 (21-28) mmol/L ABG pH 7.44 (7.35-7.45) ABG Total CO2 24.1 (22-28) mmol/L ABG O2 Saturation 99.2 H (95-98) % ABG Base Excess -0.7 (-2.0-3.0) mmol/L ABG Hemoglobin 9.5 L (11.7-17.4) g/dL ABG Carboxyhemoglobin 1.8 H (0.5-1.5) % POC ABG HHb (Measured) 0.8 (0.0-5.0) % ABG Methemoglobin 1.1 (0.0-3.0) % Richard Test Pos A-a O2 Difference 147.0 mm/Hg Respiratory Index 1.5 Hgb O2 Saturation 96.3 (95.0-98.0) % Vent Mode Prvc Mechanical Rate 14 FiO2 40.0 % Tidal Volume 500 PEEP 5 Sodium (132-148) mmol/L Potassium (3.6-5.2) mmol/L Chloride (98-107) mmol/L Carbon Dioxide (22-30) mmol/L Anion Gap (10-20) BUN (7-17) mg/dL Creatinine (0.7-1.2) mg/dL Est GFR ( Amer) Est GFR (Non-Af Amer) POC Glucose (mg/dL) 140 H (65-110) mg/dL Random Glucose (65-105) mg/dL Calcium (8.6-10.4) mg/dl Phosphorus (2.5-4.5) mg/dL Magnesium (1.6-2.3) mg/dL Total Bilirubin (0.2-1.3) mg/dL AST (14-36) U/L ALT (9-52) U/L Alkaline Phosphatase (38-126) U/L Total Protein (6.3-8.3) g/dL Albumin (3.5-5.0) g/dL Globulin (2.2-3.9) gm/dL Albumin/Globulin Ratio (1.0-2.1) Procalcitonin (0.19-0.49) NG/ML C. difficile Ag & Toxin (NEGATIVE) Blood Type Antibody Screen 12/24/17 12/24/17 12/24/17 Range/Units 23:45 17:28 16:10 WBC (4.8-10.8) K/uL RBC (3.80-5.20) Mil/uL Hgb (11.0-16.0) g/dL Hct (34.0-47.0) % MCV (81.0-99.0) fL MCH (27.0-31.0) pg MCHC (33.0-37.0) g/dL RDW (11.5-14.5) % Plt Count (130-400) K/uL MPV (7.2-11.7) fL Neut % (Auto) (50.0-75.0) % Lymph % (Auto) (20.0-40.0) % [place] % (Auto) (0.0-10.0) % Eos % (Auto) (0.0-4.0) % Baso % (Auto) (0.0-2.0) % Neut # (Auto) (1.8-7.0) K/uL Lymph # (Auto) (1.0-4.3) K/uL [place] # (Auto) (0.0-0.8) K/uL Eos # (Auto) (0.0-0.7) K/uL Baso # (Auto) (0.0-0.2) K/uL Neutrophils % (Manual) (50-75) % Band Neutrophils % (0-2) % Lymphocytes % (Manual) (20-40) % Reactive Lymphs % (0-0) % Monocytes % (Manual) (0-10) % Eosinophils % (Manual) (0-4) % Toxic Granulation Platelet Estimate (NORMAL) Hypochromasia (manual) Poikilocytosis (manual Anisocytosis (manual) Microcytosis (manual) Puncture Site pCO2 (35-45) mm/Hg pO2 (80-100) mm/Hg HCO3 (21-28) mmol/L ABG pH (7.35-7.45) ABG Total CO2 (22-28) mmol/L ABG O2 Saturation (95-98) % ABG Base Excess (-2.0-3.0) mmol/L ABG Hemoglobin (11.7-17.4) g/dL ABG Carboxyhemoglobin (0.5-1.5) % POC ABG HHb (Measured) (0.0-5.0) % ABG Methemoglobin (0.0-3.0) % Richard Test A-a O2 Difference mm/Hg Respiratory Index Hgb O2 Saturation (95.0-98.0) % Vent Mode Mechanical Rate FiO2 % Tidal Volume PEEP Sodium (132-148) mmol/L Potassium (3.6-5.2) mmol/L Chloride (98-107) mmol/L Carbon Dioxide (22-30) mmol/L Anion Gap (10-20) BUN (7-17) mg/dL Creatinine (0.7-1.2) mg/dL Est GFR ( Amer) Est GFR (Non-Af Amer) POC Glucose (mg/dL) 170 H 153 H (65-110) mg/dL Random Glucose (65-105) mg/dL Calcium (8.6-10.4) mg/dl Phosphorus (2.5-4.5) mg/dL Magnesium (1.6-2.3) mg/dL Total Bilirubin (0.2-1.3) mg/dL AST (14-36) U/L ALT (9-52) U/L Alkaline Phosphatase (38-126) U/L Total Protein (6.3-8.3) g/dL Albumin (3.5-5.0) g/dL Globulin (2.2-3.9) gm/dL Albumin/Globulin Ratio (1.0-2.1) Procalcitonin (0.19-0.49) NG/ML C. difficile Ag & Toxin Negative (NEGATIVE) Blood Type Antibody Screen 12/24/17 12/24/17 Range/Units 11:31 09:41 WBC (4.8-10.8) K/uL RBC (3.80-5.20) Mil/uL Hgb (11.0-16.0) g/dL Hct (34.0-47.0) % MCV (81.0-99.0) fL MCH (27.0-31.0) pg MCHC (33.0-37.0) g/dL RDW (11.5-14.5) % Plt Count (130-400) K/uL MPV (7.2-11.7) fL Neut % (Auto) (50.0-75.0) % Lymph % (Auto) (20.0-40.0) % [place] % (Auto) (0.0-10.0) % Eos % (Auto) (0.0-4.0) % Baso % (Auto) (0.0-2.0) % Neut # (Auto) (1.8-7.0) K/uL Lymph # (Auto) (1.0-4.3) K/uL [place] # (Auto) (0.0-0.8) K/uL Eos # (Auto) (0.0-0.7) K/uL Baso # (Auto) (0.0-0.2) K/uL Neutrophils % (Manual) (50-75) % Band Neutrophils % (0-2) % Lymphocytes % (Manual) (20-40) % Reactive Lymphs % (0-0) % Monocytes % (Manual) (0-10) % Eosinophils % (Manual) (0-4) % Toxic Granulation Platelet Estimate (NORMAL) Hypochromasia (manual) Poikilocytosis (manual Anisocytosis (manual) Microcytosis (manual) Puncture Site pCO2 (35-45) mm/Hg pO2 (80-100) mm/Hg HCO3 (21-28) mmol/L ABG pH (7.35-7.45) ABG Total CO2 (22-28) mmol/L ABG O2 Saturation (95-98) % ABG Base Excess (-2.0-3.0) mmol/L ABG Hemoglobin (11.7-17.4) g/dL ABG Carboxyhemoglobin (0.5-1.5) % POC ABG HHb (Measured) (0.0-5.0) % ABG Methemoglobin (0.0-3.0) % Richard Test A-a O2 Difference mm/Hg Respiratory Index Hgb O2 Saturation (95.0-98.0) % Vent Mode Mechanical Rate FiO2 % Tidal Volume PEEP Sodium (132-148) mmol/L Potassium (3.6-5.2) mmol/L Chloride (98-107) mmol/L Carbon Dioxide (22-30) mmol/L Anion Gap (10-20) BUN (7-17) mg/dL Creatinine (0.7-1.2) mg/dL Est GFR ( Amer) Est GFR (Non-Af Amer) POC Glucose (mg/dL) 193 H (65-110) mg/dL Random Glucose (65-105) mg/dL Calcium (8.6-10.4) mg/dl Phosphorus (2.5-4.5) mg/dL Magnesium (1.6-2.3) mg/dL Total Bilirubin (0.2-1.3) mg/dL AST (14-36) U/L ALT (9-52) U/L Alkaline Phosphatase (38-126) U/L Total Protein (6.3-8.3) g/dL Albumin (3.5-5.0) g/dL Globulin (2.2-3.9) gm/dL Albumin/Globulin Ratio (1.0-2.1) Procalcitonin 20.22 H (0.19-0.49) NG/ML C. difficile Ag & Toxin (NEGATIVE) Blood Type Antibody Screen Laboratory Results - last 24 hr 12/24/17 12/24/17 12/24/17 09:41 11:31 16:10 WBC RBC Hgb Hct MCV MCH MCHC RDW Plt Count MPV Neut % (Auto) Lymph % (Auto) [place] % (Auto) Eos % (Auto) Baso % (Auto) Neut # (Auto) Lymph # (Auto) [place] # (Auto) Eos # (Auto) Baso # (Auto) Neutrophils % (Manual) Band Neutrophils % Lymphocytes % (Manual) Reactive Lymphs % Monocytes % (Manual) Eosinophils % (Manual) Toxic Granulation Platelet Estimate Hypochromasia (manual) Poikilocytosis (manual Anisocytosis (manual) Microcytosis (manual) Puncture Site pCO2 pO2 HCO3 ABG pH ABG Total CO2 ABG O2 Saturation ABG Base Excess ABG Hemoglobin ABG Carboxyhemoglobin POC ABG HHb (Measured) ABG Methemoglobin Richard Test A-a O2 Difference Respiratory Index Hgb O2 Saturation Vent Mode Mechanical Rate FiO2 Tidal Volume PEEP Sodium Potassium Chloride Carbon Dioxide Anion Gap BUN Creatinine Est GFR ( Amer) Est GFR (Non-Af Amer) POC Glucose (mg/dL) 193 H Random Glucose Calcium Phosphorus Magnesium Total Bilirubin AST ALT Alkaline Phosphatase Total Protein Albumin Globulin Albumin/Globulin Ratio Procalcitonin 20.22 H C. difficile Ag & Toxin Negative Blood Type Antibody Screen 12/24/17 12/24/17 12/25/17 17:28 23:45 05:30 WBC RBC Hgb Hct MCV MCH MCHC RDW Plt Count MPV Neut % (Auto) Lymph % (Auto) [place] % (Auto) Eos % (Auto) Baso % (Auto) Neut # (Auto) Lymph # (Auto) [place] # (Auto) Eos # (Auto) Baso # (Auto) Neutrophils % (Manual) Band Neutrophils % Lymphocytes % (Manual) Reactive Lymphs % Monocytes % (Manual) Eosinophils % (Manual) Toxic Granulation Platelet Estimate Hypochromasia (manual) Poikilocytosis (manual Anisocytosis (manual) Microcytosis (manual) Puncture Site Rr pCO2 34 L pO2 96 HCO3 24.4 ABG pH 7.44 ABG Total CO2 24.1 ABG O2 Saturation 99.2 H ABG Base Excess -0.7 ABG Hemoglobin 9.5 L ABG Carboxyhemoglobin 1.8 H POC ABG HHb (Measured) 0.8 ABG Methemoglobin 1.1 Richard Test Pos A-a O2 Difference 147.0 Respiratory Index 1.5 Hgb O2 Saturation 96.3 Vent Mode Prvc Mechanical Rate 14 FiO2 40.0 Tidal Volume 500 PEEP 5 Sodium Potassium Chloride Carbon Dioxide Anion Gap BUN Creatinine Est GFR ( Amer) Est GFR (Non-Af Amer) POC Glucose (mg/dL) 153 H 170 H Random Glucose Calcium Phosphorus Magnesium Total Bilirubin AST ALT Alkaline Phosphatase Total Protein Albumin Globulin Albumin/Globulin Ratio Procalcitonin C. difficile Ag & Toxin Blood Type Antibody Screen 12/25/17 12/25/17 12/25/17 05:42 05:56 05:56 WBC 20.9 H RBC 2.60 L Hgb 7.4 L Hct 25.7 L MCV 98.6 D MCH 28.4 MCHC 28.7 L RDW 16.0 H Plt Count 180 MPV 10.7 Neut % (Auto) 89.5 H Lymph % (Auto) 4.2 L [place] % (Auto) 4.1 Eos % (Auto) 2.0 Baso % (Auto) 0.2 Neut # (Auto) 18.7 H Lymph # (Auto) 0.9 L [place] # (Auto) 0.9 H Eos # (Auto) 0.4 Baso # (Auto) 0.0 Neutrophils % (Manual) 80 H Band Neutrophils % 4 H Lymphocytes % (Manual) 5 L Reactive Lymphs % 1 H Monocytes % (Manual) 6 Eosinophils % (Manual) 4 Toxic Granulation Present Platelet Estimate Normal Hypochromasia (manual) Slight Poikilocytosis (manual Slight Anisocytosis (manual) Slight Microcytosis (manual) Slight Puncture Site pCO2 pO2 HCO3 ABG pH ABG Total CO2 ABG O2 Saturation ABG Base Excess ABG Hemoglobin ABG Carboxyhemoglobin POC ABG HHb (Measured) ABG Methemoglobin Richard Test A-a O2 Difference Respiratory Index Hgb O2 Saturation Vent Mode Mechanical Rate FiO2 Tidal Volume PEEP Sodium 134 Potassium 3.2 L Chloride 98 Carbon Dioxide 21 L Anion Gap 18 BUN 59 H Creatinine 5.1 H Est GFR ( Amer) 10 Est GFR (Non-Af Amer) 8 POC Glucose (mg/dL) 140 H Random Glucose 1071 H* Calcium 6.7 L Phosphorus 3.6 Magnesium 2.1 Total Bilirubin 0.8 AST 34 ALT 27 Alkaline Phosphatase 52 Total Protein 4.8 L Albumin 2.7 L Globulin 2.1 L Albumin/Globulin Ratio 1.3 Procalcitonin C. difficile Ag & Toxin Blood Type Antibody Screen 12/25/17 12/25/17 07:38 09:41 WBC RBC Hgb Hct MCV MCH MCHC RDW Plt Count MPV Neut % (Auto) Lymph % (Auto) [place] % (Auto) Eos % (Auto) Baso % (Auto) Neut # (Auto) Lymph # (Auto) [place] # (Auto) Eos # (Auto) Baso # (Auto) Neutrophils % (Manual) Band Neutrophils % Lymphocytes % (Manual) Reactive Lymphs % Monocytes % (Manual) Eosinophils % (Manual) Toxic Granulation Platelet Estimate Hypochromasia (manual) Poikilocytosis (manual Anisocytosis (manual) Microcytosis (manual) Puncture Site pCO2 pO2 HCO3 ABG pH ABG Total CO2 ABG O2 Saturation ABG Base Excess ABG Hemoglobin ABG Carboxyhemoglobin POC ABG HHb (Measured) ABG Methemoglobin Richard Test A-a O2 Difference Respiratory Index Hgb O2 Saturation Vent Mode Mechanical Rate FiO2 Tidal Volume PEEP Sodium 141 Potassium 3.7 Chloride 104 Carbon Dioxide 24 Anion Gap 17 BUN 73 H Creatinine 5.5 H Est GFR ( Amer) 9 Est GFR (Non-Af Amer) 7 POC Glucose (mg/dL) Random Glucose 133 H Calcium 7.1 L Phosphorus Magnesium Total Bilirubin 0.8 AST 41 H D ALT 25 Alkaline Phosphatase 72 Total Protein 5.7 L Albumin 2.8 L Globulin 2.9 Albumin/Globulin Ratio 1.0 Procalcitonin C. 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 During the procedure, patient experienced a significant amount of bleeding which was treated with a combination of clipping , electrocautery and epinephrine. Bleeding was significantly reduced however patient was subsequently admitted to ICU for close observation. Patient was admitted to ICU due to SBP 220/140s initially on cardene drip x 1 - 2 hours- now normotensive; patient now in ATN with CRE of 6.8. Returned to OR 12/18/17 due to increasing free air noted on repeat CT scan ; s/p ex lap primary repair of duodenal perforation, jourdan patch. Omentectomy. Picc line placed 12/20/17 Right shiley catheter placed - 12/20 - removed 12/24. Dialysis 12/20 and 12/21. Permacath placed 12/25. Dialysis 12/25 and 1 unit PRBC transfused. 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 Alatorre - Previous hemorrhage - stabilized with a combination of clipping, electrocautery and epinephrine. - PPI Q12, IVF - Ct chest, abdomen, pelvis 2/2 abdominal pain and guarding on exam: Mild increase in the extent of pneumoperitoneum. Increasing ascites. Extensive gas adjacent to 2nd duodenum and nasim hepatis. Status post cholecystectomy. Nasogastric tube. Fluid in retroperitoneum and gas in perinephric space on right side. Cannot rule out pancreatitis. Please correlate. Trace right pleural effusion. No pulmonary infiltrate. - Upper GI series - Free air noted - As per surgery patient is for OR due to increasing free air ; s/p ex lap primary repair of duodenal perforation, jourdan patch. Omentectomy. 6/13 A: Pancreatic nodule - Questionable 9 mm rounded fluid density mass in the pancreatic body. This was not clearly appreciated on prior CT examination of 12/16/2017. Further evaluation is advised when clinically feasible with multiphasic contrast- enhanced CT. A: Transaminitis, Elevated T. Bili - downtrending - Viral hepatitis - negative - Abominal US - Diffuse increased echogenicity in the liver may reflect hepatic steatosis however parenchymal infectious/ inflammatory etiologies cannot be entirely excluded. Clinical and laboratory correlation is advised. Mild perihepatic ascites. Endo: A: Thyroid Nodule - There is a 1.9 cm mass in the lower pole of the left thyroid lobe. - Correlate with thyroid ultrasound examination. A: Hypocalcemia - Repleting IV A: IGT - HgA1c 5.9 Renal: A: ARF - Improving with HD - 08/09 ATN - Avoid nephrotoxic drugs - Abdominal US- no sign of renal obstruction - Inserted bruce - Right Shiley catheter inserted 12/20- removed 12/24 - Dialysis 12/20, 12/21, 12/23, 12/25 - Permacath placed 12/25/17 ID: A: Bandemia - resolving ID Consulted - Dr. Quinonez - Afebrile, vitals stable, no leukocytosis, no source of infection - Patient was prince-cultured 12/17/17 - all negative - Bandemia increasing- 61, Procal - 12.04, lactate 2.4--> 1.7 - Changed zosyn to Meropenem renally dosed - Started 12/20/17 linezolid (GPC coverage) and micafungin 12/21 (fungal coverage ) -- gross abdominal spillage, de-escalate as per intra-op cultures A: Fever - All Cultures negative to date - Right dialysis catheter removed 12/24 - Repeat BC and catheter tip cultures sent 12/24/2 fevers A: Diarrhea - Likely 2/2 to abx - Diff- negative, probiotic started Heme/ Onc: A: Anemia - Hemoglobin baseline 13-14 - CT chest, ab, pelvis - no evidence of internal hemorrhage - s/p 1 unit 12/20, 2nd unit transfused 12/25 - Continue to monitor A: Hx breast cancer s/p lumpectomy Prophylaxis - PPI Q12 - SCDs, VTE c/i post op / concern for bleeding - Right PICC line 12/20, Right shiley cath inserted 12/20 - REMOVED 12/24, R Permacath placed 12/25 - Currently on TPN, with plans to extubate DW Dr. Shelton, Estefania Veliz DO, PGY-1 <Delgado Shelton S - Last Filed: 12/25/17 17:14> CCU Objective - Vital Signs / Intake & Output Vital Signs (Last 4 hours): Vital Signs Temp Pulse Pulse Resp BP BP Pulse Ox 12/25/17 17:05 98 H 31 H 107/46 L 99 12/25/17 17:00 98 H 32 H 99 18 16:50 100 H 29 H 97/38 L 107/46 L 98 12/25/17 16:45 101 H 29 H 99 18 16:35 101 H 30 H 96/49 L 99 12/25/17 16:30 102 H 29 H 98 18 16:21 98.9 F 100 H 28 H 105/51 L 18 16:20 100 H 26 H 105/51 L 105/51 L 98 18 16:15 98 H 26 H 98 18 16:05 103 H 28 H 104/50 L 98 12/25/17 16:00 105 H 28 H 98 18 15:53 109 H 29 H 97 18 15:52 109 H 27 H 97 18 15:51 99.3 F 109 H 29 H 113/48 L 18 15:50 110 H 27 H 98 18 15:45 116 H 29 H 97 18 15:42 123 H 29 H 113/48 L 98 18 15:36 99.5 F 128 H 39 H 119/50 L 99 12/25/18 15:30 127 H 19 100 18 15:21 100.4 F H 126 H 32 H 122/50 L 100 2018 15:20 122/50 L 18 15:15 127 H 22 100 06/18 15:14 130 H 22 113/51 L 100 18 15:07 130 H 30 H 100 18 15:05 113/51 L 06/20/18 15:00 128 H 33 H 100 12/25/17 14:51 130 H 20 122/49 L 100 12/25/17 14:50 122/49 L 12/25/17 14:45 128 H 21 100 12/25/17 14:43 100.5 F H 12/25/17 14:38 125 H 27 H 116/56 L 100 12/25/17 14:36 123 H 21 119/54 L 100 12/25/17 14:35 119/56 L 12/25/17 14:30 121 H 20 100 12/25/17 14:20 100.5 F H 110 H 111 H 29 H 135/53 L 135/53 L 100 12/25/17 14:15 113 H 32 H 100 12/25/17 14:00 113 H 28 H 100 12/25/17 13:45 109 H 27 H 100 12/25/17 13:40 99.4 F 111 H 29 H 141/60 12/25/17 13:36 111 H 31 H 141/60 12/25/17 13:30 109 H 25 H 100 12/25/17 13:15 110 H 30 H 100 Intake and Output (Last 8hrs): Intake & Output 12/25/17 12/25/17 12/25/17 06:59 14:59 22:59 Intake Total 336 752 367 Output Total 95 425 20 Balance 241 327 347 Weight 239 lb 3.225 oz Intake: Intake, IV Amount 336 752 42 Left Antecubital 100 Right Distal Port PICC 400 right picc 2nd port 336 252 42 Blood Product 325 Red Blood Cells Cpd As1 325 Lr Unit [id number] Output: Drainage 320 KORI 1 10 KORI 2 110 Right Nare 200 Urine 95 105 20 Urethral (Bruce) 95 105 20 Other: # Bowel Movements 1 - Medications Active Medications: Active Medications Generic Name Dose Route Start Last Admin Trade Name Freq PRN Reason Stop Dose Admin Acetaminophen 650 mg 12/23/17 15:32 12/25/17 14:43 Tylenol 325mg Tab PO 650 mg Q6 PRN Administration Fever >100.4 F Albuterol/Ipratropium 3 ml 12/16/17 12:03 12/24/17 08:04 Duoneb 3 Mg/0.5 Mg (3 Ml) Ud INH 3 ml RQ4 PRN Administration Shortness of Breath Dextrose 0 ml 12/16/17 12:08 Dextrose 50% Inj IV STAT PRN Hypoglycemia Protocol Protocol Dextrose 15 gm 12/16/17 12:08 Glutose 15 PO ONCE PRN Hypoglycemia Protocol Protocol Epoetin Juan F 8,000 unit 12/25/17 15:00 12/25/17 14:39 Procrit IV 12/30/17 09:01 8,000 unit MWF FESTUS Administration Glucagon 1 mg 12/16/17 12:08 Glucagen Diagnostic Kit IM STAT PRN Hypoglycemia Protocol Protocol Heparin Sodium (Porcine) 5,000 units 12/20/17 06:00 12/25/17 13:04 Heparin SC 5,000 units Q8 FESTUS Administration Heparin Sodium (Porcine) 3,700 units 12/25/17 16:46 12/25/17 16:58 Heparin IVP 3,700 units MWF FESTUS Administration Hydromorphone HCl 0.5 mg 12/17/17 09:53 12/25/17 15:41 Dilaudid IVP 0.5 mg Q4H PRN Administration Pain, severe (8-10) Dextrose 1,000 mls @ 0 mls/hr 12/16/17 12:08 Dextrose 5% In Water 1000 Ml IV .Q0M PRN Hypoglycemia Protocol Protocol Per Protocol Meropenem 500 mg/ Sodium 100 mls @ 100 mls/hr 12/18/17 10:00 12/25/17 10:16 Chloride IVPB 100 mls/hr Q12 FESTUS Administration Protocol Micafungin Sodium 100 mg/ 100 mls @ 100 mls/hr 12/21/17 10:00 12/25/17 10:07 Sodium Chloride IV 100 mls/hr Q24H FESTUS Administration Protocol Linezolid 600 mg in 300 mls @ 200 mls/hr 12/20/17 22:00 12/25/17 11:30 Zyvox 600mg/300ml D5w IVPB 200 mls/hr Q12 FESTUS Administration Protocol BUPIVACAINE 0.125%/0.9% NACL 600 mls @ 4 mls/hr 12/21/17 10:00 12/21/17 10:08 Bupivacaine-Ns 0.125% On-Q Hospitality Director IJ 12/27/17 15:59 4 mls/hr ONCE ONE Administration Sodium Chloride 35 meq/ 1,030.1663 mls @ 42 mls/hr 12/24/17 18:00 12/24/17 17 :39 Magnesium Sulfate 3 meq/ IV 12/25/17 17:59 42 mls/hr Calcium Gluconate 4.5 meq/ .Q24H FESTUS Administration Multivitamins/Vitamin C 10 ml/ Heparin Sodium (Porcine) 1, 000 units/ Amino Acids Sodium Chloride 35 meq/ 1,030.1663 mls @ 42 mls/hr 12/25/17 18:00 Magnesium Sulfate 3 meq/ IV 12/26/17 17:59 Calcium Gluconate 4.5 meq/ .Q24H ONE Multivitamins/Vitamin C 10 ml/ Heparin Sodium (Porcine) 1, 000 units/ Amino Acids Insulin Human Regular 0 unit 12/19/17 00:00 12/25/17 12:59 Novolin R SC 1 unit Q6 FESTUS Administration Protocol Pantoprazole Sodium 40 mg 12/23/17 22:00 12/25/17 10:17 Protonix Inj IVP 40 mg Q12H FESTUS Administration Saccharomyces Boulardii 250 mg 12/23/17 22:00 12/25/17 10:38 Florastor PO 250 mg Q12 FESTUS Administration - Patient Studies Lab Studies: Microbiology Studies 12/25/17 09:41 Gram Stain - Final Sputum Induced 12/25/17 12:48 Gram Stain - Final Abdomen 12/24/17 14:20 Blood Culture - Preliminary Blood-Thru Central Line NO GROWTH AFTER 24 HOURS 12/24/17 09:41 Blood Culture - Preliminary Blood-Thru Central Line NO GROWTH AFTER 24 HOURS 12/24/17 12:36 Catheter Tip Culture - Preliminary Femer Right No growth. Lab Studies 12/25/17 12/25/17 12/25/17 Range/Units 14:30 11:06 09:41 WBC (4.8-10.8) K/uL RBC (3.80-5.20) Mil/uL Hgb (11.0-16.0) g/dL Hct (34.0-47.0) % MCV (81.0-99.0) fL MCH (27.0-31.0) pg MCHC (33.0-37.0) g/dL RDW (11.5-14.5) % Plt Count (130-400) K/uL MPV (7.2-11.7) fL Neut % (Auto) (50.0-75.0) % Lymph % (Auto) (20.0-40.0) % [place] % (Auto) (0.0-10.0) % Eos % (Auto) (0.0-4.0) % Baso % (Auto) (0.0-2.0) % Neut # (Auto) (1.8-7.0) K/uL Lymph # (Auto) (1.0-4.3) K/uL [place] # (Auto) (0.0-0.8) K/uL Eos # (Auto) (0.0-0.7) K/uL Baso # (Auto) (0.0-0.2) K/uL Neutrophils % (Manual) (50-75) % Band Neutrophils % (0-2) % Lymphocytes % (Manual) (20-40) % Reactive Lymphs % (0-0) % Monocytes % (Manual) (0-10) % Eosinophils % (Manual) (0-4) % Toxic Granulation Platelet Estimate (NORMAL) Hypochromasia (manual) Poikilocytosis (manual Anisocytosis (manual) Microcytosis (manual) Puncture Site pCO2 (35-45) mm/Hg pO2 (80-100) mm/Hg HCO3 (21-28) mmol/L ABG pH (7.35-7.45) ABG Total CO2 (22-28) mmol/L ABG O2 Saturation (95-98) % ABG Base Excess (-2.0-3.0) mmol/L ABG Hemoglobin (11.7-17.4) g/dL ABG Carboxyhemoglobin (0.5-1.5) % POC ABG HHb (Measured) (0.0-5.0) % ABG Methemoglobin (0.0-3.0) % Richard Test A-a O2 Difference mm/Hg Respiratory Index Hgb O2 Saturation (95.0-98.0) % Vent Mode Mechanical Rate FiO2 % Tidal Volume PEEP Sodium (132-148) mmol/L Potassium (3.6-5.2) mmol/L Chloride (98-107) mmol/L Carbon Dioxide (22-30) mmol/L Anion Gap (10-20) BUN (7-17) mg/dL Creatinine (0.7-1.2) mg/dL Est GFR ( Amer) Est GFR (Non-Af Amer) POC Glucose (mg/dL) 162 H (65-110) mg/dL Random Glucose (65-105) mg/dL Calcium (8.6-10.4) mg/dl Phosphorus (2.5-4.5) mg/dL Magnesium (1.6-2.3) mg/dL Total Bilirubin (0.2-1.3) mg/dL AST (14-36) U/L ALT (9-52) U/L Alkaline Phosphatase (38-126) U/L Total Protein (6.3-8.3) g/dL Albumin (3.5-5.0) g/dL Globulin (2.2-3.9) gm/dL Albumin/Globulin Ratio (1.0-2.1) Stool Occult Blood Negative (NEGATIVE) C. difficile Ag & Toxin (NEGATIVE) Blood Type O POSITIVE Antibody Screen Negative 12/25/17 12/25/17 12/25/17 Range/Units 07:38 05:56 05:56 WBC 20.9 H (4.8-10.8) K/uL RBC 2.60 L (3.80-5.20) Mil/uL Hgb 7.4 L (11.0-16.0) g/dL Hct 25.7 L (34.0-47.0) % MCV 98.6 D (81.0-99.0) fL MCH 28.4 (27.0-31.0) pg MCHC 28.7 L (33.0-37.0) g/dL RDW 16.0 H (11.5-14.5) % Plt Count 180 (130-400) K/uL MPV 10.7 (7.2-11.7) fL Neut % (Auto) 89.5 H (50.0-75.0) % Lymph % (Auto) 4.2 L (20.0-40.0) % [place] % (Auto) 4.1 (0.0-10.0) % Eos % (Auto) 2.0 (0.0-4.0) % Baso % (Auto) 0.2 (0.0-2.0) % Neut # (Auto) 18.7 H (1.8-7.0) K/uL Lymph # (Auto) 0.9 L (1.0-4.3) K/uL [place] # (Auto) 0.9 H (0.0-0.8) K/uL Eos # (Auto) 0.4 (0.0-0.7) K/uL Baso # (Auto) 0.0 (0.0-0.2) K/uL Neutrophils % (Manual) 80 H (50-75) % Band Neutrophils % 4 H (0-2) % Lymphocytes % (Manual) 5 L (20-40) % Reactive Lymphs % 1 H (0-0) % Monocytes % (Manual) 6 (0-10) % Eosinophils % (Manual) 4 (0-4) % Toxic Granulation Present Platelet Estimate Normal (NORMAL) Hypochromasia (manual) Slight Poikilocytosis (manual Slight Anisocytosis (manual) Slight Microcytosis (manual) Slight Puncture Site pCO2 (35-45) mm/Hg pO2 (80-100) mm/Hg HCO3 (21-28) mmol/L ABG pH (7.35-7.45) ABG Total CO2 (22-28) mmol/L ABG O2 Saturation (95-98) % ABG Base Excess (-2.0-3.0) mmol/L ABG Hemoglobin (11.7-17.4) g/dL ABG Carboxyhemoglobin (0.5-1.5) % POC ABG HHb (Measured) (0.0-5.0) % ABG Methemoglobin (0.0-3.0) % Richard Test A-a O2 Difference mm/Hg Respiratory Index Hgb O2 Saturation (95.0-98.0) % Vent Mode Mechanical Rate FiO2 % Tidal Volume PEEP Sodium 141 134 (132-148) mmol/L Potassium 3.7 3.2 L (3.6-5.2) mmol/L Chloride 104 98 (98-107) mmol/L Carbon Dioxide 24 21 L (22-30) mmol/L Anion Gap 17 18 (10-20) BUN 73 H 59 H (7-17) mg/dL Creatinine 5.5 H 5.1 H (0.7-1.2) mg/dL Est GFR ( Amer) 9 10 Est GFR (Non-Af Amer) 7 8 POC Glucose (mg/dL) (65-110) mg/dL Random Glucose 133 H 1071 H* (65-105) mg/dL Calcium 7.1 L 6.7 L (8.6-10.4) mg/dl Phosphorus 3.6 (2.5-4.5) mg/dL Magnesium 2.1 (1.6-2.3) mg/dL Total Bilirubin 0.8 0.8 (0.2-1.3) mg/dL AST 41 H D 34 (14-36) U/L ALT 25 27 (9-52) U/L Alkaline Phosphatase 72 52 (38-126) U/L Total Protein 5.7 L 4.8 L (6.3-8.3) g/dL Albumin 2.8 L 2.7 L (3.5-5.0) g/dL Globulin 2.9 2.1 L (2.2-3.9) gm/dL Albumin/Globulin Ratio 1.0 1.3 (1.0-2.1) Stool Occult Blood (NEGATIVE) C. difficile Ag & Toxin (NEGATIVE) Blood Type Antibody Screen 12/25/17 12/25/17 12/24/17 Range/Units 05:42 05:30 23:45 WBC (4.8-10.8) K/uL RBC (3.80-5.20) Mil/uL Hgb (11.0-16.0) g/dL Hct (34.0-47.0) % MCV (81.0-99.0) fL MCH (27.0-31.0) pg MCHC (33.0-37.0) g/dL RDW (11.5-14.5) % Plt Count (130-400) K/uL MPV (7.2-11.7) fL Neut % (Auto) (50.0-75.0) % Lymph % (Auto) (20.0-40.0) % [place] % (Auto) (0.0-10.0) % Eos % (Auto) (0.0-4.0) % Baso % (Auto) (0.0-2.0) % Neut # (Auto) (1.8-7.0) K/uL Lymph # (Auto) (1.0-4.3) K/uL [place] # (Auto) (0.0-0.8) K/uL Eos # (Auto) (0.0-0.7) K/uL Baso # (Auto) (0.0-0.2) K/uL Neutrophils % (Manual) (50-75) % Band Neutrophils % (0-2) % Lymphocytes % (Manual) (20-40) % Reactive Lymphs % (0-0) % Monocytes % (Manual) (0-10) % Eosinophils % (Manual) (0-4) % Toxic Granulation Platelet Estimate (NORMAL) Hypochromasia (manual) Poikilocytosis (manual Anisocytosis (manual) Microcytosis (manual) Puncture Site Rr pCO2 34 L (35-45) mm/Hg pO2 96 (80-100) mm/Hg HCO3 24.4 (21-28) mmol/L ABG pH 7.44 (7.35-7.45) ABG Total CO2 24.1 (22-28) mmol/L ABG O2 Saturation 99.2 H (95-98) % ABG Base Excess -0.7 (-2.0-3.0) mmol/L ABG Hemoglobin 9.5 L (11.7-17.4) g/dL ABG Carboxyhemoglobin 1.8 H (0.5-1.5) % POC ABG HHb (Measured) 0.8 (0.0-5.0) % ABG Methemoglobin 1.1 (0.0-3.0) % Richard Test Pos A-a O2 Difference 147.0 mm/Hg Respiratory Index 1.5 Hgb O2 Saturation 96.3 (95.0-98.0) % Vent Mode Prvc Mechanical Rate 14 FiO2 40.0 % Tidal Volume 500 PEEP 5 Sodium (132-148) mmol/L Potassium (3.6-5.2) mmol/L Chloride (98-107) mmol/L Carbon Dioxide (22-30) mmol/L Anion Gap (10-20) BUN (7-17) mg/dL Creatinine (0.7-1.2) mg/dL Est GFR ( Amer) Est GFR (Non-Af Amer) POC Glucose (mg/dL) 140 H 170 H (65-110) mg/dL Random Glucose (65-105) mg/dL Calcium (8.6-10.4) mg/dl Phosphorus (2.5-4.5) mg/dL Magnesium (1.6-2.3) mg/dL Total Bilirubin (0.2-1.3) mg/dL AST (14-36) U/L ALT (9-52) U/L Alkaline Phosphatase (38-126) U/L Total Protein (6.3-8.3) g/dL Albumin (3.5-5.0) g/dL Globulin (2.2-3.9) gm/dL Albumin/Globulin Ratio (1.0-2.1) Stool Occult Blood (NEGATIVE) C. difficile Ag & Toxin (NEGATIVE) Blood Type Antibody Screen 12/24/17 12/24/17 Range/Units 17:28 16:10 WBC (4.8-10.8) K/uL RBC (3.80-5.20) Mil/uL Hgb (11.0-16.0) g/dL Hct (34.0-47.0) % MCV (81.0-99.0) fL MCH (27.0-31.0) pg MCHC (33.0-37.0) g/dL RDW (11.5-14.5) % Plt Count (130-400) K/uL MPV (7.2-11.7) fL Neut % (Auto) (50.0-75.0) % Lymph % (Auto) (20.0-40.0) % [place] % (Auto) (0.0-10.0) % Eos % (Auto) (0.0-4.0) % Baso % (Auto) (0.0-2.0) % Neut # (Auto) (1.8-7.0) K/uL Lymph # (Auto) (1.0-4.3) K/uL [place] # (Auto) (0.0-0.8) K/uL Eos # (Auto) (0.0-0.7) K/uL Baso # (Auto) (0.0-0.2) K/uL Neutrophils % (Manual) (50-75) % Band Neutrophils % (0-2) % Lymphocytes % (Manual) (20-40) % Reactive Lymphs % (0-0) % Monocytes % (Manual) (0-10) % Eosinophils % (Manual) (0-4) % Toxic Granulation Platelet Estimate (NORMAL) Hypochromasia (manual) Poikilocytosis (manual Anisocytosis (manual) Microcytosis (manual) Puncture Site pCO2 (35-45) mm/Hg pO2 (80-100) mm/Hg HCO3 (21-28) mmol/L ABG pH (7.35-7.45) ABG Total CO2 (22-28) mmol/L ABG O2 Saturation (95-98) % ABG Base Excess (-2.0-3.0) mmol/L ABG Hemoglobin (11.7-17.4) g/dL ABG Carboxyhemoglobin (0.5-1.5) % POC ABG HHb (Measured) (0.0-5.0) % ABG Methemoglobin (0.0-3.0) % Richard Test A-a O2 Difference mm/Hg Respiratory Index Hgb O2 Saturation (95.0-98.0) % Vent Mode Mechanical Rate FiO2 % Tidal Volume PEEP Sodium (132-148) mmol/L Potassium (3.6-5.2) mmol/L Chloride (98-107) mmol/L Carbon Dioxide (22-30) mmol/L Anion Gap (10-20) BUN (7-17) mg/dL Creatinine (0.7-1.2) mg/dL Est GFR ( Amer) Est GFR (Non-Af Amer) POC Glucose (mg/dL) 153 H (65-110) mg/dL Random Glucose (65-105) mg/dL Calcium (8.6-10.4) mg/dl Phosphorus (2.5-4.5) mg/dL Magnesium (1.6-2.3) mg/dL Total Bilirubin (0.2-1.3) mg/dL AST (14-36) U/L ALT (9-52) U/L Alkaline Phosphatase (38-126) U/L Total Protein (6.3-8.3) g/dL Albumin (3.5-5.0) g/dL Globulin (2.2-3.9) gm/dL Albumin/Globulin Ratio (1.0-2.1) Stool Occult Blood (NEGATIVE) C. difficile Ag & Toxin Negative (NEGATIVE) Blood Type Antibody Screen Laboratory Results - last 24 hr 12/24/17 12/24/17 12/24/17 16:10 17:28 23:45 WBC RBC Hgb Hct MCV MCH MCHC RDW Plt Count MPV Neut % (Auto) Lymph % (Auto) [place] % (Auto) Eos % (Auto) Baso % (Auto) Neut # (Auto) Lymph # (Auto) [place] # (Auto) Eos # (Auto) Baso # (Auto) Neutrophils % (Manual) Band Neutrophils % Lymphocytes % (Manual) Reactive Lymphs % Monocytes % (Manual) Eosinophils % (Manual) Toxic Granulation Platelet Estimate Hypochromasia (manual) Poikilocytosis (manual Anisocytosis (manual) Microcytosis (manual) Puncture Site pCO2 pO2 HCO3 ABG pH ABG Total CO2 ABG O2 Saturation ABG Base Excess ABG Hemoglobin ABG Carboxyhemoglobin POC ABG HHb (Measured) ABG Methemoglobin Richard Test A-a O2 Difference Respiratory Index Hgb O2 Saturation Vent Mode Mechanical Rate FiO2 Tidal Volume PEEP Sodium Potassium Chloride Carbon Dioxide Anion Gap BUN Creatinine Est GFR ( Amer) Est GFR (Non-Af Amer) POC Glucose (mg/dL) 153 H 170 H Random Glucose Calcium Phosphorus Magnesium Total Bilirubin AST ALT Alkaline Phosphatase Total Protein Albumin Globulin Albumin/Globulin Ratio Stool Occult Blood C. difficile Ag & Toxin Negative Blood Type Antibody Screen 12/25/17 12/25/17 12/25/17 05:30 05:42 05:56 WBC 20.9 H RBC 2.60 L Hgb 7.4 L Hct 25.7 L MCV 98.6 D MCH 28.4 MCHC 28.7 L RDW 16.0 H Plt Count 180 MPV 10.7 Neut % (Auto) 89.5 H Lymph % (Auto) 4.2 L [place] % (Auto) 4.1 Eos % (Auto) 2.0 Baso % (Auto) 0.2 Neut # (Auto) 18.7 H Lymph # (Auto) 0.9 L [place] # (Auto) 0.9 H Eos # (Auto) 0.4 Baso # (Auto) 0.0 Neutrophils % (Manual) 80 H Band Neutrophils % 4 H Lymphocytes % (Manual) 5 L Reactive Lymphs % 1 H Monocytes % (Manual) 6 Eosinophils % (Manual) 4 Toxic Granulation Present Platelet Estimate Normal Hypochromasia (manual) Slight Poikilocytosis (manual Slight Anisocytosis (manual) Slight Microcytosis (manual) Slight Puncture Site Rr pCO2 34 L pO2 96 HCO3 24.4 ABG pH 7.44 ABG Total CO2 24.1 ABG O2 Saturation 99.2 H ABG Base Excess -0.7 ABG Hemoglobin 9.5 L ABG Carboxyhemoglobin 1.8 H POC ABG HHb (Measured) 0.8 ABG Methemoglobin 1.1 Richard Test Pos A-a O2 Difference 147.0 Respiratory Index 1.5 Hgb O2 Saturation 96.3 Vent Mode Prvc Mechanical Rate 14 FiO2 40.0 Tidal Volume 500 PEEP 5 Sodium Potassium Chloride Carbon Dioxide Anion Gap BUN Creatinine Est GFR ( Amer) Est GFR (Non-Af Amer) POC Glucose (mg/dL) 140 H Random Glucose Calcium Phosphorus Magnesium Total Bilirubin AST ALT Alkaline Phosphatase Total Protein Albumin Globulin Albumin/Globulin Ratio Stool Occult Blood C. difficile Ag & Toxin Blood Type Antibody Screen 12/25/17 12/25/17 12/25/17 05:56 07:38 09:41 WBC RBC Hgb Hct MCV MCH MCHC RDW Plt Count MPV Neut % (Auto) Lymph % (Auto) [place] % (Auto) Eos % (Auto) Baso % (Auto) Neut # (Auto) Lymph # (Auto) [place] # (Auto) Eos # (Auto) Baso # (Auto) Neutrophils % (Manual) Band Neutrophils % Lymphocytes % (Manual) Reactive Lymphs % Monocytes % (Manual) Eosinophils % (Manual) Toxic Granulation Platelet Estimate Hypochromasia (manual) Poikilocytosis (manual Anisocytosis (manual) Microcytosis (manual) Puncture Site pCO2 pO2 HCO3 ABG pH ABG Total CO2 ABG O2 Saturation ABG Base Excess ABG Hemoglobin ABG Carboxyhemoglobin POC ABG HHb (Measured) ABG Methemoglobin Richard Test A-a O2 Difference Respiratory Index Hgb O2 Saturation Vent Mode Mechanical Rate FiO2 Tidal Volume PEEP Sodium 134 141 Potassium 3.2 L 3.7 Chloride 98 104 Carbon Dioxide 21 L 24 Anion Gap 18 17 BUN 59 H 73 H Creatinine 5.1 H 5.5 H Est GFR ( Amer) 10 9 Est GFR (Non-Af Amer) 8 7 POC Glucose (mg/dL) Random Glucose 1071 H* 133 H Calcium 6.7 L 7.1 L Phosphorus 3.6 Magnesium 2.1 Total Bilirubin 0.8 0.8 AST 34 41 H D ALT 27 25 Alkaline Phosphatase 52 72 Total Protein 4.8 L 5.7 L Albumin 2.7 L 2.8 L Globulin 2.1 L 2.9 Albumin/Globulin Ratio 1.3 1.0 Stool Occult Blood C. difficile Ag & Toxin Blood Type O POSITIVE Antibody Screen Negative 12/25/17 12/25/17 11:06 14:30 WBC RBC Hgb Hct MCV MCH MCHC RDW Plt Count MPV Neut % (Auto) Lymph % (Auto) [place] % (Auto) Eos % (Auto) Baso % (Auto) Neut # (Auto) Lymph # (Auto) [place] # (Auto) Eos # (Auto) Baso # (Auto) Neutrophils % (Manual) Band Neutrophils % Lymphocytes % (Manual) Reactive Lymphs % Monocytes % (Manual) Eosinophils % (Manual) Toxic Granulation Platelet Estimate Hypochromasia (manual) Poikilocytosis (manual Anisocytosis (manual) Microcytosis (manual) Puncture Site pCO2 pO2 HCO3 ABG pH ABG Total CO2 ABG O2 Saturation ABG Base Excess ABG Hemoglobin ABG Carboxyhemoglobin POC ABG HHb (Measured) ABG Methemoglobin Richard Test A-a O2 Difference Respiratory Index Hgb O2 Saturation Vent Mode Mechanical Rate FiO2 Tidal Volume PEEP Sodium Potassium Chloride Carbon Dioxide Anion Gap BUN Creatinine Est GFR ( Amer) Est GFR (Non-Af Amer) POC Glucose (mg/dL) 162 H Random Glucose Calcium Phosphorus Magnesium Total Bilirubin AST ALT Alkaline Phosphatase Total Protein Albumin Globulin Albumin/Globulin Ratio Stool Occult Blood Negative C. difficile Ag & Toxin Blood Type Antibody Screen Critical Care Progress Note - Nutrition Nutrition: Nutrition Category Date Time Status NPO Diet [DIET] Diets 12/20/17 Dinner Active Attending/Attestation - Attestation I have personally seen and examined this patient.: Yes I have fully participated in the care of the patient.: Yes I have reviewed all pertinent clinical information: Yes Notes (Text): 12/25/17 17:12 Patient seen and examined in the intensive care unit. Status post permacath placement today Transfuse 1 unit packed RBCs during hemodialysis CPAP trial after hemodialysis Cellulitis of abdominal wall at KORI insertion site/ Seen by surgery Continue IV antibiotics Follow-up culture and sensitivity
[2017-12-25] MEDS: Linezolid 600 mg in D5W 300 ml 600 MG/300 ML BAG IVPB SCH ×2 (11:30→21:15)
--- NOTE | 2017-12-25 13:49 | RAD ---
HISTORY: readjusted ET COMPARISON: 12/25/2017 at 9:52 a.m. FINDINGS: LUNGS: Linear opacity extending from left hilum to left apex. Likely atelectasis. No infiltrate. Vaguely nodular opacity at left base likely corresponds to bandlike atelectasis at left base seen on recent chest CT examination of 12/20/2017. PLEURA: No significant pleural effusion identified, no pneumothorax apparent. CARDIOVASCULAR: ET tube positioned with its tip 3.9 cm above the tracheal kathy. Right tunneled central venous dialysis catheter. OSSEOUS STRUCTURES: No significant abnormalities. VISUALIZED UPPER ABDOMEN: Normal. OTHER FINDINGS: None. IMPRESSION: ET tube repositioned 3.9 cm above the tracheal kathy.
[2017-12-25] MEDS: EPOETIN ALFA 4,000 UNIT/ML ML Dialysis IV SCH (14:39)
[2017-12-25] MEDS: HYDROmorphone 0.5 mg/0.5 ml ISec IVP PRN (15:41)
[2017-12-25] MEDS ORDERED: Lidocaine 1% Inj (20ml) IV ONE (16:30)
--- NOTE | 2017-12-25 16:37 | CP.PCM.PN ---
Subjective - Date & Time of Evaluation Date of Evaluation: 12/25/17 Time of Evaluation: 16:00 - Subjective Subjective: Seen and examined, Patient is getting dialysis at bedside. opening her eyes. On Vent. s/p fever spikes. Noted cellulitis around right abdominal drain site. Objective - Vital Signs/Intake and Output Vital Signs (last 24 hours): Temp Pulse Resp BP Pulse Ox 98.9 F 100 H 28 H 105/51 L 100 12/25/17 16:21 12/25/17 16:21 12/25/17 16:21 12/25/17 16:21 12/25/17 15:21 Intake and Output: 12/25/17 12/25/17 06:59 18:59 Intake Total 904 1119 Output Total 580 445 Balance 324 674 - Medications Medications: Current Medications Acetaminophen (Tylenol 325mg Tab) 650 mg PO Q6 PRN PRN Reason: Fever >100.4 F Last Admin: 12/25/17 14:43 Dose: 650 mg Albuterol/Ipratropium (Duoneb 3 Mg/0.5 Mg (3 Ml) Ud) 3 ml INH RQ4 PRN PRN Reason: Shortness of Breath Last Admin: 12/24/17 08:04 Dose: 3 ml Dextrose (Dextrose 50% Inj) 0 ml IV STAT PRN; Protocol PRN Reason: Hypoglycemia Protocol Dextrose (Glutose 15) 15 gm PO ONCE PRN; Protocol PRN Reason: Hypoglycemia Protocol Epoetin Juan F (Procrit) 8,000 unit IV MWF [facility] Stop: 12/30/17 09:01 Last Admin: 12/25/17 14:39 Dose: 8,000 unit Glucagon (Glucagen Diagnostic Kit) 1 mg IM STAT PRN; Protocol PRN Reason: Hypoglycemia Protocol Heparin Sodium (Porcine) (Heparin) 5,000 units SC Q8 [facility] Last Admin: 12/25/17 13:04 Dose: 5,000 units Hydromorphone HCl (Dilaudid) 0.5 mg IVP Q4H PRN PRN Reason: Pain, severe (8-10) Last Admin: 12/25/17 15:41 Dose: 0.5 mg Dextrose (Dextrose 5% In Water 1000 Ml) 1,000 mls @ 0 mls/hr IV .Q0M PRN; Protocol; Per Protocol PRN Reason: Hypoglycemia Protocol Meropenem 500 mg/ Sodium (Chloride) 100 mls @ 100 mls/hr IVPB Q12 [facility] PRN Reason: Protocol Last Admin: 12/25/17 10:16 Dose: 100 mls/hr Micafungin Sodium 100 mg/ (Sodium Chloride) 100 mls @ 100 mls/hr IV Q24H [facility] PRN Reason: Protocol Last Admin: 12/25/17 10:07 Dose: 100 mls/hr Linezolid (Zyvox 600mg/300ml D5w) 600 mg in 300 mls @ 200 mls/hr IVPB Q12 [facility] PRN Reason: Protocol Last Admin: 12/25/17 11:30 Dose: 200 mls/hr BUPIVACAINE 0.125%/0.9% NACL (Bupivacaine-Ns 0.125% On-Q Insulation Foreman) 600 mls @ 4 mls/ hr IJ ONCE ONE Stop: 12/27/17 15:59 Last Admin: 12/21/17 10:08 Dose: 4 mls/hr Sodium Chloride 35 meq/Magnesium Sulfate 3 meq/Calcium Gluconate 4.5 meq/ Multivitamins/Vitamin C 10 ml/Heparin Sodium (Porcine) 1, 000 units/ Amino Acids 1,030.1663 mls @ 42 mls/hr IV .Q24H [facility] Stop: 12/25/17 17:59 Last Admin: 12/24/17 17:39 Dose: 42 mls/hr Sodium Chloride 35 meq/Magnesium Sulfate 3 meq/Calcium Gluconate 4.5 meq/ Multivitamins/Vitamin C 10 ml/Heparin Sodium (Porcine) 1, 000 units/ Amino Acids 1,030.1663 mls @ 42 mls/hr IV .Q24H ONE Stop: 12/26/17 17:59 Insulin Human Regular (Novolin R) 0 unit SC Q6 [facility] PRN Reason: Protocol Last Admin: 12/25/17 12:59 Dose: 1 unit Pantoprazole Sodium (Protonix Inj) 40 mg IVP Q12H [facility] Last Admin: 12/25/17 10:17 Dose: 40 mg Saccharomyces Boulardii (Florastor) 250 mg PO Q12 [facility] Last Admin: 12/25/17 10:38 Dose: 250 mg - Labs Labs: 12/25/17 05:56 12/25/17 07:38 PT 14.0 SECONDS (9.7-12.2) H 12/24/17 08:54 INR 1.3 12/24/17 08:54 APTT 40 SECONDS (21-34) H 12/18/17 12:39 - Constitutional Appears: Chronically Ill - Head Exam Head Exam: ATRAUMATIC - Eye Exam Eye Exam: Normal appearance - Neck Exam Neck Exam: Full ROM - Respiratory Exam Respiratory Exam: Clear to Ausculation Bilateral, NORMAL BREATHING PATTERN - Cardiovascular Exam Cardiovascular Exam: REGULAR RHYTHM - GI/Abdominal Exam GI & Abdominal Exam: Distended (two drain in place.Noted with cellulitis/ inflammation around it), Soft. absent: Rigid - Extremities Exam Extremities Exam: Full ROM, Normal Capillary Refill, Normal Inspection - Back Exam Back Exam: NORMAL INSPECTION - Neurological Exam Neurological Exam: Awake. 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 she also had HTN crisis which was treated with cardene drip. Patient was admitted to ICU due to SBP 220/140s initially on cardene drip. Returned to OR on 12/18/17 due to increasing free air noted on repeat CT scan and underwent s/p ex lap primary repair of duodenal perforation, jourdan patch. Omentectomy. Patient developed acute renal failure /ATN likely due to Right shiley catheter placed - 12/20 - removed 12/24. Dialysis 12/20 and 12/21. Permacath placed 12/25. Dialysis 12/25 and 1 unit PRBC transfused. She had fever spikes 12/24/2017 Plan: 1.s/p acute abdomen with duodenal perforation Patient had endoscopic resection of duodenal carcinoid tumor on 12/16/2017 Ct reported intraperitoneal air and patient underwent Exploratory lap and repair of perforation on 12/19. Patient is on antibiotics as per Dr Quinonez.continue Meropenem,Micafungin and Linezolid s/p fever spikes,cultures negative,chest x ray no acute infiltrate KORI drain site cellulitis noted and evaluated by surgery continue antibiotics and follow repeat blood cultures drawn on 12/24 we will follow with surgery team 2. Duodenal carcinoid tumor s/p resection 3. Acute renal failure/Oliguric/ATN started on dialysis on 12/20 Right shiley catheter placed - 12/20 - removed 12/24. Dialysis 12/20 and 12/21. Permacath placed 12/25. Dialysis 12/25 we will follow with wire brush operator medication dose adjustment with Renal function and avoid nephrotoxic meds. 4. Hypertension s/p elevated BP , admitted to ICU due to SBP 220/140s initially on cardene drip. Now her BP is low 5.Fever-She had fever spikes 101 F on 12/24/2017 Todays Temp max 100.5F WBC 20, Bands 4 6.Reparatory failure Weaning as per ICU team 7.Anemia-Getting transfusion today stool OB negative 1 unit PRBC transfused. Continue epogen 8.DVT prophylaxis is on heparin SQ and GI prophylaxis is on protonix
[2017-12-25] MEDS ORDERED: Lidocaine 1% PF (5ml) Amp INJ ONE (17:00)
--- NOTE | 2017-12-25 17:33 | PCM.SURG1 ---
Surgeon's Initial Post Op Note - Surgeon's Notes Surgeon: MD Celi Timber Buyer: CHRISTEN [email or web address] Pre-Operative Diagnosis: Abdominal wall cellulitis/abscess Operative Findings: Pus collection Post-Operative Diagnosis: Abdominal wall abscess Operation Performed: Incision and drainage of abdominal wall abscess Specimen/Specimens Removed: pus Estimated Blood Loss: EBL {In ML}: 2 Date of Surgery/Procedure: 12/25/17 Time of Surgery/Procedure: 16:00
--- NOTE | 2017-12-25 17:35 | CP.PCM.PN ---
Subjective - Date & Time of Evaluation Date of Evaluation: 12/25/17 Time of Evaluation: 16:00 - Subjective Subjective: PRE-OP DIAGNOSIS: Abdominal wall abscess POST-OP DIAGNOSIS: Same PROCEDURE: incision and drainage of abscess Performing Physician: RICHARDSON Fitzpatrick PROCEDURE: A timeout protocol was performed prior to initiating the procedure. The area was prepared and draped in the usual, sterile manner. The site was anesthetized with 1% lidocaine. A linear incision along the local skin lines was made and the purulent material expressed. The abcess was explored thoroughly and sequestered pockets were opened. Bleeding was minimal. Culture was taken. Site was dressed with 4by4 and tape Packin/2 Iodoform packing Followup: The patient tolerated the procedure well without complications. Standard post-procedure care is explained and return precautions are given. RICHARDSON Buck Objective - Vital Signs/Intake and Output Vital Signs (last 24 hours): Temp Pulse Resp BP Pulse Ox 98.9 F 98 H 31 H 107/46 L 99 12/25/17 16:21 12/25/17 17:05 12/25/17 17:05 12/25/17 17:05 12/25/17 17:05 Intake and Output: 12/25/17 12/25/17 06:59 18:59 Intake Total 904 1119 Output Total 580 445 Balance 324 674 - Medications Medications: Current Medications Acetaminophen (Tylenol 325mg Tab) 650 mg PO Q6 PRN PRN Reason: Fever >100.4 F Last Admin: 12/25/17 14:43 Dose: 650 mg Albuterol/Ipratropium (Duoneb 3 Mg/0.5 Mg (3 Ml) Ud) 3 ml INH RQ4 PRN PRN Reason: Shortness of Breath Last Admin: 12/24/17 08:04 Dose: 3 ml Dextrose (Dextrose 50% Inj) 0 ml IV STAT PRN; Protocol PRN Reason: Hypoglycemia Protocol Dextrose (Glutose 15) 15 gm PO ONCE PRN; Protocol PRN Reason: Hypoglycemia Protocol Epoetin Juan F (Procrit) 8,000 unit IV MWF [facility] [place] Stop: 12/30/17 09:01 Last Admin: 12/25/17 14:39 Dose: 8,000 unit Glucagon (Glucagen Diagnostic Kit) 1 mg IM STAT PRN; Protocol PRN Reason: Hypoglycemia Protocol Heparin Sodium (Porcine) (Heparin) 5,000 units SC Q8 [facility] Last Admin: 12/25/17 13:04 Dose: 5,000 units Heparin Sodium (Porcine) (Heparin) 3,700 units IVP MWF [facility] [place] Last Admin: 12/25/17 16:58 Dose: 3,700 units Hydromorphone HCl (Dilaudid) 0.5 mg IVP Q4H PRN PRN Reason: Pain, severe (8-10) Last Admin: 12/25/17 15:41 Dose: 0.5 mg Dextrose (Dextrose 5% In Water 1000 Ml) 1,000 mls @ 0 mls/hr IV .Q0M PRN; Protocol; Per Protocol PRN Reason: Hypoglycemia Protocol Meropenem 500 mg/ Sodium (Chloride) 100 mls @ 100 mls/hr IVPB Q12 [facility] PRN Reason: Protocol Last Admin: 12/25/17 10:16 Dose: 100 mls/hr Micafungin Sodium 100 mg/ (Sodium Chloride) 100 mls @ 100 mls/hr IV Q24H [facility] [place] PRN Reason: Protocol Last Admin: 12/25/17 10:07 Dose: 100 mls/hr Linezolid (Zyvox 600mg/300ml D5w) 600 mg in 300 mls @ 200 mls/hr IVPB Q12 [facility] [place] PRN Reason: Protocol Last Admin: 12/25/17 11:30 Dose: 200 mls/hr BUPIVACAINE 0.125%/0.9% NACL (Bupivacaine-Ns 0.125% On-Q Loader Operator/Ground Leader) 600 mls @ 4 mls/ hr IJ ONCE ONE Stop: 12/27/17 15:59 Last Admin: 12/21/17 10:08 Dose: 4 mls/hr Sodium Chloride 35 meq/Magnesium Sulfate 3 meq/Calcium Gluconate 4.5 meq/ Multivitamins/Vitamin C 10 ml/Heparin Sodium (Porcine) 1, 000 units/ Amino Acids 1,030.1663 mls @ 42 mls/hr IV .Q24H [facility] [place] Stop: 12/25/17 17:59 Last Admin: 12/24/17 17:39 Dose: 42 mls/hr Sodium Chloride 35 meq/Magnesium Sulfate 3 meq/Calcium Gluconate 4.5 meq/ Multivitamins/Vitamin C 10 ml/Heparin Sodium (Porcine) 1, 000 units/ Amino Acids 1,030.1663 mls @ 42 mls/hr IV .Q24H ONE Stop: 12/26/17 17:59 Insulin Human Regular (Novolin R) 0 unit SC Q6 [facility] PRN Reason: Protocol Last Admin: 12/25/17 12:59 Dose: 1 unit Pantoprazole Sodium (Protonix Inj) 40 mg IVP Q12H [facility] [place] Last Admin: 12/25/17 10:17 Dose: 40 mg Saccharomyces Boulardii (Florastor) 250 mg PO Q12 [facility] [place] Last Admin: 12/25/17 10:38 Dose: 250 mg - Labs Labs: 12/25/17 05:56 12/25/17 07:38 PT 14.0 SECONDS (9.7-12.2) H 12/24/17 08:54 INR 1.3 12/24/17 08:54 APTT 40 SECONDS (21-34) H 12/18/17 12:39
[2017-12-25] MEDS ORDERED: TPN #3 IV ONE (18:00)
--- NOTE | 2017-12-25 18:09 | CP.PCM.PN ---
Subjective - Date & Time of Evaluation Date of Evaluation: 12/25/17 Time of Evaluation: 08:00 - Subjective Subjective: events noted surgical followup noted Objective - Vital Signs/Intake and Output Vital Signs (last 24 hours): Temp Pulse Resp BP Pulse Ox 98.6 F 96 H 31 H 89/35 L 100 12/25/17 17:20 12/25/17 17:20 12/25/17 17:20 12/25/17 17:20 12/25/17 17:20 Intake and Output: 12/25/17 12/25/17 06:59 18:59 Intake Total 904 1119 Output Total 580 445 Balance 324 674 - Medications Medications: Current Medications Acetaminophen (Tylenol 325mg Tab) 650 mg PO Q6 PRN PRN Reason: Fever >100.4 F Last Admin: 12/25/17 14:43 Dose: 650 mg Albuterol/Ipratropium (Duoneb 3 Mg/0.5 Mg (3 Ml) Ud) 3 ml INH RQ4 PRN PRN Reason: Shortness of Breath Last Admin: 12/24/17 08:04 Dose: 3 ml Dextrose (Dextrose 50% Inj) 0 ml IV STAT PRN; Protocol PRN Reason: Hypoglycemia Protocol Dextrose (Glutose 15) 15 gm PO ONCE PRN; Protocol PRN Reason: Hypoglycemia Protocol Epoetin Juan F (Procrit) 8,000 unit IV [facility] [place]: 12/30/17 09:01 Last Admin: 12/25/17 14:39 Dose: 8,000 unit Glucagon (Glucagen Diagnostic Kit) 1 mg IM STAT PRN; Protocol PRN Reason: Hypoglycemia Protocol Heparin Sodium (Porcine) (Heparin) 5,000 units SC Q8 [facility] Last Admin: 12/25/17 13:04 Dose: 5,000 units Heparin Sodium (Porcine) (Heparin) 3,700 units IVP [facility] [place] Last Admin: 12/25/17 16:58 Dose: 3,700 units Hydromorphone HCl (Dilaudid) 0.5 mg IVP Q4H PRN PRN Reason: Pain, severe (8-10) Last Admin: 12/25/17 15:41 Dose: 0.5 mg Dextrose (Dextrose 5% In Water 1000 Ml) 1,000 mls @ 0 mls/hr IV .Q0M PRN; Protocol; Per Protocol PRN Reason: Hypoglycemia Protocol Meropenem 500 mg/ Sodium (Chloride) 100 mls @ 100 mls/hr IVPB Q12 [facility] PRN Reason: Protocol Last Admin: 12/25/17 10:16 Dose: 100 mls/hr Micafungin Sodium 100 mg/ (Sodium Chloride) 100 mls @ 100 mls/hr IV Q24H [facility] PRN Reason: Protocol Last Admin: 12/25/17 10:07 Dose: 100 mls/hr Linezolid (Zyvox 600mg/300ml D5w) 600 mg in 300 mls @ 200 mls/hr IVPB Q12 [facility] PRN Reason: Protocol Last Admin: 12/25/17 11:30 Dose: 200 mls/hr BUPIVACAINE 0.125%/0.9% NACL (Bupivacaine-Ns 0.125% On-Q Mattress Filling Machine Tender) 600 mls @ 4 mls/ hr IJ ONCE ONE Stop: 12/27/17 15:59 Last Admin: 12/21/17 10:08 Dose: 4 mls/hr Sodium Chloride 35 meq/Magnesium Sulfate 3 meq/Calcium Gluconate 4.5 meq/ Multivitamins/Vitamin C 10 ml/Heparin Sodium (Porcine) 1, 000 units/ Amino Acids 1,030.1663 mls @ 42 mls/hr IV .Q24H ONE Stop: 12/26/17 17:59 Last Admin: 12/25/17 17:47 Dose: 42 mls/hr Insulin Human Regular (Novolin R) 0 unit SC Q6 [facility] PRN Reason: Protocol Last Admin: 12/25/17 12:59 Dose: 1 unit Pantoprazole Sodium (Protonix Inj) 40 mg IVP Q12H [facility] Last Admin: 12/25/17 10:17 Dose: 40 mg Saccharomyces Boulardii (Florastor) 250 mg PO Q12 [facility] Last Admin: 12/25/17 10:38 Dose: 250 mg - Labs Labs: 12/25/17 05:56 12/25/17 07:38 PT 14.0 SECONDS (9.7-12.2) H 12/24/17 08:54 INR 1.3 12/24/17 08:54 APTT 40 SECONDS (21-34) H 12/18/17 12:39 - Constitutional Appears: Confused, Chronically Ill - Head Exam Head Exam: NORMOCEPHALIC - Eye Exam Eye Exam: absent: Scleral icterus - ENT Exam ENT Exam: Mucous Membranes Dry - Neck Exam Neck Exam: absent: Lymphadenopathy - Respiratory Exam Respiratory Exam: Decreased Breath Sounds - Cardiovascular Exam Cardiovascular Exam: REGULAR RHYTHM - GI/Abdominal Exam GI & Abdominal Exam: Distended - Rectal Exam Rectal Exam: Deferred Assessment and Plan (1) Peritonitis Status: Acute (2) Sepsis Status: Acute (3) Sepsis Status: Acute (4) Renal failure (ARF), acute on chronic Status: Acute (5) Renal failure (ARF), acute on chronic Status: Acute - Assessment and Plan (Free Text) Assessment: cont iv antibiotics consider de-escalation after 7 days to monotherapy
[2017-12-26] MEDS: HYDROmorphone 0.5 mg/0.5 ml ISec IVP PRN (02:00)
[2017-12-26 04:58] LABS: ABG ALLEN TEST POS; ARTERIAL BLOOD GAS HEMOGLOBIN 10.4 g/dL (11.7-17.4); ARTERIAL BLOOD GAS O2 SAT 98.2 % (95-98); ARTERIAL BLOOD GAS PCO2 34 mm/Hg (35-45); ARTERIAL BLOOD GAS PH 7.49 (7.35-7.45); ARTERIAL BLOOD GAS PO2 76 mm/Hg (80-100); ARTERIAL BLOOD GAS TCO2 26.9 mmol/L (22-28)
[2017-12-26 06:29] LABS: BASO # 0.1 K/uL (0.0-0.2); BASO % 0.4 % (0.0-2.0); EOS # 0.3 K/uL (0.0-0.7); EOS % 1.5 % (0.0-4.0); HEMOGLOBIN 8.6 g/dL (11.0-16.0); LYMPH # 1.2 K/uL (1.0-4.3); MEAN CELL VOLUME 84.7 fL (81.0-99.0); MEAN CORPUSCULAR HEMOGLOBIN 28.4 pg (27.0-31.0); MEAN CORPUSCULAR HGB CONC 33.5 g/dL (33.0-37.0); MEAN PLATELET VOLUME 10.8 fL (7.2-11.7); MONO # 1.3 K/uL (0.0-0.8); MONO % 6.5 % (0.0-10.0); NEUT # 16.8 K/uL (1.8-7.0); NEUT % 85.6 % (50.0-75.0); PLATELET COUNT 183 K/uL (130-400); RBC 3.03 Mil/uL (3.80-5.20); RED CELL DISTRIBUTION WIDTH 14.7 % (11.5-14.5); WHITE BLOOD COUNT 19.7 K/uL (4.8-10.8)
--- NOTE | 2017-12-26 06:40 | OP ---
PROCEDURE DATE: 12/25/2017 PREOPERATIVE DIAGNOSIS: Renal failure. POSTOPERATIVE DIAGNOSIS: Renal failure. PROCEDURE CARRIED OUT: Placement of Perma-Cath, right jugular vein with C-arm fluoroscopy, ultrasound-guided puncture, and micropuncture technique. SURGEON: Tripp Chavez Jr., MD PARTS FINISHER: None. ANESTHESIOLOGIST: mauricio Gabriel with sedation. FINDINGS: The patient is a 77-year-old woman who had a duodenal injury, subsequently developed renal failure, previously had a femoral catheter, now Perma-Cath will be inserted. OPERATIVE FINDINGS: Perma-Cath is inserted uneventfully via the jugular vein. DESCRIPTION OF PROCEDURE: The patient was given general anesthesia. She was already on a ventilator. With micropuncture technique, the right jugular vein was punctured under ultrasound guidance. Wire was inserted centrally, exchanged to an 0.035 guidewire and then the sheath dilator passed over this. It was flushed with heparinized saline with good return. It was in good position anatomically. Catheter originated on the right chest wall, went through the jugular vein and terminated in the superior vena cava. There was excellent flow. It was secured to the skin and tunneled. OPERATION CARRIED OUT: Perma-Cath, right jugular vein with C-arm fluoroscopy, ultrasound-guided puncture, and micropuncture technique. Ultrasound image of the neck showed the vein was 19 mm in diameter with normal compressibility and no intraluminal thrombosis. Tripp Chavez Jr., MD
[2017-12-26 06:46] LABS: ALBUMIN 2.8 g/dL (3.5-5.0)
[2017-12-26] MEDS: (Novolin R) Insulin Human Regular 100 units/ml vial SC SCH ×4 (07:00→17:46)
--- NOTE | 2017-12-26 07:18 | CP.PCM.PN ---
<Benita Hurst - Last Filed: 12/26/17 08:01> Subjective - Date & Time of Evaluation Date of Evaluation: 12/26/17 Time of Evaluation: 06:45 - Subjective Subjective: GI Fellow PGY4 Progress Note Pt seen and evaluated at bedside, pt intubated s/p repair of perforation. Pt hemodynamically stable, with no pressor support. Pt with fever last night and elevated WBC on multiple abx and antifungal therapy. Pt is s/p permacath RIJ, tolerating HD. ROS:A 12pt ROS was unable to be obtained due to AMS Objective - Vital Signs/Intake and Output Vital Signs (last 24 hours): Temp Pulse Resp BP Pulse Ox 100.6 F H 100 H 25 H 109/55 L 100 12/26/17 06:33 12/26/17 06:44 12/26/17 06:44 12/26/17 06:44 12/26/17 06:44 Intake and Output: 12/26/17 12/26/17 06:59 18:59 Intake Total 904 Output Total 930 Balance -26 - Medications Medications: Current Medications Acetaminophen (Tylenol 325mg Tab) 650 mg PO Q6 PRN PRN Reason: Fever >100.4 F Last Admin: 12/26/17 06:33 Dose: 650 mg Albuterol/Ipratropium (Duoneb 3 Mg/0.5 Mg (3 Ml) Ud) 3 ml INH RQ4 PRN PRN Reason: Shortness of Breath Last Admin: 12/24/17 08:04 Dose: 3 ml Dextrose (Dextrose 50% Inj) 0 ml IV STAT PRN; Protocol PRN Reason: Hypoglycemia Protocol Dextrose (Glutose 15) 15 gm PO ONCE PRN; Protocol PRN Reason: Hypoglycemia Protocol Epoetin Juan F (Procrit) 8,000 unit IV MWF [facility] Stop: 12/30/17 09:01 Last Admin: 12/25/17 14:39 Dose: 8,000 unit Glucagon (Glucagen Diagnostic Kit) 1 mg IM STAT PRN; Protocol PRN Reason: Hypoglycemia Protocol Heparin Sodium (Porcine) (Heparin) 5,000 units SC Q8 [facility] Last Admin: 12/26/17 07:00 Dose: 5,000 units Heparin Sodium (Porcine) (Heparin) 3,700 units IVP F [facility] Last Admin: 12/25/17 16:58 Dose: 3,700 units Hydromorphone HCl (Dilaudid) 0.5 mg IVP Q4H PRN PRN Reason: Pain, severe (8-10) Last Admin: 12/26/17 02:00 Dose: 0.5 mg Dextrose (Dextrose 5% In Water 1000 Ml) 1,000 mls @ 0 mls/hr IV .Q0M PRN; Protocol; Per Protocol PRN Reason: Hypoglycemia Protocol Meropenem 500 mg/ Sodium (Chloride) 100 mls @ 100 mls/hr IVPB Q12 [facility] PRN Reason: Protocol Last Admin: 12/25/17 21:15 Dose: 100 mls/hr Micafungin Sodium 100 mg/ (Sodium Chloride) 100 mls @ 100 mls/hr IV Q24H [facility] PRN Reason: Protocol Last Admin: 12/25/17 10:07 Dose: 100 mls/hr Linezolid (Zyvox 600mg/300ml D5w) 600 mg in 300 mls @ 200 mls/hr IVPB Q12 [facility] PRN Reason: Protocol Last Admin: 12/25/17 21:15 Dose: 200 mls/hr BUPIVACAINE 0.125%/0.9% NACL (Bupivacaine-Ns 0.125% On-Q Account Service Representative) 600 mls @ 4 mls/ hr IJ ONCE ONE Stop: 12/27/17 15:59 Last Admin: 12/21/17 10:08 Dose: 4 mls/hr Sodium Chloride 35 meq/Magnesium Sulfate 3 meq/Calcium Gluconate 4.5 meq/ Multivitamins/Vitamin C 10 ml/Heparin Sodium (Porcine) 1, 000 units/ Amino Acids 1,030.1663 mls @ 42 mls/hr IV .Q24H ONE Stop: 12/26/17 17:59 Last Admin: 12/25/17 17:47 Dose: 42 mls/hr Insulin Human Regular (Novolin R) 0 unit SC Q6 [facility] PRN Reason: Protocol Last Admin: 12/26/17 07:00 Dose: Not Given Lorazepam (Ativan) 2 mg IVP Q6H PRN PRN Reason: Anxiety Last Admin: 12/26/17 05:40 Dose: 2 mg Pantoprazole Sodium (Protonix Inj) 40 mg IVP Q12H [facility] Last Admin: 12/25/17 21:13 Dose: 40 mg Saccharomyces Boulardii (Florastor) 250 mg PO Q12 [facility] Last Admin: 12/25/17 21:13 Dose: 250 mg - Labs Labs: 12/26/17 06:21 12/26/17 06:14 PT 14.0 SECONDS (9.7-12.2) H 12/24/17 08:54 INR 1.3 12/24/17 08:54 APTT 40 SECONDS (21-34) H 12/18/17 12:39 Assessment and Plan - Assessment and Plan (Free Text) Assessment: This is a 77 year old female with past medical history of hypertension, COPD, breast cancer s/p lumpectomy that presented to same day 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 Pt is s/p EGD/EUS with EMR complicated by bleeding and perforation s/p clip placement x 7, epi injection, and bipolar cautery. 1. Duodenal perforation s/p surgical repair 2. 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 ARF, ATN on HD 4. Sepsis 5. VDRF 6. Abdominal cellulites, abscess 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 and perforation that was treated with a combination of clipping, electrocautery and epinephrine - Duodenal perforation with no closure seen on repeat CT and UpperGI series, pt taken to OR with repair of perforation with jourdan patch - Anemia, s/p1U PRBC, H/H stable, monitor H/H, no active GI bleeding - Protonix BID - IV abx meropenema, linezolid and micfungin by ID - Pt clinically hemodynamically stable, no pressor - ARF likely ATN, s/p initiation of HD 12/20/17, monitor renal function - s/p RIJ permacath - Pt on TPN by ICU team would prefer enteral feedings, espically in setting of fever and elevated WBC - Pancultures - Surgery plans for gastrografin study - Abdominal wall abscess/cellulites s/p I&D - Pt may benefit from repeat abdominal imaging with persistent fever, WBC, and purulent output via KORI drain - Appreciate surgical consult - Will continue to follow pt closely <Andrew Flynn - Last Filed: 12/26/17 09:39> Objective - Vital Signs/Intake and Output Vital Signs (last 24 hours): Temp Pulse Resp BP Pulse Ox 100.9 F H 97 H 24 124/46 L 100 12/26/17 08:00 12/26/17 08:00 12/26/17 08:00 12/26/17 08:00 12/26/17 08:00 Intake and Output: 12/26/17 12/26/17 06:59 18:59 Intake Total 904 184 Output Total 930 Balance -26 184 - Medications Medications: Current Medications Acetaminophen (Tylenol 325mg Tab) 650 mg PO Q6 PRN PRN Reason: Fever >100.4 F Last Admin: 12/26/17 06:33 Dose: 650 mg Albuterol/Ipratropium (Duoneb 3 Mg/0.5 Mg (3 Ml) Ud) 3 ml INH RQ4 PRN PRN Reason: Shortness of Breath Last Admin: 12/26/17 08:22 Dose: 3 ml Dextrose (Dextrose 50% Inj) 0 ml IV STAT PRN; Protocol PRN Reason: Hypoglycemia Protocol Dextrose (Glutose 15) 15 gm PO ONCE PRN; Protocol PRN Reason: Hypoglycemia Protocol Epoetin Juan F (Procrit) 8,000 unit IV [facility] Stop: 12/30/17 09:01 Last Admin: 12/25/17 14:39 Dose: 8,000 unit Glucagon (Glucagen Diagnostic Kit) 1 mg IM STAT PRN; Protocol PRN Reason: Hypoglycemia Protocol Heparin Sodium (Porcine) (Heparin) 5,000 units SC Q8 [facility] Last Admin: 12/26/17 07:00 Dose: 5,000 units Heparin Sodium (Porcine) (Heparin) 3,700 units IVP [facility] Last Admin: 12/25/17 16:58 Dose: 3,700 units Hydromorphone HCl (Dilaudid) 0.5 mg IVP Q4H PRN PRN Reason: Pain, severe (8-10) Last Admin: 12/26/17 02:00 Dose: 0.5 mg Dextrose (Dextrose 5% In Water 1000 Ml) 1,000 mls @ 0 mls/hr IV .Q0M PRN; Protocol; Per Protocol PRN Reason: Hypoglycemia Protocol Meropenem 500 mg/ Sodium (Chloride) 100 mls @ 100 mls/hr IVPB Q12 [facility] PRN Reason: Protocol Last Admin: 12/26/17 09:20 Dose: 100 mls/hr Micafungin Sodium 100 mg/ (Sodium Chloride) 100 mls @ 100 mls/hr IV Q24H [facility] PRN Reason: Protocol Last Admin: 12/26/17 09:21 Dose: 100 mls/hr Linezolid (Zyvox 600mg/300ml D5w) 600 mg in 300 mls @ 200 mls/hr IVPB Q12 [facility] PRN Reason: Protocol Last Admin: 12/26/17 09:21 Dose: 200 mls/hr BUPIVACAINE 0.125%/0.9% NACL (Bupivacaine-Ns 0.125% On-Q Account Service Representative) 600 mls @ 4 mls/ hr IJ ONCE ONE Stop: 12/27/17 15:59 Last Admin: 12/21/17 10:08 Dose: 4 mls/hr Sodium Chloride 35 meq/Magnesium Sulfate 3 meq/Calcium Gluconate 4.5 meq/ Multivitamins/Vitamin C 10 ml/Heparin Sodium (Porcine) 1, 000 units/ Amino Acids 1,030.1663 mls @ 42 mls/hr IV .Q24H ONE Stop: 12/26/17 17:59 Last Admin: 12/25/17 17:47 Dose: 42 mls/hr Insulin Human Regular (Novolin R) 0 unit SC Q6 [facility] PRN Reason: Protocol Last Admin: 12/26/17 07:00 Dose: Not Given Lorazepam (Ativan) 2 mg IVP Q6H PRN PRN Reason: Anxiety Last Admin: 12/26/17 05:40 Dose: 2 mg Pantoprazole Sodium (Protonix Inj) 40 mg IVP Q12H [facility] Last Admin: 12/26/17 09:23 Dose: 40 mg Saccharomyces Boulardii (Florastor) 250 mg PO Q12 [facility] Last Admin: 12/26/17 09:34 Dose: 250 mg - Labs Labs: 12/26/17 06:21 12/26/17 06:14 PT 14.0 SECONDS (9.7-12.2) H 12/24/17 08:54 INR 1.3 12/24/17 08:54 APTT 40 SECONDS (21-34) H 18 12:39 Attending/Attestation - Attestation I have personally seen and examined this patient.: Yes I have fully participated in the care of the patient.: Yes I have reviewed all pertinent clinical information, including history, physical exam and plan: Yes Notes (Text): 12/26/17 09:38 77 year old female with h/o obesity, duodenal carcinoid s/p EMR c/b perforation s/p jourdan patch, hospital course c/b ATN requiring HD, wound infection s/p I&D , remains on vent for now. Continue abx. UGI series per surgery. HD per renal. On TPN pending UGI series to transition to enteral feeding. Wean from vent per ICU.
[2017-12-26] MEDS: Albuterol-Ipratrop 3 mg / 0.5 (3 ml) UD INH PRN (08:22)
[2017-12-26 08:44] LABS: EOSINOPHIL 1 % (0-4); LYMPHOCYTE 8 % (20-40); MONOCYTE 4 % (0-10); NEUTROPHIL 87 % (50-75); TOTAL CELLS COUNTED 100
[2017-12-26 08:45] LABS: HYPOCHROMIC SLIGHT; PLATELET ESTIMATE NORMAL (NORMAL); POLYCHROMIC SLIGHT
[2017-12-26] MEDS: Meropenem 500 MG in Sodium Chloride 0.9% 100 ML IVPB SCH ×2 (09:20→21:45)
[2017-12-26] MEDS: Micafungin 100 MG in Sodium Chloride 0.9% 100 ML IV SCH (09:21)
[2017-12-26] MEDS: Linezolid 600 mg in D5W 300 ml 600 MG/300 ML BAG IVPB SCH (09:21)
[2017-12-26] MEDS: Saccharomyces Boulardi 250 mg Cap PO SCH ×2 (09:34→21:56)
--- NOTE | 2017-12-26 11:29 | RAD ---
HISTORY: intubated COMPARISON: No prior. FINDINGS: In situ ETT, tip of which lies approximately 4.7 cm above kathy. NGT is present, the tip of which overlies left upper quadrant of the abdomen. No change dual-lumen right IJ central line with tip in the SVC. LUNGS: The central pulmonary vasculature appears minimally congested. Linear subsegmental atelectasis and/or scarring again noted in the left upper lobe and left retrocardiac region. PLEURA: No significant pleural effusion identified, no pneumothorax apparent. CARDIOVASCULAR: Normal. OSSEOUS STRUCTURES: No significant abnormalities. VISUALIZED UPPER ABDOMEN: Normal. OTHER FINDINGS: None. IMPRESSION: Support lines and tubes as above. The central pulmonary vasculature appears minimally congested. Linear subsegmental atelectasis and/or scarring again noted in the left upper lobe and left retrocardiac region.
--- NOTE | 2017-12-26 12:23 | CP.PCM.PN ---
Subjective - Date & Time of Evaluation Date of Evaluation: 12/26/17 Time of Evaluation: 09:00 - Subjective Subjective: Seen and examined. patient on Mechanical ventilator,Patient was able to open her eyes when I called her name. Objective - Vital Signs/Intake and Output Vital Signs (last 24 hours): Temp Pulse Resp BP Pulse Ox 100.9 F H 96 H 33 H 122/64 100 12/26/17 12:00 12/26/17 12:00 12/26/17 12:00 12/26/17 12:00 12/26/17 12:00 Intake and Output: 12/26/17 12/26/17 06:59 18:59 Intake Total 904 702 Output Total 930 170 Balance -26 532 - Medications Medications: Current Medications Acetaminophen (Tylenol 325mg Tab) 650 mg PO Q6 PRN PRN Reason: Fever >100.4 F Last Admin: 12/26/17 06:33 Dose: 650 mg Albuterol/Ipratropium (Duoneb 3 Mg/0.5 Mg (3 Ml) Ud) 3 ml INH RQ4 PRN PRN Reason: Shortness of Breath Last Admin: 12/26/17 08:22 Dose: 3 ml Dextrose (Dextrose 50% Inj) 0 ml IV STAT PRN; Protocol PRN Reason: Hypoglycemia Protocol Dextrose (Glutose 15) 15 gm PO ONCE PRN; Protocol PRN Reason: Hypoglycemia Protocol Epoetin Juan F (Procrit) 8,000 unit IV [facility] Stop: 12/30/17 09:01 Last Admin: 12/25/17 14:39 Dose: 8,000 unit Glucagon (Glucagen Diagnostic Kit) 1 mg IM STAT PRN; Protocol PRN Reason: Hypoglycemia Protocol Heparin Sodium (Porcine) (Heparin) 3,700 units IVP [facility] Last Admin: 12/25/17 16:58 Dose: 3,700 units Hydromorphone HCl (Dilaudid) 0.5 mg IVP Q4H PRN PRN Reason: Pain, severe (8-10) Last Admin: 12/26/17 02:00 Dose: 0.5 mg Dextrose (Dextrose 5% In Water 1000 Ml) 1,000 mls @ 0 mls/hr IV .Q0M PRN; Protocol; Per Protocol PRN Reason: Hypoglycemia Protocol Meropenem 500 mg/ Sodium (Chloride) 100 mls @ 100 mls/hr IVPB Q12 [facility] PRN Reason: Protocol Last Admin: 12/26/17 09:20 Dose: 100 mls/hr Micafungin Sodium 100 mg/ (Sodium Chloride) 100 mls @ 100 mls/hr IV Q24H [facility] PRN Reason: Protocol Last Admin: 12/26/17 09:21 Dose: 100 mls/hr Linezolid (Zyvox 600mg/300ml D5w) 600 mg in 300 mls @ 200 mls/hr IVPB Q12 [facility] PRN Reason: Protocol Last Admin: 12/26/17 09:21 Dose: 200 mls/hr Sodium Chloride 35 meq/Magnesium Sulfate 3 meq/Calcium Gluconate 4.5 meq/ Multivitamins/Vitamin C 10 ml/Heparin Sodium (Porcine) 1, 000 units/ Amino Acids 1,030.1663 mls @ 42 mls/hr IV .Q24H ONE Stop: 12/26/17 17:59 Last Admin: 12/25/17 17:47 Dose: 42 mls/hr Sodium Chloride 35 meq/Magnesium Sulfate 3 meq/Calcium Gluconate 4.5 meq/ Multivitamins/Vitamin C 10 ml/Heparin Sodium (Porcine) 1, 000 units/ Amino Acids 1,030.1663 mls @ 42 mls/hr IV .Q24H ONE Stop: 12/27/17 17:59 Insulin Human Regular (Novolin R) 0 unit SC Q6 [facility] PRN Reason: Protocol Last Admin: 12/26/17 07:00 Dose: Not Given Lorazepam (Ativan) 2 mg IVP Q6H PRN PRN Reason: Anxiety Last Admin: 12/26/17 05:40 Dose: 2 mg Pantoprazole Sodium (Protonix Inj) 40 mg IVP Q12H [facility] Last Admin: 12/26/17 09:23 Dose: 40 mg Saccharomyces Boulardii (Florastor) 250 mg PO Q12 [facility] Last Admin: 12/26/17 09:34 Dose: 250 mg - Labs Labs: 12/26/17 06:21 12/26/17 06:14 PT 14.0 SECONDS (9.7-12.2) H 12/24/17 08:54 INR 1.3 12/24/17 08:54 APTT 40 SECONDS (21-34) H 12/18/17 12:39 - Constitutional Appears: No Acute Distress - Eye Exam Eye Exam: Normal appearance - ENT Exam ENT Exam: Mucous Membranes Moist - Neck Exam Neck Exam: Full ROM - Respiratory Exam Respiratory Exam: Clear to Ausculation Bilateral, NORMAL BREATHING PATTERN. absent: Rhonchi, Respiratory Distress - Cardiovascular Exam Cardiovascular Exam: REGULAR RHYTHM - GI/Abdominal Exam GI & Abdominal Exam: Soft, Hypoactive Bowel Sounds - Extremities Exam Extremities Exam: Full ROM, Normal Capillary Refill - Neurological Exam Neurological Exam: Awake. 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 she also had HTN crisis which was treated with cardene drip. Patient was admitted to ICU Returned to OR on 12/18/17 due to increasing free air noted on repeat CT scan and underwent s/p ex lap primary repair of duodenal perforation, jourdan patch. Omentectomy. Patient developed acute renal failure /ATN likely due to hydrodynamic injury leading to ATN Right shiley catheter placed - 12/20 - removed 12/24. Dialysis 12/20 and 12/21. Permacath placed 12/25. Dialysis 12/25 and 1 unit PRBC transfused. Plan: 1.s/p acute abdomen with duodenal perforation Patient had endoscopic resection of duodenal carcinoid tumor on 12/16/2017 Ct reported intraperitoneal air and patient underwent Exploratory lap and repair of perforation on 12/19. Patient is on antibiotics as per Dr Quinonez.continue Meropenem,Micafungin and Linezolid patient has fever spikes,cultures negative,follow blood culture,abdominal wall cultuer and catheter tip cultures Patient just had CT chest,abdomen and pelvis without contrast we will follow the report NPO, on TPN 2. KORI drain site cellulitis/abdominal wall abscess ,s/p I and D by surgery Has two KORI drain draining (drained 330 and 310) continue antibiotics and follow repeat blood cultures drawn on 12/24 we will follow with surgery team 3. Duodenal carcinoid tumor s/p resection 4. Acute renal failure/Oliguric/ATN started on dialysis on 12/20 Right shiley catheter placed - 12/20 - removed 12/24. Dialysis 12/20 and 12/21. Permacath placed 12/25. Dialysis 12/25 Urine out put low (240ml) we will follow with nephrology medication dose adjustment with Renal function and avoid nephrotoxic meds. 4. Hypertension s/p elevated BP , admitted to ICU due to SBP 220/140s initially on cardene drip. Blood pressure is ok now 5.Fever-She has fever spikes wbc remains high Todays Temp max 100.9 Dr Quinonez. continue Meropenem,Micafungin and Linezolid as per Dr Quinonez. patient has fever spikes,cultures negative,follow blood culture,abdominal wall culture and catheter tip cultures 6.Reparatory failure Weaning as per ICU team 7.Anemia- stool OB negative s/p PRBC transfused. Continue epogen 8.DVT prophylaxis is on heparin SQ and GI prophylaxis is on protonix Discussed with patient patient's daughter Mehul Johnston at bedside this afternoon.
--- NOTE | 2017-12-26 14:33 | CT ---
PROCEDURE: CT Chest, Abdomen and Pelvis without intravenous contrast HISTORY: Persistent leukocytosis, fever, s/p perforation COMPARISON: Non comparison made with prior CT scan chest abdomen pelvis 12/20/2017. TECHNIQUE: Radiation dose: Total exam DLP = mGy-cm. This CT exam was performed using one or more of the following dose reduction techniques: Automated exposure control, adjustment of the mA and/or kV according to patient size, and/or use of iterative reconstruction technique. FINDINGS: CT CHEST WITHOUT CONTRAST: LUNGS: Linear atelectasis - scarring changes seen in the left upper lobe extending to the surface of the major fissure. Linear atelectasis/ scarring also present within the medial aspect of the left lower lobe also extending from the pleural surface of the mediastinum and major fissure posteriorly to the posteromedial pleural surface of the lung. Similar changes seen in the medial aspect right lower lobe. Mild pleural thickening and/or atelectasis right lung base. Mild right apical pleural thickening There is small approximately 5.3 mm hazy nodular opacity in the right upper lobe unchanged. . MEDIASTINUM: Heart size within range of normal. No significant pericardial effusion. Ascending thoracic aorta measures approximately 3 cm and descending thoracic aorta measures approximately 2.4 cm. Pulmonary trunk measures approximately 3.4 cm; rule out underlying pulmonary arterial hypertension. . Central airways midline and patent not withstanding in situ endotracheal tube. LYMPH NODES: No significant mediastinal adenopathy. Evaluation for hilar adenopathy is limited due the lack of circulating intravenous contrast material. PLEURA: As above. No evidence of pneumothorax BONES: Mild multilevel degenerative spondylosis of the visualized thoracic as well as the lower cervical and upper lumbar spine. No acute compression fractures no retropulsed fragments. OTHER FINDINGS: Re- demonstrated is right sided PICC line and right IJ PermCath, ETT and NGT. CT ABDOMEN AND PELVIS: LIVER: The liver exhibits normal size. GALLBLADDER AND BILE DUCTS: Cholecystectomy. PANCREAS: Evaluation of the pancreas is limited due to motion artifact. Prominent pancreatic head. Questionable peripancreatic edema and fluid about pancreatic head and proximal body. Possibility of a mild pancreatitis to be considered. Correlation with serum amylase/ lipase recommended. Previously described 10 mm low-attenuation mass in the pancreatic body is poorly seen on this study. SPLEEN: Spleen unremarkable ADRENALS: The adrenal glands mildly enlarged KIDNEYS AND URETERS: The kidneys demonstrate relatively symmetric size. No evidence of nephrolithiasis or hydronephrosis. Infiltration changes are seen in the mesenteries about the kidney likely within the para renal space. Changes could be related to suspected aforementioned pancreatitis. VASCULATURE: Unremarkable. No aortic aneurysm. BOWEL: Evaluation of the bowel is limited due to the lack of oral contrast material and collapse of the stomach small and large bowel. Stomach at is incompletely distended. Distal aspect NGT is present within the stomach lumen. No evidence to suggest acute mechanical small large-bowel obstruction. APPENDIX: The appendix is not seen with any certainty on this study. PERITONEUM: Unremarkable. No free fluid. No free air. . Previously noted rectus sheath hematoma essentially unchanged LYMPH NODES: Unremarkable. No enlarged lymph nodes. BLADDER: Evaluation of the urinary bladder is limited due to in situ unclamped Esteban catheter. Urinary bladder wall is collapsed about the inflated Esteban balloon and therefore cannot be adequately evaluated REPRODUCTIVE: Unremarkable as visualized BONES: Visualized mild multilevel degenerative spondylosis. No acute compression fractures OTHER FINDINGS: None. IMPRESSION: Limited study. There are linear atelectatic and or scarring changes seen in the right and left upper lobes as well as the left lower lobe. Cholecystectomy with in situ drainage catheter. . Findings are consistent with acute pancreatitis with peripancreatic infiltration and small amount of fluid extending into the right para renal space. .
--- NOTE | 2017-12-26 15:02 | CP.PCM.PN ---
Subjective - Date & Time of Evaluation Date of Evaluation: 12/26/17 Time of Evaluation: 15:01 - Subjective Subjective: Nephrology Consultation Note: Assessment: critical oliguric Acute Kidney Injury (N17.9) likely hemodynamic injury leading to ATN with Pulmonary congestion, started dialysis 12/20/17 HAGMA with respi compensation, hypocalcemia with Vit D insuff (level 23) carcinoid HTN crisis s/p resection now resolved acute abdomen with perforation s/p repair 12/18/17 (ex lap) hypertension, COPD, breast cancer s/p lumpectomy and duodenal neuroendocrine tumor Plan Plan for HD tomorrow as MWF as ordered. continue to monitor for spontaneous renal recovery No ACEI/ARB due to MANFRED. Maintain hemodynamics stable. Monitor Input/Output, daily weights and renal function with basic metabolic panel minimize IVF agree with IV calcium gluconate supplementation as needed anemia: PRBC as needed. ordered epogen 8000 unit 3 times a week will give Vit D and iron/MVI once pt on diet Dose meds/antibiotics for reduced GFR and dialysis status. Avoid fleets enema/ magnesium based laxatives. Avoid nephrotoxins/NSAIDs/ iodinated contrast ( unless needed emergently) Glycemic control Further work up/management as per primary team Thanks for allowing me to participate in care of your patient. Will follow patient with you. Please call if any Qs. 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 she also had HTN crisis which was treated with cardene drip. renal consult for MANFRED eval. also found to have free air in abdomen Denies OTC/herbal meds or NSAIDs No recent iodinated contrast exposure. Noted obvious episodes of low BP (89/51). ROS: unable as pt intubated Physical Examination: General Appearance: remains intubated, ill appearing Vitals reviewed and noted as below Head; Atraumatic, normocephalic ENT: orally intubated EYES: Pupils are equal, round and reactive to light accommodation. Eye muscles and extraocular movement intact. Sclera is anicteric. Neck; supple no lymphadenopathy, no thyromegaly or bruit Lungs: Increased respiratory rate/effort. Breath sounds bilateral equal and bilateral with few wheeze Heart: Normal rate. s1s2 normal. No rub or gallop. Extremities: no edema. No varicose veins Neurological: Patient is sedated Skin: Warm and dry. Normal turgor. No rash. Palpitation: Normal elasticity for age Abdomen: no abdominal tenderness with out guarding but no rigidity no organomegaly s/p exlap Psych: unable MSK: no joint tenderness or swelling. Digits and nails normal, no deformity : kidney or bladder not palpable. has bruce with dark colored urine access: permacath Labs/imaging reviewed. Past medical history, past surgical history, family history, social history, allergy reviewed and noted as below Family hx: no hx of CKD. Rest non-contributory renal imaging: WNL FeNa 0.7% UA 1+ protein no blood Objective - Vital Signs/Intake and Output Vital Signs (last 24 hours): Temp Pulse Resp BP Pulse Ox 100.9 F H 100 H 30 H 119/68 99 12/26/17 12:00 12/26/17 13:00 12/26/17 13:00 12/26/17 13:00 12/26/17 13:00 Intake and Output: 12/26/17 12/26/17 06:59 18:59 Intake Total 904 894 Output Total 930 170 Balance -26 724 - Medications Medications: Current Medications Acetaminophen (Tylenol 325mg Tab) 650 mg PO Q6 PRN PRN Reason: Fever >100.4 F Last Admin: 12/26/17 06:33 Dose: 650 mg Albuterol/Ipratropium (Duoneb 3 Mg/0.5 Mg (3 Ml) Ud) 3 ml INH RQ4 PRN PRN Reason: Shortness of Breath Last Admin: 12/26/17 08:22 Dose: 3 ml Dextrose (Dextrose 50% Inj) 0 ml IV STAT PRN; Protocol PRN Reason: Hypoglycemia Protocol Dextrose (Glutose 15) 15 gm PO ONCE PRN; Protocol PRN Reason: Hypoglycemia Protocol Epoetin Juan F (Procrit) 8,000 unit IV [facility] Stop: 12/30/17 09:01 Last Admin: 12/25/17 14:39 Dose: 8,000 unit Glucagon (Glucagen Diagnostic Kit) 1 mg IM STAT PRN; Protocol PRN Reason: Hypoglycemia Protocol Heparin Sodium (Porcine) (Heparin) 3,700 units IVP MWF [facility] Last Admin: 12/25/17 16:58 Dose: 3,700 units Hydromorphone HCl (Dilaudid) 0.5 mg IVP Q4H PRN PRN Reason: Pain, severe (8-10) Last Admin: 12/26/17 02:00 Dose: 0.5 mg Dextrose (Dextrose 5% In Water 1000 Ml) 1,000 mls @ 0 mls/hr IV .Q0M PRN; Protocol; Per Protocol PRN Reason: Hypoglycemia Protocol Meropenem 500 mg/ Sodium (Chloride) 100 mls @ 100 mls/hr IVPB Q12 [facility] PRN Reason: Protocol Last Admin: 12/26/17 09:20 Dose: 100 mls/hr Micafungin Sodium 100 mg/ (Sodium Chloride) 100 mls @ 100 mls/hr IV Q24H [facility] PRN Reason: Protocol Last Admin: 12/26/17 09:21 Dose: 100 mls/hr Linezolid (Zyvox 600mg/300ml D5w) 600 mg in 300 mls @ 200 mls/hr IVPB Q12 [facility] PRN Reason: Protocol Last Admin: 12/26/17 09:21 Dose: 200 mls/hr Sodium Chloride 35 meq/Magnesium Sulfate 3 meq/Calcium Gluconate 4.5 meq/ Multivitamins/Vitamin C 10 ml/Heparin Sodium (Porcine) 1, 000 units/ Amino Acids 1,030.1663 mls @ 42 mls/hr IV .Q24H [facility] Stop: 12/26/17 17:59 Last Admin: 12/25/17 17:47 Dose: 42 mls/hr Sodium Chloride 35 meq/Magnesium Sulfate 3 meq/Calcium Gluconate 4.5 meq/ Multivitamins/Vitamin C 10 ml/Heparin Sodium (Porcine) 1, 000 units/ Amino Acids 1,030.1663 mls @ 42 mls/hr IV .Q24H ONE Stop: 12/27/17 17:59 Insulin Human Regular (Novolin R) 0 unit SC Q6 [facility] PRN Reason: Protocol Last Admin: 12/26/17 07:00 Dose: Not Given Lorazepam (Ativan) 2 mg IVP Q6H PRN PRN Reason: Anxiety Last Admin: 12/26/17 12:37 Dose: 2 mg Pantoprazole Sodium (Protonix Inj) 40 mg IVP Q12H [facility] Last Admin: 12/26/17 09:23 Dose: 40 mg Saccharomyces Boulardii (Florastor) 250 mg PO Q12 [facility] Last Admin: 12/26/17 09:34 Dose: 250 mg - Labs Labs: 12/26/17 06:21 12/26/17 06:14 PT 14.0 SECONDS (9.7-12.2) H 12/24/17 08:54 INR 1.3 12/24/17 08:54 APTT 40 SECONDS (21-34) H 12/18/17 12:39
[2017-12-26] MEDS ORDERED: TPN #4 IV ONE (18:00)
--- NOTE | 2017-12-26 18:25 | CP.PCM.PN ---
Subjective - Date & Time of Evaluation Date of Evaluation: 12/26/17 Time of Evaluation: 09:00 - Subjective Subjective: remains sedated on vent ETT in place afeb Objective - Vital Signs/Intake and Output Vital Signs (last 24 hours): Temp Pulse Resp BP Pulse Ox 99.5 F 101 H 30 H 131/65 98 12/26/17 16:00 12/26/17 18:00 12/26/17 18:00 12/26/17 18:00 12/26/17 18:00 Intake and Output: 12/26/17 12/26/17 06:59 18:59 Intake Total 904 1104 Output Total 930 345 Balance -26 759 - Medications Medications: Current Medications Acetaminophen (Tylenol 325mg Tab) 650 mg PO Q6 PRN PRN Reason: Fever >100.4 F Last Admin: 12/26/17 06:33 Dose: 650 mg Albuterol/Ipratropium (Duoneb 3 Mg/0.5 Mg (3 Ml) Ud) 3 ml INH RQ4 PRN PRN Reason: Shortness of Breath Last Admin: 12/26/17 08:22 Dose: 3 ml Dextrose (Dextrose 50% Inj) 0 ml IV STAT PRN; Protocol PRN Reason: Hypoglycemia Protocol Dextrose (Glutose 15) 15 gm PO ONCE PRN; Protocol PRN Reason: Hypoglycemia Protocol Epoetin Juan F (Procrit) 8,000 unit IV [facility] Stop: 12/30/17 09:01 Last Admin: 12/25/17 14:39 Dose: 8,000 unit Glucagon (Glucagen Diagnostic Kit) 1 mg IM STAT PRN; Protocol PRN Reason: Hypoglycemia Protocol Heparin Sodium (Porcine) (Heparin) 3,700 units IVP [facility] Last Admin: 12/25/17 16:58 Dose: 3,700 units Hydromorphone HCl (Dilaudid) 0.5 mg IVP Q4H PRN PRN Reason: Pain, severe (8-10) Last Admin: 12/26/17 02:00 Dose: 0.5 mg Dextrose (Dextrose 5% In Water 1000 Ml) 1,000 mls @ 0 mls/hr IV .Q0M PRN; Protocol; Per Protocol PRN Reason: Hypoglycemia Protocol Meropenem 500 mg/ Sodium (Chloride) 100 mls @ 100 mls/hr IVPB Q12 [facility] PRN Reason: Protocol Last Admin: 12/26/17 09:20 Dose: 100 mls/hr Micafungin Sodium 100 mg/ (Sodium Chloride) 100 mls @ 100 mls/hr IV Q24H [facility] PRN Reason: Protocol Last Admin: 12/26/17 09:21 Dose: 100 mls/hr Linezolid (Zyvox 600mg/300ml D5w) 600 mg in 300 mls @ 200 mls/hr IVPB Q12 [facility] PRN Reason: Protocol Last Admin: 12/26/17 09:21 Dose: 200 mls/hr Sodium Chloride 35 meq/Magnesium Sulfate 3 meq/Calcium Gluconate 4.5 meq/ Multivitamins/Vitamin C 10 ml/Heparin Sodium (Porcine) 1, 000 units/ Amino Acids 1,030.1663 mls @ 42 mls/hr IV .Q24H [facility] Stop: 12/27/17 17:59 Last Admin: 12/26/17 17:36 Dose: 42 mls/hr Insulin Human Regular (Novolin R) 0 unit SC Q6 [facility] PRN Reason: Protocol Last Admin: 12/26/17 17:46 Dose: Not Given Lorazepam (Ativan) 2 mg IVP Q6H PRN PRN Reason: Anxiety Last Admin: 12/26/17 12:37 Dose: 2 mg Pantoprazole Sodium (Protonix Inj) 40 mg IVP Q12H [facility] Last Admin: 12/26/17 09:23 Dose: 40 mg Saccharomyces Boulardii (Florastor) 250 mg PO Q12 [facility] Last Admin: 12/26/17 09:34 Dose: 250 mg - Labs Labs: 12/26/17 06:21 12/26/17 06:14 PT 14.0 SECONDS (9.7-12.2) H 12/24/17 08:54 INR 1.3 12/24/17 08:54 APTT 40 SECONDS (21-34) H 12/18/17 12:39 - Constitutional Appears: No Acute Distress, Chronically Ill - Head Exam Head Exam: NORMOCEPHALIC - Eye Exam Eye Exam: absent: Scleral icterus - ENT Exam ENT Exam: Mucous Membranes Dry - Neck Exam Neck Exam: absent: Lymphadenopathy - Respiratory Exam Respiratory Exam: Decreased Breath Sounds, Prolonged Expiratory Phase, Rhonchi - Cardiovascular Exam Cardiovascular Exam: REGULAR RHYTHM, +S1, +S2 - GI/Abdominal Exam GI & Abdominal Exam: Distended, Diminished Bowel Sounds. absent: Tenderness Additional comments: right KORI drain site noted midline incision dry - Rectal Exam Rectal Exam: Deferred - Exam Exam: NORMAL INSPECTION - Extremities Exam Extremities Exam: absent: Pedal Edema - Back Exam Back Exam: absent: CVA tenderness (L), CVA tenderness (R) - Neurological Exam Neurological Exam: Altered - Psychiatric Exam Psychiatric exam: Depressed - Skin Skin Exam: Dry Assessment and Plan (1) Peritonitis Status: Acute (2) Sepsis Status: Acute (3) Sepsis Status: Acute (4) Renal failure (ARF), acute on chronic Status: Acute (5) Renal failure (ARF), acute on chronic Status: Acute - Assessment and Plan (Free Text) Assessment: remains vented CXT chest abd noted no new cultures Procalcitonin is 20 despite optimal broad spectrum rx all lines have been changed prognosis remains poor
--- NOTE | 2017-12-26 19:10 | CP.CCUPN ---
<Estefania Veliz - Last Filed: 12/26/17 19:07> CCU Subjective - Physician Review Subjective (Free Text): Patient seen and examined at bedside. Intubated on PRVC 14/40/500/5, not on sedation. CPAP trials. CCU Objective - Vital Signs / Intake & Output Vital Signs (Last 4 hours): Vital Signs Temp Pulse Resp BP Pulse Ox 12/26/17 19:00 100 H 32 H 134/66 99 12/26/17 18:00 100 H 30 H 131/65 99 12/26/17 17:00 102 H 36 H 167/68 H 100 12/26/17 16:00 99.5 F 97 H 30 H 130/73 100 Intake and Output (Last 8hrs): Intake & Output 12/26/17 12/26/17 12/26/17 06:59 14:59 22:59 Intake Total 636 936 210 Output Total 510 170 425 Balance 126 766 -215 Weight 240 lb 7.04 oz Intake: Intake, IV Amount 636 936 210 Right Distal Port PICC 300 600 right picc 2nd port 336 336 210 Output: Drainage 450 170 175 KORI 1 250 50 75 KORI 2 200 120 100 Urine 60 250 Urethral (Bruce) 60 250 - Physical Exam Head: Positive for: Atraumatic, Normocephalic, Ecchymosis Extroacular Muscles: Positive for: EOMI Conjunctiva: Positive for: Normal Mouth: Positive for: Other (INTUBATED) Nose (External): Positive for: Other (NGT in place ) Respiratory/Chest: Positive for: Clear to Auscultation. Negative for: Decreased Breath Sounds Cardiovascular: Positive for: Regular Rate and Rhythm Abdomen: Positive for: Tenderness, Normal Bowel Sounds, Other (KORI drains in place, s/p I & D 12/25/17 - dressing clean, dry, intact ). Negative for: Distention Upper Extremity: Positive for: Normal Inspection, NORMAL PULSES, Neurovascularly Intact, Capillary Refill < 2s Lower Extremity: Positive for: Normal Inspection, NORMAL PULSES, Neurovascularly Intact, Capillary Refill < 2 s Skin: Positive for: Warm, Dry, Normal Color Psychiatric: Positive for: Alert - Medications Active Medications: Active Medications Generic Name Dose Route Start Last Admin Trade Name Freq PRN Reason Stop Dose Admin Acetaminophen 650 mg 12/23/17 15:32 12/26/17 06:33 Tylenol 325mg Tab PO 650 mg Q6 PRN Administration Fever >100.4 F Albuterol/Ipratropium 3 ml 12/16/17 12:03 12/26/17 08:22 Duoneb 3 Mg/0.5 Mg (3 Ml) Ud INH 3 ml RQ4 PRN Administration Shortness of Breath Dextrose 0 ml 12/16/17 12:08 Dextrose 50% Inj IV STAT PRN Hypoglycemia Protocol Protocol Dextrose 15 gm 12/16/17 12:08 Glutose 15 PO ONCE PRN Hypoglycemia Protocol Protocol Epoetin Juan F 8,000 unit 12/25/17 15:00 12/25/17 14:39 Procrit IV 12/30/17 09:01 8,000 unit MWF FESTUS Administration Glucagon 1 mg 12/16/17 12:08 Glucagen Diagnostic Kit IM STAT PRN Hypoglycemia Protocol Protocol Heparin Sodium (Porcine) 3,700 units 12/25/17 16:46 12/25/17 16:58 Heparin IVP 3,700 units F FESTUS Administration Hydromorphone HCl 0.5 mg 12/17/17 09:53 12/26/17 02:00 Dilaudid IVP 0.5 mg Q4H PRN Administration Pain, severe (8-10) Dextrose 1,000 mls @ 0 mls/hr 12/16/17 12:08 Dextrose 5% In Water 1000 Ml IV .Q0M PRN Hypoglycemia Protocol Protocol Per Protocol Meropenem 500 mg/ Sodium 100 mls @ 100 mls/hr 12/18/17 10:00 12/26/17 09:20 Chloride IVPB 100 mls/hr Q12 FESTUS Administration Protocol Micafungin Sodium 100 mg/ 100 mls @ 100 mls/hr 12/21/17 10:00 12/26/17 09:21 Sodium Chloride IV 100 mls/hr Q24H FESTUS Administration Protocol Sodium Chloride 35 meq/ 1,030.1663 mls @ 42 mls/hr 12/26/17 18:00 12/26/17 17 :36 Magnesium Sulfate 3 meq/ IV 12/27/17 17:59 42 mls/hr Calcium Gluconate 4.5 meq/ .Q24H ONE Administration Multivitamins/Vitamin C 10 ml/ Heparin Sodium (Porcine) 1, 000 units/ Amino Acids Amikacin Sulfate 750 mg/ 253 mls @ 250 mls/hr 12/26/17 20:30 Sodium Chloride IVPB Q48H [facility] Protocol Daptomycin 600 mg/ Sodium 100 mls @ 100 mls/hr 12/26/17 19:30 Chloride IV 12/31/17 19:31 Q48H [facility] Protocol Insulin Human Regular 0 unit 12/19/17 00:00 12/26/17 17:46 Novolin R SC Not Given Q6 [facility] Protocol Lorazepam 2 mg 12/25/17 19:50 12/26/17 12:37 Ativan IVP 2 mg Q6H PRN Administration Anxiety Pantoprazole Sodium 40 mg 12/23/17 22:00 12/26/17 09:23 Protonix Inj IVP 40 mg Q12H FESTUS Administration Saccharomyces Boulardii 250 mg 12/23/17 22:00 12/26/17 09:34 Florastor PO 250 mg Q12 FESTUS Administration - Patient Studies Lab Studies: Microbiology Studies 12/24/17 14:20 Blood Culture - Preliminary Blood-Thru Central Line NO GROWTH AFTER 48 HOURS 12/25/17 17:05 Gram Stain - Preliminary Abdomen Wound Culture - Preliminary NO GROWTH AFTER 24 HOURS 12/24/17 09:41 Blood Culture - Preliminary Blood-Thru Central Line NO GROWTH AFTER 48 HOURS 12/25/17 09:41 Gram Stain - Final Sputum Induced 12/25/17 12:48 Gram Stain - Final Abdomen Lab Studies 12/26/17 12/26/17 12/26/17 Range/Units 17:45 11:39 06:21 WBC 19.7 H (4.8-10.8) K/uL RBC 3.03 L (3.80-5.20) Mil/uL Hgb 8.6 L (11.0-16.0) g/dL Hct 25.6 L (34.0-47.0) % MCV 84.7 D (81.0-99.0) fL MCH 28.4 (27.0-31.0) pg MCHC 33.5 (33.0-37.0) g/dL RDW 14.7 H (11.5-14.5) % Plt Count 183 (130-400) K/uL MPV 10.8 (7.2-11.7) fL Neut % (Auto) 85.6 H (50.0-75.0) % Lymph % (Auto) 6.0 L (20.0-40.0) % [place] % (Auto) 6.5 (0.0-10.0) % Eos % (Auto) 1.5 (0.0-4.0) % Baso % (Auto) 0.4 (0.0-2.0) % Neut # (Auto) 16.8 H (1.8-7.0) K/uL Lymph # (Auto) 1.2 (1.0-4.3) K/uL [place] # (Auto) 1.3 H (0.0-0.8) K/uL Eos # (Auto) 0.3 (0.0-0.7) K/uL Baso # (Auto) 0.1 (0.0-0.2) K/uL Neutrophils % (Manual) 87 H (50-75) % Lymphocytes % (Manual) 8 L (20-40) % Monocytes % (Manual) 4 (0-10) % Eosinophils % (Manual) 1 (0-4) % Platelet Estimate Normal (NORMAL) Polychromasia Slight Hypochromasia (manual) Slight Puncture Site pCO2 (35-45) mm/Hg pO2 (80-100) mm/Hg HCO3 (21-28) mmol/L ABG pH (7.35-7.45) ABG Total CO2 (22-28) mmol/L ABG O2 Saturation (95-98) % ABG Base Excess (-2.0-3.0) mmol/L ABG Hemoglobin (11.7-17.4) g/dL ABG Carboxyhemoglobin (0.5-1.5) % POC ABG HHb (Measured) (0.0-5.0) % ABG Methemoglobin (0.0-3.0) % Richard Test A-a O2 Difference mm/Hg Respiratory Index Hgb O2 Saturation (95.0-98.0) % Vent Mode Mechanical Rate FiO2 % Tidal Volume PEEP Sodium (132-148) mmol/L Potassium (3.6-5.2) mmol/L Chloride (98-107) mmol/L Carbon Dioxide (22-30) mmol/L Anion Gap (10-20) BUN (7-17) mg/dL Creatinine (0.7-1.2) mg/dL Est GFR ( Amer) Est GFR (Non-Af Amer) POC Glucose (mg/dL) 134 H 151 H (65-110) mg/dL Random Glucose (65-105) mg/dL Calcium (8.6-10.4) mg/dl Phosphorus (2.5-4.5) mg/dL Magnesium (1.6-2.3) mg/dL Total Bilirubin (0.2-1.3) mg/dL AST (14-36) U/L ALT (9-52) U/L Alkaline Phosphatase (38-126) U/L Total Protein (6.3-8.3) g/dL Albumin (3.5-5.0) g/dL Globulin (2.2-3.9) gm/dL Albumin/Globulin Ratio (1.0-2.1) 12/26/17 12/26/17 12/26/17 Range/Units 06:14 05:04 04:40 WBC (4.8-10.8) K/uL RBC (3.80-5.20) Mil/uL Hgb (11.0-16.0) g/dL Hct (34.0-47.0) % MCV (81.0-99.0) fL MCH (27.0-31.0) pg MCHC (33.0-37.0) g/dL RDW (11.5-14.5) % Plt Count (130-400) K/uL MPV (7.2-11.7) fL Neut % (Auto) (50.0-75.0) % Lymph % (Auto) (20.0-40.0) % [place] % (Auto) (0.0-10.0) % Eos % (Auto) (0.0-4.0) % Baso % (Auto) (0.0-2.0) % Neut # (Auto) (1.8-7.0) K/uL Lymph # (Auto) (1.0-4.3) K/uL [place] # (Auto) (0.0-0.8) K/uL Eos # (Auto) (0.0-0.7) K/uL Baso # (Auto) (0.0-0.2) K/uL Neutrophils % (Manual) (50-75) % Lymphocytes % (Manual) (20-40) % Monocytes % (Manual) (0-10) % Eosinophils % (Manual) (0-4) % Platelet Estimate (NORMAL) Polychromasia Hypochromasia (manual) Puncture Site Rr pCO2 34 L (35-45) mm/Hg pO2 76 L (80-100) mm/Hg HCO3 27.0 (21-28) mmol/L ABG pH 7.49 H (7.35-7.45) ABG Total CO2 26.9 (22-28) mmol/L ABG O2 Saturation 98.2 H (95-98) % ABG Base Excess 2.7 (-2.0-3.0) mmol/L ABG Hemoglobin 10.4 L (11.7-17.4) g/dL ABG Carboxyhemoglobin 1.8 H (0.5-1.5) % POC ABG HHb (Measured) 1.7 (0.0-5.0) % ABG Methemoglobin 1.5 (0.0-3.0) % Richard Test Pos A-a O2 Difference 167.0 mm/Hg Respiratory Index 2.2 Hgb O2 Saturation 95.0 (95.0-98.0) % Vent Mode Prvc Mechanical Rate 14 FiO2 40.0 % Tidal Volume 500 PEEP 5 Sodium 138 (132-148) mmol/L Potassium 3.2 L (3.6-5.2) mmol/L Chloride 99 (98-107) mmol/L Carbon Dioxide 26 (22-30) mmol/L Anion Gap 16 (10-20) BUN 50 H (7-17) mg/dL Creatinine 4.1 H (0.7-1.2) mg/dL Est GFR ( Amer) 13 Est GFR (Non-Af Amer) 10 POC Glucose (mg/dL) 147 H (65-110) mg/dL Random Glucose 129 H (65-105) mg/dL Calcium 7.0 L (8.6-10.4) mg/dl Phosphorus 2.9 (2.5-4.5) mg/dL Magnesium 2.0 (1.6-2.3) mg/dL Total Bilirubin 0.8 (0.2-1.3) mg/dL AST 34 (14-36) U/L ALT 26 (9-52) U/L Alkaline Phosphatase 75 (38-126) U/L Total Protein 5.8 L (6.3-8.3) g/dL Albumin 2.8 L (3.5-5.0) g/dL Globulin 2.9 (2.2-3.9) gm/dL Albumin/Globulin Ratio 1.0 (1.0-2.1) 12/26/17 12/25/17 Range/Units 01:04 18:19 WBC (4.8-10.8) K/uL RBC (3.80-5.20) Mil/uL Hgb (11.0-16.0) g/dL Hct (34.0-47.0) % MCV (81.0-99.0) fL MCH (27.0-31.0) pg MCHC (33.0-37.0) g/dL RDW (11.5-14.5) % Plt Count (130-400) K/uL MPV (7.2-11.7) fL Neut % (Auto) (50.0-75.0) % Lymph % (Auto) (20.0-40.0) % [place] % (Auto) (0.0-10.0) % Eos % (Auto) (0.0-4.0) % Baso % (Auto) (0.0-2.0) % Neut # (Auto) (1.8-7.0) K/uL Lymph # (Auto) (1.0-4.3) K/uL [place] # (Auto) (0.0-0.8) K/uL Eos # (Auto) (0.0-0.7) K/uL Baso # (Auto) (0.0-0.2) K/uL Neutrophils % (Manual) (50-75) % Lymphocytes % (Manual) (20-40) % Monocytes % (Manual) (0-10) % Eosinophils % (Manual) (0-4) % Platelet Estimate (NORMAL) Polychromasia Hypochromasia (manual) Puncture Site pCO2 (35-45) mm/Hg pO2 (80-100) mm/Hg HCO3 (21-28) mmol/L ABG pH (7.35-7.45) ABG Total CO2 (22-28) mmol/L ABG O2 Saturation (95-98) % ABG Base Excess (-2.0-3.0) mmol/L ABG Hemoglobin (11.7-17.4) g/dL ABG Carboxyhemoglobin (0.5-1.5) % POC ABG HHb (Measured) (0.0-5.0) % ABG Methemoglobin (0.0-3.0) % Richard Test A-a O2 Difference mm/Hg Respiratory Index Hgb O2 Saturation (95.0-98.0) % Vent Mode Mechanical Rate FiO2 % Tidal Volume PEEP Sodium (132-148) mmol/L Potassium (3.6-5.2) mmol/L Chloride (98-107) mmol/L Carbon Dioxide (22-30) mmol/L Anion Gap (10-20) BUN (7-17) mg/dL Creatinine (0.7-1.2) mg/dL Est GFR ( Amer) Est GFR (Non-Af Amer) POC Glucose (mg/dL) 151 H 142 H (65-110) mg/dL Random Glucose (65-105) mg/dL Calcium (8.6-10.4) mg/dl Phosphorus (2.5-4.5) mg/dL Magnesium (1.6-2.3) mg/dL Total Bilirubin (0.2-1.3) mg/dL AST (14-36) U/L ALT (9-52) U/L Alkaline Phosphatase (38-126) U/L Total Protein (6.3-8.3) g/dL Albumin (3.5-5.0) g/dL Globulin (2.2-3.9) gm/dL Albumin/Globulin Ratio (1.0-2.1) Laboratory Results - last 24 hr 12/25/17 12/26/17 12/26/17 18:19 01:04 04:40 WBC RBC Hgb Hct MCV MCH MCHC RDW Plt Count MPV Neut % (Auto) Lymph % (Auto) [place] % (Auto) Eos % (Auto) Baso % (Auto) Neut # (Auto) Lymph # (Auto) [place] # (Auto) Eos # (Auto) Baso # (Auto) Neutrophils % (Manual) Lymphocytes % (Manual) Monocytes % (Manual) Eosinophils % (Manual) Platelet Estimate Polychromasia Hypochromasia (manual) Puncture Site Rr pCO2 34 L pO2 76 L HCO3 27.0 ABG pH 7.49 H ABG Total CO2 26.9 ABG O2 Saturation 98.2 H ABG Base Excess 2.7 ABG Hemoglobin 10.4 L ABG Carboxyhemoglobin 1.8 H POC ABG HHb (Measured) 1.7 ABG Methemoglobin 1.5 Richard Test Pos A-a O2 Difference 167.0 Respiratory Index 2.2 Hgb O2 Saturation 95.0 Vent Mode Prvc Mechanical Rate 14 FiO2 40.0 Tidal Volume 500 PEEP 5 Sodium Potassium Chloride Carbon Dioxide Anion Gap BUN Creatinine Est GFR ( Amer) Est GFR (Non-Af Amer) POC Glucose (mg/dL) 142 H 151 H Random Glucose Calcium Phosphorus Magnesium Total Bilirubin AST ALT Alkaline Phosphatase Total Protein Albumin Globulin Albumin/Globulin Ratio 12/26/17 12/26/17 12/26/17 05:04 06:14 06:21 WBC 19.7 H RBC 3.03 L Hgb 8.6 L Hct 25.6 L MCV 84.7 D MCH 28.4 MCHC 33.5 RDW 14.7 H Plt Count 183 MPV 10.8 Neut % (Auto) 85.6 H Lymph % (Auto) 6.0 L [place] % (Auto) 6.5 Eos % (Auto) 1.5 Baso % (Auto) 0.4 Neut # (Auto) 16.8 H Lymph # (Auto) 1.2 [place] # (Auto) 1.3 H Eos # (Auto) 0.3 Baso # (Auto) 0.1 Neutrophils % (Manual) 87 H Lymphocytes % (Manual) 8 L Monocytes % (Manual) 4 Eosinophils % (Manual) 1 Platelet Estimate Normal Polychromasia Slight Hypochromasia (manual) Slight Puncture Site pCO2 pO2 HCO3 ABG pH ABG Total CO2 ABG O2 Saturation ABG Base Excess ABG Hemoglobin ABG Carboxyhemoglobin POC ABG HHb (Measured) ABG Methemoglobin Richard Test A-a O2 Difference Respiratory Index Hgb O2 Saturation Vent Mode Mechanical Rate FiO2 Tidal Volume PEEP Sodium 138 Potassium 3.2 L Chloride 99 Carbon Dioxide 26 Anion Gap 16 BUN 50 H Creatinine 4.1 H Est GFR ( Amer) 13 Est GFR (Non-Af Amer) 10 POC Glucose (mg/dL) 147 H Random Glucose 129 H Calcium 7.0 L Phosphorus 2.9 Magnesium 2.0 Total Bilirubin 0.8 AST 34 ALT 26 Alkaline Phosphatase 75 Total Protein 5.8 L Albumin 2.8 L Globulin 2.9 Albumin/Globulin Ratio 1.0 12/26/17 12/26/17 11:39 17:45 WBC RBC Hgb Hct MCV MCH MCHC RDW Plt Count MPV Neut % (Auto) Lymph % (Auto) [place] % (Auto) Eos % (Auto) Baso % (Auto) Neut # (Auto) Lymph # (Auto) [place] # (Auto) Eos # (Auto) Baso # (Auto) Neutrophils % (Manual) Lymphocytes % (Manual) Monocytes % (Manual) Eosinophils % (Manual) Platelet Estimate Polychromasia Hypochromasia (manual) Puncture Site pCO2 pO2 HCO3 ABG pH ABG Total CO2 ABG O2 Saturation ABG Base Excess ABG Hemoglobin ABG Carboxyhemoglobin POC ABG HHb (Measured) ABG Methemoglobin Richard Test A-a O2 Difference Respiratory Index Hgb O2 Saturation Vent Mode Mechanical Rate FiO2 Tidal Volume PEEP Sodium Potassium Chloride Carbon Dioxide Anion Gap BUN Creatinine Est GFR ( Amer) Est GFR (Non-Af Amer) POC Glucose (mg/dL) 151 H 134 H Random Glucose Calcium Phosphorus Magnesium Total Bilirubin AST ALT Alkaline Phosphatase Total Protein Albumin Globulin Albumin/Globulin Ratio Fingerstick Blood Sugar Results: 142 Critical Care Progress Note - Nutrition Nutrition: Nutrition Category Date Time Status NPO Diet [DIET] Diets 12/20/17 Dinner Active Assessment/Plan - Assessment and Plan (Free Text) Assessment: This is a 77yo female with history of hypertension, COPD, breast cancer s/p lumpectomy that presented to same day 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 During the procedure, patient experienced a significant amount of bleeding which was treated with a combination of clipping , electrocautery and epinephrine. Bleeding was significantly reduced however patient was subsequently admitted to ICU for close observation. Patient was admitted to ICU due to SBP 220/140s initially on cardene drip x 1 - 2 hours. Returned to OR 12/18/17 due to increasing free air noted on repeat CT scan ; s/p ex lap primary repair of duodenal perforation, jourdan patch. Omentectomy. Picc line placed 12/20/17 Right shiley catheter placed - 12/20 - removed 12/24. Permacath placed 12/25. Dialysis 12/25 and 1 unit PRBC transfused --- > Dialysis , 12/21, 12/25 12/25 bedside I & D of abdominal wall abscess, wound cultures sent. 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 Alatorre - Previous hemorrhage - stabilized with a combination of clipping, electrocautery and epinephrine - PPI Q12 - Ct chest, abdomen, pelvis 2/2 abdominal pain and guarding on exam: Mild increase in the extent of pneumoperitoneum. Increasing ascites. Extensive gas adjacent to 2nd duodenum and nasim hepatis. Status post cholecystectomy. Nasogastric tube. Fluid in retroperitoneum and gas in perinephric space on right side. Cannot rule out pancreatitis. Please correlate. Trace right pleural effusion. No pulmonary infiltrate. - Upper GI series - Free air noted - As per surgery patient is for OR due to increasing free air ; s/p ex lap primary repair of duodenal perforation, jourdan patch. Omentectomy. 12/18 A: Pancreatitis? - Noted on CT C/ab/pel: Limited study. There are linear atelectatic and or scarring changes seen in the right and left upper lobes as well as the left lower lobe. Cholecystectomy with in situ drainage catheter. . Findings are consistent with acute pancreatitis with peripancreatic infiltration and small amount of fluid extending into the right para renal space. - Lipase, Amylase ordered A: Pancreatic nodule - Questionable 9 mm rounded fluid density mass in the pancreatic body. This was not clearly appreciated on prior CT examination of 12/16/2017. Further evaluation is advised when clinically feasible with multiphasic contrast- enhanced CT. A: Transaminitis, Elevated T. Bili - RESOLVED - Viral hepatitis - negative - Abominal US - Diffuse increased echogenicity in the liver may reflect hepatic steatosis however parenchymal infectious/ inflammatory etiologies cannot be entirely excluded. Clinical and laboratory correlation is advised. Mild perihepatic ascites. Endo: A: Thyroid Nodule - There is a 1.9 cm mass in the lower pole of the left thyroid lobe. - Correlate with thyroid ultrasound examination. A: Hypocalcemia - Repleting A: IGT - HgA1c 5.9 Renal: A: ARF - Improving with HD - 2/2 ATN - MWF schedule - Avoid nephrotoxic drugs - Abdominal US- no sign of renal obstruction - Inserted bruce - Right Shiley catheter inserted 12/20- removed 12/24 - Dialysis 12/20, 12/21, 12/23, 12/25 - Permacath placed 12/25/17 ID: A: SIRS, Bandemia - resolving ID Consulted - Dr. Quinonez - Afebrile, vitals stable, no leukocytosis, no source of infection - Patient was prince-cultured 12/17/17 - all negative - Bandemia increasing- 61, Procal - 12.04 --> 20, lactate 2.4--> 1.7 - Meropenem renally dosed started 12/18/17, Micafungin 100mg Q12 started 12/21, started Amikacin 750mg Q48H and Daptomycin 600mg Q48H - 12/26 A: Fever - All Cultures negative to date - Right dialysis catheter removed 12/24 - culture negative to date - Repeat cultures -negative to date A: Abdominal wall abscess - S/P I&D 12/25/17 - Pending Wound culture A: Diarrhea - Likely 2/2 to abx - Diff- negative, probiotic started Heme/ Onc: A: Anemia - Hemoglobin baseline 13-14 - CT chest, ab, pelvis - no evidence of internal hemorrhage - S/P 1 unit 12/20, 2nd unit transfused 12/25 - Continue to monitor A: Hx breast cancer s/p lumpectomy Prophylaxis - PPI Q12 - SCDs, VTE c/i post op / concern for bleeding - Right PICC line 12/20, Right shiley cath inserted 12/20 - REMOVED 12/24, R Permacath placed 12/25 - Currently on TPN DW Dr. Ferrera, Estefania Veliz DO, PGY-1 <Tom Ferrera - Last Filed: 12/28/17 21:39> CCU Objective - Vital Signs / Intake & Output Vital Signs (Last 4 hours): Vital Signs Temp Pulse Resp BP Pulse Ox 12/28/17 21:13 122 H 127/88 100 12/28/17 21:00 99 H 31 H 98 12/28/17 20:42 98 H 29 H 122/47 L 99 12/28/17 20:12 93 H 17 113/51 L 100 12/28/17 20:00 98.1 F 97 H 30 H 98 12/28/17 19:43 96 H 30 H 134/60 99 12/28/17 19:12 91 H 32 H 115/64 99 12/28/17 19:00 91 H 31 H 99 12/28/17 18:43 88 30 H 126/66 99 12/28/17 18:13 87 29 H 121/59 L 99 12/28/17 18:00 91 H 20 98 12/28/17 17:42 86 14 129/54 L 100 Intake and Output (Last 8hrs): Intake & Output 12/28/17 12/28/17 12/28/17 06:59 14:59 22:59 Intake Total 474 701 6974 Output Total 660 350 470 Balance 180 -90 693 Weight 253 lb 8.505 oz Intake: Intake, IV Amount 840 260 463 Right Distal Port PICC 800 100 225 Right PICC 40 60 70 right picc 2nd port 100 168 Oral 0 Blood Product 0 650 Red Blood Cells Cpd As1 0 325 Lr Unit [id number] Other 50 Red Blood Cells Cpd As1 50 Lr Unit [id number] Output: Drainage 560 350 420 KORI 1 360 180 250 KORI 2 200 170 170 Urine 100 0 50 Urine, Voided 100 0 50 Other: # Bowel Movements 1 - Medications Active Medications: Active Medications Generic Name Dose Route Start Last Admin Trade Name Freq PRN Reason Stop Dose Admin Acetaminophen 650 mg 12/28/17 10:14 Tylenol 650 Mg Supp GA Q6 PRN Fever >100.4 F Albumin Human 25 gm 12/27/17 14:37 12/27/17 15:45 Albumin Human 25% (12.5 Gm/50 Ml) IV 25 gm MWF PRN Administration Other Albuterol/Ipratropium 3 ml 12/28/17 12:00 12/28/17 20:06 Duoneb 3 Mg/0.5 Mg (3 Ml) Ud INH 3 ml RQ4 FESTUS Administration Dextrose 0 ml 12/16/17 12:08 Dextrose 50% Inj IV STAT PRN Hypoglycemia Protocol Protocol Dextrose 15 gm 12/16/17 12:08 Glutose 15 PO ONCE PRN Hypoglycemia Protocol Protocol Epoetin Juan F 8,000 unit 12/25/17 15:00 12/27/17 17:40 Procrit IV 06/25/18 09:01 8,000 unit MWF FESTUS Administration Glucagon 1 mg 12/16/17 12:08 Glucagen Diagnostic Kit IM STAT PRN Hypoglycemia Protocol Protocol Heparin Sodium (Porcine) 3,700 units 12/25/17 16:46 12/27/17 17:40 Heparin IVP 3,700 units MWF FESTUS Administration Dextrose 1,000 mls @ 0 mls/hr 12/16/17 12:08 Dextrose 5% In Water 1000 Ml IV .Q0M PRN Hypoglycemia Protocol Protocol Per Protocol Meropenem 500 mg/ Sodium 100 mls @ 100 mls/hr 12/18/17 10:00 12/28/17 09:31 Chloride IVPB 100 mls/hr Q12 FESTUS Administration Protocol Micafungin Sodium 100 mg/ 100 mls @ 100 mls/hr 12/21/17 10:00 12/28/17 09:31 Sodium Chloride IV 100 mls/hr Q24H FESTUS Administration Protocol Amikacin Sulfate 750 mg/ 253 mls @ 250 mls/hr 12/26/17 20:30 12/28/17 20:31 Sodium Chloride IVPB 250 mls/hr Q48H FESTUS Administration Protocol Daptomycin 600 mg/ Sodium 100 mls @ 100 mls/hr 12/26/17 19:30 12/28/17 19:43 Chloride IV 12/31/17 19:31 100 mls/hr Q48H FESTUS Administration Protocol Dexmedetomidine HCl 200 mcg/ 50 mls @ 5.75 mls/hr 12/27/17 10:30 Sodium Chloride IV TITR PRN Agitation Protocol 0.2 MCG/KG/HR Octreotide Acetate 1,250 mcg/ 252.5 mls @ 10.1 mls/hr 12/28/17 10:13 11:13 Sodium Chloride IV 10.1 mls/hr .Q24H FESTUS Administration Protocol 50 MCG/HR Sodium Chloride 35 meq/ 1,030.1663 mls @ 42 mls/hr 12/28/17 18:00 12/28/17 17 :54 Magnesium Sulfate 3 meq/ IV 12/29/17 17:59 42 mls/hr Calcium Gluconate 4.5 meq/ .Q24H ONE Administration Multivitamins/Vitamin C 10 ml/ Heparin Sodium (Porcine) 1, 000 units/ Amino Acids Insulin Human Regular 0 unit 12/19/17 00:00 12/28/17 17:36 Novolin R SC Not Given Q6 [facility] Protocol Pantoprazole Sodium 40 mg 12/23/17 22:00 12/28/17 09:31 Protonix Inj IVP 40 mg Q12H FESTUS Administration Saccharomyces Boulardii 250 mg 12/23/17 22:00 12/28/17 09:31 Florastor PO 250 mg Q12 [facility]ST[facility] Administration - Patient Studies Lab Studies: Microbiology Studies 12/24/17 14:20 Blood Culture - Preliminary Blood-Thru Central Line NO GROWTH AFTER 4 DAYS 12/24/17 09:41 Blood Culture - Preliminary Blood-Thru Central Line NO GROWTH AFTER 4 DAYS 12/25/17 17:05 Gram Stain - Final Abdomen Wound Culture - Final Chio Albicans 12/25/17 12:48 Gram Stain - Final Abdomen Wound Culture - Final Chio Albicans Lab Studies 12/28/17 12/28/17 12/28/17 Range/Units 17:28 12:13 11:29 WBC (4.8-10.8) K/uL RBC (3.80-5.20) Mil/uL Hgb (11.0-16.0) g/dL Hct (34.0-47.0) % MCV (81.0-99.0) fL MCH (27.0-31.0) pg MCHC (33.0-37.0) g/dL RDW (11.5-14.5) % Plt Count (130-400) K/uL MPV (7.2-11.7) fL Neut % (Auto) (50.0-75.0) % Lymph % (Auto) (20.0-40.0) % [place] % (Auto) (0.0-10.0) % Eos % (Auto) (0.0-4.0) % Baso % (Auto) (0.0-2.0) % Neut # (Auto) (1.8-7.0) K/uL Lymph # (Auto) (1.0-4.3) K/uL [place] # (Auto) (0.0-0.8) K/uL Eos # (Auto) (0.0-0.7) K/uL Baso # (Auto) (0.0-0.2) K/uL Neutrophils % (Manual) (50-75) % Band Neutrophils % (0-2) % Lymphocytes % (Manual) (20-40) % Monocytes % (Manual) (0-10) % Eosinophils % (Manual) (0-4) % Platelet Estimate (NORMAL) Plt Clumps, EDTA Polychromasia Hypochromasia (manual) Poikilocytosis (manual Anisocytosis (manual) Tear Drop Cells Ovalocytes Puncture Site pCO2 (35-45) mm/Hg pO2 (80-100) mm/Hg HCO3 (21-28) mmol/L ABG pH (7.35-7.45) ABG Total CO2 (22-28) mmol/L ABG O2 Saturation (95-98) % ABG Base Excess (-2.0-3.0) mmol/L ABG Hemoglobin (11.7-17.4) g/dL ABG Carboxyhemoglobin (0.5-1.5) % POC ABG HHb (Measured) (0.0-5.0) % ABG Methemoglobin (0.0-3.0) % Richard Test A-a O2 Difference mm/Hg Respiratory Index Hgb O2 Saturation (95.0-98.0) % Vent Mode Mechanical Rate FiO2 % Tidal Volume PEEP Sodium (132-148) mmol/L Potassium (3.6-5.2) mmol/L Chloride (98-107) mmol/L Carbon Dioxide (22-30) mmol/L Anion Gap (10-20) BUN (7-17) mg/dL Creatinine (0.7-1.2) mg/dL Est GFR ( Amer) Est GFR (Non-Af Amer) POC Glucose (mg/dL) 146 H 143 H (65-110) mg/dL Random Glucose (65-105) mg/dL Calcium (8.6-10.4) mg/dl Phosphorus (2.5-4.5) mg/dL Magnesium (1.6-2.3) mg/dL Total Bilirubin (0.2-1.3) mg/dL AST (14-36) U/L ALT (9-52) U/L Alkaline Phosphatase (38-126) U/L Total Protein (6.3-8.3) g/dL Albumin (3.5-5.0) g/dL Globulin (2.2-3.9) gm/dL Albumin/Globulin Ratio (1.0-2.1) Blood Type O POSITIVE Antibody Screen Negative 12/28/17 12/28/17 12/28/17 Range/Units 06:47 06:30 06:30 WBC 16.2 H (4.8-10.8) K/uL RBC 2.83 L (3.80-5.20) Mil/uL Hgb 8.0 L (11.0-16.0) g/dL Hct 23.8 L (34.0-47.0) % MCV 84.0 (81.0-99.0) fL MCH 28.3 (27.0-31.0) pg MCHC 33.7 (33.0-37.0) g/dL RDW 14.5 (11.5-14.5) % Plt Count 183 (130-400) K/uL MPV 9.8 (7.2-11.7) fL Neut % (Auto) 81.9 H (50.0-75.0) % Lymph % (Auto) 8.2 L (20.0-40.0) % [place] % (Auto) 7.9 (0.0-10.0) % Eos % (Auto) 1.4 (0.0-4.0) % Baso % (Auto) 0.6 (0.0-2.0) % Neut # (Auto) 13.2 H (1.8-7.0) K/uL Lymph # (Auto) 1.3 (1.0-4.3) K/uL [place] # (Auto) 1.3 H (0.0-0.8) K/uL Eos # (Auto) 0.2 (0.0-0.7) K/uL Baso # (Auto) 0.1 (0.0-0.2) K/uL Neutrophils % (Manual) 73 (50-75) % Band Neutrophils % 8 H (0-2) % Lymphocytes % (Manual) 11 L (20-40) % Monocytes % (Manual) 7 (0-10) % Eosinophils % (Manual) 1 (0-4) % Platelet Estimate Normal (NORMAL) Plt Clumps, EDTA Present Polychromasia Slight Hypochromasia (manual) Slight Poikilocytosis (manual Slight Anisocytosis (manual) Slight Tear Drop Cells Slight Ovalocytes Slight Puncture Site pCO2 (35-45) mm/Hg pO2 (80-100) mm/Hg HCO3 (21-28) mmol/L ABG pH (7.35-7.45) ABG Total CO2 (22-28) mmol/L ABG O2 Saturation (95-98) % ABG Base Excess (-2.0-3.0) mmol/L ABG Hemoglobin (11.7-17.4) g/dL ABG Carboxyhemoglobin (0.5-1.5) % POC ABG HHb (Measured) (0.0-5.0) % ABG Methemoglobin (0.0-3.0) % Richard Test A-a O2 Difference mm/Hg Respiratory Index Hgb O2 Saturation (95.0-98.0) % Vent Mode Mechanical Rate FiO2 % Tidal Volume PEEP Sodium 141 (132-148) mmol/L Potassium 4.0 (3.6-5.2) mmol/L Chloride 103 (98-107) mmol/L Carbon Dioxide 25 (22-30) mmol/L Anion Gap 17 (10-20) BUN 50 H (7-17) mg/dL Creatinine 4.8 H (0.7-1.2) mg/dL Est GFR ( Amer) 11 Est GFR (Non-Af Amer) 9 POC Glucose (mg/dL) 171 H (65-110) mg/dL Random Glucose 168 H (65-105) mg/dL Calcium 7.3 L (8.6-10.4) mg/dl Phosphorus 4.7 H (2.5-4.5) mg/dL Magnesium 2.0 (1.6-2.3) mg/dL Total Bilirubin 0.9 (0.2-1.3) mg/dL AST 31 (14-36) U/L ALT 25 (9-52) U/L Alkaline Phosphatase 67 (38-126) U/L Total Protein 6.0 L (6.3-8.3) g/dL Albumin 2.8 L (3.5-5.0) g/dL Globulin 3.2 (2.2-3.9) gm/dL Albumin/Globulin Ratio 0.9 L (1.0-2.1) Blood Type Antibody Screen 12/28/17 12/27/17 Range/Units 05:22 23:38 WBC (4.8-10.8) K/uL RBC (3.80-5.20) Mil/uL Hgb (11.0-16.0) g/dL Hct (34.0-47.0) % MCV (81.0-99.0) fL MCH (27.0-31.0) pg MCHC (33.0-37.0) g/dL RDW (11.5-14.5) % Plt Count (130-400) K/uL MPV (7.2-11.7) fL Neut % (Auto) (50.0-75.0) % Lymph % (Auto) (20.0-40.0) % [place] % (Auto) (0.0-10.0) % Eos % (Auto) (0.0-4.0) % Baso % (Auto) (0.0-2.0) % Neut # (Auto) (1.8-7.0) K/uL Lymph # (Auto) (1.0-4.3) K/uL [place] # (Auto) (0.0-0.8) K/uL Eos # (Auto) (0.0-0.7) K/uL Baso # (Auto) (0.0-0.2) K/uL Neutrophils % (Manual) (50-75) % Band Neutrophils % (0-2) % Lymphocytes % (Manual) (20-40) % Monocytes % (Manual) (0-10) % Eosinophils % (Manual) (0-4) % Platelet Estimate (NORMAL) Plt Clumps, EDTA Polychromasia Hypochromasia (manual) Poikilocytosis (manual Anisocytosis (manual) Tear Drop Cells Ovalocytes Puncture Site Lr pCO2 34 L (35-45) mm/Hg pO2 83 (80-100) mm/Hg HCO3 25.3 (21-28) mmol/L ABG pH 7.46 H (7.35-7.45) ABG Total CO2 25.2 (22-28) mmol/L ABG O2 Saturation 98.8 H (95-98) % ABG Base Excess 0.5 (-2.0-3.0) mmol/L ABG Hemoglobin 8.4 L (11.7-17.4) g/dL ABG Carboxyhemoglobin 2.0 H (0.5-1.5) % POC ABG HHb (Measured) 1.2 (0.0-5.0) % ABG Methemoglobin 1.0 (0.0-3.0) % Richard Test Pos A-a O2 Difference 160.0 mm/Hg Respiratory Index 1.9 Hgb O2 Saturation 95.8 (95.0-98.0) % Vent Mode Aprv Mechanical Rate 14 FiO2 40.0 % Tidal Volume 450 PEEP 5 Sodium (132-148) mmol/L Potassium (3.6-5.2) mmol/L Chloride (98-107) mmol/L Carbon Dioxide (22-30) mmol/L Anion Gap (10-20) BUN (7-17) mg/dL Creatinine (0.7-1.2) mg/dL Est GFR ( Amer) Est GFR (Non-Af Amer) POC Glucose (mg/dL) 164 H (65-110) mg/dL Random Glucose (65-105) mg/dL Calcium (8.6-10.4) mg/dl Phosphorus (2.5-4.5) mg/dL Magnesium (1.6-2.3) mg/dL Total Bilirubin (0.2-1.3) mg/dL AST (14-36) U/L ALT (9-52) U/L Alkaline Phosphatase (38-126) U/L Total Protein (6.3-8.3) g/dL Albumin (3.5-5.0) g/dL Globulin (2.2-3.9) gm/dL Albumin/Globulin Ratio (1.0-2.1) Blood Type Antibody Screen Laboratory Results - last 24 hr 12/27/17 12/28/17 12/28/17 23:38 05:22 06:30 WBC 16.2 H RBC 2.83 L Hgb 8.0 L Hct 23.8 L MCV 84.0 MCH 28.3 MCHC 33.7 RDW 14.5 Plt Count 183 MPV 9.8 Neut % (Auto) 81.9 H Lymph % (Auto) 8.2 L [place] % (Auto) 7.9 Eos % (Auto) 1.4 Baso % (Auto) 0.6 Neut # (Auto) 13.2 H Lymph # (Auto) 1.3 [place] # (Auto) 1.3 H Eos # (Auto) 0.2 Baso # (Auto) 0.1 Neutrophils % (Manual) 73 Band Neutrophils % 8 H Lymphocytes % (Manual) 11 L Monocytes % (Manual) 7 Eosinophils % (Manual) 1 Platelet Estimate Normal Plt Clumps, EDTA Present Polychromasia Slight Hypochromasia (manual) Slight Poikilocytosis (manual Slight Anisocytosis (manual) Slight Tear Drop Cells Slight Ovalocytes Slight Puncture Site Lr pCO2 34 L pO2 83 HCO3 25.3 ABG pH 7.46 H ABG Total CO2 25.2 ABG O2 Saturation 98.8 H ABG Base Excess 0.5 ABG Hemoglobin 8.4 L ABG Carboxyhemoglobin 2.0 H POC ABG HHb (Measured) 1.2 ABG Methemoglobin 1.0 Richard Test Pos A-a O2 Difference 160.0 Respiratory Index 1.9 Hgb O2 Saturation 95.8 Vent Mode Aprv Mechanical Rate 14 FiO2 40.0 Tidal Volume 450 PEEP 5 Sodium Potassium Chloride Carbon Dioxide Anion Gap BUN Creatinine Est GFR ( Amer) Est GFR (Non-Af Amer) POC Glucose (mg/dL) 164 H Random Glucose Calcium Phosphorus Magnesium Total Bilirubin AST ALT Alkaline Phosphatase Total Protein Albumin Globulin Albumin/Globulin Ratio Blood Type Antibody Screen 12/28/17 12/28/17 12/28/17 06:30 06:47 11:29 WBC RBC Hgb Hct MCV MCH MCHC RDW Plt Count MPV Neut % (Auto) Lymph % (Auto) [place] % (Auto) Eos % (Auto) Baso % (Auto) Neut # (Auto) Lymph # (Auto) [place] # (Auto) Eos # (Auto) Baso # (Auto) Neutrophils % (Manual) Band Neutrophils % Lymphocytes % (Manual) Monocytes % (Manual) Eosinophils % (Manual) Platelet Estimate Plt Clumps, EDTA Polychromasia Hypochromasia (manual) Poikilocytosis (manual Anisocytosis (manual) Tear Drop Cells Ovalocytes Puncture Site pCO2 pO2 HCO3 ABG pH ABG Total CO2 ABG O2 Saturation ABG Base Excess ABG Hemoglobin ABG Carboxyhemoglobin POC ABG HHb (Measured) ABG Methemoglobin Richard Test A-a O2 Difference Respiratory Index Hgb O2 Saturation Vent Mode Mechanical Rate FiO2 Tidal Volume PEEP Sodium 141 Potassium 4.0 Chloride 103 Carbon Dioxide 25 Anion Gap 17 BUN 50 H Creatinine 4.8 H Est GFR ( Amer) 11 Est GFR (Non-Af Amer) 9 POC Glucose (mg/dL) 171 H 143 H Random Glucose 168 H Calcium 7.3 L Phosphorus 4.7 H Magnesium 2.0 Total Bilirubin 0.9 AST 31 ALT 25 Alkaline Phosphatase 67 Total Protein 6.0 L Albumin 2.8 L Globulin 3.2 Albumin/Globulin Ratio 0.9 L Blood Type Antibody Screen 12/28/17 12/28/17 12:13 17:28 WBC RBC Hgb Hct MCV MCH MCHC RDW Plt Count MPV Neut % (Auto) Lymph % (Auto) [place] % (Auto) Eos % (Auto) Baso % (Auto) Neut # (Auto) Lymph # (Auto) [place] # (Auto) Eos # (Auto) Baso # (Auto) Neutrophils % (Manual) Band Neutrophils % Lymphocytes % (Manual) Monocytes % (Manual) Eosinophils % (Manual) Platelet Estimate Plt Clumps, EDTA Polychromasia Hypochromasia (manual) Poikilocytosis (manual Anisocytosis (manual) Tear Drop Cells Ovalocytes Puncture Site pCO2 pO2 HCO3 ABG pH ABG Total CO2 ABG O2 Saturation ABG Base Excess ABG Hemoglobin ABG Carboxyhemoglobin POC ABG HHb (Measured) ABG Methemoglobin Richard Test A-a O2 Difference Respiratory Index Hgb O2 Saturation Vent Mode Mechanical Rate FiO2 Tidal Volume PEEP Sodium Potassium Chloride Carbon Dioxide Anion Gap BUN Creatinine Est GFR ( Amer) Est GFR (Non-Af Amer) POC Glucose (mg/dL) 146 H Random Glucose Calcium Phosphorus Magnesium Total Bilirubin AST ALT Alkaline Phosphatase Total Protein Albumin Globulin Albumin/Globulin Ratio Blood Type O POSITIVE Antibody Screen Negative Critical Care Progress Note - Nutrition Nutrition: Nutrition Category Date Time Status NPO Diet [DIET] Diets 12/20/17 Dinner Active Attending/Attestation - Attestation I have personally seen and examined this patient.: Yes I have fully participated in the care of the patient.: Yes I have reviewed all pertinent clinical information: Yes Notes (Text): 12/26/17 Today: December The Patient was seen and examined at the bedside, Medical records reviewed, and management issues were discussed and formulated with the house staff. I have reviewed all the relevant clinical, laboratory, hemodynamic, radiographic data and medications Events reviewed Pain issues, skin care, head of the bed elevation, glycemic control were addressed. Agree with above resident's assessment and treatment plans of care as transcribed in Dr. Veliz note.
--- NOTE | 2017-12-26 19:18 | CP.PCM.PN ---
<GeraldOly - Last Filed: 12/26/17 19:21> Subjective - Date & Time of Evaluation Date of Evaluation: 12/26/17 Time of Evaluation: 19:15 - Subjective Subjective: Surgery Pt seen and examined. Intubated on CPAP trial. Follows verbal commands. HAd CT done yesterday. Shows atelectasis, pancreatitis. Dressing changed on drain site. NGT in place. on TPN . Had HD yesterday . Continues to be febrile. Objective - Vital Signs/Intake and Output Vital Signs (last 24 hours): Temp Pulse Resp BP Pulse Ox 99.5 F 100 H 32 H 134/66 99 12/26/17 16:00 12/26/17 19:00 12/26/17 19:00 12/26/17 19:00 12/26/17 19:00 Intake and Output: 12/26/17 12/27/17 18:59 06:59 Intake Total 1104 42 Output Total 595 Balance 509 42 - Medications Medications: Current Medications Acetaminophen (Tylenol 325mg Tab) 650 mg PO Q6 PRN PRN Reason: Fever >100.4 F Last Admin: 12/26/17 06:33 Dose: 650 mg Albuterol/Ipratropium (Duoneb 3 Mg/0.5 Mg (3 Ml) Ud) 3 ml INH RQ4 PRN PRN Reason: Shortness of Breath Last Admin: 12/26/17 08:22 Dose: 3 ml Dextrose (Dextrose 50% Inj) 0 ml IV STAT PRN; Protocol PRN Reason: Hypoglycemia Protocol Dextrose (Glutose 15) 15 gm PO ONCE PRN; Protocol PRN Reason: Hypoglycemia Protocol Epoetin Juan F (Procrit) 8,000 unit IV [facility] Stop: 12/30/17 09:01 Last Admin: 12/25/17 14:39 Dose: 8,000 unit Glucagon (Glucagen Diagnostic Kit) 1 mg IM STAT PRN; Protocol PRN Reason: Hypoglycemia Protocol Heparin Sodium (Porcine) (Heparin) 3,700 units IVP [facility] Last Admin: 12/25/17 16:58 Dose: 3,700 units Hydromorphone HCl (Dilaudid) 0.5 mg IVP Q4H PRN PRN Reason: Pain, severe (8-10) Last Admin: 12/26/17 02:00 Dose: 0.5 mg Dextrose (Dextrose 5% In Water 1000 Ml) 1,000 mls @ 0 mls/hr IV .Q0M PRN; Protocol; Per Protocol PRN Reason: Hypoglycemia Protocol Meropenem 500 mg/ Sodium (Chloride) 100 mls @ 100 mls/hr IVPB Q12 [facility] PRN Reason: Protocol Last Admin: 12/26/17 09:20 Dose: 100 mls/hr Micafungin Sodium 100 mg/ (Sodium Chloride) 100 mls @ 100 mls/hr IV Q24H [facility] PRN Reason: Protocol Last Admin: 12/26/17 09:21 Dose: 100 mls/hr Sodium Chloride 35 meq/Magnesium Sulfate 3 meq/Calcium Gluconate 4.5 meq/ Multivitamins/Vitamin C 10 ml/Heparin Sodium (Porcine) 1, 000 units/ Amino Acids 1,030.1663 mls @ 42 mls/hr IV .Q24H ONE Stop: 12/27/17 17:59 Last Admin: 12/26/17 17:36 Dose: 42 mls/hr Amikacin Sulfate 750 mg/ (Sodium Chloride) 253 mls @ 250 mls/hr IVPB Q48H [facility] PRN Reason: Protocol Daptomycin 600 mg/ Sodium (Chloride) 100 mls @ 100 mls/hr IV Q48H [facility] PRN Reason: Protocol Stop: 12/31/17 19:31 Insulin Human Regular (Novolin R) 0 unit SC Q6 [facility]US PRN Reason: Protocol Last Admin: 12/26/17 17:46 Dose: Not Given Lorazepam (Ativan) 2 mg IVP Q6H PRN PRN Reason: Anxiety Last Admin: 12/26/17 12:37 Dose: 2 mg Pantoprazole Sodium (Protonix Inj) 40 mg IVP Q12H [facility] Last Admin: 12/26/17 09:23 Dose: 40 mg Saccharomyces Boulardii (Florastor) 250 mg PO Q12 [facility] Last Admin: 12/26/17 09:34 Dose: 250 mg - Labs Labs: 12/26/17 06:21 12/26/17 06:14 PT 14.0 SECONDS (9.7-12.2) H 12/24/17 08:54 INR 1.3 12/24/17 08:54 APTT 40 SECONDS (21-34) H 12/18/17 12:39 - Constitutional Appears: In Acute Distress - Head Exam Head Exam: ATRAUMATIC, NORMAL INSPECTION, NORMOCEPHALIC - Eye Exam Eye Exam: EOMI, PERRL - ENT Exam ENT Exam: Mucous Membranes Moist, Normal Exam - Neck Exam Neck Exam: Full ROM, Normal Inspection. absent: Lymphadenopathy - Respiratory Exam Respiratory Exam: Respiratory Distress Additional comments: On vent - GI/Abdominal Exam GI & Abdominal Exam: Soft, Tenderness. absent: Distended, Firm, Guarding, Hernia, Rebound Additional comments: Incision C/D/I Stapled. Drain Serobilious fluids. Packing in place on drain site. - Extremities Exam Additional comments: off loading boots in place. - Skin Skin Exam: Erythema, Warm Assessment and Plan - Assessment and Plan (Free Text) Assessment: 77F s/p repair of duodenal perforation with jourdan patch POD 9 CT : acute pancreatitis, atelectasis Febrile Persistent leukocytosis Plan: - drain management - wean and extubate - Dialysis as needed -IVF -NPO Further recs discuss with Dr. Alatorre <Deion Alatorre - Last Filed: 01/05/18 19:33> Objective - Vital Signs/Intake and Output Vital Signs (last 24 hours): Temp Pulse Resp BP Pulse Ox 97.8 F 94 H 28 H 126/52 L 100 01/01/18 17:00 01/01/18 19:34 01/01/18 19:34 01/01/18 19:35 01/01/18 19:34 - Labs Labs: 01/01/18 06:19 01/01/18 06:19 PT 14.0 SECONDS (9.7-12.2) H 12/24/17 08:54 INR 1.3 12/24/17 08:54 APTT 40 SECONDS (21-34) H 12/18/17 12:39 Attending/Attestation - Attestation I have personally seen and examined this patient.: Yes I have fully participated in the care of the patient.: Yes I have reviewed all pertinent clinical information, including history, physical exam and plan: Yes Notes (Text): Pt was seen and examined at bedside Agree with above note and assessment Pt is stil intubated Gastrograffin study to r/o leak Wean to extubate C/W IV antibiotics c.w current mx Plan d.w ICU team in detail
[2017-12-26] MEDS: DAPTOmycin 600 MG in Sodium Chloride 0.9% 100 ML IV SCH (19:45)
[2017-12-26] MEDS: Acetaminophen 650mg/20.3ml solution UD PO PRN (20:30)
[2017-12-26] MEDS: Amikacin Sulfate 750 MG in Sodium Chloride 0.9% 250 ML IVPB SCH (20:45)
[2017-12-26 20:48] LABS: AMYLASE 397 U/L (30-110)
[2017-12-26 21:00] LABS: LIPASE 3899 U/L (23-300)
[2017-12-27] MEDS: (Novolin R) Insulin Human Regular 100 units/ml vial SC SCH ×4 (00:30→18:45)
[2017-12-27 05:46] LABS: ABG ALLEN TEST POS; ARTERIAL BLOOD GAS HCO3 22.4 mmol/L (21-28); ARTERIAL BLOOD GAS HEMOGLOBIN 8.9 g/dL (11.7-17.4); ARTERIAL BLOOD GAS O2 SAT 98.7 % (95-98); ARTERIAL BLOOD GAS PCO2 28 mm/Hg (35-45); ARTERIAL BLOOD GAS PH 7.46 (7.35-7.45); ARTERIAL BLOOD GAS PO2 83 mm/Hg (80-100); ARTERIAL BLOOD GAS TCO2 20.8 mmol/L (22-28)
[2017-12-27 06:54] LABS: BASO % 0.1 % (0.0-2.0); EOS # 0.2 K/uL (0.0-0.7); EOS % 0.8 % (0.0-4.0); HEMOGLOBIN 8.8 g/dL (11.0-16.0); LYMPH # 0.8 K/uL (1.0-4.3); LYMPH % 4.3 % (20.0-40.0); MEAN CELL VOLUME 84.9 fL (81.0-99.0); MEAN CORPUSCULAR HEMOGLOBIN 28.4 pg (27.0-31.0); MEAN CORPUSCULAR HGB CONC 33.4 g/dL (33.0-37.0); MEAN PLATELET VOLUME 10.7 fL (7.2-11.7); MONO # 1.5 K/uL (0.0-0.8); MONO % 8.1 % (0.0-10.0); NEUT # 16.3 K/uL (1.8-7.0); NEUT % 86.7 % (50.0-75.0); PLATELET COUNT 194 K/uL (130-400); RED CELL DISTRIBUTION WIDTH 14.4 % (11.5-14.5); WHITE BLOOD COUNT 18.8 K/uL (4.8-10.8)
[2017-12-27 07:04] LABS: ALB/GLOB RATIO 0.9 (1.0-2.1); ALBUMIN 2.8 g/dL (3.5-5.0); CALCIUM 7.3 mg/dl (8.6-10.4)
--- NOTE | 2017-12-27 07:43 | CP.PCM.PN ---
<ArisBenita - Last Filed: 12/27/17 07:44> Subjective - Date & Time of Evaluation Date of Evaluation: 12/27/17 Time of Evaluation: 07:00 - Subjective Subjective: GI Fellow PGY4 Progress Note Pt seen and evaluated at bedside, pt intubated s/p repair of perforation. Pt hemodynamically stable, with no pressor support. Pt with fevers last night and elevated WBC on multiple abx and antifungal therapy. Pt is s/p permacath RIJ, tolerating HD. Pt with an abscess around drain site that was I&D, SIXTO with bilious output. ROS:A 12pt ROS was unable to be obtained due to AMS Objective - Vital Signs/Intake and Output Vital Signs (last 24 hours): Temp Pulse Resp BP Pulse Ox 99.3 F 113 H 33 H 119/59 L 100 12/27/17 00:00 12/27/17 07:00 12/27/17 07:00 12/27/17 06:41 12/27/17 07:00 Intake and Output: 12/27/17 12/27/17 06:59 18:59 Intake Total 954 42 Output Total 980 Balance -26 42 - Medications Medications: Current Medications Acetaminophen (Tylenol 650mg/20.3ml Solution Ud) 650 mg PO Q6 PRN PRN Reason: Fever >100.4 F Last Admin: 12/26/17 20:30 Dose: 650 mg Albuterol/Ipratropium (Duoneb 3 Mg/0.5 Mg (3 Ml) Ud) 3 ml INH RQ4 PRN PRN Reason: Shortness of Breath Last Admin: 12/26/17 08:22 Dose: 3 ml Dextrose (Dextrose 50% Inj) 0 ml IV STAT PRN; Protocol PRN Reason: Hypoglycemia Protocol Dextrose (Glutose 15) 15 gm PO ONCE PRN; Protocol PRN Reason: Hypoglycemia Protocol Epoetin Juan F (Procrit) 8,000 unit IV [facility] [place] Stop: 12/30/17 09:01 Last Admin: 12/25/17 14:39 Dose: 8,000 unit Glucagon (Glucagen Diagnostic Kit) 1 mg IM STAT PRN; Protocol PRN Reason: Hypoglycemia Protocol Heparin Sodium (Porcine) (Heparin) 3,700 units IVP [facility] [place] Last Admin: 12/25/17 16:58 Dose: 3,700 units Hydromorphone HCl (Dilaudid) 0.5 mg IVP Q4H PRN PRN Reason: Pain, severe (8-10) Last Admin: 12/26/17 02:00 Dose: 0.5 mg Dextrose (Dextrose 5% In Water 1000 Ml) 1,000 mls @ 0 mls/hr IV .Q0M PRN; Protocol; Per Protocol PRN Reason: Hypoglycemia Protocol Meropenem 500 mg/ Sodium (Chloride) 100 mls @ 100 mls/hr IVPB Q12 FESTUS PRN Reason: Protocol Last Admin: 12/26/17 21:45 Dose: 100 mls/hr Micafungin Sodium 100 mg/ (Sodium Chloride) 100 mls @ 100 mls/hr IV Q24H [facility] PRN Reason: Protocol Last Admin: 12/26/17 09:21 Dose: 100 mls/hr Sodium Chloride 35 meq/Magnesium Sulfate 3 meq/Calcium Gluconate 4.5 meq/ Multivitamins/Vitamin C 10 ml/Heparin Sodium (Porcine) 1, 000 units/ Amino Acids 1,030.1663 mls @ 42 mls/hr IV .Q24H ONE Stop: 12/27/17 17:59 Last Admin: 12/26/17 17:36 Dose: 42 mls/hr Amikacin Sulfate 750 mg/ (Sodium Chloride) 253 mls @ 250 mls/hr IVPB Q48H [facility] PRN Reason: Protocol Last Admin: 12/26/17 20:45 Dose: 250 mls/hr Daptomycin 600 mg/ Sodium (Chloride) 100 mls @ 100 mls/hr IV Q48H [facility] PRN Reason: Protocol Stop: 12/31/17 19:31 Last Admin: 12/26/17 19:45 Dose: 100 mls/hr Potassium Chloride (Potassium Chloride 20 Meq/100 Ml) 20 meq in 100 mls @ 50 mls/hr IVPB ONCE ONE Stop: 12/27/17 09:32 Potassium Chloride (Potassium Chloride 20 Meq/100 Ml) 20 meq in 100 mls @ 50 mls/hr IVPB ONCE ONE Stop: 12/27/17 12:59 Insulin Human Regular (Novolin R) 0 unit SC Q6 FESTUS PRN Reason: Protocol Last Admin: 12/26/17 17:46 Dose: Not Given Pantoprazole Sodium (Protonix Inj) 40 mg IVP Q12H [facility] Last Admin: 12/26/17 21:49 Dose: 40 mg Saccharomyces Botajdii (Florastor) 250 mg PO Q12 FESTUS Last Admin: 12/26/17 21:56 Dose: 250 mg - Labs Labs: 12/27/17 06:39 12/27/17 06:40 PT 14.0 SECONDS (9.7-12.2) H 12/24/17 08:54 INR 1.3 12/24/17 08:54 APTT 40 SECONDS (21-34) H 12/18/17 12:39 - Constitutional Appears: Toxic, In Acute Distress, Chronically Ill - Head Exam Head Exam: ATRAUMATIC, NORMAL INSPECTION, NORMOCEPHALIC - Eye Exam Eye Exam: PERRL - ENT Exam ENT Exam: Mucous Membranes Dry Additional comments: ETT, NGT - Respiratory Exam Respiratory Exam: Rhonchi, Respiratory Distress - Cardiovascular Exam Cardiovascular Exam: Tachycardia, +S1, +S2 - GI/Abdominal Exam GI & Abdominal Exam: Distended, Soft, Tenderness, Normal Bowel Sounds Additional comments: ex lap, sixto drais with bilious output, cellulitis - Rectal Exam Rectal Exam: Deferred - Extremities Exam Extremities Exam: Pedal Edema - Neurological Exam Neurological Exam: Alert, Awake - Psychiatric Exam Psychiatric exam: Anxious - Skin Skin Exam: Dry, Intact, Normal Color, Warm Assessment and Plan - Assessment and Plan (Free Text) Assessment: This is a 77 year old female with past medical history of hypertension, COPD, breast cancer s/p lumpectomy that presented to same day 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 Pt is s/p EGD/EUS with EMR complicated by bleeding and perforation s/p clip placement x 7, epi injection, and bipolar cautery. 1. Duodenal perforation s/p surgical repair 2. 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 ARF, ATN on HD 4. Sepsis 5. VDRF 6. Abdominal cellulites, abscess 7. Pancreatitis? 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 and perforation that was treated with a combination of clipping, electrocautery and epinephrine - Duodenal perforation with no closure seen on repeat CT and UpperGI series, pt taken to OR with repair of perforation with jourdan patch - Anemia, H/H stable, monitor H/H, no active GI bleeding - Protonix BID - IV abx meropenema, amikacin and micfungin by ID - Pt clinically hemodynamically stable, no pressor - ARF likely ATN, s/p initiation of HD 12/20/17, monitor renal function - s/p RIJ permacath - Pt on TPN by ICU team would prefer enteral feedings, especially in setting of fever and elevated WBC - Pancultures - Abdominal wall abscess/cellulites s/p I&D - Pt may benefit from repeat abdominal imaging with PO Contrast with persistent fever, WBC, and purulent/bilious output via SIXTO drain - Appreciate surgical consult - Will continue to follow pt closely <Andrew Flynn - Last Filed: 12/27/17 15:51> Objective - Vital Signs/Intake and Output Vital Signs (last 24 hours): Temp Pulse Resp BP Pulse Ox 99.7 F H 98 H 25 H 114/57 L 100 12/27/17 11:00 12/27/17 14:43 12/27/17 14:43 12/27/17 14:43 12/27/17 14:43 Intake and Output: 12/27/17 12/27/17 06:59 18:59 Intake Total 954 554 Output Total 980 250 Balance -26 304 - Medications Medications: Current Medications Acetaminophen (Tylenol 650mg/20.3ml Solution Ud) 650 mg PO Q6 PRN PRN Reason: Fever >100.4 F Last Admin: 12/27/17 08:57 Dose: 650 mg Albumin Human (Albumin Human 25% (12.5 Gm/50 Ml)) 25 gm IV MWF PRN PRN Reason: Other Albuterol/Ipratropium (Duoneb 3 Mg/0.5 Mg (3 Ml) Ud) 3 ml INH RQ4 PRN PRN Reason: Shortness of Breath Last Admin: 12/27/17 07:59 Dose: 3 ml Dextrose (Dextrose 50% Inj) 0 ml IV STAT PRN; Protocol PRN Reason: Hypoglycemia Protocol Dextrose (Glutose 15) 15 gm PO ONCE PRN; Protocol PRN Reason: Hypoglycemia Protocol Epoetin Juan F (Procrit) 8,000 unit IV MWF [facility] Stop: 12/30/17 09:01 Last Admin: 12/25/17 14:39 Dose: 8,000 unit Glucagon (Glucagen Diagnostic Kit) 1 mg IM STAT PRN; Protocol PRN Reason: Hypoglycemia Protocol Heparin Sodium (Porcine) (Heparin) 3,700 units IVP MWF [facility] Last Admin: 12/25/17 16:58 Dose: 3,700 units Dextrose (Dextrose 5% In Water 1000 Ml) 1,000 mls @ 0 mls/hr IV .Q0M PRN; Protocol; Per Protocol PRN Reason: Hypoglycemia Protocol Meropenem 500 mg/ Sodium (Chloride) 100 mls @ 100 mls/hr IVPB Q12 FESTUS PRN Reason: Protocol Last Admin: 12/27/17 11:00 Dose: 100 mls/hr Micafungin Sodium 100 mg/ (Sodium Chloride) 100 mls @ 100 mls/hr IV Q24H [facility]US PRN Reason: Protocol Last Admin: 12/27/17 10:50 Dose: 100 mls/hr Sodium Chloride 35 meq/Magnesium Sulfate 3 meq/Calcium Gluconate 4.5 meq/ Multivitamins/Vitamin C 10 ml/Heparin Sodium (Porcine) 1, 000 units/ Amino Acids 1,030.1663 mls @ 42 mls/hr IV .Q24H ONE Stop: 12/27/17 17:59 Last Admin: 12/26/17 17:36 Dose: 42 mls/hr Amikacin Sulfate 750 mg/ (Sodium Chloride) 253 mls @ 250 mls/hr IVPB Q48H [facility] PRN Reason: Protocol Last Admin: 12/26/17 20:45 Dose: 250 mls/hr Daptomycin 600 mg/ Sodium (Chloride) 100 mls @ 100 mls/hr IV Q48H [facility] PRN Reason: Protocol Stop: 12/31/17 19:31 Last Admin: 12/26/17 19:45 Dose: 100 mls/hr Dexmedetomidine HCl 200 mcg/ (Sodium Chloride) 50 mls @ 5.75 mls/hr IV TITR PRN ; Protocol; 0.2 MCG/KG/HR PRN Reason: Agitation Octreotide Acetate 1,250 mcg/ (Sodium Chloride) 252.5 mls @ 5.05 mls/hr IV .Q24H FESTUS; 25 MCG/HR PRN Reason: Protocol Last Admin: 12/27/17 13:56 Dose: 5.05 mls/hr Insulin Human Regular (Novolin R) 0 unit SC Q6 FESTUS PRN Reason: Protocol Last Admin: 12/27/17 12:05 Dose: Not Given Pantoprazole Sodium (Protonix Inj) 40 mg IVP Q12H FESTUS Last Admin: 12/27/17 11:11 Dose: 40 mg Saccharomyces Boulardii (Florastor) 250 mg PO Q12 FESTUS Last Admin: 12/27/17 11:11 Dose: 250 mg - Labs Labs: 12/27/17 06:39 12/27/17 06:40 PT 14.0 SECONDS (9.7-12.2) H 12/24/17 08:54 INR 1.3 12/24/17 08:54 APTT 40 SECONDS (21-34) H 12/18/17 12:39 Attending/Attestation - Attestation I have personally seen and examined this patient.: Yes I have fully participated in the care of the patient.: Yes I have reviewed all pertinent clinical information, including history, physical exam and plan: Yes Notes (Text): 12/27/17 15:49 77 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 Today stat CT showed ongoing duodenal leak. S/ p endoscopy with placement of two OTSC at site of leak. Continue TPN. Wean from vent. Cont abx. OGT to LIS. Drains in place per surgery. Will follow.
[2017-12-27] MEDS: Albuterol-Ipratrop 3 mg / 0.5 (3 ml) UD INH PRN (07:59)
--- NOTE | 2017-12-27 08:01 | CP.PCM.PN ---
<Peewee [place] - Last Filed: 12/27/17 18:19> Subjective - Date & Time of Evaluation Date of Evaluation: 12/27/17 Time of Evaluation: 07:59 - Subjective Subjective: General Surgery Progress Note for Dr. Alatorre This 77M was seen and evaluated this AM at bedside. No acute events overnight. Pt opens eyes spontaneously, remains on the ventilator. The cullen drains have increased output from yesterday. the superior drain put out 245cc bilious output and the inferior drain put out 450cc bilious output. Objective - Vital Signs/Intake and Output Vital Signs (last 24 hours): Temp Pulse Resp BP Pulse Ox 99.7 F H 113 H 33 H 119/59 L 100 12/27/17 04:00 12/27/17 07:00 12/27/17 07:00 12/27/17 06:41 12/27/17 07:00 Intake and Output: 12/27/17 12/27/17 06:59 18:59 Intake Total 954 42 Output Total 980 Balance -26 42 - Medications Medications: Current Medications Acetaminophen (Tylenol 650mg/20.3ml Solution Ud) 650 mg PO Q6 PRN PRN Reason: Fever >100.4 F Last Admin: 12/26/17 20:30 Dose: 650 mg Albuterol/Ipratropium (Duoneb 3 Mg/0.5 Mg (3 Ml) Ud) 3 ml INH RQ4 PRN PRN Reason: Shortness of Breath Last Admin: 12/26/17 08:22 Dose: 3 ml Dextrose (Dextrose 50% Inj) 0 ml IV STAT PRN; Protocol PRN Reason: Hypoglycemia Protocol Dextrose (Glutose 15) 15 gm PO ONCE PRN; Protocol PRN Reason: Hypoglycemia Protocol Epoetin Juan F (Procrit) 8,000 unit IV [facility] Stop: 12/30/17 09:01 Last Admin: 12/25/17 14:39 Dose: 8,000 unit Glucagon (Glucagen Diagnostic Kit) 1 mg IM STAT PRN; Protocol PRN Reason: Hypoglycemia Protocol Heparin Sodium (Porcine) (Heparin) 3,700 units IVP [facility] Last Admin: 12/25/17 16:58 Dose: 3,700 units Hydromorphone HCl (Dilaudid) 0.5 mg IVP Q4H PRN PRN Reason: Pain, severe (8-10) Last Admin: 12/26/17 02:00 Dose: 0.5 mg Dextrose (Dextrose 5% In Water 1000 Ml) 1,000 mls @ 0 mls/hr IV .Q0M PRN; Protocol; Per Protocol PRN Reason: Hypoglycemia Protocol Meropenem 500 mg/ Sodium (Chloride) 100 mls @ 100 mls/hr IVPB Q12 [facility] PRN Reason: Protocol Last Admin: 12/26/17 21:45 Dose: 100 mls/hr Micafungin Sodium 100 mg/ (Sodium Chloride) 100 mls @ 100 mls/hr IV Q24H [facility] PRN Reason: Protocol Last Admin: 12/26/17 09:21 Dose: 100 mls/hr Sodium Chloride 35 meq/Magnesium Sulfate 3 meq/Calcium Gluconate 4.5 meq/ Multivitamins/Vitamin C 10 ml/Heparin Sodium (Porcine) 1, 000 units/ Amino Acids 1,030.1663 mls @ 42 mls/hr IV .Q24H ONE Stop: 12/27/17 17:59 Last Admin: 12/26/17 17:36 Dose: 42 mls/hr Amikacin Sulfate 750 mg/ (Sodium Chloride) 253 mls @ 250 mls/hr IVPB Q48H [facility] PRN Reason: Protocol Last Admin: 12/26/17 20:45 Dose: 250 mls/hr Daptomycin 600 mg/ Sodium (Chloride) 100 mls @ 100 mls/hr IV Q48H [facility] PRN Reason: Protocol Stop: 12/31/17 19:31 Last Admin: 12/26/17 19:45 Dose: 100 mls/hr Potassium Chloride (Potassium Chloride 20 Meq/100 Ml) 20 meq in 100 mls @ 50 mls/hr IVPB ONCE ONE Stop: 12/27/17 09:32 Potassium Chloride (Potassium Chloride 20 Meq/100 Ml) 20 meq in 100 mls @ 50 mls/hr IVPB ONCE ONE Stop: 12/27/17 12:59 Insulin Human Regular (Novolin R) 0 unit SC Q6 [facility] PRN Reason: Protocol Last Admin: 12/26/17 17:46 Dose: Not Given Pantoprazole Sodium (Protonix Inj) 40 mg IVP Q12H [facility] Last Admin: 12/26/17 21:49 Dose: 40 mg Saccharomyces Boulardii (Florastor) 250 mg PO Q12 [facility] Last Admin: 12/26/17 21:56 Dose: 250 mg - Labs Labs: 12/27/17 06:39 12/27/17 06:40 PT 14.0 SECONDS (9.7-12.2) H 12/24/17 08:54 INR 1.3 12/24/17 08:54 APTT 40 SECONDS (21-34) H 12/18/17 12:39 - Constitutional Appears: Non-toxic, No Acute Distress - Head Exam Head Exam: ATRAUMATIC, NORMOCEPHALIC - Eye Exam Eye Exam: EOMI, Normal appearance - ENT Exam ENT Exam: Mucous Membranes Moist - Respiratory Exam Respiratory Exam: NORMAL BREATHING PATTERN - Cardiovascular Exam Cardiovascular Exam: +S1, +S2 - GI/Abdominal Exam GI & Abdominal Exam: Soft. absent: Distended, Firm, Guarding, Rigid Additional comments: Superior Cullen 245cc/24hr, Inferior Cullen 450cc/24hr, Abscess packing changed now with bilious output, Midline incision well approximated with gayle in place, skin adjacent to umbilical stables dark, inferior to incision area of fluctuant. - Neurological Exam Neurological Exam: Alert, Awake - Psychiatric Exam Psychiatric exam: Normal Affect, Normal Mood - Skin Skin Exam: Dry, Intact Assessment and Plan - Assessment and Plan (Free Text) Assessment: 77F s/p repair of duodenal perforation with jourdan patch POD 10 CT : acute pancreatitis, atelectasis afebrile Persistent leukocytosis Plan: - drain management - wean and extubate - Dialysis as needed - IVF - NPO - CT with po contrast Further recs per Dr. Celi [place] PGY2 <Deion Alatorre B - Last Filed: 01/05/18 19:37> Objective - Vital Signs/Intake and Output Vital Signs (last 24 hours): Temp Pulse Resp BP Pulse Ox 97.8 F 94 H 28 H 126/52 L 100 01/01/18 17:00 01/01/18 19:34 01/01/18 19:34 01/01/18 19:35 01/01/18 19:34 - Labs Labs: 01/01/18 06:19 01/01/18 06:19 PT 14.0 SECONDS (9.7-12.2) H 12/24/17 08:54 INR 1.3 12/24/17 08:54 APTT 40 SECONDS (21-34) H 12/18/17 12:39 Attending/Attestation - Attestation I have personally seen and examined this patient.: Yes I have fully participated in the care of the patient.: Yes I have reviewed all pertinent clinical information, including history, physical exam and plan: Yes Notes (Text): Pt was seen and examined at bedside Agree with above note and assessment CT A/P with Contrast is suggestive of leak Drain is adequately draining leak Conservative management Plan d.w Daughter in detail No need for any intervention at present Plan d.w GI C/W IV antibiotics Plan d.w ICU team in detail Risk and benefit explained in detail.
[2017-12-27 08:13] LABS: BANDS 6 % (0-2); LYMPHOCYTE 3 % (20-40); MONOCYTE 8 % (0-10); NEUTROPHIL 81 % (50-75); PLATELET ESTIMATE NORMAL (NORMAL); REACTIVE LYMPHOCYTES 2 % (0-0); TOTAL CELLS COUNTED 100
--- NOTE | 2017-12-27 08:23 | RAD ---
HISTORY: intubated COMPARISON: 12/26/2017. FINDINGS: Endotracheal tube terminates 3.5 cm proximal to the kathy. The nasogastric tube terminates in the stomach. The right-sided dialysis catheter terminates in the SVC. LUNGS: The lungs are well inflated. There is mild pulmonary venous congestion. There is stable discoid atelectasis in the left upper lobe. PLEURA: No significant pleural effusion identified, no pneumothorax apparent. CARDIOVASCULAR: Normal. OSSEOUS STRUCTURES: No significant abnormalities. VISUALIZED UPPER ABDOMEN: Normal. OTHER FINDINGS: None. IMPRESSION: No active pulmonary disease. Stable position of support line and tubes.
[2017-12-27] MEDS: Acetaminophen 650mg/20.3ml solution UD PO PRN (08:57)
--- NOTE | 2017-12-27 09:49 | CP.CCUPN ---
<Estefania Veliz - Last Filed: 12/27/17 09:46> CCU Subjective - Physician Review Subjective (Free Text): Patient seen and examined at bedside. Intubated on PRVC 14/40/500/5, not on sedation. CPAP trials. Patient is for CT scan with PO contrast to reevaluate. CCU Objective - Vital Signs / Intake & Output Vital Signs (Last 4 hours): Vital Signs Temp Pulse Resp BP Pulse Ox 12/27/17 08:00 100.8 F H 12/27/17 07:00 113 H 33 H 100 12/27/17 06:41 108 H 33 H 119/59 L 100 12/27/17 06:00 106 H 34 H 100 Intake and Output (Last 8hrs): Intake & Output 12/26/17 12/27/17 12/27/17 22:59 06:59 14:59 Intake Total 686 436 134 Output Total 805 600 30 Balance -119 -164 104 Weight 253 lb 8.505 oz Intake: Intake, IV Amount 686 436 84 Right PICC 350 100 right picc 2nd port 336 336 84 Other 50 Output: Drainage 555 400 KORI 1 195 100 KORI 2 360 100 Right Nare 200 Urine 250 200 30 Urethral (Bruce) 250 200 30 Other: # Bowel Movements 1 - Physical Exam Head: Positive for: Atraumatic, Normocephalic, Ecchymosis Extroacular Muscles: Positive for: EOMI Conjunctiva: Positive for: Normal Mouth: Positive for: Other (INTUBATED) Nose (External): Positive for: Other (NGT in place ) Respiratory/Chest: Positive for: Clear to Auscultation. Negative for: Decreased Breath Sounds Cardiovascular: Positive for: Regular Rate and Rhythm Abdomen: Positive for: Tenderness, Normal Bowel Sounds, Other (KORI drains in place, s/p I & D 12/25/17 - dressing clean, dry, intact ). Negative for: Distention Upper Extremity: Positive for: Normal Inspection, NORMAL PULSES, Neurovascularly Intact, Capillary Refill < 2s Lower Extremity: Positive for: Normal Inspection, NORMAL PULSES, Neurovascularly Intact, Capillary Refill < 2 s Neurological: Positive for: GCS=15, CN II-XII Intact Skin: Positive for: Warm, Dry, Normal Color Psychiatric: Positive for: Alert - Medications Active Medications: Active Medications Generic Name Dose Route Start Last Admin Trade Name Freq PRN Reason Stop Dose Admin Acetaminophen 650 mg 12/26/17 20:15 12/27/17 08:57 Tylenol 650mg/20.3ml Solution Ud PO 650 mg Q6 PRN Administration Fever >100.4 F Albuterol/Ipratropium 3 ml 12/16/17 12:03 12/27/17 07:59 Duoneb 3 Mg/0.5 Mg (3 Ml) Ud INH 3 ml RQ4 PRN Administration Shortness of Breath Dextrose 0 ml 12/16/17 12:08 Dextrose 50% Inj IV STAT PRN Hypoglycemia Protocol Protocol Dextrose 15 gm 12/16/17 12:08 Glutose 15 PO ONCE PRN Hypoglycemia Protocol Protocol Epoetin Juan F 8,000 unit 12/25/17 15:00 12/25/17 14:39 Procrit IV 12/30/17 09:01 8,000 unit MWF FESTUS Administration Glucagon 1 mg 12/16/17 12:08 Glucagen Diagnostic Kit IM STAT PRN Hypoglycemia Protocol Protocol Heparin Sodium (Porcine) 3,700 units 12/25/17 16:46 12/25/17 16:58 Heparin IVP 3,700 units MWF FESTUS Administration Dextrose 1,000 mls @ 0 mls/hr 12/16/17 12:08 Dextrose 5% In Water 1000 Ml IV .Q0M PRN Hypoglycemia Protocol Protocol Per Protocol Meropenem 500 mg/ Sodium 100 mls @ 100 mls/hr 12/18/17 10:00 12/26/17 21:45 Chloride IVPB 100 mls/hr Q12 FESTUS Administration Protocol Micafungin Sodium 100 mg/ 100 mls @ 100 mls/hr 12/21/17 10:00 12/26/17 09:21 Sodium Chloride IV 100 mls/hr Q24H FESTUS Administration Protocol Sodium Chloride 35 meq/ 1,030.1663 mls @ 42 mls/hr 12/26/17 18:00 12/26/17 17 :36 Magnesium Sulfate 3 meq/ IV 12/27/17 17:59 42 mls/hr Calcium Gluconate 4.5 meq/ .Q24H ONE Administration Multivitamins/Vitamin C 10 ml/ Heparin Sodium (Porcine) 1, 000 units/ Amino Acids Amikacin Sulfate 750 mg/ 253 mls @ 250 mls/hr 12/26/17 20:30 12/26/17 20:45 Sodium Chloride IVPB 250 mls/hr Q48H FESTUS Administration Protocol Daptomycin 600 mg/ Sodium 100 mls @ 100 mls/hr 12/26/17 19:30 12/26/17 19:45 Chloride IV 12/31/17 19:31 100 mls/hr Q48H FESTUS Administration Protocol Potassium Chloride 20 meq in 100 mls @ 50 mls/hr 12/27/17 08:30 12/27/17 08: 32 Potassium Chloride 20 Meq/100 Ml IVPB 12/27/17 10:29 50 mls/hr ONCE ONE Administration Potassium Chloride 20 meq in 100 mls @ 50 mls/hr 12/27/17 11:00 Potassium Chloride 20 Meq/100 Ml IVPB 12/27/17 12:59 ONCE ONE Insulin Human Regular 0 unit 12/19/17 00:00 12/26/17 17:46 Novolin R SC Not Given Q6 FESTUS Protocol Pantoprazole Sodium 40 mg 12/23/17 22:00 12/26/17 21:49 Protonix Inj IVP 40 mg Q12H FESTUS Administration Saccharomyces Boulardii 250 mg 12/23/17 22:00 12/26/17 21:56 Florastor PO 250 mg Q12 FESTUS Administration - Patient Studies Lab Studies: Microbiology Studies 12/24/17 09:41 Blood Culture - Preliminary Blood-Thru Central Line NO GROWTH AFTER 3 DAYS 12/24/17 14:20 Blood Culture - Preliminary Blood-Thru Central Line NO GROWTH AFTER 48 HOURS 12/25/17 17:05 Gram Stain - Preliminary Abdomen Wound Culture - Preliminary NO GROWTH AFTER 24 HOURS Lab Studies 12/27/17 12/27/17 12/27/17 Range/Units 06:40 06:39 06:34 WBC 18.8 H (4.8-10.8) K/uL RBC 3.10 L (3.80-5.20) Mil/uL Hgb 8.8 L (11.0-16.0) g/dL Hct 26.3 L (34.0-47.0) % MCV 84.9 (81.0-99.0) fL MCH 28.4 (27.0-31.0) pg MCHC 33.4 (33.0-37.0) g/dL RDW 14.4 (11.5-14.5) % Plt Count 194 (130-400) K/uL MPV 10.7 (7.2-11.7) fL Neut % (Auto) 86.7 H (50.0-75.0) % Lymph % (Auto) 4.3 L (20.0-40.0) % Swisher % (Auto) 8.1 (0.0-10.0) % Eos % (Auto) 0.8 (0.0-4.0) % Baso % (Auto) 0.1 (0.0-2.0) % Neut # (Auto) 16.3 H (1.8-7.0) K/uL Lymph # (Auto) 0.8 L (1.0-4.3) K/uL Swisher # (Auto) 1.5 H (0.0-0.8) K/uL Eos # (Auto) 0.2 (0.0-0.7) K/uL Baso # (Auto) 0.0 (0.0-0.2) K/uL Neutrophils % (Manual) 81 H (50-75) % Band Neutrophils % 6 H (0-2) % Lymphocytes % (Manual) 3 L (20-40) % Reactive Lymphs % 2 H (0-0) % Monocytes % (Manual) 8 (0-10) % Platelet Estimate Normal (NORMAL) RBC Morphology Normal Puncture Site pCO2 (35-45) mm/Hg pO2 (80-100) mm/Hg HCO3 (21-28) mmol/L ABG pH (7.35-7.45) ABG Total CO2 (22-28) mmol/L ABG O2 Saturation (95-98) % ABG Base Excess (-2.0-3.0) mmol/L ABG Hemoglobin (11.7-17.4) g/dL ABG Carboxyhemoglobin (0.5-1.5) % POC ABG HHb (Measured) (0.0-5.0) % ABG Methemoglobin (0.0-3.0) % Richard Test A-a O2 Difference mm/Hg Respiratory Index Hgb O2 Saturation (95.0-98.0) % Vent Mode Mechanical Rate FiO2 % Tidal Volume PEEP Sodium 138 (132-148) mmol/L Potassium 3.1 L (3.6-5.2) mmol/L Chloride 103 (98-107) mmol/L Carbon Dioxide 22 (22-30) mmol/L Anion Gap 17 (10-20) BUN 70 H (7-17) mg/dL Creatinine 5.7 H (0.7-1.2) mg/dL Est GFR ( Amer) 9 Est GFR (Non-Af Amer) 7 POC Glucose (mg/dL) 176 H (65-110) mg/dL Random Glucose 157 H (65-105) mg/dL Calcium 7.3 L (8.6-10.4) mg/dl Phosphorus 3.3 (2.5-4.5) mg/dL Magnesium 2.1 (1.6-2.3) mg/dL Total Bilirubin 0.6 (0.2-1.3) mg/dL AST 33 (14-36) U/L ALT 23 (9-52) U/L Alkaline Phosphatase 79 (38-126) U/L Total Protein 5.9 L (6.3-8.3) g/dL Albumin 2.8 L (3.5-5.0) g/dL Globulin 3.1 (2.2-3.9) gm/dL Albumin/Globulin Ratio 0.9 L (1.0-2.1) Amylase (30-110) U/L Lipase (23-300) U/L 12/27/17 12/27/17 12/26/17 Range/Units 05:25 00:17 20:31 WBC (4.8-10.8) K/uL RBC (3.80-5.20) Mil/uL Hgb (11.0-16.0) g/dL Hct (34.0-47.0) % MCV (81.0-99.0) fL MCH (27.0-31.0) pg MCHC (33.0-37.0) g/dL RDW (11.5-14.5) % Plt Count (130-400) K/uL MPV (7.2-11.7) fL Neut % (Auto) (50.0-75.0) % Lymph % (Auto) (20.0-40.0) % Swisher % (Auto) (0.0-10.0) % Eos % (Auto) (0.0-4.0) % Baso % (Auto) (0.0-2.0) % Neut # (Auto) (1.8-7.0) K/uL Lymph # (Auto) (1.0-4.3) K/uL Swisher # (Auto) (0.0-0.8) K/uL Eos # (Auto) (0.0-0.7) K/uL Baso # (Auto) (0.0-0.2) K/uL Neutrophils % (Manual) (50-75) % Band Neutrophils % (0-2) % Lymphocytes % (Manual) (20-40) % Reactive Lymphs % (0-0) % Monocytes % (Manual) (0-10) % Platelet Estimate (NORMAL) RBC Morphology Puncture Site R rad pCO2 28 L (35-45) mm/Hg pO2 83 (80-100) mm/Hg HCO3 22.4 (21-28) mmol/L ABG pH 7.46 H (7.35-7.45) ABG Total CO2 20.8 L (22-28) mmol/L ABG O2 Saturation 98.7 H (95-98) % ABG Base Excess -3.2 L (-2.0-3.0) mmol/L ABG Hemoglobin 8.9 L (11.7-17.4) g/dL ABG Carboxyhemoglobin 1.6 H (0.5-1.5) % POC ABG HHb (Measured) 1.3 (0.0-5.0) % ABG Methemoglobin 1.3 (0.0-3.0) % Richard Test Pos A-a O2 Difference 167.0 mm/Hg Respiratory Index 2.0 Hgb O2 Saturation 95.8 (95.0-98.0) % Vent Mode Prvc Mechanical Rate 14 FiO2 40.0 % Tidal Volume 450 PEEP 5 Sodium (132-148) mmol/L Potassium (3.6-5.2) mmol/L Chloride (98-107) mmol/L Carbon Dioxide (22-30) mmol/L Anion Gap (10-20) BUN (7-17) mg/dL Creatinine (0.7-1.2) mg/dL Est GFR ( Amer) Est GFR (Non-Af Amer) POC Glucose (mg/dL) 154 H (65-110) mg/dL Random Glucose (65-105) mg/dL Calcium (8.6-10.4) mg/dl Phosphorus (2.5-4.5) mg/dL Magnesium (1.6-2.3) mg/dL Total Bilirubin (0.2-1.3) mg/dL AST (14-36) U/L ALT (9-52) U/L Alkaline Phosphatase (38-126) U/L Total Protein (6.3-8.3) g/dL Albumin (3.5-5.0) g/dL Globulin (2.2-3.9) gm/dL Albumin/Globulin Ratio (1.0-2.1) Amylase 397 H (30-110) U/L Lipase 3899 H (23-300) U/L 12/26/17 12/26/17 Range/Units 17:45 11:39 WBC (4.8-10.8) K/uL RBC (3.80-5.20) Mil/uL Hgb (11.0-16.0) g/dL Hct (34.0-47.0) % MCV (81.0-99.0) fL MCH (27.0-31.0) pg MCHC (33.0-37.0) g/dL RDW (11.5-14.5) % Plt Count (130-400) K/uL MPV (7.2-11.7) fL Neut % (Auto) (50.0-75.0) % Lymph % (Auto) (20.0-40.0) % Swisher % (Auto) (0.0-10.0) % Eos % (Auto) (0.0-4.0) % Baso % (Auto) (0.0-2.0) % Neut # (Auto) (1.8-7.0) K/uL Lymph # (Auto) (1.0-4.3) K/uL Swisher # (Auto) (0.0-0.8) K/uL Eos # (Auto) (0.0-0.7) K/uL Baso # (Auto) (0.0-0.2) K/uL Neutrophils % (Manual) (50-75) % Band Neutrophils % (0-2) % Lymphocytes % (Manual) (20-40) % Reactive Lymphs % (0-0) % Monocytes % (Manual) (0-10) % Platelet Estimate (NORMAL) RBC Morphology Puncture Site pCO2 (35-45) mm/Hg pO2 (80-100) mm/Hg HCO3 (21-28) mmol/L ABG pH (7.35-7.45) ABG Total CO2 (22-28) mmol/L ABG O2 Saturation (95-98) % ABG Base Excess (-2.0-3.0) mmol/L ABG Hemoglobin (11.7-17.4) g/dL ABG Carboxyhemoglobin (0.5-1.5) % POC ABG HHb (Measured) (0.0-5.0) % ABG Methemoglobin (0.0-3.0) % Richard Test A-a O2 Difference mm/Hg Respiratory Index Hgb O2 Saturation (95.0-98.0) % Vent Mode Mechanical Rate FiO2 % Tidal Volume PEEP Sodium (132-148) mmol/L Potassium (3.6-5.2) mmol/L Chloride (98-107) mmol/L Carbon Dioxide (22-30) mmol/L Anion Gap (10-20) BUN (7-17) mg/dL Creatinine (0.7-1.2) mg/dL Est GFR ( Amer) Est GFR (Non-Af Amer) POC Glucose (mg/dL) 134 H 151 H (65-110) mg/dL Random Glucose (65-105) mg/dL Calcium (8.6-10.4) mg/dl Phosphorus (2.5-4.5) mg/dL Magnesium (1.6-2.3) mg/dL Total Bilirubin (0.2-1.3) mg/dL AST (14-36) U/L ALT (9-52) U/L Alkaline Phosphatase (38-126) U/L Total Protein (6.3-8.3) g/dL Albumin (3.5-5.0) g/dL Globulin (2.2-3.9) gm/dL Albumin/Globulin Ratio (1.0-2.1) Amylase (30-110) U/L Lipase (23-300) U/L Laboratory Results - last 24 hr 12/26/17 12/26/17 12/26/17 11:39 17:45 20:31 WBC RBC Hgb Hct MCV MCH MCHC RDW Plt Count MPV Neut % (Auto) Lymph % (Auto) Swisher % (Auto) Eos % (Auto) Baso % (Auto) Neut # (Auto) Lymph # (Auto) Swisher # (Auto) Eos # (Auto) Baso # (Auto) Neutrophils % (Manual) Band Neutrophils % Lymphocytes % (Manual) Reactive Lymphs % Monocytes % (Manual) Platelet Estimate RBC Morphology Puncture Site pCO2 pO2 HCO3 ABG pH ABG Total CO2 ABG O2 Saturation ABG Base Excess ABG Hemoglobin ABG Carboxyhemoglobin POC ABG HHb (Measured) ABG Methemoglobin Richard Test A-a O2 Difference Respiratory Index Hgb O2 Saturation Vent Mode Mechanical Rate FiO2 Tidal Volume PEEP Sodium Potassium Chloride Carbon Dioxide Anion Gap BUN Creatinine Est GFR ( Amer) Est GFR (Non-Af Amer) POC Glucose (mg/dL) 151 H 134 H Random Glucose Calcium Phosphorus Magnesium Total Bilirubin AST ALT Alkaline Phosphatase Total Protein Albumin Globulin Albumin/Globulin Ratio Amylase 397 H Lipase 3899 H 12/27/17 12/27/17 12/27/17 00:17 05:25 06:34 WBC RBC Hgb Hct MCV MCH MCHC RDW Plt Count MPV Neut % (Auto) Lymph % (Auto) Swisher % (Auto) Eos % (Auto) Baso % (Auto) Neut # (Auto) Lymph # (Auto) Swisher # (Auto) Eos # (Auto) Baso # (Auto) Neutrophils % (Manual) Band Neutrophils % Lymphocytes % (Manual) Reactive Lymphs % Monocytes % (Manual) Platelet Estimate RBC Morphology Puncture Site R rad pCO2 28 L pO2 83 HCO3 22.4 ABG pH 7.46 H ABG Total CO2 20.8 L ABG O2 Saturation 98.7 H ABG Base Excess -3.2 L ABG Hemoglobin 8.9 L ABG Carboxyhemoglobin 1.6 H POC ABG HHb (Measured) 1.3 ABG Methemoglobin 1.3 Richard Test Pos A-a O2 Difference 167.0 Respiratory Index 2.0 Hgb O2 Saturation 95.8 Vent Mode Prvc Mechanical Rate 14 FiO2 40.0 Tidal Volume 450 PEEP 5 Sodium Potassium Chloride Carbon Dioxide Anion Gap BUN Creatinine Est GFR ( Amer) Est GFR (Non-Af Amer) POC Glucose (mg/dL) 154 H 176 H Random Glucose Calcium Phosphorus Magnesium Total Bilirubin AST ALT Alkaline Phosphatase Total Protein Albumin Globulin Albumin/Globulin Ratio Amylase Lipase 12/27/17 12/27/17 06:39 06:40 WBC 18.8 H RBC 3.10 L Hgb 8.8 L Hct 26.3 L MCV 84.9 MCH 28.4 MCHC 33.4 RDW 14.4 Plt Count 194 MPV 10.7 Neut % (Auto) 86.7 H Lymph % (Auto) 4.3 L Swisher % (Auto) 8.1 Eos % (Auto) 0.8 Baso % (Auto) 0.1 Neut # (Auto) 16.3 H Lymph # (Auto) 0.8 L Swisher # (Auto) 1.5 H Eos # (Auto) 0.2 Baso # (Auto) 0.0 Neutrophils % (Manual) 81 H Band Neutrophils % 6 H Lymphocytes % (Manual) 3 L Reactive Lymphs % 2 H Monocytes % (Manual) 8 Platelet Estimate Normal RBC Morphology Normal Puncture Site pCO2 pO2 HCO3 ABG pH ABG Total CO2 ABG O2 Saturation ABG Base Excess ABG Hemoglobin ABG Carboxyhemoglobin POC ABG HHb (Measured) ABG Methemoglobin Richard Test A-a O2 Difference Respiratory Index Hgb O2 Saturation Vent Mode Mechanical Rate FiO2 Tidal Volume PEEP Sodium 138 Potassium 3.1 L Chloride 103 Carbon Dioxide 22 Anion Gap 17 BUN 70 H Creatinine 5.7 H Est GFR ( Amer) 9 Est GFR (Non-Af Amer) 7 POC Glucose (mg/dL) Random Glucose 157 H Calcium 7.3 L Phosphorus 3.3 Magnesium 2.1 Total Bilirubin 0.6 AST 33 ALT 23 Alkaline Phosphatase 79 Total Protein 5.9 L Albumin 2.8 L Globulin 3.1 Albumin/Globulin Ratio 0.9 L Amylase Lipase Fingerstick Blood Sugar Results: 142 Critical Care Progress Note - Nutrition Nutrition: Nutrition Category Date Time Status NPO Diet [DIET] Diets 12/20/17 Dinner Active Assessment/Plan - Assessment and Plan (Free Text) Assessment: This is a 77yo female with history of hypertension, COPD, breast cancer s/p lumpectomy that presented to same day 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 During the procedure, patient experienced a significant amount of bleeding which was treated with a combination of clipping , electrocautery and epinephrine. Bleeding was significantly reduced however patient was subsequently admitted to ICU for close observation. Patient was admitted to ICU due to SBP 220/140s initially on cardene drip x 1 - 2 hours. Returned to OR 12/18/17 due to increasing free air noted on repeat CT scan ; s/p ex lap primary repair of duodenal perforation, jourdan patch. Omentectomy. Picc line placed 12/20/17 Right shiley catheter placed - 12/20 - removed 12/24. Permacath placed 12/25. Dialysis 12/25 and 1 unit PRBC transfused --- > Dialysis , 12/21, 12/25 12/25 bedside I & D of abdominal wall abscess, wound cultures sent - no growth. Pending repeat CT Scan with PO contrast. 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 Alatorre - Previous hemorrhage - stabilized with a combination of clipping, electrocautery and epinephrine - PPI Q12 - Ct chest, abdomen, pelvis 2/2 abdominal pain and guarding on exam: Mild increase in the extent of pneumoperitoneum. Increasing ascites. Extensive gas adjacent to 2nd duodenum and nasim hepatis. Status post cholecystectomy. Nasogastric tube. Fluid in retroperitoneum and gas in perinephric space on right side. Cannot rule out pancreatitis. Please correlate. Trace right pleural effusion. No pulmonary infiltrate. - Upper GI series - Free air noted - As per surgery patient is for OR due to increasing free air ; s/p ex lap primary repair of duodenal perforation, jourdan patch. Omentectomy. 12/18 - Pending repeat CT Scan with PO contrast A: Pancreatitis? - Noted on CT C/ab/pel: Limited study. There are linear atelectatic and or scarring changes seen in the right and left upper lobes as well as the left lower lobe. Cholecystectomy with in situ drainage catheter. . Findings are consistent with acute pancreatitis with peripancreatic infiltration and small amount of fluid extending into the right para renal space. - Lipase, Amylase ordered - HELD TPN A: Pancreatic nodule - Questionable 9 mm rounded fluid density mass in the pancreatic body. This was not clearly appreciated on prior CT examination of 12/16/2017. Further evaluation is advised when clinically feasible with multiphasic contrast- enhanced CT. A: Transaminitis, Elevated T. Bili - RESOLVED - Viral hepatitis - negative - Abominal US - Diffuse increased echogenicity in the liver may reflect hepatic steatosis however parenchymal infectious/ inflammatory etiologies cannot be entirely excluded. Clinical and laboratory correlation is advised. Mild perihepatic ascites. Endo: A: Thyroid Nodule - There is a 1.9 cm mass in the lower pole of the left thyroid lobe. - Correlate with thyroid ultrasound examination. A: Hypocalcemia - Repleting A: IGT - HgA1c 5.9 Renal: A: ARF - Improving with HD - 2/2 ATN - MWF schedule - Avoid nephrotoxic drugs - Abdominal US- no sign of renal obstruction - Inserted bruce - Right Shiley catheter inserted 12/20- removed 12/24 - Dialysis 12/20, 12/21, 12/23, 12/25 - Permacath placed 12/25/17 ID: A: SIRS, Bandemia - resolving ID Consulted - Dr. Quinonez - Afebrile, vitals stable, no leukocytosis, no source of infection - Patient was prince-cultured 12/17/17 - all negative - Bandemia increasing- 61, Procal - 12.04 --> 20, lactate 2.4--> 1.7 - Meropenem renally dosed started 12/18/17, Micafungin 100mg Q12 started 12/21, started Amikacin 750mg Q48H and Daptomycin 600mg Q48H - 12/26 A: Fever - All Cultures negative to date - Right dialysis catheter removed 12/24 - culture negative to date - Repeat cultures -negative to date A: Abdominal wall abscess - S/P I&D 12/25/17 - Wound culture - no growth A: Diarrhea - Likely 2/2 to abx - Diff- negative, probiotic started Heme/ Onc: A: Anemia - Hemoglobin baseline -14 - CT chest, ab, pelvis - no evidence of internal hemorrhage - S/P 1 unit 12/20, 2nd unit transfused 12/25 - Continue to monitor A: Hx breast cancer s/p lumpectomy Prophylaxis - PPI Q12 - SCDs, VTE c/i post op / concern for bleeding - Right PICC line 12/20, Right shiley cath inserted 12/20 - REMOVED 12/24, R Permacath placed 12/25 - Currently on TPN DW Estefania Sosa DO, PGY-1 <Milton Garcia M - Last Filed: 12/28/17 11:18> CCU Objective - Vital Signs / Intake & Output Vital Signs (Last 4 hours): Vital Signs Temp Pulse Resp BP Pulse Ox 12/28/17 10:00 97 H 28 H 99 12/28/17 09:31 101.3 F H 12/28/17 09:13 99 H 22 103/46 L 99 12/28/17 09:00 103 H 29 H 99 12/28/17 08:13 102 H 28 H 100/55 L 99 12/28/17 08:00 101.3 F H 101 H 28 H 100 12/28/17 07:13 96 H 25 H 97/47 L 99 Intake and Output (Last 8hrs): Intake & Output 12/27/17 12/28/17 12/28/17 22:59 06:59 14:59 Intake Total 440 840 220 Output Total 380 660 170 Balance 60 180 50 Weight 253 lb 8.505 oz Intake: Intake, IV Amount 440 840 220 Right Distal Port PICC 300 800 100 Right PICC 40 40 20 right picc 2nd port 100 100 Output: Drainage 380 560 170 KORI 1 100 360 100 KORI 2 80 200 70 mouth OGT 200 Urine 100 0 Urine, Voided 100 0 Other: # Bowel Movements 1 - Medications Active Medications: Active Medications Generic Name Dose Route Start Last Admin Trade Name Freq PRN Reason Stop Dose Admin Acetaminophen 650 mg 12/28/17 10:14 Tylenol 650 Mg Supp SC Q6 PRN Fever >100.4 F Albumin Human 25 gm 12/27/17 14:37 12/27/17 15:45 Albumin Human 25% (12.5 Gm/50 Ml) IV 25 gm MWF PRN Administration Other Albuterol/Ipratropium 3 ml 12/28/17 12:00 Duoneb 3 Mg/0.5 Mg (3 Ml) Ud INH RQ4 FESTUS Dextrose 0 ml 12/16/17 12:08 Dextrose 50% Inj IV STAT PRN Hypoglycemia Protocol Protocol Dextrose 15 gm 12/16/17 12:08 Glutose 15 PO ONCE PRN Hypoglycemia Protocol Protocol Epoetin Juan F 8,000 unit 12/25/17 15:00 12/27/17 17:40 Procrit IV 12/30/17 09:01 8,000 unit MWF FESTUS Administration Glucagon 1 mg 12/16/17 12:08 Glucagen Diagnostic Kit IM STAT PRN Hypoglycemia Protocol Protocol Heparin Sodium (Porcine) 3,700 units 12/25/17 16:46 12/27/17 17:40 Heparin IVP 3,700 units MWF FESTUS Administration Dextrose 1,000 mls @ 0 mls/hr 12/16/17 12:08 Dextrose 5% In Water 1000 Ml IV .Q0M PRN Hypoglycemia Protocol Protocol Per Protocol Meropenem 500 mg/ Sodium 100 mls @ 100 mls/hr 12/18/17 10:00 12/28/17 09:31 Chloride IVPB 100 mls/hr Q12 FESTUS Administration Protocol Micafungin Sodium 100 mg/ 100 mls @ 100 mls/hr 12/21/17 10:00 12/28/17 09:31 Sodium Chloride IV 100 mls/hr Q24H FESTUS Administration Protocol Amikacin Sulfate 750 mg/ 253 mls @ 250 mls/hr 12/26/17 20:30 12/26/17 20:45 Sodium Chloride IVPB 250 mls/hr Q48H FESTUS Administration Protocol Daptomycin 600 mg/ Sodium 100 mls @ 100 mls/hr 12/26/17 19:30 12/26/17 19:45 Chloride IV 12/31/17 19:31 100 mls/hr Q48H FESTUS Administration Protocol Dexmedetomidine HCl 200 mcg/ 50 mls @ 5.75 mls/hr 12/27/17 10:30 Sodium Chloride IV TITR PRN Agitation Protocol 0.2 MCG/KG/HR Octreotide Acetate 1,250 mcg/ 252.5 mls @ 10.1 mls/hr 12/28/17 10:13 Sodium Chloride IV .Q24H FESTUS Protocol 50 MCG/HR Insulin Human Regular 0 unit 12/19/17 00:00 12/28/17 06:40 Novolin R SC Not Given Q6 FESTUS Protocol Pantoprazole Sodium 40 mg 12/23/17 22:00 12/28/17 09:31 Protonix Inj IVP 40 mg Q12H FESTUS Administration Saccharomyces Boulardii 250 mg 12/23/17 22:00 12/28/17 09:31 Florastor PO 250 mg Q12 FESTUS Administration - Patient Studies Lab Studies: Microbiology Studies 12/24/17 09:41 Blood Culture - Preliminary Blood-Thru Central Line NO GROWTH AFTER 4 DAYS 12/25/17 17:05 Gram Stain - Final Abdomen Wound Culture - Final Chio Albicans 12/25/17 12:48 Gram Stain - Final Abdomen Wound Culture - Final Chio Albicans 12/24/17 14:20 Blood Culture - Preliminary Blood-Thru Central Line NO GROWTH AFTER 3 DAYS 12/25/17 09:41 Gram Stain - Final Sputum Induced Sputum Culture - Final NORMAL ORAL RAMEZ 12/24/17 12:36 Catheter Tip Culture - Final Femer Right No growth. Lab Studies 12/28/17 12/28/17 12/28/17 Range/Units 06:47 06:30 06:30 WBC 16.2 H (4.8-10.8) K/uL RBC 2.83 L (3.80-5.20) Mil/uL Hgb 8.0 L (11.0-16.0) g/dL Hct 23.8 L (34.0-47.0) % MCV 84.0 (81.0-99.0) fL MCH 28.3 (27.0-31.0) pg MCHC 33.7 (33.0-37.0) g/dL RDW 14.5 (11.5-14.5) % Plt Count 183 (130-400) K/uL MPV 9.8 (7.2-11.7) fL Neut % (Auto) 81.9 H (50.0-75.0) % Lymph % (Auto) 8.2 L (20.0-40.0) % Swisher % (Auto) 7.9 (0.0-10.0) % Eos % (Auto) 1.4 (0.0-4.0) % Baso % (Auto) 0.6 (0.0-2.0) % Neut # (Auto) 13.2 H (1.8-7.0) K/uL Lymph # (Auto) 1.3 (1.0-4.3) K/uL Swisher # (Auto) 1.3 H (0.0-0.8) K/uL Eos # (Auto) 0.2 (0.0-0.7) K/uL Baso # (Auto) 0.1 (0.0-0.2) K/uL Neutrophils % (Manual) 73 (50-75) % Band Neutrophils % 8 H (0-2) % Lymphocytes % (Manual) 11 L (20-40) % Monocytes % (Manual) 7 (0-10) % Eosinophils % (Manual) 1 (0-4) % Platelet Estimate Normal (NORMAL) Plt Clumps, EDTA Present Polychromasia Slight Hypochromasia (manual) Slight Poikilocytosis (manual Slight Anisocytosis (manual) Slight Tear Drop Cells Slight Ovalocytes Slight Puncture Site pCO2 (35-45) mm/Hg pO2 (80-100) mm/Hg HCO3 (21-28) mmol/L ABG pH (7.35-7.45) ABG Total CO2 (22-28) mmol/L ABG O2 Saturation (95-98) % ABG Base Excess (-2.0-3.0) mmol/L ABG Hemoglobin (11.7-17.4) g/dL ABG Carboxyhemoglobin (0.5-1.5) % POC ABG HHb (Measured) (0.0-5.0) % ABG Methemoglobin (0.0-3.0) % Richard Test A-a O2 Difference mm/Hg Respiratory Index Hgb O2 Saturation (95.0-98.0) % Vent Mode Mechanical Rate FiO2 % Tidal Volume PEEP Sodium 141 (132-148) mmol/L Potassium 4.0 (3.6-5.2) mmol/L Chloride 103 (98-107) mmol/L Carbon Dioxide 25 (22-30) mmol/L Anion Gap 17 (10-20) BUN 50 H (7-17) mg/dL Creatinine 4.8 H (0.7-1.2) mg/dL Est GFR ( Amer) 11 Est GFR (Non-Af Amer) 9 POC Glucose (mg/dL) 171 H (65-110) mg/dL Random Glucose 168 H (65-105) mg/dL Calcium 7.3 L (8.6-10.4) mg/dl Phosphorus 4.7 H (2.5-4.5) mg/dL Magnesium 2.0 (1.6-2.3) mg/dL Total Bilirubin 0.9 (0.2-1.3) mg/dL AST 31 (14-36) U/L ALT 25 (9-52) U/L Alkaline Phosphatase 67 (38-126) U/L Total Protein 6.0 L (6.3-8.3) g/dL Albumin 2.8 L (3.5-5.0) g/dL Globulin 3.2 (2.2-3.9) gm/dL Albumin/Globulin Ratio 0.9 L (1.0-2.1) 12/28/17 12/27/17 12/27/17 Range/Units 05:22 23:38 17:28 WBC (4.8-10.8) K/uL RBC (3.80-5.20) Mil/uL Hgb (11.0-16.0) g/dL Hct (34.0-47.0) % MCV (81.0-99.0) fL MCH (27.0-31.0) pg MCHC (33.0-37.0) g/dL RDW (11.5-14.5) % Plt Count (130-400) K/uL MPV (7.2-11.7) fL Neut % (Auto) (50.0-75.0) % Lymph % (Auto) (20.0-40.0) % Swisher % (Auto) (0.0-10.0) % Eos % (Auto) (0.0-4.0) % Baso % (Auto) (0.0-2.0) % Neut # (Auto) (1.8-7.0) K/uL Lymph # (Auto) (1.0-4.3) K/uL Swisher # (Auto) (0.0-0.8) K/uL Eos # (Auto) (0.0-0.7) K/uL Baso # (Auto) (0.0-0.2) K/uL Neutrophils % (Manual) (50-75) % Band Neutrophils % (0-2) % Lymphocytes % (Manual) (20-40) % Monocytes % (Manual) (0-10) % Eosinophils % (Manual) (0-4) % Platelet Estimate (NORMAL) Plt Clumps, EDTA Polychromasia Hypochromasia (manual) Poikilocytosis (manual Anisocytosis (manual) Tear Drop Cells Ovalocytes Puncture Site Lr pCO2 34 L (35-45) mm/Hg pO2 83 (80-100) mm/Hg HCO3 25.3 (21-28) mmol/L ABG pH 7.46 H (7.35-7.45) ABG Total CO2 25.2 (22-28) mmol/L ABG O2 Saturation 98.8 H (95-98) % ABG Base Excess 0.5 (-2.0-3.0) mmol/L ABG Hemoglobin 8.4 L (11.7-17.4) g/dL ABG Carboxyhemoglobin 2.0 H (0.5-1.5) % POC ABG HHb (Measured) 1.2 (0.0-5.0) % ABG Methemoglobin 1.0 (0.0-3.0) % Richard Test Pos A-a O2 Difference 160.0 mm/Hg Respiratory Index 1.9 Hgb O2 Saturation 95.8 (95.0-98.0) % Vent Mode Aprv Mechanical Rate 14 FiO2 40.0 % Tidal Volume 450 PEEP 5 Sodium (132-148) mmol/L Potassium (3.6-5.2) mmol/L Chloride (98-107) mmol/L Carbon Dioxide (22-30) mmol/L Anion Gap (10-20) BUN (7-17) mg/dL Creatinine (0.7-1.2) mg/dL Est GFR ( Amer) Est GFR (Non-Af Amer) POC Glucose (mg/dL) 164 H 114 H (65-110) mg/dL Random Glucose (65-105) mg/dL Calcium (8.6-10.4) mg/dl Phosphorus (2.5-4.5) mg/dL Magnesium (1.6-2.3) mg/dL Total Bilirubin (0.2-1.3) mg/dL AST (14-36) U/L ALT (9-52) U/L Alkaline Phosphatase (38-126) U/L Total Protein (6.3-8.3) g/dL Albumin (3.5-5.0) g/dL Globulin (2.2-3.9) gm/dL Albumin/Globulin Ratio (1.0-2.1) 12/27/17 Range/Units 11:19 WBC (4.8-10.8) K/uL RBC (3.80-5.20) Mil/uL Hgb (11.0-16.0) g/dL Hct (34.0-47.0) % MCV (81.0-99.0) fL MCH (27.0-31.0) pg MCHC (33.0-37.0) g/dL RDW (11.5-14.5) % Plt Count (130-400) K/uL MPV (7.2-11.7) fL Neut % (Auto) (50.0-75.0) % Lymph % (Auto) (20.0-40.0) % Swisher % (Auto) (0.0-10.0) % Eos % (Auto) (0.0-4.0) % Baso % (Auto) (0.0-2.0) % Neut # (Auto) (1.8-7.0) K/uL Lymph # (Auto) (1.0-4.3) K/uL Swisher # (Auto) (0.0-0.8) K/uL Eos # (Auto) (0.0-0.7) K/uL Baso # (Auto) (0.0-0.2) K/uL Neutrophils % (Manual) (50-75) % Band Neutrophils % (0-2) % Lymphocytes % (Manual) (20-40) % Monocytes % (Manual) (0-10) % Eosinophils % (Manual) (0-4) % Platelet Estimate (NORMAL) Plt Clumps, EDTA Polychromasia Hypochromasia (manual) Poikilocytosis (manual Anisocytosis (manual) Tear Drop Cells Ovalocytes Puncture Site pCO2 (35-45) mm/Hg pO2 (80-100) mm/Hg HCO3 (21-28) mmol/L ABG pH (7.35-7.45) ABG Total CO2 (22-28) mmol/L ABG O2 Saturation (95-98) % ABG Base Excess (-2.0-3.0) mmol/L ABG Hemoglobin (11.7-17.4) g/dL ABG Carboxyhemoglobin (0.5-1.5) % POC ABG HHb (Measured) (0.0-5.0) % ABG Methemoglobin (0.0-3.0) % Richard Test A-a O2 Difference mm/Hg Respiratory Index Hgb O2 Saturation (95.0-98.0) % Vent Mode Mechanical Rate FiO2 % Tidal Volume PEEP Sodium (132-148) mmol/L Potassium (3.6-5.2) mmol/L Chloride (98-107) mmol/L Carbon Dioxide (22-30) mmol/L Anion Gap (10-20) BUN (7-17) mg/dL Creatinine (0.7-1.2) mg/dL Est GFR ( Amer) Est GFR (Non-Af Amer) POC Glucose (mg/dL) 121 H (65-110) mg/dL Random Glucose (65-105) mg/dL Calcium (8.6-10.4) mg/dl Phosphorus (2.5-4.5) mg/dL Magnesium (1.6-2.3) mg/dL Total Bilirubin (0.2-1.3) mg/dL AST (14-36) U/L ALT (9-52) U/L Alkaline Phosphatase (38-126) U/L Total Protein (6.3-8.3) g/dL Albumin (3.5-5.0) g/dL Globulin (2.2-3.9) gm/dL Albumin/Globulin Ratio (1.0-2.1) Laboratory Results - last 24 hr 12/27/17 12/27/17 12/27/17 11:19 17:28 23:38 WBC RBC Hgb Hct MCV MCH MCHC RDW Plt Count MPV Neut % (Auto) Lymph % (Auto) Swisher % (Auto) Eos % (Auto) Baso % (Auto) Neut # (Auto) Lymph # (Auto) Swisher # (Auto) Eos # (Auto) Baso # (Auto) Neutrophils % (Manual) Band Neutrophils % Lymphocytes % (Manual) Monocytes % (Manual) Eosinophils % (Manual) Platelet Estimate Plt Clumps, EDTA Polychromasia Hypochromasia (manual) Poikilocytosis (manual Anisocytosis (manual) Tear Drop Cells Ovalocytes Puncture Site pCO2 pO2 HCO3 ABG pH ABG Total CO2 ABG O2 Saturation ABG Base Excess ABG Hemoglobin ABG Carboxyhemoglobin POC ABG HHb (Measured) ABG Methemoglobin Richard Test A-a O2 Difference Respiratory Index Hgb O2 Saturation Vent Mode Mechanical Rate FiO2 Tidal Volume PEEP Sodium Potassium Chloride Carbon Dioxide Anion Gap BUN Creatinine Est GFR ( Amer) Est GFR (Non-Af Amer) POC Glucose (mg/dL) 121 H 114 H 164 H Random Glucose Calcium Phosphorus Magnesium Total Bilirubin AST ALT Alkaline Phosphatase Total Protein Albumin Globulin Albumin/Globulin Ratio 12/28/17 12/28/17 12/28/17 05:22 06:30 06:30 WBC 16.2 H RBC 2.83 L Hgb 8.0 L Hct 23.8 L MCV 84.0 MCH 28.3 MCHC 33.7 RDW 14.5 Plt Count 183 MPV 9.8 Neut % (Auto) 81.9 H Lymph % (Auto) 8.2 L Swisher % (Auto) 7.9 Eos % (Auto) 1.4 Baso % (Auto) 0.6 Neut # (Auto) 13.2 H Lymph # (Auto) 1.3 Swisher # (Auto) 1.3 H Eos # (Auto) 0.2 Baso # (Auto) 0.1 Neutrophils % (Manual) 73 Band Neutrophils % 8 H Lymphocytes % (Manual) 11 L Monocytes % (Manual) 7 Eosinophils % (Manual) 1 Platelet Estimate Normal Plt Clumps, EDTA Present Polychromasia Slight Hypochromasia (manual) Slight Poikilocytosis (manual Slight Anisocytosis (manual) Slight Tear Drop Cells Slight Ovalocytes Slight Puncture Site Lr pCO2 34 L pO2 83 HCO3 25.3 ABG pH 7.46 H ABG Total CO2 25.2 ABG O2 Saturation 98.8 H ABG Base Excess 0.5 ABG Hemoglobin 8.4 L ABG Carboxyhemoglobin 2.0 H POC ABG HHb (Measured) 1.2 ABG Methemoglobin 1.0 Richard Test Pos A-a O2 Difference 160.0 Respiratory Index 1.9 Hgb O2 Saturation 95.8 Vent Mode Aprv Mechanical Rate 14 FiO2 40.0 Tidal Volume 450 PEEP 5 Sodium 141 Potassium 4.0 Chloride 103 Carbon Dioxide 25 Anion Gap 17 BUN 50 H Creatinine 4.8 H Est GFR ( Amer) 11 Est GFR (Non-Af Amer) 9 POC Glucose (mg/dL) Random Glucose 168 H Calcium 7.3 L Phosphorus 4.7 H Magnesium 2.0 Total Bilirubin 0.9 AST 31 ALT 25 Alkaline Phosphatase 67 Total Protein 6.0 L Albumin 2.8 L Globulin 3.2 Albumin/Globulin Ratio 0.9 L 12/28/17 06:47 WBC RBC Hgb Hct MCV MCH MCHC RDW Plt Count MPV Neut % (Auto) Lymph % (Auto) Swisher % (Auto) Eos % (Auto) Baso % (Auto) Neut # (Auto) Lymph # (Auto) Swisher # (Auto) Eos # (Auto) Baso # (Auto) Neutrophils % (Manual) Band Neutrophils % Lymphocytes % (Manual) Monocytes % (Manual) Eosinophils % (Manual) Platelet Estimate Plt Clumps, EDTA Polychromasia Hypochromasia (manual) Poikilocytosis (manual Anisocytosis (manual) Tear Drop Cells Ovalocytes Puncture Site pCO2 pO2 HCO3 ABG pH ABG Total CO2 ABG O2 Saturation ABG Base Excess ABG Hemoglobin ABG Carboxyhemoglobin POC ABG HHb (Measured) ABG Methemoglobin Richard Test A-a O2 Difference Respiratory Index Hgb O2 Saturation Vent Mode Mechanical Rate FiO2 Tidal Volume PEEP Sodium Potassium Chloride Carbon Dioxide Anion Gap BUN Creatinine Est GFR ( Amer) Est GFR (Non-Af Amer) POC Glucose (mg/dL) 171 H Random Glucose Calcium Phosphorus Magnesium Total Bilirubin AST ALT Alkaline Phosphatase Total Protein Albumin Globulin Albumin/Globulin Ratio Critical Care Progress Note - Nutrition Nutrition: Nutrition Category Date Time Status NPO Diet [DIET] Diets 12/20/17 Dinner Active Assessment/Plan - Assessment and Plan (Free Text) Plan: Patient seen and examined at bedside. Patient in ICU with prolonged hospital course. 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 During endoscopy, patient had blood loss requiring epi injection. Post procedure, patient was hypertensive requireing ICu monitoring. Patient developed free air requiring surgical intervention. 12/27: CT abd revealed oral contrast outside Gi tract 12/27 GI attempted endoscopic repair of Gi perforation. -Surgical omental patch repair of posterior duodenum: CT (+) ? leak, s/p endoscopic repairm Strict NPO via OG tube -hypoxic respriatory failure;limited CPAP trials 2nd procedure -ARF: continue negative balance with HD -Anemia: monitor CBC, no sobia Gi bleeding, transfuse 1 unit blood today and contiune serial cbc -Sepsis with left shift:continue broad spectrum abx as per ID -Malnutrition: will benfit from IV TPN -BGM q6hrs, ISS aspart -dvt ppx SCD/heparin -PUD ppx protonix -off sedatio -Patient remains off pressors. -As per nursing, significant billious drain from KORI drain. Prognosis guarded pending ng tube management as per surgery - Date & Time Date: 12/27/17 Time: 19:00
[2017-12-27] MEDS ORDERED: Iohexol 240 (50 ml) PO ONE (10:00)
[2017-12-27] MEDS ORDERED: Dexmedetomidine Hydrochloride 200 MCG in Sodium Chloride 0.9% 48 ML IV PRN (10:30)
[2017-12-27] MEDS: Micafungin 100 MG in Sodium Chloride 0.9% 100 ML IV SCH (10:50)
[2017-12-27] MEDS: Meropenem 500 MG in Sodium Chloride 0.9% 100 ML IVPB SCH ×2 (11:00→21:39)
[2017-12-27] MEDS: Saccharomyces Boulardi 250 mg Cap PO SCH ×2 (11:11→21:38)
--- NOTE | 2017-12-27 11:52 | CT ---
PROCEDURE: CT Abdomen and Pelvis without intravenous contrast HISTORY: r/o duodenal perforation COMPARISON: None. TECHNIQUE: Without contrast.. Contrast dose: 0 Oral contrast administered for this examination, through nasogastric tube. Radiation dose: Total exam DLP = 1214.78 mGy-cm. This CT exam was performed using one or more of the following dose reduction techniques: Automated exposure control, adjustment of the mA and/or kV according to patient size, and/or use of iterative reconstruction technique. FINDINGS: LOWER THORAX: Linear scar/ atelectasis in both lower lobes. No pleural effusion. Dependent pleural thickening at right lung base posteriorly. LIVER: Unremarkable. No gross lesion or ductal dilatation. GALLBLADDER AND BILE DUCTS: Cholecystectomy PANCREAS: Unremarkable. No gross lesion or ductal dilatation. SPLEEN: Unremarkable. ADRENALS: Unremarkable. No mass. KIDNEYS AND URETERS: Unremarkable. No hydronephrosis. No solid mass. VASCULATURE: Unremarkable. No aortic aneurysm. BOWEL: Unremarkable. No obstruction. NoThere is oral contrast seen within the peritoneal cavity extrinsic to the bowel. The point of communication is most likely demonstrated on series 3, image 68, immediately at the location of the duodenal patch. This is also seen on series 602, image 83 and series 601, image 60. there is gas and oral contrast extrinsic to the bowel extending into the right pericolic gutter. In the inferior extent, at the level of the iliopsoas muscle, there it is a collection of oral contrast and bubbles of gas. Please note that there is also questionable collection within the lower right rectus sheath. No oral contrast is seen in this location. Oral contrast is also seen within the 3rd and 4th duodenum. There is no obstruction evident. There is no evidence of bowel obstruction elsewhere. There are no other abnormal bowel loops appreciated. The right colon is unremarkable in appearance. Please note that a surgical drain extends through this collection of contrast in the right paracolic gutter. APPENDIX: Not identified. PERITONEUM: See above. Trace ascites in pelvis. Anterior midline surgical wound. Cutaneous gayle. Trace fluid within surgical wound. LYMPH NODES: Unremarkable. No enlarged lymph nodes. BLADDER: Esteban catheter. Nondistended. REPRODUCTIVE: Normal postmenopausal uterus. BONES: No acute fracture. OTHER FINDINGS: None. IMPRESSION: Demonstration of duodenal perforation at the time of this examination with oral contrast administered prior to the examination seen extrinsic to the duodenum, in the right pericolic gutter extending down to the level of the right ileo psoas. There is questionable low-density collection in the inferior extent of the right rectus sheath though there is no oral contrast seen in this location. The surgical drain currently in place traverses the major portion of the extrinsic intraperitoneal/ retroperitoneal contrast collection.
[2017-12-27] MEDS ORDERED: Propofol 10 mg/ml Inj (20 ML) ONE ×2 (12:17→12:49)
[2017-12-27] MEDS ORDERED: Midazolam 2 MG/2 ML VIAL ONE (12:49)
[2017-12-27] MEDS ORDERED: Lactated Ringer's 250 ML IV ONE (12:56)
--- NOTE | 2017-12-27 13:25 | PCM.SURG1 ---
Surgeon's Initial Post Op Note - Surgeon's Notes Surgeon: Dr. Flynn Journalism Intern: Dr. Hurst Type of Anesthesia: MAC Pre-Operative Diagnosis: Duodenal Perforation Operative Findings: Duodenal leak Post-Operative Diagnosis: Duodenal leak with endoscopic closure using clips Operation Performed: EGD: Duodenal leak with two clips placed, full report to follow Specimen/Specimens Removed: N/A Estimated Blood Loss: EBL {In ML}: 0 Date of Surgery/Procedure: 12/27/17 Time of Surgery/Procedure: 12:45
--- NOTE | 2017-12-27 14:37 | CP.PCM.PN ---
Subjective - Date & Time of Evaluation Date of Evaluation: 12/27/17 Time of Evaluation: 14:36 - Subjective Subjective: Nephrology Consultation Note: Assessment: critical oliguric Acute Kidney Injury (N17.9) likely hemodynamic injury leading to ATN with Pulmonary congestion, started dialysis 12/20/17 HAGMA with respi compensation, hypocalcemia with Vit D insuff (level 23) carcinoid HTN crisis s/p resection now resolved acute abdomen with perforation s/p repair 12/18/17 (ex lap) hypertension, COPD, breast cancer s/p lumpectomy and duodenal neuroendocrine tumor Plan Plan for HD today as MWF as ordered. continue to monitor for spontaneous renal recovery No ACEI/ARB due to MANFRED. Maintain hemodynamics stable. Monitor Input/Output, daily weights and renal function with basic metabolic panel minimize IVF agree with IV calcium gluconate supplementation as needed anemia: PRBC as needed. ordered epogen 8000 unit 3 times a week will give Vit D and iron/MVI once pt on diet Dose meds/antibiotics for reduced GFR and dialysis status. Avoid fleets enema/ magnesium based laxatives. Avoid nephrotoxins/NSAIDs/ iodinated contrast ( unless needed emergently) Glycemic control Further work up/management as per primary team Thanks for allowing me to participate in care of your patient. Will follow patient with you. Please call if any Qs. 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 she also had HTN crisis which was treated with cardene drip. renal consult for MANFRED eval. also found to have free air in abdomen Denies OTC/herbal meds or NSAIDs No recent iodinated contrast exposure. Noted obvious episodes of low BP (89/51). ROS: unable as pt intubated Physical Examination: General Appearance: remains intubated, ill appearing Vitals reviewed and noted as below Head; Atraumatic, normocephalic ENT: orally intubated EYES: Pupils are equal, round and reactive to light accommodation. Eye muscles and extraocular movement intact. Sclera is anicteric. Neck; supple no lymphadenopathy, no thyromegaly or bruit Lungs: Increased respiratory rate/effort. Breath sounds bilateral equal and bilateral with few wheeze Heart: Normal rate. s1s2 normal. No rub or gallop. Extremities: no edema. No varicose veins Neurological: Patient is awake Skin: Warm and dry. Normal turgor. No rash. Palpitation: Normal elasticity for age Abdomen: no abdominal tenderness with out guarding but no rigidity no organomegaly s/p exlap Psych: unable MSK: no joint tenderness or swelling. Digits and nails normal, no deformity : kidney or bladder not palpable. has bruce with dark colored urine access: permacath Labs/imaging reviewed. Past medical history, past surgical history, family history, social history, allergy reviewed and noted as below Family hx: no hx of CKD. Rest non-contributory renal imaging: WNL FeNa 0.7% UA 1+ protein no blood Objective - Vital Signs/Intake and Output Vital Signs (last 24 hours): Temp Pulse Resp BP Pulse Ox 99.7 F H 102 H 26 H 104/56 L 100 12/27/17 11:00 12/27/17 12:28 12/27/17 12:28 12/27/17 12:28 12/27/17 12:28 Intake and Output: 12/27/17 12/27/17 06:59 18:59 Intake Total 954 554 Output Total 980 250 Balance -26 304 - Medications Medications: Current Medications Acetaminophen (Tylenol 650mg/20.3ml Solution Ud) 650 mg PO Q6 PRN PRN Reason: Fever >100.4 F Last Admin: 12/27/17 08:57 Dose: 650 mg Albuterol/Ipratropium (Duoneb 3 Mg/0.5 Mg (3 Ml) Ud) 3 ml INH RQ4 PRN PRN Reason: Shortness of Breath Last Admin: 12/27/17 07:59 Dose: 3 ml Dextrose (Dextrose 50% Inj) 0 ml IV STAT PRN; Protocol PRN Reason: Hypoglycemia Protocol Dextrose (Glutose 15) 15 gm PO ONCE PRN; Protocol PRN Reason: Hypoglycemia Protocol Epoetin Juan F (Procrit) 8,[facility] Stop: 12/30/17 09:01 Last Admin: 12/25/17 14:39 Dose: 8,000 unit Glucagon (Glucagen Diagnostic Kit) 1 mg IM STAT PRN; Protocol PRN Reason: Hypoglycemia Protocol Heparin Sodium (Porcine) (Heparin) 3,700 units IVP MWF [facility] Last Admin: 12/25/17 16:58 Dose: 3,700 units Dextrose (Dextrose 5% In Water 1000 Ml) 1,000 mls @ 0 mls/hr IV .Q0M PRN; Protocol; Per Protocol PRN Reason: Hypoglycemia Protocol Meropenem 500 mg/ Sodium (Chloride) 100 mls @ 100 mls/hr IVPB Q12 FESTUS PRN Reason: Protocol Last Admin: 12/27/17 11:00 Dose: 100 mls/hr Micafungin Sodium 100 mg/ (Sodium Chloride) 100 mls @ 100 mls/hr IV Q24H FESTUS PRN Reason: Protocol Last Admin: 12/27/17 10:50 Dose: 100 mls/hr Sodium Chloride 35 meq/Magnesium Sulfate 3 meq/Calcium Gluconate 4.5 meq/ Multivitamins/Vitamin C 10 ml/Heparin Sodium (Porcine) 1, 000 units/ Amino Acids 1,030.1663 mls @ 42 mls/hr IV .Q24H ONE Stop: 12/27/17 17:59 Last Admin: 12/26/17 17:36 Dose: 42 mls/hr Amikacin Sulfate 750 mg/ (Sodium Chloride) 253 mls @ 250 mls/hr IVPB Q48H FESTUS PRN Reason: Protocol Last Admin: 12/26/17 20:45 Dose: 250 mls/hr Daptomycin 600 mg/ Sodium (Chloride) 100 mls @ 100 mls/hr IV Q48H FESTUS PRN Reason: Protocol Stop: 12/31/17 19:31 Last Admin: 12/26/17 19:45 Dose: 100 mls/hr Dexmedetomidine HCl 200 mcg/ (Sodium Chloride) 50 mls @ 5.75 mls/hr IV TITR PRN ; Protocol; 0.2 MCG/KG/HR PRN Reason: Agitation Octreotide Acetate 1,250 mcg/ (Sodium Chloride) 252.5 mls @ 5.05 mls/hr IV .Q24H FESTUS; 25 MCG/HR PRN Reason: Protocol Last Admin: 12/27/17 13:56 Dose: 5.05 mls/hr Insulin Human Regular (Novolin R) 0 unit SC Q6 FESTUS PRN Reason: Protocol Last Admin: 12/27/17 12:05 Dose: Not Given Pantoprazole Sodium (Protonix Inj) 40 mg IVP Q12H [facility] Last Admin: 12/27/17 11:11 Dose: 40 mg Saccharomyces Boulardii (Florastor) 250 mg PO Q12 [facility] Last Admin: 12/27/17 11:11 Dose: 250 mg - Labs Labs: 12/27/17 06:39 12/27/17 06:40 PT 14.0 SECONDS (9.7-12.2) H 12/24/17 08:54 INR 1.3 12/24/17 08:54 APTT 40 SECONDS (21-34) H 12/18/17 12:39
[2017-12-27] MEDS ORDERED: Albumin Human 25% (12.5 gm/50 ml) IV ONE ×2 (15:29→15:30)
[2017-12-27] MEDS: Albumin Human 25% (12.5 gm/50 ml) IV PRN (15:45)
--- NOTE | 2017-12-27 17:33 | CP.PCM.PN ---
Subjective - Date & Time of Evaluation Date of Evaluation: 12/27/17 Time of Evaluation: 09:50 - Subjective Subjective: Seen and examined by me. Patient is awake and responsive. No distress.CPAP trial .Had 101F last night,WBC is high Both KORI drain with full of bilious drain Going for CT abdomen and pelvis with oral contrast Objective - Vital Signs/Intake and Output Vital Signs (last 24 hours): Temp Pulse Resp BP Pulse Ox 99.0 F 88 28 H 117/51 L 99 12/27/17 16:00 12/27/17 16:28 12/27/17 16:28 12/27/17 16:28 12/27/17 16:28 Intake and Output: 12/27/17 12/27/17 06:59 18:59 Intake Total 954 564 Output Total 980 310 Balance -26 254 - Medications Medications: Current Medications Acetaminophen (Tylenol 650mg/20.3ml Solution Ud) 650 mg PO Q6 PRN PRN Reason: Fever >100.4 F Last Admin: 12/27/17 08:57 Dose: 650 mg Albumin Human (Albumin Human 25% (12.5 Gm/50 Ml)) 25 gm IV MWF PRN PRN Reason: Other Last Admin: 12/27/17 15:45 Dose: 25 gm Albuterol/Ipratropium (Duoneb 3 Mg/0.5 Mg (3 Ml) Ud) 3 ml INH RQ4 PRN PRN Reason: Shortness of Breath Last Admin: 12/27/17 07:59 Dose: 3 ml Dextrose (Dextrose 50% Inj) 0 ml IV STAT PRN; Protocol PRN Reason: Hypoglycemia Protocol Dextrose (Glutose 15) 15 gm PO ONCE PRN; Protocol PRN Reason: Hypoglycemia Protocol Epoetin Juan F (Procrit) 8,000 unit IV [facility] Stop: 12/30/17 09:01 Last Admin: 12/25/17 14:39 Dose: 8,000 unit Glucagon (Glucagen Diagnostic Kit) 1 mg IM STAT PRN; Protocol PRN Reason: Hypoglycemia Protocol Heparin Sodium (Porcine) (Heparin) 3,700 units IVP [facility] Last Admin: 12/25/17 16:58 Dose: 3,700 units Dextrose (Dextrose 5% In Water 1000 Ml) 1,000 mls @ 0 mls/hr IV .Q0M PRN; Protocol; Per Protocol PRN Reason: Hypoglycemia Protocol Meropenem 500 mg/ Sodium (Chloride) 100 mls @ 100 mls/hr IVPB Q12 [facility] PRN Reason: Protocol Last Admin: 12/27/17 11:00 Dose: 100 mls/hr Micafungin Sodium 100 mg/ (Sodium Chloride) 100 mls @ 100 mls/hr IV Q24H [facility] PRN Reason: Protocol Last Admin: 12/27/17 10:50 Dose: 100 mls/hr Sodium Chloride 35 meq/Magnesium Sulfate 3 meq/Calcium Gluconate 4.5 meq/ Multivitamins/Vitamin C 10 ml/Heparin Sodium (Porcine) 1, 000 units/ Amino Acids 1,030.1663 mls @ 42 mls/hr IV .Q24H [facility] Stop: 12/27/17 17:59 Last Admin: 12/26/17 17:36 Dose: 42 mls/hr Amikacin Sulfate 750 mg/ (Sodium Chloride) 253 mls @ 250 mls/hr IVPB Q48H [facility] PRN Reason: Protocol Last Admin: 12/26/17 20:45 Dose: 250 mls/hr Daptomycin 600 mg/ Sodium (Chloride) 100 mls @ 100 mls/hr IV Q48H [facility] PRN Reason: Protocol Stop: 12/31/17 19:31 Last Admin: 12/26/17 19:45 Dose: 100 mls/hr Dexmedetomidine HCl 200 mcg/ (Sodium Chloride) 50 mls @ 5.75 mls/hr IV TITR PRN ; Protocol; 0.2 MCG/KG/HR PRN Reason: Agitation Octreotide Acetate 1,250 mcg/ (Sodium Chloride) 252.5 mls @ 5.05 mls/hr IV .Q24H [facility]; 25 MCG/HR PRN Reason: Protocol Last Admin: 12/27/17 13:56 Dose: 5.05 mls/hr Insulin Human Regular (Novolin R) 0 unit SC Q6 [facility] PRN Reason: Protocol Last Admin: 12/27/17 12:05 Dose: Not Given Pantoprazole Sodium (Protonix Inj) 40 mg IVP Q12H [facility] Last Admin: 12/27/17 11:11 Dose: 40 mg Saccharomyces Boulardii (Florastor) 250 mg PO Q12 [facility] Last Admin: 12/27/17 11:11 Dose: 250 mg - Labs Labs: 12/27/17 06:39 06/22/18 06:40 PT 14.0 SECONDS (9.7-12.2) H 12/24/17 08:54 INR 1.3 12/24/17 08:54 APTT 40 SECONDS (21-34) H 12/18/17 12:39 - Constitutional Appears: No Acute Distress - Head Exam Head Exam: NORMAL INSPECTION - Eye Exam Eye Exam: Normal appearance, PERRL - ENT Exam ENT Exam: Mucous Membranes Moist - Neck Exam Neck Exam: Full ROM - Respiratory Exam Respiratory Exam: Clear to Ausculation Bilateral, NORMAL BREATHING PATTERN - Cardiovascular Exam Cardiovascular Exam: REGULAR RHYTHM - GI/Abdominal Exam GI & Abdominal Exam: Soft, Hypoactive Bowel Sounds. absent: Tenderness - Extremities Exam Extremities Exam: Full ROM - Back Exam Back Exam: NORMAL INSPECTION - Neurological Exam Neurological Exam: Awake. 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 she also had HTN crisis which was treated with cardene drip. Patient was admitted to ICU Returned to OR on 12/18/17 due to increasing free air noted on repeat CT scan and underwent s/p ex lap primary repair of duodenal perforation, jourdan patch. Omentectomy. Patient developed acute renal failure /ATN likely due to hydrodynamic injury leading to ATN Right shiley catheter placed - 12/20 - removed 12/24. Dialysis 12/20 and 12/21. Permacath placed 12/25. Dialysis 12/25 and 1 unit PRBC transfused. Patient was having fever spikes with negative cultures CT with oral contrast done on 12/27 showed duodenal perforation/leak. Patient had Endoscopic closure using clips by Dr Flynn on 12/27/2017 Plan: 1.s/p acute abdomen with duodenal perforation Patient had endoscopic resection of duodenal carcinoid tumor on 12/16/2017 Ct reported intraperitoneal air and patient underwent Exploratory lap and repair of perforation on 12/19. Patient is on antibiotics as per Dr Quinonez.continue Amikacin, Meropenem, Micafungin and daptomycin patient has fever spikes,abdominal wall culture grew yeast Patient just had CT chest,abdomen and pelvis without contrast yesterday CT scan repeated with oral contrast showed done on 12/27 showed duodenal perforation/leak. Patient had Endoscopic closure using clips by Dr Flynn on 12/27 Keep NPO, on TPN 2. KORI drain site cellulitis/abdominal wall abscess ,s/p I and D by surgery I and D and KORI drain site dressing was soaked with bilious fluid-Dressing changed by [employer] Has two KORI drain draining continue antibiotics and follow repeat blood cultures drawn on 12/24 we will follow with surgery team 3. Duodenal carcinoid tumor s/p resection 4. Acute renal failure/Oliguric/ATN started on dialysis on 12/20 Right shiley catheter placed - 12/20 - removed 12/24. Dialysis 12/20 and 12/21. Permacath placed 12/25. Dialysis 12/25 HD on MWF as per nephrology .continue to monitor for spontaneous renal recovery we will follow with nephrology medication dose adjustment with Renal function and avoid nephrotoxic meds. 4. Hypertension s/p elevated BP , admitted to ICU due to SBP 220/140s initially on cardene drip. Blood pressure is ok now 5.Fever-She has fever spikes wbc remains high Todays Temp max 100.9 Dr Quinonez. continue Amikacin, Meropenem,Micafungin and daptomycin as per Dr Quinonez. 6.Reparatory failure Weaning as per ICU team 7.Anemia- stool OB negative s/p PRBC transfused. Continue epogen 8.DVT prophylaxis is on heparin SQ and GI prophylaxis is on protonix Discussed with patient patient's daughter Mehul Johnston at bedside this afternoon.
[2017-12-27] MEDS: EPOETIN ALFA 4,000 UNIT/ML ML Dialysis IV SCH (17:40)
--- NOTE | 2017-12-27 18:36 | CP.PCM.PN ---
Subjective - Date & Time of Evaluation Date of Evaluation: 12/27/17 Time of Evaluation: 09:00 - Subjective Subjective: CT confirms duodenal leak + Bile in drains intubated Objective - Vital Signs/Intake and Output Vital Signs (last 24 hours): Temp Pulse Resp BP Pulse Ox 99 F 100 H 25 H 105/53 L 100 12/27/17 17:30 12/27/17 17:30 12/27/17 17:30 12/27/17 17:30 12/27/17 17:00 Intake and Output: 12/27/17 12/27/17 06:59 18:59 Intake Total 954 564 Output Total 980 310 Balance -26 254 - Medications Medications: Current Medications Acetaminophen (Tylenol 650mg/20.3ml Solution Ud) 650 mg PO Q6 PRN PRN Reason: Fever >100.4 F Last Admin: 12/27/17 08:57 Dose: 650 mg Albumin Human (Albumin Human 25% (12.5 Gm/50 Ml)) 25 gm IV MWF PRN PRN Reason: Other Last Admin: 12/27/17 15:45 Dose: 25 gm Albuterol/Ipratropium (Duoneb 3 Mg/0.5 Mg (3 Ml) Ud) 3 ml INH RQ4 PRN PRN Reason: Shortness of Breath Last Admin: 12/27/17 07:59 Dose: 3 ml Dextrose (Dextrose 50% Inj) 0 ml IV STAT PRN; Protocol PRN Reason: Hypoglycemia Protocol Dextrose (Glutose 15) 15 gm PO ONCE PRN; Protocol PRN Reason: Hypoglycemia Protocol Epoetin Juan F (Procrit) 8,000 unit IV [facility] Stop: 12/30/17 09:01 Last Admin: 12/27/17 17:40 Dose: 8,000 unit Glucagon (Glucagen Diagnostic Kit) 1 mg IM STAT PRN; Protocol PRN Reason: Hypoglycemia Protocol Heparin Sodium (Porcine) (Heparin) 3,700 units IVP [facility] Last Admin: 12/27/17 17:40 Dose: 3,700 units Dextrose (Dextrose 5% In Water 1000 Ml) 1,000 mls @ 0 mls/hr IV .Q0M PRN; Protocol; Per Protocol PRN Reason: Hypoglycemia Protocol Meropenem 500 mg/ Sodium (Chloride) 100 mls @ 100 mls/hr IVPB Q12 [facility] PRN Reason: Protocol Last Admin: 12/27/17 11:00 Dose: 100 mls/hr Micafungin Sodium 100 mg/ (Sodium Chloride) 100 mls @ 100 mls/hr IV Q24H [facility] PRN Reason: Protocol Last Admin: 12/27/17 10:50 Dose: 100 mls/hr Amikacin Sulfate 750 mg/ (Sodium Chloride) 253 mls @ 250 mls/hr IVPB Q48H [facility] PRN Reason: Protocol Last Admin: 12/26/17 20:45 Dose: 250 mls/hr Daptomycin 600 mg/ Sodium (Chloride) 100 mls @ 100 mls/hr IV Q48H [facility] PRN Reason: Protocol Stop: 12/31/17 19:31 Last Admin: 12/26/17 19:45 Dose: 100 mls/hr Dexmedetomidine HCl 200 mcg/ (Sodium Chloride) 50 mls @ 5.75 mls/hr IV TITR PRN ; Protocol; 0.2 MCG/KG/HR PRN Reason: Agitation Octreotide Acetate 1,250 mcg/ (Sodium Chloride) 252.5 mls @ 5.05 mls/hr IV .Q24H [facility]; 25 MCG/HR PRN Reason: Protocol Last Admin: 12/27/17 13:56 Dose: 5.05 mls/hr Insulin Human Regular (Novolin R) 0 unit SC Q6 [facility] PRN Reason: Protocol Last Admin: 12/27/17 12:05 Dose: Not Given Pantoprazole Sodium (Protonix Inj) 40 mg IVP Q12H [facility] Last Admin: 12/27/17 11:11 Dose: 40 mg Saccharomyces Boulardii (Florastor) 250 mg PO Q12 [facility] Last Admin: 12/27/17 11:11 Dose: 250 mg - Labs Labs: 12/27/17 06:39 12/27/17 06:40 PT 14.0 SECONDS (9.7-12.2) H 12/24/17 08:54 INR 1.3 12/24/17 08:54 APTT 40 SECONDS (21-34) H 12/18/17 12:39 - Constitutional Appears: Chronically Ill - Head Exam Head Exam: NORMOCEPHALIC - Eye Exam Eye Exam: absent: Scleral icterus - ENT Exam ENT Exam: Mucous Membranes Dry - Neck Exam Neck Exam: absent: Lymphadenopathy - Respiratory Exam Respiratory Exam: Decreased Breath Sounds - Cardiovascular Exam Cardiovascular Exam: REGULAR RHYTHM - GI/Abdominal Exam GI & Abdominal Exam: Distended, Soft, Tenderness - Rectal Exam Rectal Exam: Deferred - Exam Exam: NORMAL INSPECTION - Extremities Exam Extremities Exam: absent: Pedal Edema - Back Exam Back Exam: absent: CVA tenderness (L), CVA tenderness (R) - Neurological Exam Neurological Exam: Alert, Awake, Oriented x3 - Psychiatric Exam Psychiatric exam: Normal Mood - Skin Skin Exam: Dry Assessment and Plan (1) Peritonitis Status: Acute (2) Sepsis Status: Acute (3) Sepsis Status: Acute (4) Renal failure (ARF), acute on chronic Status: Acute (5) Renal failure (ARF), acute on chronic Status: Acute - Assessment and Plan (Free Text) Assessment: duodenal leak/ bile peritonitis/ sepsis/ resp failure poor prognosis possible OR
[2017-12-27] MEDS ORDERED: Dextrose 5%/0.9% NS 1,000 ML IV SCH (19:30)
[2017-12-28] MEDS: (Novolin R) Insulin Human Regular 100 units/ml vial SC SCH ×5 (00:20→23:44)
[2017-12-28 05:32] LABS: ABG ALLEN TEST POS; ARTERIAL BLOOD GAS HCO3 25.3 mmol/L (21-28); ARTERIAL BLOOD GAS HEMOGLOBIN 8.4 g/dL (11.7-17.4); ARTERIAL BLOOD GAS O2 SAT 98.8 % (95-98); ARTERIAL BLOOD GAS PCO2 34 mm/Hg (35-45); ARTERIAL BLOOD GAS PH 7.46 (7.35-7.45); ARTERIAL BLOOD GAS PO2 83 mm/Hg (80-100); ARTERIAL BLOOD GAS TCO2 25.2 mmol/L (22-28)
[2017-12-28 06:39] LABS: BASO # 0.1 K/uL (0.0-0.2); BASO % 0.6 % (0.0-2.0); EOS # 0.2 K/uL (0.0-0.7); EOS % 1.4 % (0.0-4.0); LYMPH # 1.3 K/uL (1.0-4.3); LYMPH % 8.2 % (20.0-40.0); MEAN CORPUSCULAR HEMOGLOBIN 28.3 pg (27.0-31.0); MEAN CORPUSCULAR HGB CONC 33.7 g/dL (33.0-37.0); MEAN PLATELET VOLUME 9.8 fL (7.2-11.7); MONO # 1.3 K/uL (0.0-0.8); MONO % 7.9 % (0.0-10.0); NEUT # 13.2 K/uL (1.8-7.0); NEUT % 81.9 % (50.0-75.0); PLATELET COUNT 183 K/uL (130-400); RBC 2.83 Mil/uL (3.80-5.20); RED CELL DISTRIBUTION WIDTH 14.5 % (11.5-14.5); WHITE BLOOD COUNT 16.2 K/uL (4.8-10.8)
[2017-12-28 07:00] LABS: ALB/GLOB RATIO 0.9 (1.0-2.1); ALBUMIN 2.8 g/dL (3.5-5.0); CALCIUM 7.3 mg/dl (8.6-10.4)
--- NOTE | 2017-12-28 08:28 | RAD ---
HISTORY: intubated COMPARISON: 12/27/2017 FINDINGS: Stable position of endotracheal tube. The nasogastric tube terminates in the stomach. The right-sided PICC line terminates in the SVC. The right dialysis catheter terminates in the SVC. LUNGS: The lungs are well inflated. There is mild pulmonary venous congestion. There is subsegmental atelectasis in the left upper lobe. PLEURA: No significant pleural effusion identified, no pneumothorax apparent. CARDIOVASCULAR: Persistent mild cardiomegaly and prominent central vasculature OSSEOUS STRUCTURES: No significant abnormalities. VISUALIZED UPPER ABDOMEN: Normal. OTHER FINDINGS: None. IMPRESSION: Stable position of support lines and tubes. Persistent mild cardiomegaly, mild pulmonary venous congestion and subsegmental atelectasis in the left upper lobe.
[2017-12-28 08:41] LABS: EOSINOPHIL 1 % (0-4); TOTAL CELLS COUNTED 100
[2017-12-28 08:42] LABS: ANISOCYTOSIS SLIGHT; PLATELET CLUMPS PRESENT; PLATELET ESTIMATE NORMAL (NORMAL); POIKILOCYTOSIS SLIGHT
[2017-12-28 08:43] LABS: HYPOCHROMIC SLIGHT; OVALOCYTES SLIGHT; POLYCHROMIC SLIGHT; TEARDROP CELLS SLIGHT
[2017-12-28 08:45] LABS: BANDS 8 % (0-2); LYMPHOCYTE 11 % (20-40); MONOCYTE 7 % (0-10); NEUTROPHIL 73 % (50-75)
[2017-12-28] MEDS: Meropenem 500 MG in Sodium Chloride 0.9% 100 ML IVPB SCH ×2 (09:31→22:03)
[2017-12-28] MEDS: Saccharomyces Boulardi 250 mg Cap PO SCH ×2 (09:31→22:03)
[2017-12-28] MEDS: Micafungin 100 MG in Sodium Chloride 0.9% 100 ML IV SCH (09:31)
[2017-12-28] MEDS: Acetaminophen 650mg/20.3ml solution UD PO PRN (09:31)
--- NOTE | 2017-12-28 10:41 | CP.PCM.PN ---
<LeslielizzytalaJerry - Last Filed: 12/28/17 10:47> Subjective - Date & Time of Evaluation Date of Evaluation: 12/28/17 Time of Evaluation: 09:15 - Subjective Subjective: PGY5 GI Fellow Progress Note Patient seen and examined bedside this morning. The patient remains mechanically ventilated but is awake and alert, following commands. She is frustrated and eager for ET tube removal. No events overnight. 12 system ROS limited as patient is intubated Objective - Vital Signs/Intake and Output Vital Signs (last 24 hours): Temp Pulse Resp BP Pulse Ox 101.3 F H 97 H 28 H 103/46 L 99 12/28/17 09:31 12/28/17 10:00 12/28/17 10:00 12/28/17 09:13 12/28/17 10:00 Intake and Output: 12/28/17 12/28/17 06:59 18:59 Intake Total 1260 220 Output Total 910 170 Balance 350 50 - Medications Medications: Current Medications Acetaminophen (Tylenol 650 Mg Supp) 650 mg [place] Q6 PRN PRN Reason: Fever >100.4 F Albumin Human (Albumin Human 25% (12.5 Gm/50 Ml)) 25 gm IV MWF PRN PRN Reason: Other Last Admin: 12/27/17 15:45 Dose: 25 gm Albuterol/Ipratropium (Duoneb 3 Mg/0.5 Mg (3 Ml) Ud) 3 ml INH RQ4 [facility] Dextrose (Dextrose 50% Inj) 0 ml IV STAT PRN; Protocol PRN Reason: Hypoglycemia Protocol Dextrose (Glutose 15) 15 gm PO ONCE PRN; Protocol PRN Reason: Hypoglycemia Protocol Epoetin Juan F (Procrit) 8,000 unit IV [facility] [place] Stop: 12/30/17 09:01 Last Admin: 12/27/17 17:40 Dose: 8,000 unit Glucagon (Glucagen Diagnostic Kit) 1 mg IM STAT PRN; Protocol PRN Reason: Hypoglycemia Protocol Heparin Sodium (Porcine) (Heparin) 3,700 units IVP [facility] [place] Last Admin: 12/27/17 17:40 Dose: 3,700 units Dextrose (Dextrose 5% In Water 1000 Ml) 1,000 mls @ 0 mls/hr IV .Q0M PRN; Protocol; Per Protocol PRN Reason: Hypoglycemia Protocol Meropenem 500 mg/ Sodium (Chloride) 100 mls @ 100 mls/hr IVPB Q12 [facility] PRN Reason: Protocol Last Admin: 12/28/17 09:31 Dose: 100 mls/hr Micafungin Sodium 100 mg/ (Sodium Chloride) 100 mls @ 100 mls/hr IV Q24H [facility] PRN Reason: Protocol Last Admin: 12/28/17 09:31 Dose: 100 mls/hr Amikacin Sulfate 750 mg/ (Sodium Chloride) 253 mls @ 250 mls/hr IVPB Q48H [facility] PRN Reason: Protocol Last Admin: 12/26/17 20:45 Dose: 250 mls/hr Daptomycin 600 mg/ Sodium (Chloride) 100 mls @ 100 mls/hr IV Q48H [facility] PRN Reason: Protocol Stop: 12/31/17 19:31 Last Admin: 12/26/17 19:45 Dose: 100 mls/hr Dexmedetomidine HCl 200 mcg/ (Sodium Chloride) 50 mls @ 5.75 mls/hr IV TITR PRN ; Protocol; 0.2 MCG/KG/HR PRN Reason: Agitation Octreotide Acetate 1,250 mcg/ (Sodium Chloride) 252.5 mls @ 10.1 mls/hr IV .Q24H [facility]; 50 MCG/HR PRN Reason: Protocol Insulin Human Regular (Novolin R) 0 unit SC Q6 [facility] PRN Reason: Protocol Last Admin: 12/28/17 06:40 Dose: Not Given Pantoprazole Sodium (Protonix Inj) 40 mg IVP Q12H [facility] Last Admin: 12/28/17 09:31 Dose: 40 mg Saccharomyces Boulardii (Florastor) 250 mg PO Q12 [facility] Last Admin: 12/28/17 09:31 Dose: 250 mg - Labs Labs: 12/28/17 06:30 12/28/17 06:30 PT 14.0 SECONDS (9.7-12.2) H 12/24/17 08:54 INR 1.3 12/24/17 08:54 APTT 40 SECONDS (21-34) H 12/18/17 12:39 - Constitutional Appears: Non-toxic, No Acute Distress - Eye Exam Eye Exam: EOMI, PERRL - ENT Exam ENT Exam: Mucous Membranes Dry Additional comments: ETT in place - Respiratory Exam Respiratory Exam: Rales. absent: Clear to Ausculation Bilateral, Rhonchi, Wheezes - Cardiovascular Exam Cardiovascular Exam: REGULAR RHYTHM, RRR, +S1, +S2 - GI/Abdominal Exam GI & Abdominal Exam: Soft, Tenderness, Normal Bowel Sounds. absent: Distended, Firm, Guarding, Rigid, Mass, Organomegaly Additional comments: two KORI drains in RUQ - bilious fluid noted in one ~50cc - Extremities Exam Extremities Exam: Normal Inspection. 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 Pt now s/p EGD/EUS with EMR complicated by bleeding and duodenal perforation. -Duodenal carcinoid s/p EMR c/b duodenal perforation requiring surgical repair -S/P Carlos patch duodenal perforation repair -Sepsis -Acute renal failure requiring HD -Acute respiratory failure requiring mechanical ventilation Plan: -Pt s/p Carlos patch and endoscopic closure with OTSC -KORI drains continue to have bilious output with concern for persistent duodenal leak -Consider placement of J-tube for feeding -Wean from mechanical ventilation -Continue broad spectrum antibiotics as ordered -HD per nephrology -Will follow <Andrew Flynn - Last Filed: 12/28/17 10:56> Objective - Vital Signs/Intake and Output Vital Signs (last 24 hours): Temp Pulse Resp BP Pulse Ox 101.3 F H 97 H 28 H 103/46 L 99 12/28/17 09:31 12/28/17 10:00 12/28/17 10:00 12/28/17 09:13 12/28/17 10:00 Intake and Output: 12/28/17 12/28/17 06:59 18:59 Intake Total 1260 220 Output Total 910 170 Balance 350 50 - Medications Medications: Current Medications Acetaminophen (Tylenol 650 Mg Supp) 650 mg [place] Q6 PRN PRN Reason: Fever >100.4 F Albumin Human (Albumin Human 25% (12.5 Gm/50 Ml)) 25 gm IV MWF PRN PRN Reason: Other Last Admin: 12/27/17 15:45 Dose: 25 gm Albuterol/Ipratropium (Duoneb 3 Mg/0.5 Mg (3 Ml) Ud) 3 ml INH RQ4 [facility] Dextrose (Dextrose 50% Inj) 0 ml IV STAT PRN; Protocol PRN Reason: Hypoglycemia Protocol Dextrose (Glutose 15) 15 gm PO ONCE PRN; Protocol PRN Reason: Hypoglycemia Protocol Epoetin Juan F (Procrit) 8,000 unit IV [facility] [place] Stop: 12/30/17 09:01 Last Admin: 12/27/17 17:40 Dose: 8,000 unit Glucagon (Glucagen Diagnostic Kit) 1 mg IM STAT PRN; Protocol PRN Reason: Hypoglycemia Protocol Heparin Sodium (Porcine) (Heparin) 3,700 units IVP [facility] [place] Last Admin: 12/27/17 17:40 Dose: 3,700 units Dextrose (Dextrose 5% In Water 1000 Ml) 1,000 mls @ 0 mls/hr IV .Q0M PRN; Protocol; Per Protocol PRN Reason: Hypoglycemia Protocol Meropenem 500 mg/ Sodium (Chloride) 100 mls @ 100 mls/hr IVPB Q12 [facility] PRN Reason: Protocol Last Admin: 12/28/17 09:31 Dose: 100 mls/hr Micafungin Sodium 100 mg/ (Sodium Chloride) 100 mls @ 100 mls/hr IV Q24H [facility] PRN Reason: Protocol Last Admin: 12/28/17 09:31 Dose: 100 mls/hr Amikacin Sulfate 750 mg/ (Sodium Chloride) 253 mls @ 250 mls/hr IVPB Q48H [facility] PRN Reason: Protocol Last Admin: 12/26/17 20:45 Dose: 250 mls/hr Daptomycin 600 mg/ Sodium (Chloride) 100 mls @ 100 mls/hr IV Q48H [facility] PRN Reason: Protocol Stop: 12/31/17 19:31 Last Admin: 12/26/17 19:45 Dose: 100 mls/hr Dexmedetomidine HCl 200 mcg/ (Sodium Chloride) 50 mls @ 5.75 mls/hr IV TITR PRN ; Protocol; 0.2 MCG/KG/HR PRN Reason: Agitation Octreotide Acetate 1,250 mcg/ (Sodium Chloride) 252.5 mls @ 10.1 mls/hr IV .Q24H [facility]; 50 MCG/HR PRN Reason: Protocol Insulin Human Regular (Novolin R) 0 unit SC Q6 [facility] PRN Reason: Protocol Last Admin: 12/28/17 06:40 Dose: Not Given Pantoprazole Sodium (Protonix Inj) 40 mg IVP Q12H [facility] Last Admin: 12/28/17 09:31 Dose: 40 mg Saccharomyces Boulardii (Florastor) 250 mg PO Q12 [facility] Last Admin: 12/28/17 09:31 Dose: 250 mg - Labs Labs: 12/28/17 06:30 12/28/17 06:30 PT 14.0 SECONDS (9.7-12.2) H 12/24/17 08:54 INR 1.3 12/24/17 08:54 APTT 40 SECONDS (21-34) H 12/18/17 12:39 Attending/Attestation - Attestation I have personally seen and examined this patient.: Yes I have fully participated in the care of the patient.: Yes I have reviewed all pertinent clinical information, including history, physical exam and plan: Yes Notes (Text): 12/28/17 10:52 77 year old female with duodenal carcinoid s/p EMR c/b perforation, hospital course complicated by MANFRED 2/2 ATN requiring HD, respiratory failure on vent, s/ p laparotomy with carlos patch, wound infection s/p I&D, ongoing duodenal leak s /p EGD with OTSC placement x 2. Continue OGT to LIS. NPO. TPN. Broad spectrum IV abx. Wean vent. Hopefully she can be extubated soon. HD per renal. Monitor fever/wbc. If the leak does not resolve, she may need additional intervention including additional IR drain placement, jejunal feeding tube placement, surgical revision, or possibly covered esophageal stent placement to seal the leak. Will follow.
--- NOTE | 2017-12-28 11:36 | CP.CCUPN ---
<Estefania Veliz - Last Filed: 12/28/17 11:32> CCU Subjective - Physician Review Subjective (Free Text): Patient seen and examined at bedside. Intubated on PRVC 14/40/500/5, not on sedation, alert. CPAP trials. CCU Objective - Vital Signs / Intake & Output Vital Signs (Last 4 hours): Vital Signs Temp Pulse Resp BP Pulse Ox 12/28/17 11:00 91 H 26 H 100 12/28/17 10:16 99 H 12 83/36 L 99 12/28/17 10:15 99 H 29 H 81/36 L 99 12/28/17 10:14 99 H 31 H 76/36 L 99 12/28/17 10:00 97 H 28 H 99 12/28/17 09:31 101.3 F H 12/28/17 09:13 99 H 22 103/46 L 99 12/28/17 09:00 103 H 29 H 99 12/28/17 08:13 102 H 28 H 100/55 L 99 12/28/17 08:00 101.3 F H 101 H 28 H 100 Intake and Output (Last 8hrs): Intake & Output 12/27/17 12/28/17 12/28/17 22:59 06:59 14:59 Intake Total 440 840 230 Output Total 380 660 170 Balance 60 180 60 Weight 253 lb 8.505 oz Intake: Intake, IV Amount 440 840 230 Right Distal Port PICC 300 800 100 Right PICC 40 40 30 right picc 2nd port 100 100 Output: Drainage 380 560 170 KORI 1 100 360 100 KORI 2 80 200 70 mouth OGT 200 Urine 100 0 Urine, Voided 100 0 Other: # Bowel Movements 1 - Physical Exam Head: Positive for: Atraumatic, Normocephalic, Ecchymosis Extroacular Muscles: Positive for: EOMI Conjunctiva: Positive for: Normal Mouth: Positive for: Other (INTUBATED) Nose (External): Positive for: Other (NGT in place ) Respiratory/Chest: Positive for: Clear to Auscultation. Negative for: Decreased Breath Sounds Cardiovascular: Positive for: Regular Rate and Rhythm Abdomen: Positive for: Tenderness, Normal Bowel Sounds, Other (KORI drains in place, s/p I & D 12/25/17 - dressing clean, dry, intact ). Negative for: Distention Upper Extremity: Positive for: Normal Inspection, NORMAL PULSES, Neurovascularly Intact, Capillary Refill < 2s Lower Extremity: Positive for: Normal Inspection, NORMAL PULSES, Neurovascularly Intact, Capillary Refill < 2 s Neurological: Positive for: GCS=15, CN II-XII Intact Skin: Positive for: Warm, Dry, Normal Color Psychiatric: Positive for: Alert - Medications Active Medications: Active Medications Generic Name Dose Route Start Last Admin Trade Name Freq PRN Reason Stop Dose Admin Acetaminophen 650 mg 12/28/17 10:14 Tylenol 650 Mg Supp OR Q6 PRN Fever >100.4 F Albumin Human 25 gm 12/27/17 14:37 12/27/17 15:45 Albumin Human 25% (12.5 Gm/50 Ml) IV 25 gm MWF PRN Administration Other Albuterol/Ipratropium 3 ml 12/28/17 12:00 Duoneb 3 Mg/0.5 Mg (3 Ml) Ud INH RQ4 FESTUS Dextrose 0 ml 12/16/17 12:08 Dextrose 50% Inj IV STAT PRN Hypoglycemia Protocol Protocol Dextrose 15 gm 12/16/17 12:08 Glutose 15 PO ONCE PRN Hypoglycemia Protocol Protocol Epoetin Juan F 8,000 unit 12/25/17 15:00 12/27/17 17:40 Procrit IV 12/30/17 09:01 8,000 unit MWF FESTUS Administration Glucagon 1 mg 12/16/17 12:08 Glucagen Diagnostic Kit IM STAT PRN Hypoglycemia Protocol Protocol Heparin Sodium (Porcine) 3,700 units 12/25/17 16:46 12/27/17 17:40 Heparin IVP 3,700 units MWF FESTUS Administration Dextrose 1,000 mls @ 0 mls/hr 12/16/17 12:08 Dextrose 5% In Water 1000 Ml IV .Q0M PRN Hypoglycemia Protocol Protocol Per Protocol Meropenem 500 mg/ Sodium 100 mls @ 100 mls/hr 12/18/17 10:00 12/28/17 09:31 Chloride IVPB 100 mls/hr Q12 FESTUS Administration Protocol Micafungin Sodium 100 mg/ 100 mls @ 100 mls/hr 12/21/17 10:00 12/28/17 09:31 Sodium Chloride IV 100 mls/hr Q24H FESTUS Administration Protocol Amikacin Sulfate 750 mg/ 253 mls @ 250 mls/hr 12/26/17 20:30 12/26/17 20:45 Sodium Chloride IVPB 250 mls/hr Q48H FESTUS Administration Protocol Daptomycin 600 mg/ Sodium 100 mls @ 100 mls/hr 12/26/17 19:30 12/26/17 19:45 Chloride IV 12/31/17 19:31 100 mls/hr Q48H FESTUS Administration Protocol Dexmedetomidine HCl 200 mcg/ 50 mls @ 5.75 mls/hr 12/27/17 10:30 Sodium Chloride IV TITR PRN Agitation Protocol 0.2 MCG/KG/HR Octreotide Acetate 1,250 mcg/ 252.5 mls @ 10.1 mls/hr 12/28/17 10:13 11:13 Sodium Chloride IV 10.1 mls/hr .Q24H FESTUS Administration Protocol 50 MCG/HR Insulin Human Regular 0 unit 12/19/17 00:00 12/28/17 06:40 Novolin R SC Not Given Q6 FESTUS Protocol Pantoprazole Sodium 40 mg 12/23/17 22:00 12/28/17 09:31 Protonix Inj IVP 40 mg Q12H FESTUS Administration Saccharomyces Boulardii 250 mg 12/23/17 22:00 12/28/17 09:31 Florastor PO 250 mg Q12 FESTUS Administration - Patient Studies Lab Studies: Microbiology Studies 12/24/17 09:41 Blood Culture - Preliminary Blood-Thru Central Line NO GROWTH AFTER 4 DAYS 12/25/17 17:05 Gram Stain - Final Abdomen Wound Culture - Final Tanvi Albicans 12/25/17 12:48 Gram Stain - Final Abdomen Wound Culture - Final Tanvi Albicans 12/24/17 14:20 Blood Culture - Preliminary Blood-Thru Central Line NO GROWTH AFTER 3 DAYS 12/25/17 09:41 Gram Stain - Final Sputum Induced Sputum Culture - Final NORMAL ORAL RAMEZ 12/24/17 12:36 Catheter Tip Culture - Final Femer Right No growth. Lab Studies 12/28/17 12/28/17 12/28/17 Range/Units 06:47 06:30 06:30 WBC 16.2 H (4.8-10.8) K/uL RBC 2.83 L (3.80-5.20) Mil/uL Hgb 8.0 L (11.0-16.0) g/dL Hct 23.8 L (34.0-47.0) % MCV 84.0 (81.0-99.0) fL MCH 28.3 (27.0-31.0) pg MCHC 33.7 (33.0-37.0) g/dL RDW 14.5 (11.5-14.5) % Plt Count 183 (130-400) K/uL MPV 9.8 (7.2-11.7) fL Neut % (Auto) 81.9 H (50.0-75.0) % Lymph % (Auto) 8.2 L (20.0-40.0) % [place] % (Auto) 7.9 (0.0-10.0) % Eos % (Auto) 1.4 (0.0-4.0) % Baso % (Auto) 0.6 (0.0-2.0) % Neut # (Auto) 13.2 H (1.8-7.0) K/uL Lymph # (Auto) 1.3 (1.0-4.3) K/uL [place] # (Auto) 1.3 H (0.0-0.8) K/uL Eos # (Auto) 0.2 (0.0-0.7) K/uL Baso # (Auto) 0.1 (0.0-0.2) K/uL Neutrophils % (Manual) 73 (50-75) % Band Neutrophils % 8 H (0-2) % Lymphocytes % (Manual) 11 L (20-40) % Monocytes % (Manual) 7 (0-10) % Eosinophils % (Manual) 1 (0-4) % Platelet Estimate Normal (NORMAL) Plt Clumps, EDTA Present Polychromasia Slight Hypochromasia (manual) Slight Poikilocytosis (manual Slight Anisocytosis (manual) Slight Tear Drop Cells Slight Ovalocytes Slight Puncture Site pCO2 (35-45) mm/Hg pO2 (80-100) mm/Hg HCO3 (21-28) mmol/L ABG pH (7.35-7.45) ABG Total CO2 (22-28) mmol/L ABG O2 Saturation (95-98) % ABG Base Excess (-2.0-3.0) mmol/L ABG Hemoglobin (11.7-17.4) g/dL ABG Carboxyhemoglobin (0.5-1.5) % POC ABG HHb (Measured) (0.0-5.0) % ABG Methemoglobin (0.0-3.0) % Richard Test A-a O2 Difference mm/Hg Respiratory Index Hgb O2 Saturation (95.0-98.0) % Vent Mode Mechanical Rate FiO2 % Tidal Volume PEEP Sodium 141 (132-148) mmol/L Potassium 4.0 (3.6-5.2) mmol/L Chloride 103 (98-107) mmol/L Carbon Dioxide 25 (22-30) mmol/L Anion Gap 17 (10-20) BUN 50 H (7-17) mg/dL Creatinine 4.8 H (0.7-1.2) mg/dL Est GFR ( Amer) 11 Est GFR (Non-Af Amer) 9 POC Glucose (mg/dL) 171 H (65-110) mg/dL Random Glucose 168 H (65-105) mg/dL Calcium 7.3 L (8.6-10.4) mg/dl Phosphorus 4.7 H (2.5-4.5) mg/dL Magnesium 2.0 (1.6-2.3) mg/dL Total Bilirubin 0.9 (0.2-1.3) mg/dL AST 31 (14-36) U/L ALT 25 (9-52) U/L Alkaline Phosphatase 67 (38-126) U/L Total Protein 6.0 L (6.3-8.3) g/dL Albumin 2.8 L (3.5-5.0) g/dL Globulin 3.2 (2.2-3.9) gm/dL Albumin/Globulin Ratio 0.9 L (1.0-2.1) 12/28/17 12/27/17 12/27/17 Range/Units 05:22 23:38 17:28 WBC (4.8-10.8) K/uL RBC (3.80-5.20) Mil/uL Hgb (11.0-16.0) g/dL Hct (34.0-47.0) % MCV (81.0-99.0) fL MCH (27.0-31.0) pg MCHC (33.0-37.0) g/dL RDW (11.5-14.5) % Plt Count (130-400) K/uL MPV (7.2-11.7) fL Neut % (Auto) (50.0-75.0) % Lymph % (Auto) (20.0-40.0) % [place] % (Auto) (0.0-10.0) % Eos % (Auto) (0.0-4.0) % Baso % (Auto) (0.0-2.0) % Neut # (Auto) (1.8-7.0) K/uL Lymph # (Auto) (1.0-4.3) K/uL [place] # (Auto) (0.0-0.8) K/uL Eos # (Auto) (0.0-0.7) K/uL Baso # (Auto) (0.0-0.2) K/uL Neutrophils % (Manual) (50-75) % Band Neutrophils % (0-2) % Lymphocytes % (Manual) (20-40) % Monocytes % (Manual) (0-10) % Eosinophils % (Manual) (0-4) % Platelet Estimate (NORMAL) Plt Clumps, EDTA Polychromasia Hypochromasia (manual) Poikilocytosis (manual Anisocytosis (manual) Tear Drop Cells Ovalocytes Puncture Site Lr pCO2 34 L (35-45) mm/Hg pO2 83 (80-100) mm/Hg HCO3 25.3 (21-28) mmol/L ABG pH 7.46 H (7.35-7.45) ABG Total CO2 25.2 (22-28) mmol/L ABG O2 Saturation 98.8 H (95-98) % ABG Base Excess 0.5 (-2.0-3.0) mmol/L ABG Hemoglobin 8.4 L (11.7-17.4) g/dL ABG Carboxyhemoglobin 2.0 H (0.5-1.5) % POC ABG HHb (Measured) 1.2 (0.0-5.0) % ABG Methemoglobin 1.0 (0.0-3.0) % Richard Test Pos A-a O2 Difference 160.0 mm/Hg Respiratory Index 1.9 Hgb O2 Saturation 95.8 (95.0-98.0) % Vent Mode Aprv Mechanical Rate 14 FiO2 40.0 % Tidal Volume 450 PEEP 5 Sodium (132-148) mmol/L Potassium (3.6-5.2) mmol/L Chloride (98-107) mmol/L Carbon Dioxide (22-30) mmol/L Anion Gap (10-20) BUN (7-17) mg/dL Creatinine (0.7-1.2) mg/dL Est GFR ( Amer) Est GFR (Non-Af Amer) POC Glucose (mg/dL) 164 H 114 H (65-110) mg/dL Random Glucose (65-105) mg/dL Calcium (8.6-10.4) mg/dl Phosphorus (2.5-4.5) mg/dL Magnesium (1.6-2.3) mg/dL Total Bilirubin (0.2-1.3) mg/dL AST (14-36) U/L ALT (9-52) U/L Alkaline Phosphatase (38-126) U/L Total Protein (6.3-8.3) g/dL Albumin (3.5-5.0) g/dL Globulin (2.2-3.9) gm/dL Albumin/Globulin Ratio (1.0-2.1) 12/27/17 Range/Units 11:19 WBC (4.8-10.8) K/uL RBC (3.80-5.20) Mil/uL Hgb (11.0-16.0) g/dL Hct (34.0-47.0) % MCV (81.0-99.0) fL MCH (27.0-31.0) pg MCHC (33.0-37.0) g/dL RDW (11.5-14.5) % Plt Count (130-400) K/uL MPV (7.2-11.7) fL Neut % (Auto) (50.0-75.0) % Lymph % (Auto) (20.0-40.0) % [place] % (Auto) (0.0-10.0) % Eos % (Auto) (0.0-4.0) % Baso % (Auto) (0.0-2.0) % Neut # (Auto) (1.8-7.0) K/uL Lymph # (Auto) (1.0-4.3) K/uL [place] # (Auto) (0.0-0.8) K/uL Eos # (Auto) (0.0-0.7) K/uL Baso # (Auto) (0.0-0.2) K/uL Neutrophils % (Manual) (50-75) % Band Neutrophils % (0-2) % Lymphocytes % (Manual) (20-40) % Monocytes % (Manual) (0-10) % Eosinophils % (Manual) (0-4) % Platelet Estimate (NORMAL) Plt Clumps, EDTA Polychromasia Hypochromasia (manual) Poikilocytosis (manual Anisocytosis (manual) Tear Drop Cells Ovalocytes Puncture Site pCO2 (35-45) mm/Hg pO2 (80-100) mm/Hg HCO3 (21-28) mmol/L ABG pH (7.35-7.45) ABG Total CO2 (22-28) mmol/L ABG O2 Saturation (95-98) % ABG Base Excess (-2.0-3.0) mmol/L ABG Hemoglobin (11.7-17.4) g/dL ABG Carboxyhemoglobin (0.5-1.5) % POC ABG HHb (Measured) (0.0-5.0) % ABG Methemoglobin (0.0-3.0) % Richard Test A-a O2 Difference mm/Hg Respiratory Index Hgb O2 Saturation (95.0-98.0) % Vent Mode Mechanical Rate FiO2 % Tidal Volume PEEP Sodium (132-148) mmol/L Potassium (3.6-5.2) mmol/L Chloride (98-107) mmol/L Carbon Dioxide (22-30) mmol/L Anion Gap (10-20) BUN (7-17) mg/dL Creatinine (0.7-1.2) mg/dL Est GFR ( Amer) Est GFR (Non-Af Amer) POC Glucose (mg/dL) 121 H (65-110) mg/dL Random Glucose (65-105) mg/dL Calcium (8.6-10.4) mg/dl Phosphorus (2.5-4.5) mg/dL Magnesium (1.6-2.3) mg/dL Total Bilirubin (0.2-1.3) mg/dL AST (14-36) U/L ALT (9-52) U/L Alkaline Phosphatase (38-126) U/L Total Protein (6.3-8.3) g/dL Albumin (3.5-5.0) g/dL Globulin (2.2-3.9) gm/dL Albumin/Globulin Ratio (1.0-2.1) Laboratory Results - last 24 hr 12/27/17 12/27/17 12/27/17 11:19 17:28 23:38 WBC RBC Hgb Hct MCV MCH MCHC RDW Plt Count MPV Neut % (Auto) Lymph % (Auto) [place] % (Auto) Eos % (Auto) Baso % (Auto) Neut # (Auto) Lymph # (Auto) [place] # (Auto) Eos # (Auto) Baso # (Auto) Neutrophils % (Manual) Band Neutrophils % Lymphocytes % (Manual) Monocytes % (Manual) Eosinophils % (Manual) Platelet Estimate Plt Clumps, EDTA Polychromasia Hypochromasia (manual) Poikilocytosis (manual Anisocytosis (manual) Tear Drop Cells Ovalocytes Puncture Site pCO2 pO2 HCO3 ABG pH ABG Total CO2 ABG O2 Saturation ABG Base Excess ABG Hemoglobin ABG Carboxyhemoglobin POC ABG HHb (Measured) ABG Methemoglobin Richard Test A-a O2 Difference Respiratory Index Hgb O2 Saturation Vent Mode Mechanical Rate FiO2 Tidal Volume PEEP Sodium Potassium Chloride Carbon Dioxide Anion Gap BUN Creatinine Est GFR ( Amer) Est GFR (Non-Af Amer) POC Glucose (mg/dL) 121 H 114 H 164 H Random Glucose Calcium Phosphorus Magnesium Total Bilirubin AST ALT Alkaline Phosphatase Total Protein Albumin Globulin Albumin/Globulin Ratio 12/28/17 12/28/17 12/28/17 05:22 06:30 06:30 WBC 16.2 H RBC 2.83 L Hgb 8.0 L Hct 23.8 L MCV 84.0 MCH 28.3 MCHC 33.7 RDW 14.5 Plt Count 183 MPV 9.8 Neut % (Auto) 81.9 H Lymph % (Auto) 8.2 L [place] % (Auto) 7.9 Eos % (Auto) 1.4 Baso % (Auto) 0.6 Neut # (Auto) 13.2 H Lymph # (Auto) 1.3 [place] # (Auto) 1.3 H Eos # (Auto) 0.2 Baso # (Auto) 0.1 Neutrophils % (Manual) 73 Band Neutrophils % 8 H Lymphocytes % (Manual) 11 L Monocytes % (Manual) 7 Eosinophils % (Manual) 1 Platelet Estimate Normal Plt Clumps, EDTA Present Polychromasia Slight Hypochromasia (manual) Slight Poikilocytosis (manual Slight Anisocytosis (manual) Slight Tear Drop Cells Slight Ovalocytes Slight Puncture Site Lr pCO2 34 L pO2 83 HCO3 25.3 ABG pH 7.46 H ABG Total CO2 25.2 ABG O2 Saturation 98.8 H ABG Base Excess 0.5 ABG Hemoglobin 8.4 L ABG Carboxyhemoglobin 2.0 H POC ABG HHb (Measured) 1.2 ABG Methemoglobin 1.0 Richard Test Pos A-a O2 Difference 160.0 Respiratory Index 1.9 Hgb O2 Saturation 95.8 Vent Mode Aprv Mechanical Rate 14 FiO2 40.0 Tidal Volume 450 PEEP 5 Sodium 141 Potassium 4.0 Chloride 103 Carbon Dioxide 25 Anion Gap 17 BUN 50 H Creatinine 4.8 H Est GFR ( Amer) 11 Est GFR (Non-Af Amer) 9 POC Glucose (mg/dL) Random Glucose 168 H Calcium 7.3 L Phosphorus 4.7 H Magnesium 2.0 Total Bilirubin 0.9 AST 31 ALT 25 Alkaline Phosphatase 67 Total Protein 6.0 L Albumin 2.8 L Globulin 3.2 Albumin/Globulin Ratio 0.9 L 12/28/17 06:47 WBC RBC Hgb Hct MCV MCH MCHC RDW Plt Count MPV Neut % (Auto) Lymph % (Auto) [place] % (Auto) Eos % (Auto) Baso % (Auto) Neut # (Auto) Lymph # (Auto) [place] # (Auto) Eos # (Auto) Baso # (Auto) Neutrophils % (Manual) Band Neutrophils % Lymphocytes % (Manual) Monocytes % (Manual) Eosinophils % (Manual) Platelet Estimate Plt Clumps, EDTA Polychromasia Hypochromasia (manual) Poikilocytosis (manual Anisocytosis (manual) Tear Drop Cells Ovalocytes Puncture Site pCO2 pO2 HCO3 ABG pH ABG Total CO2 ABG O2 Saturation ABG Base Excess ABG Hemoglobin ABG Carboxyhemoglobin POC ABG HHb (Measured) ABG Methemoglobin Richard Test A-a O2 Difference Respiratory Index Hgb O2 Saturation Vent Mode Mechanical Rate FiO2 Tidal Volume PEEP Sodium Potassium Chloride Carbon Dioxide Anion Gap BUN Creatinine Est GFR ( Amer) Est GFR (Non-Af Amer) POC Glucose (mg/dL) 171 H Random Glucose Calcium Phosphorus Magnesium Total Bilirubin AST ALT Alkaline Phosphatase Total Protein Albumin Globulin Albumin/Globulin Ratio Fingerstick Blood Sugar Results: 171 Critical Care Progress Note - Nutrition Nutrition: Nutrition Category Date Time Status NPO Diet [DIET] Diets 12/20/17 Dinner Active Assessment/Plan - Assessment and Plan (Free Text) Assessment: This is a 77yo female with history of hypertension, COPD, breast cancer s/p lumpectomy that presented to same day 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 During the procedure, patient experienced a significant amount of bleeding which was treated with a combination of clipping , electrocautery and epinephrine. Bleeding was significantly reduced however patient was subsequently admitted to ICU for close observation. Patient was admitted to ICU due to SBP 220/140s initially on cardene drip x 1 - 2 hours. Returned to OR 12/18/17 due to increasing free air noted on repeat CT scan ; s/p ex lap primary repair of duodenal perforation, jourdan patch. Omentectomy. Picc line placed 12/20/17 Right shiley catheter placed - 12/20 - removed 12/24. Permacath placed 12/25. Dialysis 12/25 and 1 unit PRBC transfused --- > Dialysis , 12/21, 12/25 12/25 bedside I & D of abdominal wall abscess, wound cultures sent - tanvi - patient has been on micafungin 12/21 12/28 plan for an additional drain to be placed by IR. Possible GJ tube placement. 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 Alatorre - Previous hemorrhage - stabilized with a combination of clipping, electrocautery and epinephrine - PPI Q12 - Ct chest, abdomen, pelvis 2/2 abdominal pain and guarding on exam: Mild increase in the extent of pneumoperitoneum. Increasing ascites. Extensive gas adjacent to 2nd duodenum and nasim hepatis. Status post cholecystectomy. Nasogastric tube. Fluid in retroperitoneum and gas in perinephric space on right side. Cannot rule out pancreatitis. Please correlate. Trace right pleural effusion. No pulmonary infiltrate. - Upper GI series - Free air noted - As per surgery patient is for OR due to increasing free air ; s/p ex lap primary repair of duodenal perforation, jourdan patch. Omentectomy. 12/18 - Repeat CT Scan with PO contrast: Demonstration of duodenal perforation at the time of this examination with oral contrast administered prior to the examination seen extrinsic to the duodenum, in the right pericolic gutter extending down to the level of the right ileo psoas. There is questionable low- density collection in the inferior extent of the right rectus sheath though there is no oral contrast seen in this location. The surgical drain currently in place traverses the major portion of the extrinsic intraperitoneal/ retroperitoneal contrast collection. - Possible IR drain to be placed by IR - Started Octreotide drip 12/27/17 A: Pancreatitis? - Noted on CT C/ab/pel: Limited study. There are linear atelectatic and or scarring changes seen in the right and left upper lobes as well as the left lower lobe. Cholecystectomy with in situ drainage catheter. . Findings are consistent with acute pancreatitis with peripancreatic infiltration and small amount of fluid extending into the right para renal space. - Lipase- elevated A: Pancreatic nodule - Questionable 9 mm rounded fluid density mass in the pancreatic body. This was not clearly appreciated on prior CT examination of 12/16/2017. Further evaluation is advised when clinically feasible with multiphasic contrast- enhanced CT. A: Transaminitis, Elevated T. Bili - RESOLVED - Viral hepatitis - negative - Abominal US - Diffuse increased echogenicity in the liver may reflect hepatic steatosis however parenchymal infectious/ inflammatory etiologies cannot be entirely excluded. Clinical and laboratory correlation is advised. Mild perihepatic ascites. Endo: A: Thyroid Nodule - There is a 1.9 cm mass in the lower pole of the left thyroid lobe. - Correlate with thyroid ultrasound examination. A: Hypocalcemia - Repleting A: IGT - HgA1c 5.9 Renal: A: ARF - Improving with HD - 2/2 ATN - MWF schedule - Avoid nephrotoxic drugs - Abdominal US- no sign of renal obstruction - Inserted bruce - Right Shiley catheter inserted 12/20- removed 12/24 - Permacath placed 12/25/17 - Dialysis 12/20, 12/21, 12/23, 12/25 ID: A: SIRS, Bandemia - resolving ID Consulted - Dr. Quinonez - Afebrile, vitals stable, no leukocytosis, no source of infection - Patient was prince-cultured 12/17/17 - all negative - Bandemia increasing- 61, Procal - 12.04 --> 20, lactate 2.4--> 1.7 - Meropenem renally dosed started 12/18/17, Micafungin 100mg Q12 started 12/21, started Amikacin 750mg Q48H and Daptomycin 600mg Q48H - 12/26 A: Fever - All Cultures negative to date - Right dialysis catheter removed 12/24 - culture negative to date - Repeat cultures -negative to date A: Abdominal wall abscess - S/P I&D 12/25/17 - Micafungin 100mg Q12 started 12/21 - Wound culture - Tanvi A: Diarrhea - Likely 2 to abx - Diff- negative, probiotic started Heme/ Onc: A: Anemia - Hemoglobin baseline - - CT chest, ab, pelvis - no evidence of internal hemorrhage - S/P 1 unit 12/20, 2nd unit transfused 12/25, 3rd unit transfused 12/25 - Continue to monitor A: Hx breast cancer s/p lumpectomy Prophylaxis - PPI Q12 - SCDs, VTE c/i post op / concern for bleeding - Right PICC line 12/20, Right shiley cath inserted 12/20 - REMOVED 12/24, R Permacath placed 12/25 - Currently on TPN DW Estefania Sosa DO, PGY-1 <Milton Garcia M - Last Filed: 12/28/17 12:27> CCU Objective - Vital Signs / Intake & Output Vital Signs (Last 4 hours): Vital Signs Temp Pulse Resp BP Pulse Ox 12/28/17 12:00 101 F H 90 28 H 100 12/28/17 11:14 90 27 H 106/27 L 100 12/28/17 11:00 91 H 26 H 100 12/28/17 10:16 99 H 12 83/36 L 99 12/28/17 10:15 99 H 29 H 81/36 L 99 12/28/17 10:14 99 H 31 H 76/36 L 99 12/28/17 10:00 97 H 28 H 99 12/28/17 09:31 101.3 F H 12/28/17 09:13 99 H 22 103/46 L 99 12/28/17 09:00 103 H 29 H 99 Intake and Output (Last 8hrs): Intake & Output 12/27/17 12/28/17 12/28/17 22:59 06:59 14:59 Intake Total 440 840 240 Output Total 380 660 170 Balance 60 180 70 Weight 253 lb 8.505 oz Intake: Intake, IV Amount 440 840 240 Right Distal Port PICC 300 800 100 Right PICC 40 40 40 right picc 2nd port 100 100 Output: Drainage 380 560 170 KORI 1 100 360 100 KORI 2 80 200 70 mouth OGT 200 Urine 100 0 Urine, Voided 100 0 Other: # Bowel Movements 1 - Medications Active Medications: Active Medications Generic Name Dose Route Start Last Admin Trade Name Freq PRN Reason Stop Dose Admin Acetaminophen 650 mg 12/28/17 10:14 Tylenol 650 Mg Supp OR Q6 PRN Fever >100.4 F Albumin Human 25 gm 12/27/17 14:37 12/27/17 15:45 Albumin Human 25% (12.5 Gm/50 Ml) IV 25 gm MWF PRN Administration Other Albuterol/Ipratropium 3 ml 12/28/17 12:00 12/28/17 11:50 Duoneb 3 Mg/0.5 Mg (3 Ml) Ud INH 3 ml RQ4 FESTUS Administration Dextrose 0 ml 12/16/17 12:08 Dextrose 50% Inj IV STAT PRN Hypoglycemia Protocol Protocol Dextrose 15 gm 12/16/17 12:08 Glutose 15 PO ONCE PRN Hypoglycemia Protocol Protocol Epoetin Juan F 8,000 unit 12/25/17 15:00 12/27/17 17:40 Procrit IV 12/30/17 09:01 8,000 unit MWF FESTUS Administration Glucagon 1 mg 12/16/17 12:08 Glucagen Diagnostic Kit IM STAT PRN Hypoglycemia Protocol Protocol Heparin Sodium (Porcine) 3,700 units 12/25/17 16:46 12/27/17 17:40 Heparin IVP 3,700 units MWF FESTUS Administration Dextrose 1,000 mls @ 0 mls/hr 12/16/17 12:08 Dextrose 5% In Water 1000 Ml IV .Q0M PRN Hypoglycemia Protocol Protocol Per Protocol Meropenem 500 mg/ Sodium 100 mls @ 100 mls/hr 12/18/17 10:00 12/28/17 09:31 Chloride IVPB 100 mls/hr Q12 FESTUS Administration Protocol Micafungin Sodium 100 mg/ 100 mls @ 100 mls/hr 12/21/17 10:00 12/28/17 09:31 Sodium Chloride IV 100 mls/hr Q24H FSETUS Administration Protocol Amikacin Sulfate 750 mg/ 253 mls @ 250 mls/hr 12/26/17 20:30 12/26/17 20:45 Sodium Chloride IVPB 250 mls/hr Q48H FESTUS Administration Protocol Daptomycin 600 mg/ Sodium 100 mls @ 100 mls/hr 12/26/17 19:30 12/26/17 19:45 Chloride IV 12/31/17 19:31 100 mls/hr Q48H FESTUS Administration Protocol Dexmedetomidine HCl 200 mcg/ 50 mls @ 5.75 mls/hr 12/27/17 10:30 Sodium Chloride IV TITR PRN Agitation Protocol 0.2 MCG/KG/HR Octreotide Acetate 1,250 mcg/ 252.5 mls @ 10.1 mls/hr 12/28/17 10:13 11:13 Sodium Chloride IV 10.1 mls/hr .Q24H FESTUS Administration Protocol 50 MCG/HR Sodium Chloride 35 meq/ 1,030.1663 mls @ 42 mls/hr 12/28/17 18:00 Magnesium Sulfate 3 meq/ IV 12/29/17 17:59 Calcium Gluconate 4.5 meq/ .Q24H ONE Multivitamins/Vitamin C 10 ml/ Heparin Sodium (Porcine) 1, 000 units/ Amino Acids Insulin Human Regular 0 unit 12/19/17 00:00 12/28/17 12:12 Novolin R SC Not Given Q6 FESTUS Protocol Pantoprazole Sodium 40 mg 12/23/17 22:00 12/28/17 09:31 Protonix Inj IVP 40 mg Q12H FESTUS Administration Saccharomyces Boulardii 250 mg 12/23/17 22:00 12/28/17 09:31 Florastor PO 250 mg Q12 FESTUS Administration - Patient Studies Lab Studies: Microbiology Studies 12/24/17 09:41 Blood Culture - Preliminary Blood-Thru Central Line NO GROWTH AFTER 4 DAYS 12/25/17 17:05 Gram Stain - Final Abdomen Wound Culture - Final Tanvi Albicans 12/25/17 12:48 Gram Stain - Final Abdomen Wound Culture - Final Tanvi Albicans 12/24/17 14:20 Blood Culture - Preliminary Blood-Thru Central Line NO GROWTH AFTER 3 DAYS 12/25/17 09:41 Gram Stain - Final Sputum Induced Sputum Culture - Final NORMAL ORAL RAMEZ 12/24/17 12:36 Catheter Tip Culture - Final Femer Right No growth. Lab Studies 12/28/17 12/28/17 12/28/17 Range/Units 11:29 06:47 06:30 WBC (4.8-10.8) K/uL RBC (3.80-5.20) Mil/uL Hgb (11.0-16.0) g/dL Hct (34.0-47.0) % MCV (81.0-99.0) fL MCH (27.0-31.0) pg MCHC (33.0-37.0) g/dL RDW (11.5-14.5) % Plt Count (130-400) K/uL MPV (7.2-11.7) fL Neut % (Auto) (50.0-75.0) % Lymph % (Auto) (20.0-40.0) % [place] % (Auto) (0.0-10.0) % Eos % (Auto) (0.0-4.0) % Baso % (Auto) (0.0-2.0) % Neut # (Auto) (1.8-7.0) K/uL Lymph # (Auto) (1.0-4.3) K/uL [place] # (Auto) (0.0-0.8) K/uL Eos # (Auto) (0.0-0.7) K/uL Baso # (Auto) (0.0-0.2) K/uL Neutrophils % (Manual) (50-75) % Band Neutrophils % (0-2) % Lymphocytes % (Manual) (20-40) % Monocytes % (Manual) (0-10) % Eosinophils % (Manual) (0-4) % Platelet Estimate (NORMAL) Plt Clumps, EDTA Polychromasia Hypochromasia (manual) Poikilocytosis (manual Anisocytosis (manual) Tear Drop Cells Ovalocytes Puncture Site pCO2 (35-45) mm/Hg pO2 (80-100) mm/Hg HCO3 (21-28) mmol/L ABG pH (7.35-7.45) ABG Total CO2 (22-28) mmol/L ABG O2 Saturation (95-98) % ABG Base Excess (-2.0-3.0) mmol/L ABG Hemoglobin (11.7-17.4) g/dL ABG Carboxyhemoglobin (0.5-1.5) % POC ABG HHb (Measured) (0.0-5.0) % ABG Methemoglobin (0.0-3.0) % Richard Test A-a O2 Difference mm/Hg Respiratory Index Hgb O2 Saturation (95.0-98.0) % Vent Mode Mechanical Rate FiO2 % Tidal Volume PEEP Sodium 141 (132-148) mmol/L Potassium 4.0 (3.6-5.2) mmol/L Chloride 103 (98-107) mmol/L Carbon Dioxide 25 (22-30) mmol/L Anion Gap 17 (10-20) BUN 50 H (7-17) mg/dL Creatinine 4.8 H (0.7-1.2) mg/dL Est GFR ( Amer) 11 Est GFR (Non-Af Amer) 9 POC Glucose (mg/dL) 143 H 171 H (65-110) mg/dL Random Glucose 168 H (65-105) mg/dL Calcium 7.3 L (8.6-10.4) mg/dl Phosphorus 4.7 H (2.5-4.5) mg/dL Magnesium 2.0 (1.6-2.3) mg/dL Total Bilirubin 0.9 (0.2-1.3) mg/dL AST 31 (14-36) U/L ALT 25 (9-52) U/L Alkaline Phosphatase 67 (38-126) U/L Total Protein 6.0 L (6.3-8.3) g/dL Albumin 2.8 L (3.5-5.0) g/dL Globulin 3.2 (2.2-3.9) gm/dL Albumin/Globulin Ratio 0.9 L (1.0-2.1) 12/28/17 12/28/17 12/27/17 Range/Units 06:30 05:22 23:38 WBC 16.2 H (4.8-10.8) K/uL RBC 2.83 L (3.80-5.20) Mil/uL Hgb 8.0 L (11.0-16.0) g/dL Hct 23.8 L (34.0-47.0) % MCV 84.0 (81.0-99.0) fL MCH 28.3 (27.0-31.0) pg MCHC 33.7 (33.0-37.0) g/dL RDW 14.5 (11.5-14.5) % Plt Count 183 (130-400) K/uL MPV 9.8 (7.2-11.7) fL Neut % (Auto) 81.9 H (50.0-75.0) % Lymph % (Auto) 8.2 L (20.0-40.0) % [place] % (Auto) 7.9 (0.0-10.0) % Eos % (Auto) 1.4 (0.0-4.0) % Baso % (Auto) 0.6 (0.0-2.0) % Neut # (Auto) 13.2 H (1.8-7.0) K/uL Lymph # (Auto) 1.3 (1.0-4.3) K/uL [place] # (Auto) 1.3 H (0.0-0.8) K/uL Eos # (Auto) 0.2 (0.0-0.7) K/uL Baso # (Auto) 0.1 (0.0-0.2) K/uL Neutrophils % (Manual) 73 (50-75) % Band Neutrophils % 8 H (0-2) % Lymphocytes % (Manual) 11 L (20-40) % Monocytes % (Manual) 7 (0-10) % Eosinophils % (Manual) 1 (0-4) % Platelet Estimate Normal (NORMAL) Plt Clumps, EDTA Present Polychromasia Slight Hypochromasia (manual) Slight Poikilocytosis (manual Slight Anisocytosis (manual) Slight Tear Drop Cells Slight Ovalocytes Slight Puncture Site Lr pCO2 34 L (35-45) mm/Hg pO2 83 (80-100) mm/Hg HCO3 25.3 (21-28) mmol/L ABG pH 7.46 H (7.35-7.45) ABG Total CO2 25.2 (22-28) mmol/L ABG O2 Saturation 98.8 H (95-98) % ABG Base Excess 0.5 (-2.0-3.0) mmol/L ABG Hemoglobin 8.4 L (11.7-17.4) g/dL ABG Carboxyhemoglobin 2.0 H (0.5-1.5) % POC ABG HHb (Measured) 1.2 (0.0-5.0) % ABG Methemoglobin 1.0 (0.0-3.0) % Richard Test Pos A-a O2 Difference 160.0 mm/Hg Respiratory Index 1.9 Hgb O2 Saturation 95.8 (95.0-98.0) % Vent Mode Aprv Mechanical Rate 14 FiO2 40.0 % Tidal Volume 450 PEEP 5 Sodium (132-148) mmol/L Potassium (3.6-5.2) mmol/L Chloride (98-107) mmol/L Carbon Dioxide (22-30) mmol/L Anion Gap (10-20) BUN (7-17) mg/dL Creatinine (0.7-1.2) mg/dL Est GFR ( Amer) Est GFR (Non-Af Amer) POC Glucose (mg/dL) 164 H (65-110) mg/dL Random Glucose (65-105) mg/dL Calcium (8.6-10.4) mg/dl Phosphorus (2.5-4.5) mg/dL Magnesium (1.6-2.3) mg/dL Total Bilirubin (0.2-1.3) mg/dL AST (14-36) U/L ALT (9-52) U/L Alkaline Phosphatase (38-126) U/L Total Protein (6.3-8.3) g/dL Albumin (3.5-5.0) g/dL Globulin (2.2-3.9) gm/dL Albumin/Globulin Ratio (1.0-2.1) 12/27/17 Range/Units 17:28 WBC (4.8-10.8) K/uL RBC (3.80-5.20) Mil/uL Hgb (11.0-16.0) g/dL Hct (34.0-47.0) % MCV (81.0-99.0) fL MCH (27.0-31.0) pg MCHC (33.0-37.0) g/dL RDW (11.5-14.5) % Plt Count (130-400) K/uL MPV (7.2-11.7) fL Neut % (Auto) (50.0-75.0) % Lymph % (Auto) (20.0-40.0) % [place] % (Auto) (0.0-10.0) % Eos % (Auto) (0.0-4.0) % Baso % (Auto) (0.0-2.0) % Neut # (Auto) (1.8-7.0) K/uL Lymph # (Auto) (1.0-4.3) K/uL [place] # (Auto) (0.0-0.8) K/uL Eos # (Auto) (0.0-0.7) K/uL Baso # (Auto) (0.0-0.2) K/uL Neutrophils % (Manual) (50-75) % Band Neutrophils % (0-2) % Lymphocytes % (Manual) (20-40) % Monocytes % (Manual) (0-10) % Eosinophils % (Manual) (0-4) % Platelet Estimate (NORMAL) Plt Clumps, EDTA Polychromasia Hypochromasia (manual) Poikilocytosis (manual Anisocytosis (manual) Tear Drop Cells Ovalocytes Puncture Site pCO2 (35-45) mm/Hg pO2 (80-100) mm/Hg HCO3 (21-28) mmol/L ABG pH (7.35-7.45) ABG Total CO2 (22-28) mmol/L ABG O2 Saturation (95-98) % ABG Base Excess (-2.0-3.0) mmol/L ABG Hemoglobin (11.7-17.4) g/dL ABG Carboxyhemoglobin (0.5-1.5) % POC ABG HHb (Measured) (0.0-5.0) % ABG Methemoglobin (0.0-3.0) % Richard Test A-a O2 Difference mm/Hg Respiratory Index Hgb O2 Saturation (95.0-98.0) % Vent Mode Mechanical Rate FiO2 % Tidal Volume PEEP Sodium (132-148) mmol/L Potassium (3.6-5.2) mmol/L Chloride (98-107) mmol/L Carbon Dioxide (22-30) mmol/L Anion Gap (10-20) BUN (7-17) mg/dL Creatinine (0.7-1.2) mg/dL Est GFR ( Amer) Est GFR (Non-Af Amer) POC Glucose (mg/dL) 114 H (65-110) mg/dL Random Glucose (65-105) mg/dL Calcium (8.6-10.4) mg/dl Phosphorus (2.5-4.5) mg/dL Magnesium (1.6-2.3) mg/dL Total Bilirubin (0.2-1.3) mg/dL AST (14-36) U/L ALT (9-52) U/L Alkaline Phosphatase (38-126) U/L Total Protein (6.3-8.3) g/dL Albumin (3.5-5.0) g/dL Globulin (2.2-3.9) gm/dL Albumin/Globulin Ratio (1.0-2.1) Laboratory Results - last 24 hr 12/27/17 12/27/17 12/28/17 17:28 23:38 05:22 WBC RBC Hgb Hct MCV MCH MCHC RDW Plt Count MPV Neut % (Auto) Lymph % (Auto) [place] % (Auto) Eos % (Auto) Baso % (Auto) Neut # (Auto) Lymph # (Auto) [place] # (Auto) Eos # (Auto) Baso # (Auto) Neutrophils % (Manual) Band Neutrophils % Lymphocytes % (Manual) Monocytes % (Manual) Eosinophils % (Manual) Platelet Estimate Plt Clumps, EDTA Polychromasia Hypochromasia (manual) Poikilocytosis (manual Anisocytosis (manual) Tear Drop Cells Ovalocytes Puncture Site Lr pCO2 34 L pO2 83 HCO3 25.3 ABG pH 7.46 H ABG Total CO2 25.2 ABG O2 Saturation 98.8 H ABG Base Excess 0.5 ABG Hemoglobin 8.4 L ABG Carboxyhemoglobin 2.0 H POC ABG HHb (Measured) 1.2 ABG Methemoglobin 1.0 Richard Test Pos A-a O2 Difference 160.0 Respiratory Index 1.9 Hgb O2 Saturation 95.8 Vent Mode Aprv Mechanical Rate 14 FiO2 40.0 Tidal Volume 450 PEEP 5 Sodium Potassium Chloride Carbon Dioxide Anion Gap BUN Creatinine Est GFR ( Amer) Est GFR (Non-Af Amer) POC Glucose (mg/dL) 114 H 164 H Random Glucose Calcium Phosphorus Magnesium Total Bilirubin AST ALT Alkaline Phosphatase Total Protein Albumin Globulin Albumin/Globulin Ratio 12/28/17 12/28/17 12/28/17 06:30 06:30 06:47 WBC 16.2 H RBC 2.83 L Hgb 8.0 L Hct 23.8 L MCV 84.0 MCH 28.3 MCHC 33.7 RDW 14.5 Plt Count 183 MPV 9.8 Neut % (Auto) 81.9 H Lymph % (Auto) 8.2 L [place] % (Auto) 7.9 Eos % (Auto) 1.4 Baso % (Auto) 0.6 Neut # (Auto) 13.2 H Lymph # (Auto) 1.3 [place] # (Auto) 1.3 H Eos # (Auto) 0.2 Baso # (Auto) 0.1 Neutrophils % (Manual) 73 Band Neutrophils % 8 H Lymphocytes % (Manual) 11 L Monocytes % (Manual) 7 Eosinophils % (Manual) 1 Platelet Estimate Normal Plt Clumps, EDTA Present Polychromasia Slight Hypochromasia (manual) Slight Poikilocytosis (manual Slight Anisocytosis (manual) Slight Tear Drop Cells Slight Ovalocytes Slight Puncture Site pCO2 pO2 HCO3 ABG pH ABG Total CO2 ABG O2 Saturation ABG Base Excess ABG Hemoglobin ABG Carboxyhemoglobin POC ABG HHb (Measured) ABG Methemoglobin Richard Test A-a O2 Difference Respiratory Index Hgb O2 Saturation Vent Mode Mechanical Rate FiO2 Tidal Volume PEEP Sodium 141 Potassium 4.0 Chloride 103 Carbon Dioxide 25 Anion Gap 17 BUN 50 H Creatinine 4.8 H Est GFR ( Amer) 11 Est GFR (Non-Af Amer) 9 POC Glucose (mg/dL) 171 H Random Glucose 168 H Calcium 7.3 L Phosphorus 4.7 H Magnesium 2.0 Total Bilirubin 0.9 AST 31 ALT 25 Alkaline Phosphatase 67 Total Protein 6.0 L Albumin 2.8 L Globulin 3.2 Albumin/Globulin Ratio 0.9 L 12/28/17 11:29 WBC RBC Hgb Hct MCV MCH MCHC RDW Plt Count MPV Neut % (Auto) Lymph % (Auto) [place] % (Auto) Eos % (Auto) Baso % (Auto) Neut # (Auto) Lymph # (Auto) [place] # (Auto) Eos # (Auto) Baso # (Auto) Neutrophils % (Manual) Band Neutrophils % Lymphocytes % (Manual) Monocytes % (Manual) Eosinophils % (Manual) Platelet Estimate Plt Clumps, EDTA Polychromasia Hypochromasia (manual) Poikilocytosis (manual Anisocytosis (manual) Tear Drop Cells Ovalocytes Puncture Site pCO2 pO2 HCO3 ABG pH ABG Total CO2 ABG O2 Saturation ABG Base Excess ABG Hemoglobin ABG Carboxyhemoglobin POC ABG HHb (Measured) ABG Methemoglobin [place] Test A-a O2 Difference Respiratory Index Hgb O2 Saturation Vent Mode Mechanical Rate FiO2 Tidal Volume PEEP Sodium Potassium Chloride Carbon Dioxide Anion Gap BUN Creatinine Est GFR ( Amer) Est GFR (Non-Af Amer) POC Glucose (mg/dL) 143 H Random Glucose Calcium Phosphorus Magnesium Total Bilirubin AST ALT Alkaline Phosphatase Total Protein Albumin Globulin Albumin/Globulin Ratio Critical Care Progress Note - Nutrition Nutrition: Nutrition Category Date Time Status NPO Diet [DIET] Diets 12/20/17 Dinner Active Assessment/Plan - Assessment and Plan (Free Text) Plan: Above resident note reviewed and verified. Patient remains NPO -continue CPAP -continue IV ABX -Surgery/Gi input regarding duodenal pathology. -continue to monitor - Date & Time Date: 12/28/17 Time: 12:27
[2017-12-28] MEDS: Albuterol-Ipratrop 3 mg / 0.5 (3 ml) UD INH SCH ×3 (11:50→20:06)
--- NOTE | 2017-12-28 11:58 | CP.PCM.PN ---
Subjective - Date & Time of Evaluation Date of Evaluation: 12/28/17 Time of Evaluation: 08:00 - Subjective Subjective: Seen and examined this morning. Patient is awake and responsive. Patient has both KORI drain with bilious fluid(J1 620,J2 370) s/p EGD and clipping of duodenal Objective - Vital Signs/Intake and Output Vital Signs (last 24 hours): Temp Pulse Resp BP Pulse Ox 101.3 F H 91 H 26 H 83/36 L 100 12/28/17 09:31 12/28/17 11:00 12/28/17 11:00 12/28/17 10:16 12/28/17 11:00 Intake and Output: 12/28/17 12/28/17 06:59 18:59 Intake Total 1260 230 Output Total 910 170 Balance 350 60 - Medications Medications: Current Medications Acetaminophen (Tylenol 650 Mg Supp) 650 mg NE Q6 PRN PRN Reason: Fever >100.4 F Albumin Human (Albumin Human 25% (12.5 Gm/50 Ml)) 25 gm IV MWF PRN PRN Reason: Other Last Admin: 12/27/17 15:45 Dose: 25 gm Albuterol/Ipratropium (Duoneb 3 Mg/0.5 Mg (3 Ml) Ud) 3 ml INH RQ4 [facility] [place] Last Admin: 12/28/17 11:50 Dose: 3 ml Dextrose (Dextrose 50% Inj) 0 ml IV STAT PRN; Protocol PRN Reason: Hypoglycemia Protocol Dextrose (Glutose 15) 15 gm PO ONCE PRN; Protocol PRN Reason: Hypoglycemia Protocol Epoetin Juan F (Procrit) 8,000 unit IV [facility] [place] Stop: 12/30/17 09:01 Last Admin: 12/27/17 17:40 Dose: 8,000 unit Glucagon (Glucagen Diagnostic Kit) 1 mg IM STAT PRN; Protocol PRN Reason: Hypoglycemia Protocol Heparin Sodium (Porcine) (Heparin) 3,700 units IVP [facility] [place] Last Admin: 12/27/17 17:40 Dose: 3,700 units Dextrose (Dextrose 5% In Water 1000 Ml) 1,000 mls @ 0 mls/hr IV .Q0M PRN; Protocol; Per Protocol PRN Reason: Hypoglycemia Protocol Meropenem 500 mg/ Sodium (Chloride) 100 mls @ 100 mls/hr IVPB Q12 [facility] PRN Reason: Protocol Last Admin: 12/28/17 09:31 Dose: 100 mls/hr Micafungin Sodium 100 mg/ (Sodium Chloride) 100 mls @ 100 mls/hr IV Q24H [facility] PRN Reason: Protocol Last Admin: 12/28/17 09:31 Dose: 100 mls/hr Amikacin Sulfate 750 mg/ (Sodium Chloride) 253 mls @ 250 mls/hr IVPB Q48H [facility] PRN Reason: Protocol Last Admin: 12/26/17 20:45 Dose: 250 mls/hr Daptomycin 600 mg/ Sodium (Chloride) 100 mls @ 100 mls/hr IV Q48H [facility] PRN Reason: Protocol Stop: 12/31/17 19:31 Last Admin: 12/26/17 19:45 Dose: 100 mls/hr Dexmedetomidine HCl 200 mcg/ (Sodium Chloride) 50 mls @ 5.75 mls/hr IV TITR PRN ; Protocol; 0.2 MCG/KG/HR PRN Reason: Agitation Octreotide Acetate 1,250 mcg/ (Sodium Chloride) 252.5 mls @ 10.1 mls/hr IV .Q24H [facility]; 50 MCG/HR PRN Reason: Protocol Last Admin: 12/28/17 11:13 Dose: 10.1 mls/hr Insulin Human Regular (Novolin R) 0 unit SC Q6 [facility] PRN Reason: Protocol Last Admin: 12/28/17 06:40 Dose: Not Given Pantoprazole Sodium (Protonix Inj) 40 mg IVP Q12H [facility] [place] Last Admin: 12/28/17 09:31 Dose: 40 mg Saccharomyces Boulardii (Florastor) 250 mg PO Q12 [facility] Last Admin: 12/28/17 09:31 Dose: 250 mg - Labs Labs: 12/28/17 06:30 12/28/17 06:30 PT 14.0 SECONDS (9.7-12.2) H 12/24/17 08:54 INR 1.3 12/24/17 08:54 APTT 40 SECONDS (21-34) H 12/18/17 12:39 Assessment and Plan - Assessment and Plan (Free Text) Assessment: This is a 77 y/o female with history of hypertension, COPD, breast cancer s/p lumpectomy and 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 she also had HTN crisis which was treated with cardene drip. Patient was admitted to ICU Returned to OR on 12/18/17 due to increasing free air noted on repeat CT scan and underwent s/p ex lap primary repair of duodenal perforation, jourdan patch. Omentectomy. Patient developed acute renal failure /ATN likely due to hydrodynamic injury leading to ATN Right shiley catheter placed - 12/20 - removed 12/24. Dialysis 12/20 and 12/21. Permacath placed 12/25. Dialysis 12/25 and 1 unit PRBC transfused. Patient was having fever spikes with negative cultures CT with oral contrast done on 12/27 showed duodenal perforation/leak. Patient had Endoscopic closure using clips by Dr Flynn on 12/27/2017 Plan: 1.s/p acute abdomen with duodenal perforation Patient had endoscopic resection of duodenal carcinoid tumor on 12/16/2017 Ct reported intraperitoneal air and patient underwent Exploratory lap and repair of perforation on 12/19. Patient is on antibiotics as per Dr Quinonez.continue Amikacin, Meropenem, Micafungin and daptomycin patient has fever spikes,abdominal wall culture growing tanvi albicans Patient just had CT chest,abdomen and pelvis without contrast yesterday CT scan repeated with oral contrast showed done on 12/27 showed duodenal perforation/leak. Patient had Endoscopic closure using clips by Dr Flynn on 12/27 KORI drains continue to have bilious output with concern for persistent duodenal leak GI recommend additional IR drain and consider placement of J-tube for feeding Keep NPO, on TPN 2. 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 Acute renal failure/Oliguric/ATN started on dialysis on 12/20 Right shiley catheter placed - 12/20 - removed 12/24. Dialysis 12/20 and 12/21. Permacath placed 12/25. Dialysis 12/25 HD on MWF as per nephrology .continue to monitor for spontaneous renal recovery we will follow with nephrology medication dose adjustment with Renal function and avoid nephrotoxic meds. 4. Hypertension Improved 5.Fever-She has fever spikes wbc remains high continue Amikacin, Meropenem,Micafungin and daptomycin as per Dr Quinonez. 6.Reparatory failure Weaning as per ICU team 7.Anemia- stool OB negative s/p PRBC transfused. Continue epogen 8.DVT prophylaxis is on heparin SQ and GI prophylaxis is on protonix
--- NOTE | 2017-12-28 15:51 | CP.PCM.PN ---
<Peewee [place] - Last Filed: 12/28/17 15:48> Subjective - Date & Time of Evaluation Date of Evaluation: 12/28/17 Time of Evaluation: 15:48 - Subjective Subjective: General Surgery Progress Note for Dr. Alatorre Pt was seen and evalulated this AM at bedside. She is moving and awake currently on the ventilator, she shakes her head no when asked about pain. Her drains are still having high output bilious output. Objective - Vital Signs/Intake and Output Vital Signs (last 24 hours): Temp Pulse Resp BP Pulse Ox 99.0 F 89 19 111/38 L 100 12/28/17 13:22 12/28/17 15:13 12/28/17 15:13 12/28/17 15:13 12/28/17 15:13 Intake and Output: 12/28/17 12/28/17 06:59 18:59 Intake Total 1260 595 Output Total 910 350 Balance 350 245 - Medications Medications: Current Medications Acetaminophen (Tylenol 650 Mg Supp) 650 mg NC Q6 PRN PRN Reason: Fever >100.4 F Albumin Human (Albumin Human 25% (12.5 Gm/50 Ml)) 25 gm IV MWF PRN PRN Reason: Other Last Admin: 12/27/17 15:45 Dose: 25 gm Albuterol/Ipratropium (Duoneb 3 Mg/0.5 Mg (3 Ml) Ud) 3 ml INH RQ4 [facility] Last Admin: 12/28/17 11:50 Dose: 3 ml Dextrose (Dextrose 50% Inj) 0 ml IV STAT PRN; Protocol PRN Reason: Hypoglycemia Protocol Dextrose (Glutose 15) 15 gm PO ONCE PRN; Protocol PRN Reason: Hypoglycemia Protocol Epoetin Juan F (Procrit) 8,000 unit IV F [facility] Stop: 12/30/17 09:01 Last Admin: 12/27/17 17:40 Dose: 8,000 unit Glucagon (Glucagen Diagnostic Kit) 1 mg IM STAT PRN; Protocol PRN Reason: Hypoglycemia Protocol Heparin Sodium (Porcine) (Heparin) 3,700 units IVP [facility] Last Admin: 12/27/17 17:40 Dose: 3,700 units Dextrose (Dextrose 5% In Water 1000 Ml) 1,000 mls @ 0 mls/hr IV .Q0M PRN; Protocol; Per Protocol PRN Reason: Hypoglycemia Protocol Meropenem 500 mg/ Sodium (Chloride) 100 mls @ 100 mls/hr IVPB Q12 [facility] PRN Reason: Protocol Last Admin: 12/28/17 09:31 Dose: 100 mls/hr Micafungin Sodium 100 mg/ (Sodium Chloride) 100 mls @ 100 mls/hr IV Q24H [facility] PRN Reason: Protocol Last Admin: 12/28/17 09:31 Dose: 100 mls/hr Amikacin Sulfate 750 mg/ (Sodium Chloride) 253 mls @ 250 mls/hr IVPB Q48H [facility] PRN Reason: Protocol Last Admin: 12/26/17 20:45 Dose: 250 mls/hr Daptomycin 600 mg/ Sodium (Chloride) 100 mls @ 100 mls/hr IV Q48H [facility] PRN Reason: Protocol Stop: 12/31/17 19:31 Last Admin: 12/26/17 19:45 Dose: 100 mls/hr Dexmedetomidine HCl 200 mcg/ (Sodium Chloride) 50 mls @ 5.75 mls/hr IV TITR PRN ; Protocol; 0.2 MCG/KG/HR PRN Reason: Agitation Octreotide Acetate 1,250 mcg/ (Sodium Chloride) 252.5 mls @ 10.1 mls/hr IV .Q24H [facility]; 50 MCG/HR PRN Reason: Protocol Last Admin: 12/28/17 11:13 Dose: 10.1 mls/hr Sodium Chloride 35 meq/Magnesium Sulfate 3 meq/Calcium Gluconate 4.5 meq/ Multivitamins/Vitamin C 10 ml/Heparin Sodium (Porcine) 1, 000 units/ Amino Acids 1,030.1663 mls @ 42 mls/hr IV .Q24H [facility] Stop: 12/29/17 17:59 Insulin Human Regular (Novolin R) 0 unit SC Q6 [facility] PRN Reason: Protocol Last Admin: 12/28/17 12:12 Dose: Not Given Pantoprazole Sodium (Protonix Inj) 40 mg IVP Q12H [facility] Last Admin: 12/28/17 09:31 Dose: 40 mg Saccharomyces Boulardii (Florastor) 250 mg PO Q12 [facility] Last Admin: 12/28/17 09:31 Dose: 250 mg - Labs Labs: 12/28/17 06:30 12/28/17 06:30 PT 14.0 SECONDS (9.7-12.2) H 12/24/17 08:54 INR 1.3 12/24/17 08:54 APTT 40 SECONDS (21-34) H 12/18/17 12:39 - Constitutional Appears: Non-toxic, No Acute Distress - Head Exam Head Exam: ATRAUMATIC, NORMOCEPHALIC - Eye Exam Eye Exam: EOMI, Normal appearance - ENT Exam ENT Exam: Mucous Membranes Moist - Respiratory Exam Respiratory Exam: NORMAL BREATHING PATTERN - Cardiovascular Exam Cardiovascular Exam: +S1, +S2 - GI/Abdominal Exam GI & Abdominal Exam: Soft. absent: Distended, Firm, Guarding, Rigid Additional comments: Superior Cullen 620cc/24hr, Inferior Cullen 370cc/24hr, Midline incision well approximated with gayle in place, skin adjacent to umbilical stables dark, inferior to incision area of fluctuant. - Neurological Exam Neurological Exam: Alert, Awake - Psychiatric Exam Psychiatric exam: Normal Affect, Normal Mood - Skin Skin Exam: Dry, Intac Assessment and Plan - Assessment and Plan (Free Text) Assessment: 77F s/p repair of duodenal perforation with jourdan patch POD 11 TMax 101.3 WBC Downtrending 23.7-->20.9 --> 19.7 -->18.1 -->16.2 Bands 8 Plan: - drain management - wean and extubate - Dialysis as needed - IVF - NPO - Octreotide sq Further recs per Dr. Celi [place] PGY2 <Deion Alatorre - Last Filed: 01/05/18 19:40> Objective - Vital Signs/Intake and Output Vital Signs (last 24 hours): Temp Pulse Resp BP Pulse Ox 97.8 F 94 H 28 H 126/52 L 100 01/01/18 17:00 01/01/18 19:34 01/01/18 19:34 01/01/18 19:35 01/01/18 19:34 - Labs Labs: 01/01/18 06:19 01/01/18 06:19 PT 14.0 SECONDS (9.7-12.2) H 12/24/17 08:54 INR 1.3 12/24/17 08:54 APTT 40 SECONDS (21-34) H 12/18/17 12:39 Attending/Attestation - Attestation I have personally seen and examined this patient.: Yes I have fully participated in the care of the patient.: Yes I have reviewed all pertinent clinical information, including history, physical exam and plan: Yes Notes (Text): Pt was seen and examined at bedside Agree with above note and assessment Pt is stable Wean to extubate Drain out put is approx 1.5 liter C/W IV antibiotics c.w current mx Plan d.w ICU team in detail Risk and benefit explained in detail.
--- NOTE | 2017-12-28 16:09 | CP.PCM.PN ---
Subjective - Date & Time of Evaluation Date of Evaluation: 12/28/17 Time of Evaluation: 16:07 - Subjective Subjective: Nephrology Consultation Note: Assessment: critical oliguric Acute Kidney Injury (N17.9) likely hemodynamic injury leading to ATN with Pulmonary congestion, started dialysis 12/20/17 HAGMA with respi compensation, hypocalcemia with Vit D insuff (level 23) carcinoid HTN crisis s/p resection now resolved acute abdomen with perforation s/p repair 12/18/17 (ex lap) hypertension, COPD, breast cancer s/p lumpectomy and duodenal neuroendocrine tumor Plan Plan for HD MWF as ordered. continue to monitor for spontaneous renal recovery No ACEI/ARB due to MANFRED. Maintain hemodynamics stable. Monitor Input/Output, daily weights and renal function with basic metabolic panel anemia: PRBC as needed. ordered epogen 8000 unit 3 times a week will give Vit D and iron/MVI once pt on diet Dose meds/antibiotics for reduced GFR and dialysis status. Avoid fleets enema/ magnesium based laxatives. Avoid nephrotoxins/NSAIDs/ iodinated contrast ( unless needed emergently) S: seen and examined, remains intubated on 40% fio2 Physical Examination: General Appearance: remains intubated, ill appearing Vitals reviewed and noted as below Head; Atraumatic, normocephalic ENT: orally intubated EYES: Pupils are equal, round Sclera is anicteric. Neck; supple no lymphadenopathy, no thyromegaly or bruit Lungs: mechanical bs , reduced at bases Heart: Normal rate. s1s2 normal. No rub or gallop. Extremities: no edema. No varicose veins Neurological: Patient is awake Skin: Warm and dry. Normal turgor. No rash. Palpitation: Normal elasticity for age Abdomen: no abdominal tenderness + sixto drains Psych: unable to assess intubated and sedated MSK: no joint tenderness or swelling. Digits and nails normal, no deformity : kidney or bladder not palpable. has bruce with dark colored urine access: permacath Labs/imaging reviewed. Objective - Vital Signs/Intake and Output Vital Signs (last 24 hours): Temp Pulse Resp BP Pulse Ox 99.0 F 89 19 111/38 L 100 12/28/17 13:22 12/28/17 15:13 12/28/17 15:13 12/28/17 15:13 12/28/17 15:13 Intake and Output: 12/28/17 12/28/17 06:59 18:59 Intake Total 1260 595 Output Total 910 350 Balance 350 245 - Medications Medications: Current Medications Acetaminophen (Tylenol 650 Mg Supp) 650 mg AR Q6 PRN PRN Reason: Fever >100.4 F Albumin Human (Albumin Human 25% (12.5 Gm/50 Ml)) 25 gm IV MWF PRN PRN Reason: Other Last Admin: 12/27/17 15:45 Dose: 25 gm Albuterol/Ipratropium (Duoneb 3 Mg/0.5 Mg (3 Ml) Ud) 3 ml INH RQ4 [facility] Last Admin: 12/28/17 11:50 Dose: 3 ml Dextrose (Dextrose 50% Inj) 0 ml IV STAT PRN; Protocol PRN Reason: Hypoglycemia Protocol Dextrose (Glutose 15) 15 gm PO ONCE PRN; Protocol PRN Reason: Hypoglycemia Protocol Epoetin Juan F (Procrit) 8,000 unit IV [facility] Stop: 12/30/17 09:01 Last Admin: 12/27/17 17:40 Dose: 8,000 unit Glucagon (Glucagen Diagnostic Kit) 1 mg IM STAT PRN; Protocol PRN Reason: Hypoglycemia Protocol Heparin Sodium (Porcine) (Heparin) 3,700 units IVP [facility] Last Admin: 12/27/17 17:40 Dose: 3,700 units Dextrose (Dextrose 5% In Water 1000 Ml) 1,000 mls @ 0 mls/hr IV .Q0M PRN; Protocol; Per Protocol PRN Reason: Hypoglycemia Protocol Meropenem 500 mg/ Sodium (Chloride) 100 mls @ 100 mls/hr IVPB Q12 [facility] PRN Reason: Protocol Last Admin: 12/28/17 09:31 Dose: 100 mls/hr Micafungin Sodium 100 mg/ (Sodium Chloride) 100 mls @ 100 mls/hr IV Q24H [facility] PRN Reason: Protocol Last Admin: 12/28/17 09:31 Dose: 100 mls/hr Amikacin Sulfate 750 mg/ (Sodium Chloride) 253 mls @ 250 mls/hr IVPB Q48H [facility] PRN Reason: Protocol Last Admin: 12/26/17 20:45 Dose: 250 mls/hr Daptomycin 600 mg/ Sodium (Chloride) 100 mls @ 100 mls/hr IV Q48H [facility] PRN Reason: Protocol Stop: 12/31/17 19:31 Last Admin: 12/26/17 19:45 Dose: 100 mls/hr Dexmedetomidine HCl 200 mcg/ (Sodium Chloride) 50 mls @ 5.75 mls/hr IV TITR PRN ; Protocol; 0.2 MCG/KG/HR PRN Reason: Agitation Octreotide Acetate 1,250 mcg/ (Sodium Chloride) 252.5 mls @ 10.1 mls/hr IV .Q24H [facility]; 50 MCG/HR PRN Reason: Protocol Last Admin: 12/28/17 11:13 Dose: 10.1 mls/hr Sodium Chloride 35 meq/Magnesium Sulfate 3 meq/Calcium Gluconate 4.5 meq/ Multivitamins/Vitamin C 10 ml/Heparin Sodium (Porcine) 1, 000 units/ Amino Acids 1,030.1663 mls @ 42 mls/hr IV .Q24H [facility] Stop: 12/29/17 17:59 Insulin Human Regular (Novolin R) 0 unit SC Q6 [facility] PRN Reason: Protocol Last Admin: 12/28/17 12:12 Dose: Not Given Pantoprazole Sodium (Protonix Inj) 40 mg IVP Q12H [facility] Last Admin: 12/28/17 09:31 Dose: 40 mg Saccharomyces Boulardii (Florastor) 250 mg PO Q12 [facility] Last Admin: 12/28/17 09:31 Dose: 250 mg - Labs Labs: 12/28/17 06:30 12/28/17 06:30 PT 14.0 SECONDS (9.7-12.2) H 12/24/17 08:54 INR 1.3 12/24/17 08:54 APTT 40 SECONDS (21-34) H 12/18/17 12:39
[2017-12-28] MEDS ORDERED: TPN#5 IV ONE (18:00)
[2017-12-28] MEDS: DAPTOmycin 600 MG in Sodium Chloride 0.9% 100 ML IV SCH (19:43)
[2017-12-28] MEDS: Amikacin Sulfate 750 MG in Sodium Chloride 0.9% 250 ML IVPB SCH (20:31)
[2017-12-29] MEDS: Albuterol-Ipratrop 3 mg / 0.5 (3 ml) UD INH SCH ×6 (00:33→19:03)
[2017-12-29] MEDS: (Novolin R) Insulin Human Regular 100 units/ml vial SC SCH ×3 (05:36→17:24)
[2017-12-29 05:41] LABS: ABG ALLEN TEST POS; ARTERIAL BLOOD GAS HCO3 22.1 mmol/L (21-28); ARTERIAL BLOOD GAS O2 SAT 97.9 % (95-98); ARTERIAL BLOOD GAS PCO2 28 mm/Hg (35-45); ARTERIAL BLOOD GAS PH 7.45 (7.35-7.45); ARTERIAL BLOOD GAS PO2 73 mm/Hg (80-100); ARTERIAL BLOOD GAS TCO2 20.4 mmol/L (22-28)
[2017-12-29 06:55] LABS: BASO # 0.1 K/uL (0.0-0.2); BASO % 0.6 % (0.0-2.0); EOS # 0.3 K/uL (0.0-0.7); HEMOGLOBIN 9.1 g/dL (11.0-16.0); LYMPH # 1.3 K/uL (1.0-4.3); MEAN CELL VOLUME 83.6 fL (81.0-99.0); MEAN CORPUSCULAR HEMOGLOBIN 27.4 pg (27.0-31.0); MEAN CORPUSCULAR HGB CONC 32.8 g/dL (33.0-37.0); MEAN PLATELET VOLUME 9.6 fL (7.2-11.7); MONO # 1.4 K/uL (0.0-0.8); MONO % 8.8 % (0.0-10.0); NEUT # 13.1 K/uL (1.8-7.0); NEUT % 80.6 % (50.0-75.0); PLATELET COUNT 234 K/uL (130-400); RBC 3.32 Mil/uL (3.80-5.20); RED CELL DISTRIBUTION WIDTH 15.2 % (11.5-14.5); WHITE BLOOD COUNT 16.2 K/uL (4.8-10.8)
[2017-12-29 07:24] LABS: ALB/GLOB RATIO 0.9 (1.0-2.1); CALCIUM 7.5 mg/dl (8.6-10.4)
[2017-12-29 08:09] LABS: ANISOCYTOSIS SLIGHT; BANDS 9 % (0-2); EOSINOPHIL 2 % (0-4); LYMPHOCYTE 10 % (20-40); MONOCYTE 7 % (0-10); NEUTROPHIL 72 % (50-75); PLATELET ESTIMATE NORMAL (NORMAL); TOTAL CELLS COUNTED 100
[2017-12-29 08:10] LABS: HYPOCHROMIC SLIGHT; MICROCYTOSIS SLIGHT; OVALOCYTES SLIGHT; POIKILOCYTOSIS SLIGHT; POLYCHROMIC SLIGHT
[2017-12-29 08:11] LABS: LARGE PLATELETS PRESENT
[2017-12-29 08:12] LABS: TEARDROP CELLS SLIGHT
--- NOTE | 2017-12-29 08:53 | RAD ---
HISTORY: intubated COMPARISON: 12/28/2017. FINDINGS: The endotracheal tube terminates in the mid trachea. The nasogastric tube terminates in the stomach. The right-sided dialysis catheter terminates in the SVC. The right PICC line terminates in the SVC. LUNGS: The lungs are well inflated. There is severe pulmonary venous congestion. Again seen is subsegmental atelectasis in the left upper lobe. PLEURA: No significant pleural effusion identified, no pneumothorax apparent. CARDIOVASCULAR: There is persistent mild cardiomegaly. OSSEOUS STRUCTURES: No significant abnormalities. VISUALIZED UPPER ABDOMEN: Normal. OTHER FINDINGS: None. IMPRESSION: Mild cardiomegaly and severe pulmonary venous congestion. Stable position of support lines and support tubes.
[2017-12-29] MEDS: Meropenem 500 MG in Sodium Chloride 0.9% 100 ML IVPB SCH ×2 (09:28→21:22)
[2017-12-29] MEDS: Micafungin 100 MG in Sodium Chloride 0.9% 100 ML IV SCH (09:28)
[2017-12-29] MEDS: Saccharomyces Boulardi 250 mg Cap PO SCH (09:29)
--- NOTE | 2017-12-29 10:06 | CP.PCM.PN ---
Subjective - Date & Time of Evaluation Date of Evaluation: 12/29/17 Time of Evaluation: 10:05 - Subjective Subjective: seen and examined by me this morning. patient was awake and responsive and follow commands Had J drains (690 plus 470ml from last shift) low urine out put Had fever 101F this morning NPO on TPN Discussed with RN at bedside A little leak noted from her abdominal incision site abscess I and D site site is dry with packing next to J drain site.Its resolving Objective - Vital Signs/Intake and Output Vital Signs (last 24 hours): Temp Pulse Resp BP Pulse Ox 101 F H 96 H 32 H 131/57 L 98 12/29/17 09:29 12/29/17 09:00 12/29/17 09:00 12/29/17 08:42 12/29/17 09:00 Intake and Output: 12/29/17 12/29/17 06:59 18:59 Intake Total 1074 408 Output Total 890 180 Balance 184 228 - Medications Medications: Current Medications Acetaminophen (Tylenol 650 Mg Supp) 650 mg DC Q6 PRN PRN Reason: Fever >100.4 F Last Admin: 12/29/17 09:29 Dose: 650 mg Albumin Human (Albumin Human 25% (12.5 Gm/50 Ml)) 25 gm IV MWF PRN PRN Reason: Other Last Admin: 12/27/17 15:45 Dose: 25 gm Albuterol/Ipratropium (Duoneb 3 Mg/0.5 Mg (3 Ml) Ud) 3 ml INH RQ4 [facility] Last Admin: 12/29/17 07:44 Dose: 3 ml Dextrose (Dextrose 50% Inj) 0 ml IV STAT PRN; Protocol PRN Reason: Hypoglycemia Protocol Dextrose (Glutose 15) 15 gm PO ONCE PRN; Protocol PRN Reason: Hypoglycemia Protocol Epoetin Juan F (Procrit) 8,000 unit IV F [facility] Stop: 12/30/17 09:01 Last Admin: 12/27/17 17:40 Dose: 8,000 unit Glucagon (Glucagen Diagnostic Kit) 1 mg IM STAT PRN; Protocol PRN Reason: Hypoglycemia Protocol Heparin Sodium (Porcine) (Heparin) 3,700 units IVP [facility] Last Admin: 12/27/17 17:40 Dose: 3,700 units Dextrose (Dextrose 5% In Water 1000 Ml) 1,000 mls @ 0 mls/hr IV .Q0M PRN; Protocol; Per Protocol PRN Reason: Hypoglycemia Protocol Meropenem 500 mg/ Sodium (Chloride) 100 mls @ 100 mls/hr IVPB Q12 [facility] PRN Reason: Protocol Last Admin: 12/29/17 09:28 Dose: 100 mls/hr Micafungin Sodium 100 mg/ (Sodium Chloride) 100 mls @ 100 mls/hr IV Q24H [facility] PRN Reason: Protocol Last Admin: 12/29/17 09:28 Dose: 100 mls/hr Amikacin Sulfate 750 mg/ (Sodium Chloride) 253 mls @ 250 mls/hr IVPB Q48H [facility] PRN Reason: Protocol Last Admin: 12/28/17 20:31 Dose: 250 mls/hr Daptomycin 600 mg/ Sodium (Chloride) 100 mls @ 100 mls/hr IV Q48H [facility] PRN Reason: Protocol Stop: 12/31/17 19:31 Last Admin: 12/28/17 19:43 Dose: 100 mls/hr Dexmedetomidine HCl 200 mcg/ (Sodium Chloride) 50 mls @ 5.75 mls/hr IV TITR PRN ; Protocol; 0.2 MCG/KG/HR PRN Reason: Agitation Octreotide Acetate 1,250 mcg/ (Sodium Chloride) 252.5 mls @ 10.1 mls/hr IV .Q24H [facility]; 50 MCG/HR PRN Reason: Protocol Last Admin: 12/29/17 02:21 Dose: 10.1 mls/hr Sodium Chloride 35 meq/Magnesium Sulfate 3 meq/Calcium Gluconate 4.5 meq/ Multivitamins/Vitamin C 10 ml/Heparin Sodium (Porcine) 1, 000 units/ Amino Acids 1,030.1663 mls @ 42 mls/hr IV .Q24H [facility] Stop: 12/29/17 17:59 Last Admin: 12/28/17 17:54 Dose: 42 mls/hr Insulin Human Regular (Novolin R) 0 unit SC Q6 [facility] PRN Reason: Protocol Last Admin: 12/29/17 05:36 Dose: 1 unit Pantoprazole Sodium (Protonix Inj) 40 mg IVP Q12H [facility] Last Admin: 12/29/17 09:28 Dose: 40 mg Saccharomyces Boulardii (Florastor) 250 mg PO Q12 [facility] Last Admin: 12/29/17 09:29 Dose: 250 mg - Labs Labs: 12/29/17 06:41 12/29/17 06:35 PT 14.0 SECONDS (9.7-12.2) H 12/24/17 08:54 INR 1.3 12/24/17 08:54 APTT 40 SECONDS (21-34) H 12/18/17 12:39 - Constitutional Appears: No Acute Distress, Chronically Ill - Head Exam Head Exam: NORMAL INSPECTION - Eye Exam Eye Exam: Normal appearance - ENT Exam ENT Exam: Mucous Membranes Moist - Neck Exam Neck Exam: Full ROM - Respiratory Exam Respiratory Exam: Clear to Ausculation Bilateral, NORMAL BREATHING PATTERN - Cardiovascular Exam Cardiovascular Exam: REGULAR RHYTHM - GI/Abdominal Exam GI & Abdominal Exam: Distended, Soft, Hypoactive Bowel Sounds. 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 she also had HTN crisis which was treated with cardene drip. Patient was admitted to ICU Returned to OR on 12/18/17 due to increasing free air noted on repeat CT scan and underwent s/p ex lap primary repair of duodenal perforation, jourdan patch. Omentectomy. Patient developed acute renal failure /ATN likely due to hydrodynamic injury leading to ATN Right shiley catheter placed - 12/20 - removed 12/24. Dialysis 12/20 and 12/21. Permacath placed 12/25. Dialysis 12/25 and 1 unit PRBC transfused. Patient was having fever spikes with negative cultures CT with oral contrast done on 12/27 showed duodenal perforation/leak. Patient had Endoscopic closure using clips by Dr Flynn on 12/27/2017 Plan: 1.Sepsis/bile peritonitis/duodenal perforation and leak Patient had endoscopic resection of duodenal carcinoid tumor on 12/16/2017 Ct reported intraperitoneal air and patient underwent Exploratory lap and repair of perforation on 12/19. Patient is on antibiotics as per Dr Quinonez.continue Amikacin, Meropenem, Micafungin and daptomycin patient has fever spikes,abdominal wall culture growing tanvi albicans Patient just had CT chest,abdomen and pelvis without contrast yesterday CT scan repeated with oral contrast showed done on 12/27 showed duodenal perforation/leak. Patient had Endoscopic closure using clips by Dr Flynn on 12/27 KORI drains continue to have bilious output with persistent duodenal leak GI recommend to get additional drain by IR and consider placement of J-tube for feeding Discussed with DR Flynn at ICU-No plan for any surgical procedure.Continue octreotide to reduce secretion Discussed with surgeon Dr Alatorre. No plan for further surgery. Keep NPO, on TPN 2. 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 Acute renal failure/Oliguric/ATN started on dialysis on 12/20 Right shiley catheter placed - 12/20 - removed 12/24. Dialysis 12/20 and 12/21. Permacath placed 12/25. Dialysis 12/25 HD on MWF as per nephrology .continue to monitor for spontaneous renal recovery we will follow with nephrology medication dose adjustment with Renal function and avoid nephrotoxic meds. 4. Hypertension Improved 5.Fever-She has fever spikes Culture's urine and blood negative,abdominal abscess positive for fungus wbc remains high continue Amikacin, Meropenem,Micafungin and daptomycin as per Dr Quinonez. 6.Reparatory failure Weaning as per ICU team 7.Anemia- stool OB negative s/p PRBC transfused. Continue epogen 8.DVT prophylaxis is on heparin SQ and GI prophylaxis is on protonix
--- NOTE | 2017-12-29 11:50 | CP.PCM.PN ---
<GeraldOly - Last Filed: 12/29/17 11:47> Subjective - Date & Time of Evaluation Date of Evaluation: 12/29/17 Time of Evaluation: 11:47 - Subjective Subjective: Surgery PT seen and examined. On vent. On CPAP trial. Follow s commands. Denies pain. OGT has 200cc gastric output/12hrs. Drains have 1L bilious output total in 24 hrs. Dressing changed this AM. HD MWF. had fever of 101. Objective - Vital Signs/Intake and Output Vital Signs (last 24 hours): Temp Pulse Resp BP Pulse Ox 101 F H 99 H 29 H 124/50 L 97 12/29/17 09:29 12/29/17 11:12 12/29/17 11:12 12/29/17 11:13 12/29/17 11:12 Intake and Output: 12/29/17 12/29/17 06:59 18:59 Intake Total 1074 460 Output Total 890 180 Balance 184 280 - Medications Medications: Current Medications Acetaminophen (Tylenol 650 Mg Supp) 650 mg PA Q6 PRN PRN Reason: Fever >100.4 F Last Admin: 12/29/17 09:29 Dose: 650 mg Albumin Human (Albumin Human 25% (12.5 Gm/50 Ml)) 25 gm IV MWF PRN PRN Reason: Other Last Admin: 12/27/17 15:45 Dose: 25 gm Albuterol/Ipratropium (Duoneb 3 Mg/0.5 Mg (3 Ml) Ud) 3 ml INH RQ4 [facility] Last Admin: 12/29/17 07:44 Dose: 3 ml Dextrose (Dextrose 50% Inj) 0 ml IV STAT PRN; Protocol PRN Reason: Hypoglycemia Protocol Dextrose (Glutose 15) 15 gm PO ONCE PRN; Protocol PRN Reason: Hypoglycemia Protocol Epoetin Juan F (Procrit) 8,000 unit IV MWF [facility] Stop: 12/30/17 09:01 Last Admin: 12/27/17 17:40 Dose: 8,000 unit Glucagon (Glucagen Diagnostic Kit) 1 mg IM STAT PRN; Protocol PRN Reason: Hypoglycemia Protocol Heparin Sodium (Porcine) (Heparin) 3,700 units IVP [facility] Last Admin: 12/27/17 17:40 Dose: 3,700 units Dextrose (Dextrose 5% In Water 1000 Ml) 1,000 mls @ 0 mls/hr IV .Q0M PRN; Protocol; Per Protocol PRN Reason: Hypoglycemia Protocol Meropenem 500 mg/ Sodium (Chloride) 100 mls @ 100 mls/hr IVPB Q12 [facility] PRN Reason: Protocol Last Admin: 12/29/17 09:28 Dose: 100 mls/hr Micafungin Sodium 100 mg/ (Sodium Chloride) 100 mls @ 100 mls/hr IV Q24H [facility] PRN Reason: Protocol Last Admin: 12/29/17 09:28 Dose: 100 mls/hr Amikacin Sulfate 750 mg/ (Sodium Chloride) 253 mls @ 250 mls/hr IVPB Q48H [facility] PRN Reason: Protocol Last Admin: 12/28/17 20:31 Dose: 250 mls/hr Daptomycin 600 mg/ Sodium (Chloride) 100 mls @ 100 mls/hr IV Q48H [facility] PRN Reason: Protocol Stop: 12/31/17 19:31 Last Admin: 12/28/17 19:43 Dose: 100 mls/hr Dexmedetomidine HCl 200 mcg/ (Sodium Chloride) 50 mls @ 5.75 mls/hr IV TITR PRN ; Protocol; 0.2 MCG/KG/HR PRN Reason: Agitation Octreotide Acetate 1,250 mcg/ (Sodium Chloride) 252.5 mls @ 10.1 mls/hr IV .Q24H [facility]; 50 MCG/HR PRN Reason: Protocol Last Admin: 12/29/17 02:21 Dose: 10.1 mls/hr Sodium Chloride 35 meq/Magnesium Sulfate 3 meq/Calcium Gluconate 4.5 meq/ Multivitamins/Vitamin C 10 ml/Heparin Sodium (Porcine) 1, 000 units/ Amino Acids 1,030.1663 mls @ 42 mls/hr IV .Q24H [facility] Stop: 12/29/17 17:59 Last Admin: 12/28/17 17:54 Dose: 42 mls/hr Sodium Chloride 35 meq/Heparin Sodium (Porcine) 1,000 units/ Amino Acids 1, 009.75 mls @ 42 mls/hr IV .Q24H [facility] Stop: 12/30/17 17:59 Insulin Human Regular (Novolin R) 0 unit SC Q6 [facility] PRN Reason: Protocol Last Admin: 12/29/17 05:36 Dose: 1 unit Pantoprazole Sodium (Protonix Inj) 40 mg IVP Q12H [facility] Last Admin: 12/29/17 09:28 Dose: 40 mg Saccharomyces Boulardii (Florastor) 250 mg PO Q12 [facility] Last Admin: 12/29/17 09:29 Dose: 250 mg - Labs Labs: 12/29/17 06:41 12/29/17 06:35 PT 14.0 SECONDS (9.7-12.2) H 12/24/17 08:54 INR 1.3 12/24/17 08:54 APTT 40 SECONDS (21-34) H 12/18/17 12:39 - Constitutional Appears: Non-toxic, In Acute Distress - Head Exam Head Exam: ATRAUMATIC, NORMAL INSPECTION, NORMOCEPHALIC - Eye Exam Eye Exam: EOMI, Normal appearance, PERRL Pupil Exam: NORMAL ACCOMODATION, PERRL - ENT Exam ENT Exam: Mucous Membranes Moist, Normal Exam - Neck Exam Neck Exam: Full ROM, Normal Inspection. absent: Lymphadenopathy - Respiratory Exam Respiratory Exam: Respiratory Distress Additional comments: On vent 40 % fiO2. - Cardiovascular Exam Cardiovascular Exam: REGULAR RHYTHM, +S1, +S2. absent: Murmur - GI/Abdominal Exam GI & Abdominal Exam: Soft. absent: Distended, Firm, Guarding, Rigid, Tenderness , Hyperactive Bowel Sounds Additional comments: [place]iso[place] has gayle. No drainage. 2 drains on R side : 1L bilious total over 24hrs. dressing saturated w biliuos fuids. Changed. - Extremities Exam Additional comments: off loading boots in place. - Neurological Exam Neurological Exam: Alert, Awake, CN II-XII Intact, Oriented x3 - Psychiatric Exam Psychiatric exam: Normal Affect, Normal Mood - Skin Skin Exam: Erythema, Warm Assessment and Plan - Assessment and Plan (Free Text) Assessment: 77F s/p repair of duodenal perforation with jourdan patch POD 12 POD 2 s/p endoscopic clips Wound cx : tanvi albican TMax 101 WBC Downtrending 23.7-->20.9 --> 19.7 -->18.1 -->16.2 Plan: - drain management - wean and extubate - Dialysis as needed - IVF - NPO -TPN - Octreotide drip - ABX/Antifungal per ID DW Dr. Alatorre <Deion Alatorre - Last Filed: 01/05/18 19:44> Objective - Vital Signs/Intake and Output Vital Signs (last 24 hours): Temp Pulse Resp BP Pulse Ox 97.8 F 94 H 28 H 126/52 L 100 01/01/18 17:00 01/01/18 19:34 01/01/18 19:34 01/01/18 19:35 01/01/18 19:34 - Labs Labs: 01/01/18 06:19 01/01/18 06:19 PT 14.0 SECONDS (9.7-12.2) H 12/24/17 08:54 INR 1.3 12/24/17 08:54 APTT 40 SECONDS (21-34) H 12/18/17 12:39 Attending/Attestation - Attestation I have fully participated in the care of the patient.: Yes I have reviewed all pertinent clinical information, including history, physical exam and plan: Yes Notes (Text): Pt is clinically stable Bile leak is adequately controlled No need for any surgical intervention at present Wean to extubate C/W IV antibiotics c.w current mx Plan d.w ICU attending, Hospitalist in detail Risk and benefit explained in detail.
--- NOTE | 2017-12-29 11:51 | CP.PCM.PN ---
<GilbertJerry - Last Filed: 12/29/17 12:00> Subjective - Date & Time of Evaluation Date of Evaluation: 12/29/17 Time of Evaluation: 09:00 - Subjective Subjective: PGY5 GI Fellow Progress Note Patient seen and examined bedside this morning. The patient's OG was inadvertently removed this morning. She is less responsive at this time, not following basic commands for me in Greek/Tanzanian at bedside. Having some leakage from midline surgical site and increased bilious output to both KORI drains. 12 system ROS cannot be performed given clinical condition. Objective - Vital Signs/Intake and Output Vital Signs (last 24 hours): Temp Pulse Resp BP Pulse Ox 101 F H 99 H 29 H 124/50 L 97 12/29/17 09:29 12/29/17 11:12 12/29/17 11:12 12/29/17 11:13 12/29/17 11:12 Intake and Output: 12/29/17 12/29/17 06:59 18:59 Intake Total 1074 460 Output Total 890 180 Balance 184 280 - Medications Medications: Current Medications Acetaminophen (Tylenol 650 Mg Supp) 650 mg AR Q6 PRN PRN Reason: Fever >100.4 F Last Admin: 12/29/17 09:29 Dose: 650 mg Albumin Human (Albumin Human 25% (12.5 Gm/50 Ml)) 25 gm IV MWF PRN PRN Reason: Other Last Admin: 12/27/17 15:45 Dose: 25 gm Albuterol/Ipratropium (Duoneb 3 Mg/0.5 Mg (3 Ml) Ud) 3 ml INH RQ4 [facility] Last Admin: 12/29/17 07:44 Dose: 3 ml Dextrose (Dextrose 50% Inj) 0 ml IV STAT PRN; Protocol PRN Reason: Hypoglycemia Protocol Dextrose (Glutose 15) 15 gm PO ONCE PRN; Protocol PRN Reason: Hypoglycemia Protocol Epoetin Juan F (Procrit) 8,000 unit IV F [facility] Stop: 12/30/17 09:01 Last Admin: 12/27/17 17:40 Dose: 8,000 unit Glucagon (Glucagen Diagnostic Kit) 1 mg IM STAT PRN; Protocol PRN Reason: Hypoglycemia Protocol Heparin Sodium (Porcine) (Heparin) 3,700 units IVP [facility] Last Admin: 12/27/17 17:40 Dose: 3,700 units Dextrose (Dextrose 5% In Water 1000 Ml) 1,000 mls @ 0 mls/hr IV .Q0M PRN; Protocol; Per Protocol PRN Reason: Hypoglycemia Protocol Meropenem 500 mg/ Sodium (Chloride) 100 mls @ 100 mls/hr IVPB Q12 [facility] PRN Reason: Protocol Last Admin: 12/29/17 09:28 Dose: 100 mls/hr Micafungin Sodium 100 mg/ (Sodium Chloride) 100 mls @ 100 mls/hr IV Q24H [facility] PRN Reason: Protocol Last Admin: 12/29/17 09:28 Dose: 100 mls/hr Amikacin Sulfate 750 mg/ (Sodium Chloride) 253 mls @ 250 mls/hr IVPB Q48H [facility] PRN Reason: Protocol Last Admin: 12/28/17 20:31 Dose: 250 mls/hr Daptomycin 600 mg/ Sodium (Chloride) 100 mls @ 100 mls/hr IV Q48H [facility] PRN Reason: Protocol Stop: 12/31/17 19:31 Last Admin: 12/28/17 19:43 Dose: 100 mls/hr Dexmedetomidine HCl 200 mcg/ (Sodium Chloride) 50 mls @ 5.75 mls/hr IV TITR PRN ; Protocol; 0.2 MCG/KG/HR PRN Reason: Agitation Octreotide Acetate 1,250 mcg/ (Sodium Chloride) 252.5 mls @ 10.1 mls/hr IV .Q24H [facility]; 50 MCG/HR PRN Reason: Protocol Last Admin: 12/29/17 02:21 Dose: 10.1 mls/hr Sodium Chloride 35 meq/Magnesium Sulfate 3 meq/Calcium Gluconate 4.5 meq/ Multivitamins/Vitamin C 10 ml/Heparin Sodium (Porcine) 1, 000 units/ Amino Acids 1,030.1663 mls @ 42 mls/hr IV .Q24H [facility] Stop: 12/29/17 17:59 Last Admin: 12/28/17 17:54 Dose: 42 mls/hr Sodium Chloride 35 meq/Heparin Sodium (Porcine) 1,000 units/ Amino Acids 1, 009.75 mls @ 42 mls/hr IV .Q24H [facility] Stop: 12/30/17 17:59 Insulin Human Regular (Novolin R) 0 unit SC Q6 [facility] PRN Reason: Protocol Last Admin: 12/29/17 05:36 Dose: 1 unit Pantoprazole Sodium (Protonix Inj) 40 mg IVP Q12H [facility] Last Admin: 12/29/17 09:28 Dose: 40 mg Saccharomyces Boulardii (Florastor) 250 mg PO Q12 [facility] Last Admin: 12/29/17 09:29 Dose: 250 mg - Labs Labs: 12/29/17 06:41 12/29/17 06:35 PT 14.0 SECONDS (9.7-12.2) H 12/24/17 08:54 INR 1.3 12/24/17 08:54 APTT 40 SECONDS (21-34) H 12/18/17 12:39 - Constitutional Appears: No Acute Distress, Confused - Eye Exam Eye Exam: PERRL - ENT Exam ENT Exam: Mucous Membranes Dry Additional comments: ETT in place - Respiratory Exam Respiratory Exam: Rhonchi. absent: Clear to Ausculation Bilateral, Rales, Wheezes - Cardiovascular Exam Cardiovascular Exam: RRR, +S1, +S2 - GI/Abdominal Exam GI & Abdominal Exam: Soft, Hypoactive Bowel Sounds. absent: Distended, Firm, Guarding, Rigid, Tenderness, Organomegaly Additional comments: midline surigcal wound with serosanguinous drainage, KORI drains in RUQ with 75cc each of bilious output - Extremities Exam Extremities Exam: Normal Inspection. 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 Pt now s/p EGD/EUS with EMR complicated by bleeding and duodenal perforation. -Duodenal carcinoid s/p EMR c/b duodenal perforation requiring surgical repair -S/P Carlos patch duodenal perforation repair -Sepsis -Acute renal failure requiring HD -Acute respiratory failure requiring mechanical ventilation -Acute delirium Plan: -Pt s/p Carlos patch and endoscopic closure with OTSC with ongoing duodenal leak -KORI drains with increased output in last 24H with additional drainage noted from midline surgical site -May benefit from IR evaluation and additional IR-guided drain placement -Recommend replacement of OGT with follow up plain film to evaluate placement connect to LIS once confirmed -Continue broad spectrum ABX -Wean off ventilator if there is no longer indication for mechanical ventilation discussed with sub acute care nurse -Can consider additional interventions such as surgical revision of site, jejunal feeding tube or placement of covered stent to assist in sealing the leak -HD per nephrology <Andrew Flynn - Last Filed: 12/29/17 18:47> Objective - Vital Signs/Intake and Output Vital Signs (last 24 hours): Temp Pulse Resp BP Pulse Ox 99.6 F 97 H 29 H 131/51 L 100 12/29/17 16:00 12/29/17 18:00 12/29/17 18:00 12/29/17 17:12 12/29/17 18:00 Intake and Output: 12/29/17 12/29/17 06:59 18:59 Intake Total 1074 824 Output Total 890 600 Balance 184 224 - Medications Medications: Current Medications Acetaminophen (Tylenol 650 Mg Supp) 650 mg AR Q6 PRN PRN Reason: Fever >100.4 F Last Admin: 12/29/17 09:29 Dose: 650 mg Albumin Human (Albumin Human 25% (12.5 Gm/50 Ml)) 25 gm IV MWF PRN PRN Reason: Other Last Admin: 12/27/17 15:45 Dose: 25 gm Albuterol/Ipratropium (Duoneb 3 Mg/0.5 Mg (3 Ml) Ud) 3 ml INH RQ4 [facility] Last Admin: 12/29/17 15:49 Dose: 3 ml Dextrose (Dextrose 50% Inj) 0 ml IV STAT PRN; Protocol PRN Reason: Hypoglycemia Protocol Dextrose (Glutose 15) 15 gm PO ONCE PRN; Protocol PRN Reason: Hypoglycemia Protocol Epoetin Juan F (Procrit) 8,000 unit IV [facility] Stop: 12/30/17 09:01 Last Admin: 12/27/17 17:40 Dose: 8,000 unit Glucagon (Glucagen Diagnostic Kit) 1 mg IM STAT PRN; Protocol PRN Reason: Hypoglycemia Protocol Heparin Sodium (Porcine) (Heparin) 3,700 units IVP [facility] Last Admin: 12/27/17 17:40 Dose: 3,700 units Dextrose (Dextrose 5% In Water 1000 Ml) 1,000 mls @ 0 mls/hr IV .Q0M PRN; Protocol; Per Protocol PRN Reason: Hypoglycemia Protocol Meropenem 500 mg/ Sodium (Chloride) 100 mls @ 100 mls/hr IVPB Q12 [facility] PRN Reason: Protocol Last Admin: 12/29/17 09:28 Dose: 100 mls/hr Micafungin Sodium 100 mg/ (Sodium Chloride) 100 mls @ 100 mls/hr IV Q24H [facility] PRN Reason: Protocol Last Admin: 12/29/17 09:28 Dose: 100 mls/hr Amikacin Sulfate 750 mg/ (Sodium Chloride) 253 mls @ 250 mls/hr IVPB Q48H [facility] PRN Reason: Protocol Last Admin: 12/28/17 20:31 Dose: 250 mls/hr Daptomycin 600 mg/ Sodium (Chloride) 100 mls @ 100 mls/hr IV Q48H [facility] PRN Reason: Protocol Stop: 12/31/17 19:31 Last Admin: 12/28/17 19:43 Dose: 100 mls/hr Octreotide Acetate 1,250 mcg/ (Sodium Chloride) 252.5 mls @ 10.1 mls/hr IV .Q24H [facility]; 50 MCG/HR PRN Reason: Protocol Last Admin: 12/29/17 12:16 Dose: Not Given Sodium Chloride 35 meq/Heparin Sodium (Porcine) 1,000 units/ Calcium Gluconate 4.65 meq/ Amino Acids 1,019.75 mls @ 42 mls/hr IV .Q24H [facility] Stop: 12/30/17 17:59 Last Admin: 12/29/17 17:22 Dose: 42 mls/hr Insulin Human Regular (Novolin R) 0 unit SC Q6 [facility] PRN Reason: Protocol Last Admin: 12/29/17 17:24 Dose: 2 unit Pantoprazole Sodium (Protonix Inj) 40 mg IVP Q12H [facility] Last Admin: 12/29/17 09:28 Dose: 40 mg - Labs Labs: 12/29/17 06:41 12/29/17 06:35 PT 14.0 SECONDS (9.7-12.2) H 12/24/17 08:54 INR 1.3 12/24/17 08:54 APTT 40 SECONDS (21-34) H 12/18/17 12:39 Attending/Attestation - Attestation I have personally seen and examined this patient.: Yes I have fully participated in the care of the patient.: Yes I have reviewed all pertinent clinical information, including history, physical exam and plan: Yes Notes (Text): 12/29/17 18:44 77 year old female with h/o duodenal carcinoid s/p EMR c/b perforation s/p carlos patch, hospital course c/b ATN requiring HD, respiratory failure requiring mechanical ventilation, ongoing duodenal leak s/p EGD with OTSC x 2. Drain output suggestive of ongoing leak. Wean from vent and extubate if possible. Continue TPN and broad spectrum abx. Consider IR drain tomorrow. Ongoing KORI output suggestive of ongoing leak. Although no surgery appears imminent, it is possible she will need additional intervention to seal the leak. Endoscopic options including J tube +/- covered esophageal stent placement to seal the leak. Alternative would be surgical intervention. Ok to replace OGT at bedside with post procedure x ray confirmation of positioning.
--- NOTE | 2017-12-29 12:16 | CP.CCUPN ---
CCU Subjective - Physician Review Subjective (Free Text): PAtient's BP stable. FiO2 decreased. Confirmed with both GI and surgery team -- there are no procedures anticipated in the near future requiring intubation. Patient has tolerated CPAP x 2 days, FiO2 decreased. Critical Care Time Spent (in minutes): 35 CCU Objective - Vital Signs / Intake & Output Vital Signs (Last 4 hours): Vital Signs Temp Pulse Resp BP Pulse Ox 12/29/17 12:00 95 H 28 H 98 12/29/17 11:13 97 H 30 H 124/50 L 97 12/29/17 11:12 99 H 29 H 97 12/29/17 11:00 99 H 28 H 97 12/29/17 10:00 101 H 29 H 97 12/29/17 09:42 101 H 28 H 112/54 L 97 12/29/17 09:29 101 F H 12/29/17 09:12 97 H 24 131/53 L 98 12/29/17 09:00 96 H 32 H 98 12/29/17 08:42 98 H 30 H 131/57 L 98 12/29/17 08:12 97 H 20 133/53 L 98 Intake and Output (Last 8hrs): Intake & Output 12/28/17 12/29/17 12/29/17 22:59 06:59 14:59 Intake Total 1440 416 512 Output Total 470 420 380 Balance 970 -4 132 Weight 248 lb 14.43 oz Intake: Intake, IV Amount 740 416 512 Right Distal Port PICC 450 200 Right PICC 80 80 60 right picc 2nd port 210 336 252 Oral 0 0 0 Blood Product 650 Red Blood Cells Cpd As1 325 Lr Unit [id number] Other 50 Red Blood Cells Cpd As1 50 Lr Unit [id number] Output: Drainage 420 390 380 KORI 1 250 260 190 KORI 2 170 130 190 Urine 50 30 0 Urine, Voided 50 30 0 Other: # Bowel Movements 1 1 - Physical Exam Head: Positive for: Atraumatic, Normocephalic, Ecchymosis Extroacular Muscles: Positive for: EOMI Conjunctiva: Positive for: Normal Mouth: Positive for: Other (INTUBATED) Nose (External): Positive for: Other (NGT in place ) Respiratory/Chest: Positive for: Clear to Auscultation. Negative for: Decreased Breath Sounds Cardiovascular: Positive for: Regular Rate and Rhythm Abdomen: Positive for: Tenderness, Normal Bowel Sounds, Other (KORI drains in place, s/p I & D 12/25/17 - dressing clean, dry, intact ). Negative for: Distention Upper Extremity: Positive for: Normal Inspection, NORMAL PULSES, Neurovascularly Intact, Capillary Refill < 2s Lower Extremity: Positive for: Normal Inspection, NORMAL PULSES, Neurovascularly Intact, Capillary Refill < 2 s Neurological: Positive for: GCS=15, CN II-XII Intact Skin: Positive for: Warm, Dry, Normal Color Psychiatric: Positive for: Alert - Medications Active Medications: Active Medications Generic Name Dose Route Start Last Admin Trade Name Freq PRN Reason Stop Dose Admin Acetaminophen 650 mg 12/28/17 10:14 12/29/17 09:29 Tylenol 650 Mg Supp OH 650 mg Q6 PRN Administration Fever >100.4 F Albumin Human 25 gm 12/27/17 14:37 12/27/17 15:45 Albumin Human 25% (12.5 Gm/50 Ml) IV 25 gm MWF PRN Administration Other Albuterol/Ipratropium 3 ml 12/28/17 12:00 12/29/17 07:44 Duoneb 3 Mg/0.5 Mg (3 Ml) Ud INH 3 ml RQ4 FESTUS Administration Dextrose 0 ml 12/16/17 12:08 Dextrose 50% Inj IV STAT PRN Hypoglycemia Protocol Protocol Dextrose 15 gm 12/16/17 12:08 Glutose 15 PO ONCE PRN Hypoglycemia Protocol Protocol Epoetin Juan F 8,000 unit 12/25/17 15:00 12/27/17 17:40 Procrit IV 12/30/17 09:01 8,000 unit MWF FESTUS Administration Glucagon 1 mg 12/16/17 12:08 Glucagen Diagnostic Kit IM STAT PRN Hypoglycemia Protocol Protocol Heparin Sodium (Porcine) 3,700 units 12/25/17 16:46 12/27/17 17:40 Heparin IVP 3,700 units MWF FESTUS Administration Dextrose 1,000 mls @ 0 mls/hr 12/16/17 12:08 Dextrose 5% In Water 1000 Ml IV .Q0M PRN Hypoglycemia Protocol Protocol Per Protocol Meropenem 500 mg/ Sodium 100 mls @ 100 mls/hr 12/18/17 10:00 12/29/17 09:28 Chloride IVPB 100 mls/hr Q12 FESTUS Administration Protocol Micafungin Sodium 100 mg/ 100 mls @ 100 mls/hr 12/21/17 10:00 12/29/17 09:28 Sodium Chloride IV 100 mls/hr Q24H FESTUS Administration Protocol Amikacin Sulfate 750 mg/ 253 mls @ 250 mls/hr 12/26/17 20:30 12/28/17 20:31 Sodium Chloride IVPB 250 mls/hr Q48H FESTUS Administration Protocol Daptomycin 600 mg/ Sodium 100 mls @ 100 mls/hr 12/26/17 19:30 12/28/17 19:43 Chloride IV 12/31/17 19:31 100 mls/hr Q48H FESTUS Administration Protocol Dexmedetomidine HCl 200 mcg/ 50 mls @ 5.75 mls/hr 12/27/17 10:30 Sodium Chloride IV TITR PRN Agitation Protocol 0.2 MCG/KG/HR Octreotide Acetate 1,250 mcg/ 252.5 mls @ 10.1 mls/hr 12/28/17 10:13 02:21 Sodium Chloride IV 10.1 mls/hr .Q24H FESTUS Administration Protocol 50 MCG/HR Sodium Chloride 35 meq/ 1,030.1663 mls @ 42 mls/hr 12/28/17 18:00 12/28/17 17 :54 Magnesium Sulfate 3 meq/ IV 12/29/17 17:59 42 mls/hr Calcium Gluconate 4.5 meq/ .Q24H ONE Administration Multivitamins/Vitamin C 10 ml/ Heparin Sodium (Porcine) 1, 000 units/ Amino Acids Sodium Chloride 35 meq/ 1,009.75 mls @ 42 mls/hr 12/29/17 18:00 Heparin Sodium (Porcine) 1,000 IV 12/30/17 17:59 units/ Amino Acids .Q24H ONE Insulin Human Regular 0 unit 12/19/17 00:00 12/29/17 05:36 Novolin R SC 1 unit Q6 FESTUS Administration Protocol Pantoprazole Sodium 40 mg 12/23/17 22:00 12/29/17 09:28 Protonix Inj IVP 40 mg Q12H FESTUS Administration Saccharomyces Boulardii 250 mg 12/23/17 22:00 12/29/17 09:29 Florastor PO 250 mg Q12 FESTUS Administration - Patient Studies Lab Studies: Microbiology Studies 12/24/17 09:41 Blood Culture - Final Blood-Thru Central Line NO GROWTH AFTER 5 DAYS Gram Stain - Final TEST NOT PERFORMED 12/24/17 14:20 Blood Culture - Preliminary Blood-Thru Central Line NO GROWTH AFTER 4 DAYS 12/25/17 17:05 Gram Stain - Final Abdomen Wound Culture - Final Chio Albicans 12/25/17 12:48 Gram Stain - Final Abdomen Wound Culture - Final Chio Albicans Lab Studies 12/29/17 12/29/17 12/29/17 Range/Units 11:38 06:41 06:35 WBC 16.2 H (4.8-10.8) K/uL RBC 3.32 L (3.80-5.20) Mil/uL Hgb 9.1 L (11.0-16.0) g/dL Hct 27.7 L (34.0-47.0) % MCV 83.6 (81.0-99.0) fL MCH 27.4 (27.0-31.0) pg MCHC 32.8 L (33.0-37.0) g/dL RDW 15.2 H (11.5-14.5) % Plt Count 234 (130-400) K/uL MPV 9.6 (7.2-11.7) fL Neut % (Auto) 80.6 H (50.0-75.0) % Lymph % (Auto) 8.0 L (20.0-40.0) % [place] % (Auto) 8.8 (0.0-10.0) % Eos % (Auto) 2.0 (0.0-4.0) % Baso % (Auto) 0.6 (0.0-2.0) % Neut # (Auto) 13.1 H (1.8-7.0) K/uL Lymph # (Auto) 1.3 (1.0-4.3) K/uL [place] # (Auto) 1.4 H (0.0-0.8) K/uL Eos # (Auto) 0.3 (0.0-0.7) K/uL Baso # (Auto) 0.1 (0.0-0.2) K/uL Neutrophils % (Manual) 72 (50-75) % Band Neutrophils % 9 H (0-2) % Lymphocytes % (Manual) 10 L (20-40) % Monocytes % (Manual) 7 (0-10) % Eosinophils % (Manual) 2 (0-4) % Platelet Estimate Normal (NORMAL) Large Platelets Present Polychromasia Slight Hypochromasia (manual) Slight Poikilocytosis (manual Slight Anisocytosis (manual) Slight Microcytosis (manual) Slight Macrocytosis (manual) Slight Tear Drop Cells Slight Ovalocytes Slight Puncture Site pCO2 (35-45) mm/Hg pO2 (80-100) mm/Hg HCO3 (21-28) mmol/L ABG pH (7.35-7.45) ABG Total CO2 (22-28) mmol/L ABG O2 Saturation (95-98) % ABG Base Excess (-2.0-3.0) mmol/L ABG Hemoglobin (11.7-17.4) g/dL ABG Carboxyhemoglobin (0.5-1.5) % POC ABG HHb (Measured) (0.0-5.0) % ABG Methemoglobin (0.0-3.0) % Richard Test A-a O2 Difference mm/Hg Respiratory Index Hgb O2 Saturation (95.0-98.0) % Vent Mode Mechanical Rate FiO2 % Tidal Volume PEEP Sodium 142 (132-148) mmol/L Potassium 3.7 (3.6-5.2) mmol/L Chloride 105 (98-107) mmol/L Carbon Dioxide 21 L (22-30) mmol/L Anion Gap 20 (10-20) BUN 69 H (7-17) mg/dL Creatinine 5.7 H (0.7-1.2) mg/dL Est GFR ( Amer) 9 Est GFR (Non-Af Amer) 7 POC Glucose (mg/dL) 232 H (65-110) mg/dL Random Glucose 191 H (65-105) mg/dL Calcium 7.5 L (8.6-10.4) mg/dl Phosphorus 5.4 H (2.5-4.5) mg/dL Magnesium 2.2 (1.6-2.3) mg/dL Total Bilirubin 0.9 (0.2-1.3) mg/dL AST 44 H D (14-36) U/L ALT 22 (9-52) U/L Alkaline Phosphatase 94 (38-126) U/L Total Protein 6.4 (6.3-8.3) g/dL Albumin 3.0 L (3.5-5.0) g/dL Globulin 3.4 (2.2-3.9) gm/dL Albumin/Globulin Ratio 0.9 L (1.0-2.1) Triglycerides 140 D (0-149) mg/dL Blood Type Antibody Screen 12/29/17 12/29/17 12/28/17 Range/Units 05:32 05:23 23:28 WBC (4.8-10.8) K/uL RBC (3.80-5.20) Mil/uL Hgb (11.0-16.0) g/dL Hct (34.0-47.0) % MCV (81.0-99.0) fL MCH (27.0-31.0) pg MCHC (33.0-37.0) g/dL RDW (11.5-14.5) % Plt Count (130-400) K/uL MPV (7.2-11.7) fL Neut % (Auto) (50.0-75.0) % Lymph % (Auto) (20.0-40.0) % [place] % (Auto) (0.0-10.0) % Eos % (Auto) (0.0-4.0) % Baso % (Auto) (0.0-2.0) % Neut # (Auto) (1.8-7.0) K/uL Lymph # (Auto) (1.0-4.3) K/uL [place] # (Auto) (0.0-0.8) K/uL Eos # (Auto) (0.0-0.7) K/uL Baso # (Auto) (0.0-0.2) K/uL Neutrophils % (Manual) (50-75) % Band Neutrophils % (0-2) % Lymphocytes % (Manual) (20-40) % Monocytes % (Manual) (0-10) % Eosinophils % (Manual) (0-4) % Platelet Estimate (NORMAL) Large Platelets Polychromasia Hypochromasia (manual) Poikilocytosis (manual Anisocytosis (manual) Microcytosis (manual) Macrocytosis (manual) Tear Drop Cells Ovalocytes Puncture Site Rr pCO2 28 L (35-45) mm/Hg pO2 73 L (80-100) mm/Hg HCO3 22.1 (21-28) mmol/L ABG pH 7.45 (7.35-7.45) ABG Total CO2 20.4 L (22-28) mmol/L ABG O2 Saturation 97.9 (95-98) % ABG Base Excess -3.6 L (-2.0-3.0) mmol/L ABG Hemoglobin 10.0 L (11.7-17.4) g/dL ABG Carboxyhemoglobin 1.8 H (0.5-1.5) % POC ABG HHb (Measured) 2.0 (0.0-5.0) % ABG Methemoglobin 0.9 (0.0-3.0) % Richard Test Pos A-a O2 Difference 177.0 mm/Hg Respiratory Index 2.4 Hgb O2 Saturation 95.3 (95.0-98.0) % Vent Mode Prvc Mechanical Rate 14 FiO2 40.0 % Tidal Volume 450 PEEP 5 Sodium (132-148) mmol/L Potassium (3.6-5.2) mmol/L Chloride (98-107) mmol/L Carbon Dioxide (22-30) mmol/L Anion Gap (10-20) BUN (7-17) mg/dL Creatinine (0.7-1.2) mg/dL Est GFR ( Amer) Est GFR (Non-Af Amer) POC Glucose (mg/dL) 190 H 226 H (65-110) mg/dL Random Glucose (65-105) mg/dL Calcium (8.6-10.4) mg/dl Phosphorus (2.5-4.5) mg/dL Magnesium (1.6-2.3) mg/dL Total Bilirubin (0.2-1.3) mg/dL AST (14-36) U/L ALT (9-52) U/L Alkaline Phosphatase (38-126) U/L Total Protein (6.3-8.3) g/dL Albumin (3.5-5.0) g/dL Globulin (2.2-3.9) gm/dL Albumin/Globulin Ratio (1.0-2.1) Triglycerides (0-149) mg/dL Blood Type Antibody Screen 12/28/17 12/28/17 Range/Units 17:28 12:13 WBC (4.8-10.8) K/uL RBC (3.80-5.20) Mil/uL Hgb (11.0-16.0) g/dL Hct (34.0-47.0) % MCV (81.0-99.0) fL MCH (27.0-31.0) pg MCHC (33.0-37.0) g/dL RDW (11.5-14.5) % Plt Count (130-400) K/uL MPV (7.2-11.7) fL Neut % (Auto) (50.0-75.0) % Lymph % (Auto) (20.0-40.0) % [place] % (Auto) (0.0-10.0) % Eos % (Auto) (0.0-4.0) % Baso % (Auto) (0.0-2.0) % Neut # (Auto) (1.8-7.0) K/uL Lymph # (Auto) (1.0-4.3) K/uL [place] # (Auto) (0.0-0.8) K/uL Eos # (Auto) (0.0-0.7) K/uL Baso # (Auto) (0.0-0.2) K/uL Neutrophils % (Manual) (50-75) % Band Neutrophils % (0-2) % Lymphocytes % (Manual) (20-40) % Monocytes % (Manual) (0-10) % Eosinophils % (Manual) (0-4) % Platelet Estimate (NORMAL) Large Platelets Polychromasia Hypochromasia (manual) Poikilocytosis (manual Anisocytosis (manual) Microcytosis (manual) Macrocytosis (manual) Tear Drop Cells Ovalocytes Puncture Site pCO2 (35-45) mm/Hg pO2 (80-100) mm/Hg HCO3 (21-28) mmol/L ABG pH (7.35-7.45) ABG Total CO2 (22-28) mmol/L ABG O2 Saturation (95-98) % ABG Base Excess (-2.0-3.0) mmol/L ABG Hemoglobin (11.7-17.4) g/dL ABG Carboxyhemoglobin (0.5-1.5) % POC ABG HHb (Measured) (0.0-5.0) % ABG Methemoglobin (0.0-3.0) % Richard Test A-a O2 Difference mm/Hg Respiratory Index Hgb O2 Saturation (95.0-98.0) % Vent Mode Mechanical Rate FiO2 % Tidal Volume PEEP Sodium (132-148) mmol/L Potassium (3.6-5.2) mmol/L Chloride (98-107) mmol/L Carbon Dioxide (22-30) mmol/L Anion Gap (10-20) BUN (7-17) mg/dL Creatinine (0.7-1.2) mg/dL Est GFR ( Amer) Est GFR (Non-Af Amer) POC Glucose (mg/dL) 146 H (65-110) mg/dL Random Glucose (65-105) mg/dL Calcium (8.6-10.4) mg/dl Phosphorus (2.5-4.5) mg/dL Magnesium (1.6-2.3) mg/dL Total Bilirubin (0.2-1.3) mg/dL AST (14-36) U/L ALT (9-52) U/L Alkaline Phosphatase (38-126) U/L Total Protein (6.3-8.3) g/dL Albumin (3.5-5.0) g/dL Globulin (2.2-3.9) gm/dL Albumin/Globulin Ratio (1.0-2.1) Triglycerides (0-149) mg/dL Blood Type O POSITIVE Antibody Screen Negative Laboratory Results - last 24 hr 12/28/17 12/28/17 12/28/17 12:13 17:28 23:28 WBC RBC Hgb Hct MCV MCH MCHC RDW Plt Count MPV Neut % (Auto) Lymph % (Auto) [place] % (Auto) Eos % (Auto) Baso % (Auto) Neut # (Auto) Lymph # (Auto) [place] # (Auto) Eos # (Auto) Baso # (Auto) Neutrophils % (Manual) Band Neutrophils % Lymphocytes % (Manual) Monocytes % (Manual) Eosinophils % (Manual) Platelet Estimate Large Platelets Polychromasia Hypochromasia (manual) Poikilocytosis (manual Anisocytosis (manual) Microcytosis (manual) Macrocytosis (manual) Tear Drop Cells Ovalocytes Puncture Site pCO2 pO2 HCO3 ABG pH ABG Total CO2 ABG O2 Saturation ABG Base Excess ABG Hemoglobin ABG Carboxyhemoglobin POC ABG HHb (Measured) ABG Methemoglobin Richard Test A-a O2 Difference Respiratory Index Hgb O2 Saturation Vent Mode Mechanical Rate FiO2 Tidal Volume PEEP Sodium Potassium Chloride Carbon Dioxide Anion Gap BUN Creatinine Est GFR ( Amer) Est GFR (Non-Af Amer) POC Glucose (mg/dL) 146 H 226 H Random Glucose Calcium Phosphorus Magnesium Total Bilirubin AST ALT Alkaline Phosphatase Total Protein Albumin Globulin Albumin/Globulin Ratio Triglycerides Blood Type O POSITIVE Antibody Screen Negative 12/29/17 12/29/17 12/29/17 05:23 05:32 06:35 WBC RBC Hgb Hct MCV MCH MCHC RDW Plt Count MPV Neut % (Auto) Lymph % (Auto) [place] % (Auto) Eos % (Auto) Baso % (Auto) Neut # (Auto) Lymph # (Auto) [place] # (Auto) Eos # (Auto) Baso # (Auto) Neutrophils % (Manual) Band Neutrophils % Lymphocytes % (Manual) Monocytes % (Manual) Eosinophils % (Manual) Platelet Estimate Large Platelets Polychromasia Hypochromasia (manual) Poikilocytosis (manual Anisocytosis (manual) Microcytosis (manual) Macrocytosis (manual) Tear Drop Cells Ovalocytes Puncture Site Rr pCO2 28 L pO2 73 L HCO3 22.1 ABG pH 7.45 ABG Total CO2 20.4 L ABG O2 Saturation 97.9 ABG Base Excess -3.6 L ABG Hemoglobin 10.0 L ABG Carboxyhemoglobin 1.8 H POC ABG HHb (Measured) 2.0 ABG Methemoglobin 0.9 Richard Test Pos A-a O2 Difference 177.0 Respiratory Index 2.4 Hgb O2 Saturation 95.3 Vent Mode Prvc Mechanical Rate 14 FiO2 40.0 Tidal Volume 450 PEEP 5 Sodium 142 Potassium 3.7 Chloride 105 Carbon Dioxide 21 L Anion Gap 20 BUN 69 H Creatinine 5.7 H Est GFR ( Amer) 9 Est GFR (Non-Af Amer) 7 POC Glucose (mg/dL) 190 H Random Glucose 191 H Calcium 7.5 L Phosphorus 5.4 H Magnesium 2.2 Total Bilirubin 0.9 AST 44 H D ALT 22 Alkaline Phosphatase 94 Total Protein 6.4 Albumin 3.0 L Globulin 3.4 Albumin/Globulin Ratio 0.9 L Triglycerides 140 D Blood Type Antibody Screen 12/29/17 12/29/17 06:41 11:38 WBC 16.2 H RBC 3.32 L Hgb 9.1 L Hct 27.7 L MCV 83.6 MCH 27.4 MCHC 32.8 L RDW 15.2 H Plt Count 234 MPV 9.6 Neut % (Auto) 80.6 H Lymph % (Auto) 8.0 L [place] % (Auto) 8.8 Eos % (Auto) 2.0 Baso % (Auto) 0.6 Neut # (Auto) 13.1 H Lymph # (Auto) 1.3 [place] # (Auto) 1.4 H Eos # (Auto) 0.3 Baso # (Auto) 0.1 Neutrophils % (Manual) 72 Band Neutrophils % 9 H Lymphocytes % (Manual) 10 L Monocytes % (Manual) 7 Eosinophils % (Manual) 2 Platelet Estimate Normal Large Platelets Present Polychromasia Slight Hypochromasia (manual) Slight Poikilocytosis (manual Slight Anisocytosis (manual) Slight Microcytosis (manual) Slight Macrocytosis (manual) Slight Tear Drop Cells Slight Ovalocytes Slight Puncture Site pCO2 pO2 HCO3 ABG pH ABG Total CO2 ABG O2 Saturation ABG Base Excess ABG Hemoglobin ABG Carboxyhemoglobin POC ABG HHb (Measured) ABG Methemoglobin Richard Test A-a O2 Difference Respiratory Index Hgb O2 Saturation Vent Mode Mechanical Rate FiO2 Tidal Volume PEEP Sodium Potassium Chloride Carbon Dioxide Anion Gap BUN Creatinine Est GFR ( Amer) Est GFR (Non-Af Amer) POC Glucose (mg/dL) 232 H Random Glucose Calcium Phosphorus Magnesium Total Bilirubin AST ALT Alkaline Phosphatase Total Protein Albumin Globulin Albumin/Globulin Ratio Triglycerides Blood Type Antibody Screen Fingerstick Blood Sugar Results: 190 Critical Care Progress Note - Nutrition Nutrition: Nutrition Category Date Time Status NPO Diet [DIET] Diets 12/20/17 Dinner Active Assessment/Plan - Assessment and Plan (Free Text) Assessment: Patient seen and examined at bedside. Patient in ICU with prolonged hospital course. 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 During endoscopy, patient had blood loss requiring epi injection. Post procedure, patient was hypertensive requireing ICu monitoring. Patient developed free air requiring surgical intervention. 12/27: CT abd revealed oral contrast outside Gi tract 12/27 GI attempted endoscopic repair of Gi perforation. Drains from both KORI drains reviewed. Surgery team aware of wound and KORI drain. Gi team not anticipating any endoscopy. GI requested that primary team place NG tube without fluroscopy. -Surgical omental patch repair of posterior duodenum with continued leak, continue octreotide as per surgery to decrease GI exocrine secretions -hypoxic respriatory failure;FiO2 decreased tolerating CPAP -ARF: continue negative balance with HD -Anemia: monitor CBC, no sobia Gi bleeding, contiune serial cbc -Sepsis with left shift:continue broad spectrum abx as per ID -Malnutrition: will benfit from IV TPN -BGM q6hrs, ISS aspart -dvt ppx SCD/heparin -PUD ppx protonix -Patient remains off pressors and off sedation -CPAP, weaning trials and extubate cc time 35 minutes - Date & Time Date: 12/29/17 Time: 14:33
--- NOTE | 2017-12-29 13:50 | CP.PCM.PN ---
Subjective - Date & Time of Evaluation Date of Evaluation: 12/29/17 Time of Evaluation: 10:00 - Subjective Subjective: weak lethargic s/p extubation IV rx in progress Objective - Vital Signs/Intake and Output Vital Signs (last 24 hours): Temp Pulse Resp BP Pulse Ox 99.0 F 99 H 28 H 126/58 L 98 12/29/17 12:00 12/29/17 13:00 12/29/17 13:00 12/29/17 12:12 12/29/17 13:00 Intake and Output: 12/29/17 12/29/17 06:59 18:59 Intake Total 1074 564 Output Total 890 380 Balance 184 184 - Medications Medications: Current Medications Acetaminophen (Tylenol 650 Mg Supp) 650 mg WI Q6 PRN PRN Reason: Fever >100.4 F Last Admin: 12/29/17 09:29 Dose: 650 mg Albumin Human (Albumin Human 25% (12.5 Gm/50 Ml)) 25 gm IV MWF PRN PRN Reason: Other Last Admin: 12/27/17 15:45 Dose: 25 gm Albuterol/Ipratropium (Duoneb 3 Mg/0.5 Mg (3 Ml) Ud) 3 ml INH RQ4 [facility] Last Admin: 12/29/17 12:13 Dose: 3 ml Dextrose (Dextrose 50% Inj) 0 ml IV STAT PRN; Protocol PRN Reason: Hypoglycemia Protocol Dextrose (Glutose 15) 15 gm PO ONCE PRN; Protocol PRN Reason: Hypoglycemia Protocol Epoetin Juan F (Procrit) 8,000 unit IV [facility] Stop: 12/30/17 09:01 Last Admin: 12/27/17 17:40 Dose: 8,000 unit Glucagon (Glucagen Diagnostic Kit) 1 mg IM STAT PRN; Protocol PRN Reason: Hypoglycemia Protocol Heparin Sodium (Porcine) (Heparin) 3,700 units IVP [facility] Last Admin: 12/27/17 17:40 Dose: 3,700 units Dextrose (Dextrose 5% In Water 1000 Ml) 1,000 mls @ 0 mls/hr IV .Q0M PRN; Protocol; Per Protocol PRN Reason: Hypoglycemia Protocol Meropenem 500 mg/ Sodium (Chloride) 100 mls @ 100 mls/hr IVPB Q12 FESTUS PRN Reason: Protocol Last Admin: 06/24/18 09:28 Dose: 100 mls/hr Micafungin Sodium 100 mg/ (Sodium Chloride) 100 mls @ 100 mls/hr IV Q24H FESTUS PRN Reason: Protocol Last Admin: 12/29/17 09:28 Dose: 100 mls/hr Amikacin Sulfate 750 mg/ (Sodium Chloride) 253 mls @ 250 mls/hr IVPB Q48H FESTUS PRN Reason: Protocol Last Admin: 12/28/17 20:31 Dose: 250 mls/hr Daptomycin 600 mg/ Sodium (Chloride) 100 mls @ 100 mls/hr IV Q48H FESTUS PRN Reason: Protocol Stop: 12/31/17 19:31 Last Admin: 12/28/17 19:43 Dose: 100 mls/hr Dexmedetomidine HCl 200 mcg/ (Sodium Chloride) 50 mls @ 5.75 mls/hr IV TITR PRN ; Protocol; 0.2 MCG/KG/HR PRN Reason: Agitation Octreotide Acetate 1,250 mcg/ (Sodium Chloride) 252.5 mls @ 10.1 mls/hr IV .Q24H FESTUS; 50 MCG/HR PRN Reason: Protocol Last Admin: 12/29/17 12:16 Dose: Not Given Sodium Chloride 35 meq/Magnesium Sulfate 3 meq/Calcium Gluconate 4.5 meq/ Multivitamins/Vitamin C 10 ml/Heparin Sodium (Porcine) 1, 000 units/ Amino Acids 1,030.1663 mls @ 42 mls/hr IV .Q24H ONE Stop: 12/29/17 17:59 Last Admin: 12/28/17 17:54 Dose: 42 mls/hr Sodium Chloride 35 meq/Heparin Sodium (Porcine) 1,000 units/ Amino Acids 1, 009.75 mls @ 42 mls/hr IV .Q24H ONE Stop: 12/30/17 17:59 Insulin Human Regular (Novolin R) 0 unit SC Q6 FESTUS PRN Reason: Protocol Last Admin: 12/29/17 12:15 Dose: 2 unit Pantoprazole Sodium (Protonix Inj) 40 mg IVP Q12H [facility] Last Admin: 12/29/17 09:28 Dose: 40 mg Saccharomyces Boulardii (Florastor) 250 mg PO Q12 FESTUS Last Admin: 12/29/17 09:29 Dose: 250 mg - Labs Labs: 12/29/17 06:41 12/29/17 06:35 PT 14.0 SECONDS (9.7-12.2) H 12/24/17 08:54 INR 1.3 12/24/17 08:54 APTT 40 SECONDS (21-34) H 12/18/17 12:39 - Constitutional Appears: Chronically Ill - Head Exam Head Exam: NORMOCEPHALIC - Eye Exam Eye Exam: Normal appearance Pupil Exam: PERRL - ENT Exam ENT Exam: Mucous Membranes Dry - Neck Exam Neck Exam: absent: Lymphadenopathy - Respiratory Exam Respiratory Exam: Decreased Breath Sounds, Rhonchi - Cardiovascular Exam Cardiovascular Exam: REGULAR RHYTHM, +S1, +S2 - GI/Abdominal Exam GI & Abdominal Exam: Distended, Tenderness, Diminished Bowel Sounds - Rectal Exam Rectal Exam: Deferred - Exam Exam: NORMAL INSPECTION - Extremities Exam Extremities Exam: Pedal Edema. absent: Joint Swelling - Back Exam Back Exam: absent: CVA tenderness (L), CVA tenderness (R) - Neurological Exam Neurological Exam: Alert - Psychiatric Exam Psychiatric exam: Depressed Assessment and Plan (1) Peritonitis Status: Acute (2) Sepsis Status: Acute (3) Sepsis Status: Acute (4) Renal failure (ARF), acute on chronic Status: Acute (5) Renal failure (ARF), acute on chronic Status: Acute - Assessment and Plan (Free Text) Assessment: cont rx severe sepsis s/p perf viscus, resp failure , bile peritonitis
--- NOTE | 2017-12-29 14:09 | RAD ---
HISTORY: eval NG tube COMPARISON: 12/29/2017 FINDINGS: The NG tube terminates in the stomach. The right-sided dialysis catheter terminates in the SVC. LUNGS: The lungs are well inflated. There is mild pulmonary venous congestion. There is subsegmental atelectasis in the left upper lobe. PLEURA: No significant pleural effusion identified, no pneumothorax apparent. CARDIOVASCULAR: There is mild cardiomegaly P OSSEOUS STRUCTURES: No significant abnormalities. VISUALIZED UPPER ABDOMEN: Normal. OTHER FINDINGS: None. IMPRESSION: NG tube terminates in the stomach. No other interval change.
[2017-12-29 16:08] LABS: ARTERIAL BLOOD GAS HCO3 21.5 mmol/L (21-28); ARTERIAL BLOOD GAS O2 SAT 98.9 % (95-98); ARTERIAL BLOOD GAS PCO2 29 mm/Hg (35-45); ARTERIAL BLOOD GAS PH 7.42 (7.35-7.45); ARTERIAL BLOOD GAS PO2 110 mm/Hg (80-100); ARTERIAL BLOOD GAS TCO2 19.7 mmol/L (22-28)
--- NOTE | 2017-12-29 17:22 | CP.PCM.PN ---
Subjective - Date & Time of Evaluation Date of Evaluation: 12/29/17 Time of Evaluation: 10:00 - Subjective Subjective: Nephrology Consultation Note: Assessment: critical oliguric Acute Kidney Injury (N17.9) likely hemodynamic injury leading to ATN with Pulmonary congestion, started dialysis 12/20/17 HAGMA with respi compensation, hypocalcemia with Vit D insuff (level 23) carcinoid HTN crisis s/p resection now resolved acute abdomen with perforation s/p repair 12/18/17 (ex lap) hypertension, COPD, breast cancer s/p lumpectomy and duodenal neuroendocrine tumor Plan Plan for HD MWF as ordered. continue to monitor for spontaneous renal recovery no sign yet No ACEI/ARB due to MANFRED. Maintain hemodynamics stable. Monitor Input/Output, daily weights and renal function with basic metabolic panel anemia: PRBC as needed. ordered epogen 8000 unit 3 times a week will give Vit D and iron/MVI once pt on diet f/u surg/gi Dose meds/antibiotics for reduced GFR and dialysis status. Avoid fleets enema/ magnesium based laxatives. Avoid nephrotoxins/NSAIDs/ iodinated contrast ( unless needed emergently) S: seen and examined, remains intubated on 30% fio2 Physical Examination: General Appearance: remains intubated, ill appearing Vitals reviewed and noted as below Head; Atraumatic, normocephalic ENT: orally intubated EYES: Pupils are equal, round Sclera is anicteric. Neck; supple no lymphadenopathy, no thyromegaly or bruit Lungs: mechanical bs , reduced at bases Heart: Normal rate. s1s2 normal. No rub or gallop. Extremities: no edema. No varicose veins Neurological: Patient is awake Skin: Warm and dry. Normal turgor. No rash. Palpitation: Normal elasticity for age Abdomen: + 2 sixto drains, no rigidity Psych: unable to assess intubated and sedated MSK: no joint tenderness or swelling. Digits and nails normal, no deformity : kidney or bladder not palpable. has bruce with dark colored urine access: permacath Labs/imaging reviewed. Objective - Vital Signs/Intake and Output Vital Signs (last 24 hours): Temp Pulse Resp BP Pulse Ox 99.6 F 94 H 27 H 131/60 98 12/29/17 16:00 12/29/17 16:00 12/29/17 16:00 12/29/17 15:12 12/29/17 16:00 Intake and Output: 12/29/17 12/29/17 06:59 18:59 Intake Total 1074 720 Output Total 890 380 Balance 184 340 - Medications Medications: Current Medications Acetaminophen (Tylenol 650 Mg Supp) 650 mg [place] Q6 PRN PRN Reason: Fever >100.4 F Last Admin: 12/29/17 09:29 Dose: 650 mg Albumin Human (Albumin Human 25% (12.5 Gm/50 Ml)) 25 gm IV MWF PRN PRN Reason: Other Last Admin: 12/27/17 15:45 Dose: 25 gm Albuterol/Ipratropium (Duoneb 3 Mg/0.5 Mg (3 Ml) Ud) 3 ml INH RQ4 [facility] Last Admin: 12/29/17 15:49 Dose: 3 ml Dextrose (Dextrose 50% Inj) 0 ml IV STAT PRN; Protocol PRN Reason: Hypoglycemia Protocol Dextrose (Glutose 15) 15 gm PO ONCE PRN; Protocol PRN Reason: Hypoglycemia Protocol Epoetin Juan F (Procrit) 8,000 unit IV [facility] Stop: 12/30/17 09:01 Last Admin: 12/27/17 17:40 Dose: 8,000 unit Glucagon (Glucagen Diagnostic Kit) 1 mg IM STAT PRN; Protocol PRN Reason: Hypoglycemia Protocol Heparin Sodium (Porcine) (Heparin) 3,700 units IVP [facility] Last Admin: 12/27/17 17:40 Dose: 3,700 units Dextrose (Dextrose 5% In Water 1000 Ml) 1,000 mls @ 0 mls/hr IV .Q0M PRN; Protocol; Per Protocol PRN Reason: Hypoglycemia Protocol Meropenem 500 mg/ Sodium (Chloride) 100 mls @ 100 mls/hr IVPB Q12 [facility] PRN Reason: Protocol Last Admin: 12/29/17 09:28 Dose: 100 mls/hr Micafungin Sodium 100 mg/ (Sodium Chloride) 100 mls @ 100 mls/hr IV Q24H [facility] PRN Reason: Protocol Last Admin: 12/29/17 09:28 Dose: 100 mls/hr Amikacin Sulfate 750 mg/ (Sodium Chloride) 253 mls @ 250 mls/hr IVPB Q48H [facility] PRN Reason: Protocol Last Admin: 12/28/17 20:31 Dose: 250 mls/hr Daptomycin 600 mg/ Sodium (Chloride) 100 mls @ 100 mls/hr IV Q48H [facility] PRN Reason: Protocol Stop: 12/31/17 19:31 Last Admin: 12/28/17 19:43 Dose: 100 mls/hr Octreotide Acetate 1,250 mcg/ (Sodium Chloride) 252.5 mls @ 10.1 mls/hr IV .Q24H [facility]; 50 MCG/HR PRN Reason: Protocol Last Admin: 12/29/17 12:16 Dose: Not Given Sodium Chloride 35 meq/Magnesium Sulfate 3 meq/Calcium Gluconate 4.5 meq/ Multivitamins/Vitamin C 10 ml/Heparin Sodium (Porcine) 1, 000 units/ Amino Acids 1,030.1663 mls @ 42 mls/hr IV .Q24H [facility] Stop: 12/29/17 17:59 Last Admin: 12/28/17 17:54 Dose: 42 mls/hr Sodium Chloride 35 meq/Heparin Sodium (Porcine) 1,000 units/ Calcium Gluconate 4.65 meq/ Amino Acids 1,019.75 mls @ 42 mls/hr IV .Q24H [facility] Stop: 12/30/17 17:59 Insulin Human Regular (Novolin R) 0 unit SC Q6 [facility] PRN Reason: Protocol Last Admin: 12/29/17 12:15 Dose: 2 unit Pantoprazole Sodium (Protonix Inj) 40 mg IVP Q12H [facility] Last Admin: 12/29/17 09:28 Dose: 40 mg - Labs Labs: 12/29/17 06:41 12/29/17 06:35 PT 14.0 SECONDS (9.7-12.2) H 12/24/17 08:54 INR 1.3 12/24/17 08:54 APTT 40 SECONDS (21-34) H 12/18/17 12:39
[2017-12-29] MEDS ORDERED: TPN#6 IV ONE (18:00)
[2017-12-30] MEDS ORDERED: HYDROmorphone 0.5 mg/0.5 ml ISec IVP STA (00:05)
[2017-12-30] MEDS: (Novolin R) Insulin Human Regular 100 units/ml vial SC SCH ×5 (00:13→23:33)
[2017-12-30] MEDS: Albuterol-Ipratrop 3 mg / 0.5 (3 ml) UD INH SCH ×6 (00:30→19:22)
[2017-12-30 06:02] LABS: ABG ALLEN TEST POS; ARTERIAL BLOOD GAS HCO3 19.8 mmol/L (21-28); ARTERIAL BLOOD GAS HEMOGLOBIN 9.4 g/dL (11.7-17.4); ARTERIAL BLOOD GAS O2 SAT 97.6 % (95-98); ARTERIAL BLOOD GAS PCO2 31 mm/Hg (35-45); ARTERIAL BLOOD GAS PH 7.37 (7.35-7.45); ARTERIAL BLOOD GAS PO2 75 mm/Hg (80-100); ARTERIAL BLOOD GAS TCO2 18.9 mmol/L (22-28)
[2017-12-30 06:40] LABS: BASO # 0.2 K/uL (0.0-0.2); BASO % 1.2 % (0.0-2.0); EOS # 0.3 K/uL (0.0-0.7); EOS % 2.3 % (0.0-4.0); HEMOGLOBIN 9.1 g/dL (11.0-16.0); LYMPH # 1.7 K/uL (1.0-4.3); LYMPH % 11.4 % (20.0-40.0); MEAN CELL VOLUME 84.5 fL (81.0-99.0); MEAN CORPUSCULAR HGB CONC 33.1 g/dL (33.0-37.0); MEAN PLATELET VOLUME 9.7 fL (7.2-11.7); MONO # 1.4 K/uL (0.0-0.8); MONO % 9.8 % (0.0-10.0); NEUT % 75.3 % (50.0-75.0); RBC 3.25 Mil/uL (3.80-5.20); RED CELL DISTRIBUTION WIDTH 14.8 % (11.5-14.5); WHITE BLOOD COUNT 14.7 K/uL (4.8-10.8)
[2017-12-30 07:06] LABS: ALB/GLOB RATIO 0.9 (1.0-2.1); ALBUMIN 3.1 g/dL (3.5-5.0); CALCIUM 7.8 mg/dl (8.6-10.4)
--- NOTE | 2017-12-30 07:21 | CP.PCM.PN ---
<Aris,Benita - Last Filed: 12/30/17 10:52> Subjective - Date & Time of Evaluation Date of Evaluation: 12/30/17 Time of Evaluation: 07:00 - Subjective Subjective: GI Fellow PGY4 Progress Note Pt seen and evaluated at bedside, pt extubated yesterday. Pt hemodynamically stable, with no pressor support. Pt is s/p permacath RIJ, tolerating HD. Pt with an abscess around drain site that was I&D, SIXTO with bilious output. Ongoing duodenal leak. Pt more alert awake saying she wants to go home. +Fevers ROS:A 12pt ROS was unable to be obtained due to AMS Objective - Vital Signs/Intake and Output Vital Signs (last 24 hours): Temp Pulse Resp BP Pulse Ox 99.1 F 110 H 25 H 172/69 H 98 12/30/17 04:00 12/30/17 06:12 12/30/17 06:12 12/30/17 06:12 12/30/17 06:12 Intake and Output: 12/30/17 12/30/17 06:59 18:59 Intake Total 724 Output Total 882 Balance -158 - Medications Medications: Current Medications Acetaminophen (Tylenol 650 Mg Supp) 650 mg [place] Q6 PRN PRN Reason: Fever >100.4 F Last Admin: 12/29/17 09:29 Dose: 650 mg Albumin Human (Albumin Human 25% (12.5 Gm/50 Ml)) 25 gm IV MWF PRN PRN Reason: Other Last Admin: 12/27/17 15:45 Dose: 25 gm Albuterol/Ipratropium (Duoneb 3 Mg/0.5 Mg (3 Ml) Ud) 3 ml INH RQ4 [facility] Last Admin: 12/30/17 03:39 Dose: 3 ml Dextrose (Dextrose 50% Inj) 0 ml IV STAT PRN; Protocol PRN Reason: Hypoglycemia Protocol Dextrose (Glutose 15) 15 gm PO ONCE PRN; Protocol PRN Reason: Hypoglycemia Protocol Epoetin Juan F (Procrit) 8,000 unit IV MWF [facility] Stop: 12/30/17 09:01 Last Admin: 12/27/17 17:40 Dose: 8,000 unit Glucagon (Glucagen Diagnostic Kit) 1 mg IM STAT PRN; Protocol PRN Reason: Hypoglycemia Protocol Heparin Sodium (Porcine) (Heparin) 3,700 units IVP MWF [facility] Last Admin: 12/27/17 17:40 Dose: 3,700 units Dextrose (Dextrose 5% In Water 1000 Ml) 1,000 mls @ 0 mls/hr IV .Q0M PRN; Protocol; Per Protocol PRN Reason: Hypoglycemia Protocol Meropenem 500 mg/ Sodium (Chloride) 100 mls @ 100 mls/hr IVPB Q12 [facility] PRN Reason: Protocol Last Admin: 12/29/17 21:22 Dose: 100 mls/hr Micafungin Sodium 100 mg/ (Sodium Chloride) 100 mls @ 100 mls/hr IV Q24H [facility] PRN Reason: Protocol Last Admin: 12/29/17 09:28 Dose: 100 mls/hr Octreotide Acetate 1,250 mcg/ (Sodium Chloride) 252.5 mls @ 10.1 mls/hr IV .Q24H [facility]; 50 MCG/HR PRN Reason: Protocol Last Admin: 12/30/17 03:15 Dose: 10.1 mls/hr Sodium Chloride 35 meq/Heparin Sodium (Porcine) 1,000 units/ Calcium Gluconate 4.65 meq/ Amino Acids 1,019.75 mls @ 42 mls/hr IV .Q24H [facility] Stop: 12/30/17 17:59 Last Admin: 12/29/17 17:22 Dose: 42 mls/hr Insulin Human Regular (Novolin R) 0 unit SC Q6 [facility] PRN Reason: Protocol Last Admin: 12/30/17 05:13 Dose: 1 unit Pantoprazole Sodium (Protonix Inj) 40 mg IVP Q12H [facility] Last Admin: 12/29/17 21:21 Dose: 40 mg - Labs Labs: 12/30/17 06:28 12/30/17 06:23 PT 14.0 SECONDS (9.7-12.2) H 12/24/17 08:54 INR 1.3 12/24/17 08:54 APTT 40 SECONDS (21-34) H 12/18/17 12:39 - Constitutional Appears: Toxic, Chronically Ill - Head Exam Head Exam: ATRAUMATIC, NORMAL INSPECTION, NORMOCEPHALIC - Eye Exam Eye Exam: EOMI, Normal appearance, PERRL - ENT Exam ENT Exam: Mucous Membranes Dry Additional comments: ngt - Neck Exam Neck Exam: Full ROM - Respiratory Exam Respiratory Exam: Rhonchi, Respiratory Distress - Cardiovascular Exam Cardiovascular Exam: Tachycardia - GI/Abdominal Exam GI & Abdominal Exam: Soft, Tenderness, Normal Bowel Sounds Additional comments: sixto drain with biliou outpt - Rectal Exam Rectal Exam: Deferred - Extremities Exam Extremities Exam: Pedal Edema - Neurological Exam Neurological Exam: Alert, Awake - Psychiatric Exam Psychiatric exam: Anxious - Skin Skin Exam: Diaphoretic, Intact, Normal Color, Rash, Warm Assessment and Plan - Assessment and Plan (Free Text) Assessment: This is a 77 year old female with past medical history of hypertension, COPD, breast cancer s/p lumpectomy that presented to same day 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 Pt is s/p EGD/EUS with EMR complicated by bleeding and perforation s/p clip placement x 7, epi injection, and bipolar cautery. 1. Duodenal perforation s/p surgical repair 2. 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 ARF, ATN on HD 4. Sepsis 5. VDRF-now extubated 6. Abdominal cellulites, abscess 7. Ongoing duodenal leak s/p EGD with OTSC x 2 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, perforation that was treated with a combination of clipping, electrocautery and epinephrine 12/16/17 - Duodenal perforation with surgical intervention and repair of perforation with jourdan patch 12/18/17 - Ongoing duodenal leak seen on CT scan s/p EGD with OTSC x 2 with partial closure of leak 12/27/17 - Anemia, H/H stable, monitor H/H, no active GI bleeding - Protonix BID - IV abx meropenema and micfungin by ID - Pt clinically hemodynamically stable, no pressor - ARF likely ATN, s/p initiation of HD 12/20/17, monitor renal function - Pt on TPN by ICU team - Abdominal wall abscess/cellulites s/p I&D - VDRF s/p extubation 12/29/17 - Appreciate surgical consult - Will continue to follow pt closely <Thomas Cline - Last Filed: 12/30/17 11:51> Objective - Vital Signs/Intake and Output Vital Signs (last 24 hours): Temp Pulse Resp BP Pulse Ox 99.2 F 127 H 33 H 94/55 L 98 12/30/17 09:20 12/30/17 10:24 12/30/17 10:24 12/30/17 11:35 12/30/17 10:24 Intake and Output: 12/30/17 12/30/17 06:59 18:59 Intake Total 724 252.5 Output Total 882 280 Balance -158 -27.5 - Medications Medications: Current Medications Acetaminophen (Tylenol 650 Mg Supp) 650 mg [place] Q6 PRN PRN Reason: Fever >100.4 F Last Admin: 12/29/17 09:29 Dose: 650 mg Albumin Human (Albumin Human 25% (12.5 Gm/50 Ml)) 25 gm IV MWF PRN PRN Reason: Other Last Admin: 12/30/17 11:22 Dose: 25 gm Albuterol/Ipratropium (Duoneb 3 Mg/0.5 Mg (3 Ml) Ud) 3 ml INH RQ4 [facility] Last Admin: 12/30/17 07:15 Dose: 3 ml Dextrose (Dextrose 50% Inj) 0 ml IV STAT PRN; Protocol PRN Reason: Hypoglycemia Protocol Dextrose (Glutose 15) 15 gm PO ONCE PRN; Protocol PRN Reason: Hypoglycemia Protocol Glucagon (Glucagen Diagnostic Kit) 1 mg IM STAT PRN; Protocol PRN Reason: Hypoglycemia Protocol Heparin Sodium (Porcine) (Heparin) 3,[facility] Last Admin: 12/27/17 17:40 Dose: 3,700 units Dextrose (Dextrose 5% In Water 1000 Ml) 1,000 mls @ 0 mls/hr IV .Q0M PRN; Protocol; Per Protocol PRN Reason: Hypoglycemia Protocol Meropenem 500 mg/ Sodium (Chloride) 100 mls @ 100 mls/hr IVPB Q12 [facility] PRN Reason: Protocol Last Admin: 12/29/17 21:22 Dose: 100 mls/hr Micafungin Sodium 100 mg/ (Sodium Chloride) 100 mls @ 100 mls/hr IV Q24H [facility] PRN Reason: Protocol Last Admin: 12/29/17 09:28 Dose: 100 mls/hr Sodium Chloride 35 meq/Heparin Sodium (Porcine) 1,000 units/ Calcium Gluconate 4.65 meq/ Amino Acids 1,019.75 mls @ 42 mls/hr IV .Q24H [facility] Stop: 12/30/17 17:59 Last Admin: 12/29/17 17:22 Dose: 42 mls/hr Daptomycin 600 mg/ Sodium (Chloride) 100 mls @ 100 mls/hr IV Q48H [facility] PRN Reason: Protocol Stop: 01/04/18 19:31 Amikacin Sulfate 750 mg/ (Dextrose) 253 mls @ 250 mls/hr IVPB Q48H [facility] PRN Reason: Protocol Dexmedetomidine HCl 200 mcg/ (Sodium Chloride) 50 mls @ 5.52 mls/hr IV TITR PRN ; Protocol; 0.2 MCG/KG/HR PRN Reason: Agitation Last Titration: 12/30/17 10:58 Dose: 0.4 mcg/kg/hr, 11.05 mls/hr Sodium Chloride 35 meq/Magnesium Sulfate 3 meq/Calcium Gluconate 4.5 meq/ Heparin Sodium (Porcine) 1,000 units/ Multivitamins/Vitamin C 10 ml/ Amino Acids 1,030.1663 mls @ 42 mls/hr IV .Q24H [facility] Stop: 12/31/17 17:59 Insulin Human Regular (Novolin R) 0 unit SC Q6 [facility] PRN Reason: Protocol Last Admin: 12/30/17 05:13 Dose: 1 unit Octreotide Acetate (Sandostatin) 300 mcg SC TID [facility] Pantoprazole Sodium (Protonix Inj) 40 mg IVP Q12H [facility] Last Admin: 12/29/17 21:21 Dose: 40 mg - Labs Labs: 12/30/17 06:28 12/30/17 06:23 PT 14.0 SECONDS (9.7-12.2) H 12/24/17 08:54 INR 1.3 12/24/17 08:54 APTT 40 SECONDS (21-34) H 12/18/17 12:39 Attending/Attestation - Attestation I have personally seen and examined this patient.: Yes I have fully participated in the care of the patient.: Yes I have reviewed all pertinent clinical information, including history, physical exam and plan: Yes Notes (Text): 12/30/17 11:46 I have seen and examined patient with GI fellow, currently receiving bedside dialysis in critical care unit. s/p extubation yesterday. She continues to have high volume bilious output via SIXTO drain. Fever noted yesterday, today she denies abdominal pain, nausea, vomiting. COPD Obesity Duodenal carcinoid s/p EMR complicated by perforation s/p surgical repair - persistent leak Renal failure, on HD - Continue with antibiotics as per ID - Follow up nephrology recommendations regarding dialysis - Continue with PPI therapy - Given clinical evidence of ongoing leak with high volume bilious drainage, would suggest consideration of surgical intervention - Ideally, would favor enteral feeding with possible J-tube, can be placed during same time of surgery if that option is chosen - Will continue to monitor patient clinical course
[2017-12-30] MEDS ORDERED: DEXTROSE 5% IVPB SCH ×2 (08:00→20:30)
[2017-12-30] MEDS ORDERED: WATER IVPB SCH ×2 (08:00→20:30)
[2017-12-30] MEDS ORDERED: AMIKACIN SULFATE IVPB SCH ×2 (08:00→20:30)
--- NOTE | 2017-12-30 09:42 | RAD ---
Chest x-ray single frontal view History: Intubated. Comparison: 12/29/2017 Findings: Lines and tubes stable position. Mild to moderate venous congestion. Linear consolidative opacification in the left upper lung zone. Consolidative opacification at left lower lung zone. Enlarged ectatic aorta. Degenerative changes in the spine. Right hilar prominence. Degenerative changes in the spine and shoulders. Impression: Lines and tubes stable position. Mild to moderate venous congestion. Linear consolidative opacification in the left upper lung zone. Consolidative opacification at left lower lung zone. Enlarged ectatic aorta. Degenerative changes in the spine. Right hilar prominence. Degenerative changes in the spine and shoulders.
[2017-12-30] MEDS: Dexmedetomidine Hydrochloride 200 MCG in Sodium Chloride 0.9% 48 ML IV PRN ×3 (10:30→23:00)
[2017-12-30] MEDS: Albumin Human 25% (12.5 gm/50 ml) IV PRN (11:22)
--- NOTE | 2017-12-30 11:40 | CP.CCUPN ---
<Estefania Veliz - Last Filed: 12/30/17 11:22> CCU Subjective - Physician Review Subjective (Free Text): Patient seen and examined at bedside. Patient extubated 12/29/17. Currently on nonbreather. Patient is able to follow commands, unable to speak in cohesive phrases. CCU Objective - Vital Signs / Intake & Output Vital Signs (Last 4 hours): Vital Signs Temp Pulse Pulse Resp BP BP BP 12/30/17 11:05 84/48 L 12/30/17 10:50 133/81 12/30/17 10:35 115/85 12/30/17 10:24 127 H 33 H 120/79 12/30/17 10:20 120/79 12/30/17 10:13 132 H 31 H 110/69 12/30/17 10:05 110/69 12/30/17 10:00 130 H 34 H 12/30/17 09:55 128 H 31 H 151/69 H 12/30/17 09:50 151/69 H 12/30/17 09:40 124 H 30 H 141/76 12/30/17 09:35 141/76 12/30/17 09:25 116 H 30 H 170/81 H 12/30/17 09:20 99.2 F 118 H 30 H 170/81 H 12/30/17 09:15 99.2 F 118 H 30 H 161/78 H 12/30/17 09:12 118 H 28 H 180/78 H 12/30/17 09:00 119 H 30 H 12/30/17 08:12 115 H 28 H 161/78 H 12/30/17 08:00 99.2 F 115 H 31 H Pulse Ox 12/30/17 11:05 12/30/17 10:50 12/30/17 10:35 12/30/17 10:24 98 12/30/17 10:20 12/30/17 10:13 96 12/30/17 10:05 12/30/17 10:00 97 12/30/17 09:55 97 12/30/17 09:50 12/30/17 09:40 98 12/30/17 09:35 12/30/17 09:25 97 12/30/17 09:20 98 12/30/17 09:15 06/25/18 09:12 96 12/30/17 09:00 96 12/30/17 08:12 97 12/30/17 08:00 96 Intake and Output (Last 8hrs): Intake & Output 12/29/17 12/30/17 12/30/17 22:59 06:59 14:59 Intake Total 516 416 252.5 Output Total 421 681 280 Balance 95 -265 -27.5 Weight 243 lb 9.773 oz Intake: IV 7 Intake, IV Amount 516 416 245.5 Right Distal Port PICC 100 Right PICC 80 80 35.5 right picc 2nd port 336 336 210 Oral 0 0 Output: Drainage 420 680 280 KORI 1 200 380 170 KORI 2 220 300 110 Urine 0 Urine, Voided 0 Urine/Stool Mix 1 1 Other: # Voids Urine, Voided 0 0 # Bowel Movements 0 0 - Physical Exam Head: Positive for: Atraumatic, Normocephalic, Ecchymosis Extroacular Muscles: Positive for: EOMI Conjunctiva: Positive for: Normal Nose (External): Positive for: Other (NGT in place ) Respiratory/Chest: Positive for: Clear to Auscultation. Negative for: Decreased Breath Sounds Cardiovascular: Positive for: Regular Rate and Rhythm Abdomen: Positive for: Tenderness, Normal Bowel Sounds, Other (KORI drains in place, s/p I & D 12/25/17 - dressing clean, dry, intact ). Negative for: Distention Upper Extremity: Positive for: Normal Inspection, NORMAL PULSES, Neurovascularly Intact, Capillary Refill < 2s Lower Extremity: Positive for: Normal Inspection, NORMAL PULSES, Neurovascularly Intact, Capillary Refill < 2 s Neurological: Positive for: GCS=15, CN II-XII Intact Skin: Positive for: Warm, Dry, Normal Color Psychiatric: Positive for: Alert - Medications Active Medications: Active Medications Generic Name Dose Route Start Last Admin Trade Name Freq PRN Reason Stop Dose Admin Acetaminophen 650 mg 12/28/17 10:14 12/29/17 09:29 Tylenol 650 Mg Supp OR 650 mg Q6 PRN Administration Fever >100.4 F Albumin Human 25 gm 12/27/17 14:37 12/27/17 15:45 Albumin Human 25% (12.5 Gm/50 Ml) IV 25 gm MWF PRN Administration Other Albuterol/Ipratropium 3 ml 12/28/17 12:00 12/30/17 07:15 Duoneb 3 Mg/0.5 Mg (3 Ml) Ud INH 3 ml RQ4 FESTUS Administration Dextrose 0 ml 12/16/17 12:08 Dextrose 50% Inj IV STAT PRN Hypoglycemia Protocol Protocol Dextrose 15 gm 12/16/17 12:08 Glutose 15 PO ONCE PRN Hypoglycemia Protocol Protocol Glucagon 1 mg 12/16/17 12:08 Glucagen Diagnostic Kit IM STAT PRN Hypoglycemia Protocol Protocol Heparin Sodium (Porcine) 3,700 units 12/25/17 16:46 12/27/17 17:40 Heparin IVP 3,700 units MWF FESTUS Administration Dextrose 1,000 mls @ 0 mls/hr 12/16/17 12:08 Dextrose 5% In Water 1000 Ml IV .Q0M PRN Hypoglycemia Protocol Protocol Per Protocol Meropenem 500 mg/ Sodium 100 mls @ 100 mls/hr 12/18/17 10:00 12/29/17 21:22 Chloride IVPB 100 mls/hr Q12 FESTUS Administration Protocol Micafungin Sodium 100 mg/ 100 mls @ 100 mls/hr 12/21/17 10:00 12/29/17 09:28 Sodium Chloride IV 100 mls/hr Q24H FESTUS Administration Protocol Sodium Chloride 35 meq/ 1,019.75 mls @ 42 mls/hr 12/29/17 18:00 12/29/17 17: 22 Heparin Sodium (Porcine) 1,000 IV 12/30/17 17:59 42 mls/hr units/ Calcium Gluconate 4.65 .Q24H ONE Administration meq/ Amino Acids Daptomycin 600 mg/ Sodium 100 mls @ 100 mls/hr 12/30/17 19:30 Chloride IV 01/04/18 19:31 Q48H FESTUS Protocol Amikacin Sulfate 750 mg/ 253 mls @ 250 mls/hr 12/30/17 20:30 Dextrose IVPB Q48H FESTUS Protocol Dexmedetomidine HCl 200 mcg/ 50 mls @ 5.52 mls/hr 12/30/17 10:03 12/30/17 10: 58 Sodium Chloride IV 0.4 mcg/kg/hr TITR PRN 11.05 mls/hr Agitation Titration Protocol 0.2 MCG/KG/HR Sodium Chloride 35 meq/ 1,030.1663 mls @ 42 mls/hr 12/30/17 18:00 Magnesium Sulfate 3 meq/ IV 06/26/18 17:59 Calcium Gluconate 4.5 meq/ .Q24H ONE Heparin Sodium (Porcine) 1,000 units/ Multivitamins/Vitamin C 10 ml/ Amino Acids Insulin Human Regular 0 unit 12/19/17 00:00 12/30/17 05:13 Novolin R SC 1 unit Q6 FESTUS Administration Protocol Octreotide Acetate 300 mcg 12/30/17 14:00 Sandostatin SC TID FESTUS Pantoprazole Sodium 40 mg 12/23/17 22:00 12/29/17 21:21 Protonix Inj IVP 40 mg Q12H FESTUS Administration - Patient Studies Lab Studies: Microbiology Studies 12/24/17 14:20 Blood Culture - Final Blood-Thru Central Line NO GROWTH AFTER 5 DAYS Gram Stain - Final TEST NOT PERFORMED 12/24/17 09:41 Blood Culture - Final Blood-Thru Central Line NO GROWTH AFTER 5 DAYS Gram Stain - Final TEST NOT PERFORMED Lab Studies 12/30/17 12/30/17 12/30/17 Range/Units 06:28 06:23 05:20 WBC 14.7 H (4.8-10.8) K/uL RBC 3.25 L (3.80-5.20) Mil/uL Hgb 9.1 L (11.0-16.0) g/dL Hct 27.5 L (34.0-47.0) % MCV 84.5 (81.0-99.0) fL MCH 28.0 (27.0-31.0) pg MCHC 33.1 (33.0-37.0) g/dL RDW 14.8 H (11.5-14.5) % Plt Count 239 (130-400) K/uL MPV 9.7 (7.2-11.7) fL Neut % (Auto) 75.3 H (50.0-75.0) % Lymph % (Auto) 11.4 L (20.0-40.0) % [place] % (Auto) 9.8 (0.0-10.0) % Eos % (Auto) 2.3 (0.0-4.0) % Baso % (Auto) 1.2 (0.0-2.0) % Neut # (Auto) 11.0 H (1.8-7.0) K/uL Lymph # (Auto) 1.7 (1.0-4.3) K/uL [place] # (Auto) 1.4 H (0.0-0.8) K/uL Eos # (Auto) 0.3 (0.0-0.7) K/uL Baso # (Auto) 0.2 (0.0-0.2) K/uL Puncture Site R rad pCO2 31 L (35-45) mm/Hg pO2 75 L (80-100) mm/Hg HCO3 19.8 L (21-28) mmol/L ABG pH 7.37 (7.35-7.45) ABG Total CO2 18.9 L (22-28) mmol/L ABG O2 Saturation 97.6 (95-98) % ABG Base Excess -6.5 L (-2.0-3.0) mmol/L ABG Hemoglobin 9.4 L (11.7-17.4) g/dL ABG Carboxyhemoglobin 2.0 H (0.5-1.5) % POC ABG HHb (Measured) 2.3 (0.0-5.0) % ABG Methemoglobin 1.1 (0.0-3.0) % Richard Test Pos ABG Potassium (3.6-5.2) mmol/L A-a O2 Difference 171.0 mm/Hg Respiratory Index 2.3 Hgb O2 Saturation 94.7 L (95.0-98.0) % Sodium 143 (132-148) mmol/l Chloride 107 (98-107) mmol/L Glucose (65-105) mg/dl Lactate (0.7-2.1) mmol/L FiO2 40.0 % Potassium 3.9 (3.6-5.2) mmol/L Carbon Dioxide 18 L (22-30) mmol/L Anion Gap 22 H (10-20) BUN 85 H (7-17) mg/dL Creatinine 6.4 H (0.7-1.2) mg/dL Est GFR ( Amer) 8 Est GFR (Non-Af Amer) 6 POC Glucose (mg/dL) (65-110) mg/dL Random Glucose 159 H (65-105) mg/dL Calcium 7.8 L (8.6-10.4) mg/dl Phosphorus 7.1 H (2.5-4.5) mg/dL Magnesium 2.2 (1.6-2.3) mg/dL Total Bilirubin 0.9 (0.2-1.3) mg/dL AST 55 H D (14-36) U/L ALT 24 (9-52) U/L Alkaline Phosphatase 103 (38-126) U/L Total Protein 6.6 (6.3-8.3) g/dL Albumin 3.1 L (3.5-5.0) g/dL Globulin 3.6 (2.2-3.9) gm/dL Albumin/Globulin Ratio 0.9 L (1.0-2.1) Arterial Blood Potassium (3.6-5.2) mmol/L 12/30/17 12/29/17 12/29/17 Range/Units 05:04 23:50 17:23 WBC (4.8-10.8) K/uL RBC (3.80-5.20) Mil/uL Hgb (11.0-16.0) g/dL Hct (34.0-47.0) % MCV (81.0-99.0) fL MCH (27.0-31.0) pg MCHC (33.0-37.0) g/dL RDW (11.5-14.5) % Plt Count (130-400) K/uL MPV (7.2-11.7) fL Neut % (Auto) (50.0-75.0) % Lymph % (Auto) (20.0-40.0) % [place] % (Auto) (0.0-10.0) % Eos % (Auto) (0.0-4.0) % Baso % (Auto) (0.0-2.0) % Neut # (Auto) (1.8-7.0) K/uL Lymph # (Auto) (1.0-4.3) K/uL [place] # (Auto) (0.0-0.8) K/uL Eos # (Auto) (0.0-0.7) K/uL Baso # (Auto) (0.0-0.2) K/uL Puncture Site pCO2 (35-45) mm/Hg pO2 (80-100) mm/Hg HCO3 (21-28) mmol/L ABG pH (7.35-7.45) ABG Total CO2 (22-28) mmol/L ABG O2 Saturation (95-98) % ABG Base Excess (-2.0-3.0) mmol/L ABG Hemoglobin (11.7-17.4) g/dL ABG Carboxyhemoglobin (0.5-1.5) % POC ABG HHb (Measured) (0.0-5.0) % ABG Methemoglobin (0.0-3.0) % Richard Test ABG Potassium (3.6-5.2) mmol/L A-a O2 Difference mm/Hg Respiratory Index Hgb O2 Saturation (95.0-98.0) % Sodium (132-148) mmol/l Chloride (98-107) mmol/L Glucose (65-105) mg/dl Lactate (0.7-2.1) mmol/L FiO2 % Potassium (3.6-5.2) mmol/L Carbon Dioxide (22-30) mmol/L Anion Gap (10-20) BUN (7-17) mg/dL Creatinine (0.7-1.2) mg/dL Est GFR ( Amer) Est GFR (Non-Af Amer) POC Glucose (mg/dL) 162 H 242 H 231 H (65-110) mg/dL Random Glucose (65-105) mg/dL Calcium (8.6-10.4) mg/dl Phosphorus (2.5-4.5) mg/dL Magnesium (1.6-2.3) mg/dL Total Bilirubin (0.2-1.3) mg/dL AST (14-36) U/L ALT (9-52) U/L Alkaline Phosphatase (38-126) U/L Total Protein (6.3-8.3) g/dL Albumin (3.5-5.0) g/dL Globulin (2.2-3.9) gm/dL Albumin/Globulin Ratio (1.0-2.1) Arterial Blood Potassium (3.6-5.2) mmol/L 12/29/17 12/29/17 Range/Units 16:01 11:38 WBC (4.8-10.8) K/uL RBC (3.80-5.20) Mil/uL Hgb (11.0-16.0) g/dL Hct (34.0-47.0) % MCV (81.0-99.0) fL MCH (27.0-31.0) pg MCHC (33.0-37.0) g/dL RDW (11.5-14.5) % Plt Count (130-400) K/uL MPV (7.2-11.7) fL Neut % (Auto) (50.0-75.0) % Lymph % (Auto) (20.0-40.0) % [place] % (Auto) (0.0-10.0) % Eos % (Auto) (0.0-4.0) % Baso % (Auto) (0.0-2.0) % Neut # (Auto) (1.8-7.0) K/uL Lymph # (Auto) (1.0-4.3) K/uL [place] # (Auto) (0.0-0.8) K/uL Eos # (Auto) (0.0-0.7) K/uL Baso # (Auto) (0.0-0.2) K/uL Puncture Site Rba pCO2 29 L (35-45) mm/Hg pO2 110 H (80-100) mm/Hg HCO3 21.5 (21-28) mmol/L ABG pH 7.42 (7.35-7.45) ABG Total CO2 19.7 L (22-28) mmol/L ABG O2 Saturation 98.9 H (95-98) % ABG Base Excess -4.4 L (-2.0-3.0) mmol/L ABG Hemoglobin (11.7-17.4) g/dL ABG Carboxyhemoglobin (0.5-1.5) % POC ABG HHb (Measured) (0.0-5.0) % ABG Methemoglobin (0.0-3.0) % Richard Test Na ABG Potassium 3.6 (3.6-5.2) mmol/L A-a O2 Difference 139.0 mm/Hg Respiratory Index 1.3 Hgb O2 Saturation (95.0-98.0) % Sodium 139.0 (132-148) mmol/l Chloride 108.0 H (98-107) mmol/L Glucose 217 H (65-105) mg/dl Lactate 1.5 (0.7-2.1) mmol/L FiO2 40.0 % Potassium (3.6-5.2) mmol/L Carbon Dioxide (22-30) mmol/L Anion Gap (10-20) BUN (7-17) mg/dL Creatinine (0.7-1.2) mg/dL Est GFR ( Amer) Est GFR (Non-Af Amer) POC Glucose (mg/dL) 232 H (65-110) mg/dL Random Glucose (65-105) mg/dL Calcium (8.6-10.4) mg/dl Phosphorus (2.5-4.5) mg/dL Magnesium (1.6-2.3) mg/dL Total Bilirubin (0.2-1.3) mg/dL AST (14-36) U/L ALT (9-52) U/L Alkaline Phosphatase (38-126) U/L Total Protein (6.3-8.3) g/dL Albumin (3.5-5.0) g/dL Globulin (2.2-3.9) gm/dL Albumin/Globulin Ratio (1.0-2.1) Arterial Blood Potassium 3.6 (3.6-5.2) mmol/L Laboratory Results - last 24 hr 12/29/17 12/29/17 12/29/17 11:38 16:01 17:23 WBC RBC Hgb Hct MCV MCH MCHC RDW Plt Count MPV Neut % (Auto) Lymph % (Auto) [place] % (Auto) Eos % (Auto) Baso % (Auto) Neut # (Auto) Lymph # (Auto) [place] # (Auto) Eos # (Auto) Baso # (Auto) Puncture Site Rba pCO2 29 L pO2 110 H HCO3 21.5 ABG pH 7.42 ABG Total CO2 19.7 L ABG O2 Saturation 98.9 H ABG Base Excess -4.4 L ABG Hemoglobin ABG Carboxyhemoglobin POC ABG HHb (Measured) ABG Methemoglobin Richard Test Na ABG Potassium 3.6 A-a O2 Difference 139.0 Respiratory Index 1.3 Hgb O2 Saturation Sodium 139.0 Chloride 108.0 H Glucose 217 H Lactate 1.5 FiO2 40.0 Potassium Carbon Dioxide Anion Gap BUN Creatinine Est GFR ( Amer) Est GFR (Non-Af Amer) POC Glucose (mg/dL) 232 H 231 H Random Glucose Calcium Phosphorus Magnesium Total Bilirubin AST ALT Alkaline Phosphatase Total Protein Albumin Globulin Albumin/Globulin Ratio Arterial Blood Potassium 3.6 12/29/17 12/30/17 12/30/17 23:50 05:04 05:20 WBC RBC Hgb Hct MCV MCH MCHC RDW Plt Count MPV Neut % (Auto) Lymph % (Auto) [place] % (Auto) Eos % (Auto) Baso % (Auto) Neut # (Auto) Lymph # (Auto) [place] # (Auto) Eos # (Auto) Baso # (Auto) Puncture Site R rad pCO2 31 L pO2 75 L HCO3 19.8 L ABG pH 7.37 ABG Total CO2 18.9 L ABG O2 Saturation 97.6 ABG Base Excess -6.5 L ABG Hemoglobin 9.4 L ABG Carboxyhemoglobin 2.0 H POC ABG HHb (Measured) 2.3 ABG Methemoglobin 1.1 Richard Test Pos ABG Potassium A-a O2 Difference 171.0 Respiratory Index 2.3 Hgb O2 Saturation 94.7 L Sodium Chloride Glucose Lactate FiO2 40.0 Potassium Carbon Dioxide Anion Gap BUN Creatinine Est GFR ( Amer) Est GFR (Non-Af Amer) POC Glucose (mg/dL) 242 H 162 H Random Glucose Calcium Phosphorus Magnesium Total Bilirubin AST ALT Alkaline Phosphatase Total Protein Albumin Globulin Albumin/Globulin Ratio Arterial Blood Potassium 12/30/17 12/30/17 06:23 06:28 WBC 14.7 H RBC 3.25 L Hgb 9.1 L Hct 27.5 L MCV 84.5 MCH 28.0 MCHC 33.1 RDW 14.8 H Plt Count 239 MPV 9.7 Neut % (Auto) 75.3 H Lymph % (Auto) 11.4 L [place] % (Auto) 9.8 Eos % (Auto) 2.3 Baso % (Auto) 1.2 Neut # (Auto) 11.0 H Lymph # (Auto) 1.7 [place] # (Auto) 1.4 H Eos # (Auto) 0.3 Baso # (Auto) 0.2 Puncture Site pCO2 pO2 HCO3 ABG pH ABG Total CO2 ABG O2 Saturation ABG Base Excess ABG Hemoglobin ABG Carboxyhemoglobin POC ABG HHb (Measured) ABG Methemoglobin Richard Test ABG Potassium A-a O2 Difference Respiratory Index Hgb O2 Saturation Sodium 143 Chloride 107 Glucose Lactate FiO2 Potassium 3.9 Carbon Dioxide 18 L Anion Gap 22 H BUN 85 H Creatinine 6.4 H Est GFR ( Amer) 8 Est GFR (Non-Af Amer) 6 POC Glucose (mg/dL) Random Glucose 159 H Calcium 7.8 L Phosphorus 7.1 H Magnesium 2.2 Total Bilirubin 0.9 AST 55 H D ALT 24 Alkaline Phosphatase 103 Total Protein 6.6 Albumin 3.1 L Globulin 3.6 Albumin/Globulin Ratio 0.9 L Arterial Blood Potassium Fingerstick Blood Sugar Results: 162 Critical Care Progress Note - Nutrition Nutrition: Nutrition Category Date Time Status NPO Diet [DIET] Diets 12/20/17 Dinner Active Assessment/Plan - Assessment and Plan (Free Text) Assessment: This is a 77yo female with history of hypertension, COPD, breast cancer s/p lumpectomy that presented to same day 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 During the procedure, patient experienced a significant amount of bleeding which was treated with a combination of clipping , electrocautery and epinephrine. Bleeding was significantly reduced however patient was subsequently admitted to ICU for close observation. Patient was admitted to ICU due to SBP 220/140s initially on cardene drip x 1 - 2 hours Returned to OR 12/18/17 due to increasing free air noted on repeat CT scan ; s/p ex lap primary repair of duodenal perforation, jourdan patch. Omentectomy. Picc line placed 12/20/17 Right shiley catheter placed - 12/20 - removed 12/24. Permacath placed 12/25 12/25 bedside I & D of abdominal wall abscess, wound cultures sent - tanvi - patient has been on micafungin 12/21 12/27- Ongoing duodenal leak s/p EGD with OTSC x 2 12/29 - patient was extubated Total 3 units PRBCs transfused throughout admission Plan: Neuro: - Extubated 12/30 on NR Cardio: A: Hypertension - Initially was on Cardene Drip; currently not on any antihypertensives Pulm: - Extubated 12/30 on NR A: COPD - Duonebs Q4 FESTUS GI: A: Duodenal perforation s/p surgical repair 12/18 - No further surgical intervention - [address], actively draining - Started Octreotide SC 12/27/17 - Ongoing duodenal leak s/p EGD with OTSC x 2 - 12/27 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 Alatorre - Previous hemorrhage - stabilized with a combination of clipping, electrocautery and epinephrine - PPI Q12 - Ct chest, abdomen, pelvis 2/2 abdominal pain and guarding on exam: Mild increase in the extent of pneumoperitoneum. Increasing ascites. Extensive gas adjacent to 2nd duodenum and nasim hepatis. Status post cholecystectomy. Nasogastric tube. Fluid in retroperitoneum and gas in perinephric space on right side. Cannot rule out pancreatitis. Please correlate. Trace right pleural effusion. No pulmonary infiltrate. - Upper GI series - Free air noted - As per surgery patient is for OR due to increasing free air ; s/p ex lap primary repair of duodenal perforation, jourdan patch. Omentectomy. 12/18 - Repeat CT Scan with PO contrast: Demonstration of duodenal perforation at the time of this examination with oral contrast administered prior to the examination seen extrinsic to the duodenum, in the right pericolic gutter extending down to the level of the right ileo psoas. There is questionable low- density collection in the inferior extent of the right rectus sheath though there is no oral contrast seen in this location. The surgical drain currently in place traverses the major portion of the extrinsic intraperitoneal/ retroperitoneal contrast collection. A: Pancreatitis? - Noted on CT C/ab/pel: Limited study. There are linear atelectatic and or scarring changes seen in the right and left upper lobes as well as the left lower lobe. Cholecystectomy with in situ drainage catheter. Findings are consistent with acute pancreatitis with peripancreatic infiltration and small amount of fluid extending into the right para renal space. - Lipase- elevated A: Pancreatic nodule - Questionable 9 mm rounded fluid density mass in the pancreatic body. This was not clearly appreciated on prior CT examination of 12/16/2017. Further evaluation is advised when clinically feasible with multiphasic contrast- enhanced CT. A: Transaminitis, Elevated T. Bili - RESOLVED - Viral hepatitis - negative - Abominal US - Diffuse increased echogenicity in the liver may reflect hepatic steatosis however parenchymal infectious/ inflammatory etiologies cannot be entirely excluded. Clinical and laboratory correlation is advised. Mild perihepatic ascites. Endo: A: Thyroid Nodule - There is a 1.9 cm mass in the lower pole of the left thyroid lobe. - Correlate with thyroid ultrasound examination. A: Hypocalcemia - Repleting A: IGT - HgA1c 5.9 Renal: A: ARF - Improving with HD - 2/2 ATN - MWF schedule - Avoid nephrotoxic drugs - Abdominal US- no sign of renal obstruction - Inserted bruce - Right Shiley catheter inserted 12/20- removed 12/24 - Permacath placed 12/25/17 ID: A: SIRS, Bandemia - resolving ID Consulted - Dr. Quinonez - Afebrile, vitals stable, no leukocytosis, no source of infection - Patient was prince-cultured- all negative - Right dialysis catheter removed 12/24 - culture negative to date - Wound culture - Tanvi - Meropenem renally dosed started 12/18/17, Micafungin 100mg Q12 started 12/21, started Amikacin 750mg Q48H and Daptomycin 600mg Q48H - 12/26 A: Abdominal wall abscess - S/P I&D 12/25/17 - Wound culture - Tanvi - Micafungin 100mg Q12 started 12/21 A: Diarrhea - Resolved - Likely 08/09 to abx - Diff- negative, probiotic started Heme/ Onc: A: Anemia - Hemoglobin baseline - - CT chest, ab, pelvis - no evidence of internal hemorrhage - S/P 1 unit 12/20, 2nd unit transfused 12/25, 3rd unit transfused 12/25 - Continue to monitor A: Hx breast cancer s/p lumpectomy Prophylaxis - PPI Q12 - SCDs, VTE c/i post op / concern for bleeding - Right PICC line 12/20, Right shiley cath inserted 12/20 - REMOVED 12/24, R Permacath placed 12/25 - Currently on TPN DW Dr. Felder, Estefania Veliz DO, PGY-1 <Agapito Felder A - Last Filed: 12/30/17 13:31> CCU Objective - Vital Signs / Intake & Output Vital Signs (Last 4 hours): Vital Signs Temp Pulse Pulse Resp BP BP BP 12/30/17 12:15 99.8 F H 109 H 29 H 83/57 L 12/30/17 12:10 113 H 33 H 83/57 L 12/30/17 12:07 110 H 32 H 93/44 L 12/30/17 12:05 93/44 L 12/30/17 12:00 99.8 F H 112 H 32 H 12/30/17 11:57 114 H 32 H 85/58 L 12/30/17 11:55 115 H 32 H 84/51 L 12/30/17 11:50 85/58 L 12/30/17 11:41 118 H 36 H 93/48 L 12/30/17 11:39 120 H 34 H 94/55 L 12/30/17 11:35 94/55 L 12/30/17 11:28 121 H 35 H 83/53 L 12/30/17 11:20 83/53 L 12/30/17 11:19 123 H 40 H 84/48 L 12/30/17 11:17 127 H 38 H 75/49 L 12/30/17 11:12 132 H 33 H 49/20 L 12/30/17 11:05 84/48 L 12/30/17 11:00 132 H 32 H 12/30/17 10:54 132 H 30 H 133/81 12/30/17 10:50 133/81 12/30/17 10:39 130 H 31 H 115/85 12/30/17 10:35 115/85 12/30/17 10:24 127 H 33 H 120/79 12/30/17 10:20 120/79 12/30/17 10:13 132 H 31 H 110/69 12/30/17 10:05 110/69 12/30/17 10:00 130 H 34 H 12/30/17 09:55 128 H 31 H 151/69 H 12/30/17 09:50 151/69 H 12/30/17 09:40 124 H 30 H 141/76 12/30/17 09:35 141/76 12/30/17 09:25 116 H 30 H 170/81 H 12/30/17 09:20 99.2 F 118 H 30 H 170/81 H Pulse Ox 12/30/17 12:15 98 12/30/17 12:10 99 12/30/17 12:07 99 12/30/17 12:05 12/30/17 12:00 100 12/30/17 11:57 99 12/30/17 11:55 98 12/30/17 11:50 12/30/17 11:41 95 12/30/17 11:39 99 12/30/17 11:35 06/25/18 11:28 99 12/30/17 11:20 12/30/17 11:19 98 12/30/17 11:17 99 12/30/17 11:12 99 12/30/17 11:05 12/30/17 11:00 98 12/30/17 10:54 98 12/30/17 10:50 12/30/17 10:39 97 12/30/17 10:35 12/30/17 10:24 98 12/30/17 10:20 12/30/17 10:13 96 12/30/17 10:05 12/30/17 10:00 97 12/30/17 09:55 97 12/30/17 09:50 12/30/17 09:40 98 12/30/17 09:35 12/30/17 09:25 97 12/30/17 09:20 98 Intake and Output (Last 8hrs): Intake & Output 12/29/17 12/30/17 12/30/17 22:59 06:59 14:59 Intake Total 516 416 252.5 Output Total 421 681 280 Balance 95 -265 -27.5 Weight 243 lb 9.773 oz Intake: IV 7 Intake, IV Amount 516 416 245.5 Right Distal Port PICC 100 Right PICC 80 80 35.5 right picc 2nd port 336 336 210 Oral 0 0 Output: Drainage 420 680 280 KORI 1 200 380 170 KORI 2 220 300 110 Urine 0 Urine, Voided 0 Urine/Stool Mix 1 1 Other: # Voids Urine, Voided 0 0 # Bowel Movements 0 0 - Medications Active Medications: Active Medications Generic Name Dose Route Start Last Admin Trade Name Freq PRN Reason Stop Dose Admin Acetaminophen 650 mg 12/28/17 10:14 12/29/17 09:29 Tylenol 650 Mg Supp OR 650 mg Q6 PRN Administration Fever >100.4 F Albumin Human 25 gm 12/27/17 14:37 12/30/17 11:22 Albumin Human 25% (12.5 Gm/50 Ml) IV 25 gm MWF PRN Administration Other Albuterol/Ipratropium 3 ml 12/28/17 12:00 12/30/17 07:15 Duoneb 3 Mg/0.5 Mg (3 Ml) Ud INH 3 ml RQ4 FESTUS Administration Dextrose 0 ml 12/16/17 12:08 Dextrose 50% Inj IV STAT PRN Hypoglycemia Protocol Protocol Dextrose 15 gm 12/16/17 12:08 Glutose 15 PO ONCE PRN Hypoglycemia Protocol Protocol Glucagon 1 mg 12/16/17 12:08 Glucagen Diagnostic Kit IM STAT PRN Hypoglycemia Protocol Protocol Heparin Sodium (Porcine) 3,700 units 12/25/17 16:46 12/30/17 12:16 Heparin IVP 3,700 units MWF FESTUS Administration Dextrose 1,000 mls @ 0 mls/hr 12/16/17 12:08 Dextrose 5% In Water 1000 Ml IV .Q0M PRN Hypoglycemia Protocol Protocol Per Protocol Meropenem 500 mg/ Sodium 100 mls @ 100 mls/hr 12/18/17 10:00 12/30/17 12:34 Chloride IVPB 100 mls/hr Q12 FESTUS Administration Protocol Micafungin Sodium 100 mg/ 100 mls @ 100 mls/hr 12/21/17 10:00 12/29/17 09:28 Sodium Chloride IV 100 mls/hr Q24H FESTUS Administration Protocol Sodium Chloride 35 meq/ 1,019.75 mls @ 42 mls/hr 12/29/17 18:00 12/29/17 17: 22 Heparin Sodium (Porcine) 1,000 IV 12/30/17 17:59 42 mls/hr units/ Calcium Gluconate 4.65 .Q24H ONE Administration meq/ Amino Acids Daptomycin 600 mg/ Sodium 100 mls @ 100 mls/hr 12/30/17 19:30 Chloride IV 01/04/18 19:31 Q48H FESTUS Protocol Amikacin Sulfate 750 mg/ 253 mls @ 250 mls/hr 12/30/17 20:30 Dextrose IVPB Q48H FESTUS Protocol Dexmedetomidine HCl 200 mcg/ 50 mls @ 5.52 mls/hr 12/30/17 10:03 12/30/17 10: 58 Sodium Chloride IV 0.4 mcg/kg/hr TITR PRN 11.05 mls/hr Agitation Titration Protocol 0.2 MCG/KG/HR Sodium Chloride 35 meq/ 1,030.1663 mls @ 42 mls/hr 12/30/17 18:00 Magnesium Sulfate 3 meq/ IV 12/31/17 17:59 Calcium Gluconate 4.5 meq/ .Q24H ONE Heparin Sodium (Porcine) 1,000 units/ Multivitamins/Vitamin C 10 ml/ Amino Acids Insulin Human Regular 0 unit 12/19/17 00:00 12/30/17 12:28 Novolin R SC 1 unit Q6 [facility] Administration Protocol Octreotide Acetate 300 mcg 12/30/17 14:00 Sandostatin SC TID FESTUS Pantoprazole Sodium 40 mg 12/23/17 22:00 12/30/17 12:34 Protonix Inj IVP 40 mg Q12H FESTUS Administration - Patient Studies Lab Studies: Microbiology Studies 12/24/17 14:20 Blood Culture - Final Blood-Thru [facility] NO GROWTH AFTER 5 DAYS Gram Stain - Final TEST NOT PERFORMED 12/24/17 09:41 Blood Culture - Final Blood-Thru [facility] NO GROWTH AFTER 5 DAYS Gram Stain - Final TEST NOT PERFORMED Lab Studies 12/30/17 12/30/17 12/30/17 Range/Units 11:55 11:53 06:28 WBC 14.7 H (4.8-10.8) K/uL RBC 3.25 L (3.80-5.20) Mil/uL Hgb 9.1 L (11.0-16.0) g/dL Hct 27.5 L (34.0-47.0) % MCV 84.5 (81.0-99.0) fL MCH 28.0 (27.0-31.0) pg MCHC 33.1 (33.0-37.0) g/dL RDW 14.8 H (11.5-14.5) % Plt Count 239 (130-400) K/uL MPV 9.7 (7.2-11.7) fL Neut % (Auto) 75.3 H (50.0-75.0) % Lymph % (Auto) 11.4 L (20.0-40.0) % [place] % (Auto) 9.8 (0.0-10.0) % Eos % (Auto) 2.3 (0.0-4.0) % Baso % (Auto) 1.2 (0.0-2.0) % Neut # (Auto) 11.0 H (1.8-7.0) K/uL Lymph # (Auto) 1.7 (1.0-4.3) K/uL [place] # (Auto) 1.4 H (0.0-0.8) K/uL Eos # (Auto) 0.3 (0.0-0.7) K/uL Baso # (Auto) 0.2 (0.0-0.2) K/uL Puncture Site Lr pCO2 27 L (35-45) mm/Hg pO2 73 L (80-100) mm/Hg HCO3 23.3 (21-28) mmol/L ABG pH 7.49 H (7.35-7.45) ABG Total CO2 21.4 L (22-28) mmol/L ABG O2 Saturation 98.5 H (95-98) % ABG Base Excess -2.1 L (-2.0-3.0) mmol/L ABG Hemoglobin 8.4 L (11.7-17.4) g/dL ABG Carboxyhemoglobin 2.0 H (0.5-1.5) % POC ABG HHb (Measured) 1.5 (0.0-5.0) % ABG Methemoglobin 0.9 (0.0-3.0) % Richard Test Pos ABG Potassium (3.6-5.2) mmol/L A-a O2 Difference 178.0 mm/Hg Respiratory Index 2.4 Hgb O2 Saturation 95.6 (95.0-98.0) % Sodium (132-148) mmol/l Chloride (98-107) mmol/L Glucose (65-105) mg/dl Lactate (0.7-2.1) mmol/L FiO2 40.0 % Potassium (3.6-5.2) mmol/L Carbon Dioxide (22-30) mmol/L Anion Gap (10-20) BUN (7-17) mg/dL Creatinine (0.7-1.2) mg/dL Est GFR ( Amer) Est GFR (Non-Af Amer) POC Glucose (mg/dL) 165 H (65-110) mg/dL Random Glucose (65-105) mg/dL Calcium (8.6-10.4) mg/dl Phosphorus (2.5-4.5) mg/dL Magnesium (1.6-2.3) mg/dL Total Bilirubin (0.2-1.3) mg/dL AST (14-36) U/L ALT (9-52) U/L Alkaline Phosphatase (38-126) U/L Total Protein (6.3-8.3) g/dL Albumin (3.5-5.0) g/dL Globulin (2.2-3.9) gm/dL Albumin/Globulin Ratio (1.0-2.1) Arterial Blood Potassium (3.6-5.2) mmol/L 12/30/17 12/30/17 12/30/17 Range/Units 06:23 05:20 05:04 WBC (4.8-10.8) K/uL RBC (3.80-5.20) Mil/uL Hgb (11.0-16.0) g/dL Hct (34.0-47.0) % MCV (81.0-99.0) fL MCH (27.0-31.0) pg MCHC (33.0-37.0) g/dL RDW (11.5-14.5) % Plt Count (130-400) K/uL MPV (7.2-11.7) fL Neut % (Auto) (50.0-75.0) % Lymph % (Auto) (20.0-40.0) % [place] % (Auto) (0.0-10.0) % Eos % (Auto) (0.0-4.0) % Baso % (Auto) (0.0-2.0) % Neut # (Auto) (1.8-7.0) K/uL Lymph # (Auto) (1.0-4.3) K/uL [place] # (Auto) (0.0-0.8) K/uL Eos # (Auto) (0.0-0.7) K/uL Baso # (Auto) (0.0-0.2) K/uL Puncture Site R rad pCO2 31 L (35-45) mm/Hg pO2 75 L (80-100) mm/Hg HCO3 19.8 L (21-28) mmol/L ABG pH 7.37 (7.35-7.45) ABG Total CO2 18.9 L (22-28) mmol/L ABG O2 Saturation 97.6 (95-98) % ABG Base Excess -6.5 L (-2.0-3.0) mmol/L ABG Hemoglobin 9.4 L (11.7-17.4) g/dL ABG Carboxyhemoglobin 2.0 H (0.5-1.5) % POC ABG HHb (Measured) 2.3 (0.0-5.0) % ABG Methemoglobin 1.1 (0.0-3.0) % Richard Test Pos ABG Potassium (3.6-5.2) mmol/L A-a O2 Difference 171.0 mm/Hg Respiratory Index 2.3 Hgb O2 Saturation 94.7 L (95.0-98.0) % Sodium 143 (132-148) mmol/l Chloride 107 (98-107) mmol/L Glucose (65-105) mg/dl Lactate (0.7-2.1) mmol/L FiO2 40.0 % Potassium 3.9 (3.6-5.2) mmol/L Carbon Dioxide 18 L (22-30) mmol/L Anion Gap 22 H (10-20) BUN 85 H (7-17) mg/dL Creatinine 6.4 H (0.7-1.2) mg/dL Est GFR ( Amer) 8 Est GFR (Non-Af Amer) 6 POC Glucose (mg/dL) 162 H (65-110) mg/dL Random Glucose 159 H (65-105) mg/dL Calcium 7.8 L (8.6-10.4) mg/dl Phosphorus 7.1 H (2.5-4.5) mg/dL Magnesium 2.2 (1.6-2.3) mg/dL Total Bilirubin 0.9 (0.2-1.3) mg/dL AST 55 H D (14-36) U/L ALT 24 (9-52) U/L Alkaline Phosphatase 103 (38-126) U/L Total Protein 6.6 (6.3-8.3) g/dL Albumin 3.1 L (3.5-5.0) g/dL Globulin 3.6 (2.2-3.9) gm/dL Albumin/Globulin Ratio 0.9 L (1.0-2.1) Arterial Blood Potassium (3.6-5.2) mmol/L 12/29/17 12/29/17 12/29/17 Range/Units 23:50 17:23 16:01 WBC (4.8-10.8) K/uL RBC (3.80-5.20) Mil/uL Hgb (11.0-16.0) g/dL Hct (34.0-47.0) % MCV (81.0-99.0) fL MCH (27.0-31.0) pg MCHC (33.0-37.0) g/dL RDW (11.5-14.5) % Plt Count (130-400) K/uL MPV (7.2-11.7) fL Neut % (Auto) (50.0-75.0) % Lymph % (Auto) (20.0-40.0) % [place] % (Auto) (0.0-10.0) % Eos % (Auto) (0.0-4.0) % Baso % (Auto) (0.0-2.0) % Neut # (Auto) (1.8-7.0) K/uL Lymph # (Auto) (1.0-4.3) K/uL [place] # (Auto) (0.0-0.8) K/uL Eos # (Auto) (0.0-0.7) K/uL Baso # (Auto) (0.0-0.2) K/uL Puncture Site Rba pCO2 29 L (35-45) mm/Hg pO2 110 H (80-100) mm/Hg HCO3 21.5 (21-28) mmol/L ABG pH 7.42 (7.35-7.45) ABG Total CO2 19.7 L (22-28) mmol/L ABG O2 Saturation 98.9 H (95-98) % ABG Base Excess -4.4 L (-2.0-3.0) mmol/L ABG Hemoglobin (11.7-17.4) g/dL ABG Carboxyhemoglobin (0.5-1.5) % POC ABG HHb (Measured) (0.0-5.0) % ABG Methemoglobin (0.0-3.0) % Richard Test Na ABG Potassium 3.6 (3.6-5.2) mmol/L A-a O2 Difference 139.0 mm/Hg Respiratory Index 1.3 Hgb O2 Saturation (95.0-98.0) % Sodium 139.0 (132-148) mmol/l Chloride 108.0 H (98-107) mmol/L Glucose 217 H (65-105) mg/dl Lactate 1.5 (0.7-2.1) mmol/L FiO2 40.0 % Potassium (3.6-5.2) mmol/L Carbon Dioxide (22-30) mmol/L Anion Gap (10-20) BUN (7-17) mg/dL Creatinine (0.7-1.2) mg/dL Est GFR ( Amer) Est GFR (Non-Af Amer) POC Glucose (mg/dL) 242 H 231 H (65-110) mg/dL Random Glucose (65-105) mg/dL Calcium (8.6-10.4) mg/dl Phosphorus (2.5-4.5) mg/dL Magnesium (1.6-2.3) mg/dL Total Bilirubin (0.2-1.3) mg/dL AST (14-36) U/L ALT (9-52) U/L Alkaline Phosphatase (38-126) U/L Total Protein (6.3-8.3) g/dL Albumin (3.5-5.0) g/dL Globulin (2.2-3.9) gm/dL Albumin/Globulin Ratio (1.0-2.1) Arterial Blood Potassium 3.6 (3.6-5.2) mmol/L Laboratory Results - last 24 hr 12/29/17 12/29/17 12/29/17 16:01 17:23 23:50 WBC RBC Hgb Hct MCV MCH MCHC RDW Plt Count MPV Neut % (Auto) Lymph % (Auto) [place] % (Auto) Eos % (Auto) Baso % (Auto) Neut # (Auto) Lymph # (Auto) [place] # (Auto) Eos # (Auto) Baso # (Auto) Puncture Site Rba pCO2 29 L pO2 110 H HCO3 21.5 ABG pH 7.42 ABG Total CO2 19.7 L ABG O2 Saturation 98.9 H ABG Base Excess -4.4 L ABG Hemoglobin ABG Carboxyhemoglobin POC ABG HHb (Measured) ABG Methemoglobin Richard Test Na ABG Potassium 3.6 A-a O2 Difference 139.0 Respiratory Index 1.3 Hgb O2 Saturation Sodium 139.0 Chloride 108.0 H Glucose 217 H Lactate 1.5 FiO2 40.0 Potassium Carbon Dioxide Anion Gap BUN Creatinine Est GFR ( Amer) Est GFR (Non-Af Amer) POC Glucose (mg/dL) 231 H 242 H Random Glucose Calcium Phosphorus Magnesium Total Bilirubin AST ALT Alkaline Phosphatase Total Protein Albumin Globulin Albumin/Globulin Ratio Arterial Blood Potassium 3.6 12/30/17 12/30/17 12/30/17 05:04 05:20 06:23 WBC RBC Hgb Hct MCV MCH MCHC RDW Plt Count MPV Neut % (Auto) Lymph % (Auto) [place] % (Auto) Eos % (Auto) Baso % (Auto) Neut # (Auto) Lymph # (Auto) [place] # (Auto) Eos # (Auto) Baso # (Auto) Puncture Site R rad pCO2 31 L pO2 75 L HCO3 19.8 L ABG pH 7.37 ABG Total CO2 18.9 L ABG O2 Saturation 97.6 ABG Base Excess -6.5 L ABG Hemoglobin 9.4 L ABG Carboxyhemoglobin 2.0 H POC ABG HHb (Measured) 2.3 ABG Methemoglobin 1.1 Richard Test Pos ABG Potassium A-a O2 Difference 171.0 Respiratory Index 2.3 Hgb O2 Saturation 94.7 L Sodium 143 Chloride 107 Glucose Lactate FiO2 40.0 Potassium 3.9 Carbon Dioxide 18 L Anion Gap 22 H BUN 85 H Creatinine 6.4 H Est GFR ( Amer) 8 Est GFR (Non-Af Amer) 6 POC Glucose (mg/dL) 162 H Random Glucose 159 H Calcium 7.8 L Phosphorus 7.1 H Magnesium 2.2 Total Bilirubin 0.9 AST 55 H D ALT 24 Alkaline Phosphatase 103 Total Protein 6.6 Albumin 3.1 L Globulin 3.6 Albumin/Globulin Ratio 0.9 L Arterial Blood Potassium 12/30/17 12/30/17 12/30/17 06:28 11:53 11:55 WBC 14.7 H RBC 3.25 L Hgb 9.1 L Hct 27.5 L MCV 84.5 MCH 28.0 MCHC 33.1 RDW 14.8 H Plt Count 239 MPV 9.7 Neut % (Auto) 75.3 H Lymph % (Auto) 11.4 L [place] % (Auto) 9.8 Eos % (Auto) 2.3 Baso % (Auto) 1.2 Neut # (Auto) 11.0 H Lymph # (Auto) 1.7 [place] # (Auto) 1.4 H Eos # (Auto) 0.3 Baso # (Auto) 0.2 Puncture Site Lr pCO2 27 L pO2 73 L HCO3 23.3 ABG pH 7.49 H ABG Total CO2 21.4 L ABG O2 Saturation 98.5 H ABG Base Excess -2.1 L ABG Hemoglobin 8.4 L ABG Carboxyhemoglobin 2.0 H POC ABG HHb (Measured) 1.5 ABG Methemoglobin 0.9 Richard Test Pos ABG Potassium A-a O2 Difference 178.0 Respiratory Index 2.4 Hgb O2 Saturation 95.6 Sodium Chloride Glucose Lactate FiO2 40.0 Potassium Carbon Dioxide Anion Gap BUN Creatinine Est GFR ( Amer) Est GFR (Non-Af Amer) POC Glucose (mg/dL) 165 H Random Glucose Calcium Phosphorus Magnesium Total Bilirubin AST ALT Alkaline Phosphatase Total Protein Albumin Globulin Albumin/Globulin Ratio Arterial Blood Potassium Critical Care Progress Note - Nutrition Nutrition: Nutrition Category Date Time Status NPO Diet [DIET] Diets 12/20/17 Dinner Active Attending/Attestation - Attestation I have personally seen and examined this patient.: Yes I have fully participated in the care of the patient.: Yes I have reviewed all pertinent clinical information: Yes Notes (Text): 12/30/17 13:20 CCM History as per housestaff Pt denies complaint when asked / confused / sl. tachypneic/ occ moaning Neck- no jvd lungs- bilat bs Heart-rr aBd-2 KORI drains with bilious fluid, midline wound with sl. bilious drainage, bs+ , sl. 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
[2017-12-30] MEDS ORDERED: EPOETIN ALFA 4,000 UNIT/ML ML Dialysis IV ONE (11:45)
--- NOTE | 2017-12-30 11:45 | CP.PCM.PN ---
Subjective - Date & Time of Evaluation Date of Evaluation: 12/30/17 Time of Evaluation: 09:00 - Subjective Subjective: seen on HD on NRBM afeb nad Objective - Vital Signs/Intake and Output Vital Signs (last 24 hours): Temp Pulse Resp BP Pulse Ox 99.2 F 127 H 33 H 83/53 L 98 12/30/17 09:20 12/30/17 10:24 12/30/17 10:24 12/30/17 11:20 12/30/17 10:24 Intake and Output: 12/30/17 12/30/17 06:59 18:59 Intake Total 724 252.5 Output Total 882 280 Balance -158 -27.5 - Medications Medications: Current Medications Acetaminophen (Tylenol 650 Mg Supp) 650 mg AR Q6 PRN PRN Reason: Fever >100.4 F Last Admin: 12/29/17 09:29 Dose: 650 mg Albumin Human (Albumin Human 25% (12.5 Gm/50 Ml)) 25 gm IV MWF PRN PRN Reason: Other Last Admin: 12/30/17 11:22 Dose: 25 gm Albuterol/Ipratropium (Duoneb 3 Mg/0.5 Mg (3 Ml) Ud) 3 ml INH RQ4 FESTUS Last Admin: 12/30/17 07:15 Dose: 3 ml Dextrose (Dextrose 50% Inj) 0 ml IV STAT PRN; Protocol PRN Reason: Hypoglycemia Protocol Dextrose (Glutose 15) 15 gm PO ONCE PRN; Protocol PRN Reason: Hypoglycemia Protocol Epoetin Juan F (Procrit) 8,000 unit IV ONCE ONE Stop: 12/30/17 11:46 Glucagon (Glucagen Diagnostic Kit) 1 mg IM STAT PRN; Protocol PRN Reason: Hypoglycemia Protocol Heparin Sodium (Porcine) (Heparin) 3,700 units IVP [facility] Last Admin: 12/27/17 17:40 Dose: 3,700 units Dextrose (Dextrose 5% In Water 1000 Ml) 1,000 mls @ 0 mls/hr IV .Q0M PRN; Protocol; Per Protocol PRN Reason: Hypoglycemia Protocol Meropenem 500 mg/ Sodium (Chloride) 100 mls @ 100 mls/hr IVPB Q12 FESTUS PRN Reason: Protocol Last Admin: 12/29/17 21:22 Dose: 100 mls/hr Micafungin Sodium 100 mg/ (Sodium Chloride) 100 mls @ 100 mls/hr IV Q24H FESTUS PRN Reason: Protocol Last Admin: 12/29/17 09:28 Dose: 100 mls/hr Sodium Chloride 35 meq/Heparin Sodium (Porcine) 1,000 units/ Calcium Gluconate 4.65 meq/ Amino Acids 1,019.75 mls @ 42 mls/hr IV .Q24H ONE Stop: 12/30/17 17:59 Last Admin: 12/29/17 17:22 Dose: 42 mls/hr Daptomycin 600 mg/ Sodium (Chloride) 100 mls @ 100 mls/hr IV Q48H FESTUS PRN Reason: Protocol Stop: 01/04/18 19:31 Amikacin Sulfate 750 mg/ (Dextrose) 253 mls @ 250 mls/hr IVPB Q48H FESTUS PRN Reason: Protocol Dexmedetomidine HCl 200 mcg/ (Sodium Chloride) 50 mls @ 5.52 mls/hr IV TITR PRN ; Protocol; 0.2 MCG/KG/HR PRN Reason: Agitation Last Titration: 12/30/17 10:58 Dose: 0.4 mcg/kg/hr, 11.05 mls/hr Sodium Chloride 35 meq/Magnesium Sulfate 3 meq/Calcium Gluconate 4.5 meq/ Heparin Sodium (Porcine) 1,000 units/ Multivitamins/Vitamin C 10 ml/ Amino Acids 1,030.1663 mls @ 42 mls/hr IV .Q24H ONE Stop: 12/31/17 17:59 Insulin Human Regular (Novolin R) 0 unit SC Q6 FESTUS PRN Reason: Protocol Last Admin: 12/30/17 05:13 Dose: 1 unit Octreotide Acetate (Sandostatin) 300 mcg SC TID [facility] Pantoprazole Sodium (Protonix Inj) 40 mg IVP Q12H [facility] Last Admin: 12/29/17 21:21 Dose: 40 mg - Labs Labs: 12/30/17 06:28 12/30/17 06:23 PT 14.0 SECONDS (9.7-12.2) H 12/24/17 08:54 INR 1.3 12/24/17 08:54 APTT 40 SECONDS (21-34) H 12/18/17 12:39 - Constitutional Appears: No Acute Distress, Confused, Chronically Ill - Head Exam Head Exam: NORMOCEPHALIC - Eye Exam Eye Exam: PERRL - ENT Exam ENT Exam: Mucous Membranes Dry - Neck Exam Neck Exam: absent: Lymphadenopathy - Respiratory Exam Respiratory Exam: Decreased Breath Sounds - Cardiovascular Exam Cardiovascular Exam: REGULAR RHYTHM - GI/Abdominal Exam GI & Abdominal Exam: Distended - Rectal Exam Rectal Exam: Deferred - Exam Exam: NORMAL INSPECTION - Extremities Exam Extremities Exam: absent: Pedal Edema - Back Exam Back Exam: absent: CVA tenderness (L), CVA tenderness (R) Assessment and Plan (1) Peritonitis Status: Acute (2) Sepsis Status: Acute (3) Sepsis Status: Acute (4) Renal failure (ARF), acute on chronic Status: Acute (5) Renal failure (ARF), acute on chronic Status: Acute - Assessment and Plan (Free Text) Assessment: iv rx in progress poor prognosis s/p perf viscus bile peritonitis abd wall cellultitis shock resp failure and renal failure
[2017-12-30] MEDS: EPOETIN ALFA 4,000 UNIT/ML ML Dialysis IV SCH (11:53)
[2017-12-30 12:01] LABS: ABG ALLEN TEST POS; ARTERIAL BLOOD GAS HCO3 23.3 mmol/L (21-28); ARTERIAL BLOOD GAS HEMOGLOBIN 8.4 g/dL (11.7-17.4); ARTERIAL BLOOD GAS O2 SAT 98.5 % (95-98); ARTERIAL BLOOD GAS PCO2 27 mm/Hg (35-45); ARTERIAL BLOOD GAS PH 7.49 (7.35-7.45); ARTERIAL BLOOD GAS PO2 73 mm/Hg (80-100); ARTERIAL BLOOD GAS TCO2 21.4 mmol/L (22-28)
[2017-12-30] MEDS: Meropenem 500 MG in Sodium Chloride 0.9% 100 ML IVPB SCH ×2 (12:34→22:21)
--- NOTE | 2017-12-30 12:56 | CP.PCM.CON ---
History of Present Illness - History of Present Illness History of Present Illness: Palliative consult requested by Doctor Estefania for goals of care discussion Patient s a 77 yo female who had EGD on 12/16/17, for endoscopic resection of duodenal carcinoid tumor. 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 The acute volume loss brought to acute kidney failure and patient had to start HD. Since the admission patient had few repeated CT of abdomen and chest and no mets were found. Today patient had EGD with homeostasis therapy. HB today 9.1, WBC 14.7. Patient is on multiple IV antibiotics. PMH: HTN, COPD, Breast tumor, S/P lumpectomy Soc. Hx: , lives alone two floors bellow her daughter , at the same [facility] F[facility]. Hx: daughter denies known family Hx Review of Systems - Review of Systems All systems: reviewed and no additional remarkable complaints except Review of Systems: ROS obtained from nursing due to patient's complex conditon. Per nursing patient had tolerated IV Tx well, occasionally SOB, needing BiPap. Past Patient History - Past Medical History & Family History Past Medical History?: Yes - Past Social History Smoking Status: Former Smoker - CARDIAC Hx Cardiac Disorders: Yes Hx Hypertension: Yes (PT DENIES THOUGH NOT ON MEDS) - PULMONARY Hx Respiratory Disorders: Yes Hx Asthma: Yes Hx Chronic Obstructive Pulmonary Disease (COPD): Yes - NEUROLOGICAL Hx Neurological Disorder: No - HEENT Hx HEENT Problems: Yes Hx Cataracts: Yes (RT EYE) - RENAL Hx Chronic Kidney Disease: No - ENDOCRINE/METABOLIC Hx Endocrine Disorders: No - HEMATOLOGICAL/ONCOLOGICAL Hx Blood Disorders: No - INTEGUMENTARY Hx Dermatological Problems: No - MUSCULOSKELETAL/RHEUMATOLOGICAL Hx Musculoskeletal Disorders: Yes Hx Back Pain: Yes Hx Degenerative Joint Disease: Yes Hx Falls: Yes Hx Fractures: Yes (LEFT FOOT) Other/Comment: SCIATICA - GASTROINTESTINAL Hx Gastrointestinal Disorders: Yes Hx Gall Bladder Disease: Yes - GENITOURINARY/GYNECOLOGICAL Hx Genitourinary Disorders: No - PSYCHIATRIC Hx Psychophysiologic Disorder: Yes Hx Anxiety: Yes Hx Depression: Yes - SURGICAL HISTORY Hx Surgeries: Yes Hx Breast Biopsy: Yes (X2 RT BREAST) Hx Cholecystectomy: Yes ([place]) Hx Herniorrhaphy: Yes (RT INGUINAL X3) Hx Joint Replacement: Yes (BILATERAL KNEE ) Hx Orthopedic Surgery: Yes (SCREW RT FOOT) - ANESTHESIA Hx Anesthesia: Yes Hx Anesthesia Reactions: No Hx Malignant Hyperthermia: No Has any member of the family had a problem w/ anesthesia?: No Meds Allergies/Adverse Reactions: Allergies Allergy/AdvReac Type Severity Reaction Status Date / Time PASSION FRUIT Allergy Severe ANAPHYLAXIS Uncoded 11/03/13 11:17 - Medications Medications: Current Medications Acetaminophen (Tylenol 650 Mg Supp) 650 mg [place] Q6 PRN PRN Reason: Fever >100.4 F Last Admin: 12/29/17 09:29 Dose: 650 mg Albumin Human (Albumin Human 25% (12.5 Gm/50 Ml)) 25 gm IV MWF PRN PRN Reason: Other Last Admin: 12/30/17 11:22 Dose: 25 gm Albuterol/Ipratropium (Duoneb 3 Mg/0.5 Mg (3 Ml) Ud) 3 ml INH RQ4 [facility] Last Admin: 12/30/17 07:15 Dose: 3 ml Dextrose (Dextrose 50% Inj) 0 ml IV STAT PRN; Protocol PRN Reason: Hypoglycemia Protocol Dextrose (Glutose 15) 15 gm PO ONCE PRN; Protocol PRN Reason: Hypoglycemia Protocol Glucagon (Glucagen Diagnostic Kit) 1 mg IM STAT PRN; Protocol PRN Reason: Hypoglycemia Protocol Heparin Sodium (Porcine) (Heparin) 3,[address] [facility] Last Admin: 12/30/17 12:16 Dose: 3,700 units Dextrose (Dextrose 5% In Water 1000 Ml) 1,000 mls @ 0 mls/hr IV .Q0M PRN; Protocol; Per Protocol PRN Reason: Hypoglycemia Protocol Meropenem 500 mg/ Sodium (Chloride) 100 mls @ 100 mls/hr IVPB Q12 [facility] PRN Reason: Protocol Last Admin: 12/30/17 12:34 Dose: 100 mls/hr Micafungin Sodium 100 mg/ (Sodium Chloride) 100 mls @ 100 mls/hr IV Q24H [facility] PRN Reason: Protocol Last Admin: 12/29/17 09:28 Dose: 100 mls/hr Sodium Chloride 35 meq/Heparin Sodium (Porcine) 1,000 units/ Calcium Gluconate 4.65 meq/ Amino Acids 1,019.75 mls @ 42 mls/hr IV .Q24H ONE Stop: 12/30/17 17:59 Last Admin: 12/29/17 17:22 Dose: 42 mls/hr Daptomycin 600 mg/ Sodium (Chloride) 100 mls @ 100 mls/hr IV Q48H [facility] PRN Reason: Protocol Stop: 01/04/18 19:31 Amikacin Sulfate 750 mg/ (Dextrose) 253 mls @ 250 mls/hr IVPB Q48H [facility] PRN Reason: Protocol Dexmedetomidine HCl 200 mcg/ (Sodium Chloride) 50 mls @ 5.52 mls/hr IV TITR PRN ; Protocol; 0.2 MCG/KG/HR PRN Reason: Agitation Last Titration: 12/30/17 10:58 Dose: 0.4 mcg/kg/hr, 11.05 mls/hr Sodium Chloride 35 meq/Magnesium Sulfate 3 meq/Calcium Gluconate 4.5 meq/ Heparin Sodium (Porcine) 1,000 units/ Multivitamins/Vitamin C 10 ml/ Amino Acids 1,030.1663 mls @ 42 mls/hr IV .Q24H ONE Stop: 12/31/17 17:59 Insulin Human Regular (Novolin R) 0 unit SC Q6 [facility] PRN Reason: Protocol Last Admin: 12/30/17 12:28 Dose: 1 unit Octreotide Acetate (Sandostatin) 300 mcg SC TID [facility] Pantoprazole Sodium (Protonix Inj) 40 mg IVP Q12H [facility] Last Admin: 12/30/17 12:34 Dose: 40 mg Physical Exam - Constitutional Appears: In Acute Distress, Chronically Ill - Head Exam Head Exam: ATRAUMATIC, NORMAL INSPECTION, NORMOCEPHALIC - Eye Exam Eye Exam: EOMI, Normal appearance, PERRL Pupil Exam: NORMAL ACCOMODATION - ENT Exam ENT Exam: Mucous Membranes Moist, Normal Exam - Neck Exam Neck exam: Positive for: Normal Inspection - Respiratory Exam Respiratory Exam: Decreased Breath Sounds - Cardiovascular Exam Cardiovascular Exam: Tachycardia - GI/Abdominal Exam GI & Abdominal Exam: Diminished Bowel Sounds - Rectal Exam Rectal Exam: Deferred - Extremities Exam Extremities exam: Positive for: pedal edema - Back Exam Back exam: NORMAL INSPECTION - Neurological Exam Neurological exam: Alert, Altered - Psychiatric Exam Psychiatric exam: Agitated - Skin Skin Exam: Normal Color, Warm Results - Vital Signs Recent Vital Signs: Last Vital Signs Temp 99.8 F H 12/30/17 12:15 Pulse 109 H 12/30/17 12:15 Resp 29 H 12/30/17 12:15 BP 83/57 L 12/30/17 12:15 Pulse Ox 98 12/30/17 12:15 - Labs Result Diagrams: 12/30/17 06:28 12/30/17 06:23 Labs: Laboratory Results - last 24 hr 12/29/17 12/29/17 12/29/17 16:01 17:23 23:50 WBC RBC Hgb Hct MCV MCH MCHC RDW Plt Count MPV Neut % (Auto) Lymph % (Auto) Power % (Auto) Eos % (Auto) Baso % (Auto) Neut # (Auto) Lymph # (Auto) Power # (Auto) Eos # (Auto) Baso # (Auto) Puncture Site Rba pCO2 29 L pO2 110 H HCO3 21.5 ABG pH 7.42 ABG Total CO2 19.7 L ABG O2 Saturation 98.9 H ABG Base Excess -4.4 L ABG Hemoglobin ABG Carboxyhemoglobin POC ABG HHb (Measured) ABG Methemoglobin Richard Test Na ABG Potassium 3.6 A-a O2 Difference 139.0 Respiratory Index 1.3 Hgb O2 Saturation Sodium 139.0 Chloride 108.0 H Glucose 217 H Lactate 1.5 FiO2 40.0 Potassium Carbon Dioxide Anion Gap BUN Creatinine Est GFR ( Amer) Est GFR (Non-Af Amer) POC Glucose (mg/dL) 231 H 242 H Random Glucose Calcium Phosphorus Magnesium Total Bilirubin AST ALT Alkaline Phosphatase Total Protein Albumin Globulin Albumin/Globulin Ratio Arterial Blood Potassium 3.6 12/30/17 12/30/17 12/30/17 05:04 05:20 06:23 WBC RBC Hgb Hct MCV MCH MCHC RDW Plt Count MPV Neut % (Auto) Lymph % (Auto) Power % (Auto) Eos % (Auto) Baso % (Auto) Neut # (Auto) Lymph # (Auto) Power # (Auto) Eos # (Auto) Baso # (Auto) Puncture Site R rad pCO2 31 L pO2 75 L HCO3 19.8 L ABG pH 7.37 ABG Total CO2 18.9 L ABG O2 Saturation 97.6 ABG Base Excess -6.5 L ABG Hemoglobin 9.4 L ABG Carboxyhemoglobin 2.0 H POC ABG HHb (Measured) 2.3 ABG Methemoglobin 1.1 Richard Test Pos ABG Potassium A-a O2 Difference 171.0 Respiratory Index 2.3 Hgb O2 Saturation 94.7 L Sodium 143 Chloride 107 Glucose Lactate FiO2 40.0 Potassium 3.9 Carbon Dioxide 18 L Anion Gap 22 H BUN 85 H Creatinine 6.4 H Est GFR ( Amer) 8 Est GFR (Non-Af Amer) 6 POC Glucose (mg/dL) 162 H Random Glucose 159 H Calcium 7.8 L Phosphorus 7.1 H Magnesium 2.2 Total Bilirubin 0.9 AST 55 H D ALT 24 Alkaline Phosphatase 103 Total Protein 6.6 Albumin 3.1 L Globulin 3.6 Albumin/Globulin Ratio 0.9 L Arterial Blood Potassium 12/30/17 12/30/17 12/30/17 06:28 11:53 11:55 WBC 14.7 H RBC 3.25 L Hgb 9.1 L Hct 27.5 L MCV 84.5 MCH 28.0 MCHC 33.1 RDW 14.8 H Plt Count 239 MPV 9.7 Neut % (Auto) 75.3 H Lymph % (Auto) 11.4 L Power % (Auto) 9.8 Eos % (Auto) 2.3 Baso % (Auto) 1.2 Neut # (Auto) 11.0 H Lymph # (Auto) 1.7 Power # (Auto) 1.4 H Eos # (Auto) 0.3 Baso # (Auto) 0.2 Puncture Site Lr pCO2 27 L pO2 73 L HCO3 23.3 ABG pH 7.49 H ABG Total CO2 21.4 L ABG O2 Saturation 98.5 H ABG Base Excess -2.1 L ABG Hemoglobin 8.4 L ABG Carboxyhemoglobin 2.0 H POC ABG HHb (Measured) 1.5 ABG Methemoglobin 0.9 Richard Test Pos ABG Potassium A-a O2 Difference 178.0 Respiratory Index 2.4 Hgb O2 Saturation 95.6 Sodium Chloride Glucose Lactate FiO2 40.0 Potassium Carbon Dioxide Anion Gap BUN Creatinine Est GFR ( Amer) Est GFR (Non-Af Amer) POC Glucose (mg/dL) 165 H Random Glucose Calcium Phosphorus Magnesium Total Bilirubin AST ALT Alkaline Phosphatase Total Protein Albumin Globulin Albumin/Globulin Ratio Arterial Blood Potassium Assessment & Plan - Assessment and Plan (Free Text) Assessment: palliative consult Code status Full Code, there is no Advance directive on chart, PPS 20% I reviewed medical records, all diagnostic studies, examined patient in the bed. Patient is alert, lethargic, looking ill. Daughter Vickie at bed side. Patent makes eye contacts and intend to fallow commends when talked to in Lao. HD is gong on at present. Breath sounds are diminished. Patient uses BiPap occasionally, RR 30. Tachycardic; HR 119 . Daughter believes patient is in pain. Abdomen flat and tender. Abdominal surgical wound + tanvi; Mycomne IV on board. WBC 14.7, afebrile. Goals of care discussed with daughter Vickie away from the bed side, as HD was taking place. I elicited her understanding of patient's condition. Vickie all along denied any knowledge of patient's diagnosis and repetitively had stated that her mother has come her " for simply scanning". Vickie denied knowledge of any duodenal tumor. Further I discussed daughter's expectations of care given to her mother. She hopes, her mother will recover and return home to her regular life style. I supported her and suggested that it may be a lengthy process. Daughter accepted it. Code status discssed. Daughter was very clear that she would want all measures to support her mother's life, including aggressive measures, regardless of quality of life. I felt that daughter would get even more angry if I disclose information about duodenal tumor and decided to call for another family meeting with PMD present. Impression * Chronically ill patient with acute blood loss post EGD procedure * Weakness and lethargy * Patient's daughter Vickie [phone] advocates for patient * Patient unable to advocate for herself * Daughter advocating and is requesting Full Code * Daughter Vickie denied knowledge of patient's diagnosis Suggestion * Continue all measures to support life * Promote skin integrity * Daughter will need constant reinforcement and reassurance of her mother's condition * Another family meeting with PMD present for diagnose discussion and further treatment options. Advance planing 30 min
--- NOTE | 2017-12-30 13:34 | CP.PCM.PN ---
Subjective - Date & Time of Evaluation Date of Evaluation: 12/30/17 Time of Evaluation: 13:15 - Subjective Subjective: Patient was extubated yesterday afternoon. She currently is non verbal, on propfol ggt. She was only able to open her eyes and look at me notherwise she was not able to do more Overall prognosis is poor at this time. Objective - Vital Signs/Intake and Output Vital Signs (last 24 hours): Temp Pulse Resp BP Pulse Ox 99.8 F H 100 H 27 H 87/36 L 100 12/30/17 12:15 12/30/17 13:25 12/30/17 13:25 12/30/17 13:25 12/30/17 13:25 Intake and Output: 12/30/17 12/30/17 06:59 18:59 Intake Total 724 458.3 Output Total 882 480 Balance -158 -21.7 - Medications Medications: Current Medications Acetaminophen (Tylenol 650 Mg Supp) 650 mg [place] Q6 PRN PRN Reason: Fever >100.4 F Last Admin: 12/29/17 09:29 Dose: 650 mg Albumin Human (Albumin Human 25% (12.5 Gm/50 Ml)) 25 gm IV MWF PRN PRN Reason: Other Last Admin: 12/30/17 11:22 Dose: 25 gm Albuterol/Ipratropium (Duoneb 3 Mg/0.5 Mg (3 Ml) Ud) 3 ml INH RQ4 [facility] Last Admin: 12/30/17 07:15 Dose: 3 ml Dextrose (Dextrose 50% Inj) 0 ml IV STAT PRN; Protocol PRN Reason: Hypoglycemia Protocol Dextrose (Glutose 15) 15 gm PO ONCE PRN; Protocol PRN Reason: Hypoglycemia Protocol Glucagon (Glucagen Diagnostic Kit) 1 mg IM STAT PRN; Protocol PRN Reason: Hypoglycemia Protocol Heparin Sodium (Porcine) (Heparin) 3,700 units IVP MWF [facility] Last Admin: 12/30/17 12:16 Dose: 3,700 units Dextrose (Dextrose 5% In Water 1000 Ml) 1,000 mls @ 0 mls/hr IV .Q0M PRN; Protocol; Per Protocol PRN Reason: Hypoglycemia Protocol Meropenem 500 mg/ Sodium (Chloride) 100 mls @ 100 mls/hr IVPB Q12 [facility] PRN Reason: Protocol Last Admin: 12/30/17 12:34 Dose: 100 mls/hr Micafungin Sodium 100 mg/ (Sodium Chloride) 100 mls @ 100 mls/hr IV Q24H [facility] PRN Reason: Protocol Last Admin: 12/29/17 09:28 Dose: 100 mls/hr Sodium Chloride 35 meq/Heparin Sodium (Porcine) 1,000 units/ Calcium Gluconate 4.65 meq/ Amino Acids 1,019.75 mls @ 42 mls/hr IV .Q24H ONE Stop: 12/30/17 17:59 Last Admin: 12/29/17 17:22 Dose: 42 mls/hr Daptomycin 600 mg/ Sodium (Chloride) 100 mls @ 100 mls/hr IV Q48H [facility] PRN Reason: Protocol Stop: 01/04/18 19:31 Amikacin Sulfate 750 mg/ (Dextrose) 253 mls @ 250 mls/hr IVPB Q48H [facility] PRN Reason: Protocol Dexmedetomidine HCl 200 mcg/ (Sodium Chloride) 50 mls @ 5.52 mls/hr IV TITR PRN ; Protocol; 0.2 MCG/KG/HR PRN Reason: Agitation Last Titration: 12/30/17 10:58 Dose: 0.4 mcg/kg/hr, 11.05 mls/hr Sodium Chloride 35 meq/Magnesium Sulfate 3 meq/Calcium Gluconate 4.5 meq/ Heparin Sodium (Porcine) 1,000 units/ Multivitamins/Vitamin C 10 ml/ Amino Acids 1,030.1663 mls @ 42 mls/hr IV .Q24H ONE Stop: 12/31/17 17:59 Insulin Human Regular (Novolin R) 0 unit SC Q6 [facility] PRN Reason: Protocol Last Admin: 12/30/17 12:28 Dose: 1 unit Octreotide Acetate (Sandostatin) 300 mcg SC TID [facility] Pantoprazole Sodium (Protonix Inj) 40 mg IVP Q12H [facility] Last Admin: 12/30/17 12:34 Dose: 40 mg - Labs Labs: 12/30/17 06:28 12/30/17 06:23 PT 14.0 SECONDS (9.7-12.2) H 12/24/17 08:54 INR 1.3 12/24/17 08:54 APTT 40 SECONDS (21-34) H 12/18/17 12:39 - Constitutional Appears: Unkempt, Chronically Ill - Head Exam Additional comments: NGT - Eye Exam Eye Exam: absent: EOMI, Normal appearance - ENT Exam ENT Exam: Normal Exam - Respiratory Exam Respiratory Exam: Rales, Rhonchi - Cardiovascular Exam Cardiovascular Exam: REGULAR RHYTHM - GI/Abdominal Exam GI & Abdominal Exam: Soft Additional comments: KORI drains, with thick liquid each Dressing over ventral abdomen - Neurological Exam Neurological Exam: Altered, Awake - Psychiatric Exam Psychiatric exam: Depressed, Flat Affect - Skin Skin Exam: Normal Color, Warm Assessment and Plan - Assessment and Plan (Free Text) Assessment: Assessment and Plan - Assessment and Plan (Free Text) Assessment: This is a 77 y/o female with history of hypertension, COPD, breast cancer s/p lumpectomy and 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 she also had HTN crisis which was treated with cardene drip. Patient was admitted to ICU Returned to OR on 12/18/17 due to increasing free air noted on repeat CT scan and underwent s/p ex lap primary repair of duodenal perforation, jourdan patch. Omentectomy. Patient developed acute renal failure /ATN likely due to hydrodynamic injury leading to ATN Right shiley catheter placed - 12/20 - removed 12/24. Dialysis 12/20 and 12/21. Permacath placed 12/25. Dialysis 12/25 and 1 unit PRBC transfused. Patient was having fever spikes with negative cultures CT with oral contrast done on 12/27 showed duodenal perforation/leak. Patient had Endoscopic closure using clips by Dr Flynn on 12/27/2017 Plan: 1.Sepsis/bile peritonitis/duodenal perforation and leak 12/30: Both drains show a lot of drainage at this time 770 and 710. Cultures from 12/25 showing tanvi albican growth at that time. Abx at this time are Daptomycin, Amikacin, and Gentamicin. Also on Micafungin for the Tanvi albicans. Patient had endoscopic resection of duodenal carcinoid tumor on 12/16/2017 Ct reported intraperitoneal air and patient underwent Exploratory lap and repair of perforation on 12/19. Patient is on antibiotics as per Dr Quinonez.continue Amikacin, Meropenem, Micafungin and daptomycin patient has fever spikes,abdominal wall culture growing tanvi albicans Patient just had CT chest,abdomen and pelvis without contrast yesterday CT scan repeated with oral contrast showed done on 12/27 showed duodenal perforation/leak. Patient had Endoscopic closure using clips by Dr Flynn on 12/27 KORI drains continue to have bilious output with persistent duodenal leak GI recommend to get additional drain by IR and consider placement of J-tube for feeding Discussed with DR Flynn at ICU-No plan for any surgical procedure.Continue octreotide to reduce secretion Discussed with surgeon Dr Alatorre. No plan for further surgery. Keep NPO, on TPN 2. KORI drain site cellulitis/abdominal wall abscess ,s/p I and D by surgery continue antibiotics and antifungal as per ID Abscess positive for tanvi albicans 3. Acute renal failure/Oliguric/ATN started on dialysis on 12/20 Right shiley catheter placed - 12/20 - removed 12/24. Dialysis 12/20 and 12/21. Permacath placed 12/25. Dialysis 12/25 HD on MWF as per nephrology .continue to monitor for spontaneous renal recovery we will follow with nephrology medication dose adjustment with Renal function and avoid nephrotoxic meds. 5.Fever-She has fever spikes Culture's urine and blood negative,abdominal abscess positive for fungus wbc remains high continue Amikacin, Meropenem,Micafungin and daptomycin as per Dr Quinonez. 6.Reparatory failure 12/30: Was extubated yesterday afternoon. 7.Anemia- stool OB negative s/p PRBC transfused. Continue epogen 8.DVT prophylaxis is on heparin SQ and GI prophylaxis is on protonix
--- NOTE | 2017-12-30 13:36 | CP.PCM.PN ---
Objective - Vital Signs/Intake and Output Vital Signs (last 24 hours): Temp Pulse Resp BP Pulse Ox 99.8 F H 100 H 27 H 87/36 L 100 12/30/17 12:15 12/30/17 13:25 12/30/17 13:25 12/30/17 13:25 12/30/17 13:25 Intake and Output: 12/30/17 12/30/17 06:59 18:59 Intake Total 724 458.3 Output Total 882 480 Balance -158 -21.7 - Medications Medications: Current Medications Acetaminophen (Tylenol 650 Mg Supp) 650 mg [place] Q6 PRN PRN Reason: Fever >100.4 F Last Admin: 12/29/17 09:29 Dose: 650 mg Albumin Human (Albumin Human 25% (12.5 Gm/50 Ml)) 25 gm IV MWF PRN PRN Reason: Other Last Admin: 12/30/17 11:22 Dose: 25 gm Albuterol/Ipratropium (Duoneb 3 Mg/0.5 Mg (3 Ml) Ud) 3 ml INH RQ4 [facility] Last Admin: 12/30/17 07:15 Dose: 3 ml Dextrose (Dextrose 50% Inj) 0 ml IV STAT PRN; Protocol PRN Reason: Hypoglycemia Protocol Dextrose (Glutose 15) 15 gm PO ONCE PRN; Protocol PRN Reason: Hypoglycemia Protocol Glucagon (Glucagen Diagnostic Kit) 1 mg IM STAT PRN; Protocol PRN Reason: Hypoglycemia Protocol Heparin Sodium (Porcine) (Heparin) 3,700 units IVP MWF [facility] Last Admin: 12/30/17 12:16 Dose: 3,700 units Dextrose (Dextrose 5% In Water 1000 Ml) 1,000 mls @ 0 mls/hr IV .Q0M PRN; Protocol; Per Protocol PRN Reason: Hypoglycemia Protocol Meropenem 500 mg/ Sodium (Chloride) 100 mls @ 100 mls/hr IVPB Q12 [facility] PRN Reason: Protocol Last Admin: 12/30/17 12:34 Dose: 100 mls/hr Micafungin Sodium 100 mg/ (Sodium Chloride) 100 mls @ 100 mls/hr IV Q24H [facility] PRN Reason: Protocol Last Admin: 12/29/17 09:28 Dose: 100 mls/hr Sodium Chloride 35 meq/Heparin Sodium (Porcine) 1,000 units/ Calcium Gluconate 4.65 meq/ Amino Acids 1,019.75 mls @ 42 mls/hr IV .Q24H ONE Stop: 12/30/17 17:59 Last Admin: 12/29/17 17:22 Dose: 42 mls/hr Daptomycin 600 mg/ Sodium (Chloride) 100 mls @ 100 mls/hr IV Q48H [facility] PRN Reason: Protocol Stop: 01/04/18 19:31 Amikacin Sulfate 750 mg/ (Dextrose) 253 mls @ 250 mls/hr IVPB Q48H [facility] PRN Reason: Protocol Dexmedetomidine HCl 200 mcg/ (Sodium Chloride) 50 mls @ 5.52 mls/hr IV TITR PRN ; Protocol; 0.2 MCG/KG/HR PRN Reason: Agitation Last Titration: 12/30/17 10:58 Dose: 0.4 mcg/kg/hr, 11.05 mls/hr Sodium Chloride 35 meq/Magnesium Sulfate 3 meq/Calcium Gluconate 4.5 meq/ Heparin Sodium (Porcine) 1,000 units/ Multivitamins/Vitamin C 10 ml/ Amino Acids 1,030.1663 mls @ 42 mls/hr IV .Q24H ONE Stop: 12/31/17 17:59 Insulin Human Regular (Novolin R) 0 unit SC Q6 [facility] PRN Reason: Protocol Last Admin: 12/30/17 12:28 Dose: 1 unit Octreotide Acetate (Sandostatin) 300 mcg SC TID [facility] Pantoprazole Sodium (Protonix Inj) 40 mg IVP Q12H [facility] Last Admin: 12/30/17 12:34 Dose: 40 mg - Labs Labs: 12/30/17 06:28 12/30/17 06:23 PT 14.0 SECONDS (9.7-12.2) H 12/24/17 08:54 INR 1.3 12/24/17 08:54 APTT 40 SECONDS (21-34) H 12/18/17 12:39
[2017-12-30] MEDS: Micafungin 100 MG in Sodium Chloride 0.9% 100 ML IV SCH (13:42)
[2017-12-30] MEDS: Octreotide 500 mcg/ml Inj SC SCH ×2 (15:05→18:54)
--- NOTE | 2017-12-30 15:59 | CP.PCM.PN ---
Subjective - Date & Time of Evaluation Date of Evaluation: 12/30/17 Time of Evaluation: 15:57 - Subjective Subjective: Nephrology Consultation Note: Assessment: critical oliguric Acute Kidney Injury (N17.9) likely hemodynamic injury leading to ATN with Pulmonary congestion, started dialysis 12/20/17 HAGMA with respi compensation, hypocalcemia with Vit D insuff (level 23) carcinoid HTN crisis s/p resection now resolved acute abdomen with perforation s/p repair 12/18/17 (ex lap) hypertension, COPD, breast cancer s/p lumpectomy and duodenal neuroendocrine tumor Hyperphos Plan Plan for HD today as MWF as ordered. continue to monitor for spontaneous renal recovery. BP low during HD. IV albumin prn No ACEI/ARB due to MANFRED. Maintain hemodynamics stable. Monitor Input/Output, daily weights and renal function with basic metabolic panel anemia: PRBC as needed. ordered epogen 10,000 unit 3 times a week will give Vit D and iron/MVI, phos binders once pt on diet Dose meds/antibiotics for reduced GFR and dialysis status. Avoid fleets enema/ magnesium based laxatives. Avoid nephrotoxins/NSAIDs/ iodinated contrast ( unless needed emergently) Glycemic control Further work up/management as per primary team Thanks for allowing me to participate in care of your patient. Will follow patient with you. Please call if any Qs. 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 she also had HTN crisis which was treated with cardene drip. renal consult for MANFRED eval. also found to have free air in abdomen Denies OTC/herbal meds or NSAIDs No recent iodinated contrast exposure. Noted obvious episodes of low BP (89/51). ROS: unable as pt delirious Physical Examination: General Appearance: extubated, ill appearing Vitals reviewed and noted as below Head; Atraumatic, normocephalic ENT: deferred. has NG tube EYES: Pupils are equal, round and reactive to light accommodation. Eye muscles and extraocular movement intact. Sclera is anicteric. Neck; supple no lymphadenopathy, no thyromegaly or bruit Lungs: Increased respiratory rate/effort. Breath sounds bilateral equal and bilateral with few wheeze Heart: Normal rate. s1s2 normal. No rub or gallop. Extremities: no edema. No varicose veins Neurological: Patient is awake but delirious Skin: Warm and dry. Normal turgor. No rash. Palpitation: Normal elasticity for age Abdomen: no abdominal tenderness with out guarding but no rigidity no organomegaly s/p exlap Psych: unable MSK: no joint tenderness or swelling. Digits and nails normal, no deformity : kidney or bladder not palpable. has bruce with dark colored urine access: permacath Labs/imaging reviewed. Past medical history, past surgical history, family history, social history, allergy reviewed and noted as below Family hx: no hx of CKD. Rest non-contributory renal imaging: WNL FeNa 0.7% UA 1+ protein no blood Objective - Vital Signs/Intake and Output Vital Signs (last 24 hours): Temp Pulse Resp BP Pulse Ox 98.1 F 102 H 27 H 94/31 L 98 12/30/17 15:49 12/30/17 15:07 12/30/17 15:07 12/30/17 15:07 12/30/17 15:07 Intake and Output: 12/30/17 12/30/17 06:59 18:59 Intake Total 724 760.0 Output Total 882 2150 Balance -158 -1390.0 - Medications Medications: Current Medications Acetaminophen (Tylenol 650 Mg Supp) 650 mg MT Q6 PRN PRN Reason: Fever >100.4 F Last Admin: 12/29/17 09:29 Dose: 650 mg Albumin Human (Albumin Human 25% (12.5 Gm/50 Ml)) 25 gm IV MWF PRN PRN Reason: Other Last Admin: 12/30/17 11:22 Dose: 25 gm Albuterol/Ipratropium (Duoneb 3 Mg/0.5 Mg (3 Ml) Ud) 3 ml INH RQ4 [facility] Last Admin: 12/30/17 13:46 Dose: 3 ml Dextrose (Dextrose 50% Inj) 0 ml IV STAT PRN; Protocol PRN Reason: Hypoglycemia Protocol Dextrose (Glutose 15) 15 gm PO ONCE PRN; Protocol PRN Reason: Hypoglycemia Protocol Epoetin Juan F (Procrit) 10,000 unit IV [facility] [place] Glucagon (Glucagen Diagnostic Kit) 1 mg IM STAT PRN; Protocol PRN Reason: Hypoglycemia Protocol Heparin Sodium (Porcine) (Heparin) 3,700 units IVP [facility] Last Admin: 12/30/17 12:16 Dose: 3,700 units Dextrose (Dextrose 5% In Water 1000 Ml) 1,000 mls @ 0 mls/hr IV .Q0M PRN; Protocol; Per Protocol PRN Reason: Hypoglycemia Protocol Meropenem 500 mg/ Sodium (Chloride) 100 mls @ 100 mls/hr IVPB Q12 [facility] PRN Reason: Protocol Last Admin: 12/30/17 12:34 Dose: 100 mls/hr Micafungin Sodium 100 mg/ (Sodium Chloride) 100 mls @ 100 mls/hr IV Q24H [facility] PRN Reason: Protocol Last Admin: 12/30/17 13:42 Dose: 100 mls/hr Sodium Chloride 35 meq/Heparin Sodium (Porcine) 1,000 units/ Calcium Gluconate 4.65 meq/ Amino Acids 1,019.75 mls @ 42 mls/hr IV .Q24H ONE Stop: 12/30/17 17:59 Last Admin: 12/29/17 17:22 Dose: 42 mls/hr Daptomycin 600 mg/ Sodium (Chloride) 100 mls @ 100 mls/hr IV Q48H [facility] PRN Reason: Protocol Stop: 01/04/18 19:31 Amikacin Sulfate 750 mg/ (Dextrose) 253 mls @ 250 mls/hr IVPB Q48H [facility] PRN Reason: Protocol Dexmedetomidine HCl 200 mcg/ (Sodium Chloride) 50 mls @ 5.52 mls/hr IV TITR PRN ; Protocol; 0.2 MCG/KG/HR PRN Reason: Agitation Last Admin: 12/30/17 13:59 Dose: 0.4 mcg/kg/hr, 11.05 mls/hr Sodium Chloride 35 meq/Magnesium Sulfate 3 meq/Calcium Gluconate 4.5 meq/ Heparin Sodium (Porcine) 1,000 units/ Multivitamins/Vitamin C 10 ml/ Amino Acids 1,030.1663 mls @ 42 mls/hr IV .Q24H ONE Stop: 12/31/17 17:59 Insulin Human Regular (Novolin R) 0 unit SC Q6 [facility] PRN Reason: Protocol Last Admin: 12/30/17 12:28 Dose: 1 unit Octreotide Acetate (Sandostatin) 300 mcg SC TID [facility] Last Admin: 12/30/17 15:05 Dose: 300 mcg Pantoprazole Sodium (Protonix Inj) 40 mg IVP Q12H [facility] Last Admin: 12/30/17 12:34 Dose: 40 mg - Labs Labs: 12/30/17 06:28 12/30/17 06:23 PT 14.0 SECONDS (9.7-12.2) H 12/24/17 08:54 INR 1.3 12/24/17 08:54 APTT 40 SECONDS (21-34) H 12/18/17 12:39
[2017-12-30] MEDS ORDERED: TPN #7 IV ONE (18:00)
[2017-12-30] MEDS ORDERED: DAPTOmycin 600 MG in Sodium Chloride 0.9% 100 ML IV SCH (19:30)
[2017-12-30] MEDS ORDERED: Sodium Chloride 0.9% 500 ML IV ONE (21:31)
[2017-12-31] MEDS: Albuterol-Ipratrop 3 mg / 0.5 (3 ml) UD INH SCH ×7 (00:23→23:36)
[2017-12-31 05:28] LABS: ABG ALLEN TEST POS; ARTERIAL BLOOD GAS HCO3 19.8 mmol/L (21-28); ARTERIAL BLOOD GAS HEMOGLOBIN 7.9 g/dL (11.7-17.4); ARTERIAL BLOOD GAS O2 SAT 99.2 % (95-98); ARTERIAL BLOOD GAS PCO2 29 mm/Hg (35-45); ARTERIAL BLOOD GAS PH 7.39 (7.35-7.45); ARTERIAL BLOOD GAS PO2 84 mm/Hg (80-100); ARTERIAL BLOOD GAS TCO2 18.5 mmol/L (22-28)
[2017-12-31] MEDS: (Novolin R) Insulin Human Regular 100 units/ml vial SC SCH ×4 (06:05→23:51)
[2017-12-31 06:43] LABS: BASO # 0.1 K/uL (0.0-0.2); BASO % 0.8 % (0.0-2.0); EOS # 0.3 K/uL (0.0-0.7); EOS % 2.1 % (0.0-4.0); HEMOGLOBIN 7.8 g/dL (11.0-16.0); LYMPH # 1.5 K/uL (1.0-4.3); LYMPH % 11.9 % (20.0-40.0); MEAN CELL VOLUME 85.1 fL (81.0-99.0); MEAN CORPUSCULAR HEMOGLOBIN 27.9 pg (27.0-31.0); MEAN CORPUSCULAR HGB CONC 32.8 g/dL (33.0-37.0); MEAN PLATELET VOLUME 9.6 fL (7.2-11.7); MONO # 1.1 K/uL (0.0-0.8); MONO % 9.2 % (0.0-10.0); NEUT # 9.3 K/uL (1.8-7.0); RBC 2.78 Mil/uL (3.80-5.20); RED CELL DISTRIBUTION WIDTH 14.7 % (11.5-14.5); WHITE BLOOD COUNT 12.3 K/uL (4.8-10.8)
[2017-12-31 07:23] LABS: ALB/GLOB RATIO 0.8 (1.0-2.1); ALBUMIN 2.8 g/dL (3.5-5.0); CALCIUM 7.7 mg/dl (8.6-10.4)
--- NOTE | 2017-12-31 08:22 | CP.PCM.PN ---
<Aris,Benita - Last Filed: 12/31/17 08:27> Subjective - Date & Time of Evaluation Date of Evaluation: 12/31/17 Time of Evaluation: 08:10 - Subjective Subjective: GI Fellow PGY4 Progress Note Pt seen and evaluated at bedside, pt extubated. Pt hemodynamically stable, with no pressor support. Pt is s/p permacath RIJ, tolerating HD. Pt with an abscess around drain and surgical site that was I&D, SIXTO with 1,000 bilious output. Ongoing duodenal leak. Pt more alert/awake. +Fevers ROS:A 12pt ROS was unable to be obtained due to AMS Objective - Vital Signs/Intake and Output Vital Signs (last 24 hours): Temp Pulse Resp BP Pulse Ox 99.8 F H 82 23 93/41 L 100 12/31/17 04:00 12/31/17 06:07 12/31/17 06:07 12/31/17 06:07 12/31/17 06:07 Intake and Output: 12/31/17 12/31/17 06:59 18:59 Intake Total 1389.5 Output Total 588 Balance 801.5 - Medications Medications: Current Medications Acetaminophen (Tylenol 650 Mg Supp) 650 mg VA Q6 PRN PRN Reason: Fever >100.4 F Last Admin: 12/29/17 09:29 Dose: 650 mg Albumin Human (Albumin Human 25% (12.5 Gm/50 Ml)) 25 gm IV MWF PRN PRN Reason: Other Last Admin: 12/30/17 11:22 Dose: 25 gm Albuterol/Ipratropium (Duoneb 3 Mg/0.5 Mg (3 Ml) Ud) 3 ml INH RQ4 [facility] Last Admin: 12/31/17 03:13 Dose: 3 ml Dextrose (Dextrose 50% Inj) 0 ml IV STAT PRN; Protocol PRN Reason: Hypoglycemia Protocol Dextrose (Glutose 15) 15 gm PO ONCE PRN; Protocol PRN Reason: Hypoglycemia Protocol Epoetin Juan F (Procrit) 10,000 unit IV [facility] Glucagon (Glucagen Diagnostic Kit) 1 mg IM STAT PRN; Protocol PRN Reason: Hypoglycemia Protocol Heparin Sodium (Porcine) (Heparin) 3,700 units IVP [facility] Last Admin: 12/30/17 12:16 Dose: 3,700 units Dextrose (Dextrose 5% In Water 1000 Ml) 1,000 mls @ 0 mls/hr IV .Q0M PRN; Protocol; Per Protocol PRN Reason: Hypoglycemia Protocol Meropenem 500 mg/ Sodium (Chloride) 100 mls @ 100 mls/hr IVPB Q12 [facility] PRN Reason: Protocol Last Admin: 12/30/17 22:21 Dose: 100 mls/hr Micafungin Sodium 100 mg/ (Sodium Chloride) 100 mls @ 100 mls/hr IV Q24H [facility] PRN Reason: Protocol Last Admin: 12/30/17 13:42 Dose: 100 mls/hr Daptomycin 600 mg/ Sodium (Chloride) 100 mls @ 100 mls/hr IV Q48H [facility] PRN Reason: Protocol Stop: 01/04/18 19:31 Last Admin: 12/30/17 18:51 Dose: 100 mls/hr Amikacin Sulfate 750 mg/ (Dextrose) 253 mls @ 250 mls/hr IVPB Q48H [facility] PRN Reason: Protocol Last Admin: 12/30/17 19:59 Dose: 250 mls/hr Dexmedetomidine HCl 200 mcg/ (Sodium Chloride) 50 mls @ 5.52 mls/hr IV TITR PRN ; Protocol; 0.2 MCG/KG/HR PRN Reason: Agitation Last Admin: 12/30/17 23:00 Dose: 0.2 mcg/kg/hr, 5.52 mls/hr Sodium Chloride 35 meq/Magnesium Sulfate 3 meq/Calcium Gluconate 4.5 meq/ Heparin Sodium (Porcine) 1,000 units/ Multivitamins/Vitamin C 10 ml/ Amino Acids 1,030.1663 mls @ 42 mls/hr IV .Q24H ONE Stop: 12/31/17 17:59 Last Admin: 12/30/17 17:30 Dose: 42 mls/hr Insulin Human Regular (Novolin R) 0 unit SC Q6 [facility] PRN Reason: Protocol Last Admin: 12/31/17 06:05 Dose: 2 unit Octreotide Acetate (Sandostatin) 300 mcg SC TID [facility] Last Admin: 12/30/17 18:54 Dose: 300 mcg Pantoprazole Sodium (Protonix Inj) 40 mg IVP Q12H [facility] Last Admin: 12/30/17 22:15 Dose: 40 mg - Labs Labs: 12/31/17 06:32 12/31/17 06:20 PT 14.0 SECONDS (9.7-12.2) H 12/24/17 08:54 INR 1.3 12/24/17 08:54 APTT 40 SECONDS (21-34) H 12/18/17 12:39 - Constitutional Appears: Chronically Ill - Head Exam Head Exam: ATRAUMATIC, NORMAL INSPECTION, NORMOCEPHALIC - Eye Exam Eye Exam: EOMI, Normal appearance, PERRL Pupil Exam: PERRL - ENT Exam ENT Exam: Mucous Membranes Moist - Neck Exam Neck Exam: Full ROM - Respiratory Exam Respiratory Exam: Respiratory Distress, NORMAL BREATHING PATTERN - Cardiovascular Exam Cardiovascular Exam: Tachycardia, +S1, +S2 - GI/Abdominal Exam GI & Abdominal Exam: Distended, Soft, Tenderness, Normal Bowel Sounds Additional comments: sixto drain, cellulites and surgical wound infection - Extremities Exam Extremities Exam: Full ROM, Normal Inspection - Neurological Exam Neurological Exam: Alert, Awake - Psychiatric Exam Psychiatric exam: Anxious, Flat Affect - Skin Skin Exam: Dry, Intact, Normal Color, Warm Assessment and Plan - Assessment and Plan (Free Text) Assessment: This is a 77 year old female with past medical history of hypertension, COPD, breast cancer s/p lumpectomy that presented to same day 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 Pt is s/p EGD/EUS with EMR complicated by bleeding and perforation s/p clip placement x 7, epi injection, and bipolar cautery. 1. Duodenal perforation s/p surgical repair 2. 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 ARF, ATN on HD 4. Sepsis 5. VDRF-now extubated 6. Abdominal cellulites, abscess 7. Ongoing duodenal leak s/p EGD with OTSC x 2 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, perforation that was treated with a combination of clipping, electrocautery and epinephrine 12/16/17 - Duodenal perforation with surgical intervention and repair of perforation with jourdan patch 12/18/17 - Ongoing duodenal leak seen on CT scan s/p EGD with OTSC x 2 with partial closure of leak 12/27/17 - Anemia, H/H stable, monitor H/H, no active GI bleeding - Protonix BID - IV abx by ID - Pt clinically hemodynamically stable, no pressor - ARF likely ATN, s/p initiation of HD 12/20/17, monitor renal function - Pt on TPN by ICU team - Abdominal wall abscess/cellulites s/p I&D - VDRF s/p extubation 12/29/17 - Plan for endoscopic duodenal stent to seal leak tomorrow, consent tomorrow - Will continue to follow pt closely <Thomas Cline - Last Filed: 12/31/17 08:41> Objective - Vital Signs/Intake and Output Vital Signs (last 24 hours): Temp Pulse Resp BP Pulse Ox 99.8 F H 82 23 93/41 L 100 12/31/17 04:00 12/31/17 06:07 12/31/17 06:07 12/31/17 06:07 12/31/17 06:07 Intake and Output: 12/31/17 12/31/17 06:59 18:59 Intake Total 1389.5 Output Total 588 Balance 801.5 - Medications Medications: Current Medications Acetaminophen (Tylenol 650 Mg Supp) 650 mg VA Q6 PRN PRN Reason: Fever >100.4 F Last Admin: 12/29/17 09:29 Dose: 650 mg Albumin Human (Albumin Human 25% (12.5 Gm/50 Ml)) 25 gm IV F PRN PRN Reason: Other Last Admin: 12/30/17 11:22 Dose: 25 gm Albuterol/Ipratropium (Duoneb 3 Mg/0.5 Mg (3 Ml) Ud) 3 ml INH RQ4 [facility] Last Admin: 12/31/17 07:15 Dose: 3 ml Dextrose (Dextrose 50% Inj) 0 ml IV STAT PRN; Protocol PRN Reason: Hypoglycemia Protocol Dextrose (Glutose 15) 15 gm PO ONCE PRN; Protocol PRN Reason: Hypoglycemia Protocol Epoetin Juan F (Procrit) 10,000 unit IV [facility] Glucagon (Glucagen Diagnostic Kit) 1 mg IM STAT PRN; Protocol PRN Reason: Hypoglycemia Protocol Heparin Sodium (Porcine) (Heparin) 3,700 units IVP [facility] Last Admin: 12/30/17 12:16 Dose: 3,700 units Dextrose (Dextrose 5% In Water 1000 Ml) 1,000 mls @ 0 mls/hr IV .Q0M PRN; Protocol; Per Protocol PRN Reason: Hypoglycemia Protocol Meropenem 500 mg/ Sodium (Chloride) 100 mls @ 100 mls/hr IVPB Q12 [facility] PRN Reason: Protocol Last Admin: 12/30/17 22:21 Dose: 100 mls/hr Micafungin Sodium 100 mg/ (Sodium Chloride) 100 mls @ 100 mls/hr IV Q24H [facility] PRN Reason: Protocol Last Admin: 12/30/17 13:42 Dose: 100 mls/hr Daptomycin 600 mg/ Sodium (Chloride) 100 mls @ 100 mls/hr IV Q48H [facility] PRN Reason: Protocol Stop: 01/04/18 19:31 Last Admin: 12/30/17 18:51 Dose: 100 mls/hr Amikacin Sulfate 750 mg/ (Dextrose) 253 mls @ 250 mls/hr IVPB Q48H [facility] PRN Reason: Protocol Last Admin: 12/30/17 19:59 Dose: 250 mls/hr Dexmedetomidine HCl 200 mcg/ (Sodium Chloride) 50 mls @ 5.52 mls/hr IV TITR PRN ; Protocol; 0.2 MCG/KG/HR PRN Reason: Agitation Last Admin: 12/30/17 23:00 Dose: 0.2 mcg/kg/hr, 5.52 mls/hr Sodium Chloride 35 meq/Magnesium Sulfate 3 meq/Calcium Gluconate 4.5 meq/ Heparin Sodium (Porcine) 1,000 units/ Multivitamins/Vitamin C 10 ml/ Amino Acids 1,030.1663 mls @ 42 mls/hr IV .Q24H ONE Stop: 12/31/17 17:59 Last Admin: 12/30/17 17:30 Dose: 42 mls/hr Insulin Human Regular (Novolin R) 0 unit SC Q6 [facility] PRN Reason: Protocol Last Admin: 12/31/17 06:05 Dose: 2 unit Octreotide Acetate (Sandostatin) 300 mcg SC TID [facility] Last Admin: 12/30/17 18:54 Dose: 300 mcg Pantoprazole Sodium (Protonix Inj) 40 mg IVP Q12H [facility] Last Admin: 12/30/17 22:15 Dose: 40 mg - Labs Labs: 12/31/17 06:32 12/31/17 06:20 PT 14.0 SECONDS (9.7-12.2) H 12/24/17 08:54 INR 1.3 12/24/17 08:54 APTT 40 SECONDS (21-34) H 12/18/17 12:39 Attending/Attestation - Attestation I have personally seen and examined this patient.: Yes I have fully participated in the care of the patient.: Yes I have reviewed all pertinent clinical information, including history, physical exam and plan: Yes Notes (Text): 12/31/17 08:35 I have seen and examined patient with GI fellow. She is seen resting in bed on O2 ventimask, remains in critical care unit. She continues to have significant bilious output via surgical drain and she is noted to have katie-surgical wound abscess s/p I&D. Review of vitals from this morning shows hypotension. HTN COPD Obesity Acute renal failure, now on HD Duodenal carcinoid s/p EMR complicated by perforation s/p attempted surgical repair, unsuccessful with ongoing bile leak Katie-surgical wound abscess - NPO - Continue with TPN - Continue with antibiotic therapy as per ID - Continue with PPI therapy - Follow up renal recommendations, patient received HD yesterday - Case was discussed with surgical team regarding potential options including bilroth operative procedure, however will tentatively plan for EGD with duodenal stent placement tomorrow with Dr. Flynn. Risks/benefits of this were discussed with family in detail who agree to proceed with procedure. Ideally would favor PEJ placement during time of procedure for enteric feeding, however will now need to defer due to abdominal wound infection. Patient will eventually require duodenal stent removal at outside facility within 1 month. Will continue to monitor patient clinical course.
[2017-12-31] MEDS: Micafungin 100 MG in Sodium Chloride 0.9% 100 ML IV SCH (09:32)
[2017-12-31] MEDS: Meropenem 500 MG in Sodium Chloride 0.9% 100 ML IVPB SCH ×2 (09:32→21:08)
[2017-12-31] MEDS: Dexmedetomidine Hydrochloride 200 MCG in Sodium Chloride 0.9% 48 ML IV PRN (09:34)
[2017-12-31] MEDS: Octreotide 500 mcg/ml Inj SC SCH ×3 (10:34→17:34)
--- NOTE | 2017-12-31 10:45 | CP.CCUPN ---
<Estefania Veliz - Last Filed: 12/31/17 10:42> CCU Subjective - Physician Review Subjective (Free Text): Patient seen and examined at bedside. Patient extubated 12/29/17. Currently on nonbreather. Patient is able to follow commands, unable to speak in cohesive phrases. Patient is still lethargic. 12/31/17 10:56 Surgical residents were at bedside. 100cc expressed from abdominal site after staple removal, plan for wound vac placement. CCU Objective - Vital Signs / Intake & Output Vital Signs (Last 4 hours): Vital Signs Temp Pulse Resp BP Pulse Ox 12/31/17 08:38 100.7 F H 12/31/17 08:07 92 H 31 H 105/42 L 98 12/31/17 08:00 100.7 F H 12/31/17 07:07 88 27 H 114/41 L 100 Intake and Output (Last 8hrs): Intake & Output 12/30/17 12/31/17 12/31/17 22:59 06:59 14:59 Intake Total 1279.2 397.0 145.0 Output Total 609 374 120 Balance 670.2 23.0 25.0 Weight 242 lb 7.421 oz Intake: IV 33 17 50 Intake, IV Amount 1246.2 380.0 95.0 Right Distal Port PICC 850 Right PICC 60.2 44.0 11.0 right picc 2nd port 336 336 84 Output: Drainage 609 374 120 KORI 1 470 360 120 KORI 2 139 14 Other: # Bowel Movements 1 1 - Physical Exam Head: Positive for: Atraumatic, Normocephalic, Ecchymosis Extroacular Muscles: Positive for: EOMI Conjunctiva: Positive for: Normal Mouth: Positive for: Other (INTUBATED) Nose (External): Positive for: Other (NGT in place ) Respiratory/Chest: Positive for: Clear to Auscultation. Negative for: Decreased Breath Sounds Cardiovascular: Positive for: Regular Rate and Rhythm Abdomen: Positive for: Tenderness, Normal Bowel Sounds, Other (KORI drains in place, s/p I & D 12/25/17 - dressing clean, dry, intact ). Negative for: Distention Upper Extremity: Positive for: Normal Inspection, NORMAL PULSES, Neurovascularly Intact, Capillary Refill < 2s Lower Extremity: Positive for: Normal Inspection, NORMAL PULSES, Neurovascularly Intact, Capillary Refill < 2 s Neurological: Positive for: GCS=15, CN II-XII Intact Skin: Positive for: Warm, Dry, Normal Color Psychiatric: Positive for: Alert - Medications Active Medications: Active Medications Generic Name Dose Route Start Last Admin Trade Name Freq PRN Reason Stop Dose Admin Acetaminophen 650 mg 12/28/17 10:14 12/31/17 08:38 Tylenol 650 Mg Supp NE 650 mg Q6 PRN Administration Fever >100.4 F Albumin Human 25 gm 12/27/17 14:37 12/30/17 11:22 Albumin Human 25% (12.5 Gm/50 Ml) IV 25 gm MWF PRN Administration Other Albuterol/Ipratropium 3 ml 12/28/17 12:00 12/31/17 07:15 Duoneb 3 Mg/0.5 Mg (3 Ml) Ud INH 3 ml RQ4 FESTUS Administration Dextrose 0 ml 12/16/17 12:08 Dextrose 50% Inj IV STAT PRN Hypoglycemia Protocol Protocol Dextrose 15 gm 12/16/17 12:08 Glutose 15 PO ONCE PRN Hypoglycemia Protocol Protocol Epoetin Juan F 10,000 unit 01/01/18 09:00 Procrit IV MWF FESTUS Glucagon 1 mg 12/16/17 12:08 Glucagen Diagnostic Kit IM STAT PRN Hypoglycemia Protocol Protocol Heparin Sodium (Porcine) 3,700 units 12/25/17 16:46 12/30/17 12:16 Heparin IVP 3,700 units MWF FESTUS Administration Dextrose 1,000 mls @ 0 mls/hr 12/16/17 12:08 Dextrose 5% In Water 1000 Ml IV .Q0M PRN Hypoglycemia Protocol Protocol Per Protocol Meropenem 500 mg/ Sodium 100 mls @ 100 mls/hr 12/18/17 10:00 12/31/17 09:32 Chloride IVPB 100 mls/hr Q12 FESTUS Administration Protocol Micafungin Sodium 100 mg/ 100 mls @ 100 mls/hr 12/21/17 10:00 12/31/17 09:32 Sodium Chloride IV 100 mls/hr Q24H FESTUS Administration Protocol Daptomycin 600 mg/ Sodium 100 mls @ 100 mls/hr 12/30/17 19:30 12/30/17 18:51 Chloride IV 01/04/18 19:31 100 mls/hr Q48H FESTUS Administration Protocol Amikacin Sulfate 750 mg/ 253 mls @ 250 mls/hr 12/30/17 20:30 12/30/17 19:59 Dextrose IVPB 250 mls/hr Q48H FESTUS Administration Protocol Dexmedetomidine HCl 200 mcg/ 50 mls @ 5.52 mls/hr 12/30/17 10:03 12/31/17 09: 34 Sodium Chloride IV 0.2 mcg/kg/hr TITR PRN 5.52 mls/hr Agitation Administration Protocol 0.2 MCG/KG/HR Sodium Chloride 35 meq/ 1,030.1663 mls @ 42 mls/hr 12/30/17 18:00 12/30/17 17 :30 Magnesium Sulfate 3 meq/ IV 12/31/17 17:59 42 mls/hr Calcium Gluconate 4.5 meq/ .Q24H ONE Administration Heparin Sodium (Porcine) 1,000 units/ Multivitamins/Vitamin C 10 ml/ Amino Acids Insulin Human Regular 0 unit 12/19/17 00:00 12/31/17 06:05 Novolin R SC 2 unit Q6 FESTUS Administration Protocol Octreotide Acetate 300 mcg 12/30/17 14:00 12/31/17 10:34 Sandostatin SC 300 mcg TID FESTUS Administration Pantoprazole Sodium 40 mg 12/23/17 22:00 12/31/17 09:32 Protonix Inj IVP 40 mg Q12H FESTUS Administration - Patient Studies Lab Studies: Lab Studies 12/31/17 12/31/17 12/31/17 Range/Units 06:32 06:20 06:02 WBC 12.3 H (4.8-10.8) K/uL RBC 2.78 L (3.80-5.20) Mil/uL Hgb 7.8 L (11.0-16.0) g/dL Hct 23.7 L (34.0-47.0) % MCV 85.1 (81.0-99.0) fL MCH 27.9 (27.0-31.0) pg MCHC 32.8 L (33.0-37.0) g/dL RDW 14.7 H (11.5-14.5) % Plt Count 174 (130-400) K/uL MPV 9.6 (7.2-11.7) fL Neut % (Auto) 76.0 H (50.0-75.0) % Lymph % (Auto) 11.9 L (20.0-40.0) % [place] % (Auto) 9.2 (0.0-10.0) % Eos % (Auto) 2.1 (0.0-4.0) % Baso % (Auto) 0.8 (0.0-2.0) % Neut # (Auto) 9.3 H (1.8-7.0) K/uL Lymph # (Auto) 1.5 (1.0-4.3) K/uL [place] # (Auto) 1.1 H (0.0-0.8) K/uL Eos # (Auto) 0.3 (0.0-0.7) K/uL Baso # (Auto) 0.1 (0.0-0.2) K/uL Puncture Site pCO2 (35-45) mm/Hg pO2 (80-100) mm/Hg HCO3 (21-28) mmol/L ABG pH (7.35-7.45) ABG Total CO2 (22-28) mmol/L ABG O2 Saturation (95-98) % ABG Base Excess (-2.0-3.0) mmol/L ABG Hemoglobin (11.7-17.4) g/dL ABG Carboxyhemoglobin (0.5-1.5) % POC ABG HHb (Measured) (0.0-5.0) % ABG Methemoglobin (0.0-3.0) % Richard Test A-a O2 Difference mm/Hg Respiratory Index Hgb O2 Saturation (95.0-98.0) % FiO2 % Sodium 140 (132-148) mmol/L Potassium 3.7 (3.6-5.2) mmol/L Chloride 104 (98-107) mmol/L Carbon Dioxide 20 L (22-30) mmol/L Anion Gap 20 (10-20) BUN 67 H (7-17) mg/dL Creatinine 5.5 H (0.7-1.2) mg/dL Est GFR ( Amer) 9 Est GFR (Non-Af Amer) 7 POC Glucose (mg/dL) 202 H (65-110) mg/dL Random Glucose 192 H (65-105) mg/dL Calcium 7.7 L (8.6-10.4) mg/dl Phosphorus 6.4 H (2.5-4.5) mg/dL Magnesium 2.0 (1.6-2.3) mg/dL Total Bilirubin 0.8 (0.2-1.3) mg/dL AST 37 H D (14-36) U/L ALT 23 (9-52) U/L Alkaline Phosphatase 88 (38-126) U/L Total Protein 6.3 (6.3-8.3) g/dL Albumin 2.8 L (3.5-5.0) g/dL Globulin 3.5 (2.2-3.9) gm/dL Albumin/Globulin Ratio 0.8 L (1.0-2.1) Prealbumin (17.6-36.0) mg/dL Procalcitonin (0.19-0.49) NG/ML 12/31/17 12/31/17 12/30/17 Range/Units 05:17 00:22 23:28 WBC (4.8-10.8) K/uL RBC (3.80-5.20) Mil/uL Hgb (11.0-16.0) g/dL Hct (34.0-47.0) % MCV (81.0-99.0) fL MCH (27.0-31.0) pg MCHC (33.0-37.0) g/dL RDW (11.5-14.5) % Plt Count (130-400) K/uL MPV (7.2-11.7) fL Neut % (Auto) (50.0-75.0) % Lymph % (Auto) (20.0-40.0) % [place] % (Auto) (0.0-10.0) % Eos % (Auto) (0.0-4.0) % Baso % (Auto) (0.0-2.0) % Neut # (Auto) (1.8-7.0) K/uL Lymph # (Auto) (1.0-4.3) K/uL [place] # (Auto) (0.0-0.8) K/uL Eos # (Auto) (0.0-0.7) K/uL Baso # (Auto) (0.0-0.2) K/uL Puncture Site Rr pCO2 29 L (35-45) mm/Hg pO2 84 (80-100) mm/Hg HCO3 19.8 L (21-28) mmol/L ABG pH 7.39 (7.35-7.45) ABG Total CO2 18.5 L (22-28) mmol/L ABG O2 Saturation 99.2 H (95-98) % ABG Base Excess -6.6 L (-2.0-3.0) mmol/L ABG Hemoglobin 7.9 L (11.7-17.4) g/dL ABG Carboxyhemoglobin 2.1 H (0.5-1.5) % POC ABG HHb (Measured) 0.8 (0.0-5.0) % ABG Methemoglobin 1.0 (0.0-3.0) % Richard Test Pos A-a O2 Difference 165.0 mm/Hg Respiratory Index 2.0 Hgb O2 Saturation 96.1 (95.0-98.0) % FiO2 40.0 % Sodium (132-148) mmol/L Potassium (3.6-5.2) mmol/L Chloride (98-107) mmol/L Carbon Dioxide (22-30) mmol/L Anion Gap (10-20) BUN (7-17) mg/dL Creatinine (0.7-1.2) mg/dL Est GFR ( Amer) Est GFR (Non-Af Amer) POC Glucose (mg/dL) 177 H 194 H (65-110) mg/dL Random Glucose (65-105) mg/dL Calcium (8.6-10.4) mg/dl Phosphorus (2.5-4.5) mg/dL Magnesium (1.6-2.3) mg/dL Total Bilirubin (0.2-1.3) mg/dL AST (14-36) U/L ALT (9-52) U/L Alkaline Phosphatase (38-126) U/L Total Protein (6.3-8.3) g/dL Albumin (3.5-5.0) g/dL Globulin (2.2-3.9) gm/dL Albumin/Globulin Ratio (1.0-2.1) Prealbumin (17.6-36.0) mg/dL Procalcitonin (0.19-0.49) NG/ML 06/12/30/17 12/30/17 Range/Units 17:11 13:29 11:55 WBC (4.8-10.8) K/uL RBC (3.80-5.20) Mil/uL Hgb (11.0-16.0) g/dL Hct (34.0-47.0) % MCV (81.0-99.0) fL MCH (27.0-31.0) pg MCHC (33.0-37.0) g/dL RDW (11.5-14.5) % Plt Count (130-400) K/uL MPV (7.2-11.7) fL Neut % (Auto) (50.0-75.0) % Lymph % (Auto) (20.0-40.0) % [place] % (Auto) (0.0-10.0) % Eos % (Auto) (0.0-4.0) % Baso % (Auto) (0.0-2.0) % Neut # (Auto) (1.8-7.0) K/uL Lymph # (Auto) (1.0-4.3) K/uL [place] # (Auto) (0.0-0.8) K/uL Eos # (Auto) (0.0-0.7) K/uL Baso # (Auto) (0.0-0.2) K/uL Puncture Site Lr pCO2 27 L (35-45) mm/Hg pO2 73 L (80-100) mm/Hg HCO3 23.3 (21-28) mmol/L ABG pH 7.49 H (7.35-7.45) ABG Total CO2 21.4 L (22-28) mmol/L ABG O2 Saturation 98.5 H (95-98) % ABG Base Excess -2.1 L (-2.0-3.0) mmol/L ABG Hemoglobin 8.4 L (11.7-17.4) g/dL ABG Carboxyhemoglobin 2.0 H (0.5-1.5) % POC ABG HHb (Measured) 1.5 (0.0-5.0) % ABG Methemoglobin 0.9 (0.0-3.0) % Richard Test Pos A-a O2 Difference 178.0 mm/Hg Respiratory Index 2.4 Hgb O2 Saturation 95.6 (95.0-98.0) % FiO2 40.0 % Sodium (132-148) mmol/L Potassium (3.6-5.2) mmol/L Chloride (98-107) mmol/L Carbon Dioxide (22-30) mmol/L Anion Gap (10-20) BUN (7-17) mg/dL Creatinine (0.7-1.2) mg/dL Est GFR ( Amer) Est GFR (Non-Af Amer) POC Glucose (mg/dL) 214 H (65-110) mg/dL Random Glucose (65-105) mg/dL Calcium (8.6-10.4) mg/dl Phosphorus (2.5-4.5) mg/dL Magnesium (1.6-2.3) mg/dL Total Bilirubin (0.2-1.3) mg/dL AST (14-36) U/L ALT (9-52) U/L Alkaline Phosphatase (38-126) U/L Total Protein (6.3-8.3) g/dL Albumin (3.5-5.0) g/dL Globulin (2.2-3.9) gm/dL Albumin/Globulin Ratio (1.0-2.1) Prealbumin 10.3 L (17.6-36.0) mg/dL Procalcitonin (0.19-0.49) NG/ML 12/30/17 12/30/17 Range/Units 11:53 06:23 WBC (4.8-10.8) K/uL RBC (3.80-5.20) Mil/uL Hgb (11.0-16.0) g/dL Hct (34.0-47.0) % MCV (81.0-99.0) fL MCH (27.0-31.0) pg MCHC (33.0-37.0) g/dL RDW (11.5-14.5) % Plt Count (130-400) K/uL MPV (7.2-11.7) fL Neut % (Auto) (50.0-75.0) % Lymph % (Auto) (20.0-40.0) % [place] % (Auto) (0.0-10.0) % Eos % (Auto) (0.0-4.0) % Baso % (Auto) (0.0-2.0) % Neut # (Auto) (1.8-7.0) K/uL Lymph # (Auto) (1.0-4.3) K/uL [place] # (Auto) (0.0-0.8) K/uL Eos # (Auto) (0.0-0.7) K/uL Baso # (Auto) (0.0-0.2) K/uL Puncture Site pCO2 (35-45) mm/Hg pO2 (80-100) mm/Hg HCO3 (21-28) mmol/L ABG pH (7.35-7.45) ABG Total CO2 (22-28) mmol/L ABG O2 Saturation (95-98) % ABG Base Excess (-2.0-3.0) mmol/L ABG Hemoglobin (11.7-17.4) g/dL ABG Carboxyhemoglobin (0.5-1.5) % POC ABG HHb (Measured) (0.0-5.0) % ABG Methemoglobin (0.0-3.0) % Richard Test A-a O2 Difference mm/Hg Respiratory Index Hgb O2 Saturation (95.0-98.0) % FiO2 % Sodium (132-148) mmol/L Potassium (3.6-5.2) mmol/L Chloride (98-107) mmol/L Carbon Dioxide (22-30) mmol/L Anion Gap (10-20) BUN (7-17) mg/dL Creatinine (0.7-1.2) mg/dL Est GFR ( Amer) Est GFR (Non-Af Amer) POC Glucose (mg/dL) 165 H (65-110) mg/dL Random Glucose (65-105) mg/dL Calcium (8.6-10.4) mg/dl Phosphorus (2.5-4.5) mg/dL Magnesium (1.6-2.3) mg/dL Total Bilirubin (0.2-1.3) mg/dL AST (14-36) U/L ALT (9-52) U/L Alkaline Phosphatase (38-126) U/L Total Protein (6.3-8.3) g/dL Albumin (3.5-5.0) g/dL Globulin (2.2-3.9) gm/dL Albumin/Globulin Ratio (1.0-2.1) Prealbumin (17.6-36.0) mg/dL Procalcitonin 3.01 H (0.19-0.49) NG/ML Laboratory Results - last 24 hr 12/30/17 12/30/17 12/30/17 06:23 11:53 11:55 WBC RBC Hgb Hct MCV MCH MCHC RDW Plt Count MPV Neut % (Auto) Lymph % (Auto) [place] % (Auto) Eos % (Auto) Baso % (Auto) Neut # (Auto) Lymph # (Auto) [place] # (Auto) Eos # (Auto) Baso # (Auto) Puncture Site Lr pCO2 27 L pO2 73 L HCO3 23.3 ABG pH 7.49 H ABG Total CO2 21.4 L ABG O2 Saturation 98.5 H ABG Base Excess -2.1 L ABG Hemoglobin 8.4 L ABG Carboxyhemoglobin 2.0 H POC ABG HHb (Measured) 1.5 ABG Methemoglobin 0.9 Richard Test Pos A-a O2 Difference 178.0 Respiratory Index 2.4 Hgb O2 Saturation 95.6 FiO2 40.0 Sodium Potassium Chloride Carbon Dioxide Anion Gap BUN Creatinine Est GFR ( Amer) Est GFR (Non-Af Amer) POC Glucose (mg/dL) 165 H Random Glucose Calcium Phosphorus Magnesium Total Bilirubin AST ALT Alkaline Phosphatase Total Protein Albumin Globulin Albumin/Globulin Ratio Prealbumin Procalcitonin 3.01 H 12/30/17 12/30/17 12/30/17 13:29 17:11 23:28 WBC RBC Hgb Hct MCV MCH MCHC RDW Plt Count MPV Neut % (Auto) Lymph % (Auto) [place] % (Auto) Eos % (Auto) Baso % (Auto) Neut # (Auto) Lymph # (Auto) [place] # (Auto) Eos # (Auto) Baso # (Auto) Puncture Site pCO2 pO2 HCO3 ABG pH ABG Total CO2 ABG O2 Saturation ABG Base Excess ABG Hemoglobin ABG Carboxyhemoglobin POC ABG HHb (Measured) ABG Methemoglobin Richard Test A-a O2 Difference Respiratory Index Hgb O2 Saturation FiO2 Sodium Potassium Chloride Carbon Dioxide Anion Gap BUN Creatinine Est GFR ( Amer) Est GFR (Non-Af Amer) POC Glucose (mg/dL) 214 H 194 H Random Glucose Calcium Phosphorus Magnesium Total Bilirubin AST ALT Alkaline Phosphatase Total Protein Albumin Globulin Albumin/Globulin Ratio Prealbumin 10.3 L Procalcitonin 12/31/17 12/31/17 12/31/17 00:22 05:17 06:02 WBC RBC Hgb Hct MCV MCH MCHC RDW Plt Count MPV Neut % (Auto) Lymph % (Auto) [place] % (Auto) Eos % (Auto) Baso % (Auto) Neut # (Auto) Lymph # (Auto) [place] # (Auto) Eos # (Auto) Baso # (Auto) Puncture Site Rr pCO2 29 L pO2 84 HCO3 19.8 L ABG pH 7.39 ABG Total CO2 18.5 L ABG O2 Saturation 99.2 H ABG Base Excess -6.6 L ABG Hemoglobin 7.9 L ABG Carboxyhemoglobin 2.1 H POC ABG HHb (Measured) 0.8 ABG Methemoglobin 1.0 Richard Test Pos A-a O2 Difference 165.0 Respiratory Index 2.0 Hgb O2 Saturation 96.1 FiO2 40.0 Sodium Potassium Chloride Carbon Dioxide Anion Gap BUN Creatinine Est GFR ( Amer) Est GFR (Non-Af Amer) POC Glucose (mg/dL) 177 H 202 H Random Glucose Calcium Phosphorus Magnesium Total Bilirubin AST ALT Alkaline Phosphatase Total Protein Albumin Globulin Albumin/Globulin Ratio Prealbumin Procalcitonin 12/31/17 12/31/17 06:20 06:32 WBC 12.3 H RBC 2.78 L Hgb 7.8 L Hct 23.7 L MCV 85.1 MCH 27.9 MCHC 32.8 L RDW 14.7 H Plt Count 174 MPV 9.6 Neut % (Auto) 76.0 H Lymph % (Auto) 11.9 L [place] % (Auto) 9.2 Eos % (Auto) 2.1 Baso % (Auto) 0.8 Neut # (Auto) 9.3 H Lymph # (Auto) 1.5 [place] # (Auto) 1.1 H Eos # (Auto) 0.3 Baso # (Auto) 0.1 Puncture Site pCO2 pO2 HCO3 ABG pH ABG Total CO2 ABG O2 Saturation ABG Base Excess ABG Hemoglobin ABG Carboxyhemoglobin POC ABG HHb (Measured) ABG Methemoglobin Richard Test A-a O2 Difference Respiratory Index Hgb O2 Saturation FiO2 Sodium 140 Potassium 3.7 Chloride 104 Carbon Dioxide 20 L Anion Gap 20 BUN 67 H Creatinine 5.5 H Est GFR ( Amer) 9 Est GFR (Non-Af Amer) 7 POC Glucose (mg/dL) Random Glucose 192 H Calcium 7.7 L Phosphorus 6.4 H Magnesium 2.0 Total Bilirubin 0.8 AST 37 H D ALT 23 Alkaline Phosphatase 88 Total Protein 6.3 Albumin 2.8 L Globulin 3.5 Albumin/Globulin Ratio 0.8 L Prealbumin Procalcitonin Fingerstick Blood Sugar Results: 202 Critical Care Progress Note - Nutrition Nutrition: Nutrition Category Date Time Status NPO Diet [DIET] Diets 12/20/17 Dinner Active Assessment/Plan - Assessment and Plan (Free Text) Assessment: This is a 77yo female with history of hypertension, COPD, breast cancer s/p lumpectomy that presented to same day 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 During the procedure, patient experienced a significant amount of bleeding which was treated with a combination of clipping , electrocautery and epinephrine. Bleeding was significantly reduced however patient was subsequently admitted to ICU for close observation. Patient was admitted to ICU due to SBP 220/140s initially on cardene drip x 1 - 2 hours Returned to OR 12/18/17 due to increasing free air noted on repeat CT scan ; s/p ex lap primary repair of duodenal perforation, jourdan patch. Omentectomy. Picc line placed 12/20/17 Right shiley catheter placed - 12/20 - removed 12/24. Permacath placed 12/25 12/25 bedside I & D of abdominal wall abscess, wound cultures sent - tanvi - patient has been on micafungin 12/21 12/27- Ongoing duodenal leak s/p EGD with OTSC x 2 12/29 - patient was extubated Total 4 units PRBCs transfused throughout admission Plan: Neuro: - Extubated 12/30 on NR - On Precedex for pain and agitation Cardio: A: Hypertension - Initially was on Cardene Drip; currently not on any antihypertensives Pulm: - Extubated 12/30 on NR A: COPD - Duonebs Q4 FESTUS GI: A: Duodenal perforation s/p surgical repair 12/18 - No further surgical intervention - [address], actively draining - Started Octreotide SC 12/27/17 - Ongoing duodenal leak s/p EGD with OTSC x 2 - 12/27 - 100cc expressed from abdominal surgical site - surgical team to place wound vac - Plan for EGD with duodenal stent placement 01/[address] 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 Alatorre - Previous hemorrhage - stabilized with a combination of clipping, electrocautery and epinephrine - PPI Q12 - Ct chest, abdomen, pelvis 2/2 abdominal pain and guarding on exam: Mild increase in the extent of pneumoperitoneum. Increasing ascites. Extensive gas adjacent to 2nd duodenum and nasim hepatis. Status post cholecystectomy. Nasogastric tube. Fluid in retroperitoneum and gas in perinephric space on right side. Cannot rule out pancreatitis. Please correlate. Trace right pleural effusion. No pulmonary infiltrate. - Upper GI series - Free air noted - As per surgery patient is for OR due to increasing free air ; s/p ex lap primary repair of duodenal perforation, jourdan patch. Omentectomy. 12/18 - Repeat CT Scan with PO contrast: Demonstration of duodenal perforation at the time of this examination with oral contrast administered prior to the examination seen extrinsic to the duodenum, in the right pericolic gutter extending down to the level of the right ileo psoas. There is questionable low- density collection in the inferior extent of the right rectus sheath though there is no oral contrast seen in this location. The surgical drain currently in place traverses the major portion of the extrinsic intraperitoneal/ retroperitoneal contrast collection. A: Pancreatitis? - Noted on CT C/ab/pel: Limited study. There are linear atelectatic and or scarring changes seen in the right and left upper lobes as well as the left lower lobe. Cholecystectomy with in situ drainage catheter. Findings are consistent with acute pancreatitis with peripancreatic infiltration and small amount of fluid extending into the right para renal space. - Lipase- elevated A: Pancreatic nodule - Questionable 9 mm rounded fluid density mass in the pancreatic body. This was not clearly appreciated on prior CT examination of 12/16/2017. Further evaluation is advised when clinically feasible with multiphasic contrast- enhanced CT. A: Transaminitis, Elevated T. Bili - RESOLVED - Viral hepatitis - negative - Abominal US - Diffuse increased echogenicity in the liver may reflect hepatic steatosis however parenchymal infectious/ inflammatory etiologies cannot be entirely excluded. Clinical and laboratory correlation is advised. Mild perihepatic ascites. Endo: A: Thyroid Nodule - There is a 1.9 cm mass in the lower pole of the left thyroid lobe. - Correlate with thyroid ultrasound examination. A: Hypocalcemia - Repleting A: IGT - HgA1c 5.9 Renal: A: ARF - Improving with HD - 2/2 ATN - MWF schedule - Avoid nephrotoxic drugs - Abdominal US- no sign of renal obstruction - Inserted bruce - Right Shiley catheter inserted 12/20- removed 12/24 - Permacath placed 12/25/17 ID: A: SIRS, Bandemia - resolving ID Consulted - Dr. Quinonez - Afebrile, vitals stable, no leukocytosis, no source of infection - Patient was prince-cultured- all negative - Right dialysis catheter removed 12/24 - culture negative to date - Wound culture - Tanvi - Meropenem renally dosed started 12/18/17, Micafungin 100mg Q12 started 12/21, started Amikacin 750mg Q48H and Daptomycin 600mg Q48H - 12/26 A: Abdominal wall abscess - S/P I&D 12/25/17 - Wound culture - Tanvi - Micafungin 100mg Q12 started 12/21 A: Diarrhea - Resolved - Likely 2/2 to abx - Diff- negative, probiotic started Heme/ Onc: A: Anemia - Hemoglobin baseline -14 - CT chest, ab, pelvis - no evidence of internal hemorrhage - S/P 1 unit 12/20, 2nd unit transfused 12/25, 3rd unit transfused 12/25, 4th unit 12/31 - Continue to monitor A: Hx breast cancer s/p lumpectomy Prophylaxis - PPI Q12 - SCDs, VTE c/i post op / concern for bleeding - Right PICC line 12/20, Right shiley cath inserted 12/20 - REMOVED 12/24, R Permacath placed 12/25 - Currently on TPN Disposition: Plan for EGD with duodenal stent placement 01/[address] Flynn. DW Estefania Schwartz DO, PGY-1 <Delgado Shelton S - Last Filed: 12/31/17 17:56> CCU Objective - Vital Signs / Intake & Output Vital Signs (Last 4 hours): Vital Signs Temp Pulse Resp BP Pulse Ox 12/31/17 17:00 89 31 H 99 12/31/17 16:19 86 26 H 107/35 L 100 12/31/17 16:00 99.3 F 12/31/17 15:33 87 24 96/31 L 100 12/31/17 15:19 90 33 H 90/39 L 98 12/31/17 14:34 88 27 H 93/33 L 100 12/31/17 14:18 89 29 H 102/41 L 99 12/31/17 13:58 99.5 F 87 28 H 92/40 L Intake and Output (Last 8hrs): Intake & Output 12/31/17 12/31/17 12/31/17 06:59 14:59 22:59 Intake Total 397.0 829.0 134.4 Output Total 374 160 Balance 23.0 669.0 134.4 Weight 242 lb 7.421 oz Intake: IV 17 50 Intake, IV Amount 380.0 454.0 134.4 Right Distal Port PICC 200 Right PICC 44.0 44.0 8.4 right picc 2nd port 336 210 126 Blood Product 325 Red Blood Cells Cpd As1 325 Lr Unit [id number] Output: Drainage 374 160 KORI 1 360 120 KORI 2 14 40 Other: # Bowel Movements 1 - Medications Active Medications: Active Medications Generic Name Dose Route Start Last Admin Trade Name Freq PRN Reason Stop Dose Admin Acetaminophen 650 mg 12/28/17 10:14 12/31/17 08:38 Tylenol 650 Mg Supp NE 650 mg Q6 PRN Administration Fever >100.4 F Albumin Human 25 gm 12/27/17 14:37 12/30/17 11:22 Albumin Human 25% (12.5 Gm/50 Ml) IV 25 gm MWF PRN Administration Other Albuterol/Ipratropium 3 ml 12/28/17 12:00 12/31/17 16:42 Duoneb 3 Mg/0.5 Mg (3 Ml) Ud INH 3 ml RQ4 FESTUS Administration Dextrose 0 ml 12/16/17 12:08 Dextrose 50% Inj IV STAT PRN Hypoglycemia Protocol Protocol Dextrose 15 gm 12/16/17 12:08 Glutose 15 PO ONCE PRN Hypoglycemia Protocol Protocol Epoetin Juan F 10,000 unit 01/01/18 09:00 Procrit IV MWF FESTUS Glucagon 1 mg 12/16/17 12:08 Glucagen Diagnostic Kit IM STAT PRN Hypoglycemia Protocol Protocol Heparin Sodium (Porcine) 3,700 units 12/25/17 16:46 12/30/17 12:16 Heparin IVP 3,700 units MWF FESTUS Administration Dextrose 1,000 mls @ 0 mls/hr 12/16/17 12:08 Dextrose 5% In Water 1000 Ml IV .Q0M PRN Hypoglycemia Protocol Protocol Per Protocol Meropenem 500 mg/ Sodium 100 mls @ 100 mls/hr 12/18/17 10:00 12/31/17 09:32 Chloride IVPB 100 mls/hr Q12 FESTUS Administration Protocol Micafungin Sodium 100 mg/ 100 mls @ 100 mls/hr 12/21/17 10:00 12/31/17 09:32 Sodium Chloride IV 100 mls/hr Q24H FESTUS Administration Protocol Daptomycin 600 mg/ Sodium 100 mls @ 100 mls/hr 12/30/17 19:30 12/30/17 18:51 Chloride IV 01/04/18 19:31 100 mls/hr Q48H FESTUS Administration Protocol Amikacin Sulfate 750 mg/ 253 mls @ 250 mls/hr 12/30/17 20:30 12/30/17 19:59 Dextrose IVPB 250 mls/hr Q48H FESTUS Administration Protocol Dexmedetomidine HCl 200 mcg/ 50 mls @ 5.52 mls/hr 12/30/17 10:03 12/31/17 09: 34 Sodium Chloride IV 0.2 mcg/kg/hr TITR PRN 5.52 mls/hr Agitation Administration Protocol 0.2 MCG/KG/HR Sodium Chloride 35 meq/ 1,030.1663 mls @ 42 mls/hr 12/30/17 18:00 12/30/17 17 :30 Magnesium Sulfate 3 meq/ IV 12/31/17 17:59 42 mls/hr Calcium Gluconate 4.5 meq/ .Q24H ONE Administration Heparin Sodium (Porcine) 1,000 units/ Multivitamins/Vitamin C 10 ml/ Amino Acids Sodium Chloride 35 meq/ 1,030.1663 mls @ 42 mls/hr 12/31/17 18:00 12/31/17 17 :30 Magnesium Sulfate 3 meq/ IV 01/01/18 17:59 42 mls/hr Calcium Gluconate 4.5 meq/ .Q24H ONE Administration Heparin Sodium (Porcine) 1,000 units/ Multivitamins/Vitamin C 10 ml/ Amino Acids Insulin Human Regular 0 unit 12/19/17 00:00 12/31/17 11:52 Novolin R SC Not Given Q6 [facility] Protocol Octreotide Acetate 300 mcg 12/30/17 14:00 12/31/17 17:34 Sandostatin SC 300 mcg TID FESTUS Administration Pantoprazole Sodium 40 mg 12/23/17 22:00 12/31/17 09:32 Protonix Inj IVP 40 mg Q12H FESTUS Administration - Patient Studies Lab Studies: Microbiology Studies 12/31/17 08:22 Gram Stain - Final Abdomen Lab Studies 12/31/17 12/31/17 12/31/17 Range/Units 15:34 15:34 11:39 WBC (4.8-10.8) K/uL RBC (3.80-5.20) Mil/uL Hgb (11.0-16.0) g/dL Hct (34.0-47.0) % MCV (81.0-99.0) fL MCH (27.0-31.0) pg MCHC (33.0-37.0) g/dL RDW (11.5-14.5) % Plt Count (130-400) K/uL MPV (7.2-11.7) fL Neut % (Auto) (50.0-75.0) % Lymph % (Auto) (20.0-40.0) % [place] % (Auto) (0.0-10.0) % Eos % (Auto) (0.0-4.0) % Baso % (Auto) (0.0-2.0) % Neut # (Auto) (1.8-7.0) K/uL Lymph # (Auto) (1.0-4.3) K/uL [place] # (Auto) (0.0-0.8) K/uL Eos # (Auto) (0.0-0.7) K/uL Baso # (Auto) (0.0-0.2) K/uL Puncture Site pCO2 (35-45) mm/Hg pO2 (80-100) mm/Hg HCO3 (21-28) mmol/L ABG pH (7.35-7.45) ABG Total CO2 (22-28) mmol/L ABG O2 Saturation (95-98) % ABG Base Excess (-2.0-3.0) mmol/L ABG Hemoglobin (11.7-17.4) g/dL ABG Carboxyhemoglobin (0.5-1.5) % POC ABG HHb (Measured) (0.0-5.0) % ABG Methemoglobin (0.0-3.0) % Richard Test A-a O2 Difference mm/Hg Respiratory Index Hgb O2 Saturation (95.0-98.0) % FiO2 % Sodium 140 (132-148) mmol/L Potassium 4.0 (3.6-5.2) mmol/L Chloride 105 (98-107) mmol/L Carbon Dioxide 19 L (22-30) mmol/L Anion Gap 19 (10-20) BUN 71 H (7-17) mg/dL Creatinine (0.7-1.2) mg/dL Est GFR ( Amer) Est GFR (Non-Af Amer) POC Glucose (mg/dL) 148 H (65-110) mg/dL Random Glucose 169 H (65-105) mg/dL Calcium 7.9 L (8.6-10.4) mg/dl Phosphorus (2.5-4.5) mg/dL Magnesium (1.6-2.3) mg/dL Total Bilirubin (0.2-1.3) mg/dL AST (14-36) U/L ALT (9-52) U/L Alkaline Phosphatase (38-126) U/L Total Protein (6.3-8.3) g/dL Albumin (3.5-5.0) g/dL Globulin (2.2-3.9) gm/dL Albumin/Globulin Ratio (1.0-2.1) Blood Type O POSITIVE Antibody Screen Negative 12/31/17 12/31/17 12/31/17 Range/Units 06:32 06:20 06:02 WBC 12.3 H (4.8-10.8) K/uL RBC 2.78 L (3.80-5.20) Mil/uL Hgb 7.8 L (11.0-16.0) g/dL Hct 23.7 L (34.0-47.0) % MCV 85.1 (81.0-99.0) fL MCH 27.9 (27.0-31.0) pg MCHC 32.8 L (33.0-37.0) g/dL RDW 14.7 H (11.5-14.5) % Plt Count 174 (130-400) K/uL MPV 9.6 (7.2-11.7) fL Neut % (Auto) 76.0 H (50.0-75.0) % Lymph % (Auto) 11.9 L (20.0-40.0) % [place] % (Auto) 9.2 (0.0-10.0) % Eos % (Auto) 2.1 (0.0-4.0) % Baso % (Auto) 0.8 (0.0-2.0) % Neut # (Auto) 9.3 H (1.8-7.0) K/uL Lymph # (Auto) 1.5 (1.0-4.3) K/uL [place] # (Auto) 1.1 H (0.0-0.8) K/uL Eos # (Auto) 0.3 (0.0-0.7) K/uL Baso # (Auto) 0.1 (0.0-0.2) K/uL Puncture Site pCO2 (35-45) mm/Hg pO2 (80-100) mm/Hg HCO3 (21-28) mmol/L ABG pH (7.35-7.45) ABG Total CO2 (22-28) mmol/L ABG O2 Saturation (95-98) % ABG Base Excess (-2.0-3.0) mmol/L ABG Hemoglobin (11.7-17.4) g/dL ABG Carboxyhemoglobin (0.5-1.5) % POC ABG HHb (Measured) (0.0-5.0) % ABG Methemoglobin (0.0-3.0) % Richard Test A-a O2 Difference mm/Hg Respiratory Index Hgb O2 Saturation (95.0-98.0) % FiO2 % Sodium 140 (132-148) mmol/L Potassium 3.7 (3.6-5.2) mmol/L Chloride 104 (98-107) mmol/L Carbon Dioxide 20 L (22-30) mmol/L Anion Gap 20 (10-20) BUN 67 H (7-17) mg/dL Creatinine 5.5 H (0.7-1.2) mg/dL Est GFR ( Amer) 9 Est GFR (Non-Af Amer) 7 POC Glucose (mg/dL) 202 H (65-110) mg/dL Random Glucose 192 H (65-105) mg/dL Calcium 7.7 L (8.6-10.4) mg/dl Phosphorus 6.4 H (2.5-4.5) mg/dL Magnesium 2.0 (1.6-2.3) mg/dL Total Bilirubin 0.8 (0.2-1.3) mg/dL AST 37 H D (14-36) U/L ALT 23 (9-52) U/L Alkaline Phosphatase 88 (38-126) U/L Total Protein 6.3 (6.3-8.3) g/dL Albumin 2.8 L (3.5-5.0) g/dL Globulin 3.5 (2.2-3.9) gm/dL Albumin/Globulin Ratio 0.8 L (1.0-2.1) Blood Type Antibody Screen 12/31/17 12/31/17 12/30/17 Range/Units 05:17 00:22 23:28 WBC (4.8-10.8) K/uL RBC (3.80-5.20) Mil/uL Hgb (11.0-16.0) g/dL Hct (34.0-47.0) % MCV (81.0-99.0) fL MCH (27.0-31.0) pg MCHC (33.0-37.0) g/dL RDW (11.5-14.5) % Plt Count (130-400) K/uL MPV (7.2-11.7) fL Neut % (Auto) (50.0-75.0) % Lymph % (Auto) (20.0-40.0) % [place] % (Auto) (0.0-10.0) % Eos % (Auto) (0.0-4.0) % Baso % (Auto) (0.0-2.0) % Neut # (Auto) (1.8-7.0) K/uL Lymph # (Auto) (1.0-4.3) K/uL [place] # (Auto) (0.0-0.8) K/uL Eos # (Auto) (0.0-0.7) K/uL Baso # (Auto) (0.0-0.2) K/uL Puncture Site Rr pCO2 29 L (35-45) mm/Hg pO2 84 (80-100) mm/Hg HCO3 19.8 L (21-28) mmol/L ABG pH 7.39 (7.35-7.45) ABG Total CO2 18.5 L (22-28) mmol/L ABG O2 Saturation 99.2 H (95-98) % ABG Base Excess -6.6 L (-2.0-3.0) mmol/L ABG Hemoglobin 7.9 L (11.7-17.4) g/dL ABG Carboxyhemoglobin 2.1 H (0.5-1.5) % POC ABG HHb (Measured) 0.8 (0.0-5.0) % ABG Methemoglobin 1.0 (0.0-3.0) % Richard Test Pos A-a O2 Difference 165.0 mm/Hg Respiratory Index 2.0 Hgb O2 Saturation 96.1 (95.0-98.0) % FiO2 40.0 % Sodium (132-148) mmol/L Potassium (3.6-5.2) mmol/L Chloride (98-107) mmol/L Carbon Dioxide (22-30) mmol/L Anion Gap (10-20) BUN (7-17) mg/dL Creatinine (0.7-1.2) mg/dL Est GFR ( Amer) Est GFR (Non-Af Amer) POC Glucose (mg/dL) 177 H 194 H (65-110) mg/dL Random Glucose (65-105) mg/dL Calcium (8.6-10.4) mg/dl Phosphorus (2.5-4.5) mg/dL Magnesium (1.6-2.3) mg/dL Total Bilirubin (0.2-1.3) mg/dL AST (14-36) U/L ALT (9-52) U/L Alkaline Phosphatase (38-126) U/L Total Protein (6.3-8.3) g/dL Albumin (3.5-5.0) g/dL Globulin (2.2-3.9) gm/dL Albumin/Globulin Ratio (1.0-2.1) Blood Type Antibody Screen 12/28/17 Range/Units 12:13 WBC (4.8-10.8) K/uL RBC (3.80-5.20) Mil/uL Hgb (11.0-16.0) g/dL Hct (34.0-47.0) % MCV (81.0-99.0) fL MCH (27.0-31.0) pg MCHC (33.0-37.0) g/dL RDW (11.5-14.5) % Plt Count (130-400) K/uL MPV (7.2-11.7) fL Neut % (Auto) (50.0-75.0) % Lymph % (Auto) (20.0-40.0) % [place] % (Auto) (0.0-10.0) % Eos % (Auto) (0.0-4.0) % Baso % (Auto) (0.0-2.0) % Neut # (Auto) (1.8-7.0) K/uL Lymph # (Auto) (1.0-4.3) K/uL [place] # (Auto) (0.0-0.8) K/uL Eos # (Auto) (0.0-0.7) K/uL Baso # (Auto) (0.0-0.2) K/uL Puncture Site pCO2 (35-45) mm/Hg pO2 (80-100) mm/Hg HCO3 (21-28) mmol/L ABG pH (7.35-7.45) ABG Total CO2 (22-28) mmol/L ABG O2 Saturation (95-98) % ABG Base Excess (-2.0-3.0) mmol/L ABG Hemoglobin (11.7-17.4) g/dL ABG Carboxyhemoglobin (0.5-1.5) % POC ABG HHb (Measured) (0.0-5.0) % ABG Methemoglobin (0.0-3.0) % Richard Test A-a O2 Difference mm/Hg Respiratory Index Hgb O2 Saturation (95.0-98.0) % FiO2 % Sodium (132-148) mmol/L Potassium (3.6-5.2) mmol/L Chloride (98-107) mmol/L Carbon Dioxide (22-30) mmol/L Anion Gap (10-20) BUN (7-17) mg/dL Creatinine (0.7-1.2) mg/dL Est GFR ( Amer) Est GFR (Non-Af Amer) POC Glucose (mg/dL) (65-110) mg/dL Random Glucose (65-105) mg/dL Calcium (8.6-10.4) mg/dl Phosphorus (2.5-4.5) mg/dL Magnesium (1.6-2.3) mg/dL Total Bilirubin (0.2-1.3) mg/dL AST (14-36) U/L ALT (9-52) U/L Alkaline Phosphatase (38-126) U/L Total Protein (6.3-8.3) g/dL Albumin (3.5-5.0) g/dL Globulin (2.2-3.9) gm/dL Albumin/Globulin Ratio (1.0-2.1) Blood Type O POSITIVE Antibody Screen Negative Laboratory Results - last 24 hr 12/28/17 12/30/17 12/31/17 12:13 23:28 00:22 WBC RBC Hgb Hct MCV MCH MCHC RDW Plt Count MPV Neut % (Auto) Lymph % (Auto) [place] % (Auto) Eos % (Auto) Baso % (Auto) Neut # (Auto) Lymph # (Auto) [place] # (Auto) Eos # (Auto) Baso # (Auto) Puncture Site pCO2 pO2 HCO3 ABG pH ABG Total CO2 ABG O2 Saturation ABG Base Excess ABG Hemoglobin ABG Carboxyhemoglobin POC ABG HHb (Measured) ABG Methemoglobin Richard Test A-a O2 Difference Respiratory Index Hgb O2 Saturation FiO2 Sodium Potassium Chloride Carbon Dioxide Anion Gap BUN Creatinine Est GFR ( Amer) Est GFR (Non-Af Amer) POC Glucose (mg/dL) 194 H 177 H Random Glucose Calcium Phosphorus Magnesium Total Bilirubin AST ALT Alkaline Phosphatase Total Protein Albumin Globulin Albumin/Globulin Ratio Blood Type O POSITIVE Antibody Screen Negative 12/31/17 12/31/17 12/31/17 05:17 06:02 06:20 WBC RBC Hgb Hct MCV MCH MCHC RDW Plt Count MPV Neut % (Auto) Lymph % (Auto) [place] % (Auto) Eos % (Auto) Baso % (Auto) Neut # (Auto) Lymph # (Auto) [place] # (Auto) Eos # (Auto) Baso # (Auto) Puncture Site Rr pCO2 29 L pO2 84 HCO3 19.8 L ABG pH 7.39 ABG Total CO2 18.5 L ABG O2 Saturation 99.2 H ABG Base Excess -6.6 L ABG Hemoglobin 7.9 L ABG Carboxyhemoglobin 2.1 H POC ABG HHb (Measured) 0.8 ABG Methemoglobin 1.0 Richard Test Pos A-a O2 Difference 165.0 Respiratory Index 2.0 Hgb O2 Saturation 96.1 FiO2 40.0 Sodium 140 Potassium 3.7 Chloride 104 Carbon Dioxide 20 L Anion Gap 20 BUN 67 H Creatinine 5.5 H Est GFR ( Amer) 9 Est GFR (Non-Af Amer) 7 POC Glucose (mg/dL) 202 H Random Glucose 192 H Calcium 7.7 L Phosphorus 6.4 H Magnesium 2.0 Total Bilirubin 0.8 AST 37 H D ALT 23 Alkaline Phosphatase 88 Total Protein 6.3 Albumin 2.8 L Globulin 3.5 Albumin/Globulin Ratio 0.8 L Blood Type Antibody Screen 12/31/17 12/31/17 12/31/17 06:32 11:39 15:34 WBC 12.3 H RBC 2.78 L Hgb 7.8 L Hct 23.7 L MCV 85.1 MCH 27.9 MCHC 32.8 L RDW 14.7 H Plt Count 174 MPV 9.6 Neut % (Auto) 76.0 H Lymph % (Auto) 11.9 L [place] % (Auto) 9.2 Eos % (Auto) 2.1 Baso % (Auto) 0.8 Neut # (Auto) 9.3 H Lymph # (Auto) 1.5 [place] # (Auto) 1.1 H Eos # (Auto) 0.3 Baso # (Auto) 0.1 Puncture Site pCO2 pO2 HCO3 ABG pH ABG Total CO2 ABG O2 Saturation ABG Base Excess ABG Hemoglobin ABG Carboxyhemoglobin POC ABG HHb (Measured) ABG Methemoglobin Richard Test A-a O2 Difference Respiratory Index Hgb O2 Saturation FiO2 Sodium 140 Potassium 4.0 Chloride 105 Carbon Dioxide 19 L Anion Gap 19 BUN 71 H Creatinine Est GFR ( Amer) Est GFR (Non-Af Amer) POC Glucose (mg/dL) 148 H Random Glucose 169 H Calcium 7.9 L Phosphorus Magnesium Total Bilirubin AST ALT Alkaline Phosphatase Total Protein Albumin Globulin Albumin/Globulin Ratio Blood Type Antibody Screen 12/31/17 15:34 WBC RBC Hgb Hct MCV MCH MCHC RDW Plt Count MPV Neut % (Auto) Lymph % (Auto) [place] % (Auto) Eos % (Auto) Baso % (Auto) Neut # (Auto) Lymph # (Auto) [place] # (Auto) Eos # (Auto) Baso # (Auto) Puncture Site pCO2 pO2 HCO3 ABG pH ABG Total CO2 ABG O2 Saturation ABG Base Excess ABG Hemoglobin ABG Carboxyhemoglobin POC ABG HHb (Measured) ABG Methemoglobin Richard Test A-a O2 Difference Respiratory Index Hgb O2 Saturation FiO2 Sodium Potassium Chloride Carbon Dioxide Anion Gap BUN Creatinine Est GFR ( Amer) Est GFR (Non-Af Amer) POC Glucose (mg/dL) Random Glucose Calcium Phosphorus Magnesium Total Bilirubin AST ALT Alkaline Phosphatase Total Protein Albumin Globulin Albumin/Globulin Ratio Blood Type O POSITIVE Antibody Screen Negative Critical Care Progress Note - Nutrition Nutrition: Nutrition Category Date Time Status NPO Diet [DIET] Diets 12/20/17 Dinner Active Attending/Attestation - Attestation I have personally seen and examined this patient.: Yes I have fully participated in the care of the patient.: Yes I have reviewed all pertinent clinical information: Yes Notes (Text): 12/31/17 17:49 patient seen and examined in the intensive care unit. Case discussed with house staff in the morning rounds. 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 During procedure significant amount of bleeding which was treated with a combination of clipping, electrocautery and epinephrine. Patient was admitted to ICU due to SBP 220/140s initially on cardene drip and later discontinued Returned to OR 12/18/17 due to increasing free air noted on repeat CT scan ; s/p ex lap primary repair of duodenal perforation, jourdan patch. Omentectomy. Right shiley catheter placed - 12/20 - removed 12/24 for elevated white count N permacath placed 12/25 bedside I & D of abdominal wall abscess, wound cultures sent - tanvi - patient has been on micafungin 12/21 12/27- Ongoing duodenal leak s/p EGD with OTSC x 2 patient was extubated on Saturday and thus placed on nonrebreather mask Patient response to vocal command low Grade fever seen by surgery and wound VAC applied, increase drainage of bile noted from the KORI Case discussed with surgery Plan for duodenal stent tomorrow by GI continue IV antibiotics by infectious disease Continue to monitor in ICU Follow-up culture and sensitivity Continue TPN
--- NOTE | 2017-12-31 11:19 | CP.PCM.PN ---
Subjective - Date & Time of Evaluation Date of Evaluation: 12/31/17 Time of Evaluation: 09:15 - Subjective Subjective: This morning when I came and saw patient, she was arousable and able to open her eyes. However her speech is unintelligiable at this moment. This being said, the overall prognosis remains poor There is still a lot of drainage from the two KORI drains, I was informed she maybe getting a wound vaccume placement tommorow. Objective - Vital Signs/Intake and Output Vital Signs (last 24 hours): Temp Pulse Resp BP Pulse Ox 98.2 F 86 20 88/37 L 100 12/31/17 11:00 12/31/17 11:00 12/31/17 11:00 12/31/17 11:00 12/31/17 10:07 Intake and Output: 12/31/17 12/31/17 06:59 18:59 Intake Total 1389.5 145.0 Output Total 588 120 Balance 801.5 25.0 - Medications Medications: Current Medications Acetaminophen (Tylenol 650 Mg Supp) 650 mg CO Q6 PRN PRN Reason: Fever >100.4 F Last Admin: 12/31/17 08:38 Dose: 650 mg Albumin Human (Albumin Human 25% (12.5 Gm/50 Ml)) 25 gm IV [facility] PRN PRN Reason: Other Last Admin: 12/30/17 11:22 Dose: 25 gm Albuterol/Ipratropium (Duoneb 3 Mg/0.5 Mg (3 Ml) Ud) 3 ml INH 4 [facility] Last Admin: 12/31/17 07:15 Dose: 3 ml Dextrose (Dextrose 50% Inj) 0 ml IV STAT PRN; Protocol PRN Reason: Hypoglycemia Protocol Dextrose (Glutose 15) 15 gm PO ONCE PRN; Protocol PRN Reason: Hypoglycemia Protocol Epoetin Juan F (Procrit) 10,000 unit IV [facility] Glucagon (Glucagen Diagnostic Kit) 1 mg IM STAT PRN; Protocol PRN Reason: Hypoglycemia Protocol Heparin Sodium (Porcine) (Heparin) 3,700 units IVP [facility] Last Admin: 12/30/17 12:16 Dose: 3,700 units Dextrose (Dextrose 5% In Water 1000 Ml) 1,000 mls @ 0 mls/hr IV .Q0M PRN; Protocol; Per Protocol PRN Reason: Hypoglycemia Protocol Meropenem 500 mg/ Sodium (Chloride) 100 mls @ 100 mls/hr IVPB Q12 [facility]US PRN Reason: Protocol Last Admin: 12/31/17 09:32 Dose: 100 mls/hr Micafungin Sodium 100 mg/ (Sodium Chloride) 100 mls @ 100 mls/hr IV Q24H [facility]STUS PRN Reason: Protocol Last Admin: 12/31/17 09:32 Dose: 100 mls/hr Daptomycin 600 mg/ Sodium (Chloride) 100 mls @ 100 mls/hr IV Q48H [facility]STUS PRN Reason: Protocol Stop: 01/04/18 19:31 Last Admin: 12/30/17 18:51 Dose: 100 mls/hr Amikacin Sulfate 750 mg/ (Dextrose) 253 mls @ 250 mls/hr IVPB Q48H [facility]STUS PRN Reason: Protocol Last Admin: 12/30/17 19:59 Dose: 250 mls/hr Dexmedetomidine HCl 200 mcg/ (Sodium Chloride) 50 mls @ 5.52 mls/hr IV TITR PRN ; Protocol; 0.2 MCG/KG/HR PRN Reason: Agitation Last Admin: 12/31/17 09:34 Dose: 0.2 mcg/kg/hr, 5.52 mls/hr Sodium Chloride 35 meq/Magnesium Sulfate 3 meq/Calcium Gluconate 4.5 meq/ Heparin Sodium (Porcine) 1,000 units/ Multivitamins/Vitamin C 10 ml/ Amino Acids 1,030.1663 mls @ 42 mls/hr IV .Q24H ONE Stop: 12/31/17 17:59 Last Admin: 12/30/17 17:30 Dose: 42 mls/hr Insulin Human Regular (Novolin R) 0 unit SC Q6 [facility]STUS PRN Reason: Protocol Last Admin: 12/31/17 06:05 Dose: 2 unit Octreotide Acetate (Sandostatin) 300 mcg SC TID FESTUS Last Admin: 12/31/17 10:34 Dose: 300 mcg Pantoprazole Sodium (Protonix Inj) 40 mg IVP Q12H FESTUS Last Admin: 12/31/17 09:32 Dose: 40 mg - Labs Labs: 12/31/17 06:32 12/31/17 06:20 PT 14.0 SECONDS (9.7-12.2) H 12/24/17 08:54 INR 1.3 12/24/17 08:54 APTT 40 SECONDS (21-34) H 12/18/17 12:39 - Constitutional Appears: Toxic, Confused, Chronically Ill - Head Exam Head Exam: absent: NORMAL INSPECTION, NORMOCEPHALIC - ENT Exam ENT Exam: Mucous Membranes Moist - Respiratory Exam Respiratory Exam: Decreased Breath Sounds - Cardiovascular Exam Cardiovascular Exam: REGULAR RHYTHM - Neurological Exam Neurological Exam: Alert, Altered, Awake. 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 she also had HTN crisis which was treated with cardene drip. Patient was admitted to ICU Returned to OR on 12/18/17 due to increasing free air noted on repeat CT scan and underwent s/p ex lap primary repair of duodenal perforation, jourdan patch. Omentectomy. Patient developed acute renal failure /ATN likely due to hydrodynamic injury leading to ATN Right shiley catheter placed - 12/20 - removed 12/24. Dialysis 12/20 and 12/21. Permacath placed 12/25. Dialysis 12/25 and 1 unit PRBC transfused. Patient was having fever spikes with negative cultures CT with oral contrast done on 12/27 showed duodenal perforation/leak. Patient had Endoscopic closure using clips by Dr Flynn on 12/27/2017 Plan: 1. Sepsis/bile peritonitis/duodenal perforation and leak 12/31: This morning abscess was drained, also both KORI drains continue to have high outputs. There was 1,400 and 1,100. Possible wound vacum 12/30: Both drains show a lot of drainage at this time 770 and 710. Cultures from 12/25 showing tanvi albican growth at that time. Abx at this time are Daptomycin, Amikacin, and Gentamicin. Also on Micafungin for the Tanvi albicans. Patient had endoscopic resection of duodenal carcinoid tumor on 12/16/2017 Ct reported intraperitoneal air and patient underwent Exploratory lap and repair of perforation on 12/19. Patient is on antibiotics as per Dr Quinonez.continue Amikacin, Meropenem, Micafungin and daptomycin patient has fever spikes,abdominal wall culture growing tanvi albicans Patient just had CT chest,abdomen and pelvis without contrast yesterday CT scan repeated with oral contrast showed done on 12/27 showed duodenal perforation/leak. Patient had Endoscopic closure using clips by Dr Flynn on 12/27 KORI drains continue to have bilious output with persistent duodenal leak GI recommend to get additional drain by IR and consider placement of J-tube for feeding Discussed with DR Flynn at ICU-No plan for any surgical procedure.Continue octreotide to reduce secretion Discussed with surgeon Dr Alatorre. No plan for further surgery. Keep NPO, on TPN 2. KORI drain site cellulitis/abdominal wall abscess ,s/p I and D by surgery 12/31: WBC counts decrease to 12 Continue antibiotics and antifungal as per ID Abscess positive for tanvi albicans 3. Acute renal failure/Oliguric/ATN Started on dialysis on 12/20 Right shiley catheter placed - 12/20 - removed 12/24. Dialysis 12/20 and 12/21. Permacath placed 12/25. Dialysis 12/25 HD on MWF as per nephrology .continue to monitor for spontaneous renal recovery we will follow with nephrology medication dose adjustment with Renal function and avoid nephrotoxic meds. 5. Fever-She has fever spikes Culture's urine and blood negative,abdominal abscess positive for fungus wbc remains high continue Amikacin, Meropenem,Micafungin and daptomycin as per Dr Quinonez. 6. Respiratory failure 12/31: Remains extubated at this time. 12/30: Was extubated yesterday afternoon. 7.Anemia- 12/31: Being transfused one unit PRBC today. Stool OB negative Continue epogen 8.DVT prophylaxis is on heparin SQ and GI prophylaxis is on protonix
--- NOTE | 2017-12-31 11:19 | CP.PCM.PN ---
<Peewee [place] - Last Filed: 12/31/17 11:14> Subjective - Date & Time of Evaluation Date of Evaluation: 12/31/17 Time of Evaluation: 11:14 - Subjective Subjective: General Surgery Progress Note for Dr. Alatorre This 77M was seen and examined this AM at bedside. Tmax overnight 100.7, drain output over 24 hours 1463 ml bilious. [place] removed this AM an a large abscess was drained. Objective - Vital Signs/Intake and Output Vital Signs (last 24 hours): Temp Pulse Resp BP Pulse Ox 98.2 F 86 20 88/37 L 100 12/31/17 11:00 12/31/17 11:00 12/31/17 11:00 12/31/17 11:00 12/31/17 10:07 Intake and Output: 12/31/17 12/31/17 06:59 18:59 Intake Total 1389.5 445.5 Output Total 588 160 Balance 801.5 285.5 - Medications Medications: Current Medications Acetaminophen (Tylenol 650 Mg Supp) 650 mg [place] Q6 PRN PRN Reason: Fever >100.4 F Last Admin: 12/31/17 08:38 Dose: 650 mg Albumin Human (Albumin Human 25% (12.5 Gm/50 Ml)) 25 gm IV MWF PRN PRN Reason: Other Last Admin: 12/30/17 11:22 Dose: 25 gm Albuterol/Ipratropium (Duoneb 3 Mg/0.5 Mg (3 Ml) Ud) 3 ml INH RQ4 [facility] Last Admin: 12/31/17 07:15 Dose: 3 ml Dextrose (Dextrose 50% Inj) 0 ml IV STAT PRN; Protocol PRN Reason: Hypoglycemia Protocol Dextrose (Glutose 15) 15 gm PO ONCE PRN; Protocol PRN Reason: Hypoglycemia Protocol Epoetin Juan F (Procrit) 10,000 unit IV [facility] Glucagon (Glucagen Diagnostic Kit) 1 mg IM STAT PRN; Protocol PRN Reason: Hypoglycemia Protocol Heparin Sodium (Porcine) (Heparin) 3,700 units IVP [facility] Last Admin: 12/30/17 12:16 Dose: 3,700 units Dextrose (Dextrose 5% In Water 1000 Ml) 1,000 mls @ 0 mls/hr IV .Q0M PRN; Protocol; Per Protocol PRN Reason: Hypoglycemia Protocol Meropenem 500 mg/ Sodium (Chloride) 100 mls @ 100 mls/hr IVPB Q12 [facility] PRN Reason: Protocol Last Admin: 12/31/17 09:32 Dose: 100 mls/hr Micafungin Sodium 100 mg/ (Sodium Chloride) 100 mls @ 100 mls/hr IV Q24H [facility] PRN Reason: Protocol Last Admin: 12/31/17 09:32 Dose: 100 mls/hr Daptomycin 600 mg/ Sodium (Chloride) 100 mls @ 100 mls/hr IV Q48H [facility] PRN Reason: Protocol Stop: 01/04/18 19:31 Last Admin: 12/30/17 18:51 Dose: 100 mls/hr Amikacin Sulfate 750 mg/ (Dextrose) 253 mls @ 250 mls/hr IVPB Q48H [facility] PRN Reason: Protocol Last Admin: 12/30/17 19:59 Dose: 250 mls/hr Dexmedetomidine HCl 200 mcg/ (Sodium Chloride) 50 mls @ 5.52 mls/hr IV TITR PRN ; Protocol; 0.2 MCG/KG/HR PRN Reason: Agitation Last Admin: 12/31/17 09:34 Dose: 0.2 mcg/kg/hr, 5.52 mls/hr Sodium Chloride 35 meq/Magnesium Sulfate 3 meq/Calcium Gluconate 4.5 meq/ Heparin Sodium (Porcine) 1,000 units/ Multivitamins/Vitamin C 10 ml/ Amino Acids 1,030.1663 mls @ 42 mls/hr IV .Q24H ONE Stop: 12/31/17 17:59 Last Admin: 12/30/17 17:30 Dose: 42 mls/hr Sodium Chloride 35 meq/Magnesium Sulfate 3 meq/Calcium Gluconate 4.5 meq/ Heparin Sodium (Porcine) 1,000 units/ Multivitamins/Vitamin C 10 ml/ Amino Acids 1,030.1663 mls @ 42 mls/hr IV .Q24H ONE Stop: 01/01/18 17:59 Insulin Human Regular (Novolin R) 0 unit SC Q6 [facility] PRN Reason: Protocol Last Admin: 12/31/17 06:05 Dose: 2 unit Octreotide Acetate (Sandostatin) 300 mcg SC TID [facility] Last Admin: 12/31/17 10:34 Dose: 300 mcg Pantoprazole Sodium (Protonix Inj) 40 mg IVP Q12H [facility] Last Admin: 12/31/17 09:32 Dose: 40 mg - Labs Labs: 12/31/17 06:32 12/31/17 06:20 PT 14.0 SECONDS (9.7-12.2) H 12/24/17 08:54 INR 1.3 12/24/17 08:54 APTT 40 SECONDS (21-34) H 12/18/17 12:39 - Constitutional Appears: Non-toxic, No Acute Distress - Head Exam Head Exam: ATRAUMATIC, NORMOCEPHALIC - Eye Exam Eye Exam: EOMI - Respiratory Exam Respiratory Exam: NORMAL BREATHING PATTERN - Cardiovascular Exam Cardiovascular Exam: +S1, +S2 - GI/Abdominal Exam GI & Abdominal Exam: Soft. absent: Distended, Firm, Guarding, Rigid, Tenderness - Neurological Exam Neurological Exam: Alert, Awake - Psychiatric Exam Psychiatric exam: Normal Affect, Normal Mood - Skin Skin Exam: Dry, Intact Assessment and Plan - Assessment and Plan (Free Text) Assessment: 77F s/p repair of duodenal perforation with jourdan patch POD 14 POD 4 s/p endoscopic clips Wound cx : tanvi albican TMax 100.7 WBC Downtrending 23.7-->20.9 --> 19.7 -->18.1 -->16.2 -->14.7 -->12.3 Plan: - drain management - Dialysis as needed - IVF - NPO -TPN - Octreotide sc - ABX/Antifungal per ID - Place wound vac D/W Dr. Celi [place] PGY2 <Deion Alatorre - Last Filed: 01/05/18 19:58> Objective - Vital Signs/Intake and Output Vital Signs (last 24 hours): Temp Pulse Resp BP Pulse Ox 97.8 F 94 H 28 H 126/52 L 100 01/01/18 17:00 01/01/18 19:34 01/01/18 19:34 01/01/18 19:35 01/01/18 19:34 - Labs Labs: 01/01/18 06:19 01/01/18 06:19 PT 14.0 SECONDS (9.7-12.2) H 12/24/17 08:54 INR 1.3 12/24/17 08:54 APTT 40 SECONDS (21-34) H 12/18/17 12:39 Attending/Attestation - Attestation I have personally seen and examined this patient.: Yes I have fully participated in the care of the patient.: Yes I have reviewed all pertinent clinical information, including history, physical exam and plan: Yes Notes (Text): Pt was seen and examined at bedside Agree with above note and assessment Pt is stable clinically Wound vac for abdominal wound and debridement C/W IV antibiotics Dr. Collier for Hepatobiliary consult at [facility] for possible transfer c.w current mx Plan d.w ICU team, patient and daughter in detail Risk and benefit explained in detail
--- NOTE | 2017-12-31 11:47 | CP.PCM.PN ---
Subjective - Date & Time of Evaluation Date of Evaluation: 12/31/17 Time of Evaluation: 08:00 - Subjective Subjective: Patient extubated 12/29/17. Currently on nonbreather. Patient is able to follow commands, unable to speak in cohesive phrases. Patient is still lethargic. Objective - Vital Signs/Intake and Output Vital Signs (last 24 hours): Temp Pulse Resp BP Pulse Ox 99.3 F 87 24 97/42 L 100 12/31/17 11:15 12/31/17 11:15 12/31/17 11:15 12/31/17 11:15 12/31/17 10:07 Intake and Output: 12/31/17 12/31/17 06:59 18:59 Intake Total 1389.5 445.5 Output Total 588 160 Balance 801.5 285.5 - Medications Medications: Current Medications Acetaminophen (Tylenol 650 Mg Supp) 650 mg [place] Q6 PRN PRN Reason: Fever >100.4 F Last Admin: 12/31/17 08:38 Dose: 650 mg Albumin Human (Albumin Human 25% (12.5 Gm/50 Ml)) 25 gm IV MWF PRN PRN Reason: Other Last Admin: 12/30/17 11:22 Dose: 25 gm Albuterol/Ipratropium (Duoneb 3 Mg/0.5 Mg (3 Ml) Ud) 3 ml INH RQ4 [facility] Last Admin: 12/31/17 07:15 Dose: 3 ml Dextrose (Dextrose 50% Inj) 0 ml IV STAT PRN; Protocol PRN Reason: Hypoglycemia Protocol Dextrose (Glutose 15) 15 gm PO ONCE PRN; Protocol PRN Reason: Hypoglycemia Protocol Epoetin Juan F (Procrit) 10,000 unit IV [facility] [place] Glucagon (Glucagen Diagnostic Kit) 1 mg IM STAT PRN; Protocol PRN Reason: Hypoglycemia Protocol Heparin Sodium (Porcine) (Heparin) 3,700 units IVP [facility] [place] Last Admin: 12/30/17 12:16 Dose: 3,700 units Dextrose (Dextrose 5% In Water 1000 Ml) 1,000 mls @ 0 mls/hr IV .Q0M PRN; Protocol; Per Protocol PRN Reason: Hypoglycemia Protocol Meropenem 500 mg/ Sodium (Chloride) 100 mls @ 100 mls/hr IVPB Q12 [facility] PRN Reason: Protocol Last Admin: 12/31/17 09:32 Dose: 100 mls/hr Micafungin Sodium 100 mg/ (Sodium Chloride) 100 mls @ 100 mls/hr IV Q24H [facility] PRN Reason: Protocol Last Admin: 12/31/17 09:32 Dose: 100 mls/hr Daptomycin 600 mg/ Sodium (Chloride) 100 mls @ 100 mls/hr IV Q48H [facility] PRN Reason: Protocol Stop: 01/04/18 19:31 Last Admin: 12/30/17 18:51 Dose: 100 mls/hr Amikacin Sulfate 750 mg/ (Dextrose) 253 mls @ 250 mls/hr IVPB Q48H [facility] PRN Reason: Protocol Last Admin: 12/30/17 19:59 Dose: 250 mls/hr Dexmedetomidine HCl 200 mcg/ (Sodium Chloride) 50 mls @ 5.52 mls/hr IV TITR PRN ; Protocol; 0.2 MCG/KG/HR PRN Reason: Agitation Last Admin: 12/31/17 09:34 Dose: 0.2 mcg/kg/hr, 5.52 mls/hr Sodium Chloride 35 meq/Magnesium Sulfate 3 meq/Calcium Gluconate 4.5 meq/ Heparin Sodium (Porcine) 1,000 units/ Multivitamins/Vitamin C 10 ml/ Amino Acids 1,030.1663 mls @ 42 mls/hr IV .Q24H ONE Stop: 12/31/17 17:59 Last Admin: 12/30/17 17:30 Dose: 42 mls/hr Sodium Chloride 35 meq/Magnesium Sulfate 3 meq/Calcium Gluconate 4.5 meq/ Heparin Sodium (Porcine) 1,000 units/ Multivitamins/Vitamin C 10 ml/ Amino Acids 1,030.1663 mls @ 42 mls/hr IV .Q24H ONE Stop: 01/01/18 17:59 Insulin Human Regular (Novolin R) 0 unit SC Q6 [facility] PRN Reason: Protocol Last Admin: 12/31/17 06:05 Dose: 2 unit Octreotide Acetate (Sandostatin) 300 mcg SC TID [facility] Last Admin: 12/31/17 10:34 Dose: 300 mcg Pantoprazole Sodium (Protonix Inj) 40 mg IVP Q12H [facility] Last Admin: 12/31/17 09:32 Dose: 40 mg - Labs Labs: 12/31/17 06:32 12/31/17 06:20 PT 14.0 SECONDS (9.7-12.2) H 12/24/17 08:54 INR 1.3 12/24/17 08:54 APTT 40 SECONDS (21-34) H 12/18/17 12:39 - Constitutional Appears: Chronically Ill - Head Exam Head Exam: NORMOCEPHALIC - Eye Exam Eye Exam: absent: Scleral icterus - ENT Exam ENT Exam: Mucous Membranes Dry - Neck Exam Neck Exam: absent: Lymphadenopathy - Respiratory Exam Respiratory Exam: Decreased Breath Sounds - Cardiovascular Exam Cardiovascular Exam: REGULAR RHYTHM - GI/Abdominal Exam GI & Abdominal Exam: Distended Assessment and Plan (1) Peritonitis Status: Acute (2) Sepsis Status: Acute (3) Sepsis Status: Acute (4) Renal failure (ARF), acute on chronic Status: Acute (5) Renal failure (ARF), acute on chronic Status: Acute
--- NOTE | 2017-12-31 12:30 | CP.PCM.PN ---
Subjective - Date & Time of Evaluation Date of Evaluation: 12/31/17 Time of Evaluation: 12:29 - Subjective Subjective: Nephrology Consultation Note: Assessment: critical oliguric Acute Kidney Injury (N17.9) likely hemodynamic injury leading to ATN with Pulmonary congestion, started dialysis 12/20/17 HAGMA with respi compensation, hypocalcemia with Vit D insuff (level 23) carcinoid HTN crisis s/p resection now resolved acute abdomen with perforation s/p repair 12/18/17 (ex lap) complicated with biliary leak hypertension, COPD, breast cancer s/p lumpectomy and duodenal neuroendocrine tumor Hyperphoshatemia Plan Plan for HD tomorrow as MWF as ordered. continue to monitor for spontaneous renal recovery. if BP low during HD. IV albumin prn No ACEI/ARB due to MANFRED. Maintain hemodynamics stable. Monitor Input/Output, daily weights and renal function with basic metabolic panel anemia: PRBC as needed. ordered epogen 10,000 unit 3 times a week will give Vit D and iron/MVI, phos binders once pt on diet Dose meds/antibiotics for reduced GFR and dialysis status. Avoid fleets enema/ magnesium based laxatives. Avoid nephrotoxins/NSAIDs/ iodinated contrast ( unless needed emergently) Glycemic control Further work up/management as per primary team Thanks for allowing me to participate in care of your patient. Will follow patient with you. Please call if any Qs. 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 she also had HTN crisis which was treated with cardene drip. renal consult for MANFRED eval. also found to have free air in abdomen Denies OTC/herbal meds or NSAIDs No recent iodinated contrast exposure. Noted obvious episodes of low BP (89/51). ROS: unable as pt delirious Physical Examination: General Appearance: extubated, ill appearing Vitals reviewed and noted as below Head; Atraumatic, normocephalic ENT: deferred. has NG tube EYES: Pupils are equal, round and reactive to light accommodation. Eye muscles and extraocular movement intact. Sclera is anicteric. Neck; supple no lymphadenopathy, no thyromegaly or bruit Lungs: Increased respiratory rate/effort. Breath sounds bilateral equal and bilateral with few wheeze Heart: Normal rate. s1s2 normal. No rub or gallop. Extremities: no edema. No varicose veins Neurological: Patient is awake but delirious Skin: Warm and dry. Normal turgor. No rash. Palpitation: Normal elasticity for age Abdomen: no abdominal tenderness with out guarding but no rigidity no organomegaly s/p exlap Psych: unable MSK: no joint tenderness or swelling. Digits and nails normal, no deformity : kidney or bladder not palpable. has bruce with dark colored urine access: permacath Labs/imaging reviewed. Past medical history, past surgical history, family history, social history, allergy reviewed and noted as below Family hx: no hx of CKD. Rest non-contributory renal imaging: WNL FeNa 0.7% UA 1+ protein no blood Objective - Vital Signs/Intake and Output Vital Signs (last 24 hours): Temp Pulse Resp BP Pulse Ox 99.4 F 86 28 H 96/42 L 100 12/31/17 12:00 12/31/17 12:00 12/31/17 12:00 12/31/17 12:00 12/31/17 10:07 Intake and Output: 12/31/17 12/31/17 06:59 18:59 Intake Total 1389.5 451.0 Output Total 588 160 Balance 801.5 291.0 - Medications Medications: Current Medications Acetaminophen (Tylenol 650 Mg Supp) 650 mg [place] Q6 PRN PRN Reason: Fever >100.4 F Last Admin: 12/31/17 08:38 Dose: 650 mg Albumin Human (Albumin Human 25% (12.5 Gm/50 Ml)) 25 gm IV MWF PRN PRN Reason: Other Last Admin: 12/30/17 11:22 Dose: 25 gm Albuterol/Ipratropium (Duoneb 3 Mg/0.5 Mg (3 Ml) Ud) 3 ml INH RQ4 [facility] Last Admin: 12/31/17 07:15 Dose: 3 ml Dextrose (Dextrose 50% Inj) 0 ml IV STAT PRN; Protocol PRN Reason: Hypoglycemia Protocol Dextrose (Glutose 15) 15 gm PO ONCE PRN; Protocol PRN Reason: Hypoglycemia Protocol Epoetin Juan F (Procrit) 10,000 unit IV [facility] Glucagon (Glucagen Diagnostic Kit) 1 mg IM STAT PRN; Protocol PRN Reason: Hypoglycemia Protocol Heparin Sodium (Porcine) (Heparin) 3,700 units IVP [facility] Last Admin: 12/30/17 12:16 Dose: 3,700 units Dextrose (Dextrose 5% In Water 1000 Ml) 1,000 mls @ 0 mls/hr IV .Q0M PRN; Protocol; Per Protocol PRN Reason: Hypoglycemia Protocol Meropenem 500 mg/ Sodium (Chloride) 100 mls @ 100 mls/hr IVPB Q12 [facility] PRN Reason: Protocol Last Admin: 12/31/17 09:32 Dose: 100 mls/hr Micafungin Sodium 100 mg/ (Sodium Chloride) 100 mls @ 100 mls/hr IV Q24H [facility] PRN Reason: Protocol Last Admin: 12/31/17 09:32 Dose: 100 mls/hr Daptomycin 600 mg/ Sodium (Chloride) 100 mls @ 100 mls/hr IV Q48H [facility] PRN Reason: Protocol Stop: 01/04/18 19:31 Last Admin: 12/30/17 18:51 Dose: 100 mls/hr Amikacin Sulfate 750 mg/ (Dextrose) 253 mls @ 250 mls/hr IVPB Q48H [facility] PRN Reason: Protocol Last Admin: 12/30/17 19:59 Dose: 250 mls/hr Dexmedetomidine HCl 200 mcg/ (Sodium Chloride) 50 mls @ 5.52 mls/hr IV TITR PRN ; Protocol; 0.2 MCG/KG/HR PRN Reason: Agitation Last Admin: 12/31/17 09:34 Dose: 0.2 mcg/kg/hr, 5.52 mls/hr Sodium Chloride 35 meq/Magnesium Sulfate 3 meq/Calcium Gluconate 4.5 meq/ Heparin Sodium (Porcine) 1,000 units/ Multivitamins/Vitamin C 10 ml/ Amino Acids 1,030.1663 mls @ 42 mls/hr IV .Q24H ONE Stop: 12/31/17 17:59 Last Admin: 12/30/17 17:30 Dose: 42 mls/hr Sodium Chloride 35 meq/Magnesium Sulfate 3 meq/Calcium Gluconate 4.5 meq/ Heparin Sodium (Porcine) 1,000 units/ Multivitamins/Vitamin C 10 ml/ Amino Acids 1,030.1663 mls @ 42 mls/hr IV .Q24H ONE Stop: 01/01/18 17:59 Insulin Human Regular (Novolin R) 0 unit SC Q6 [facility] PRN Reason: Protocol Last Admin: 12/31/17 11:52 Dose: Not Given Octreotide Acetate (Sandostatin) 300 mcg SC TID [facility] Last Admin: 12/31/17 10:34 Dose: 300 mcg Pantoprazole Sodium (Protonix Inj) 40 mg IVP Q12H [facility] Last Admin: 12/31/17 09:32 Dose: 40 mg - Labs Labs: 12/31/17 06:32 12/31/17 06:20 PT 14.0 SECONDS (9.7-12.2) H 12/24/17 08:54 INR 1.3 12/24/17 08:54 APTT 40 SECONDS (21-34) H 12/18/17 12:39
[2017-12-31 15:50] LABS: CALCIUM 7.9 mg/dl (8.6-10.4)
[2017-12-31] MEDS ORDERED: HYDROmorphone 0.5 mg/0.5 ml ISec IVP STA (15:53)
--- NOTE | 2017-12-31 16:26 | PCM.PROC ---
<Peewee [place] - Last Filed: 12/31/17 16:08> Procedures Attestation:: I certify that I have explained the specified Operation(s) or Procedure(s), risks, benefits and reasonable alternatives to the Patient and/or other person responsible. The opportunity was given to ask questions and all questions answered - Dressing Care Location #1 Debridment Necessary: No Additional Comments: Pt and family verbally agreed for the procedure. Midline incision cleaned with chlorohexadine and alcohol prep. Staple took out from middle of the incision. Placed [id number] sponge in the midline. [id number] sponge in the lower part of the incision. Both sponge bridged over the skin. secured. Suction applied. No leak detected. Pt tolerated the procedure well. <Deion Alatorre - Last Filed: 01/05/18 17:59> Attending/Attestation - Attestation I have personally seen and examined this patient.: Yes I have fully participated in the care of the patient.: Yes I have reviewed all pertinent clinical information, including history, physical exam and plan: Yes Notes (Text): Post procedure diagnosis: Abdominal wound infection with cellulitis S/P Exp Lap and Repair of duodenal perforation Bile leak Morbid obesity Procedure: 1. Negative pressure wound vac therapy of abdominal wound 30x5x5 cm area 2. Abdominal wound debridement Post procedure diagnosis: Abdominal wound infection with cellulitis S/P Exp Lap and Repair of duodenal perforation Bile leak Morbid obesity
[2017-12-31] MEDS ORDERED: TPN #8 IV ONE (18:00)
[2018-01-01] MEDS: Dexmedetomidine Hydrochloride 200 MCG in Sodium Chloride 0.9% 48 ML IV PRN (01:00)
[2018-01-01] MEDS: Albuterol-Ipratrop 3 mg / 0.5 (3 ml) UD INH SCH ×5 (03:08→19:47)
[2018-01-01 06:36] LABS: BASO # 0.1 K/uL (0.0-0.2); BASO % 0.5 % (0.0-2.0); EOS # 0.4 K/uL (0.0-0.7); EOS % 3.1 % (0.0-4.0); HEMOGLOBIN 8.6 g/dL (11.0-16.0); LYMPH # 1.5 K/uL (1.0-4.3); LYMPH % 12.7 % (20.0-40.0); MEAN CELL VOLUME 83.2 fL (81.0-99.0); MEAN CORPUSCULAR HEMOGLOBIN 26.9 pg (27.0-31.0); MEAN CORPUSCULAR HGB CONC 32.3 g/dL (33.0-37.0); MEAN PLATELET VOLUME 9.7 fL (7.2-11.7); MONO # 1.2 K/uL (0.0-0.8); MONO % 10.3 % (0.0-10.0); NEUT # 8.4 K/uL (1.8-7.0); NEUT % 73.4 % (50.0-75.0); RBC 3.21 Mil/uL (3.80-5.20); RED CELL DISTRIBUTION WIDTH 16.1 % (11.5-14.5); WHITE BLOOD COUNT 11.4 K/uL (4.8-10.8)
[2018-01-01] MEDS: (Novolin R) Insulin Human Regular 100 units/ml vial SC SCH ×3 (06:37→18:15)
[2018-01-01 06:39] LABS: ALB/GLOB RATIO 0.8 (1.0-2.1); ALBUMIN 2.9 g/dL (3.5-5.0)
[2018-01-01] MEDS ORDERED: Midazolam 2 MG/2 ML VIAL ONE (07:33)
[2018-01-01] MEDS ORDERED: Propofol 10 mg/ml Inj (20 ML) ONE (07:33)
[2018-01-01] MEDS ORDERED: Iohexol 240 (50 ml) ONE (07:38)
[2018-01-01] MEDS ORDERED: Epoetin Alfa 10,000 unit/ml Dialysis IV SCH (09:00)
[2018-01-01] MEDS: Meropenem 500 MG in Sodium Chloride 0.9% 100 ML IVPB SCH (09:56)
[2018-01-01] MEDS: Micafungin 100 MG in Sodium Chloride 0.9% 100 ML IV SCH (09:57)
--- NOTE | 2018-01-01 10:32 | CP.CCUPN ---
<Estefania Veliz - Last Filed: 01/01/18 10:27> CCU Subjective - Physician Review Subjective (Free Text): Patient seen and examined at bedside. Patient extubated 12/29/17. Patient is s/p EGD for attempted duodenal stent with no success. Pending surgical reccs as patient's perforation is enlarging. CCU Objective - Vital Signs / Intake & Output Vital Signs (Last 4 hours): Vital Signs Temp Pulse Resp BP Pulse Ox 01/01/18 07:27 99.8 F H 88 25 H 113/42 L 99 Intake and Output (Last 8hrs): Intake & Output 12/31/17 01/01/18 01/01/18 22:59 06:59 14:59 Intake Total 488.4 378.4 289.6 Output Total 495 379 Balance -6.6 -0.6 289.6 Weight 236 lb 14.821 oz Intake: IV 30 20 200 Intake, IV Amount 458.4 358.4 89.6 Right Distal Port PICC 100 Right PICC 22.4 22.4 5.6 right picc 2nd port 336 336 84 Output: Drainage 495 379 KORI 1 400 375 KORI 2 20 4 Left Nare 75 Other: # Bowel Movements 1 0 - Physical Exam Head: Positive for: Atraumatic, Normocephalic, Ecchymosis Extroacular Muscles: Positive for: EOMI Conjunctiva: Positive for: Normal Mouth: Positive for: Other (INTUBATED) Nose (External): Positive for: Other (NGT in place ) Respiratory/Chest: Positive for: Clear to Auscultation. Negative for: Decreased Breath Sounds Cardiovascular: Positive for: Regular Rate and Rhythm Abdomen: Positive for: Tenderness, Normal Bowel Sounds, Other (KORI drains in place, s/p I & D 12/25/17 - dressing clean, dry, intact ). Negative for: Distention Upper Extremity: Positive for: Normal Inspection, NORMAL PULSES, Neurovascularly Intact, Capillary Refill < 2s Lower Extremity: Positive for: Normal Inspection, NORMAL PULSES, Neurovascularly Intact, Capillary Refill < 2 s Neurological: Positive for: GCS=15, CN II-XII Intact Skin: Positive for: Warm, Dry, Normal Color Psychiatric: Positive for: Alert - Medications Active Medications: Active Medications Generic Name Dose Route Start Last Admin Trade Name Freq PRN Reason Stop Dose Admin Acetaminophen 650 mg 12/28/17 10:14 01/01/18 00:28 Tylenol 650 Mg Supp ND 650 mg Q6 PRN Administration Fever >100.4 F Albumin Human 25 gm 12/27/17 14:37 12/30/17 11:22 Albumin Human 25% (12.5 Gm/50 Ml) IV 25 gm MWF PRN Administration Other Albuterol/Ipratropium 3 ml 12/28/17 12:00 01/01/18 07:25 Duoneb 3 Mg/0.5 Mg (3 Ml) Ud INH Not Given RQ4 FESTUS Calcium Acetate 667 mg 01/01/18 08:00 01/01/18 09:57 Phoslo PO Not Given BIDCC FESTUS Dextrose 0 ml 12/16/17 12:08 Dextrose 50% Inj IV STAT PRN Hypoglycemia Protocol Protocol Dextrose 15 gm 12/16/17 12:08 Glutose 15 PO ONCE PRN Hypoglycemia Protocol Protocol Epoetin Juan F 10,000 unit 01/01/18 09:00 Procrit IV MWF [facility] Glucagon 1 mg 12/16/17 12:08 Glucagen Diagnostic Kit IM STAT PRN Hypoglycemia Protocol Protocol Heparin Sodium (Porcine) 3,700 units 12/25/17 16:46 12/30/17 12:16 Heparin IVP 3,700 units MWF FESTUS Administration Dextrose 1,000 mls @ 0 mls/hr 12/16/17 12:08 Dextrose 5% In Water 1000 Ml IV .Q0M PRN Hypoglycemia Protocol Protocol Per Protocol Meropenem 500 mg/ Sodium 100 mls @ 100 mls/hr 12/18/17 10:00 01/01/18 09:56 Chloride IVPB 100 mls/hr Q12 FESTUS Administration Protocol Micafungin Sodium 100 mg/ 100 mls @ 100 mls/hr 12/21/17 10:00 01/01/18 09:57 Sodium Chloride IV 100 mls/hr Q24H FESTUS Administration Protocol Daptomycin 600 mg/ Sodium 100 mls @ 100 mls/hr 12/30/17 19:30 12/30/17 18:51 Chloride IV 01/04/18 19:31 100 mls/hr Q48H FESTUS Administration Protocol Amikacin Sulfate 750 mg/ 253 mls @ 250 mls/hr 12/30/17 20:30 12/30/17 19:59 Dextrose IVPB 250 mls/hr Q48H FESTUS Administration Protocol Dexmedetomidine HCl 200 mcg/ 50 mls @ 5.52 mls/hr 12/30/17 10:03 01/01/18 01: 00 Sodium Chloride IV 0.1 mcg/kg/hr TITR PRN 2.76 mls/hr Agitation Administration Protocol 0.2 MCG/KG/HR Sodium Chloride 35 meq/ 1,030.1663 mls @ 42 mls/hr 12/31/17 18:00 12/31/17 17 :30 Magnesium Sulfate 3 meq/ IV 01/01/18 17:59 42 mls/hr Calcium Gluconate 4.5 meq/ .Q24H ONE Administration Heparin Sodium (Porcine) 1,000 units/ Multivitamins/Vitamin C 10 ml/ Amino Acids Insulin Human Regular 0 unit 12/19/17 00:00 01/01/18 06:37 Novolin R SC 1 unit Q6 FESTUS Administration Protocol Octreotide Acetate 300 mcg 12/30/17 14:00 12/31/17 17:34 Sandostatin SC 300 mcg TID FESTUS Administration Pantoprazole Sodium 40 mg 12/23/17 22:00 01/01/18 09:57 Protonix Inj IVP 40 mg Q12H FESTUS Administration - Patient Studies Lab Studies: Microbiology Studies 12/31/17 08:22 Gram Stain - Final Abdomen Wound Culture - Preliminary Yeast Species Lab Studies 01/01/18 01/01/18 01/01/18 Range/Units 06:30 06:19 06:19 WBC 11.4 H (4.8-10.8) K/uL RBC 3.21 L (3.80-5.20) Mil/uL Hgb 8.6 L (11.0-16.0) g/dL Hct 26.7 L (34.0-47.0) % MCV 83.2 (81.0-99.0) fL MCH 26.9 L (27.0-31.0) pg MCHC 32.3 L (33.0-37.0) g/dL RDW 16.1 H (11.5-14.5) % Plt Count 207 (130-400) K/uL MPV 9.7 (7.2-11.7) fL Neut % (Auto) 73.4 (50.0-75.0) % Lymph % (Auto) 12.7 L (20.0-40.0) % Linn % (Auto) 10.3 H (0.0-10.0) % Eos % (Auto) 3.1 (0.0-4.0) % Baso % (Auto) 0.5 (0.0-2.0) % Neut # (Auto) 8.4 H (1.8-7.0) K/uL Lymph # (Auto) 1.5 (1.0-4.3) K/uL Linn # (Auto) 1.2 H (0.0-0.8) K/uL Eos # (Auto) 0.4 (0.0-0.7) K/uL Baso # (Auto) 0.1 (0.0-0.2) K/uL Sodium 141 (132-148) mmol/L Potassium 4.0 (3.6-5.2) mmol/L Chloride 105 (98-107) mmol/L Carbon Dioxide 18 L (22-30) mmol/L Anion Gap 23 H (10-20) BUN 82 H (7-17) mg/dL Creatinine 6.5 H (0.7-1.2) mg/dL Est GFR ( Amer) 7 Est GFR (Non-Af Amer) 6 POC Glucose (mg/dL) 179 H (65-110) mg/dL Random Glucose 161 H (65-105) mg/dL Calcium 8.0 L (8.6-10.4) mg/dl Phosphorus 7.5 H (2.5-4.5) mg/dL Magnesium 2.1 (1.6-2.3) mg/dL Total Bilirubin 1.1 (0.2-1.3) mg/dL AST 61 H D (14-36) U/L ALT 23 (9-52) U/L Alkaline Phosphatase 104 (38-126) U/L Total Protein 6.5 (6.3-8.3) g/dL Albumin 2.9 L (3.5-5.0) g/dL Globulin 3.5 (2.2-3.9) gm/dL Albumin/Globulin Ratio 0.8 L (1.0-2.1) Blood Type Antibody Screen 12/31/17 12/31/17 12/31/17 Range/Units 23:34 18:17 15:34 WBC (4.8-10.8) K/uL RBC (3.80-5.20) Mil/uL Hgb (11.0-16.0) g/dL Hct (34.0-47.0) % MCV (81.0-99.0) fL MCH (27.0-31.0) pg MCHC (33.0-37.0) g/dL RDW (11.5-14.5) % Plt Count (130-400) K/uL MPV (7.2-11.7) fL Neut % (Auto) (50.0-75.0) % Lymph % (Auto) (20.0-40.0) % Linn % (Auto) (0.0-10.0) % Eos % (Auto) (0.0-4.0) % Baso % (Auto) (0.0-2.0) % Neut # (Auto) (1.8-7.0) K/uL Lymph # (Auto) (1.0-4.3) K/uL Linn # (Auto) (0.0-0.8) K/uL Eos # (Auto) (0.0-0.7) K/uL Baso # (Auto) (0.0-0.2) K/uL Sodium (132-148) mmol/L Potassium (3.6-5.2) mmol/L Chloride (98-107) mmol/L Carbon Dioxide (22-30) mmol/L Anion Gap (10-20) BUN (7-17) mg/dL Creatinine (0.7-1.2) mg/dL Est GFR ( Amer) Est GFR (Non-Af Amer) POC Glucose (mg/dL) 166 H 175 H (65-110) mg/dL Random Glucose (65-105) mg/dL Calcium (8.6-10.4) mg/dl Phosphorus (2.5-4.5) mg/dL Magnesium (1.6-2.3) mg/dL Total Bilirubin (0.2-1.3) mg/dL AST (14-36) U/L ALT (9-52) U/L Alkaline Phosphatase (38-126) U/L Total Protein (6.3-8.3) g/dL Albumin (3.5-5.0) g/dL Globulin (2.2-3.9) gm/dL Albumin/Globulin Ratio (1.0-2.1) Blood Type O POSITIVE Antibody Screen Negative 12/31/17 12/31/17 12/28/17 Range/Units 15:34 11:39 12:13 WBC (4.8-10.8) K/uL RBC (3.80-5.20) Mil/uL Hgb (11.0-16.0) g/dL Hct (34.0-47.0) % MCV (81.0-99.0) fL MCH (27.0-31.0) pg MCHC (33.0-37.0) g/dL RDW (11.5-14.5) % Plt Count (130-400) K/uL MPV (7.2-11.7) fL Neut % (Auto) (50.0-75.0) % Lymph % (Auto) (20.0-40.0) % Linn % (Auto) (0.0-10.0) % Eos % (Auto) (0.0-4.0) % Baso % (Auto) (0.0-2.0) % Neut # (Auto) (1.8-7.0) K/uL Lymph # (Auto) (1.0-4.3) K/uL Linn # (Auto) (0.0-0.8) K/uL Eos # (Auto) (0.0-0.7) K/uL Baso # (Auto) (0.0-0.2) K/uL Sodium 140 (132-148) mmol/L Potassium 4.0 (3.6-5.2) mmol/L Chloride 105 (98-107) mmol/L Carbon Dioxide 19 L (22-30) mmol/L Anion Gap 19 (10-20) BUN 71 H (7-17) mg/dL Creatinine 6.0 H (0.7-1.2) mg/dL Est GFR ( Amer) 8 Est GFR (Non-Af Amer) 7 POC Glucose (mg/dL) 148 H (65-110) mg/dL Random Glucose 169 H (65-105) mg/dL Calcium 7.9 L (8.6-10.4) mg/dl Phosphorus (2.5-4.5) mg/dL Magnesium (1.6-2.3) mg/dL Total Bilirubin (0.2-1.3) mg/dL AST (14-36) U/L ALT (9-52) U/L Alkaline Phosphatase (38-126) U/L Total Protein (6.3-8.3) g/dL Albumin (3.5-5.0) g/dL Globulin (2.2-3.9) gm/dL Albumin/Globulin Ratio (1.0-2.1) Blood Type O POSITIVE Antibody Screen Negative Laboratory Results - last 24 hr 12/28/17 12/31/17 12/31/17 12:13 11:39 15:34 WBC RBC Hgb Hct MCV MCH MCHC RDW Plt Count MPV Neut % (Auto) Lymph % (Auto) Linn % (Auto) Eos % (Auto) Baso % (Auto) Neut # (Auto) Lymph # (Auto) Linn # (Auto) Eos # (Auto) Baso # (Auto) Sodium 140 Potassium 4.0 Chloride 105 Carbon Dioxide 19 L Anion Gap 19 BUN 71 H Creatinine 6.0 H Est GFR ( Amer) 8 Est GFR (Non-Af Amer) 7 POC Glucose (mg/dL) 148 H Random Glucose 169 H Calcium 7.9 L Phosphorus Magnesium Total Bilirubin AST ALT Alkaline Phosphatase Total Protein Albumin Globulin Albumin/Globulin Ratio Blood Type O POSITIVE Antibody Screen Negative 12/31/17 12/31/17 12/31/17 15:34 18:17 23:34 WBC RBC Hgb Hct MCV MCH MCHC RDW Plt Count MPV Neut % (Auto) Lymph % (Auto) Linn % (Auto) Eos % (Auto) Baso % (Auto) Neut # (Auto) Lymph # (Auto) Linn # (Auto) Eos # (Auto) Baso # (Auto) Sodium Potassium Chloride Carbon Dioxide Anion Gap BUN Creatinine Est GFR ( Amer) Est GFR (Non-Af Amer) POC Glucose (mg/dL) 175 H 166 H Random Glucose Calcium Phosphorus Magnesium Total Bilirubin AST ALT Alkaline Phosphatase Total Protein Albumin Globulin Albumin/Globulin Ratio Blood Type O POSITIVE Antibody Screen Negative 01/01/18 01/01/18 01/01/18 06:19 06:19 06:30 WBC 11.4 H RBC 3.21 L Hgb 8.6 L Hct 26.7 L MCV 83.2 MCH 26.9 L MCHC 32.3 L RDW 16.1 H Plt Count 207 MPV 9.7 Neut % (Auto) 73.4 Lymph % (Auto) 12.7 L Linn % (Auto) 10.3 H Eos % (Auto) 3.1 Baso % (Auto) 0.5 Neut # (Auto) 8.4 H Lymph # (Auto) 1.5 Linn # (Auto) 1.2 H Eos # (Auto) 0.4 Baso # (Auto) 0.1 Sodium 141 Potassium 4.0 Chloride 105 Carbon Dioxide 18 L Anion Gap 23 H BUN 82 H Creatinine 6.5 H Est GFR ( Amer) 7 Est GFR (Non-Af Amer) 6 POC Glucose (mg/dL) 179 H Random Glucose 161 H Calcium 8.0 L Phosphorus 7.5 H Magnesium 2.1 Total Bilirubin 1.1 AST 61 H D ALT 23 Alkaline Phosphatase 104 Total Protein 6.5 Albumin 2.9 L Globulin 3.5 Albumin/Globulin Ratio 0.8 L Blood Type Antibody Screen Fingerstick Blood Sugar Results: 179 Critical Care Progress Note - Nutrition Nutrition: Nutrition Category Date Time Status NPO Diet [DIET] Diets 12/20/17 Dinner Active Assessment/Plan - Assessment and Plan (Free Text) Assessment: This is a 77yo female with history of hypertension, COPD, breast cancer s/p lumpectomy that presented to same day 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 During the procedure, patient experienced a significant amount of bleeding which was treated with a combination of clipping , electrocautery and epinephrine. Bleeding was significantly reduced however patient was subsequently admitted to ICU for close observation. Patient was admitted to ICU due to SBP 220/140s initially on cardene drip x 1 - 2 hours Returned to OR 12/18/17 due to increasing free air noted on repeat CT scan ; s/p ex lap primary repair of duodenal perforation, jourdan patch. Omentectomy. Picc line placed 12/20/17 Right shiley catheter placed - 12/20 - removed 12/24. Permacath placed 12/25 12/25 bedside I & D of abdominal wall abscess, wound cultures sent - tanvi - patient has been on micafungin 12/21 12/27- Ongoing duodenal leak s/p EGD with OTSC x 2 12/29 - patient was extubated Total 4 units PRBCs transfused throughout admission Plan: Neuro: - Extubated 12/30 on NC - On Precedex for pain and agitation Cardio: A: Hypertension - Initially was on Cardene Drip; currently not on any antihypertensives Pulm: - Extubated 12/30 on NC A: COPD - Duonebs Q4 FESTUS GI: A: Duodenal perforation s/p surgical repair 12/18 - No further surgical intervention - [address], actively draining - Started Octreotide SC 12/27/17 - Ongoing duodenal leak s/p EGD with OTSC x 2 - 12/27 - 100cc expressed from abdominal surgical site - wound vac placed - Plan for EGD with duodenal stent placement 01/[address] Flynn with unsuccessful placement - Pending surgical reccs as patient's perforation is enlarging. 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 Alatorre - Previous hemorrhage - stabilized with a combination of clipping, electrocautery and epinephrine - PPI Q12 - Ct chest, abdomen, pelvis 2/2 abdominal pain and guarding on exam: Mild increase in the extent of pneumoperitoneum. Increasing ascites. Extensive gas adjacent to 2nd duodenum and nasim hepatis. Status post cholecystectomy. Nasogastric tube. Fluid in retroperitoneum and gas in perinephric space on right side. Cannot rule out pancreatitis. Please correlate. Trace right pleural effusion. No pulmonary infiltrate. - Upper GI series - Free air noted - As per surgery patient is for OR due to increasing free air ; s/p ex lap primary repair of duodenal perforation, jourdan patch. Omentectomy. 12/18 - Repeat CT Scan with PO contrast: Demonstration of duodenal perforation at the time of this examination with oral contrast administered prior to the examination seen extrinsic to the duodenum, in the right pericolic gutter extending down to the level of the right ileo psoas. There is questionable low- density collection in the inferior extent of the right rectus sheath though there is no oral contrast seen in this location. The surgical drain currently in place traverses the major portion of the extrinsic intraperitoneal/ retroperitoneal contrast collection. A: Pancreatitis? - Noted on CT C/ab/pel: Limited study. There are linear atelectatic and or scarring changes seen in the right and left upper lobes as well as the left lower lobe. Cholecystectomy with in situ drainage catheter. Findings are consistent with acute pancreatitis with peripancreatic infiltration and small amount of fluid extending into the right para renal space. - Lipase- elevated A: Pancreatic nodule - Questionable 9 mm rounded fluid density mass in the pancreatic body. This was not clearly appreciated on prior CT examination of 12/16/2017. Further evaluation is advised when clinically feasible with multiphasic contrast- enhanced CT. A: Transaminitis, Elevated T. Bili - RESOLVED - Viral hepatitis - negative - Abominal US - Diffuse increased echogenicity in the liver may reflect hepatic steatosis however parenchymal infectious/ inflammatory etiologies cannot be entirely excluded. Clinical and laboratory correlation is advised. Mild perihepatic ascites. Endo: A: Thyroid Nodule - There is a 1.9 cm mass in the lower pole of the left thyroid lobe. - Correlate with thyroid ultrasound examination. A: Hypocalcemia - Repleting A: IGT - HgA1c 5.9 Renal: A: ARF - Improving with HD - 2/2 ATN - MWF schedule - Avoid nephrotoxic drugs - Abdominal US- no sign of renal obstruction - Inserted bruce - Right Shiley catheter inserted 12/20- removed 12/24 - Permacath placed 12/25/17 - frida Earl ID: A: SIRS, Bandemia - resolving ID Consulted - Dr. Quinonez - Afebrile, vitals stable, no leukocytosis, no source of infection - Patient was prince-cultured- all negative - Right dialysis catheter removed 12/24 - culture negative to date - Wound culture - Tanvi - Meropenem renally dosed started 12/18/17, Micafungin 100mg Q12 started 12/21, started Amikacin 750mg Q48H and Daptomycin 600mg Q48H - 12/26 A: Abdominal wall abscess - S/P I&D 12/25/17 - Wound culture - Tanvi - Micafungin 100mg Q12 started 12/21 - Wound vac in place 12/31 A: Diarrhea - Resolved - Likely 2/2 to abx - Diff- negative, probiotic started Heme/ Onc: A: Anemia - Hemoglobin baseline - - CT chest, ab, pelvis - no evidence of internal hemorrhage - S/P 1 unit 12/20, 2nd unit transfused 12/25, 3rd unit transfused 12/25, 4th unit 12/31 - Continue to monitor A: Hx breast cancer s/p lumpectomy Prophylaxis: - PPI Q12 - SCDs, VTE during dialysis - Right PICC line 12/20, Right shiley cath inserted 12/20 - REMOVED 12/24, R Permacath placed 12/25 - Currently on TPN - Palliative care consulted Disposition: Pending surgery reccs. DW Dr. Shelton, Estefania Veliz DO, PGY-1 <Delgado Shelton S - Last Filed: 01/01/18 14:22> CCU Objective - Vital Signs / Intake & Output Vital Signs (Last 4 hours): Vital Signs Temp Pulse Pulse Resp BP BP Pulse Ox 01/01/18 14:15 95 H 28 H 121/55 L 96 01/01/18 14:09 98.4 F 94 H 26 H 133/50 L 97 01/01/18 14:00 98.4 F 94 H 26 H 133/50 L 97 01/01/18 11:17 93 H 32 H 129/52 L 99 01/01/18 11:01 89 30 H 109/46 L 99 01/01/18 10:31 92 H 30 H 95/43 L 98 Intake and Output (Last 8hrs): Intake & Output 12/31/17 01/01/18 01/01/18 22:59 06:59 14:59 Intake Total 488.4 378.4 578.8 Output Total 495 379 Balance -6.6 -0.6 578.8 Weight 236 lb 14.821 oz Intake: IV 30 20 210 Intake, IV Amount 458.4 358.4 368.8 Right Distal Port PICC 100 100 Right PICC 22.4 22.4 16.8 right picc 2nd port 336 336 252 Output: Drainage 495 379 KORI 1 400 375 KORI 2 20 4 Left Nare 75 Other: # Voids Urine, Voided 0 # Bowel Movements 1 0 - Medications Active Medications: Active Medications Generic Name Dose Route Start Last Admin Trade Name Freq PRN Reason Stop Dose Admin Acetaminophen 650 mg 12/28/17 10:14 01/01/18 00:28 Tylenol 650 Mg Supp ND 650 mg Q6 PRN Administration Fever >100.4 F Albumin Human 25 gm 12/27/17 14:37 12/30/17 11:22 Albumin Human 25% (12.5 Gm/50 Ml) IV 25 gm MWF PRN Administration Other Albuterol/Ipratropium 3 ml 12/28/17 12:00 01/01/18 13:00 Duoneb 3 Mg/0.5 Mg (3 Ml) Ud INH 3 ml RQ4 FESTUS Administration Calcium Acetate 667 mg 01/01/18 08:00 01/01/18 09:57 Phoslo PO Not Given BIDCC FESTUS Dextrose 0 ml 12/16/17 12:08 Dextrose 50% Inj IV STAT PRN Hypoglycemia Protocol Protocol Dextrose 15 gm 12/16/17 12:08 Glutose 15 PO ONCE PRN Hypoglycemia Protocol Protocol Epoetin Juan F 10,000 unit 01/01/18 09:00 Procrit IV MWF FESTUS Glucagon 1 mg 12/16/17 12:08 Glucagen Diagnostic Kit IM STAT PRN Hypoglycemia Protocol Protocol Heparin Sodium (Porcine) 3,700 units 12/25/17 16:46 12/30/17 12:16 Heparin IVP 3,700 units MWF FESTUS Administration Dextrose 1,000 mls @ 0 mls/hr 12/16/17 12:08 Dextrose 5% In Water 1000 Ml IV .Q0M PRN Hypoglycemia Protocol Protocol Per Protocol Meropenem 500 mg/ Sodium 100 mls @ 100 mls/hr 12/18/17 10:00 01/01/18 09:56 Chloride IVPB 100 mls/hr Q12 FESTUS Administration Protocol Micafungin Sodium 100 mg/ 100 mls @ 100 mls/hr 12/21/17 10:00 01/01/18 09:57 Sodium Chloride IV 100 mls/hr Q24H FESTUS Administration Protocol Daptomycin 600 mg/ Sodium 100 mls @ 100 mls/hr 12/30/17 19:30 12/30/17 18:51 Chloride IV 01/04/18 19:31 100 mls/hr Q48H FESTUS Administration Protocol Amikacin Sulfate 750 mg/ 253 mls @ 250 mls/hr 12/30/17 20:30 12/30/17 19:59 Dextrose IVPB 250 mls/hr Q48H FESTUS Administration Protocol Dexmedetomidine HCl 200 mcg/ 50 mls @ 5.52 mls/hr 12/30/17 10:03 01/01/18 11: 23 Sodium Chloride IV 0 mcg/kg/hr TITR PRN 0 mls/hr Agitation Titration Protocol 0.2 MCG/KG/HR Sodium Chloride 35 meq/ 1,030.1663 mls @ 42 mls/hr 01/01/18 18:00 Magnesium Sulfate 3 meq/ IV 01/02/18 17:59 Calcium Gluconate 4.5 meq/ .Q24H ONE Heparin Sodium (Porcine) 1,000 units/ Multivitamins/Vitamin C 10 ml/ Amino Acids Insulin Human Regular 0 unit 12/19/17 00:00 01/01/18 06:37 Novolin R SC 1 unit Q6 FESTUS Administration Protocol Octreotide Acetate 300 mcg 12/30/17 14:00 01/01/18 11:24 Sandostatin SC 300 mcg TID FESTUS Administration Pantoprazole Sodium 40 mg 12/23/17 22:00 01/01/18 09:57 Protonix Inj IVP 40 mg Q12H FESTUS Administration - Patient Studies Lab Studies: Microbiology Studies 12/31/17 08:22 Gram Stain - Final Abdomen Wound Culture - Preliminary Yeast Species Lab Studies 01/01/18 01/01/18 01/01/18 Range/Units 06:30 06:19 06:19 WBC 11.4 H (4.8-10.8) K/uL RBC 3.21 L (3.80-5.20) Mil/uL Hgb 8.6 L (11.0-16.0) g/dL Hct 26.7 L (34.0-47.0) % MCV 83.2 (81.0-99.0) fL MCH 26.9 L (27.0-31.0) pg MCHC 32.3 L (33.0-37.0) g/dL RDW 16.1 H (11.5-14.5) % Plt Count 207 (130-400) K/uL MPV 9.7 (7.2-11.7) fL Neut % (Auto) 73.4 (50.0-75.0) % Lymph % (Auto) 12.7 L (20.0-40.0) % Linn % (Auto) 10.3 H (0.0-10.0) % Eos % (Auto) 3.1 (0.0-4.0) % Baso % (Auto) 0.5 (0.0-2.0) % Neut # (Auto) 8.4 H (1.8-7.0) K/uL Lymph # (Auto) 1.5 (1.0-4.3) K/uL Linn # (Auto) 1.2 H (0.0-0.8) K/uL Eos # (Auto) 0.4 (0.0-0.7) K/uL Baso # (Auto) 0.1 (0.0-0.2) K/uL Sodium 141 (132-148) mmol/L Potassium 4.0 (3.6-5.2) mmol/L Chloride 105 (98-107) mmol/L Carbon Dioxide 18 L (22-30) mmol/L Anion Gap 23 H (10-20) BUN 82 H (7-17) mg/dL Creatinine 6.5 H (0.7-1.2) mg/dL Est GFR ( Amer) 7 Est GFR (Non-Af Amer) 6 POC Glucose (mg/dL) 179 H (65-110) mg/dL Random Glucose 161 H (65-105) mg/dL Calcium 8.0 L (8.6-10.4) mg/dl Phosphorus 7.5 H (2.5-4.5) mg/dL Magnesium 2.1 (1.6-2.3) mg/dL Total Bilirubin 1.1 (0.2-1.3) mg/dL AST 61 H D (14-36) U/L ALT 23 (9-52) U/L Alkaline Phosphatase 104 (38-126) U/L Total Protein 6.5 (6.3-8.3) g/dL Albumin 2.9 L (3.5-5.0) g/dL Globulin 3.5 (2.2-3.9) gm/dL Albumin/Globulin Ratio 0.8 L (1.0-2.1) Blood Type Antibody Screen 12/31/17 12/31/17 12/31/17 Range/Units 23:34 18:17 15:34 WBC (4.8-10.8) K/uL RBC (3.80-5.20) Mil/uL Hgb (11.0-16.0) g/dL Hct (34.0-47.0) % MCV (81.0-99.0) fL MCH (27.0-31.0) pg MCHC (33.0-37.0) g/dL RDW (11.5-14.5) % Plt Count (130-400) K/uL MPV (7.2-11.7) fL Neut % (Auto) (50.0-75.0) % Lymph % (Auto) (20.0-40.0) % [place]inn % (Auto) (0.0-10.0) % Eos % (Auto) (0.0-4.0) % Baso % (Auto) (0.0-2.0) % Neut # (Auto) (1.8-7.0) K/uL Lymph # (Auto) (1.0-4.3) K/uL Linn # (Auto) (0.0-0.8) K/uL Eos # (Auto) (0.0-0.7) K/uL Baso # (Auto) (0.0-0.2) K/uL Sodium (132-148) mmol/L Potassium (3.6-5.2) mmol/L Chloride (98-107) mmol/L Carbon Dioxide (22-30) mmol/L Anion Gap (10-20) BUN (7-17) mg/dL Creatinine (0.7-1.2) mg/dL Est GFR ( Amer) Est GFR (Non-Af Amer) POC Glucose (mg/dL) 166 H 175 H (65-110) mg/dL Random Glucose (65-105) mg/dL Calcium (8.6-10.4) mg/dl Phosphorus (2.5-4.5) mg/dL Magnesium (1.6-2.3) mg/dL Total Bilirubin (0.2-1.3) mg/dL AST (14-36) U/L ALT (9-52) U/L Alkaline Phosphatase (38-126) U/L Total Protein (6.3-8.3) g/dL Albumin (3.5-5.0) g/dL Globulin (2.2-3.9) gm/dL Albumin/Globulin Ratio (1.0-2.1) Blood Type O POSITIVE Antibody Screen Negative 12/31/17 Range/Units 15:34 WBC (4.8-10.8) K/uL RBC (3.80-5.20) Mil/uL Hgb (11.0-16.0) g/dL Hct (34.0-47.0) % MCV (81.0-99.0) fL MCH (27.0-31.0) pg MCHC (33.0-37.0) g/dL RDW (11.5-14.5) % Plt Count (130-400) K/uL MPV (7.2-11.7) fL Neut % (Auto) (50.0-75.0) % Lymph % (Auto) (20.0-40.0) % Linn % (Auto) (0.0-10.0) % Eos % (Auto) (0.0-4.0) % Baso % (Auto) (0.0-2.0) % Neut # (Auto) (1.8-7.0) K/uL Lymph # (Auto) (1.0-4.3) K/uL Linn # (Auto) (0.0-0.8) K/uL Eos # (Auto) (0.0-0.7) K/uL Baso # (Auto) (0.0-0.2) K/uL Sodium 140 (132-148) mmol/L Potassium 4.0 (3.6-5.2) mmol/L Chloride 105 (98-107) mmol/L Carbon Dioxide 19 L (22-30) mmol/L Anion Gap 19 (10-20) BUN 71 H (7-17) mg/dL Creatinine 6.0 H (0.7-1.2) mg/dL Est GFR ( Amer) 8 Est GFR (Non-Af Amer) 7 POC Glucose (mg/dL) (65-110) mg/dL Random Glucose 169 H (65-105) mg/dL Calcium 7.9 L (8.6-10.4) mg/dl Phosphorus (2.5-4.5) mg/dL Magnesium (1.6-2.3) mg/dL Total Bilirubin (0.2-1.3) mg/dL AST (14-36) U/L ALT (9-52) U/L Alkaline Phosphatase (38-126) U/L Total Protein (6.3-8.3) g/dL Albumin (3.5-5.0) g/dL Globulin (2.2-3.9) gm/dL Albumin/Globulin Ratio (1.0-2.1) Blood Type Antibody Screen Laboratory Results - last 24 hr 12/31/17 12/31/17 12/31/17 15:34 15:34 18:17 WBC RBC Hgb Hct MCV MCH MCHC RDW Plt Count MPV Neut % (Auto) Lymph % (Auto) Linn % (Auto) Eos % (Auto) Baso % (Auto) Neut # (Auto) Lymph # (Auto) Linn # (Auto) Eos # (Auto) Baso # (Auto) Sodium 140 Potassium 4.0 Chloride 105 Carbon Dioxide 19 L Anion Gap 19 BUN 71 H Creatinine 6.0 H Est GFR ( Amer) 8 Est GFR (Non-Af Amer) 7 POC Glucose (mg/dL) 175 H Random Glucose 169 H Calcium 7.9 L Phosphorus Magnesium Total Bilirubin AST ALT Alkaline Phosphatase Total Protein Albumin Globulin Albumin/Globulin Ratio Blood Type O POSITIVE Antibody Screen Negative 12/31/17 01/01/18 01/01/18 23:34 06:19 06:19 WBC 11.4 H RBC 3.21 L Hgb 8.6 L Hct 26.7 L MCV 83.2 MCH 26.9 L MCHC 32.3 L RDW 16.1 H Plt Count 207 MPV 9.7 Neut % (Auto) 73.4 Lymph % (Auto) 12.7 L Linn % (Auto) 10.3 H Eos % (Auto) 3.1 Baso % (Auto) 0.5 Neut # (Auto) 8.4 H Lymph # (Auto) 1.5 [place] # (Auto) 1.2 H Eos # (Auto) 0.4 Baso # (Auto) 0.1 Sodium 141 Potassium 4.0 Chloride 105 Carbon Dioxide 18 L Anion Gap 23 H BUN 82 H Creatinine 6.5 H Est GFR ( Amer) 7 Est GFR (Non-Af Amer) 6 POC Glucose (mg/dL) 166 H Random Glucose 161 H Calcium 8.0 L Phosphorus 7.5 H Magnesium 2.1 Total Bilirubin 1.1 AST 61 H D ALT 23 Alkaline Phosphatase 104 Total Protein 6.5 Albumin 2.9 L Globulin 3.5 Albumin/Globulin Ratio 0.8 L Blood Type Antibody Screen 01/01/18 06:30 WBC RBC Hgb Hct MCV MCH MCHC RDW Plt Count MPV Neut % (Auto) Lymph % (Auto) [place] % (Auto) Eos % (Auto) Baso % (Auto) Neut # (Auto) Lymph # (Auto) [place] # (Auto) Eos # (Auto) Baso # (Auto) Sodium Potassium Chloride Carbon Dioxide Anion Gap BUN Creatinine Est GFR ( Amer) Est GFR (Non-Af Amer) POC Glucose (mg/dL) 179 H Random Glucose Calcium Phosphorus Magnesium Total Bilirubin AST ALT Alkaline Phosphatase Total Protein Albumin Globulin Albumin/Globulin Ratio Blood Type Antibody Screen Critical Care Progress Note - Nutrition Nutrition: Nutrition Category Date Time Status NPO Diet [DIET] Diets 12/20/17 Dinner Active Attending/Attestation - Attestation I have personally seen and examined this patient.: Yes I have fully participated in the care of the patient.: Yes I have reviewed all pertinent clinical information: Yes Notes (Text): 01/01/18 14:18 patient seen and examined in the intensive care unit . Status post EGD and attempted duodenal stent placement patient arranged by surgery to be transferred to [facility] continue antibiotics Patient is alert and responsive Saturation 99% on 2 L \Afebrile
[2018-01-01] MEDS: Octreotide 500 mcg/ml Inj SC SCH ×3 (11:24→17:57)
--- NOTE | 2018-01-01 12:10 | CP.PCM.PN ---
<Aris,Benita - Last Filed: 01/01/18 12:20> Subjective - Date & Time of Evaluation Date of Evaluation: 01/01/18 Time of Evaluation: 09:00 - Subjective Subjective: GI Fellow PGY4 Progress Note Pt seen and evaluated at bedside, pt with waxing and waning mentation, more alert and awake this am. Pt hemodynamically stable, with no pressor support. Pt tolerating HD sessions. Pt with an abscess around drain and surgical site that was I&D, with wound vac in place. KORI drains with continuous bilious output due to ongoing duodenal leak. Pt transfused 1U PRBCs overnight with no issues. + Fevers ROS:A 12pt ROS was unable to be obtained due to AMS Objective - Vital Signs/Intake and Output Vital Signs (last 24 hours): Temp Pulse Resp BP Pulse Ox 99.6 F 93 H 32 H 129/52 L 99 01/01/18 08:00 01/01/18 11:17 01/01/18 11:17 01/01/18 11:17 01/01/18 11:17 Intake and Output: 01/01/18 01/01/18 06:59 18:59 Intake Total 657.6 578.8 Output Total 379 Balance 278.6 578.8 - Medications Medications: Current Medications Acetaminophen (Tylenol 650 Mg Supp) 650 mg DE Q6 PRN PRN Reason: Fever >100.4 F Last Admin: 01/01/18 00:28 Dose: 650 mg Albumin Human (Albumin Human 25% (12.5 Gm/50 Ml)) 25 gm IV MWF PRN PRN Reason: Other Last Admin: 12/30/17 11:22 Dose: 25 gm Albuterol/Ipratropium (Duoneb 3 Mg/0.5 Mg (3 Ml) Ud) 3 ml INH RQ4 [facility] Last Admin: 01/01/18 07:25 Dose: Not Given Calcium Acetate (Phoslo) 667 mg PO BIDCC [facility] Last Admin: 01/01/18 09:57 Dose: Not Given Dextrose (Dextrose 50% Inj) 0 ml IV STAT PRN; Protocol PRN Reason: Hypoglycemia Protocol Dextrose (Glutose 15) 15 gm PO ONCE PRN; Protocol PRN Reason: Hypoglycemia Protocol Epoetin Juan F (Procrit) 10,000 unit IV MWF [facility] Glucagon (Glucagen Diagnostic Kit) 1 mg IM STAT PRN; Protocol PRN Reason: Hypoglycemia Protocol Heparin Sodium (Porcine) (Heparin) 3,700 units IVP MWF [facility] Last Admin: 12/30/17 12:16 Dose: 3,700 units Dextrose (Dextrose 5% In Water 1000 Ml) 1,000 mls @ 0 mls/hr IV .Q0M PRN; Protocol; Per Protocol PRN Reason: Hypoglycemia Protocol Meropenem 500 mg/ Sodium (Chloride) 100 mls @ 100 mls/hr IVPB Q12 [facility] PRN Reason: Protocol Last Admin: 01/01/18 09:56 Dose: 100 mls/hr Micafungin Sodium 100 mg/ (Sodium Chloride) 100 mls @ 100 mls/hr IV Q24H [facility] PRN Reason: Protocol Last Admin: 01/01/18 09:57 Dose: 100 mls/hr Daptomycin 600 mg/ Sodium (Chloride) 100 mls @ 100 mls/hr IV Q48H [facility] PRN Reason: Protocol Stop: 01/04/18 19:31 Last Admin: 12/30/17 18:51 Dose: 100 mls/hr Amikacin Sulfate 750 mg/ (Dextrose) 253 mls @ 250 mls/hr IVPB Q48H [facility] PRN Reason: Protocol Last Admin: 12/30/17 19:59 Dose: 250 mls/hr Dexmedetomidine HCl 200 mcg/ (Sodium Chloride) 50 mls @ 5.52 mls/hr IV TITR PRN ; Protocol; 0.2 MCG/KG/HR PRN Reason: Agitation Last Titration: 01/01/18 11:23 Dose: 0 mcg/kg/hr, 0 mls/hr Sodium Chloride 35 meq/Magnesium Sulfate 3 meq/Calcium Gluconate 4.5 meq/ Heparin Sodium (Porcine) 1,000 units/ Multivitamins/Vitamin C 10 ml/ Amino Acids 1,030.1663 mls @ 42 mls/hr IV .Q24H ONE Stop: 01/02/18 17:59 Insulin Human Regular (Novolin R) 0 unit SC Q6 [facility] PRN Reason: Protocol Last Admin: 01/01/18 06:37 Dose: 1 unit Octreotide Acetate (Sandostatin) 300 mcg SC TID [facility] Last Admin: 01/01/18 11:24 Dose: 300 mcg Pantoprazole Sodium (Protonix Inj) 40 mg IVP Q12H [facility] Last Admin: 01/01/18 09:57 Dose: 40 mg - Labs Labs: 01/01/18 06:19 01/01/18 06:19 PT 14.0 SECONDS (9.7-12.2) H 12/24/17 08:54 INR 1.3 12/24/17 08:54 APTT 40 SECONDS (21-34) H 12/18/17 12:39 - Constitutional Appears: No Acute Distress, Chronically Ill - Head Exam Head Exam: ATRAUMATIC, NORMAL INSPECTION, NORMOCEPHALIC - Eye Exam Eye Exam: EOMI, Normal appearance, PERRL - ENT Exam ENT Exam: Mucous Membranes Dry - Neck Exam Neck Exam: Full ROM, Normal Inspection - Respiratory Exam Respiratory Exam: Decreased Breath Sounds, NORMAL BREATHING PATTERN - Cardiovascular Exam Cardiovascular Exam: Tachycardia, +S1, +S2 - GI/Abdominal Exam GI & Abdominal Exam: Soft, Normal Bowel Sounds. absent: Distended, Tenderness Additional comments: KORI drainsx2, wound vac on surgical incision site - Rectal Exam Rectal Exam: Deferred - Extremities Exam Extremities Exam: Full ROM, Normal Inspection, Pedal Edema - Back Exam Back Exam: NORMAL INSPECTION - Neurological Exam Neurological Exam: Alert, Awake - Psychiatric Exam Psychiatric exam: Anxious - Skin Skin Exam: Dry, Intact, Normal Color, Warm Assessment and Plan - Assessment and Plan (Free Text) Assessment: This is a 77 year old female with past medical history of hypertension, COPD, breast cancer s/p lumpectomy that presented to same day 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 Pt is s/p EGD/EUS with EMR complicated by bleeding and perforation s/p clip placement x 7, epi injection, and bipolar cautery. 1. Duodenal perforation s/p surgical repair 2. 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 ARF, ATN on HD 4. Sepsis 5. VDRF-now extubated 6. Abdominal cellulites, abscess s/p wound vac 7. Ongoing duodenal leak s/p EGD with OTSC x 2 8. Anemia 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, perforation that was treated with a combination of clipping, electrocautery and epinephrine 12/16/17 - Duodenal perforation with surgical intervention and repair of perforation with jourdan patch 12/18/17 - Ongoing duodenal leak seen on CT scan s/p EGD with OTSC x 2 with partial closure of leak 12/27/17 - Anemia, H/H stable, monitor H/H, no active GI bleeding s/p 1U PRBCs overnight - Protonix BID - IV abx by ID - Pt clinically hemodynamically stable, no pressor - ARF likely ATN, s/p initiation of HD 12/20/17, monitor renal function - Pt on TPN by ICU team - Abdominal wall abscess/cellulites s/p I&D and wound vac - VDRF s/p extubation 12/29/17 - Pt is s/p EGD for stent insertion for ongoing duodenal bulb leak. 20mm defect on endoscopy, stent could not be advanced into duodenum 01/01/18 - Recommend surgical re-evaluation for possible Billroth II intervention- gastrojejunal re-anastamosis - Will continue to follow pt closely <Andrew Flynn - Last Filed: 01/01/18 12:34> Objective - Vital Signs/Intake and Output Vital Signs (last 24 hours): Temp Pulse Resp BP Pulse Ox 99.6 F 93 H 32 H 129/52 L 99 01/01/18 08:00 01/01/18 11:17 01/01/18 11:17 01/01/18 11:17 01/01/18 11:17 Intake and Output: 01/01/18 01/01/18 06:59 18:59 Intake Total 657.6 578.8 Output Total 379 Balance 278.6 578.8 - Medications Medications: Current Medications Acetaminophen (Tylenol 650 Mg Supp) 650 mg DE Q6 PRN PRN Reason: Fever >100.4 F Last Admin: 01/01/18 00:28 Dose: 650 mg Albumin Human (Albumin Human 25% (12.5 Gm/50 Ml)) 25 gm IV MWF PRN PRN Reason: Other Last Admin: 12/30/17 11:22 Dose: 25 gm Albuterol/Ipratropium (Duoneb 3 Mg/0.5 Mg (3 Ml) Ud) 3 ml INH RQ4 [facility] Last Admin: 01/01/18 07:25 Dose: Not Given Calcium Acetate (Phoslo) 667 mg PO BIDCC [facility] Last Admin: 01/01/18 09:57 Dose: Not Given Dextrose (Dextrose 50% Inj) 0 ml IV STAT PRN; Protocol PRN Reason: Hypoglycemia Protocol Dextrose (Glutose 15) 15 gm PO ONCE PRN; Protocol PRN Reason: Hypoglycemia Protocol Epoetin Juan F (Procrit) 10,000 unit IV [facility] Glucagon (Glucagen Diagnostic Kit) 1 mg IM STAT PRN; Protocol PRN Reason: Hypoglycemia Protocol Heparin Sodium (Porcine) (Heparin) 3,700 units IVP [facility] Last Admin: 12/30/17 12:16 Dose: 3,700 units Dextrose (Dextrose 5% In Water 1000 Ml) 1,000 mls @ 0 mls/hr IV .Q0M PRN; Protocol; Per Protocol PRN Reason: Hypoglycemia Protocol Meropenem 500 mg/ Sodium (Chloride) 100 mls @ 100 mls/hr IVPB Q12 [facility] PRN Reason: Protocol Last Admin: 01/01/18 09:56 Dose: 100 mls/hr Micafungin Sodium 100 mg/ (Sodium Chloride) 100 mls @ 100 mls/hr IV Q24H [facility] PRN Reason: Protocol Last Admin: 01/01/18 09:57 Dose: 100 mls/hr Daptomycin 600 mg/ Sodium (Chloride) 100 mls @ 100 mls/hr IV Q48H [facility] PRN Reason: Protocol Stop: 01/04/18 19:31 Last Admin: 12/30/17 18:51 Dose: 100 mls/hr Amikacin Sulfate 750 mg/ (Dextrose) 253 mls @ 250 mls/hr IVPB Q48H [facility] PRN Reason: Protocol Last Admin: 12/30/17 19:59 Dose: 250 mls/hr Dexmedetomidine HCl 200 mcg/ (Sodium Chloride) 50 mls @ 5.52 mls/hr IV TITR PRN ; Protocol; 0.2 MCG/KG/HR PRN Reason: Agitation Last Titration: 01/01/18 11:23 Dose: 0 mcg/kg/hr, 0 mls/hr Sodium Chloride 35 meq/Magnesium Sulfate 3 meq/Calcium Gluconate 4.5 meq/ Heparin Sodium (Porcine) 1,000 units/ Multivitamins/Vitamin C 10 ml/ Amino Acids 1,030.1663 mls @ 42 mls/hr IV .Q24H ONE Stop: 01/02/18 17:59 Insulin Human Regular (Novolin R) 0 unit SC Q6 [facility] PRN Reason: Protocol Last Admin: 01/01/18 06:37 Dose: 1 unit Octreotide Acetate (Sandostatin) 300 mcg SC TID [facility] Last Admin: 01/01/18 11:24 Dose: 300 mcg Pantoprazole Sodium (Protonix Inj) 40 mg IVP Q12H [facility] Last Admin: 01/01/18 09:57 Dose: 40 mg - Labs Labs: 01/01/18 06:19 01/01/18 06:19 PT 14.0 SECONDS (9.7-12.2) H 12/24/17 08:54 INR 1.3 12/24/17 08:54 APTT 40 SECONDS (21-34) H 12/18/17 12:39 Attending/Attestation - Attestation I have personally seen and examined this patient.: Yes I have fully participated in the care of the patient.: Yes I have reviewed all pertinent clinical information, including history, physical exam and plan: Yes Notes (Text): 01/01/18 12:29 77 year old female with h/o duodenal carcinoid s/p EMR c/b perforation, s/p laparotomy with jourdan patch, hospital course complicated by ATN requiring HD, wound infection s/p I&D, with ongoing duodenal leak. Today, endoscopic attempt for duodenal leak treatment with placement of fully covered esophageal stent was unsuccessful. The stent could not be positioned successfully in the duodenum and was not deployed. The endoscopy demonstrated a medium sized proximal duodenal bulb perforation/leak, with previously placed clips in place and evidence of ongoing leak, demonstrated fluoscopically. At this point, all endoscopic options have been exhausted (clips including OTSC and stents have been unsuccessful). She will likely need definitive surgery. Discussed the case extensively with Dr. Alatorre, ICU team, Dr. Hong. Plan will be to transfer patient to [facility] with Dr. Collier to evaluate the patient for possible surgical revision. In the meantime, continue IV antibiotics, TPN, and IV PPI BID.
--- NOTE | 2018-01-01 12:39 | RAD ---
PROCEDURE: Intraoperative Fluoroscopy. HISTORY: EGD/ATTEMPTED STENT PLACEMENT FINDINGS: Fluoroscopic assistance was provided for EGD/ATTEMPTED STENT PLACEMENT . Please refer to the operative report from [facility].
--- NOTE | 2018-01-01 12:53 | CP.PCM.PN ---
Subjective - Date & Time of Evaluation Date of Evaluation: 01/01/18 Time of Evaluation: 11:00 - Subjective Subjective: Patient was seen and examined earlier in the morning. Patient was awake, alert, following basic commands in [place] Appreciate help of surgery. With family member present it was explained that the patient would be transferred [facility] for further care. With help of adjuster piano action , the family member understood and agreed that the best interest would be to transfer. This morning she had an attempted to place stenting to see if this could help decrease the bile leak however it was not successful. She continues to have a lot of bilious output in the KORI drains. She now also has a ventral wound vac as well. Objective - Vital Signs/Intake and Output Vital Signs (last 24 hours): Temp Pulse Resp BP Pulse Ox 99.6 F 93 H 32 H 129/52 L 99 01/01/18 08:00 01/01/18 11:17 01/01/18 11:17 01/01/18 11:17 01/01/18 11:17 Intake and Output: 01/01/18 01/01/18 06:59 18:59 Intake Total 657.6 578.8 Output Total 379 Balance 278.6 578.8 - Medications Medications: Current Medications Acetaminophen (Tylenol 650 Mg Supp) 650 mg [place] Q6 PRN PRN Reason: Fever >100.4 F Last Admin: 01/01/18 00:28 Dose: 650 mg Albumin Human (Albumin Human 25% (12.5 Gm/50 Ml)) 25 gm IV MWF PRN PRN Reason: Other Last Admin: 12/30/17 11:22 Dose: 25 gm Albuterol/Ipratropium (Duoneb 3 Mg/0.5 Mg (3 Ml) Ud) 3 ml INH RQ4 [facility] Last Admin: 01/01/18 07:25 Dose: Not Given Calcium Acetate (Phoslo) 667 mg PO BIDCC [facility] Last Admin: 01/01/18 09:57 Dose: Not Given Dextrose (Dextrose 50% Inj) 0 ml IV STAT PRN; Protocol PRN Reason: Hypoglycemia Protocol Dextrose (Glutose 15) 15 gm PO ONCE PRN; Protocol PRN Reason: Hypoglycemia Protocol Epoetin Juan F (Procrit) 10,000 unit IV MWF [facility] Glucagon (Glucagen Diagnostic Kit) 1 mg IM STAT PRN; Protocol PRN Reason: Hypoglycemia Protocol Heparin Sodium (Porcine) (Heparin) 3,700 units IVP MWF [facility] Last Admin: 12/30/17 12:16 Dose: 3,700 units Dextrose (Dextrose 5% In Water 1000 Ml) 1,000 mls @ 0 mls/hr IV .Q0M PRN; Protocol; Per Protocol PRN Reason: Hypoglycemia Protocol Meropenem 500 mg/ Sodium (Chloride) 100 mls @ 100 mls/hr IVPB Q12 [facility] PRN Reason: Protocol Last Admin: 01/01/18 09:56 Dose: 100 mls/hr Micafungin Sodium 100 mg/ (Sodium Chloride) 100 mls @ 100 mls/hr IV Q24H [facility] PRN Reason: Protocol Last Admin: 01/01/18 09:57 Dose: 100 mls/hr Daptomycin 600 mg/ Sodium (Chloride) 100 mls @ 100 mls/hr IV Q48H [facility] PRN Reason: Protocol Stop: 01/04/18 19:31 Last Admin: 12/30/17 18:51 Dose: 100 mls/hr Amikacin Sulfate 750 mg/ (Dextrose) 253 mls @ 250 mls/hr IVPB Q48H [facility] PRN Reason: Protocol Last Admin: 12/30/17 19:59 Dose: 250 mls/hr Dexmedetomidine HCl 200 mcg/ (Sodium Chloride) 50 mls @ 5.52 mls/hr IV TITR PRN ; Protocol; 0.2 MCG/KG/HR PRN Reason: Agitation Last Titration: 01/01/18 11:23 Dose: 0 mcg/kg/hr, 0 mls/hr Sodium Chloride 35 meq/Magnesium Sulfate 3 meq/Calcium Gluconate 4.5 meq/ Heparin Sodium (Porcine) 1,000 units/ Multivitamins/Vitamin C 10 ml/ Amino Acids 1,030.1663 mls @ 42 mls/hr IV .Q24H ONE Stop: 01/02/18 17:59 Insulin Human Regular (Novolin R) 0 unit SC Q6 [facility] PRN Reason: Protocol Last Admin: 01/01/18 06:37 Dose: 1 unit Octreotide Acetate (Sandostatin) 300 mcg SC TID [facility] Last Admin: 01/01/18 11:24 Dose: 300 mcg Pantoprazole Sodium (Protonix Inj) 40 mg IVP Q12H [facility] Last Admin: 06/27/18 09:57 Dose: 40 mg - Labs Labs: 01/01/18 06:19 01/01/18 06:19 PT 14.0 SECONDS (9.7-12.2) H 12/24/17 08:54 INR 1.3 12/24/17 08:54 APTT 40 SECONDS (21-34) H 12/18/17 12:39 - Constitutional Appears: Unkempt, Chronically Ill - Eye Exam Eye Exam: EOMI - ENT Exam ENT Exam: Mucous Membranes Moist - GI/Abdominal Exam GI & Abdominal Exam: Distended, Soft Additional comments: Two KORI drains present - both drains with bile color thick fluid. Now has wound Vac - Neurological Exam Neurological Exam: Alert, Awake Neuro motor strength exam: Left Upper Extremity: 4, Right Upper Extremity: 4, Left Lower Extremity: 4, Right Lower Extremity: 4 - Psychiatric Exam Psychiatric exam: Depressed, Flat Affect - Skin Skin Exam: Warm
--- NOTE | 2018-01-01 15:37 | CP.PCM.PN ---
Subjective - Date & Time of Evaluation Date of Evaluation: 01/01/18 Time of Evaluation: 08:00 - Subjective Subjective: events noted stent unsuccessful to stop bile leak awake NAD less confused Objective - Vital Signs/Intake and Output Vital Signs (last 24 hours): Temp Pulse Resp BP Pulse Ox 98.4 F 95 H 28 H 121/55 L 96 01/01/18 14:09 01/01/18 14:15 01/01/18 14:15 01/01/18 14:15 01/01/18 14:15 Intake and Output: 01/01/18 01/01/18 06:59 18:59 Intake Total 657.6 578.8 Output Total 379 Balance 278.6 578.8 - Medications Medications: Current Medications Acetaminophen (Tylenol 650 Mg Supp) 650 mg [place] Q6 PRN PRN Reason: Fever >100.4 F Last Admin: 01/01/18 00:28 Dose: 650 mg Albumin Human (Albumin Human 25% (12.5 Gm/50 Ml)) 25 gm IV [facility] PRN PRN Reason: Other Last Admin: 12/30/17 11:22 Dose: 25 gm Albuterol/Ipratropium (Duoneb 3 Mg/0.5 Mg (3 Ml) Ud) 3 ml INH RQ4 [facility] Last Admin: 01/01/18 13:00 Dose: 3 ml Calcium Acetate (Phoslo) 667 mg PO BIDCC [facility] Last Admin: 01/01/18 09:57 Dose: Not Given Dextrose (Dextrose 50% Inj) 0 ml IV STAT PRN; Protocol PRN Reason: Hypoglycemia Protocol Dextrose (Glutose 15) 15 gm PO ONCE PRN; Protocol PRN Reason: Hypoglycemia Protocol Epoetin Juan F (Procrit) 10,000 unit IV [facility] Glucagon (Glucagen Diagnostic Kit) 1 mg IM STAT PRN; Protocol PRN Reason: Hypoglycemia Protocol Heparin Sodium (Porcine) (Heparin) 3,700 units IVP [facility] Last Admin: 12/30/17 12:16 Dose: 3,700 units Dextrose (Dextrose 5% In Water 1000 Ml) 1,000 mls @ 0 mls/hr IV .Q0M PRN; Protocol; Per Protocol PRN Reason: Hypoglycemia Protocol Meropenem 500 mg/ Sodium (Chloride) 100 mls @ 100 mls/hr IVPB Q12 [facility] PRN Reason: Protocol Last Admin: 01/01/18 09:56 Dose: 100 mls/hr Micafungin Sodium 100 mg/ (Sodium Chloride) 100 mls @ 100 mls/hr IV Q24H [facility] PRN Reason: Protocol Last Admin: 01/01/18 09:57 Dose: 100 mls/hr Daptomycin 600 mg/ Sodium (Chloride) 100 mls @ 100 mls/hr IV Q48H [facility] PRN Reason: Protocol Stop: 01/04/18 19:31 Last Admin: 12/30/17 18:51 Dose: 100 mls/hr Amikacin Sulfate 750 mg/ (Dextrose) 253 mls @ 250 mls/hr IVPB Q48H [facility] PRN Reason: Protocol Last Admin: 12/30/17 19:59 Dose: 250 mls/hr Dexmedetomidine HCl 200 mcg/ (Sodium Chloride) 50 mls @ 5.52 mls/hr IV TITR PRN ; Protocol; 0.2 MCG/KG/HR PRN Reason: Agitation Last Titration: 01/01/18 11:23 Dose: 0 mcg/kg/hr, 0 mls/hr Sodium Chloride 35 meq/Magnesium Sulfate 3 meq/Calcium Gluconate 4.5 meq/ Heparin Sodium (Porcine) 1,000 units/ Multivitamins/Vitamin C 10 ml/ Amino Acids 1,030.1663 mls @ 42 mls/hr IV .Q24H ONE Stop: 01/02/18 17:59 Insulin Human Regular (Novolin R) 0 unit SC Q6 [facility] PRN Reason: Protocol Last Admin: 01/01/18 15:26 Dose: Not Given Octreotide Acetate (Sandostatin) 300 mcg SC TID [facility] Last Admin: 01/01/18 15:14 Dose: 300 mcg Pantoprazole Sodium (Protonix Inj) 40 mg IVP Q12H [facility] Last Admin: 01/01/18 09:57 Dose: 40 mg - Labs Labs: 01/01/18 06:19 01/01/18 06:19 PT 14.0 SECONDS (9.7-12.2) H 12/24/17 08:54 INR 1.3 12/24/17 08:54 APTT 40 SECONDS (21-34) H 12/18/17 12:39 - Constitutional Appears: Non-toxic, Chronically Ill - Head Exam Head Exam: NORMOCEPHALIC - Eye Exam Eye Exam: absent: Scleral icterus - ENT Exam ENT Exam: Mucous Membranes Dry - Neck Exam Neck Exam: absent: Lymphadenopathy - Respiratory Exam Respiratory Exam: Decreased Breath Sounds - Cardiovascular Exam Cardiovascular Exam: REGULAR RHYTHM - GI/Abdominal Exam GI & Abdominal Exam: Distended, Soft Additional comments: wounds inspected - Rectal Exam Rectal Exam: Deferred - Exam Exam: NORMAL INSPECTION - Extremities Exam Extremities Exam: Pedal Edema - Back Exam Back Exam: absent: CVA tenderness (L), CVA tenderness (R) - Neurological Exam Neurological Exam: Alert, CN II-XII Intact Assessment and Plan (1) Peritonitis Status: Acute (2) Sepsis Status: Acute (3) Sepsis Status: Acute (4) Renal failure (ARF), acute on chronic Status: Acute (5) Renal failure (ARF), acute on chronic Status: Acute - Assessment and Plan (Free Text) Assessment: for transfer to [facility] sepsis improved
--- NOTE | 2018-01-01 15:42 | CP.PCM.PN ---
Subjective - Date & Time of Evaluation Date of Evaluation: 01/01/18 Time of Evaluation: 13:30 - Subjective Subjective: dialysis note patient was seen on hemodialysis. Patient is awake and conscious Vital sign appear to be stable. No vomiting or nausea reported Objective - Vital Signs/Intake and Output Vital Signs (last 24 hours): Temp Pulse Resp BP Pulse Ox 98.4 F 95 H 28 H 121/55 L 96 01/01/18 14:09 01/01/18 14:15 01/01/18 14:15 01/01/18 14:15 01/01/18 14:15 Intake and Output: 01/01/18 01/01/18 06:59 18:59 Intake Total 657.6 578.8 Output Total 379 Balance 278.6 578.8 - Medications Medications: Current Medications Acetaminophen (Tylenol 650 Mg Supp) 650 mg AR Q6 PRN PRN Reason: Fever >100.4 F Last Admin: 01/01/18 00:28 Dose: 650 mg Albumin Human (Albumin Human 25% (12.5 Gm/50 Ml)) 25 gm IV F PRN PRN Reason: Other Last Admin: 12/30/17 11:22 Dose: 25 gm Albuterol/Ipratropium (Duoneb 3 Mg/0.5 Mg (3 Ml) Ud) 3 ml INH RQ4 [facility] Last Admin: 01/01/18 13:00 Dose: 3 ml Calcium Acetate (Phoslo) 667 mg PO BIDCC [facility] Last Admin: 01/01/18 09:57 Dose: Not Given Dextrose (Dextrose 50% Inj) 0 ml IV STAT PRN; Protocol PRN Reason: Hypoglycemia Protocol Dextrose (Glutose 15) 15 gm PO ONCE PRN; Protocol PRN Reason: Hypoglycemia Protocol Epoetin Juan F (Procrit) 10,000 unit [place] [facility] [place] Glucagon (Glucagen Diagnostic Kit) 1 mg IM STAT PRN; Protocol PRN Reason: Hypoglycemia Protocol Heparin Sodium (Porcine) (Heparin) 3,700 units [place]P [facility] [place] Admin: 12/30/17 12:16 Dose: 3,700 units Dextrose (Dextrose 5% In Water 1000 Ml) 1,000 mls @ 0 mls/hr IV .Q0M PRN; Protocol; Per Protocol PRN Reason: Hypoglycemia Protocol Meropenem 500 mg/ Sodium (Chloride) 100 mls @ 100 mls/hr IVPB Q12 [facility] PRN Reason: Protocol Last Admin: 01/01/18 09:56 Dose: 100 mls/hr Micafungin Sodium 100 mg/ (Sodium Chloride) 100 mls @ 100 mls/hr IV Q24H [facility] PRN Reason: Protocol Last Admin: 01/01/18 09:57 Dose: 100 mls/hr Daptomycin 600 mg/ Sodium (Chloride) 100 mls @ 100 mls/hr IV Q48H [facility] PRN Reason: Protocol Stop: 01/04/18 19:31 Last Admin: 12/30/17 18:51 Dose: 100 mls/hr Amikacin Sulfate 750 mg/ (Dextrose) 253 mls @ 250 mls/hr IVPB Q48H [facility] PRN Reason: Protocol Last Admin: 12/30/17 19:59 Dose: 250 mls/hr Dexmedetomidine HCl 200 mcg/ (Sodium Chloride) 50 mls @ 5.52 mls/hr IV TITR PRN ; Protocol; 0.2 MCG/KG/HR PRN Reason: Agitation Last Titration: 01/01/18 11:23 Dose: 0 mcg/kg/hr, 0 mls/hr Sodium Chloride 35 meq/Magnesium Sulfate 3 meq/Calcium Gluconate 4.5 meq/ Heparin Sodium (Porcine) 1,000 units/ Multivitamins/Vitamin C 10 ml/ Amino Acids 1,030.1663 mls @ 42 mls/hr IV .Q24H ONE Stop: 01/02/18 17:59 Insulin Human Regular (Novolin R) 0 unit SC Q6 [facility] PRN Reason: Protocol Last Admin: 01/01/18 15:26 Dose: Not Given Octreotide Acetate (Sandostatin) 300 mcg SC TID [facility] Last Admin: 01/01/18 15:14 Dose: 300 mcg Pantoprazole Sodium (Protonix Inj) 40 mg IVP Q12H [facility] Last Admin: 01/01/18 09:57 Dose: 40 mg - Labs Labs: 01/01/18 06:19 01/01/18 06:19 PT 14.0 SECONDS (9.7-12.2) H 12/24/17 08:54 INR 1.3 12/24/17 08:54 APTT 40 SECONDS (21-34) H 12/18/17 12:39 - Constitutional Appears: No Acute Distress - ENT Exam ENT Exam: Mucous Membranes Moist - Neck Exam Neck Exam: absent: Lymphadenopathy - Respiratory Exam Respiratory Exam: absent: Chest Wall Tenderness - GI/Abdominal Exam GI & Abdominal Exam: Soft, Normal Bowel Sounds - Extremities Exam Extremities Exam: absent: Calf Tenderness - Back Exam Back Exam: absent: CVA tenderness (L), CVA tenderness (R) - Neurological Exam Neurological Exam: Alert - Psychiatric Exam Psychiatric exam: Normal Affect - Skin Skin Exam: absent: Cyanosis Assessment and Plan (1) Renal failure (ARF), acute on chronic Assessment & Plan: Assessment: critical oliguric Acute Kidney Injury (N17.9) likely hemodynamic injury leading to ATN with Pulmonary congestion, started dialysis 12/20/17 HAGMA with respi compensation, hypocalcemia with Vit D insuff (level 23) carcinoid HTN crisis s/p resection now resolved acute abdomen with perforation s/p repair 12/18/17 (ex lap) complicated with biliary leak hypertension, COPD, breast cancer s/p lumpectomy and duodenal neuroendocrine tumor Hyperphoshatemia Plan hemodialysis up and running now. I discussed the order with the dialysis nurse at the bedside.as ordered. with sodium bath 138. Potassium bath 3 mEq. Bicarbonate bath 34. continue to monitor for spontaneous renal recovery. if BP low during HD. IV albumin prn No ACEI/ARB due to MANFRED. Maintain hemodynamics stable. Monitor Input/Output, daily weights and renal function with basic metabolic panel anemia: PRBC as needed. ordered epogen 10,000 unit 3 times a week will give Vit D and iron/MVI, phos binders once pt on diet Dose meds/antibiotics for reduced GFR and dialysis status. Avoid fleets enema/ magnesium based laxatives. Avoid nephrotoxins/NSAIDs/ iodinated contrast ( unless needed emergently) Glycemic control Further work up/management as per primary team Status: Acute (2) Sepsis Status: Acute
[2018-01-01 17:08] VITALS: TEMP 97.8
[2018-01-01] MEDS ORDERED: TPN #9 IV ONE (18:00)
[2018-01-01 19:36] VITALS: BP 126/52; PULSE 94; RESP 28; O2SAT 100
--- NOTE | 2018-01-03 14:03 | CP.PCM.DIS ---
Provider - Provider Date of Admission: 12/16/17 09:19 Attending physician: Silvano Hong DO Consults: Dr Lori Lemons, Dr Kuldeep Hoff and Dr Banerjee Time Spent in preparation of Discharge (in minutes): 29 Hospital Course - Lab Results Lab Results: Micro Results 12/31/17 08:22 Abdomen Gram Stain - Final 12/31/17 08:22 Abdomen Wound Culture - Final Chio Ciferrii 01/01/18 21:26 Nose MRSA Culture - Final MRSA NOT DETECTED 12/24/17 14:20 Blood-Thru Central Line Blood Culture - Final NO GROWTH AFTER 5 DAYS 12/24/17 14:20 Blood-Thru Central Line Gram Stain - Final TEST NOT PERFORMED 12/24/17 09:41 Blood-Thru Central Line Blood Culture - Final NO GROWTH AFTER 5 DAYS 12/24/17 09:41 Blood-Thru Central Line Gram Stain - Final TEST NOT PERFORMED 12/25/17 17:05 Abdomen Gram Stain - Final 12/25/17 17:05 Abdomen Wound Culture - Final Chio Albicans 12/25/17 12:48 Abdomen Gram Stain - Final 12/25/17 12:48 Abdomen Wound Culture - Final Chio Albicans 12/25/17 09:41 Sputum Induced Gram Stain - Final 12/25/17 09:41 Sputum Induced Sputum Culture - Final NORMAL ORAL RAMEZ 12/24/17 12:36 Femer Right Catheter Tip Culture - Final No growth. 12/17/17 16:00 Blood-Venous Blood Culture - Final NO GROWTH AFTER 5 DAYS 12/17/17 16:00 Blood-Venous Gram Stain - Final TEST NOT PERFORMED 12/17/17 16:40 Blood-Venous Blood Culture - Final NO GROWTH AFTER 5 DAYS 12/17/17 16:40 Blood-Venous Gram Stain - Final TEST NOT PERFORMED 12/18/17 08:27 Urine Urine Culture - Final No Growth (<1,000 CFU/ML) 12/16/17 11:33 Naris MRSA Culture (Admit) - Final MRSA NOT DETECTED Most Recent Lab Values WBC 11.4 K/uL (4.8-10.8) H 01/01/18 06:19 RBC 3.21 Mil/uL (3.80-5.20) L 01/01/18 06:19 Hgb 8.6 g/dL (11.0-16.0) L 01/01/18 06:19 Hct 26.7 % (34.0-47.0) L 01/01/18 06:19 MCV 83.2 fL (81.0-99.0) 01/01/18 06:19 MCH 26.9 pg (27.0-31.0) L 01/01/18 06:19 MCHC 32.3 g/dL (33.0-37.0) L 01/01/18 06:19 RDW 16.1 % (11.5-14.5) H 01/01/18 06:19 Plt Count 207 K/uL (130-400) 01/01/18 06:19 MPV 9.7 fL (7.2-11.7) 01/01/18 06:19 Neut % (Auto) 73.4 % (50.0-75.0) 01/01/18 06:19 Lymph % (Auto) 12.7 % (20.0-40.0) L 01/01/18 06:19 [place] % (Auto) 10.3 % (0.0-10.0) H 01/01/18 06:19 Eos % (Auto) 3.1 % (0.0-4.0) 01/01/18 06:19 Baso % (Auto) 0.5 % (0.0-2.0) 01/01/18 06:19 Neut # (Auto) 8.4 K/uL (1.8-7.0) H 01/01/18 06:19 Lymph # (Auto) 1.5 K/uL (1.0-4.3) 01/01/18 06:19 [place] # (Auto) 1.2 K/uL (0.0-0.8) H 01/01/18 06:19 Eos # (Auto) 0.4 K/uL (0.0-0.7) 01/01/18 06:19 Baso # (Auto) 0.1 K/uL (0.0-0.2) 01/01/18 06:19 Neutrophils % (Manual) 72 % (50-75) 12/29/17 06:41 Band Neutrophils % 9 % (0-2) H 12/29/17 06:41 Lymphocytes % (Manual) 10 % (20-40) L 12/29/17 06:41 Reactive Lymphs % 2 % (0-0) H 12/27/17 06:39 Monocytes % (Manual) 7 % (0-10) 12/29/17 06:41 Eosinophils % (Manual) 2 % (0-4) 12/29/17 06:41 Basophils % (Manual) 1 % (0-2) 12/19/17 06:24 Metamyelocytes % 2 % (0-0) H 12/22/17 06:21 Plasma Cell % (Manual) 1 (0-0) H 12/21/17 06:13 Toxic Granulation Present 12/25/17 05:56 Platelet Estimate Normal (NORMAL) 12/29/17 06:41 Plt Clumps, EDTA Present 12/28/17 06:30 Large Platelets Present 12/29/17 06:41 RBC Morphology Normal 12/27/17 06:39 Polychromasia Slight 12/29/17 06:41 Hypochromasia (manual) Slight 12/29/17 06:41 Poikilocytosis (manual Slight 12/29/17 06:41 Basophilic Stippling Slight 12/21/17 06:13 Anisocytosis (manual) Slight 12/29/17 06:41 Microcytosis (manual) Slight 12/29/17 06:41 Macrocytosis (manual) Slight 12/29/17 06:41 Target Cells Slight 12/21/17 06:13 Tear Drop Cells Slight 12/29/17 06:41 Ovalocytes Slight 12/29/17 06:41 [place] Cells Slight 12/18/17 18:44 PT 14.0 SECONDS (9.7-12.2) H 12/24/17 08:54 INR 1.3 12/24/17 08:54 APTT 40 SECONDS (21-34) H 12/18/17 12:39 Puncture Site Rr 12/31/17 05:17 pCO2 29 mm/Hg (35-45) L 12/31/17 05:17 pO2 84 mm/Hg (80-100) 12/31/17 05:17 HCO3 19.8 mmol/L (21-28) L 12/31/17 05:17 ABG pH 7.39 (7.35-7.45) 12/31/17 05:17 ABG Total CO2 18.5 mmol/L (22-28) L 12/31/17 05:17 ABG O2 Saturation 99.2 % (95-98) H 12/31/17 05:17 ABG Base Excess -6.6 mmol/L (-2.0-3.0) L 12/31/17 05:17 ABG Hemoglobin 7.9 g/dL (11.7-17.4) L 12/31/17 05:17 ABG Carboxyhemoglobin 2.1 % (0.5-1.5) H 12/31/17 05:17 POC ABG HHb (Measured) 0.8 % (0.0-5.0) 12/31/17 05:17 ABG Methemoglobin 1.0 % (0.0-3.0) 12/31/17 05:17 Richard Test Pos 12/31/17 05:17 ABG Potassium 3.6 mmol/L (3.6-5.2) 12/29/17 16:01 A-a O2 Difference 165.0 mm/Hg 12/31/17 05:17 Respiratory Index 2.0 12/31/17 05:17 Hgb O2 Saturation 96.1 % (95.0-98.0) 12/31/17 05:17 Sodium 139.0 mmol/l (132-148) 12/29/17 16:01 Chloride 108.0 mmol/L (98-107) H 12/29/17 16:01 Glucose 217 mg/dl (65-105) H 12/29/17 16:01 Lactate 1.5 mmol/L (0.7-2.1) 12/29/17 16:01 Vent Mode Prvc 12/29/17 05:23 Mechanical Rate 14 12/29/17 05:23 FiO2 40.0 % 12/31/17 05:17 Tidal Volume 450 12/29/17 05:23 PEEP 5 12/29/17 05:23 Crit Value Called To [facility] floriculturist 12/18/17 19:02 Crit Value Called By Mandeep 12/18/17 19:02 Crit Value Read Back Y 12/18/17 19:02 Blood Gas Notified Time 19012/18/17 19:02 Sodium 141 mmol/L (132-148) 01/01/18 06:19 Potassium 4.0 mmol/L (3.6-5.2) 01/01/18 06:19 Chloride 105 mmol/L (98-107) 01/01/18 06:19 Carbon Dioxide 18 mmol/L (22-30) L 01/01/18 06:19 Anion Gap 23 (10-20) H 01/01/18 06:19 BUN 82 mg/dL (7-17) H 01/01/18 06:19 Creatinine 6.5 mg/dL (0.7-1.2) H 01/01/18 06:19 Est GFR ( Amer) 7 01/01/18 06:19 Est GFR (Non-Af Amer) 6 01/01/18 06:19 POC Glucose (mg/dL) 182 mg/dL (65-110) H 01/01/18 18:05 Random Glucose 161 mg/dL (65-105) H 01/01/18 06:19 Hemoglobin A1c 5.9 % (4.2-6.5) 12/16/17 15:34 Serum Osmolality 304 mosm/kg (272-300) H 12/17/17 14:16 Lactic Acid 2.4 mmol/L (0.7-2.1) H 12/17/17 14:16 Calcium 8.0 mg/dl (8.6-10.4) L 01/01/18 06:19 Phosphorus 7.5 mg/dL (2.5-4.5) H 01/01/18 06:19 Magnesium 2.1 mg/dL (1.6-2.3) 01/01/18 06:19 Total Bilirubin 1.1 mg/dL (0.2-1.3) 01/01/18 06:19 AST 61 U/L (14-36) H D 01/01/18 06:19 ALT 23 U/L (9-52) 01/01/18 06:19 Alkaline Phosphatase 104 U/L (38-126) 01/01/18 06:19 Total Creatine Kinase 328 U/L (30-135) H 12/17/17 14:16 Total Protein 6.5 g/dL (6.3-8.3) 01/01/18 06:19 Albumin 2.9 g/dL (3.5-5.0) L 01/01/18 06:19 Globulin 3.5 gm/dL (2.2-3.9) 01/01/18 06:19 Albumin/Globulin Ratio 0.8 (1.0-2.1) L 01/01/18 06:19 Prealbumin 10.3 mg/dL (17.6-36.0) L 12/30/17 13:29 Triglycerides 140 mg/dL (0-149) D 12/29/17 06:35 Cholesterol 183 mg/dL (0-199) 12/16/17 15:34 LDL Cholesterol Direct 114 mg/dL (0-129) 12/16/17 15:34 HDL Cholesterol 53 mg/dL (30-70) 12/16/17 15:34 Amylase 397 U/L (30-110) H 12/26/17 20:31 Lipase 3899 U/L (23-300) H 12/26/17 20:31 25-OH Vitamin D Total 23.7 NG/ML (30.0-100.0) L 12/19/17 10:45 Procalcitonin 3.01 NG/ML (0.19-0.49) H 12/30/17 06:23 Arterial Blood Potassium 3.6 mmol/L (3.6-5.2) 12/29/17 16:01 Urine Color Blue (YELLOW) 12/19/17 10:05 Urine Clarity Hazy (Clear) 12/19/17 10:05 Urine pH 5.0 (5.0-8.0) 12/19/17 10:05 Ur Specific [place] 1.020 (1.003-1.030) 12/19/17 10:05 Urine Protein 2+ mg/dL (NEGATIVE) H 12/19/17 10:05 Urine Glucose (UA) 1+ mg/dL (Normal) 12/19/17 10:05 Urine Ketones Trace mg/dL (NEGATIVE) 12/19/17 10:05 Urine Blood 2+ (NEGATIVE) H 12/19/17 10:05 Urine Nitrate Negative (NEGATIVE) 12/19/17 10:05 Urine Bilirubin Negative (NEGATIVE) 12/19/17 10:05 Urine Urobilinogen Normal mg/dL (0.2-1.0) 12/19/17 10:05 Ur Leukocyte Esterase Negative Orin/uL (Negative) 12/19/17 10:05 Urine WBC (Auto) 2 /hpf (0-5) 12/19/17 10:05 Urine RBC (Auto) 47 /hpf (0-3) H 12/19/17 10:05 Ur Squamous Epith Cells < 1 /hpf (0-5) 12/18/17 08:27 Urine Bacteria Rare (<OCC) 12/18/17 08:27 Urine Yeast (Budding) Few /hpf (NEGATIVE) H 12/18/17 08:27 Urine Eosinophils Negative (NEGATIVE) 12/18/17 08:27 Urine Osmolality 549 mosm/kg (300-1000) 12/18/17 08:27 Ur Random Creatinine 105.8 mg/dL 12/18/17 08:27 Ur Random Sodium 126 mmol/L 12/18/17 08:27 Urine Chloride 112 mmol/L (32-290) 12/18/17 08:32 Stool Occult Blood Negative (NEGATIVE) 12/25/17 14:30 C. 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 She is now been transferred over to [facility] in [place], [place] While undergoing removal of the tumor, the patient had extensive bleeding as well as the development of hypertensive urgency. She was moved to the ICU. The patient was then admitted to the hospitalist service and we've been seeing her since then. During the first days in the ICU she had systolic blood pressures greater than 200. This required additional brief duration of being on a Cardene drip. The next subsequent days the blood pressure did decrease. Likely the elevated blood pressure was secondary to removal of the carcinoid tumor. While in the ICU on the third day on exam of the abdomen she had an acute guarding of the abdomen and rebound tenderness. A stat CAT scan of the abdomen and pelvis was ordered and it showed that the area where she had bleeding at unfortunately gotten worse. There was concerns of bile leakage as well she was immediately moved to the operating room where she underwent an exploratory laparotomy she will card to KORI drains placed in. These KORI drains had been emptied daily. He often filled with bile leakage. She underwent several attempts to try to repair this area. She also had an abscess that required drainage as well as starting wound vacuum. Because of the nature of the injury, the abscess development while in the ICU she required IV antibiotics During this time the ICU she was observed to slowly have worsening renal function ultimately she required to be started on hemodialysis On 01/01, she underwent an attempt to place a stent the area of the bile leakage however this was not successful. The surgical team discussed the case with the family as well as hepatobiliary surgery at [facility] in [facility]. Because of the ongoing bile leakage was seen he was felt that the best option for the patient was to transfer the patient. And so she was transferred on the late afternoon 01/01 Discharge Exam - Head Exam Head Exam: NORMOCEPHALIC Discharge Plan - Follow Up Plan Condition: SERIOUS Disposition: Trans to Other Acute Care Hosp Instructions: Acute Kidney Failure (DC), Peritonitis (DC)
== END 2018-01-01 20:29 | disposition short-term general hospital (02) | DRG 326 ==
LOC: C.ENDO 06:07 → C.9S 09:19 → C.9I 10:45
PROVIDERS: ADMIT Hospitalist; ATTEND Hospitalist
PROC: 3E0G8GC Introduction of Other Therapeutic Substance into Upper GI, Via Natural or Artificial Opening Endoscopic (ICD-10-PCS; 2017-12-16)
PROC: 0D598ZZ Destruction of Duodenum, Via Natural or Artificial Opening Endoscopic (ICD-10-PCS; 2017-12-16)
PROC: 0W3P8ZZ Control Bleeding in Gastrointestinal Tract, Via Natural or Artificial Opening Endoscopic (ICD-10-PCS; 2017-12-16)
PROC: 0DB98ZZ Excision of Duodenum, Via Natural or Artificial Opening Endoscopic (ICD-10-PCS; 2017-12-16 08:16)
PROC: 0DC90ZZ Extirpation of Matter from Duodenum, Open Approach (ICD-10-PCS; 2017-12-18)
PROC: 0DU907Z Supplement Duodenum with Autologous Tissue Substitute, Open Approach (ICD-10-PCS; 2017-12-18)
PROC: 0DBW0ZX Excision of Peritoneum, Open Approach, Diagnostic (ICD-10-PCS; 2017-12-18)
PROC: 0W9G00Z Drainage of Peritoneal Cavity with Drainage Device, Open Approach (ICD-10-PCS; 2017-12-18)
PROC: 0JH83VZ Insertion of Infusion Pump into Abdomen Subcutaneous Tissue and Fascia, Percutaneous Approach (ICD-10-PCS; 2017-12-18)
PROC: 0JB80ZZ Excision of Abdomen Subcutaneous Tissue and Fascia, Open Approach (ICD-10-PCS; 2017-12-18)
PROC: 5A1955Z Respiratory Ventilation, Greater than 96 Consecutive Hours (ICD-10-PCS; 2017-12-18)
PROC: 0DBU0ZZ Excision of Omentum, Open Approach (ICD-10-PCS; principal; 2017-12-18 16:45)
PROC: 5A1D70Z Performance of Urinary Filtration, Intermittent, Less than 6 Hours Per Day (ICD-10-PCS; 2017-12-20)
PROC: 30233N1 Transfusion of Nonautologous Red Blood Cells into Peripheral Vein, Percutaneous Approach (ICD-10-PCS; 2017-12-20)
PROC: 06HM33Z Insertion of Infusion Device into Right Femoral Vein, Percutaneous Approach (ICD-10-PCS; 2017-12-20)
PROC: 5A1D70Z Performance of Urinary Filtration, Intermittent, Less than 6 Hours Per Day (ICD-10-PCS; 2017-12-21)
PROC: 5A1D70Z Performance of Urinary Filtration, Intermittent, Less than 6 Hours Per Day (ICD-10-PCS; 2017-12-23)
PROC: 02HV33Z Insertion of Infusion Device into Superior Vena Cava, Percutaneous Approach (ICD-10-PCS; 2017-12-25)
PROC: B518ZZA Fluoroscopy of Superior Vena Cava, Guidance (ICD-10-PCS; 2017-12-25)
PROC: 5A1D70Z Performance of Urinary Filtration, Intermittent, Less than 6 Hours Per Day (ICD-10-PCS; 2017-12-25)
PROC: 3E0336Z Introduction of Nutritional Substance into Peripheral Vein, Percutaneous Approach (ICD-10-PCS; 2017-12-26)
PROC: 5A1D70Z Performance of Urinary Filtration, Intermittent, Less than 6 Hours Per Day (ICD-10-PCS; 2017-12-27)
PROC: 5A1D70Z Performance of Urinary Filtration, Intermittent, Less than 6 Hours Per Day (ICD-10-PCS; 2017-12-30)
PROC: 0W9F3ZZ Drainage of Abdominal Wall, Percutaneous Approach (ICD-10-PCS; 2017-12-31)
PROC: 2W13X6Z Compression of Abdominal Wall using Pressure Dressing (ICD-10-PCS; 2017-12-31)
PROC: 5A1D70Z Performance of Urinary Filtration, Intermittent, Less than 6 Hours Per Day (ICD-10-PCS; 2018-01-01)
DX: C7A.010 Malignant carcinoid tumor of the duodenum (principal); K26.6 Chronic or unspecified duodenal ulcer with both hemorrhage and perforation; A41.9 Sepsis, unspecified organism; J96.01 Acute respiratory failure with hypoxia; K65.3 Choleperitonitis; N17.0 Acute kidney failure with tubular necrosis; R65.20 Severe sepsis without septic shock; E46 Unspecified protein-calorie malnutrition; E87.2 Acidosis; I16.9 Hypertensive crisis, unspecified; J98.11 Atelectasis; L02.211 Cutaneous abscess of abdominal wall; L03.311 Cellulitis of abdominal wall; R18.8 Other ascites; I97.88 Other intraoperative complications of the circulatory system, not elsewhere classified; T81.4XXA Infection following a procedure, initial encounter; K91.61 Intraoperative hemorrhage and hematoma of a digestive system organ or structure complicating a digestive system procedure; K85.90 Acute pancreatitis without necrosis or infection, unspecified; B37.89 Other sites of candidiasis; I12.9 Hypertensive chronic kidney disease with stage 1 through stage 4 chronic kidney disease, or unspecified chronic kidney disease; D64.9 Anemia, unspecified; E04.1 Nontoxic single thyroid nodule; E66.01 Morbid (severe) obesity due to excess calories; E83.51 Hypocalcemia; J44.9 Chronic obstructive pulmonary disease, unspecified; N18.9 Chronic kidney disease, unspecified; I16.0 Hypertensive urgency; K66.8 Other specified disorders of peritoneum; F32.9 Major depressive disorder, single episode, unspecified; F41.9 Anxiety disorder, unspecified; K31.9 Disease of stomach and duodenum, unspecified; M54.30 Sciatica, unspecified side; Z96.653 Presence of artificial knee joint, bilateral; Z85.3 Personal history of malignant neoplasm of breast; Z87.11 Personal history of peptic ulcer disease; Z87.891 Personal history of nicotine dependence; Z68.38 Body mass index [BMI] 38.0-38.9, adult; Z91.018 Allergy to other foods; Z90.49 Acquired absence of other specified parts of digestive tract